=== PATIENT | female | born 1980 | race Caucasian/White ===

== ENCOUNTER 2018-02-07 20:45 | Inpatient (IN) | payer MEDICAID, SELFPAY ==
[2018-02-07 20:46] VITALS: BP 119/82; PULSE 92; RESP 16; TEMP 36.2; O2SAT 97; BMI 30.1
--- NOTE | 2018-02-07 21:04 | ED.DCSUM_ITS ---
- ER Visit Summary Date of Service: 02/07/18 Chief Complaint: Right ear pain History of Present Illness: The patient is a 37 F who presents for 1 day of severe right ear pain. Patient states she woke up with dull pain that became gradually more severe during the day. Pain now involves her jaw, behind the ear, the right neck, and radiates into the right shoulder. Patient denies fever. She is tried Tylenol without any improvement. She is now feeling nauseated secondary to the pain. No cough, chest pain, abdominal pain, vomiting. Patient is status post hysterectomy. She denies any prior history of pain this severe but has had right ear pain in the past. Physical Examination: Vital signs: afebrile, hemodynamically stable, no hypoxia on room air General: well nourished, well developed, in no distress, appears uncomfortable Skin: warm, dry, no rash, no pallor HEENT: normocephalic and atraumatic; PERRL, EOMI, moist mucous membranes, posterior oropharyngeal erythema noted, pain with opening of the mouth, right TM is dull, bulging, erythematous, external ear canal has exudate and swelling, tenderness over the mastoid, tenderness over the right anterior and posterior neck, full range of motion, no meningismus Cardiovascular: regular rate and rhythm without murmurs, no peripheral edema Respiratory: No increased work of breathing MSK: Moves all extremities, no deformities, normal strength Neuro: Awake and alert, oriented ?4. No facial droop, sensation and motor func tion intact and symmetric Test Results: Abnormal Lab Results 02/07/18 02/07/18 21:25 21:25 WBC 8.6 RBC 4.71 Hgb 14.1 Hct 42.7 MCV 90.7 MCH 29.9 MCHC 33.0 RDW 13.8 RDW Differential 45.1 H Plt Count 256 MPV 10.3 Immature Gran % (Auto) 0.200 Neut % (Auto) 64.4 Lymph % (Auto) 27.4 [place] % (Auto) 4.9 Eos % (Auto) 2.5 Baso % (Auto) 0.6 Absolute Neuts (auto) 5.6 Absolute Lymphs (auto) 2.37 Total Counted Not Reportable Sodium 145 Potassium 3.8 Chloride 110 H Carbon Dioxide 30.0 Anion Gap 5 BUN 12 Creatinine 0.81 Estim Creat Clear Calc 77.90 Est GFR (MDRD) Af Amer 102 Est GFR (MDRD) Non-Af 84 BUN/Creatinine Ratio 14.9 Glucose 109 H Calcium 8.7 Medications Given Cefepime HCl 2 gm/ Sodium (Chloride) 100 mls @ 200 mls/hr IV X1 ONE Stop: 02/07/18 22:50 Vancomycin HCl 2,000 mg/ (Dextrose) 540 mls @ 250 mls/hr IV X1 ONE Stop: 02/08/18 00:39 Discontinued Medications Ketorolac Tromethamine (Toradol) 15 mg IV X1 ONE Stop: 02/07/18 21:02 Last Admin: 02/07/18 21:20 Dose: 15 mg Morphine Sulfate () 4 mg IV X1 ONE Stop: 02/07/18 22:23 Ondansetron HCl (Zofran) 4 mg IV X1 ONE Stop: 02/07/18 22:23 Clinical Impression(s) from Imaging Studies CT Orbit Sella Inner 02/07/18 21:06 IMPRESSION: Findings consistent with right otomastoiditis. Cannot exclude possibility of coexisting cholesteatoma. Electronically Signed: Remy Holloway MD at 22:16 EDT , Service support , Emergency Department Course and Treatment: Patient presents with severe right- sided ear pain, and has no findings of rash concerning for zoster. Because of the severe pain, including mastoid tenderness, workup was performed to evaluate for possible mastoiditis. Patient was given Toradol IV for pain without any relief. Labs showed no leukocytosis. CT of the right mastoid was performed and was consistent with right otomastoiditis with possibility of coexisting cholesteatoma. Patient was started on IV vancomycin and cefepime. She was given morphine and Zofran for further pain control. Patient will be admitted for further valuation and treatment of acute otomastoiditis. She was discussed with the hospitalist for admission. Treatment Plan: [] Disposition: [] Impression: Acute right otomastoiditis This note was generated with [employer] software. It may contain incorrect words, spelling, and punctuation that were not noted in review of the chart prior to signing ED Disposition - Plan for ED Patient: Chief Complaint: Ear Problem Referrals: Marlon Luz MD [NON-STAFF] -
--- NOTE | 2018-02-07 21:06 | CT_ITS ---
CT of the IACs/temporal bone INDICATION: Right ear infection TECHNIQUE: CT of the right ureter was performed without contrast the axial plane followed by sagittal and coronal reconstructions. Radiographic technique was optimized to limit patient radiation dose. DLP was 899.25 FINDINGS: There is soft tissue thickening of the posterior superior wall of the right external auditory canal with mild retraction of the tympanic membrane. There is involvement of the [place] septum and possibility of cholesteatoma cannot be excluded. There is soft tissue thickening which appears to be contiguous with the malleus There is also soft tissue thickening within the posterior medial tympanic cavity contiguous with the cochlea. There is also focal involvement of the anterior medial mastoid air cell complex. CT/Orb Sella Post Fossa Ear w/o IMPRESSION: Findings consistent with right otomastoiditis. Cannot exclude possibility of coexisting cholesteatoma. Electronically Signed: Remy Holloway MD at 22:16 EDT , Service support ,
[2018-02-07] MEDS: Ketorolac 15 MG/ML Vial IV (21:20)
[2018-02-07 21:42] LABS: Absolute Lymphocyte Count 2.37 X10^3/ul (0.83-4.51); Absolute Neutrophil Count 5.6 X10^3/uL (2.0-7.7); Basophil# 0.05 X10^3/uL; Basophil% 0.6 % (0-1); Eosinophil# 0.22 X10^3/uL; Eosinophils% 2.5 % (0-5); Hematocrit 42.7 % (37-47); Hemoglobin 14.1 g/dl (12.0-15.0); Lymphocyte # 2.37 X10^3/ul (4.0); Lymphocyte % 27.4 % (19-41); Mean Corpuscular Hgb 29.9 pg (27.0-32.0); Mean Corpuscular Volume 90.7 fL (81-99); Mean Platelet Vol. 10.3 fl (6.2-12.0); Monocyte# 0.42 X10^3/uL; Monocyte% 4.9 % (0-10); Neutrophil # 5.56 X10^3/uL (2.7-7.7); Neutrophil % 64.4 % (47-70); Platelet Count 256 K/mm3 (150-450); RBC Distribution Width CV 13.8 % (11.6-14.6); RBC Distribution Width SD 45.1 fl (35.1-43.9); Red Blood Count 4.71 M/mm3 (4.2-5.4); White Blood Count 8.6 K/mm3 (4.4-11.0)
[2018-02-07 21:46] LABS: POSITIVE COUNT NO; POSITIVE DIFFERENTIAL NO; POSITIVE MORPHOLOGY NO
[2018-02-07 22:15] LABS: BUN 12 mg/dL (7-18); Creatinine, Serum 0.81 mg/dL (0.55-1.02); Glucose 109 mg/dL (74-106)
[2018-02-07 22:16] LABS: Anion Gap 5 (5-15); BUN/Creat Ratio 14.9 RATIO (10-20); Calcium,Total 8.7 mg/dL (8.5-10.1); Chloride 110 mmol/L (98-107); EST Glomerular Filtration Rate 84 mL/min (>60); Est Glom Filt Rate - Afr Amer 102 mL/min (>60); Potassium 3.8 mmol/L (3.5-5.1); Sodium Level 145 mmol/L (136-145)
[2018-02-07] MEDS: Ondansetron 4 MG/2 ML Vial IV (22:37)
[2018-02-07] MEDS: Morphine 4 MG/ML Syringe IV (22:37)
--- NOTE | 2018-02-07 23:16 | HP.PCM_ITS ---
Problem List (1) Otitis media Status: Acute (2) Mastoiditis Status: Acute History of Present Illness Date of Admission: 02/07/18 Chief Complaint: right ear pain The patient is a 37 year old F with a significant history of prediabetes who presents because of persistent sharp pain of her right ear that began on the day of admission. The pain radiates to her right shoulder and onto her neck. Patient tried Tylenol; peroxide and hot compresses without any real relief. She reports that hot drink helps her pain somewhat also not opening her mouth improves her pain. Her pain is exacerbated by talking and by moving. Past Medical History Past Medical History (Chronic Problems): Chronic Problems History of small bowel obstruction (Chronic) History of multiple abdominal surgeries (Chronic) Allergies hydromorphone HCl [From Dilaudid] Allergy (Severe, Verified 02/07/18 20:46) Anaphylaxis aspirin [From Percodan] Allergy (Intermediate, Verified 02/07/18 20:46) Swelling oxycodone terephthalate [From Percodan] Allergy (Intermediate, Verified 02/07/18 20:46) Swelling amoxicillin Allergy (Verified 02/07/18 20:46) Hives azithromycin Allergy (Verified 02/07/18 20:46) Other erythromycin base Allergy (Verified 02/07/18 20:46) Hives oxycodone HCl [From Percocet] Allergy (Verified 02/07/18 20:46) Anaphylaxis propoxyphene napsylate [From Darvocet-N] Allergy (Verified 02/07/18 20:46) Other Sulfa (Sulfonamide Antibiotics) Allergy (Verified 02/07/18 20:46) Other tramadol Allergy (Verified 02/07/18 20:46) Hives gabapentin Adverse Reaction (Verified 02/07/18 20:46) Other Home Medications: Ambulatory Orders Medication Instructions Recorded Inulin/Chromium Picolinate [Fiber 1 tab PO DAILY 02/08/18 Gummies] Surgical History: hysterectomy, - - Small bowel reconstruction Lives: - - Lives with a friend. Smoking Status: Current every day smoker Tobacco Use: Cigarettes Alcohol: None - *Family History Paternal History Items: Cancer, Diabetes, - - luekemia, strokes. Maternal History Items: Cancer Review of Systems Constitutional: Denies: Chills, Fever, Weight Change HEENT: Denies: Head Aches, Sinus Congestion, Sinus Drainage Cardiovascular: Denies: Chest Pain, Palpitations Respiratory: Denies: Cough, Shortness of breath at rest, Sputum production Gastrointestinal: Denies: Abdominal Pain, Nausea, Vomiting Genitourinary: Denies: Dysuria Musculoskeletal: Denies: Joint Pain, Joint Tenderness Skin: Denies: Rash, Wounds Neurological: Denies: Numbness, Tingling, Focal weakness Psychiatric: Denies: Anxiety, Depression, Homicidal Ideations, Suicidal Ideations Hematologic/ Lymphatic: Denies: Easy Bruising, Easy Bleeding VTE Information - Inpt Only VTE Present on Admission: No VTE Mechan Device Prophylaxis: None VTE Pharm Prophylaxis ordered?: Yes Patient Problems: Active and Suspected Problems Otitis media (Acute) Mastoiditis (Acute) - Physical Exam General: Alert, Oriented x3, Cooperative HEENT: Atraumatic, PERRLA, EOMI, Normocephalic, - - Tympanic membrane with redness and mabry discharge on right side. Tender right ear and right mastoid area. Neck: Supple, No JVD, Negative Carotid Bruits Lungs: Clear to auscultation, Normal air movement Cardiovascular: Regular rate, No murmurs Abdomen: Bowel Sounds Present, Soft, Non Tender Extremities: No edema, Capillary Refill Less than 3 Seconds Skin: No rashes, No breakdown Musculoskeletal: No Tenderness to Palpation of Joints or Extremities Neurological: Cranial nerves II-XII grossly intact Psych/Mental Status: Normal Affect, Appropriate Vital Signs Temp Pulse Resp BP Pulse Ox 97.2 F L 92 16 119/82 H 97 02/07/18 20:46 02/07/18 20:46 02/07/18 20:46 02/07/18 20:46 02/07/18 20:46 Oxygen Delivery Method Room Air Weight: 77.1 kg Body Mass Index (BMI) 30.1 Laboratory Tests Past 24 Hrs 02/07/18 02/07/18 21:25 21:25 WBC 8.6 RBC 4.71 Hgb 14.1 Hct 42.7 MCV 90.7 MCH 29.9 MCHC 33.0 RDW 13.8 RDW Differential 45.1 H Plt Count 256 MPV 10.3 Immature Gran % (Auto) 0.200 Neut % (Auto) 64.4 Lymph % (Auto) 27.4 [place] % (Auto) 4.9 Eos % (Auto) 2.5 Baso % (Auto) 0.6 Absolute Neuts (auto) 5.6 Absolute Lymphs (auto) 2.37 Total Counted Not Reportable Sodium 145 Potassium 3.8 Chloride 110 H Carbon Dioxide 30.0 Anion Gap 5 BUN 12 Creatinine 0.81 Estim Creat Clear Calc 77.90 Est GFR (MDRD) Af Amer 102 Est GFR (MDRD) Non-Af 84 BUN/Creatinine Ratio 14.9 Glucose 109 H Calcium 8.7 Assessment/Plan All Active Problems Otitis media (Acute) Mastoiditis (Acute) Obesity (BMI 30-39.9) (Acute) Ileus (Acute) The patient is a 37 year old F with a significant history of tobacco abuse; and prediabetes who presents with persistent sharp pain of her right ear; right external ear tenderness; redness and discharge of TM; and tender mastoid area consistent with acute R otitis media with otitis external and mastoiditis. Acute right otitis media with otitis external and mastoiditis. Review of labs shows normal white count. Patient received vancomycin and cefepime at emergency department. Patient is allergic to penicillin. Vancomycin and cefepime continued. Reportedly patient is having itchiness in the setting of antibiotic use. As needed Benadryl ordered. ENT and infectious disease consulted to optimize management. Patient reports that in the past she saw Dr. Shar Wiley, ENT for left ear infection; and she had wick placed at that time in her left ear. We will trend CBC and BMP. Mechanical soft diet ordered. Patients with hyperchloremia and high normal sodium; anticipating decrease intake due to pain in right ear;half-normal saline ordered As needed Toradol and morphine ordered. Tobacco abuse Patient declined nicotine patch Counselled. Inpatient consult for smoking cessation. DVT prophylaxis subcutaneous lovenox Code Visit OBSV E&M: 69822 Initial observation care L2
[2018-02-07 23:24] VITALS: BP 94/70; PULSE 62; RESP 16; O2SAT 97
[2018-02-08] VITALS (9 sets, daily range): BP systolic 70–134; BP diastolic 36–71; PULSE 63–85; RESP 14–18; TEMP 36.7–37.7; O2SAT 93–100; BMI 28.7
[2018-02-08] MEDS: DiphenhydrAMINE 50 MG/ML Syringe 12.5 MG IV (01:25)
[2018-02-08] MEDS: 0.9% NaCl Peripheral Flush Adult/Peds IV ×4 (01:25→21:41)
[2018-02-08] MEDS: Morphine 2 MG/ML Syringe IV (01:25)
[2018-02-08] MEDS: 0.45% Normal Saline 1,000 ML 75 ML IV (01:25)
[2018-02-08] MEDS: Ketorolac 30 MG/ML Syringe IV ×2 (03:30→20:51)
--- NOTE | 2018-02-08 04:25 | PHA.PHARE_ITS ---
Consult Pharmacy has been consulted to manage selected antiobiotic: Vancomycin Type of Consult: New start Prior Doses of Antibiotics Received/Current Regimen: Medications Cefepime HCl 2 gm/ Sodium (Chloride) 100 mls @ 200 mls/hr IV Q8 [facility] Labs: Sodium 145 mmol/L (136-145) 02/07/18 21:25 Potassium 3.8 mmol/L (3.5-5.1) 02/07/18 21:25 Chloride 110 mmol/L (98-107) H 02/07/18 21:25 Carbon Dioxide 30.0 mmol/L (21.0-32.0) 02/07/18 21:25 Anion Gap 5 (5-15) 02/07/18 21:25 BUN 12 mg/dL (7-18) 02/07/18 21:25 Creatinine 0.81 mg/dL (0.55-1.02) 02/07/18 21:25 Est GFR (MDRD) Af Amer 102 mL/min (>60) 02/07/18 21:25 Est GFR (MDRD) Non-Af 84 mL/min (>60) 02/07/18 21:25 BUN/Creatinine Ratio 14.9 RATIO (10-20) 02/07/18 21:25 Glucose 109 mg/dL (74-106) H 02/07/18 21:25 Estimated Creatinine Clearance: 77.9 Goal Trough: 15-20 mcg/mL Pharmacy Plan for Drug Dosing: Pharmacy Service will continue to monitor and adjust dosing as required. Medications Vancomycin HCl (Vancomycin) 1,000 mg in 200 mls @ 200 mls/hr IV Q12H [facility] Discontinued Medications Vancomycin HCl 2,000 mg/ (Dextrose) 540 mls @ 250 mls/hr IV X1 ONE Stop: 02/08/18 00:39 Last Admin: 02/07/18 23:21 Dose: 250 mls/hr Follow-Up Labs: Trough Vancomycin Labs to be done on [date and time ordered]: 02/09 @ 1135
[2018-02-08] MEDS: DiphenhydrAMINE 25 MG Capsule PO (05:57)
[2018-02-08 06:46] LABS: Absolute Lymphocyte Count 0.93 X10^3/ul (0.83-4.51); Absolute Neutrophil Count 6.7 X10^3/uL (2.0-7.7); Basophil# 0.02 X10^3/uL; Basophil% 0.2 % (0-1); Eosinophil# 0.04 X10^3/uL; Eosinophils% 0.5 % (0-5); Hematocrit 43.7 % (37-47); Hemoglobin 13.6 g/dl (12.0-15.0); Lymphocyte # 0.93 X10^3/ul (4.0); Lymphocyte % 11.6 % (19-41); Mean Corp Hgb Conc 31.1 g/gl (32-36); Mean Corpuscular Hgb 29.1 pg (27.0-32.0); Mean Corpuscular Volume 93.6 fL (81-99); Mean Platelet Vol. 9.8 fl (6.2-12.0); Monocyte# 0.32 X10^3/uL; Neutrophil # 6.68 X10^3/uL (2.7-7.7); Neutrophil % 83.5 % (47-70); Platelet Count 142 K/mm3 (150-450); RBC Distribution Width CV 13.8 % (11.6-14.6); RBC Distribution Width SD 45.1 fl (35.1-43.9); Red Blood Count 4.67 M/mm3 (4.2-5.4)
[2018-02-08 06:49] LABS: POSITIVE COUNT NO; POSITIVE DIFFERENTIAL NO; POSITIVE MORPHOLOGY NO
[2018-02-08 07:08] LABS: Anion Gap 10 (5-15); BUN 14 mg/dL (7-18); Chloride 114 mmol/L (98-107); Creatinine, Serum 0.88 mg/dL (0.55-1.02); EST Glomerular Filtration Rate 77 mL/min (>60); Est Glom Filt Rate - Afr Amer 93 mL/min (>60); Glucose 117 mg/dL (74-106); Potassium 3.8 mmol/L (3.5-5.1); Sodium Level 140 mmol/L (136-145)
--- NOTE | 2018-02-08 09:53 | PCM.HP.ID ---
Problem List (1) Mastoiditis Status: Acute Reason for Consult: mastoiditis Consulted by: Dr. Smith History of Present Illness: The patient is a 37 year old F with no h/o MRSA infection who presented yesterday with sudden onset of severe, stabbing R ear pain. No fever, no chills, no drainage from her ear. No recent dental problems. No recent abx. Multiple family members sick recently. Came to ED< started on cefepime and vanc. Some head and neck pain, no stiffness. No vision changes. Pain minimally improved today. Full ROS performed and neg except as noted above. - Medical History Past Medical History (Chronic Problems): Chronic Problems History of small bowel obstruction (Chronic) History of multiple abdominal surgeries (Chronic) Allergies/Adverse Reactions: Allergies hydromorphone HCl [From Dilaudid] Allergy (Severe, Verified 02/08/18 00:35) Anaphylaxis aspirin [From Percodan] Allergy (Intermediate, Verified 02/08/18 00:35) Swelling oxycodone terephthalate [From Percodan] Allergy (Intermediate, Verified 02/08/18 00:35) Swelling amoxicillin Allergy (Verified 02/08/18 00:35) Hives azithromycin Allergy (Verified 02/08/18 00:35) Other erythromycin base Allergy (Verified 02/08/18 00:35) Hives oxycodone HCl [From Percocet] Allergy (Verified 02/08/18 00:35) Anaphylaxis propoxyphene napsylate [From Darvocet-N] Allergy (Verified 02/08/18 00:35) Other Sulfa (Sulfonamide Antibiotics) Allergy (Verified 02/08/18 00:35) Other tramadol Allergy (Verified 02/08/18 00:35) Hives gabapentin Adverse Reaction (Verified 02/08/18 00:35) Other Home Medications: Ambulatory Orders Medication Instructions Recorded Inulin/Chromium Picolinate [Fiber 1 tab PO DAILY 02/08/18 Gummies] - Social History Tobacco Use: cigarettes Vital Signs Temp Pulse Resp BP Pulse Ox 98.1 F 63 16 94/53 L 95 02/08/18 03:28 02/08/18 03:28 02/08/18 03:28 02/08/18 03:28 02/08/18 03:35 Oxygen Delivery Method Room Air Weight: 74.191 kg Body Mass Index (BMI) 28.7 Laboratory Tests Past 24 Hrs 02/07/18 02/07/18 02/08/18 21:25 21:25 06:34 WBC 8.6 RBC 4.71 Hgb 14.1 Hct 42.7 MCV 90.7 MCH 29.9 MCHC 33.0 RDW 13.8 RDW Differential 45.1 H Plt Count 256 MPV 10.3 Immature Gran % (Auto) 0.200 Neut % (Auto) 64.4 Lymph % (Auto) 27.4 [place] % (Auto) 4.9 Eos % (Auto) 2.5 Baso % (Auto) 0.6 Absolute Neuts (auto) 5.6 Absolute Lymphs (auto) 2.37 Total Counted Not Reportable Sodium 145 140 Potassium 3.8 3.8 Chloride 110 H 114 H Carbon Dioxide 30.0 16.0 L Anion Gap 5 10 BUN 12 14 Creatinine 0.81 0.88 Estim Creat Clear Calc 77.90 71.70 Est GFR (MDRD) Af Amer 102 93 Est GFR (MDRD) Non-Af 84 77 BUN/Creatinine Ratio 14.9 16.0 Glucose 109 H 117 H Calcium 8.7 8.0 L 02/08/18 06:34 WBC 8.0 RBC 4.67 Hgb 13.6 Hct 43.7 MCV 93.6 MCH 29.1 MCHC 31.1 L RDW 13.8 RDW Differential 45.1 H Plt Count 142 L MPV 9.8 Immature Gran % (Auto) 0.200 Neut % (Auto) 83.5 H Lymph % (Auto) 11.6 L [place] % (Auto) 4.0 Eos % (Auto) 0.5 Baso % (Auto) 0.2 Absolute Neuts (auto) 6.7 Absolute Lymphs (auto) 0.93 Total Counted Not Reportable Sodium Potassium Chloride Carbon Dioxide Anion Gap BUN Creatinine Estim Creat Clear Calc Est GFR (MDRD) Af Amer Est GFR (MDRD) Non-Af BUN/Creatinine Ratio Glucose Calcium - Other Studies Radiology: [] reviewed Other Studies: [] Route of nutrition/ use of supplements: [] Nutritional Intake: [] IV Site: [] [place] Catheter: [] - Physical Exam General: Alert, - - uncomfortable HEENT: Atraumatic, PERRLA, EOMI, - - poor dentition, multiple rotten/cracked teeth. R ear very tender, mild redness inside canal Neck: Supple, No Nodes Lungs: Clear to auscultation, Normal air movement Cardiovascular: Regular rate, Regular Rhythm Abdomen: Soft, Non Tender, Non-Distended Extremities: No edema Skin: No rashes IV Site: Peripheral, without redness Musculoskeletal: No Tenderness to Palpation of Joints or Extremities Neurological: Cranial nerves II-XII grossly intact - Assessment/Plan Antibiotics: [] Assessment/Plan: [] Active and Suspected Problems Otitis media (Acute) Mastoiditis (Acute) R ear acute mastoiditis - ENT to see. Order MRSA screen. No purulence draining. On vanc/cefepime. Will order panorex due to poor dentition. Will follow, thank you.
--- NOTE | 2018-02-08 09:57 | RAD_ITS ---
STUDY: X-RAY - MANDIBLE (COMPLETE) REASON FOR EXAM: Female, 37 years old. Acute right otomastoiditis. TECHNIQUE: 6 view(s) of the mandible were obtained. COMPARISON: None. FINDINGS: Normal mandible. Normal visualized right temporomandibular joint. Normal visualized left temporomandibular joint. The remaining visualized osseous structures are normal. The soft tissue structures are unremarkable. RAD/Mandible Min 4 Views IMPRESSION: Normal x-ray examination of the mandible. Electronically Signed: Kali Luque MD at 12:20 EDT Tel [phone], Service support ,
--- NOTE | 2018-02-08 10:18 | CASEMGMT ---
Social Work Assessment Referral Date: 02/08/2018 Date of Assessment: 02/08/2018 Reason for consult: Self-pay status Informant: SW Personal status: SW met with pt to complete initial assessment. Pt is alert and orientated and was sleeping when this worker entered the room. Pt states that she currently lives with her sister and she works at [employer]. Pt states that she had Medicaid/[employer] but she let it relapse. SW encouraged pt to be in contact with [employer] to determine what paperwork needs to be filled out so she is able to get her insurance back. Pt states that she has close family members. Pt states that her plan is to return to her sister's home at discharge, denied additional needs or concerns at this time. Substance Abuse Hx: Pt denied. Per H+P pt does use tobacco. Mental Health Hx: Pt states that at one time she was informed that she had Bipolar. Pt states she doesn't take medication for it though and has never seen a counselor. Pt denied wanting counseling resources. SW provided pt with [facility]CAP application, [facility], [employer], [employer], prescription assistance and Medicaid Application. SW again encouraged pt to be on contact with [employer] to see about reinstating her Medicaid. Pt states understanding. Plan: Pt to discharge home. Pt to follow up with [employer] in regards to Medicaid. Donna Martinez PRIMING MACHINE OPERATOR, HVAC INSTRUCTOR
[2018-02-08] MEDS: Enoxaparin 40 MG/0.4 ML Syringe SC (10:23)
--- NOTE | 2018-02-08 11:15 | NURSING ---
Patient off unit to x-ray.
[2018-02-08] MEDS: Vancomycin IV 1,000 MG/200 ML BAG 200 MG IV ×2 (11:54→23:04)
--- NOTE | 2018-02-08 12:21 | PCM.CONS.GEN ---
Problem List (1) Mastoiditis Status: Acute (2) Otitis media Status: Acute Reason for Consult Date of Consultation: 02/08/18 Reason for Consultation: mastoiditis History of Present Illness: The patient is a 37 year old F who was admitted to the emergency department for acute onset of severe right-sided ear pain. She reports that she was at work where she suffered a sudden onset of a sharp stabbing ear pain on the right side without a precipitating event. During her hospitalization this has improved somewhat but the pain continues to radiate down along her jaw and right side of the neck. She denies prior history of ear surgery, ear disease, or infection. I reminded her that her admission note states prior treatment of that ear but she states this was distant and prior to delivery of her son many years ago. She does admit to possible water exposure to that ear prior to the onset of this pain complaint. She denies recent illness or sick contacts. She reports the intravenous antibiotic medication seems to be resulting in some improvement. She reports that the pain is severe and stabbing in nature on the right side. She denies any drainage from the ear or significant hearing loss or dizziness. [] Past Medical History Past Medical History (Chronic Problems): Chronic Problems History of small bowel obstruction (Chronic) History of multiple abdominal surgeries (Chronic) Allergies hydromorphone HCl [From Dilaudid] Allergy (Severe, Verified 02/08/18 00:35) Anaphylaxis aspirin [From Percodan] Allergy (Intermediate, Verified 02/08/18 00:35) Swelling oxycodone terephthalate [From Percodan] Allergy (Intermediate, Verified 02/08/18 00:35) Swelling amoxicillin Allergy (Verified 02/08/18 00:35) Hives azithromycin Allergy (Verified 02/08/18 00:35) Other erythromycin base Allergy (Verified 02/08/18 00:35) Hives oxycodone HCl [From Percocet] Allergy (Verified 02/08/18 00:35) Anaphylaxis propoxyphene napsylate [From Darvocet-N] Allergy (Verified 02/08/18 00:35) Other Sulfa (Sulfonamide Antibiotics) Allergy (Verified 02/08/18 00:35) Other tramadol Allergy (Verified 02/08/18 00:35) Hives gabapentin Adverse Reaction (Verified 02/08/18 00:35) Other Home Medications: Ambulatory Orders Medication Instructions Recorded Inulin/Chromium Picolinate [Fiber 1 tab PO DAILY 02/08/18 Gummies] Surgical History: hysterectomy, - - Small bowel reconstruction Lives: - - Lives with a friend. Smoking Status: Current every day smoker Tobacco Use: Cigarettes Alcohol: None - *Family History Paternal History Items: Cancer, Diabetes, - - luekemia, strokes. Maternal History Items: Cancer Review of Systems Constitutional: Denies: Anorexia, Chills, Fever Eyes: Denies: Blurred vision, Cataracts HEENT: Reports: Ear Pain. Denies: Difficulty Hearing, Difficulty Swallowing, Dysphasia, Eye Pain, Hard of Hearing, Head Aches, Post Nasal Drip, Sinus Congestion, Sinus Drainage, Sore Throat Cardiovascular: Denies: Chest Pain, Chest Pressure Respiratory: Denies: Cough, Hemoptysis Gastrointestinal: Denies: Abdominal Pain Genitourinary: Denies: Dysuria Musculoskeletal: Denies: Arm Pain, Back Pain Neurological: Denies: Balance problems, Blurred vision, Double vision Psychiatric: Denies: Anxiety, Depression Hematologic/ Lymphatic: Denies: Adenopathy Patient Problems: Active and Suspected Problems Otitis media (Acute) Mastoiditis (Acute) Subjective: Patient is found in her bed with her eyes closed with the intravenous nurse at bedside for her blood draw. When introduced she does acknowledge my presence but is reluctant to open her eyes. She is otherwise conversant and cooperative. Objective: Patient at the bedside is somewhat abnormal in her interpersonal affect but is otherwise cooperative with examination and provision of her history. Examination of the right ear does show inflammation and granulation tissue of the tympanic membrane but no sixto discharge or drainage or canal stenosis. There is no redness erythema or fluctuance over the mastoid tip. Palpation of the parotid and sternocleidomastoid on the right side is reported as exquisitely tender however there is no erythema fluctuance discharge or adenopathy. - Physical Exam General: Alert, Oriented x3, Cooperative, No apparent distress HEENT: Atraumatic, PERRLA, EOMI, Normocephalic, EAC Clear, - - Granulation tissue of the right tympanic membrane Oral: Moist Mucosa, - - Poor nutrition with dental caries Neck: Supple, Trachea Midline, - Lungs: Normal air movement Cardiovascular: Regular rate, Regular Rhythm Skin: No rashes, No breakdown Lymphatic: - Psych/Mental Status: Flat Affect, Alert and oriented to time, place, person, mood and affect Vital Signs Temp Pulse Resp BP Pulse Ox 99.4 F H 79 18 93/54 L 100 02/08/18 11:10 02/08/18 11:10 02/08/18 11:10 02/08/18 11:10 02/08/18 11:10 Oxygen Delivery Method Room Air Weight: 74.191 kg Body Mass Index (BMI) 28.7 Intake and Output for Last 24 Hours 02/06/18 02/07/18 02/08/18 23:59 23:59 23:59 Intake Total 2123 / 2123 Output Total 500 / 500 Balance 1623 / 1623 Laboratory Tests Past 24 Hrs 02/07/18 02/07/18 02/08/18 21:25 21:25 06:34 WBC 8.6 RBC 4.71 Hgb 14.1 Hct 42.7 MCV 90.7 MCH 29.9 MCHC 33.0 RDW 13.8 RDW Differential 45.1 H Plt Count 256 MPV 10.3 Immature Gran % (Auto) 0.200 Neut % (Auto) 64.4 Lymph % (Auto) 27.4 [place] % (Auto) 4.9 Eos % (Auto) 2.5 Baso % (Auto) 0.6 Absolute Neuts (auto) 5.6 Absolute Lymphs (auto) 2.37 Total Counted Not Reportable Sodium 145 140 Potassium 3.8 3.8 Chloride 110 H 114 H Carbon Dioxide 30.0 16.0 L Anion Gap 5 10 BUN 12 14 Creatinine 0.81 0.88 Estim Creat Clear Calc 77.90 71.70 Est GFR (MDRD) Af Amer 102 93 Est GFR (MDRD) Non-Af 84 77 BUN/Creatinine Ratio 14.9 16.0 Glucose 109 H 117 H Calcium 8.7 8.0 L 02/08/18 06:34 WBC 8.0 RBC 4.67 Hgb 13.6 Hct 43.7 MCV 93.6 MCH 29.1 MCHC 31.1 L RDW 13.8 RDW Differential 45.1 H Plt Count 142 L MPV 9.8 Immature Gran % (Auto) 0.200 Neut % (Auto) 83.5 H Lymph % (Auto) 11.6 L [place] % (Auto) 4.0 Eos % (Auto) 0.5 Baso % (Auto) 0.2 Absolute Neuts (auto) 6.7 Absolute Lymphs (auto) 0.93 Total Counted Not Reportable Sodium Potassium Chloride Carbon Dioxide Anion Gap BUN Creatinine Estim Creat Clear Calc Est GFR (MDRD) Af Amer Est GFR (MDRD) Non-Af BUN/Creatinine Ratio Glucose Calcium Assessment/Plan All Active Problems Otitis media (Acute) Mastoiditis (Acute) Obesity (BMI 30-39.9) (Acute) Ileus (Acute) This patient is a 37-year-old with acute onset of right ear pain admitted for possible mastoiditis and acute otitis media. On clinical examination she does have granulation and inflammation of the right tympanic membrane. Her CT scan is reviewed which shows thickening of the tympanic membrane and the attic consistent with possible cholesteatoma and middle ear disease. The mastoid air cells are well aerated without bony breakdown fluid collection or swelling or induration of the soft tissues and this would not suggest significant mastoid disease. She does have prediabetic condition which increases her risk for invasive infection of the ear canal or middle ear space. Continued broad-spectrum antibiotic coverage particularly for possible pseudomonal infection is advised. I would suggest addition of another topical antibiotic such as a titi quinolone with a steroid for both topical coverage and relief of her pain. Follow-up as an outpatient is advised for further evaluation of the response to therapy the tympanic membrane and possibility of cholesteatoma of the middle ear cleft. I discussed with her at the bedside that [facility] be to see her for this follow-up care although as she has a distant history with the [facility] she may see them as well if she would prefer. There does not seem to be any other need for acute surgical intervention and as there is no ear canal swelling or discharge no further instrumentation of the ear appears to be warranted.
[2018-02-08 12:54] LABS: BUN 15 mg/dL (7-18); Creatinine, Serum 1.01 mg/dL (0.55-1.02); Glucose 112 mg/dL (74-106)
[2018-02-08 12:55] LABS: Anion Gap 8 (5-15); BUN/Creat Ratio 14.9 RATIO (10-20); Calcium,Total 8.2 mg/dL (8.5-10.1); Chloride 109 mmol/L (98-107); EST Glomerular Filtration Rate 65 mL/min (>60); Est Glom Filt Rate - Afr Amer 79 mL/min (>60); Estimated Creatinine Clearance 62.47 ml/min; Potassium 4.2 mmol/L (3.5-5.1); Sodium Level 144 mmol/L (136-145)
--- NOTE | 2018-02-08 14:24 | PCM.PN.HOSP ---
Patient Problems: Active and Suspected Problems Otitis media (Acute) Mastoiditis (Acute) Subjective: Patient was seen and examined. She is been very lethargic, insistent on pain medicines. Blood pressures has been running low Vitals/I&O's: Vital Signs Temp Pulse Resp BP Pulse Ox 99.9 F H 74 18 87/51 L 94 02/08/18 13:41 02/08/18 13:41 02/08/18 13:41 02/08/18 13:41 02/08/18 13:41 Oxygen Delivery Method Room Air Weight: 74.191 kg Body Mass Index (BMI) 28.7 Intake and Output for Last 24 Hours 02/06/18 02/07/18 02/08/18 23:59 23:59 23:59 Intake Total 3 / 212 Output Total 500 / 500 Balance 1623 / 1623 General: Alert, Oriented x3, Cooperative, No apparent distress, Lethargic HEENT: Atraumatic, PERRLA, EOMI, Normocephalic, - - Right periauricular tenderness, no erythema Oral: Moist Mucosa Neck: Supple, No JVD, Negative Carotid Bruits Lungs: Clear to auscultation, Normal air movement Cardiovascular: Regular rate, Regular Rhythm, Normal S1, Normal S2, No murmurs Abdomen: Bowel Sounds Present, Soft, Non Tender, Non-Distended, No Hepato-splenomegaly Extremities: No edema Skin: No rashes, No breakdown Musculoskeletal: No Tenderness to Palpation of Joints or Extremities Lymphatic: No Cervical, Supraclavicular, or Inguinal Adenopathy Neurological: Cranial nerves II-XII grossly intact, Neuro grossly intact Psych/Mental Status: Normal Affect, Appropriate Laboratory Results 02/07/18 21:25: WBC 8.6, RBC 4.71, Hgb 14.1, Hct 42.7, MCV 90.7, MCH 29.9, MCHC 33.0, RDW 13.8, RDW Differential 45.1 H, Plt Count 256, MPV 10.3, Immature Gran % (Auto) 0.200, Neut % (Auto) 64.4, Lymph % (Auto) 27.4, [place] % (Auto) 4.9, Eos % (Auto) 2.5, Baso % (Auto) 0.6, Absolute Neuts (auto) 5.6, Absolute Lymphs (auto) 2.37, Total Counted Not Reportable 02/07/18 21:25: Sodium 145, Potassium 3.8, Chloride 110 H, Carbon Dioxide 30.0, Anion Gap 5, BUN 12, Creatinine 0.81, Estim Creat Clear Calc 77.90, Est GFR (MDRD) Af Amer 102, Est GFR (MDRD) Non-Af 84, BUN/Creatinine Ratio 14.9, Glucose 109 H, Calcium 8.7 02/08/18 06:34: Sodium 140, Potassium 3.8, Chloride 114 H, Carbon Dioxide 16.0 L, Anion Gap 10, BUN 14, Creatinine 0.88, Estim Creat Clear Calc 71.70, Est GFR (MDRD) Af Amer 93, Est GFR (MDRD) Non-Af 77, BUN/Creatinine Ratio 16.0, Glucose 117 H, Calcium 8.0 L 02/08/18 06:34: WBC 8.0, RBC 4.67, Hgb 13.6, Hct 43.7, MCV 93.6, MCH 29.1, MCHC 31.1 L, RDW 13.8, RDW Differential 45.1 H, Plt Count 142 L, MPV 9.8, Immature Gran % (Auto) 0.200, Neut % (Auto) 83.5 H, Lymph % (Auto) 11.6 L, [place] % (Auto) 4.0, Eos % (Auto) 0.5, Baso % (Auto) 0.2, Absolute Neuts (auto) 6.7, Absolute Lymphs (auto) 0.93, Total Counted Not Reportable 02/08/18 12:15: Sodium 144, Potassium 4.2, Chloride 109 H, Carbon Dioxide 27.0, Anion Gap 8, BUN 15, Creatinine 1.01, Estim Creat Clear Calc 62.47, Est GFR (MDRD) Af Amer 79, Est GFR (MDRD) Non-Af 65, BUN/Creatinine Ratio 14.9, Glucose 112 H, Calcium 8.2 L Current Medications Diphenhydramine HCl (Benadryl) 25 mg PO Q6H PRN PRN PRN Reason: ITCHING Last Admin: 02/08/18 05:57 Dose: 25 mg Enoxaparin Sodium (Lovenox) 40 mg SC DAILY@1000 EMETERIO Last Admin: 02/08/18 10:23 Dose: 40 mg Cefepime HCl 2 gm/ Sodium (Chloride) 100 mls @ 200 mls/hr IV Q8 [facility] Last Admin: 02/08/18 14:08 Dose: 200 mls/hr Vancomycin IV Pharmacy to Dose (1,250 ea/ Sodium Chloride) 500 mls @ 250 mls/hr IV Q12 PRN; Protocol Vancomycin HCl (Vancomycin) 1,000 mg in 200 mls @ 200 mls/hr IV Q12H [facility] Last Admin: 02/08/18 11:54 Dose: 200 mls/hr Ketorolac Tromethamine (Toradol) 30 mg IV Q6H PRN PRN PRN Reason: MODERATE PAIN (4-5/10) Stop: 02/13/18 00:41 Last Admin: 02/08/18 03:30 Dose: 30 mg Magnesium Hydroxide (Milk Of Magnesia) 30 ml PO DAILY PRN PRN PRN Reason: Constipation Morphine Sulfate () 1 - 2 mg IV Q4H PRN PRN PRN Reason: SEVERE PAIN (6-10/10) Last Admin: 02/08/18 01:25 Dose: 2 mg Ondansetron HCl (Zofran) 4 mg IV Q6H PRN PRN PRN Reason: NAUSEA/VOMITING Sodium Chloride () 5 - 30 ml IV UD PRN PRN Reason: SALINE FLUSH Last Admin: 02/08/18 11:54 Dose: 10 ml Medical Necessity - Tobacco Use Smoking Status: Current every day smoker Tobacco Use: Cigarettes Assessment/Plan All Active Problems Otitis media (Acute) Mastoiditis (Acute) Obesity (BMI 30-39.9) (Acute) Ileus (Acute) 37-year-old female with no significant past medical history comes in with complaints of right ear pain, failed conservative treatment in the outpatient 1. Right otomastoiditis, possible otitis externa, on vancomycin and cefepime, ID consulted, ENT consulted, will follow up on recommendations 2. Relative hypotension secondary to pain medication, will monitor vitals closely, on IV fluids 3. DVT prophylaxis with Lovenox subcu Code Visit Inpatient E&M: 21952 Subs Hosp L2
--- NOTE | 2018-02-08 14:28 | PN_ITS ---
Patient Problems: Active and Suspected Problems Otitis media (Acute) Mastoiditis (Acute) Subjective: Patient was seen and examined. She is been very lethargic, insistent on pain medicines. Blood pressures has been running low Vitals/I&O's: Vital Signs Temp Pulse Resp BP Pulse Ox 99.9 F H 74 18 87/51 L 94 02/08/18 13:41 02/08/18 13:41 02/08/18 13:41 02/08/18 13:41 02/08/18 13:41 Oxygen Delivery Method Room Air Weight: 74.191 kg Body Mass Index (BMI) 28.7 Intake and Output for Last 24 Hours 02/06/18 02/07/18 02/08/18 23:59 23:59 23:59 Intake Total 3 / 212 Output Total 500 / 500 Balance 1623 / 1623 General: Alert, Oriented x3, Cooperative, No apparent distress, Lethargic HEENT: Atraumatic, PERRLA, EOMI, Normocephalic, - - Right periauricular tenderness, no erythema Oral: Moist Mucosa Neck: Supple, No JVD, Negative Carotid Bruits Lungs: Clear to auscultation, Normal air movement Cardiovascular: Regular rate, Regular Rhythm, Normal S1, Normal S2, No murmurs Abdomen: Bowel Sounds Present, Soft, Non Tender, Non-Distended, No Hepato- splenomegaly Extremities: No edema Skin: No rashes, No breakdown Musculoskeletal: No Tenderness to Palpation of Joints or Extremities Lymphatic: No Cervical, Supraclavicular, or Inguinal Adenopathy Neurological: Cranial nerves II-XII grossly intact, Neuro grossly intact Psych/Mental Status: Normal Affect, Appropriate Laboratory Results 02/07/18 21:25: WBC 8.6, RBC 4.71, Hgb 14.1, Hct 42.7, MCV 90.7, MCH 29.9, MCHC 33.0, RDW 13.8, RDW Differential 45.1 H, Plt Count 256, MPV 10.3, Immature Gran % (Auto) 0.200, Neut % (Auto) 64.4, Lymph % (Auto) 27.4, [place] % (Auto) 4.9, Eos % (Auto) 2.5, Baso % (Auto) 0.6, Absolute Neuts (auto) 5.6, Absolute Lymphs (au to) 2.37, Total Counted Not Reportable 02/07/18 21:25: Sodium 145, Potassium 3.8, Chloride 110 H, Carbon Dioxide 30.0, Anion Gap 5, BUN 12, Creatinine 0.81, Estim Creat Clear Calc 77.90, Est GFR (MDRD) Af Amer 102, Est GFR (MDRD) Non-Af 84, BUN/Creatinine Ratio 14.9, Glucose 109 H, Calcium 8.7 02/08/18 06:34: Sodium 140, Potassium 3.8, Chloride 114 H, Carbon Dioxide 16.0 L , Anion Gap 10, BUN 14, Creatinine 0.88, Estim Creat Clear Calc 71.70, Est GFR (MDRD) Af Amer 93, Est GFR (MDRD) Non-Af 77, BUN/Creatinine Ratio 16.0, Glucose 117 H, Calcium 8.0 L 02/08/18 06:34: WBC 8.0, RBC 4.67, Hgb 13.6, Hct 43.7, MCV 93.6, MCH 29.1, MCHC 31.1 L, RDW 13.8, RDW Differential 45.1 H, Plt Count 142 L, MPV 9.8, Immature Gran % (Auto) 0.200, Neut % (Auto) 83.5 H, Lymph % (Auto) 11.6 L, [place] % (Auto) 4.0, Eos % (Auto) 0.5, Baso % (Auto) 0.2, Absolute Neuts (auto) 6.7, Absolute Lymphs (auto) 0.93, Total Counted Not Reportable 02/08/18 12:15: Sodium 144, Potassium 4.2, Chloride 109 H, Carbon Dioxide 27.0, Anion Gap 8, BUN 15, Creatinine 1.01, Estim Creat Clear Calc 62.47, Est GFR (MDRD) Af Amer 79, Est GFR (MDRD) Non-Af 65, BUN/Creatinine Ratio 14.9, Glucose 112 H, Calcium 8.2 L Current Medications Diphenhydramine HCl (Benadryl) 25 mg PO Q6H PRN PRN PRN Reason: ITCHING Last Admin: 02/08/18 05:57 Dose: 25 mg Enoxaparin Sodium (Lovenox) 40 mg SC DAILY@1000 EMETERIO Last Admin: 02/08/18 10:23 Dose: 40 mg Cefepime HCl 2 gm/ Sodium (Chloride) 100 mls @ 200 mls/hr IV Q8 [facility] Last Admin: 02/08/18 14:08 Dose: 200 mls/hr Vancomycin IV Pharmacy to Dose (1,250 ea/ Sodium Chloride) 500 mls @ 250 mls/hr IV Q12 PRN; Protocol Vancomycin HCl (Vancomycin) 1,000 mg in 200 mls @ 200 mls/hr IV Q12H [facility] Last Admin: 02/08/18 11:54 Dose: 200 mls/hr Ketorolac Tromethamine (Toradol) 30 mg IV Q6H PRN PRN PRN Reason: MODERATE PAIN (4-5/10) Stop: 02/13/18 00:41 Last Admin: 02/08/18 03:30 Dose: 30 mg Magnesium Hydroxide (Milk Of Magnesia) 30 ml PO DAILY PRN PRN PRN Reason: Constipation Morphine Sulfate () 1 - 2 mg IV Q4H PRN PRN PRN Reason: SEVERE PAIN (6-10/10) Last Admin: 02/08/18 01:25 Dose: 2 mg Ondansetron HCl (Zofran) 4 mg IV Q6H PRN PRN PRN Reason: NAUSEA/VOMITING Sodium Chloride () 5 - 30 ml IV UD PRN PRN Reason: SALINE FLUSH Last Admin: 02/08/18 11:54 Dose: 10 ml Medical Necessity - Tobacco Use Smoking Status: Current every day smoker Tobacco Use: Cigarettes Assessment/Plan All Active Problems Otitis media (Acute) Mastoiditis (Acute) Obesity (BMI 30-39.9) (Acute) Ileus (Acute) 37-year-old female with no significant past medical history comes in with complaints of right ear pain, failed conservative treatment in the outpatient 1. Right otomastoiditis, possible otitis externa, on vancomycin and cefepime, ID consulted, ENT consulted, will follow up on recommendations 2. Relative hypotension secondary to pain medication, will monitor vitals closely, on IV fluids 3. DVT prophylaxis with Lovenox subcu Code Visit Inpatient E&M: 56483 Subs Hosp L2
[2018-02-08] MEDS: Acetaminophen 325 MG Tablet 650 MG PO (16:53)
[2018-02-08] MEDS: CIPROFLOXACIN HCL/DEXAMETH 7.5 ML DROPS.SUSP OT (17:24)
[2018-02-09 03:45] VITALS: BP 108/59; PULSE 79; RESP 16; TEMP 37.2; O2SAT 97
[2018-02-09] MEDS: Ketorolac 30 MG/ML Syringe IV (03:56)
[2018-02-09 06:56] VITALS: O2SAT 96
[2018-02-09 10:07] VITALS: BP 118/71; PULSE 75; RESP 18; TEMP 36.6; O2SAT 93
--- NOTE | 2018-02-09 10:08 | PN_ITS ---
Patient Problems: Active and Suspected Problems Otitis media (Acute) Mastoiditis (Acute) Subjective: Patient was seen and examined. Complains of pain in the neck and shoulders. Denies any fever or chills. Able to eat her breakfast. Pain in the right knee is much improved. No nausea or vomiting or diarrhea. Objective: Physical exam: General: Alert, Oriented x3, Cooperative, No apparent distress, seen patient eating her breakfast HEENT: Atraumatic, PERRLA, EOMI, Normocephalic, - - Right periauricular tenderness, no erythema Oral: Moist Mucosa Neck: Supple, No JVD, Negative Carotid Bruits Lungs: Clear to auscultation, Normal air movement Cardiovascular: Regular rate, Regular Rhythm, Normal S1, Normal S2, No murmurs Abdomen: Bowel Sounds Present, Soft, Non Tender, Non-Distended, No Hepato- splenomegaly Extremities: No edema Skin: No rashes, No breakdown Musculoskeletal: No Tenderness to Palpation of Joints or Extremities Lymphatic: No Cervical, Supraclavicular, or Inguinal Adenopathy Neurological: Cranial nerves II-XII grossly intact, Neuro grossly intact Psych/Mental Status: Normal Affect, Appropriate Vitals/I&O's: Vital Signs Temp Pulse Resp BP Pulse Ox 97.8 F 75 18 118/71 93 02/09/18 10:07 02/09/18 10:07 02/09/18 10:07 02/09/18 10:07 02/09/18 10:07 Oxygen Delivery Method Room Air Weight: 74.191 kg Body Mass Index (BMI) 28.7 Intake and Output for Last 24 Hours 02/07/18 02/08/18 02/09/18 23:59 23:59 23:59 Intake Total 3935 / 3935 780 / 780 Output Total 1100 / 1100 Balance 2835 / 2835 780 / 780 Laboratory Results 02/08/18 12:15: Sodium 144, Potassium 4.2, Chloride 109 H, Carbon Dioxide 27.0, Anion Gap 8, BUN 15, Creatinine 1.01, Estim Creat Clear Calc 62.47, Est GFR (MDRD) Af Amer 79, Est GFR (MDRD) Non-Af 65, BUN/Creatinine Ratio 14.9, Glucose 112 H, Calcium 8.2 L Current Medications Acetaminophen (Tylenol) 650 mg PO Q6H PRN PRN PRN Reason: PAIN/FEVER Last Admin: 02/08/18 16:53 Dose: 650 mg Ciprofloxacin/Dexamethasone (Ciprodex Otic Suspension) 0 ml OT BID EMETERIO Stop: 02/15/18 10:01 Last Admin: 02/08/18 17:24 Dose: 7.5 ml Diphenhydramine HCl (Benadryl) 25 mg PO Q6H PRN PRN PRN Reason: ITCHING Last Admin: 02/08/18 05:57 Dose: 25 mg Enoxaparin Sodium (Lovenox) 40 mg SC DAILY@1000 EMETERIO Last Admin: 02/08/18 10:23 Dose: 40 mg Cefepime HCl 2 gm/ Sodium (Chloride) 100 mls @ 200 mls/hr IV Q8 [facility] Last Admin: 02/09/18 05:43 Dose: 200 mls/hr Ketorolac Tromethamine (Toradol) 30 mg IV Q6H PRN PRN PRN Reason: MODERATE PAIN (4-5/10) Stop: 02/13/18 00:41 Last Admin: 02/09/18 03:56 Dose: 30 mg Magnesium Hydroxide (Milk Of Magnesia) 30 ml PO DAILY PRN PRN PRN Reason: Constipation Ondansetron HCl (Zofran) 4 mg IV Q6H PRN PRN PRN Reason: NAUSEA/VOMITING Sodium Chloride () 5 - 30 ml IV UD PRN PRN Reason: SALINE FLUSH Last Admin: 02/08/18 21:41 Dose: 10 ml Medical Necessity - Tobacco Use Smoking Status: Current every day smoker Tobacco Use: Cigarettes Assessment/Plan All Active Problems Otitis media (Acute) Mastoiditis (Acute) Obesity (BMI 30-39.9) (Acute) Ileus (Acute) 37-year-old female with no significant past medical history comes in with complaints of right ear pain, failed conservative treatment in the outpatient 1. Right otomastoiditis, possible otitis externa, initially on vancomycin and cefepime, ID consulted, ENT consulted, Vancomycin DC, started on Cipro topical with steroids, will follow up on recommendations 2. Relative hypotension secondary to pain medication, resolved with IV fluids. 3. DVT prophylaxis with Lovenox subcu 4. Disposition: Pending ENT and ID recommendations today. Code Visit Inpatient E&M: 77775 Subs Hosp L2
[2018-02-09] MEDS: Enoxaparin 40 MG/0.4 ML Syringe SC (10:09)
[2018-02-09] MEDS: CIPROFLOXACIN HCL/DEXAMETH 7.5 ML DROPS.SUSP OT ×2 (10:09→20:53)
[2018-02-09] MEDS: Acetaminophen 325 MG Tablet 650 MG PO ×2 (10:11→20:52)
[2018-02-09 14:34] VITALS: BP 112/73; PULSE 67; RESP 18; TEMP 36.8; O2SAT 95
[2018-02-09] MEDS: Ibuprofen 400 MG Tablet PO (14:38)
[2018-02-09] MEDS: 0.9% NaCl Peripheral Flush Adult/Peds IV (14:38)
--- NOTE | 2018-02-09 16:30 | PCM.PN.ID ---
Patient Problems: Active and Suspected Problems Otitis media (Acute) Mastoiditis (Acute) Subjective: Feeling better, pain improved, no fever, no n/v/d. - Physical Exam General: Alert, Cooperative, No apparent distress Lungs: Clear to auscultation, Normal air movement Cardiovascular: Regular rate, Regular Rhythm Abdomen: Soft, Non Tender, Non-Distended Skin: No rashes Vital Signs Temp Pulse Resp BP Pulse Ox 98.3 F 67 18 112/73 95 02/09/18 14:34 02/09/18 14:34 02/09/18 14:34 02/09/18 14:34 02/09/18 14:34 Oxygen Delivery Method Room Air Weight: 74.191 kg Body Mass Index (BMI) 28.7 Intake and Output for Last 24 Hours 02/07/18 02/08/18 02/09/18 23:59 23:59 23:59 Intake Total 3935 / 3935 1260 / 1260 Output Total 1100 / 1100 500 / 500 Balance 2835 / 2835 760 / 760 Microbiology Past 72 Hours 02/08/18 10:10 Nasal Screen MRSA/MSSA - Final Swab (Method) Medical Necessity - Tobacco Use Smoking Status: Current every day smoker Tobacco Use: Cigarettes Route of nutrition/ use of supplements: [] Nutritional Intake: [] IV Site: [] [place] Catheter: [] - Assessment/Plan Antibiotics: [] Assessment/Plan: [] Active and Suspected Problems Otitis media (Acute) Mastoiditis (Acute) R ear acute mastoiditis - ENT following. Will change to po levaquin, plan on 10 more days of abx at discharge. Sx improving Will follow
[2018-02-09] MEDS: levoFLOXacin 500 MG Tablet PO (17:13)
[2018-02-09 20:38] VITALS: BP 118/78; PULSE 64; RESP 14; TEMP 36.6; O2SAT 97
[2018-02-10] MEDS: Ibuprofen 400 MG Tablet PO (00:39)
[2018-02-10 03:23] VITALS: BP 105/82; PULSE 61; RESP 14; TEMP 36.7; O2SAT 96
[2018-02-10] MEDS: Acetaminophen 325 MG Tablet 650 MG PO (05:33)
[2018-02-10] MEDS: levoFLOXacin 500 MG Tablet PO (05:33)
[2018-02-10 07:02] VITALS: O2SAT 97
--- NOTE | 2018-02-10 09:23 | DS.PCM_ITS ---
Discharge Date and Diagnosis Date of Admission: 02/07/18 Date of Discharge: 02/10/18 - Primary Discharge Diagnosis Active and Suspected Problems Otitis media (Acute) Mastoiditis (Acute) Possible otitis externa Relative hypotension - Secondary Discharge Diagnosis Chronic Problems History of small bowel obstruction (Chronic) History of multiple abdominal surgeries (Chronic) Hospital Course and Treatment Imaging Results: Clinical Impression(s) from Imaging Studies CT Orbit Sella Inner 02/07/18 21:06 IMPRESSION: Findings consistent with right otomastoiditis. Cannot exclude possibility of coexisting cholesteatoma. Electronically Signed: Remy Holloway MD at 22:16 EDT , Service support , ADDENDUM: 02/07/18 2224 Mandible X-Ray 02/08/18 09:57 IMPRESSION: Normal x-ray examination of the mandible. Electronically Signed: Kali Luque MD at 12:20 EDT Tel [phone], Service support , ID ENT Operations: None Procedures: None Summary of Care Provided: 37-year-old female with no significant past medical history comes in with complaints of right ear pain, failed conservative treatment in the outpatient. Patient CT scan was suggestive of right otomastoiditis. She was managed as right otomastoiditis with possible otitis externa initially on vancomycin and cefepime. ID and ENT were consulted. Patient was started on ciprofloxacin with steroids topically. Vancomycin was later discontinued after MRSA screen was negative. Patient was found to be relatively hypotensive second to IV morphine. Narcotic medications were discontinued, continued with IV fluids with improvement in her blood pressure. She was discharged on oral Levaquin for 10 more days. Follow-up with ENT in the outpatient. Subjective: On the day of discharge, patient had no complaints. She was tolerating meals without pain in her jaw. Denies fever or chills. Objective: Physical exam: General: Alert, Oriented x3, Cooperative, No apparent distress, HEENT: Atraumatic, PERRLA, EOMI, Normocephalic, - - Right periauricular tenderness, no erythema Oral: Moist Mucosa Neck: Supple, No JVD, Negative Carotid Bruits Lungs: Clear to auscultation, Normal air movement Cardiovascular: Regular rate, Regular Rhythm, Normal S1, Normal S2, No murmurs Abdomen: Bowel Sounds Present, Soft, Non Tender, Non-Distended, No Hepato- splenomegaly Extremities: No edema Skin: No rashes, No breakdown Musculoskeletal: No Tenderness to Palpation of Joints or Extremities Lymphatic: No Cervical, Supraclavicular, or Inguinal Adenopathy Neurological: Cranial nerves II-XII grossly intact, Neuro grossly intact Psych/Mental Status: Normal Affect, Appropriate - Physical Exam Vital Signs Temp Pulse Resp BP Pulse Ox 98.1 F 61 14 105/82 H 97 02/10/18 03:23 02/10/18 03:23 02/10/18 03:23 02/10/18 03:23 02/10/18 07:02 Oxygen Delivery Method Room Air Weight: 74.191 kg Body Mass Index (BMI) 28.7 Intake and Output for Last 24 Hours 02/08/18 02/09/18 02/10/18 23:59 23:59 23:59 Intake Total 3935 / 3935 1960 / 1960 900 / 900 Output Total 1100 / 1100 500 / 500 Balance 2835 / 2835 1460 / 1460 900 / 900 Microbiology Past 72 Hours 02/08/18 10:10 Nasal Screen MRSA/MSSA - Final Swab (Method) Discharge Diet: No Restrictions Discharge Activity: Return to Normal Activity Home Medications: Medications to take at Discharge Inulin/Chromium Picolinate [Fiber Gummies] 1 tab PO DAILY 02/08/18 Ciprofloxacin HCl/Dexameth [Ciprodex Otic Suspension] 4 drop OT BID #1 bottle 02/10/18 Ibuprofen [Motrin] 400 mg PO Q8H PRN tablet 02/10/18 levoFLOXacin tablet [Levaquin tablet] 500 mg PO DAILY@0600 #10 tablet 02/10/18 Following Prescrptions Were Given to Patient: levoFLOXacin tablet [Levaquin tablet] 500 mg PO DAILY@0600 #10 tablet Ciprofloxacin HCl/Dexameth [Ciprodex Otic Suspension] 4 drop OT BID #1 bottle Primary Care Physician: Marlon Luz MD [NON-STAFF] - Please follow up with your Primary Care Physician in: within 1-2 weeks Please Follow Up With: Len Wiley MD When: in 1 week Disposition: Home Minutes spent on discharge:: 40 Patient Condition:: Stable Medical Necessity - Tobacco Use Smoking Status: Current every day smoker Tobacco Use: Cigarettes Meaningful Use Info Meaningful Use Diagnoses (Choose all that apply): None applicable Code Visit Inpatient E&M: 85981 Disch Hosp
--- NOTE | 2018-02-10 09:23 | DCINST_ITS ---
- Discharge Diagnoses Current Active Problems: Current Active and Chronic Problems Otitis media (Acute) Mastoiditis (Acute) Reason(s) for Visit for Discharge Instructions: Right ear pain You will use the following diet at home:: Regular Your food should be the consistency of: Regular Your liquids should be the consistency of: Regular/Thin Discharge Activity: Return to Normal Activity Additional Instructions: Complete your antibiotics. Follow-up with ENT within 2 weeks Allergies/Adverse Reactions: Allergies hydromorphone HCl [From Dilaudid] Allergy (Severe, Verified 02/08/18 00:35) Anaphylaxis aspirin [From Percodan] Allergy (Intermediate, Verified 02/08/18 00:35) Swelling oxycodone terephthalate [From Percodan] Allergy (Intermediate, Verified 02/08/18 00:35) Swelling amoxicillin Allergy (Verified 02/08/18 00:35) Hives azithromycin Allergy (Verified 02/08/18 00:35) Other erythromycin base Allergy (Verified 02/08/18 00:35) Hives oxycodone HCl [From Percocet] Allergy (Verified 02/08/18 00:35) Anaphylaxis propoxyphene napsylate [From Darvocet-N] Allergy (Verified 02/08/18 00:35) Other Sulfa (Sulfonamide Antibiotics) Allergy (Verified 02/08/18 00:35) Other tramadol Allergy (Verified 02/08/18 00:35) Hives gabapentin Adverse Reaction (Verified 02/08/18 00:35) Other Medications to take at Discharge Inulin/Chromium Picolinate [Fiber Gummies] 1 tab PO DAILY 02/08/18 Ciprofloxacin HCl/Dexameth [Ciprodex Otic Suspension] 4 drop OT BID #1 bottle 02/10/18 Ibuprofen [Motrin] 400 mg PO Q8H PRN tablet 02/10/18 levoFLOXacin tablet [Levaquin tablet] 500 mg PO DAILY@0600 #10 tablet 02/10/18 The following prescriptions were given: levoFLOXacin tablet [Levaquin tablet] 500 mg PO DAILY@0600 #10 tablet Ciprofloxacin HCl/Dexameth [Ciprodex Otic Suspension] 4 drop OT BID #1 bottle Primary Care Physician: Marlon Luz MD [NON-STAFF] - Please follow up with your Primary Care Physician in: within 1-2 weeks Test Results: Test results from this visit will be discussed in further detail at your follow- up appointment, if applicable. Please Follow Up With: Len Wiley MD When: in 1 week Proposed Discharge Date: 02/10/18
[2018-02-10 09:26] VITALS: BP 129/69; PULSE 73; RESP 18; TEMP 36.8; O2SAT 98
[2018-02-10] MEDS: Enoxaparin 40 MG/0.4 ML Syringe SC (09:31)
[2018-02-10] MEDS: CIPROFLOXACIN HCL/DEXAMETH 7.5 ML DROPS.SUSP OT (09:31)
--- NOTE | 2018-02-10 10:20 | PCM.PN.ID ---
Patient Problems: Active and Suspected Problems Otitis media (Acute) Mastoiditis (Acute) Subjective: Feeling much better, no fever, ear less sore, no nausea with abx.. - Physical Exam General: Alert, Cooperative, No apparent distress Lungs: Clear to auscultation, Normal air movement Cardiovascular: Regular rate, Regular Rhythm Abdomen: Soft, Non Tender, Non-Distended Skin: No rashes Vital Signs Temp Pulse Resp BP Pulse Ox 98.3 F 73 18 129/69 H 98 02/10/18 09:26 02/10/18 09:26 02/10/18 09:26 02/10/18 09:26 02/10/18 09:26 Oxygen Delivery Method Room Air Weight: 74.191 kg Body Mass Index (BMI) 28.7 Intake and Output for Last 24 Hours 02/08/18 02/09/18 02/10/18 23:59 23:59 23:59 Intake Total 3935 / 3935 1960 / 1960 900 / 900 Output Total 1100 / 1100 500 / 500 Balance 2835 / 2835 1460 / 1460 900 / 900 Microbiology Past 72 Hours 02/08/18 10:10 Nasal Screen MRSA/MSSA - Final Swab (Method) Medical Necessity - Tobacco Use Smoking Status: Current every day smoker Tobacco Use: Cigarettes Route of nutrition/ use of supplements: [] Nutritional Intake: [] IV Site: [] [place] Catheter: [] - Assessment/Plan Antibiotics: [] Assessment/Plan: [] Active and Suspected Problems Otitis media (Acute) Mastoiditis (Acute) R ear acute mastoiditis - Cont po levaquin, plan on 10 more days of abx at discharge. Sx improving Will follow, ID followup prn.
--- NOTE | 2018-02-11 13:49 | CASEMGMT ---
RN CM Discharge Phone Call. DC DATE:02/10/18 DC Disposition: Home [facility] 3 Call details: Intro role of CM to patient via phone. Pt states she does not have questions re: dc instructions, f/u or prescriptions. Pt is self pay, but knows she can go to [facility] or [facility] if needed. Pt has PCP, but has not seen in two years. She states she will be re-applying for medicaid then will see her PCP. Denies any further needs @ this time.
== END 2018-02-10 11:11 | disposition home or self-care (01) | DRG 153 ==
LOC: ED 21:30 → MS3 02-08
PROVIDERS: Admitting Provider Hospitalist; Emergency Provider Emergency Medicine; Visit Provider Internal Medicine
DX: H70.001 Acute mastoiditis without complications, right ear (principal); H66.91 Otitis media, unspecified, right ear; F17.210 Nicotine dependence, cigarettes, uncomplicated; H60.91 Unspecified otitis externa, right ear; Z23 Encounter for immunization
CPT/HCPCS: 36415; 70110; 70480; 80048; 85025; 87081; 99285; 99406; J7040; J7050; 90686; A4216; J2405

== ENCOUNTER 2018-03-24 15:59 | Observation (INO) | payer MEDICAID, SELFPAY ==
[2018-03-24 16:00] VITALS: BP 105/69; PULSE 92; RESP 16; TEMP 35.5; O2SAT 100; BMI 26.0
--- NOTE | 2018-03-24 16:11 | CT_ITS ---
STUDY: CT ABDOMEN AND PELVIS WITH CONTRAST REASON FOR EXAM: Female, 37 years old. Abdominal pain. RADIATION DOSAGE (If Supplied By Facility): CTDIvol = ( 15.34 ) mGy, DLP = ( 968.02 ) mGycm TECHNIQUE: Transaxial images were obtained from the dome of the diaphragm to the symphysis pubis without oral contrast. 100ml ml of Isovue 300 contrast was administered. Sagittal and coronal images were reconstructed. Individualized dose optimization techniques were used for this CT. COMPARISON: October 02, 2016 FINDINGS: The visualized lung bases are unremarkable. The visualized portions of the heart are within normal limits. Normal liver. There are surgical clips in the gallbladder fossa consistent with a prior cholecystectomy. Normal spleen. Normal pancreas. Normal bilateral adrenal glands. Normal right kidney. Normal left kidney. There is bilateral hydroureter, more pronounced on the right. Normal visualized stomach. Normal small intestine. There are foci of circumferential wall thickening throughout the colon which is incompletely distended. The appendix is surgically absent. Normal abdominal aorta. Normal inferior vena cava. Normal retroperitoneum. Normal urinary bladder. There are postsurgical changes along the abdominal wall. Normal osseous structures. CT/Abdomen/Pelvis WITH Contrast IMPRESSION: Foci of circumferential wall thickening throughout the colon which may be secondary to its incompletely distended state however cannot exclude underlying colitis. Bilateral hydroureter, more pronounced on the right, uncertain etiology may be related to peristalsis. Electronically Signed: Lashay De La Cruz MD at 18:55 EST Tel , Service support ,
[2018-03-24 16:37] LABS: Bacteria 0 SEEN /hpf (None Seen); Mucous, Urine 0 SEEN /hpf (<or=2+); Red Blood Cells-Urine 0 SEEN /hpf (0-5); White Blood Cells 0 SEEN /hpf (0-5)
[2018-03-24] MEDS: 0.9% Normal Saline 1,000 ML 1000 ML IV (16:39)
[2018-03-24] MEDS: proMETHazine 25 MG/ML Syringe 6.25 MG IV (16:39)
[2018-03-24] MEDS: Morphine 4 MG/ML Syringe IV ×2 (16:39→18:43)
[2018-03-24 16:53] LABS: Color, Urine Yellow (Yellow); Glucose, Dipstick Normal (Normal); Ketone-Dipstick Negative (Negative); Leukocyte Esterase-Dipstick Negative /ul (Negative); Nitrite-Dipstick Negative (Negative); Occult Blood-Urine Negative /ul (Negative); Protein-Dipstick Negative (Negative); Specific Gravity, Urine 1.015 (1.002-1.030); Urine Bilirubin Dipstick Negative (Negative); Urine Clarity Sl. Cloudy (Clear); Urine Urobilinogen Normal (Normal)
[2018-03-24 17:00] LABS: Absolute Lymphocyte Count 2.54 X10^3/ul (0.83-4.51); Absolute Neutrophil Count 3.4 X10^3/uL (2.0-7.7); Basophil# 0.05 X10^3/uL; Basophil% 0.8 % (0-1); Hematocrit 40.4 % (37-47); Lymphocyte # 2.54 X10^3/ul (4.0); Lymphocyte % 38.3 % (19-41); Mean Corp Hgb Conc 32.2 g/gl (32-36); Mean Corpuscular Hgb 28.8 pg (27.0-32.0); Mean Corpuscular Volume 89.4 fL (81-99); Mean Platelet Vol. 10.2 fl (6.2-12.0); Monocyte# 0.44 X10^3/uL; Monocyte% 6.6 % (0-10); Neutrophil # 3.39 X10^3/uL (2.7-7.7); Neutrophil % 51.1 % (47-70); POSITIVE COUNT NO; POSITIVE DIFFERENTIAL NO; POSITIVE MORPHOLOGY NO; Platelet Count 202 K/mm3 (150-450); RBC Distribution Width CV 13.7 % (11.6-14.6); RBC Distribution Width SD 44.9 fl (35.1-43.9); Red Blood Count 4.52 M/mm3 (4.2-5.4); White Blood Count 6.6 K/mm3 (4.4-11.0)
[2018-03-24 17:01] LABS: Squamous Epithelial Cells - UA 0-5 SEEN /hpf (5-10)
[2018-03-24 17:17] LABS: Lactic Acid 0.5 mmol/L (0.4-2.0)
[2018-03-24 17:24] LABS: Anion Gap 7 (5-15); BUN 13 mg/dL (7-18); Calcium,Total 9.3 mg/dL (8.5-10.1); Chloride 110 mmol/L (98-107); Creatinine, Serum 0.76 mg/dL (0.55-1.02); EST Glomerular Filtration Rate 90 mL/min (>60); Est Glom Filt Rate - Afr Amer 109 mL/min (>60); Estimated Creatinine Clearance 83.02 ml/min; Glucose 82 mg/dL (74-106); Lipase 84 U/L (73-393); Potassium 4.4 mmol/L (3.5-5.1); Sodium Level 144 mmol/L (136-145)
[2018-03-24 18:15] VITALS: RESP 16
[2018-03-24 18:45] VITALS: BP 95/73; PULSE 57; RESP 16; O2SAT 99
--- NOTE | 2018-03-24 19:12 | ED.VISSUMM ---
- ER Visit Summary Date of Service: 03/24/18 Chief Complaint: [Abdominal pain] History of Present Illness: The patient is a 37 F [presents the emergency department complaint of abdominal pain that started this morning. Patient rates the pain currently as a 10 out of 10. She denies any nausea or vomiting with it. Patient states that she woke up with the pain but got worse throughout the day. Patient had similar pain multiple times in the past because she states she has been dealing with this pain for years off and on. Patient has had a history of small bowel obstructions requiring surgery. Patient's had multiple abdominal surgeries and states that last time she will get her care down in [place] because nobody appear once to touch her. Patient has had prior appendectomy, cholecystectomy, hysterectomy, tubal ligation. Patient denies any fevers. She denies urinary symptoms.] Physical Examination: [HEENT-PERRLA, EOMI. Cranial nerves II through XII grossly intact. TMs clear. Mucous membranes moist. No adenopathy. Cardiovascular-regular rate and rhythm without murmur or ectopy Lungs-clear to auscultation, chest wall stable without crepitus or subcu emphysema Abdomen-normoactive bowel sounds, soft. Patient has diffuse tenderness to palpation with some guarding. There is no rebound, rigidity, or perineal signs. Extremities-intact ?4, normal range of motion, normal pulses, atraumatic] Test Results: [CBC with differential obtained was normal. Chemistries were normal. LFTs were normal. Lipase was 84. Urinalysis was normal. CT scan of the abdomen pelvis with IV and p.o. contrast ordered showed some foci of circumferential wall thickening of the colon which could represent colitis versus incompletely distended colon. Patient also had bilateral hydroureters of uncertain etiology has no obstructing ureteral stones noted.] Emergency Department Course and Treatment: [Patient was medicated with morphine and Zofran. Patient initially had some pain relief however she required a second dose of morphine. Patient continues to complain of pain.] Treatment Plan: [Admit for IV fluids and pain control] Disposition: [Admit] Impression: [Abdominal pain-etiology uncertain Intractable pain] This note was generated with [employer].ation software. It may contain incorrect words, spelling, and punctuation that were not noted in review of the chart prior to signing ED Disposition - Plan for ED Patient: Chief Complaint: Abd Pain Referrals: Care Physician,No Primary [Primary Care Provider] -
--- NOTE | 2018-03-24 19:13 | PCM.HP.STD ---
Problem List (1) Acute colitis Status: Acute (2) Ileus Status: Inactive (3) Mastoiditis Status: Inactive (4) Otitis media Status: Inactive (5) History of multiple abdominal surgeries Status: Chronic History of Present Illness Date of Admission: 03/24/18 Chief Complaint: abdominal pain The patient is a 37 year old F with a significant history of hyperlipidemia; tobacco abuse. borderline diabetes; anemia; bipolar disorder; multiple bowel obstructions with multiple abdominal surgery; hysterectomy; appendectomy; cholecystectomy who presented with 1 day history of progressively worsening abdominal pain with left-side worse than right-side. Pain is nonradiating. Pain increases with moving. It is ameliorated when she stays still. Patient denies any nausea or vomiting. Patient reports normal bowel pattern. Typically her bowels move once a week. However in the last week her bowels has moved 3 times. Her last bowel movement was on the same day of presentation. CT of abdomen and pelvis showed circumferential wall thickening throughout the colon which may be secondary to its incompletely distended state however cannot exclude underlying colitis. Also there was bilateral hydroureter more pronounced on the right with uncertain etiology but attributed to likely peristalsis. Past Medical History Past Medical History (Chronic Problems): Chronic Problems History of small bowel obstruction (Chronic) History of multiple abdominal surgeries (Chronic) Allergies hydromorphone HCl [From Dilaudid] Allergy (Severe, Verified 02/08/18 00:35) Anaphylaxis aspirin [From Percodan] Allergy (Intermediate, Verified 02/08/18 00:35) Swelling oxycodone terephthalate [From Percodan] Allergy (Intermediate, Verified 02/08/18 00:35) Swelling amoxicillin Allergy (Verified 02/08/18 00:35) Hives azithromycin Allergy (Verified 02/08/18 00:35) Other erythromycin base Allergy (Verified 02/08/18 00:35) Hives oxycodone HCl [From Percocet] Allergy (Verified 02/08/18 00:35) Anaphylaxis propoxyphene napsylate [From Darvocet-N] Allergy (Verified 02/08/18 00:35) Other Sulfa (Sulfonamide Antibiotics) Allergy (Verified 02/08/18 00:35) Other tramadol Allergy (Verified 02/08/18 00:35) Hives gabapentin Adverse Reaction (Verified 02/08/18 00:35) Other Home Medications: Ambulatory Orders Medication Instructions Recorded NK 03/24/18 Surgical History: appendectomy, cholecystectomy, hysterectomy, - - Small bowel reconstruction Psychiatric History: Bipolar Lives: With Family Smoking Status: Current every day smoker Tobacco Use: Cigarettes - *Family History Paternal History Items: Cancer, Diabetes, - - luekemia, strokes. Maternal History Items: Cancer Review of Systems Constitutional: Denies: Chills, Fever, Weight Change HEENT: Denies: Head Aches, Sinus Congestion, Sinus Drainage Cardiovascular: Denies: Chest Pain, Palpitations Respiratory: Denies: Cough, Shortness of breath at rest, Sputum production Gastrointestinal: Reports: Abdominal Pain. Denies: Nausea, Vomiting Genitourinary: Denies: Dysuria Musculoskeletal: Denies: Joint Pain, Joint Tenderness Skin: Denies: Rash, Wounds Neurological: Denies: Numbness, Tingling, Focal weakness Psychiatric: Denies: Anxiety, Depression, Homicidal Ideations, Suicidal Ideations Hematologic/ Lymphatic: Denies: Easy Bruising, Easy Bleeding VTE Information - Inpt Only VTE Present on Admission: No VTE Mechan Device Prophylaxis: None VTE Pharm Prophylaxis ordered?: Yes Patient Problems: Active and Suspected Problems Acute colitis (Acute) - Physical Exam General: Alert, Oriented x3, Cooperative HEENT: Atraumatic, PERRLA, EOMI, Normocephalic Neck: Supple, No JVD, Negative Carotid Bruits Lungs: Clear to auscultation, Normal air movement Cardiovascular: Regular rate, No murmurs Abdomen: Bowel Sounds Present - Hypoactive, Soft, Tender Extremities: No edema, Capillary Refill Less than 3 Seconds Skin: No rashes, No breakdown Musculoskeletal: No Tenderness to Palpation of Joints or Extremities Neurological: Cranial nerves II-XII grossly intact Psych/Mental Status: Normal Affect, Appropriate Vital Signs Temp Pulse Resp BP Pulse Ox 95.9 F L 57 L 16 95/73 99 03/24/18 16:00 03/24/18 18:45 03/24/18 18:45 03/24/18 18:45 03/24/18 18:45 Oxygen Delivery Method Room Air Weight: 66.678 kg Body Mass Index (BMI) 26.0 Laboratory Tests Past 24 Hrs 03/24/18 03/24/18 03/24/18 16:30 16:39 16:39 WBC 6.6 RBC 4.52 Hgb 13.0 Hct 40.4 MCV 89.4 MCH 28.8 MCHC 32.2 RDW 13.7 RDW Differential 44.9 H Plt Count 202 MPV 10.2 Immature Gran % (Auto) 0.200 Neut % (Auto) 51.1 Lymph % (Auto) 38.3 [place] % (Auto) 6.6 Eos % (Auto) 3.0 Baso % (Auto) 0.8 Absolute Neuts (auto) 3.4 Absolute Lymphs (auto) 2.54 Total Counted Not Reportable Sodium 144 Potassium 4.4 Chloride 110 H Carbon Dioxide 27.0 Anion Gap 7 BUN 13 Creatinine 0.76 Estim Creat Clear Calc 83.02 Est GFR (MDRD) Af Amer 109 Est GFR (MDRD) Non-Af 90 BUN/Creatinine Ratio 17.0 Glucose 82 Lactic Acid Calcium 9.3 Lipase 84 Urine Color Yellow Urine Clarity Sl. Cloudy Urine pH 6.0 Ur Specific [place] 1.015 Urine Protein Negative Urine Glucose (UA) Normal Urine Ketones Negative Urine Occult Blood Negative Urine Nitrite Negative Urine Bilirubin Negative Urine Urobilinogen Normal Ur Leukocyte Esterase Negative Urine RBC 0 SEEN Urine WBC 0 SEEN Ur Squamous Epith Cells 0-5 SEEN Urine Bacteria 0 SEEN Urine Mucus 0 SEEN 03/24/18 16:39 WBC RBC Hgb Hct MCV MCH MCHC RDW RDW Differential Plt Count MPV Immature Gran % (Auto) Neut % (Auto) Lymph % (Auto) [place] % (Auto) Eos % (Auto) Baso % (Auto) Absolute Neuts (auto) Absolute Lymphs (auto) Total Counted Sodium Potassium Chloride Carbon Dioxide Anion Gap BUN Creatinine Estim Creat Clear Calc Est GFR (MDRD) Af Amer Est GFR (MDRD) Non-Af BUN/Creatinine Ratio Glucose Lactic Acid 0.5 Calcium Lipase Urine Color Urine Clarity Urine pH Ur Specific [place] Urine Protein Urine Glucose (UA) Urine Ketones Urine Occult Blood Urine Nitrite Urine Bilirubin Urine Urobilinogen Ur Leukocyte Esterase Urine RBC Urine WBC Ur Squamous Epith Cells Urine Bacteria Urine Mucus Assessment/Plan All Active Problems Acute colitis (Acute) Obesity (BMI 30-39.9) (Acute) The patient is a 37 year old F with a significant history of hyperlipidemia; tobacco abuse. borderline diabetes; anemia; bipolar disorder; multiple bowel obstructions with multiple abdominal surgery; hysterectomy; appendectomy; cholecystectomy who presented with 1 day history of progressively worsening abdominal pain with left-sided more than right-sided with radiographic evidence of circumferential wall thickening without exclusion of colitis; and bilateral hydro-ureter. Intractable abdominal pain Probable acute colitis We will treat patient for infectious colitis with conservative management of IV antibiotics; Flagyl and Cipro. Supportive treatment with IV fluids and IV morphine. As needed Zofran ordered. We will follow CBC and BMP. Bilateral Hydroureter With etiology unclear at this point; likely secondary to reduced peristalsis per radiologist impression. Will treat abdominal pain as above Borderline diabetes On admission glucose on BMP was within goal. Trend BMP. Tobacco abuse Counseled Declined nicotine patch. DVT prophylaxis Subcutaneous Lovenox. Code Visit OBSV E&M: 18600 Initial observation care L3
--- NOTE | 2018-03-24 19:15 | ED.DCSUM_ITS ---
- ER Visit Summary Date of Service: 03/24/18 Chief Complaint: [Abdominal pain] History of Present Illness: The patient is a 37 F [presents the emergency department complaint of abdominal pain that started this morning. Patient rates the pain currently as a 10 out of 10. She denies any nausea or vomiting with it. Patient states that she woke up with the pain but got worse throughout the day. Patient had similar pain multiple times in the past because she states she has been dealing with this pain for years off and on. Patient has had a history of small bowel obstructions requiring surgery. Patient's had multiple abdominal surgeries and states that last time she will get her care down in [place] because nobody appear once to touch her. Patient has had prior appendectomy, cholecystectomy, hysterectomy, tubal ligation. Patient denies any fevers. She denies urinary symptoms.] Physical Examination: [HEENT-PERRLA, EOMI. Cranial nerves II through XII grossly intact. TMs clear. Mucous membranes moist. No adenopathy. Cardiovascular-regular rate and rhythm without murmur or ectopy Lungs-clear to auscultation, chest wall stable without crepitus or subcu emphysema Abdomen-normoactive bowel sounds, soft. Patient has diffuse tenderness to palpation with some guarding. There is no rebound, rigidity, or perineal signs. Extremities-intact ?4, normal range of motion, normal pulses, atraumatic] Test Results: [CBC with differential obtained was normal. Chemistries were normal. LFTs were normal. Lipase was 84. Urinalysis was normal. CT scan of the abdomen pelvis with IV and p.o. contrast ordered showed some foci of circumferential wall thickening of the colon which could represent colitis versus incompletely distended colon. Patient also had bilateral hydroureters of uncertain etiology has no obstructing ureteral stones noted.] Emergency Department Course and Treatment: [Patient was medicated with morphine and Zofran. Patient initially had some pain relief however she required a se cond dose of morphine. Patient continues to complain of pain.] Treatment Plan: [Admit for IV fluids and pain control] Disposition: [Admit] Impression: [Abdominal pain-etiology uncertain Intractable pain] This note was generated with [employer] software. It may contain incorrect words, spelling, and punctuation that were not noted in review of the chart prior to signing ED Disposition - Plan for ED Patient: Chief Complaint: Abd Pain Referrals: Care Physician,No Primary [Primary Care Provider] -
[2018-03-24 20:09] VITALS: BMI 26.0
[2018-03-24 20:21] VITALS: BMI 28.5
[2018-03-24 20:30] VITALS: BP 99/65; PULSE 91; RESP 18; TEMP 36.6; O2SAT 97
[2018-03-24] MEDS: Ciprofloxacin 400 MG/200 ML BAG 200 MG IV (22:21)
[2018-03-24] MEDS: 0.9% Normal Saline 1,000 ML 75 ML IV (22:21)
[2018-03-24 22:51] VITALS: O2SAT 97
[2018-03-24] MEDS: 0.9% NaCl Peripheral Flush Adult/Peds IV (23:47)
[2018-03-25] MEDS: Morphine 2 MG/ML Syringe IV ×3 (01:14→22:14)
[2018-03-25 02:40] VITALS: BP 102/52; PULSE 96; RESP 18; TEMP 36.8; O2SAT 93
[2018-03-25 06:49] LABS: Absolute Lymphocyte Count 2.14 X10^3/ul (0.83-4.51); Absolute Neutrophil Count 2.5 X10^3/uL (2.0-7.7); Basophil# 0.03 X10^3/uL; Basophil% 0.6 % (0-1); Eosinophil# 0.19 X10^3/uL; Eosinophils% 3.6 % (0-5); Hematocrit 36.7 % (37-47); Hemoglobin 11.5 g/dl (12.0-15.0); Lymphocyte # 2.14 X10^3/ul (4.0); Lymphocyte % 40.5 % (19-41); Mean Corp Hgb Conc 31.3 g/gl (32-36); Mean Corpuscular Hgb 28.6 pg (27.0-32.0); Mean Corpuscular Volume 91.3 fL (81-99); Mean Platelet Vol. 9.9 fl (6.2-12.0); Monocyte# 0.43 X10^3/uL; Monocyte% 8.1 % (0-10); Neutrophil % 47.2 % (47-70); Platelet Count 159 K/mm3 (150-450); RBC Distribution Width CV 13.8 % (11.6-14.6); RBC Distribution Width SD 45.9 fl (35.1-43.9); Red Blood Count 4.02 M/mm3 (4.2-5.4); White Blood Count 5.3 K/mm3 (4.4-11.0)
[2018-03-25 06:50] LABS: POSITIVE COUNT NO; POSITIVE DIFFERENTIAL NO; POSITIVE MORPHOLOGY NO
[2018-03-25 06:54] LABS: Anion Gap 5 (5-15); BUN 11 mg/dL (7-18); BUN/Creat Ratio 16.4 RATIO (10-20); Calcium,Total 8.2 mg/dL (8.5-10.1); Chloride 113 mmol/L (98-107); Creatinine, Serum 0.67 mg/dL (0.55-1.02); EST Glomerular Filtration Rate 104 mL/min (>60); Est Glom Filt Rate - Afr Amer 126 mL/min (>60); Estimated Creatinine Clearance 94.18 ml/min; Glucose 109 mg/dL (74-106); Potassium 3.4 mmol/L (3.5-5.1); Sodium Level 145 mmol/L (136-145)
[2018-03-25 07:48] VITALS: O2SAT 91
--- NOTE | 2018-03-25 10:30 | PCM.PN.HOSP ---
Patient Problems: Active and Suspected Problems Acute colitis (Acute) Hydroureter (Acute) Subjective: still with 9/10 abdominal pain, but was able to eat a [employer] sandwich. No vomiting. Has had similar symptoms with previous bowel obstructions. Vitals/I&O's: Vital Signs Temp Pulse Resp BP Pulse Ox 36.8 C 96 18 102/52 L 91 03/25/18 02:40 03/25/18 02:40 03/25/18 02:40 03/25/18 02:40 03/25/18 07:48 Oxygen Delivery Method Room Air Weight: 73.255 kg Body Mass Index (BMI) 28.5 Intake and Output for Last 24 Hours 03/23/18 03/24/18 03/25/18 23:59 23:59 23:59 Intake Total 1025 / 1025 716 / 716 Output Total 600 / 600 200 / 200 Balance 425 / 425 516 / 516 General: Alert, Cooperative, No apparent distress, - - appears older than stated age. afebrile. non-toxic. HEENT: Atraumatic, Normocephalic Oral: Moist Mucosa, No Gingival or Mucosal Lesions/ Ulcerations Neck: No Nodes, Thyroid Normal Size and Texture Lungs: Clear to auscultation, Normal air movement, No rhonchi, No wheeze Cardiovascular: Regular rate, Regular Rhythm, Normal S1, Normal S2, No murmurs Abdomen: Bowel Sounds Present, Soft, Non-Distended, No Hepato-splenomegaly, Hypoactive Bowel Sounds, - - pain out of proportion to exam. Extremities: No edema, No Calf Tenderness Skin: No rashes, No breakdown Psych/Mental Status: Normal Affect, Appropriate Laboratory Results 03/24/18 16:30: Urine Color Yellow, Urine Clarity Sl. Cloudy, Urine pH 6.0, Ur Specific [place] 1.015, Urine Protein Negative, Urine Glucose (UA) Normal, Urine Ketones Negative, Urine Occult Blood Negative, Urine Nitrite Negative, Urine Bilirubin Negative, Urine Urobilinogen Normal, Ur Leukocyte Esterase Negative, Urine RBC 0 SEEN, Urine WBC 0 SEEN, Ur Squamous Epith Cells 0-5 SEEN, Urine Bacteria 0 SEEN, Urine Mucus 0 SEEN 03/24/18 16:39: WBC 6.6, RBC 4.52, Hgb 13.0, Hct 40.4, MCV 89.4, MCH 28.8, MCHC 32.2, RDW 13.7, RDW Differential 44.9 H, Plt Count 202, MPV 10.2, Immature Gran % (Auto) 0.200, Neut % (Auto) 51.1, Lymph % (Auto) 38.3, [place] % (Auto) 6.6, Eos % (Auto) 3.0, Baso % (Auto) 0.8, Absolute Neuts (auto) 3.4, Absolute Lymphs (auto) 2.54, Total Counted Not Reportable 03/24/18 16:39: Sodium 144, Potassium 4.4, Chloride 110 H, Carbon Dioxide 27.0, Anion Gap 7, BUN 13, Creatinine 0.76, Estim Creat Clear Calc 83.02, Est GFR (MDRD) Af Amer 109, Est GFR (MDRD) Non-Af 90, BUN/Creatinine Ratio 17.0, Glucose 82, Calcium 9.3, Lipase 84 03/24/18 16:39: Lactic Acid 0.5 03/25/18 06:18: WBC 5.3, RBC 4.02 L, Hgb 11.5 L, Hct 36.7 L, MCV 91.3, MCH 28.6, MCHC 31.3 L, RDW 13.8, RDW Differential 45.9 H, Plt Count 159, MPV 9.9, Immature Gran % (Auto) 0.000, Neut % (Auto) 47.2, Lymph % (Auto) 40.5, [place] % (Auto) 8.1, Eos % (Auto) 3.6, Baso % (Auto) 0.6, Absolute Neuts (auto) 2.5, Absolute Lymphs (auto) 2.14, Total Counted Not Reportable 03/25/18 06:18: Sodium 145, Potassium 3.4 L, Chloride 113 H, Carbon Dioxide 27.0, Anion Gap 5, BUN 11, Creatinine 0.67, Estim Creat Clear Calc 94.18, Est GFR (MDRD) Af Amer 126, Est GFR (MDRD) Non-Af 104, BUN/Creatinine Ratio 16.4, Glucose 109 H, Calcium 8.2 L Current Medications Enoxaparin Sodium (Lovenox) 40 mg SC DAILY@1000 EMETERIO Sodium Chloride () 1,000 mls @ 75 mls/hr IV .[id number] EMETERIO Stop: 03/25/18 11:15 Last Admin: 03/24/18 22:21 Dose: 75 mls/hr Ciprofloxacin (Cipro) 400 mg in 200 mls @ 200 mls/hr IV Q12 [facility] Last Admin: 03/24/18 22:21 Dose: 200 mls/hr Metronidazole (Flagyl) 500 mg in 100 mls @ 100 mls/hr IV Q8 [facility] Last Admin: 03/25/18 06:22 Dose: 100 mls/hr Magnesium Hydroxide (Milk Of Magnesia) 30 ml PO DAILY PRN PRN PRN Reason: Constipation Morphine Sulfate () 1 - 2 mg IV Q4H PRN PRN PRN Reason: PAIN Last Admin: 03/25/18 01:14 Dose: 2 mg Nutritional Formula (Lactose Free) (Ensure Enlive) 120 ml PO 4X/DAY [facility] Ondansetron HCl (Zofran) 4 mg IV Q6H PRN PRN PRN Reason: NAUSEA/VOMITING Sodium Chloride () 5 - 15 ml IV UD PRN PRN Reason: SALINE FLUSH Last Admin: 03/24/18 23:47 Dose: 10 ml Medical Necessity - Tobacco Use Smoking Status: Current every day smoker Tobacco Use: Cigarettes Assessment/Plan All Active Problems Acute colitis (Acute) Hydroureter (Acute) 1. acute colitis possible v incompletely distended state on empiric abx pain out of proportion to exam check stool studies check abdominal xray since her symptoms are similar to her prior SBOs despite patient's severe abdominal pain (9-10/10) she can eat a [employer] sandwich with no problems. did review patient's OARRS, no controlled substance prescribed (in [place]) in the past 12 months. 2. Hydroureter no hydronephrosis on CT check US UA unremarkable. 3. DVT proph: LMWH. Code Visit Inpatient E&M: 73853 Subs Hosp L2
[2018-03-25] MEDS: Ciprofloxacin 400 MG/200 ML BAG 200 MG IV ×2 (10:36→23:41)
--- NOTE | 2018-03-25 10:36 | PN_ITS ---
Patient Problems: Active and Suspected Problems Acute colitis (Acute) Hydroureter (Acute) Subjective: still with 9/10 abdominal pain, but was able to eat a [employer] sandwich. No vomiting. Has had similar symptoms with previous bowel obstructions. Vitals/I&O's: Vital Signs Temp Pulse Resp BP Pulse Ox 36.8 C 96 18 102/52 L 91 03/25/18 02:40 03/25/18 02:40 03/25/18 02:40 03/25/18 02:40 03/25/18 07:48 Oxygen Delivery Method Room Air Weight: 73.255 kg Body Mass Index (BMI) 28.5 Intake and Output for Last 24 Hours 03/23/18 03/24/18 03/25/18 23:59 23:59 23:59 Intake Total 1025 / 1025 716 / 716 Output Total 600 / 600 200 / 200 Balance 425 / 425 516 / 516 General: Alert, Cooperative, No apparent distress, - - appears older than stated age. afebrile. non-toxic. HEENT: Atraumatic, Normocephalic Oral: Moist Mucosa, No Gingival or Mucosal Lesions/ Ulcerations Neck: No Nodes, Thyroid Normal Size and Texture Lungs: Clear to auscultation, Normal air movement, No rhonchi, No wheeze Cardiovascular: Regular rate, Regular Rhythm, Normal S1, Normal S2, No murmurs Abdomen: Bowel Sounds Present, Soft, Non-Distended, No Hepato-splenomegaly, Hypoactive Bowel Sounds, - - pain out of proportion to exam. Extremities: No edema, No Calf Tenderness Skin: No rashes, No breakdown Psych/Mental Status: Normal Affect, Appropriate Laboratory Results 03/24/18 16:30: Urine Color Yellow, Urine Clarity Sl. Cloudy, Urine pH 6.0, Ur Specific [place] 1.015, Urine Protein Negative, Urine Glucose (UA) Normal, Urine Ketones Negative, Urine Occult Blood Negative, Urine Nitrite Negative, Urine Bilirubin Negative, Urine Urobilinogen Normal, Ur Leukocyte Esterase Negative, Urine RBC 0 SEEN, Urine WBC 0 SEEN, Ur Squamous Epith Cells 0-5 SEEN, Urine Bacteria 0 SEEN, Urine Mucus 0 SEEN 03/24/18 16:39: WBC 6.6, RBC 4.52, Hgb 13.0, Hct 40.4, MCV 89.4, MCH 28.8, MCHC 32.2, RDW 13.7, RDW Differential 44.9 H, Plt Count 202, MPV 10.2, Immature Gran % (Auto) 0.200, Neut % (Auto) 51.1, Lymph % (Auto) 38.3, [place] % (Auto) 6.6, Eos % (Auto) 3.0, Baso % (Auto) 0.8, Absolute Neuts (auto) 3.4, Absolute Lymphs (auto) 2.54, Total Counted Not Reportable 03/24/18 16:39: Sodium 144, Potassium 4.4, Chloride 110 H, Carbon Dioxide 27.0, Anion Gap 7, BUN 13, Creatinine 0.76, Estim Creat Clear Calc 83.02, Est GFR (MDRD) Af Amer 109, Est GFR (MDRD) Non-Af 90, BUN/Creatinine Ratio 17.0, Glucose 82, Calcium 9.3, Lipase 84 03/24/18 16:39: Lactic Acid 0.5 03/25/18 06:18: WBC 5.3, RBC 4.02 L, Hgb 11.5 L, Hct 36.7 L, MCV 91.3, MCH 28.6, MCHC 31.3 L, RDW 13.8, RDW Differential 45.9 H, Plt Count 159, MPV 9.9, Immature Gran % (Auto) 0.000, Neut % (Auto) 47.2, Lymph % (Auto) 40.5, [place] % (Auto) 8.1, Eos % (Auto) 3.6, Baso % (Auto) 0.6, Absolute Neuts (auto) 2.5, Absolute Lymphs (auto) 2.14, Total Counted Not Reportable 03/25/18 06:18: Sodium 145, Potassium 3.4 L, Chloride 113 H, Carbon Dioxide 27.0, Anion Gap 5, BUN 11, Creatinine 0.67, Estim Creat Clear Calc 94.18, Est GFR (MDRD) Af Amer 126, Est GFR (MDRD) Non-Af 104, BUN/Creatinine Ratio 16.4, Glucose 109 H, Calcium 8.2 L Current Medications Enoxaparin Sodium (Lovenox) 40 mg SC DAILY@1000 EMETERIO Sodium Chloride () 1,000 mls @ 75 mls/hr IV .[id number] EMETERIO Stop: 03/25/18 11:15 Last Admin: 03/24/18 22:21 Dose: 75 mls/hr Ciprofloxacin (Cipro) 400 mg in 200 mls @ 200 mls/hr IV Q12 [facility] Last Admin: 03/24/18 22:21 Dose: 200 mls/hr Metronidazole (Flagyl) 500 mg in 100 mls @ 100 mls/hr IV Q8 [facility] Last Admin: 03/25/18 06:22 Dose: 100 mls/hr Magnesium Hydroxide (Milk Of Magnesia) 30 ml PO DAILY PRN PRN PRN Reason: Constipation Morphine Sulfate () 1 - 2 mg IV Q4H PRN PRN PRN Reason: PAIN Last Admin: 03/25/18 01:14 Dose: 2 mg Nutritional Formula (Lactose Free) (Ensure Enlive) 120 ml PO 4X/DAY [facility] Ondansetron HCl (Zofran) 4 mg IV Q6H PRN PRN PRN Reason: NAUSEA/VOMITING Sodium Chloride () 5 - 15 ml IV UD PRN PRN Reason: SALINE FLUSH Last Admin: 03/24/18 23:47 Dose: 10 ml Medical Necessity - Tobacco Use Smoking Status: Current every day smoker Tobacco Use: Cigarettes Assessment/Plan All Active Problems Acute colitis (Acute) Hydroureter (Acute) 1. acute colitis * possible v incompletely distended state * on empiric abx * pain out of proportion to exam * check stool studies * check abdominal xray since her symptoms are similar to her prior SBOs * despite patient's severe abdominal pain (9-10/10) she can eat a [employer] sandwich with no problems. * did review patient's OARRS, no controlled substance prescribed (in [place]) in the past 12 months. 2. Hydroureter * no hydronephrosis on CT * check US * UA unremarkable. 3. DVT proph: LMWH. Code Visit Inpatient E&M: 27733 Subs Hosp L2
--- NOTE | 2018-03-25 10:37 | RAD_ITS ---
STUDY: X-RAY - ABDOMEN/PELVIS REASON FOR EXAM: Female, 37 years old. Abdominal pain. TECHNIQUE: Two AP supine views of the abdomen and pelvis. COMPARISON: None. FINDINGS: Normal visualized lung bases. There is an abundance of fecal material throughout the colon. The visualized liver, spleen and kidneys are grossly normal in size and morphology. Residual contrast is seen within the bladder from prior CT scan examination. Normal soft tissue structures. Normal visualized osseous structures. RAD/Abdomen Single View IMPRESSION: A large amount of fecal material is seen throughout the colon. Electronically Signed: Kali Luque MD at 15:27 EST Tel [phone], Service support ,
--- NOTE | 2018-03-25 10:37 | US_ITS ---
STUDY: RENAL ULTRASOUND - COMPLETE REASON FOR EXAM: Female, 37 years old. Hydroureter. TECHNIQUE: Ultrasound evaluation of the kidneys was performed with real-time and static bonilla-scale imaging. COMPARISON: None. FINDINGS: RIGHT KIDNEY: Normal location of the right kidney, which is normal in size. The right kidney measures 10.4 cm x 5.7 cm x 3.6 cm. There is a normal cortex of the right kidney. The renal cortex measures 1.2 cm. There is no right renal mass or cyst. There are no right renal calculi. There is no right hydronephrosis. DISTAL RIGHT URETER: There is non-visualization of the distal right ureter. There is no demonstrated right ureterovesical junction calculus. There is no demonstrated right ureteral jet. LEFT KIDNEY: Normal location of the left kidney, which is normal in size. The left kidney measures 10.7 cm x 5.1 cm x 4.0 cm. There is a normal cortex of the left kidney. The renal cortex measures 0.8 cm. There is no left renal mass or cyst. There are no left renal calculi. There is no left hydronephrosis. DISTAL LEFT URETER: There is non-visualization of the distal left ureter. There is no demonstrated left ureterovesical junction calculus. There is no demonstrated left ureteral jet. BLADDER: The bladder is not adequately distended at the time of the examination. US/Kidney and Bladder IMPRESSION: Normal ultrasound of the kidneys. Electronically Signed: Kali Luque MD at 15:47 EST Tel [phone], Service support ,
[2018-03-25 10:39] VITALS: BP 104/52; PULSE 69; RESP 16; TEMP 37; O2SAT 96
[2018-03-25] MEDS: Enoxaparin 40 MG/0.4 ML Syringe SC (10:44)
--- NOTE | 2018-03-25 11:32 | NURSING ---
Arriving back onto floor from Radiology via bed. Requesting pain medication. Will administer.
[2018-03-25] MEDS: 0.9% NaCl Peripheral Flush Adult/Peds IV ×3 (11:51→22:16)
[2018-03-25] MEDS: Bisacodyl 5 MG Tablet PO (17:07)
[2018-03-25] MEDS: Polyethylene Glycol 3350 17 GM PACKET PO (17:08)
[2018-03-25 17:09] VITALS: BP 99/63; PULSE 72; RESP 16; TEMP 36.9; O2SAT 95
[2018-03-25] MEDS: Magnesium Citrate 300 ML 150 ML PO (18:30)
[2018-03-25] MEDS: Ondansetron 4 MG/2 ML Vial IV (19:25)
[2018-03-25 22:07] VITALS: BP 105/62; PULSE 64; RESP 16; TEMP 36.2; O2SAT 97
[2018-03-26 03:54] VITALS: BP 106/70; PULSE 75; RESP 16; TEMP 37.1; O2SAT 94
[2018-03-26] MEDS: 0.9% NaCl Peripheral Flush Adult/Peds IV (07:00)
[2018-03-26] MEDS: Morphine 2 MG/ML Syringe IV (07:00)
[2018-03-26 07:07] VITALS: O2SAT 94
[2018-03-26 07:49] LABS: Absolute Lymphocyte Count 2.06 X10^3/ul (0.83-4.51); Absolute Neutrophil Count 2.8 X10^3/uL (2.0-7.7); Basophil# 0.05 X10^3/uL; Basophil% 0.9 % (0-1); Eosinophil# 0.24 X10^3/uL; Eosinophils% 4.4 % (0-5); Hematocrit 37.4 % (37-47); Hemoglobin 11.8 g/dl (12.0-15.0); Lymphocyte # 2.06 X10^3/ul (4.0); Lymphocyte % 37.8 % (19-41); Mean Corp Hgb Conc 31.6 g/gl (32-36); Mean Corpuscular Hgb 28.9 pg (27.0-32.0); Mean Corpuscular Volume 91.4 fL (81-99); Mean Platelet Vol. 9.8 fl (6.2-12.0); Monocyte# 0.32 X10^3/uL; Monocyte% 5.9 % (0-10); Neutrophil # 2.77 X10^3/uL (2.7-7.7); Neutrophil % 50.8 % (47-70); Platelet Count 186 K/mm3 (150-450); RBC Distribution Width CV 13.7 % (11.6-14.6); RBC Distribution Width SD 45.5 fl (35.1-43.9); Red Blood Count 4.09 M/mm3 (4.2-5.4); White Blood Count 5.5 K/mm3 (4.4-11.0)
[2018-03-26 07:55] LABS: POSITIVE COUNT NO; POSITIVE DIFFERENTIAL NO; POSITIVE MORPHOLOGY NO
[2018-03-26 08:16] LABS: AST(SGOT) 12 U/L (15-37); Alanine Aminotransfer ALT/SGPT 17 U/L (13-56); Albumin, Serum 3.1 g/dL (3.2-5.0); Alkaline Phosphatase 70 U/L (45-117); Anion Gap 6 (5-15); BUN 13 mg/dL (7-18); BUN/Creat Ratio 15.5 RATIO (10-20); Calcium,Total 8.5 mg/dL (8.5-10.1); Chloride 112 mmol/L (98-107); Creatinine, Serum 0.84 mg/dL (0.55-1.02); EST Glomerular Filtration Rate 81 mL/min (>60); Est Glom Filt Rate - Afr Amer 98 mL/min (>60); Estimated Creatinine Clearance 75.12 ml/min; Globulin 3.2 g/dL (2.2-4.2); Glucose 103 mg/dL (74-106); Potassium 4.1 mmol/L (3.5-5.1); Protein, Total 6.3 g/dL (6.4-8.2); Sodium Level 146 mmol/L (136-145)
--- NOTE | 2018-03-26 08:27 | PCM.PROGNOTE ---
Patient Problems: Active and Suspected Problems Hydroureter (Acute) Acute colitis (Acute) Subjective: The patient is a 37-year-old female admitted to the hospital with complaint of severe abdominal pain. CT scan of the abdomen and pelvis showed circumferential wall thickening at several foci in the colon which could be related to colitis or could be due to incompletely distended colon. There was also bilateral hydroureter. Ultrasound of the kidneys was normal. KUB showed a large amount of fecal material throughout the colon. She was able to eat a [employer] sandwich yesterday apparently despite abdominal pain. Afebrile, vital signs stable No bowel movements recorded for yesterday. All lab was personally reviewed. White blood cell count is 5.5 with a normal differential. Hemoglobin is 11.8 and the platelets are within normal limits. Sodium is mildly increased at 146 with a chloride of 112. - Physical Exam Vital Signs Temp Pulse Resp BP Pulse Ox 98.7 F 75 16 106/70 94 03/26/18 03:54 03/26/18 03:54 03/26/18 03:54 03/26/18 03:54 03/26/18 07:07 Oxygen Delivery Method Room Air Weight: 161 lb 7.994 oz Body Mass Index (BMI) 28.5 Intake and Output for Last 24 Hours 03/24/18 03/25/18 03/26/18 23:59 23:59 23:59 Intake Total 1025 / 1025 2088 / 2088 1480 / 1480 Output Total 600 / 600 1050 / 1050 1950 / 1950 Balance 425 / 425 1038 / 1038 -470 / -470 Laboratory Tests Past 24 Hrs 03/26/18 03/26/18 07:26 07:26 WBC 5.5 RBC 4.09 L Hgb 11.8 L Hct 37.4 MCV 91.4 MCH 28.9 MCHC 31.6 L RDW 13.7 RDW Differential 45.5 H Plt Count 186 MPV 9.8 Immature Gran % (Auto) 0.200 Neut % (Auto) 50.8 Lymph % (Auto) 37.8 [place] % (Auto) 5.9 Eos % (Auto) 4.4 Baso % (Auto) 0.9 Absolute Neuts (auto) 2.8 Absolute Lymphs (auto) 2.06 Total Counted Not Reportable Sodium 146 H Potassium 4.1 Chloride 112 H Carbon Dioxide 28.0 Anion Gap 6 BUN 13 Creatinine 0.84 Estim Creat Clear Calc 75.12 Est GFR (MDRD) Af Amer 98 Est GFR (MDRD) Non-Af 81 BUN/Creatinine Ratio 15.5 Glucose 103 Calcium 8.5 Total Bilirubin 0.30 AST 12 L ALT 17 Alkaline Phosphatase 70 Total Protein 6.3 L Albumin 3.1 L Globulin 3.2 Albumin/Globulin Ratio 1.0 Medical Necessity - Tobacco Use Smoking Status: Current every day smoker Tobacco Use: Cigarettes Assessment/Plan All Active Problems Hydroureter (Acute) Acute colitis (Acute)
[2018-03-26] MEDS: Ciprofloxacin 400 MG/200 ML BAG 200 MG IV (09:25)
[2018-03-26] MEDS: Enoxaparin 40 MG/0.4 ML Syringe SC (09:26)
[2018-03-26] MEDS: Polyethylene Glycol 3350 17 GM PACKET PO (09:26)
[2018-03-26 09:30] VITALS: BP 98/58; PULSE 62; RESP 16; TEMP 36.8; O2SAT 93
--- NOTE | 2018-03-26 11:17 | DCINST_ITS ---
- Discharge Diagnoses Current Active Problems: Current Active and Chronic Problems Hydroureter (Acute) Acute colitis (Acute) You will use the following diet at home:: Regular Your food should be the consistency of: Regular Your liquids should be the consistency of: Regular/Thin Discharge Activity: Return to Normal Activity Return to work on:: 04/04/18 May resume sexual activity in: No Restrictions Call your doctor if you observe: Fever of 101 or Higher, Uncontrolled pain, - - vomiting Instructions: Treating Constipation, Discharge Instructions: Eating a High Fiber Diet Additional Instructions: I advise you to take a stool softener every day to avoid constipation in the future. The XRAY of your abdomen showed a very large amount of stool in the colon and this can cause symptoms similar to a bowel obstruction. There are many stool softeners available over the counter and these include Metamucil, Citracel, miralax, fiber pills. It is also very improtant to keep well hydrated to keep the stool soft. Allergies/Adverse Reactions: Allergies hydromorphone HCl [From Dilaudid] Allergy (Severe, Verified 02/08/18 00:35) Anaphylaxis aspirin [From Percodan] Allergy (Intermediate, Verified 02/08/18 00:35) Swelling oxycodone terephthalate [From Percodan] Allergy (Intermediate, Verified 02/08/18 00:35) Swelling amoxicillin Allergy (Verified 02/08/18 00:35) Hives azithromycin Allergy (Verified 02/08/18 00:35) Other erythromycin base Allergy (Verified 02/08/18 00:35) Hives oxycodone HCl [From Percocet] Allergy (Verified 02/08/18 00:35) Anaphylaxis propoxyphene napsylate [From Darvocet-N] Allergy (Verified 02/08/18 00:35) Other Sulfa (Sulfonamide Antibiotics) Allergy (Verified 02/08/18 00:35) Other tramadol Allergy (Verified 02/08/18 00:35) Hives gabapentin Adverse Reaction (Verified 02/08/18 00:35) Other Medications to take at Discharge Polyethylene Glycol 3350 [Miralax] 17 gm PO DAILY packet 03/26/18 Primary Care Physician: Care Physician,No Primary [Primary Care Provider] - Please follow up with your Primary Care Physician in: 5-7 days Test Results: Test results from this visit will be discussed in further detail at your follow- up appointment, if applicable. Proposed Discharge Date: 03/26/18
--- NOTE | 2018-03-26 11:21 | DS.PCM_ITS ---
Discharge Date and Diagnosis - Problem List Patient Problems: Active and Suspected Problems Hydroureter (Acute) Date of Admission: 03/24/18 Date of Discharge: 03/26/18 - Primary Discharge Diagnosis Active and Suspected Problems Hydroureter (Acute) - US of the kidneys is normal and the UA is negative Acute colitis (Acute) - ruled out. No Fever or leukocytosis or left shift with the WBC's Constipation - Secondary Discharge Diagnosis Chronic Problems overweight History of small bowel obstruction (Chronic) History of multiple abdominal surgeries (Chronic) Hospital Course and Treatment Imaging Results: Clinical Impression(s) from Imaging Studies Abdomen/Pelvis CT 03/24/18 16:11 IMPRESSION: Foci of circumferential wall thickening throughout the colon which may be secondary to its incompletely distended state however cannot exclude underlying colitis. Bilateral hydroureter, more pronounced on the right, uncertain etiology may be related to peristalsis. Electronically Signed: Lashay De La Cruz MD at 18:55 EST Tel , Service support , KUB X-Ray 03/25/18 10:37 IMPRESSION: A large amount of fecal material is seen throughout the colon. Electronically Signed: Kali Luque MD at 15:27 EST Tel [phone], Service support , Renal Ultrasound 03/25/18 10:37 IMPRESSION: Normal ultrasound of the kidneys. Electronically Signed: Kali Luque MD at 15:47 EST Tel [phone], Service support , Laboratory Results - last 24 hr 03/26/18 03/26/18 07:26 07:26 WBC 5.5 RBC 4.09 L Hgb 11.8 L Hct 37.4 MCV 91.4 MCH 28.9 MCHC 31.6 L RDW 13.7 RDW Differential 45.5 H Plt Count 186 MPV 9.8 Immature Gran % (Auto) 0.200 Neut % (Auto) 50.8 Lymph % (Auto) 37.8 [place] % (Auto) 5.9 Eos % (Auto) 4.4 Baso % (Auto) 0.9 Absolute Neuts (auto) 2.8 Absolute Lymphs (auto) 2.06 Total Counted Not Reportable Sodium 146 H Potassium 4.1 Chloride 112 H Carbon Dioxide 28.0 Anion Gap 6 BUN 13 Creatinine 0.84 Estim Creat Clear Calc 75.12 Est GFR (MDRD) Af Amer 98 Est GFR (MDRD) Non-Af 81 BUN/Creatinine Ratio 15.5 Glucose 103 Calcium 8.5 Total Bilirubin 0.30 AST 12 L ALT 17 Alkaline Phosphatase 70 Total Protein 6.3 L Albumin 3.1 L Globulin 3.2 Albumin/Globulin Ratio 1.0 none Operations: None Procedures: None Summary of Care Provided: The patient is a 37-year-old female admitted to the hospital with complaint of severe abdominal pain. CT scan of the abdomen and pelvis showed circumferential wall thickening at several foci in the colon which could be related to colitis or could be due to incompletely distended colon. There was also bilateral hydroureter. Ultrasound of the kidneys was normal. KUB showed a large amount of fecal material throughout the colon. She was afebrile for the duration of her admission and the WBC count and diff were normal. She was started on Flagyl and Cipro at admission but these were discontinued at DC because she had no fever, a normal WBC and the pain was thought to be secondary to marked constipation. She was treated with stool softeners and laxatives and an enema. Prior to DC she had 3 BM's. PHYSICAL EXAM: GENERAL: alert, oriented X 3, Cooperative, NAD ORAL: moist mucosa, no mucosal lesions NECK: No JVD, supple, trachea midline LUNGS: CTA, symmetric chest expansion HEART: RRR, Normal S1 and S2, no rub, no gallop ABDOMEN: soft, tender to palpation in the LLQ, ND, BS present, no guarding with palpation, no masses EXTREMITIES: no edema, no cyanosis, no calf tenderness SKIN: No rashes, no breakdown NEUROLOGIC: no focal neurologic deficits PSYCH: appropriate, normal affect Patient Problems: Active and Suspected Problems Hydroureter (Acute) - Physical Exam Vital Signs Temp Pulse Resp BP Pulse Ox 98.2 F 62 16 98/58 L 93 03/26/18 09:30 03/26/18 09:30 03/26/18 09:30 03/26/18 09:30 03/26/18 09:30 Oxygen Delivery Method Room Air Weight: 161 lb 7.994 oz Body Mass Index (BMI) 28.5 Intake and Output for Last 24 Hours 03/24/18 03/25/18 03/26/18 23:59 23:59 23:59 Intake Total 1025 / 1025 2088 / 2088 1480 / 1480 Output Total 600 / 600 1050 / 1050 1950 / 1950 Balance 425 / 425 1038 / 1038 -470 / -470 Laboratory Tests Past 24 Hrs 03/26/18 03/26/18 07:26 07:26 WBC 5.5 RBC 4.09 L Hgb 11.8 L Hct 37.4 MCV 91.4 MCH 28.9 MCHC 31.6 L RDW 13.7 RDW Differential 45.5 H Plt Count 186 MPV 9.8 Immature Gran % (Auto) 0.200 Neut % (Auto) 50.8 Lymph % (Auto) 37.8 [place] % (Auto) 5.9 Eos % (Auto) 4.4 Baso % (Auto) 0.9 Absolute Neuts (auto) 2.8 Absolute Lymphs (auto) 2.06 Total Counted Not Reportable Sodium 146 H Potassium 4.1 Chloride 112 H Carbon Dioxide 28.0 Anion Gap 6 BUN 13 Creatinine 0.84 Estim Creat Clear Calc 75.12 Est GFR (MDRD) Af Amer 98 Est GFR (MDRD) Non-Af 81 BUN/Creatinine Ratio 15.5 Glucose 103 Calcium 8.5 Total Bilirubin 0.30 AST 12 L ALT 17 Alkaline Phosphatase 70 Total Protein 6.3 L Albumin 3.1 L Globulin 3.2 Albumin/Globulin Ratio 1.0 Discharge Activity: Return to Normal Activity Return to work on:: 04/04/18 May resume sexual activity in: No Restrictions Call your doctor if you observe: Fever of 101 or Higher, Uncontrolled pain, - - vomiting Home Medications: Medications to take at Discharge Polyethylene Glycol 3350 [Miralax] 17 gm PO DAILY packet 03/26/18 Primary Care Physician: Care Physician,No Primary [Primary Care Provider] - Please follow up with your Primary Care Physician in: 5-7 days Patient Instructions: Treating Constipation, Discharge Instructions: Eating a High Fiber Diet Medical Necessity - Tobacco Use Smoking Status: Current every day smoker Tobacco Use: Cigarettes Meaningful Use Info Meaningful Use Diagnoses (Choose all that apply): None applicable Code Visit OBSV E&M: 40188 Observation care discharge
--- NOTE | 2018-03-26 11:22 | PCM.WORK.EX ---
Work/School Excuse From: 03/24/18 through: 03/27/18 Restrictions: Other - she is to be allowed to go to the restroom during the day
[2018-03-26] MEDS: Fleet Enema 1 ML RECTAL (13:24)
[2018-03-26 13:33] VITALS: BP 109/60; PULSE 84; RESP 18; TEMP 36.9; O2SAT 91
--- NOTE | 2018-03-26 13:36 | NURSING ---
Pt was given Fleets Enema at did not hold it in for long, approx 5 min. Pt was able to move bowels, approx 20 quarter sized hard BM's were in BSC. Pt then went two more times after that but was not seen by this nurse. Okay to be released per Dr. Posey.
--- OUTSIDE RECORDS SUMMARY | 2018-05-10 14:10 | XMS RPT_ITS ---
:1980 Author Organization OHIP Care Team Providers Name Role Phone Primay Care Physicia, No Primary Care Unavailable George Smith Admitting Unavailable Argelia Posey Attending Unavailable George Smith Admitting Unavailable Agyepong, George Attending Unavailable Primay Care Physicia, No Primary Care Unavailable Agyepong, George Consulting Unavailable Paintsil, [place] Attending Unavailable Primay Care Physicia, No Primary Care Unavailable Agyepong, George Admitting Unavailable Paula, Sherwin Consulting Unavailable Langley, Romario Consulting Unavailable Agyepong, George Admitting Unavailable Agyepong, George Attending Unavailable Primay Care Physicia, No Primary Care Unavailable Agyepong, George Consulting Unavailable Agyepong, George Admitting Unavailable Jopperi, Romario Attending Unavailable Primay Care Physicia, No Primary Care Unavailable Jopperi, Romario Consulting Unavailable Agyepong, George Admitting Unavailable Sementi, Argelia Attending Unavailable Primay Care Physicia, No Primary Care Unavailable Sementi, Argelia Consulting Unavailable Agyepong, George Admitting Unavailable Paintsil, [place] Attending Unavailable Primay Care Physicia, No Primary Care Unavailable Paula, Sherwin Consulting Unavailable Langley, Romario Consulting Unavailable Paintsil, [place] Consulting Unavailable Agyepong, George Admitting Unavailable Paintsil, [place] Attending Unavailable Primay Care Physicia, No Primary Care Unavailable Paula, Sherwin Consulting Unavailable Langley, Romario Consulting Unavailable Paintsil, [place] Consulting Unavailable Agyepong, George Admitting Unavailable Paintsil, [place] Attending Unavailable Primay Care Physicia, No Primary Care Unavailable Paula, Sherwin Consulting Unavailable Langley, Romario Consulting Unavailable Paintsil, [place] Consulting Unavailable PROBLEMS PROBLEMS No Problem Records FoundPROCEDURES PROCEDURES No Procedure Records FoundRESULTS RESULTS DISCHARGE SUMMARY Observed: 03/26/2018 Status: F Source: [place] 2:31 PM [facility] REPOSITORY [facility] Medical Records Department [address] [place] [address] Discharge Summary 03/26/18 1119 MR#: [id number] Acct: [id number] Name: PETE SMITH Rep #: [id number] : 1980 37 From: Mesfin Posey DO PCP: Care Physician, No Primary Status: DIS SALO Y Location: [place] [address] Discharge Date and Diagnosis - Problem List Patient Problems: Active and Suspected Problems Hydroureter (Acute) Date of Admission: 03/24/18 Date of Discharge: 03/26/18 - Primary Discharge Diagnosis Active and Suspected Problems Hydroureter (Acute) - US of the kidneys is normal and the UA is negative Acute colitis (Acute) - ruled out. No Fever or leukocytosis or left shift with the WBC's Constipation - Secondary Discharge Diagnosis Chronic Problems overweight History of small bowel obstruction (Chronic) History of multiple abdominal surgeries (Chronic) Hospital Course and Treatment Imaging Results: Clinical Impression(s) from Imaging Studies Abdomen/Pelvis CT 03/24/18 16:11 IMPRESSION: Foci of circumferential wall thickening throughout the colon which may be secondary to its incompletely distended state however cannot exclude underlying colitis. Bilateral hydroureter, more pronounced on the right, uncertain etiology may be related to peristalsis. Electronically Signed: Lashay De La Cruz MD at 18:55 EST Tel , Service support , KUB X-Ray 03/25/18 10:37 IMPRESSION: A large amount of fecal material is seen throughout the colon. Electronically Signed: Kali Luque MD at 15:27 EST Tel [phone], Service support , Renal Ultrasound 03/25/18 10:37 IMPRESSION: Normal ultrasound of the kidneys. Electronically Signed: Kali Luque MD at 15:47 EST Tel [phone], Service support , Laboratory Results - last 24 hr WBC 5.5 RBC 4.09 L Hgb 11.8 L Hct 37.4 none Operations: None Procedures: None Summary of Care Provided: The patient is a 37-year-old female admitted to the hospital with complaint of severe abdominal pain. CT scan of the abdomen and pelvis showed circumferential wall thickening at several foci in the colon which could be related to colitis or could be due to incompletely distended colon. There was also bilateral hydroureter. Ultrasound of the kidneys was normal. KUB showed a large amount of fecal material throughout the colon. She was afebrile for the duration of her admission and the WBC count and diff were normal. She was started on Flagyl and Cipro at admission but these were discontinued at DC because she had no fever, a normal WBC and the pain was thought to be secondary to marked constipation. She was treated with stool softeners and laxatives and an enema. Prior to DC she had 3 BM's. PHYSICAL EXAM: GENERAL: alert, oriented X 3, Cooperative, NAD ORAL: moist mucosa, no mucosal lesions NECK: No JVD, supple, trachea midline LUNGS: CTA, symmetric chest expansion HEART: RRR, Normal S1 and S2, no rub, no gallop ABDOMEN: soft, tender to palpation in the LLQ, ND, BS present, no guarding with palpation, no masses EXTREMITIES: no edema, no cyanosis, no calf tenderness SKIN: No rashes, no breakdown NEUROLOGIC: no focal neurologic deficits PSYCH: appropriate, normal affect Patient Problems: Active and Suspected Problems Hydroureter (Acute) - Physical Exam Vital Signs Temp Pulse Resp BP Pulse Ox 98.2 F 62 16 98/58 L 93 03/26/18 09:30 03/26/18 09:30 03/26/18 09:30 03/26/18 09:30 03/26/18 09:30 Oxygen Delivery Method Room Air Weight: 161 lb 7.994 oz Body Mass Index (BMI) 28.5 Intake and Output for Last 24 Hours Intake Total 1025 / 1025 2088 / 2088 1480 / 1480 Output Total 600 / 600 1050 / 1050 1950 / 1950 Balance 425 / 425 1038 / 1038 -470 / -470 Laboratory Tests Past 24 Hrs WBC 5.5 RBC 4.09 L Hgb 11.8 L Hct 37.4 Discharge Activity: Return to Normal Activity Return to work on:: 04/04/18 May resume sexual activity in: No Restrictions Call your doctor if you observe: Fever of 101 or Higher, Uncontrolled pain, - - vomiting Home Medications: Medications to take at Discharge Polyethylene Glycol 3350 [Miralax] 17 gm PO DAILY packet 03/26/18 Primary Care Physician: Care Physician,No Primary [Primary Care Provider] - Please follow up with your Primary Care Physician in: 5-7 days Patient Instructions: Treating Constipation, Discharge Instructions: Eating a High Fiber Diet Medical Necessity - Tobacco Use Smoking Status: Current every day smoker Tobacco Use: Cigarettes Meaningful Use Info Meaningful Use Diagnoses (Choose all that apply): None applicable Code Visit OBSV Jaime AND M: [id number] Observation care discharge 03/26/18 7151 <Electronically signed by Mesfin Posey DO> Date Mesfin Posey DO Cosigner Signature (if applicable): Date CC: No Primary Care Physician; Argelia Posey Signed DISCHARGE INSTRUCTION Observed: 03/26/2018 Status: F Source: [place] 11:19 AM [facility] REPOSITORY [facility] Medical Records Department [address] [place] [address] Instructions for Home/Discharge Instructions 03/26/18 1113 MR#: [id number] Acct: [id number] Name: PETE SMITH Rep #: [id number] : 1980 37 From: Mesfin Posey DO PCP: Care Physician, No Primary Status: ADM SALO - Discharge Diagnoses Current Active Problems: Current Active and Chronic Problems Hydroureter (Acute) Acute colitis (Acute) You will use the following diet at home:: Regular Your food should be the consistency of: Regular Your liquids should be the consistency of: Regular/Thin Discharge Activity: Return to Normal Activity Return to work on:: 04/04/18 May resume sexual activity in: No Restrictions Call your doctor if you observe: Fever of 101 or Higher, Uncontrolled pain, - - vomiting Instructions: Treating Constipation, Discharge Instructions: Eating a High Fiber Diet Additional Instructions: I advise you to take a stool softener every day to avoid constipation in the future. The XRAY of your abdomen showed a very large amount of stool in the colon and this can cause symptoms similar to a bowel obstruction. There are many stool softeners available over the counter and these include Metamucil, Citracel, miralax, fiber pills. It is also very improtant to keep well hydrated to keep the stool soft. Allergies/Adverse Reactions: Allergies hydromorphone HCl [From Dilaudid] Allergy (Severe, Verified 02/08/18 00:35) Anaphylaxis aspirin [From Percodan] Allergy (Intermediate, Verified 02/08/18 00:35) Swelling oxycodone terephthalate [From Percodan] Allergy (Intermediate, Verified 02/08/18 00:35) Swelling amoxicillin Allergy (Verified 02/08/18 00:35) Hives azithromycin Allergy (Verified 02/08/18 00:35) Other erythromycin base Allergy (Verified 02/08/18 00:35) Hives oxycodone HCl [From Percocet] Allergy (Verified 02/08/18 00:35) Anaphylaxis propoxyphene napsylate [From Darvocet-N] Allergy (Verified 02/08/18 00:35) Other Sulfa (Sulfonamide Antibiotics) Allergy (Verified 02/08/18 00:35) Other tramadol Allergy (Verified 02/08/18 00:35) Hives gabapentin Adverse Reaction (Verified 02/08/18 00:35) Other Medications to take at Discharge Polyethylene Glycol 3350 [Miralax] 17 gm PO DAILY packet 03/26/18 Primary Care Physician: Care Physician,No Primary [Primary Care Provider] - Please follow up with your Primary Care Physician in: 5-7 days Test Results: Test results from this visit will be discussed in further detail at your follow-up appointment, if applicable. Proposed Discharge Date: 03/26/18 03/26/18 1119 <Electronically signed by Mesfin Posey DO> Date Mesfin Posey DO CC: No Primary Care Physician CBC W/DIFF, AUTOMATED Collected: 03/26/2018 Status: F Source: [place] 7:26 AM [facility] REPOSITORY TYPE CODE TESTS RESULT OUT OF RANGE REFERENCE UNITS LAB L100.1000 4.4-11.0 K/mm3 Normal WBC 5.5 LAB L100.1200 4.2-5.4 M/mm3 Low RBC 4.09 LAB L100.1300 12.0-15.0 g/dl Low HGB 11.8 LAB L100.1400 37-47 % Normal HCT 37.4 LAB L100.1500 81-99 fL Normal MCV 91.4 LAB L100.1600 27.0-32.0 pg Normal MCH 28.9 LAB L100.1700 32-36 g/gl Low MCHC 31.6 LAB L100.1810 11.6-14.6 % Normal RDW CV 13.7 LAB L100.1820 35.1-43.9 fl High RDW SD 45.5 LAB L100.1900 150-450 K/mm3 Normal PLT 186 LAB L100.2000 6.2-12.0 fl Normal MPV 9.8 LAB L100.2100 47-70 % Normal NEUT% 50.8 LAB L100.2200 19-41 % Normal LY% 37.8 LAB L100.2300 0-10 % Normal MONO% 5.9 LAB L100.2400 0-5 % Normal EO% 4.4 LAB L100.2500 0-1 % Normal BASO% 0.9 LAB L100.2550 0.0-0.9 % Normal IM GRAN % 0.200 Result Comment: IG% - Immature Granulocytes (promyelocytes, myelocytes and metamyelocytes) > 1% indicates that a LEFT SHIFT is Present. LAB L100.2620 2.0-7.7 X10 3/uL Normal Absolute Neut 2.8 LAB L100.2720 0.83-4.51 X10 3/ul Normal Absolute Lymph 2.06 Performed By: #### L100.0100 #### [facility] [address] [place], [place], [address] COMPREHENSIVE METABOLIC Collected: 03/26/2018 Status: F Source: [facility] 7:26 AM [facility] REPOSITORY TYPE CODE TESTS RESULT OUT OF RANGE REFERENCE UNITS LAB L501.0100 74-106 mg/dL Normal GLU 103 Result Comment: Fasting Glucose result from 100 to 125 mg/dL suggests IMPAIRED HOMEOSTASIS per A.D.A. criteria. Please note revised GLUCOSE reference range effective 2017. LAB L501.1000 7-18 mg/dL Normal BUN 13 LAB L501.1100 0.55-1.02 mg/dL Normal CREAT,SERUM 0.84 Result Comment: The validity of the calculated GFR AND GFRAA in patients over 70 years has not been determined. Clinical correlation is essential. LAB L501.1110 >60 mL/min Normal EST GFR 81 Result Comment: Non- GFR Calc LAB L501.1115 >60 mL/min Normal EST GFR - AA 98 Result Comment: GFR Calc LAB L501.1255 ml/min Normal Estimated CRCL 75.12 LAB L501.1300 10-20 RATIO Normal BUN/CRE 15.5 LAB L501.1500 6.4-8. g/dL Low 2 T PROT 6.3 LAB L501.1800 3.2-5. g/dL Low 0 ALB 3.1 LAB L501.1950 2.2-4. g/dL Normal 2 GLOB 3.2 LAB L501.2000 0.9-2. RATIO Normal 4 A/G 1.0 LAB L501.2200 8.5-10 mg/dL Normal .1 CA 8.5 LAB L501.4100 15-37 U/L Low AST 12 LAB L501.4305 45-117 U/L Normal ALK P 70 LAB L501.4405 13-56 U/L Normal ALT 17 LAB L501.4600 0.20-1 mg/dL Normal .00 T BILI 0.30 LAB L501.5300 136-14 mmol/L High 5 NA 146 LAB L501.5600 3.5-5. mmol/L Normal 1 K 4.1 LAB L501.5900 98-107 mmol/L High CL 112 LAB L501.6100 21.0-3 mmol/L Normal 2.0 CO2 28.0 LAB L501.6200 5-15 Normal GAP 6 Performed By: #### L500.4050 #### [facility] [address] [facility] [place], [address] ABDOMEN SINGLE VIEW Observed: 03/25/2018 Status: F Source: [place] 10:38 AM [facility] REPOSITORY [facility] Imaging Services [address] [place] [address] Abdomen Single View MR#: [id number] Acct: [id number] Name: PETE SMITH Rep #: [id number] : 1980 F 37 From: Kali Luque MD PCP: Care Physician, No Primary Status: ADM SALO Study: Abdomen Single View Date of Exam: 03/25/18 Exam# [id number] Ordering Dr: Romario Nieto DO STUDY: X-RAY - ABDOMEN/PELVIS REASON FOR EXAM: Female, 37 years old. Abdominal pain. TECHNIQUE: Two AP supine views of the abdomen and pelvis. COMPARISON: None. FINDINGS: Normal visualized lung bases. There is an abundance of fecal material throughout the colon. The visualized liver, spleen and kidneys are grossly normal in size and morphology. Residual contrast is seen within the bladder from prior CT scan examination. Normal soft tissue structures. Normal visualized osseous structures. RAD/Abdomen Single View IMPRESSION: A large amount of fecal material is seen throughout the colon. Electronically Signed: Kali Luque MD at 15:27 EST Tel [phone], Service support , CC: No Primary Care Physician; Romario Nieto DO [employer] Operator: Signed KIDNEY AND BLADDER Observed: 03/25/2018 Status: F Source: [place] 10:38 AM [facility] REPOSITORY [facility] Imaging Services [address] [place] [address] Kidney and Bladder MR#: [id number] Acct: [id number] Name: PETE SMITH Rep #: [id number] : 1980 F 37 From: Kali Luque MD PCP: Care Physician, No Primary Status: ADM SALO Study: Kidney and Bladder Date of Exam: 03/25/18 Exam# [id number] Ordering Dr: Romario Nieto DO STUDY: RENAL ULTRASOUND - COMPLETE REASON FOR EXAM: Female, 37 years old. Hydroureter. TECHNIQUE: Ultrasound evaluation of the kidneys was performed with real-time and static bonilla-scale imaging. COMPARISON: None. FINDINGS: RIGHT KIDNEY: Normal location of the right kidney, which is normal in size. The right kidney measures 10.4 cm x 5.7 cm x 3.6 cm. There is a normal cortex of the right kidney. The renal cortex measures 1.2 cm. There is no right renal mass or cyst. There are no right renal calculi. There is no right hydronephrosis. DISTAL RIGHT URETER: There is non-visualization of the distal right ureter. There is no demonstrated right ureterovesical junction calculus. There is no demonstrated right ureteral jet. LEFT KIDNEY: Normal location of the left kidney, which is normal in size. The left kidney measures 10.7 cm x 5.1 cm x 4.0 cm. There is a normal cortex of the left kidney. The renal cortex measures 0.8 cm. There is no left renal mass or cyst. There are no left renal calculi. There is no left hydronephrosis. DISTAL LEFT URETER: There is non-visualization of the distal left ureter. There is no demonstrated left ureterovesical junction calculus. There is no demonstrated left ureteral jet. BLADDER: The bladder is not adequately distended at the time of the examination. US/Kidney and Bladder IMPRESSION: Normal ultrasound of the kidneys. Electronically Signed: Kali Luque MD at 15:47 EST Tel [phone], Service support , CC: No Primary Care Physician; Romario Nieto DO [employer] Operator: Signed CBC W/DIFF, AUTOMATED Collected: 03/25/2018 Status: F Source: [place] 6:18 AM [facility] REPOSITORY TYPE CODE TESTS RESULT OUT OF RANGE REFERENCE UNITS LAB L100.1000 4.4-11.0 K/mm3 Normal WBC 5.3 LAB L100.1200 4.2-5.4 M/mm3 Low RBC 4.02 LAB L100.1300 12.0-15.0 g/dl Low HGB 11.5 LAB L100.1400 37-47 % Low HCT 36.7 LAB L100.1500 81-99 fL Normal MCV 91.3 LAB L100.1600 27.0-32.0 pg Normal MCH 28.6 LAB L100.1700 32-36 g/gl Low MCHC 31.3 LAB L100.1810 11.6-14.6 % Normal RDW CV 13.8 LAB L100.1820 35.1-43.9 fl High RDW SD 45.9 LAB L100.1900 150-450 K/mm3 Normal PLT 159 LAB L100.2000 6.2-12.0 fl Normal MPV 9.9 LAB L100.2100 47-70 % Normal NEUT% 47.2 LAB L100.2200 19-41 % Normal LY% 40.5 LAB L100.2300 0-10 % Normal MONO% 8.1 LAB L100.2400 0-5 % Normal EO% 3.6 LAB L100.2500 0-1 % Normal BASO% 0.6 LAB L100.2550 0.0-0.9 % Normal IM GRAN % 0.000 Result Comment: IG% - Immature Granulocytes (promyelocytes, myelocytes and metamyelocytes) > 1% indicates that a LEFT SHIFT is Present. LAB L100.2620 2.0-7.7 X10 3/uL Normal Absolute Neut 2.5 LAB L100.2720 0.83-4.51 X10 3/ul Normal Absolute Lymph 2.14 Performed By: #### L100.0100 #### [facility] [address] [place], [place], [id number] BASIC METABOLIC Collected: 03/25/2018 Status: F Source: [place] PROFILE (BMP) 6:18 AM [facility] REPOSITORY TYPE CODE TESTS RESULT OUT OF RANGE REFERENCE UNITS LAB L501.0100 74-106 mg/dL High GLU 109 Result Comment: Fasting Glucose result from 100 to 125 mg/dL suggests IMPAIRED HOMEOSTASIS per A.D.A. criteria. Please note revised GLUCOSE reference range effective 2017. LAB L501.1000 7-18 mg/dL Normal BUN 11 LAB L501.1100 0.55-1.02 mg/dL Normal CREAT,SERUM 0.67 Result Comment: The validity of the calculated GFR AND GFRAA in patients over 70 years has not been determined. Clinical correlation is essential. LAB L501.1110 >60 mL/min Normal EST GFR 104 Result Comment: Non- GFR Calc LAB L501.1115 >60 mL/min Normal EST GFR - AA 126 Result Comment: GFR Calc LAB L501.1255 ml/min Normal Estimated CRCL 94.18 LAB L501.1300 10-20 RATIO Normal BUN/CRE 16.4 LAB L501.2200 8.5-10 mg/dL Low .1 CA 8.2 LAB L501.5300 136-14 mmol/L Normal 5 NA 145 LAB L501.5600 3.5-5. mmol/L Low 1 K 3.4 LAB L501.5900 98-107 mmol/L High CL 113 LAB L501.6100 21.0-3 mmol/L Normal 2.0 CO2 27.0 LAB L501.6200 5-15 Normal GAP 5 Performed By: #### L500.2500 #### [facility] [address] [facility] [place], [place], [address] HISTORY AND PHYSICAL Observed: 03/25/2018 Status: F Source: [place] EXAM 3:24 AM [facility] REPOSITORY [facility] Medical Records Department [address] [place] [address] History and Physical 03/24/181912 MR#: [id number] Acct: [id number] Name: PETE SMITH Rep #: [id number] : 1980 37 From: George Smith MD PCP: Care Physician, No Primary Status: ADM SALO Y Location: [place] [address] Problem List (1) Acute colitis Status: Acute (2) Ileus Status: Inactive (3) Mastoiditis Status: Inactive (4) Otitis media Status: Inactive (5) History of multiple abdominal surgeries Status: Chronic History of Present Illness Date of Admission: 03/24/18 Chief Complaint: abdominal pain The patient is a 37 year old F with a significant history of hyperlipidemia; tobacco abuse. borderline diabetes; anemia; bipolar disorder; multiple bowel obstructions with multiple abdominal surgery; hysterectomy; appendectomy; cholecystectomy who presented with 1 day history of progressively worsening abdominal pain with left-side worse than right-side. Pain is nonradiating. Pain increases with moving. It is ameliorated when she stays still. Patient denies any nausea or vomiting. Patient reports normal bowel pattern. Typically her bowels move once a week. However in the last week her bowels has moved 3 times. Her last bowel movement was on the same day of presentation. CT of abdomen and pelvis showed circumferential wall thickening throughout the colon which may be secondary to its incompletely distended state however cannot exclude underlying colitis. Also there was bilateral hydroureter more pronounced on the right with uncertain etiology but attributed to likely peristalsis. Past Medical History Past Medical History (Chronic Problems): Chronic Problems History of small bowel obstruction (Chronic) History of multiple abdominal surgeries (Chronic) Allergies hydromorphone HCl [From Dilaudid] Allergy (Severe, Verified 02/08/18 00:35) Anaphylaxis aspirin [From Percodan] Allergy (Intermediate, Verified 02/08/18 00:35) Swelling oxycodone terephthalate [From Percodan] Allergy (Intermediate, Verified 02/08/18 00:35) Swelling amoxicillin Allergy (Verified 02/08/18 00:35) Hives azithromycin Allergy (Verified 02/08/18 00:35) Other erythromycin base Allergy (Verified 02/08/18 00:35) Hives oxycodone HCl [From Percocet] Allergy (Verified 02/08/18 00:35) Anaphylaxis propoxyphene napsylate [From Darvocet-N] Allergy (Verified 02/08/18 00:35) Other Sulfa (Sulfonamide Antibiotics) Allergy (Verified 02/08/18 00:35) Other tramadol Allergy (Verified 02/08/18 00:35) Hives gabapentin Adverse Reaction (Verified 02/08/18 00:35) Other Home Medications: Ambulatory Orders Medication Instructions Recorded NK 03/24/18 Surgical History: appendectomy, cholecystectomy, hysterectomy, - - Small bowel reconstruction Psychiatric History: Bipolar Lives: With Family Smoking Status: Current every day smoker Tobacco Use: Cigarettes - *Family History Paternal History Items: Cancer, Diabetes, - - luekemia, strokes. Maternal History Items: Cancer Review of Systems Constitutional: Denies: Chills, Fever, Weight Change HEENT: Denies: Head Aches, Sinus Congestion, Sinus Drainage Cardiovascular: Denies: Chest Pain, Palpitations Respiratory: Denies: Cough, Shortness of breath at rest, Sputum production Gastrointestinal: Reports: Abdominal Pain. Denies: Nausea, Vomiting Genitourinary: Denies: Dysuria Musculoskeletal: Denies: Joint Pain, Joint Tenderness Skin: Denies: Rash, Wounds Neurological: Denies: Numbness, Tingling, Focal weakness Psychiatric: Denies: Anxiety, Depression, Homicidal Ideations, Suicidal Ideations Hematologic/ Lymphatic: Denies: Easy Bruising, Easy Bleeding VTE Information - Inpt Only VTE Present on Admission: No VTE Mechan Device Prophylaxis: None VTE Pharm Prophylaxis ordered?: Yes Patient Problems: Active and Suspected Problems Acute colitis (Acute) - Physical Exam General: Alert, Oriented x3, Cooperative HEENT: Atraumatic, PERRLA, EOMI, Normocephalic Neck: Supple, No JVD, Negative Carotid Bruits Lungs: Clear to auscultation, Normal air movement Cardiovascular: Regular rate, No murmurs Abdomen: Bowel Sounds Present - Hypoactive, Soft, Tender Extremities: No edema, Capillary Refill Less than 3 Seconds Skin: No rashes, No breakdown Musculoskeletal: No Tenderness to Palpation of Joints or Extremities Neurological: Cranial nerves II-XII grossly intact Psych/Mental Status: Normal Affect, Appropriate Vital Signs Temp Pulse Resp BP Pulse Ox 95.9 F L 57 L 16 95/73 99 03/24/18 16:00 03/24/18 18:45 03/24/18 18:45 03/24/18 18:45 03/24/18 18:45 Oxygen Delivery Method Room Air Weight: 66.678 kg Body Mass Index (BMI) 26.0 Laboratory Tests Past 24 Hrs WBC 6.6 RBC 4.52 WBC RBC Hgb Hct MCV Assessment/Plan All Active Problems Acute colitis (Acute) Obesity (BMI 30-39.9) (Acute) The patient is a 37 year old F with a significant history of hyperlipidemia; tobacco abuse. borderline diabetes; anemia; bipolar disorder; multiple bowel obstructions with multiple abdominal surgery; hysterectomy; appendectomy; cholecystectomy who presented with 1 day history of progressively worsening abdominal pain with left-sided more than right-sided with radiographic evidence of circumferential wall thickening without exclusion of colitis; and bilateral hydro-ureter. Intractable abdominal pain Probable acute colitis We will treat patient for infectious colitis with conservative management of IV antibiotics; Flagyl and Cipro. Supportive treatment with IV fluids and IV morphine. As needed Zofran ordered. We will follow CBC and BMP. Bilateral Hydroureter With etiology unclear at this point; likely secondary to reduced peristalsis per radiologist impression. Will treat abdominal pain as above Borderline diabetes On admission glucose on BMP was within goal. Trend BMP. Tobacco abuse Counseled Declined nicotine patch. DVT prophylaxis Subcutaneous Lovenox. Code Visit OBSV E AND M: [id number] Initial observation care L3 03/25/18 0324 <Electronically signed by George Smith MD> Date George Smith MD Cosigner Signature: Date (if applicable) CC: No Primary Care Physician; George Smith MD Signed EMERGENCY DEPARTMENT Observed: 03/24/2018 Status: F Source: [place] SUMMARY 7:15 PM [facility] REPOSITORY [facility] Medical Records Department [address] [place] [address] Emergency Department Summary 03/24/181911 MR#: [id number] Acct: [id number] Name: PETE SMITH Rep #: [id number] : 1980 37 From: Ashley Rojo DO PCP: Care Physician, No Primary Status: REG ER - ER Visit Summary Date of Service: 03/24/18 Chief Complaint: [Abdominal pain] History of Present Illness: The patient is a 37 F [presents the emergency department complaint of abdominal pain that started this morning. Patient rates the pain currently as a 10 out of 10. She denies any nausea or vomiting with it. Patient states that she woke up with the pain but got worse throughout the day. Patient had similar pain multiple times in the past because she states she has been dealing with this pain for years off and on. Patient has had a history of small bowel obstructions requiring surgery. Patient's had multiple abdominal surgeries and states that last time she will get her care down in [place] because nobody appear once to touch her. Patient has had prior appendectomy, cholecystectomy, hysterectomy, tubal ligation. Patient denies any fevers. She denies urinary symptoms.] Physical Examination: [HEENT-PERRLA, EOMI. Cranial nerves II through XII grossly intact. TMs clear. Mucous membranes moist. No adenopathy. Cardiovascular-regular rate and rhythm without murmur or ectopy Lungs-clear to auscultation, chest wall stable without crepitus or subcu emphysema Abdomen-normoactive bowel sounds, soft. Patient has diffuse tenderness to palpation with some guarding. There is no rebound, rigidity, or perineal signs. Extremities-intact 4, normal range of motion, normal pulses, atraumatic] Test Results: [CBC with differential obtained was normal. Chemistries were normal. LFTs were normal. Lipase was 84. Urinalysis was normal. CT scan of the abdomen pelvis with IV and p.o. contrast ordered showed some foci of circumferential wall thickening of the colon which could represent colitis versus incompletely distended colon. Patient also had bilateral hydroureters of uncertain etiology has no obstructing ureteral stones noted.] Emergency Department Course and Treatment: [Patient was medicated with morphine and Zofran. Patient initially had some pain relief however she required a second dose of morphine. Patient continues to complain of pain.] Treatment Plan: [Admit for IV fluids and pain control] Disposition: [Admit] Impression: [Abdominal pain-etiology uncertain Intractable pain] This note was generated with [employer] dictation software. It may contain incorrect words, spelling, and punctuation that were not noted in review of the chart prior to signing ED Disposition - Plan for ED Patient: Chief Complaint: Abd Pain Referrals: Care Physician,No Primary [Primary Care Provider] - What to do if you have Problems For any increased pain, shortness of breath, bleeding, nausea or vomiting, chest pain, or any unexpected problems, contact your Primary Care Provider. Call [facility] ([phone]) or report to the closest Emergency Room. Call 911 if necessary. 03/24/18 3935 <Electronically signed by Ashley Rojo DO> Date Ashley Rojo DO Cosigner Signature (If Indicated): Date CC: No Primary Care Physician CBC W/DIFF, AUTOMATED Collected: 03/24/2018 Status: F Source: [place] 4:39 PM [facility] REPOSITORY TYPE CODE TESTS RESULT OUT OF RANGE REFERENCE UNITS LAB L100.1000 4.4-11.0 K/mm3 Normal WBC 6.6 LAB L100.1200 4.2-5.4 M/mm3 Normal RBC 4.52 LAB L100.1300 12.0-15.0 g/dl Normal HGB 13.0 LAB L100.1400 37-47 % Normal HCT 40.4 LAB L100.1500 81-99 fL Normal MCV 89.4 LAB L100.1600 27.0-32.0 pg Normal MCH 28.8 LAB L100.1700 32-36 g/gl Normal MCHC 32.2 LAB L100.1810 11.6-14.6 % Normal RDW CV 13.7 LAB L100.1820 35.1-43.9 fl High RDW SD 44.9 LAB L100.1900 150-450 K/mm3 Normal PLT 202 LAB L100.2000 6.2-12.0 fl Normal MPV 10.2 LAB L100.2100 47-70 % Normal NEUT% 51.1 LAB L100.2200 19-41 % Normal LY% 38.3 LAB L100.2300 0-10 % Normal MONO% 6.6 LAB L100.2400 0-5 % Normal EO% 3.0 LAB L100.2500 0-1 % Normal BASO% 0.8 LAB L100.2550 0.0-0.9 % Normal IM GRAN % 0.200 Result Comment: IG% - Immature Granulocytes (promyelocytes, myelocytes and metamyelocytes) > 1% indicates that a LEFT SHIFT is Present. LAB L100.2620 2.0-7.7 X10 3/uL Normal Absolute Neut 3.4 LAB L100.2720 0.83-4.51 X10 3/ul Normal Absolute Lymph 2.54 Performed By: #### L100.0100 #### [facility] [address] [place], [place], [address] LACTIC ACID Collected: 03/24/2018 Status: F Source: [place] 4:39 PM [facility] REPOSITORY Order Comment: Yes/No query for Sepsis Lactate Rule Y TYPE CODE TESTS RESULT OUT OF RANGE REFERENCE UNITS LAB L503.6005 0.4-2.0 mmol/L Normal LACTIC ACID 0.5 Performed By: #### L503.6005 #### [facility] [address] [place], [address] BASIC METABOLIC Collected: 03/24/2018 Status: F Source: [place] PROFILE (BMP) 4:39 PM [facility] REPOSITORY TYPE CODE TESTS RESULT OUT OF RANGE REFERENCE UNITS LAB L501.0100 74-106 mg/dL Normal GLU 82 Result Comment: Please note revised GLUCOSE reference range effective 2017. LAB L501.1000 7-18 mg/dL Normal BUN 13 LAB L501.1100 0.55-1.02 mg/dL Normal CREAT,SERUM 0.76 Result Comment: The validity of the calculated GFR AND GFRAA in patients over 70 years has not been determined. Clinical correlation is essential. LAB L501.1110 >60 mL/min Normal EST GFR 90 Result Comment: Non- GFR Calc LAB L501.1115 >60 mL/min Normal EST GFR - AA 109 Result Comment: GFR Calc LAB L501.1255 ml/min Normal Estimated CRCL 83.02 LAB L501.1300 10-20 RATIO Normal BUN/CRE 17.0 LAB L501.2200 8.5-10 mg/dL Normal .1 CA 9.3 LAB L501.5300 136-14 mmol/L Normal 5 NA 144 LAB L501.5600 3.5-5. mmol/L Normal 1 K 4.4 Result Comment: Moderate Hemolysis, Result may be falsely increased. LAB L501.5900 98-107 mmol/L High CL 110 LAB L501.6100 21.0-32.0 mmol/L Normal CO2 27.0 LAB L501.6200 5-15 Normal 7 GAP Performed By: #### L500.2500, L501.2450 #### [facility] [address] [place], [address] LIPASE Collected: 03/24/2018 Status: F Source: [place] 4:39 PM [facility] REPOSITORY TYPE CODE TESTS RESULT OUT OF RANGE REFERENCE UNITS LAB L501.2450 73-393 U/L Normal LIPASE 84 Performed By: #### L500.2500, L501.2450 #### [facility] [address] [place], [place], [address] URINALYSIS, COMPLETE Collected: 03/24/2018 Status: F Source: [place] 4:30 PM [facility] REPOSITORY Order Comment: Order Date: 03/24/18 How was Urine Obtained? CLEAN CATCH TYPE CODE TESTS RESULT OUT OF RANGE REFERENCE UNITS LAB L400.3000 Yellow COLOR Normal Yellow LAB L400.3050 Clear Normal CLARITY Sl. Cloudy LAB L400.3200 Normal mg/dl Normal GLUCOSE, UR Normal LAB L400.3300 Negative mg/dL Normal BILIRUBIN URINE Negative LAB L400.3400 Negative mg/dl Normal KETONE UR Negative LAB L400.3465 1.002-1.030 Normal SP.GR. DIPSTX 1.015 LAB L400.3550 5.0 - 8.0 pH UR Normal 6.0 LAB L400.3600 Negative mg/dl PROT Normal DIPSTX Negative LAB L400.3700 Normal mg/dl Normal UROBILI Normal LAB L400.3750 Negative Normal NITRITE UR Negative LAB L400.3780 Negative /ul Normal OCCULT BLOOD-UR Negative LAB L400.3800 Negative /ul LEUK Normal ESTERASE Negative LAB L400.4050 0-5 /hpf WBC 0 Normal SEEN LAB L400.4100 0-5 /hpf 0 Normal RBC-UA SEEN LAB L400.4150 5-10 /hpf SQUAM Normal EPI 0-5 SEEN LAB L400.4300 None Seen /hpf 0 Normal BACTERIA SEEN LAB L400.4350 <or=2+ /hpf 0 Normal MUCUS, URINE SEEN Performed By: #### L400.0001 #### [facility] [address] [facility] [place], [place], [address] ABDOMEN/PELVIS WITH Observed: 03/24/2018 Status: F Source: [place] CONTRAST 4:13 PM [facility] REPOSITORY [facility] Imaging Services [address] [place] [address] Abdomen/Pelvis WITH Contrast MR#: [id number] Acct: [id number] Name: SARAHADELEWILLARD Lozano Rep #: [id number] : 1980 F 37 From: Lashay De La Cruz MD PCP: Care Physician, No Primary Status: REG ER Study: Abdomen/Pelvis WITH Contrast Date of Exam: 03/24/18 Exam# [id number] Ordering Dr: Ashley Rojo DO STUDY: CT ABDOMEN AND PELVIS WITH CONTRAST REASON FOR EXAM: Female, 37 years old. Abdominal pain. RADIATION DOSAGE (If Supplied By Facility): CTDIvol = ( 15.34 ) mGy, DLP = ( 968.02 ) mGycm TECHNIQUE: Transaxial images were obtained from the dome of the diaphragm to the symphysis pubis without oral contrast. 100ml ml of Isovue 300 contrast was administered. Sagittal and coronal images were reconstructed. Individualized dose optimization techniques were used for this CT. COMPARISON: October 02, 2016 FINDINGS: The visualized lung bases are unremarkable. The visualized portions of the heart are within normal limits. Normal liver. There are surgical clips in the gallbladder fossa consistent with a prior cholecystectomy. Normal spleen. Normal pancreas. Normal bilateral adrenal glands. Normal right kidney. Normal left kidney. There is bilateral hydroureter, more pronounced on the right. Normal visualized stomach. Normal small intestine. There are foci of circumferential wall thickening throughout the colon which is incompletely distended. The appendix is surgically absent. Normal abdominal aorta. Normal inferior vena cava. Normal retroperitoneum. Normal urinary bladder. There are postsurgical changes along the abdominal wall. Normal osseous structures. CT/Abdomen/Pelvis WITH Contrast IMPRESSION: Foci of circumferential wall thickening throughout the colon which may be secondary to its incompletely distended state however cannot exclude underlying colitis. Bilateral hydroureter, more pronounced on the right, uncertain etiology may be related to peristalsis. Electronically Signed: Lashay De La Cruz MD at 18:55 EST Tel , Service support , CC: No Primary Care Physician; Ashley Rojo DO [employer] Operator: Signed DISCHARGE SUMMARY Observed: 02/10/2018 Status: F Source: [place] 1:38 PM [facility] REPOSITORY [facility] Medical Records Department [address] [place] [address] Discharge Summary 02/10/18 0923 MR#: [id number] Acct: [id number] Name: PETE SMITH Rep #: [id number] : 1980 37 From: Mikayla Jiménez MD PCP: Care Physician, No Primary Status: DIS IN Y Location: MS3 HU602-2 Discharge Date and Diagnosis Date of Admission: 02/07/18 Date of Discharge: 02/10/18 - Primary Discharge Diagnosis Active and Suspected Problems Otitis media (Acute) Mastoiditis (Acute) Possible otitis externa Relative hypotension - Secondary Discharge Diagnosis Chronic Problems History of small bowel obstruction (Chronic) History of multiple abdominal surgeries (Chronic) Hospital Course and Treatment Imaging Results: Clinical Impression(s) from Imaging Studies CT Orbit Sella Inner 02/07/18 21:06 IMPRESSION: Findings consistent with right otomastoiditis. Cannot exclude possibility of coexisting cholesteatoma. Electronically Signed: Remy Holloway MD at 22:16 EDT , Service support , ADDENDUM: 02/07/18 2224 Mandible X-Ray 02/08/18 09:57 IMPRESSION: Normal x-ray examination of the mandible. Electronically Signed: Kali Luque MD at 12:20 EDT Tel [phone], Service support , ID ENT Operations: None Procedures: None Summary of Care Provided: 37-year-old female with no significant past medical history comes in with complaints of right ear pain, failed conservative treatment in the outpatient. Patient CT scan was suggestive of right otomastoiditis. She was managed as right otomastoiditis with possible otitis externa initially on vancomycin and cefepime. ID and ENT were consulted. Patient was started on ciprofloxacin with steroids topically. Vancomycin was later discontinued after MRSA screen was negative. Patient was found to be relatively hypotensive second to IV morphine. Narcotic medications were discontinued, continued with IV fluids with improvement in her blood pressure. She was discharged on oral Levaquin for 10 more days. Follow- up with ENT in the outpatient. Subjective: On the day of discharge, patient had no complaints. She was tolerating meals without pain in her jaw. Denies fever or chills. Objective: Physical exam: General: Alert, Oriented x3, Cooperative, No apparent distress, HEENT: Atraumatic, PERRLA, EOMI, Normocephalic, - - Right periauricular tenderness, no erythema Oral: Moist Mucosa Neck: Supple, No JVD, Negative Carotid Bruits Lungs: Clear to auscultation, Normal air movement Cardiovascular: Regular rate, Regular Rhythm, Normal S1, Normal S2, No murmurs Abdomen: Bowel Sounds Present, Soft, Non Tender, Non-Distended, No Hepato-splenomegaly Extremities: No edema Skin: No rashes, No breakdown Musculoskeletal: No Tenderness to Palpation of Joints or Extremities Lymphatic: No Cervical, Supraclavicular, or Inguinal Adenopathy Neurological: Cranial nerves II-XII grossly intact, Neuro grossly intact Psych/Mental Status: Normal Affect, Appropriate - Physical Exam Vital Signs Temp Pulse Resp BP Pulse Ox 98.1 F 61 14 105/82 H 97 02/10/18 03:23 02/10/18 03:23 02/10/18 03:23 02/10/18 03:23 02/10/18 07:02 Oxygen Delivery Method Room Air Weight: 74.191 kg Body Mass Index (BMI) 28.7 Intake and Output for Last 24 Hours Intake Total 3935 / 3935 1960 / 1960 900 / 900 Output Total 1100 / 1100 500 / 500 Balance 2835 / 2835 1460 / 1460 900 / 900 Microbiology Past 72 Hours 02/08/18 10:10 Nasal Screen MRSA/MSSA - Final Swab (Method) Discharge Diet: No Restrictions Discharge Activity: Return to Normal Activity Home Medications: Medications to take at Discharge Inulin/Chromium Picolinate [Fiber Gummies] 1 tab PO DAILY 02/08/18 Ciprofloxacin HCl/Dexameth [Ciprodex Otic Suspension] 4 drop OT BID #1 bottle 02/10/18 Ibuprofen [Motrin] 400 mg PO Q8H PRN tablet 02/10/18 levoFLOXacin tablet [Levaquin tablet] 500 mg PO DAILY@0600 #10 tablet 02/10/18 Following Prescrptions Were Given to Patient: levoFLOXacin tablet [Levaquin tablet] 500 mg PO DAILY@0600 #10 tablet Ciprofloxacin HCl/Dexameth [Ciprodex Otic Suspension] 4 drop OT BID #1 bottle Primary Care Physician: Marlon Luz MD [NON-STAFF] - Please follow up with your Primary Care Physician in: within 1-2 weeks Please Follow Up With: Len Wiley MD When: in 1 week Disposition: Home Minutes spent on discharge:: 40 Patient Condition:: Stable Medical Necessity - Tobacco Use Smoking Status: Current every day smoker Tobacco Use: Cigarettes Meaningful Use Info Meaningful Use Diagnoses (Choose all that apply): None applicable Code Visit Inpatient E AND M: 78446 Disch Hosp 02/10/18 1338 <Electronically signed by Mikayla Jiménez MD> Date Mikayla Jiménez MD Cosigner Signature (if applicable): Date CC: No Primary Care Physician; Mikayla Jiménez MD Signed DISCHARGE INSTRUCTION Observed: 02/10/2018 Status: F Source: [place] 9:23 [facility] REPOSITORY [facility] Medical Records Department [address] [place] [address] Instructions for Home/Discharge Instructions 02/10/18920 MR#: [id number] Acct: [id number] Name: PETE SMITH Rep #: [id number] : 1980 37 From: Mikayla Jiménez MD PCP: Care Physician, No Primary Status: ADM IN - Discharge Diagnoses Current Active Problems: Current Active and Chronic Problems Otitis media (Acute) Mastoiditis (Acute) Reason(s) for Visit for Discharge Instructions: Right ear pain You will use the following diet at home:: Regular Your food should be the consistency of: Regular Your liquids should be the consistency of: Regular/Thin Discharge Activity: Return to Normal Activity Additional Instructions: Complete your antibiotics. Follow- up with ENT within 2 weeks Allergies/Adverse Reactions: Allergies hydromorphone HCl [From Dilaudid] Allergy (Severe, Verified 02/08/18 00:35) Anaphylaxis aspirin [From Percodan] Allergy (Intermediate, Verified 02/08/18 00:35) Swelling oxycodone terephthalate [From Percodan] Allergy (Intermediate, Verified 02/08/18 00:35) Swelling amoxicillin Allergy (Verified 02/08/18 00:35) Hives azithromycin Allergy (Verified 02/08/18 00:35) Other erythromycin base Allergy (Verified 02/08/18 00:35) Hives oxycodone HCl [From Percocet] Allergy (Verified 02/08/18 00:35) Anaphylaxis propoxyphene napsylate [From Darvocet-N] Allergy (Verified 02/08/18 00:35) Other Sulfa (Sulfonamide Antibiotics) Allergy (Verified 02/08/18 00:35) Other tramadol Allergy (Verified 02/08/18 00:35) Hives gabapentin Adverse Reaction (Verified 02/08/18 00:35) Other Medications to take at Discharge Inulin/Chromium Picolinate [Fiber Gummies] 1 tab PO DAILY 02/08/18 Ciprofloxacin HCl/Dexameth [Ciprodex Otic Suspension] 4 drop OT BID #1 bottle 02/10/18 Ibuprofen [Motrin] 400 mg PO Q8H PRN tablet 02/10/18 levoFLOXacin tablet [Levaquin tablet] 500 mg PO DAILY@0600 #10 tablet 02/10/18 The following prescriptions were given: levoFLOXacin tablet [Levaquin tablet] 500 mg PO DAILY@0600 #10 tablet Ciprofloxacin HCl/Dexameth [Ciprodex Otic Suspension] 4 drop OT BID #1 bottle Primary Care Physician: Marlon Luz MD [NON-STAFF] - Please follow up with your Primary Care Physician in: within 1-2 weeks Test Results: Test results from this visit will be discussed in further detail at your follow-up appointment, if applicable. Please Follow Up With: Len Wiley MD When: in 1 week Proposed Discharge Date: 02/10/18 02/10/18 0923 <Electronically signed by Mikayla Jiménez MD> Date Mikayla Jiménez MD CC: No Primary Care Physician; Romario Langley MD; Sherwin Mitchell MD CONSULTATION Observed: 02/08/2018 Status: F Source: [place] 12:31 PM [facility] REPOSITORY [facility] Medical Records Department [address] [place] [address] Consultation 02/08/18 1221 MR#: [id number] Acct: [id number] Name: PETE SMITH Rep #: [id number] : 1980 37 From: Romario Langley MD PCP: Care Physician, No Primary Status: ADM SLAO Y Location: [facility] [place] [id number] Problem List (1) Mastoiditis Status: Acute (2) Otitis media Status: Acute Reason for Consult Date of Consultation: 02/08/18 Reason for Consultation: mastoiditis History of Present Illness: The patient is a 37 year old F who was admitted to the emergency department for acute onset of severe right-sided ear pain. She reports that she was at work where she suffered a sudden onset of a sharp stabbing ear pain on the right side without a precipitating event. During her hospitalization this has improved somewhat but the pain continues to radiate down along her jaw and right side of the neck. She denies prior history of ear surgery, ear disease, or infection. I reminded her that her admission note states prior treatment of that ear but she states this was distant and prior to delivery of her son many years ago. She does admit to possible water exposure to that ear prior to the onset of this pain complaint. She denies recent illness or sick contacts. She reports the intravenous antibiotic medication seems to be resulting in some improvement. She reports that the pain is severe and stabbing in nature on the right side. She denies any drainage from the ear or significant hearing loss or dizziness. [] Past Medical History Past Medical History (Chronic Problems): Chronic Problems History of small bowel obstruction (Chronic) History of multiple abdominal surgeries (Chronic) Allergies hydromorphone HCl [From Dilaudid] Allergy (Severe, Verified 02/08/18 00:35) Anaphylaxis aspirin [From Percodan] Allergy (Intermediate, Verified 02/08/18 00:35) Swelling oxycodone terephthalate [From Percodan] Allergy (Intermediate, Verified 02/08/18 00:35) Swelling amoxicillin Allergy (Verified 02/08/18 00:35) Hives azithromycin Allergy (Verified 02/08/18 00:35) Other erythromycin base Allergy (Verified 02/08/18 00:35) Hives oxycodone HCl [From Percocet] Allergy (Verified 02/08/18 00:35) Anaphylaxis propoxyphene napsylate [From Darvocet-N] Allergy (Verified 02/08/18 00:35) Other Sulfa (Sulfonamide Antibiotics) Allergy (Verified 02/08/18 00:35) Other tramadol Allergy (Verified 02/08/18 00:35) Hives gabapentin Adverse Reaction (Verified 02/08/18 00:35) Other Home Medications: Ambulatory Orders Medication Instructions Recorded Inulin/Chromium Picolinate [Fiber 1 tab PO DAILY 02/08/18 Gummies] Surgical History: hysterectomy, - - Small bowel reconstruction Lives: - - Lives with a friend. Smoking Status: Current every day smoker Tobacco Use: Cigarettes Alcohol: None - *Family History Paternal History Items: Cancer, Diabetes, - - luekemia, strokes. Maternal History Items: Cancer Review of Systems Constitutional: Denies: Anorexia, Chills, Fever Eyes: Denies: Blurred vision, Cataracts HEENT: Reports: Ear Pain. Denies: Difficulty Hearing, Difficulty Swallowing, Dysphasia, Eye Pain, Hard of Hearing, Head Aches, Post Nasal Drip, Sinus Congestion, Sinus Drainage, Sore Throat Cardiovascular: Denies: Chest Pain, Chest Pressure Respiratory: Denies: Cough, Hemoptysis Gastrointestinal: Denies: Abdominal Pain Genitourinary: Denies: Dysuria Musculoskeletal: Denies: Arm Pain, Back Pain Neurological: Denies: Balance problems, Blurred vision, Double vision Psychiatric: Denies: Anxiety, Depression Hematologic/ Lymphatic: Denies: Adenopathy Patient Problems: Active and Suspected Problems Otitis media (Acute) Mastoiditis (Acute) Subjective: Patient is found in her bed with her eyes closed with the intravenous nurse at bedside for her blood draw. When introduced she does acknowledge my presence but is reluctant to open her eyes. She is otherwise conversant and cooperative. Objective: Patient at the bedside is somewhat abnormal in her interpersonal affect but is otherwise cooperative with examination and provision of her history. Examination of the right ear does show inflammation and granulation tissue of the tympanic membrane but no sixto discharge or drainage or canal stenosis. There is no redness erythema or fluctuance over the mastoid tip. Palpation of the parotid and sternocleidomastoid on the right side is reported as exquisitely tender however there is no erythema fluctuance discharge or adenopathy. - Physical Exam General: Alert, Oriented x3, Cooperative, No apparent distress HEENT: Atraumatic, PERRLA, EOMI, Normocephalic, EAC Clear, - - Granulation tissue of the right tympanic membrane Oral: Moist Mucosa, - - Poor nutrition with dental caries Neck: Supple, Trachea Midline, - Lungs: Normal air movement Cardiovascular: Regular rate, Regular Rhythm Skin: No rashes, No breakdown Lymphatic: - Psych/Mental Status: Flat Affect, Alert and oriented to time, place, person, mood and affect Vital Signs Temp Pulse Resp BP Pulse Ox 99.4 F H 79 18 93/54 L 100 02/08/18 11:10 02/08/18 11:10 02/08/18 11:10 02/08/18 11:10 02/08/18 11:10 Oxygen Delivery Method Room Air Weight: 74.191 kg Body Mass Index (BMI) 28.7 Intake and Output for Last 24 Hours Intake Total 2123 / 2123 Output Total 500 / 500 Balance 1623 / 1623 Laboratory Tests Past 24 Hrs Assessment/Plan All Active Problems Otitis media (Acute) Mastoiditis (Acute) Obesity (BMI 30-39.9) (Acute) Ileus (Acute) This patient is a 37-year-old with acute onset of right ear pain admitted for possible mastoiditis and acute otitis media. On clinical examination she does have granulation and inflammation of the right tympanic membrane. Her CT scan is reviewed which shows thickening of the tympanic membrane and the attic consistent with possible cholesteatoma and middle ear disease. The mastoid air cells are well aerated without bony breakdown fluid collection or swelling or induration of the soft tissues and this would not suggest significant mastoid disease. She does have prediabetic condition which increases her risk for invasive infection of the ear canal or middle ear space. Continued broad-spectrum antibiotic coverage particularly for possible pseudomonal infection is advised. I would suggest addition of another topical antibiotic such as a titi quinolone with a steroid for both topical coverage and relief of her pain. Follow-up as an outpatient is advised for further evaluation of the response to therapy the tympanic membrane and possibility of cholesteatoma of the middle ear cleft. I discussed with her at the bedside that APAP be to see her for this follow-up care although as she has a distant history with the [facility] she may see them as well if she would prefer. There does not seem to be any other need for acute surgical intervention and as there is no ear canal swelling or discharge no further instrumentation of the ear appears to be warranted. 02/08/18 1231 <Electronically signed by Romario Langley MD> Date Romario Langley MD Cosigner Signature (if applicable): Date CC: No Primary Care Physician; Romario Langley MD; Sherwin Mitchell MD Signed BASIC METABOLIC Collected: 02/08/2018 Status: F Source: GURPREET PROFILE (BMP) 12:15 PM [facility] REPOSITORY TYPE CODE TESTS RESULT OUT OF RANGE REFERENCE UNITS LAB L501.0100 74-106 mg/dL High GLU 112 Result Comment: Fasting Glucose result from 100 to 125 mg/dL suggests IMPAIRED HOMEOSTASIS per A.D.A. criteria. Please note revised GLUCOSE reference range effective 2017. LAB L501.1000 7-18 mg/dL Normal BUN 15 LAB L501.1100 0.55-1.02 mg/dL Normal CREAT,SERUM 1.01 Result Comment: The validity of the calculated GFR AND GFRAA in patients over 70 years has not been determined. Clinical correlation is essential. LAB L501.1110 >60 mL/min Normal EST GFR 65 Result Comment: Non- GFR Calc LAB L501.1115 >60 mL/min Normal EST GFR - AA 79 Result Comment: GFR Calc LAB L501.1255 ml/min Normal Estimated CRCL 62.47 LAB L501.1300 10-20 RATIO Normal BUN/CRE 14.9 LAB L501.2200 8.5-10 mg/dL Low .1 CA 8.2 LAB L501.5300 136-14 mmol/L Normal 5 NA 144 LAB L501.5600 3.5-5. mmol/L Normal 1 K 4.2 LAB L501.5900 98-107 mmol/L High CL 109 LAB L501.6100 21.0-3 mmol/L Normal 2.0 CO2 27.0 LAB L501.6200 5-15 Normal GAP 8 Performed By: #### L500.2500 #### [facility] [address] [place], [address] Observed: 02/08/2018 Status: F Source: [place] MRSA/SAID SCREEN 10:10 AM [facility] REPOSITORY Comments: nares MRSA/SAID SCRN S. AUREUS S. aureus Negative MRSA MRSA Negative Performed By: #### M100.651 #### [facility] [address] [facility] [place], [address] MANDIBLE MIN 4 VIEWS Observed: 02/08/2018 Status: F Source: [place] 9:58 AM [facility] REPOSITORY [facility] Imaging Services [address] [place] [id number] Mandible Min 4 Views MR#: [id number] Acct: [id number] Name: PETE SMITH Rep #: [id number] : 1980 F 37 From: Kali Luque MD PCP: Care Physician, No Primary Status: ADM SALO Study: Mandible Min 4 Views Date of Exam: 02/08/18 Exam# [id number] Ordering Dr: Sherwin Mitchell MD STUDY: X-RAY - MANDIBLE (COMPLETE) REASON FOR EXAM: Female, 37 years old. Acute right otomastoiditis. TECHNIQUE: 6 view(s) of the mandible were obtained. COMPARISON: None. FINDINGS: Normal mandible. Normal visualized right temporomandibular joint. Normal visualized left temporomandibular joint. The remaining visualized osseous structures are normal. The soft tissue structures are unremarkable. RAD/Mandible Min 4 Views IMPRESSION: Normal x-ray examination of the mandible. Electronically Signed: Kali Luque MD at 12:20 EDT Tel [phone], Service support , CC: No Primary Care Physician; Sherwin Mitchell MD [employer]bor [employer] Operator: Signed CONSULTATION Observed: 02/08/2018 Status: F Source: [place] 9:57 AM [facility] Medical Records Department [address] [place] [address] Consultation 02/08/18 0953 MR#: [id number] Acct: [id number] Name: PETE SMITH Rep #: [id number] : 1980 37 From: Sherwin Mitchell MD PCP: Care Physician, No Primary Status: ADM SALO Y Location: [place] [address] Problem List (1) Mastoiditis Status: Acute Reason for Consult: mastoiditis Consulted by: Dr. Smith History of Present Illness: The patient is a 37 year old F with no h/o MRSA infection who presented yesterday with sudden onset of severe, stabbing R ear pain. No fever, no chills, no drainage from her ear. No recent dental problems. No recent abx. Multiple family members sick recently. Came to ED< started on cefepime and vanc. Some head and neck pain, no stiffness. No vision changes. Pain minimally improved today. Full ROS performed and neg except as noted above. - Medical History Past Medical History (Chronic Problems): Chronic Problems History of small bowel obstruction (Chronic) History of multiple abdominal surgeries (Chronic) Allergies/Adverse Reactions: Allergies hydromorphone HCl [From Dilaudid] Allergy (Severe, Verified 02/08/18 00:35) Anaphylaxis aspirin [From Percodan] Allergy (Intermediate, Verified 02/08/18 00:35) Swelling oxycodone terephthalate [From Percodan] Allergy (Intermediate, Verified 02/08/18 00:35) Swelling amoxicillin Allergy (Verified 02/08/18 00:35) Hives azithromycin Allergy (Verified 02/08/18 00:35) Other erythromycin base Allergy (Verified 02/08/18 00:35) Hives oxycodone HCl [From Percocet] Allergy (Verified 02/08/18 00:35) Anaphylaxis propoxyphene napsylate [From Darvocet-N] Allergy (Verified 02/08/18 00:35) Other Sulfa (Sulfonamide Antibiotics) Allergy (Verified 02/08/18 00:35) Other tramadol Allergy (Verified 02/08/18 00:35) Hives gabapentin Adverse Reaction (Verified 02/08/18 00:35) Other Home Medications: Ambulatory Orders Medication Instructions Recorded Inulin/Chromium Picolinate [Fiber 1 tab PO DAILY 02/08/18 Gummies] - Social History Tobacco Use: cigarettes Vital Signs Temp Pulse Resp BP Pulse Ox 98.1 F 63 16 94/53 L 95 02/08/18 03:28 02/08/18 03:28 02/08/18 03:28 02/08/18 03:28 02/08/18 03:35 Oxygen Delivery Method Room Air Weight: 74.191 kg Body Mass Index (BMI) 28.7 Laboratory Tests Past 24 Hrs - Other Studies Radiology: [] reviewed Other Studies: [] Route of nutrition/ use of supplements: [] Nutritional Intake: [] IV Site: [] [place] Catheter: [] - Physical Exam General: Alert, - - uncomfortable HEENT: Atraumatic, PERRLA, EOMI, - - poor dentition, multiple rotten/cracked teeth. R ear very tender, mild redness inside canal Neck: Supple, No Nodes Lungs: Clear to auscultation, Normal air movement Cardiovascular: Regular rate, Regular Rhythm Abdomen: Soft, Non Tender, Non-Distended Extremities: No edema Skin: No rashes IV Site: Peripheral, without redness Musculoskeletal: No Tenderness to Palpation of Joints or Extremities Neurological: Cranial nerves II-XII grossly intact - Assessment/Plan Antibiotics: [] Assessment/Plan: [] Active and Suspected Problems Otitis media (Acute) Mastoiditis (Acute) R ear acute mastoiditis - ENT to see. Order MRSA screen. No purulence draining. On vanc/cefepime. Will order panorex due to poor dentition. Will follow, thank you. 02/08/18 0957 <Electronically signed by Sherwin Mitchell MD> Date Sherwin Mitchell MD Cosigner Signature (if applicable): Date CC: No Primary Care Physician; Romario Langley MD; Sherwin Mitchell MD Signed CBC W/DIFF, AUTOMATED Collected: 02/08/2018 Status: F Source: [place] 6:34 AM [facility] REPOSITORY TYPE CODE TESTS RESULT OUT OF RANGE REFERENCE UNITS LAB L100.1000 4.4-11.0 K/mm3 Normal WBC 8.0 LAB L100.1200 4.2-5.4 M/mm3 Normal RBC 4.67 LAB L100.1300 12.0-15.0 g/dl Normal HGB 13.6 LAB L100.1400 37-47 % Normal HCT 43.7 LAB L100.1500 81-99 fL Normal MCV 93.6 LAB L100.1600 27.0-32.0 pg Normal MCH 29.1 LAB L100.1700 32-36 g/gl Low MCHC 31.1 LAB L100.1810 11.6-14.6 % Normal RDW CV 13.8 LAB L100.1820 35.1-43.9 fl High RDW SD 45.1 LAB L100.1900 150-450 K/mm3 Low PLT 142 LAB L100.2000 6.2-12.0 fl Normal MPV 9.8 LAB L100.2100 47-70 % High NEUT% 83.5 LAB L100.2200 19-41 % Low LY% 11.6 LAB L100.2300 0-10 % Normal MONO% 4.0 LAB L100.2400 0-5 % Normal EO% 0.5 LAB L100.2500 0-1 % Normal BASO% 0.2 LAB L100.2550 0.0-0.9 % Normal IM GRAN % 0.200 Result Comment: IG% - Immature Granulocytes (promyelocytes, myelocytes and metamyelocytes) > 1% indicates that a LEFT SHIFT is Present. LAB L100.2620 2.0-7.7 X10 3/uL Normal Absolute Neut 6.7 LAB L100.2720 0.83-4.51 X10 3/ul Normal Absolute Lymph 0.93 Performed By: #### L100.0100 #### [facility] [address] [place], [address] BASIC METABOLIC Collected: 02/08/2018 Status: F Source: GURPREET PROFILE (BMP) 6:34 AM [facility] REPOSITORY TYPE CODE TESTS RESULT OUT OF RANGE REFERENCE UNITS LAB L501.0100 74-106 mg/dL High GLU 117 Result Comment: Fasting Glucose result from 100 to 125 mg/dL suggests IMPAIRED HOMEOSTASIS per A.D.A. criteria. Please note revised GLUCOSE reference range effective 2017. LAB L501.1000 7-18 mg/dL Normal BUN 14 LAB L501.1100 0.55-1.02 mg/dL Normal CREAT,SERUM 0.88 Result Comment: The validity of the calculated GFR AND GFRAA in patients over 70 years has not been determined. Clinical correlation is essential. LAB L501.1110 >60 mL/min Normal EST GFR 77 Result Comment: Non- GFR Calc LAB L501.1115 >60 mL/min Normal EST GFR - AA 93 Result Comment: GFR Calc LAB L501.1255 ml/min Normal Estimated CRCL 71.70 LAB L501.1300 10-20 RATIO Normal BUN/CRE 16.0 LAB L501.2200 8.5-10 mg/dL Low .1 CA 8.0 LAB L501.5300 136-14 mmol/L Normal 5 NA 140 LAB L501.5600 3.5-5. mmol/L Normal 1 K 3.8 LAB L501.5900 98-107 mmol/L High CL 114 LAB L501.6100 21.0-3 mmol/L Low 2.0 CO2 16.0 LAB L501.6200 5-15 Normal GAP 10 Performed By: #### L500.2500 #### [facility] [address] [place], [address] HISTORY AND PHYSICAL Observed: 02/08/2018 Status: F Source: GURPREET EXAM 1:15 AM [facility] REPOSITORY [facility] Medical Records Department [address] [place] [address] History and Physical 02/07/18 2315 MR#: [id number] Acct: [id number] Name: PETE SMITH Rep #: [id number] : 1980 37 From: George Smith MD PCP: Care Physician, No Primary Status: ADM SALO Y Location: MS3 [id number] Problem List (1) Otitis media Status: Acute (2) Mastoiditis Status: Acute History of Present Illness Date of Admission: 02/07/18 Chief Complaint: right ear pain The patient is a 37 year old F with a significant history of prediabetes who presents because of persistent sharp pain of her right ear that began on the day of admission. The pain radiates to her right shoulder and onto her neck. Patient tried Tylenol; peroxide and hot compresses without any real relief. She reports that hot drink helps her pain somewhat also not opening her mouth improves her pain. Her pain is exacerbated by talking and by moving. Past Medical History Past Medical History (Chronic Problems): Chronic Problems History of small bowel obstruction (Chronic) History of multiple abdominal surgeries (Chronic) Allergies hydromorphone HCl [From Dilaudid] Allergy (Severe, Verified 02/07/18 20:46) Anaphylaxis aspirin [From Percodan] Allergy (Intermediate, Verified 02/07/18 20:46) Swelling oxycodone terephthalate [From Percodan] Allergy (Intermediate, Verified 02/07/18 20:46) Swelling amoxicillin Allergy (Verified 02/07/18 20:46) Hives azithromycin Allergy (Verified 02/07/18 20:46) Other erythromycin base Allergy (Verified 02/07/18 20:46) Hives oxycodone HCl [From Percocet] Allergy (Verified 02/07/18 20:46) Anaphylaxis propoxyphene napsylate [From Darvocet-N] Allergy (Verified 02/07/18 20:46) Other Sulfa (Sulfonamide Antibiotics) Allergy (Verified 02/07/18 20:46) Other tramadol Allergy (Verified 02/07/18 20:46) Hives gabapentin Adverse Reaction (Verified 02/07/18 20:46) Other Home Medications: Ambulatory Orders Medication Instructions Recorded Inulin/Chromium Picolinate [Fiber 1 tab PO DAILY 02/08/18 Gummies] Surgical History: hysterectomy, - - Small bowel reconstruction Lives: - - Lives with a friend. Smoking Status: Current every day smoker Tobacco Use: Cigarettes Alcohol: None - *Family History Paternal History Items: Cancer, Diabetes, - - luekemia, strokes. Maternal History Items: Cancer Review of Systems Constitutional: Denies: Chills, Fever, Weight Change HEENT: Denies: Head Aches, Sinus Congestion, Sinus Drainage Cardiovascular: Denies: Chest Pain, Palpitations Respiratory: Denies: Cough, Shortness of breath at rest, Sputum production Gastrointestinal: Denies: Abdominal Pain, Nausea, Vomiting Genitourinary: Denies: Dysuria Musculoskeletal: Denies: Joint Pain, Joint Tenderness Skin: Denies: Rash, Wounds Neurological: Denies: Numbness, Tingling, Focal weakness Psychiatric: Denies: Anxiety, Depression, Homicidal Ideations, Suicidal Ideations Hematologic/ Lymphatic: Denies: Easy Bruising, Easy Bleeding VTE Information - Inpt Only VTE Present on Admission: No VTE Mechan Device Prophylaxis: None VTE Pharm Prophylaxis ordered?: Yes Patient Problems: Active and Suspected Problems Otitis media (Acute) Mastoiditis (Acute) - Physical Exam General: Alert, Oriented x3, Cooperative HEENT: Atraumatic, PERRLA, EOMI, Normocephalic, - - Tympanic membrane with redness and mabry discharge on right side. Tender right ear and right mastoid area. Neck: Supple, No JVD, Negative Carotid Bruits Lungs: Clear to auscultation, Normal air movement Cardiovascular: Regular rate, No murmurs Abdomen: Bowel Sounds Present, Soft, Non Tender Extremities: No edema, Capillary Refill Less than 3 Seconds Skin: No rashes, No breakdown Musculoskeletal: No Tenderness to Palpation of Joints or Extremities Neurological: Cranial nerves II-XII grossly intact Psych/Mental Status: Normal Affect, Appropriate Vital Signs Temp Pulse Resp BP Pulse Ox 97.2 F L 92 16 119/82 H 97 02/07/18 20:46 02/07/18 20:46 02/07/18 20:46 02/07/18 20:46 02/07/18 20:46 Oxygen Delivery Method Room Air Weight: 77.1 kg Body Mass Index (BMI) 30.1 Laboratory Tests Past 24 Hrs WBC 8.6 RBC 4.71 Hgb 14.1 Hct 42.7 MCV 90.7 MCH 29.9 MCHC 33.0 Assessment/Plan All Active Problems Otitis media (Acute) Mastoiditis (Acute) Obesity (BMI 30-39.9) (Acute) Ileus (Acute) The patient is a 37 year old F with a significant history of tobacco abuse; and prediabetes who presents with persistent sharp pain of her right ear; right external ear tenderness; redness and discharge of TM; and tender mastoid area consistent with acute R otitis media with otitis external and mastoiditis. Acute right otitis media with otitis external and mastoiditis. Review of labs shows normal white count. Patient received vancomycin and cefepime at emergency department. Patient is allergic to penicillin. Vancomycin and cefepime continued. Reportedly patient is having itchiness in the setting of antibiotic use. As needed Benadryl ordered. ENT and infectious disease consulted to optimize management. Patient reports that in the past she saw Dr. Shar Wiley, ENT for left ear infection; and she had wick placed at that time in her left ear. We will trend CBC and BMP. Mechanical soft diet ordered. Patients with hyperchloremia and high normal sodium; anticipating decrease intake due to pain in right ear;half-normal saline ordered As needed Toradol and morphine ordered. Tobacco abuse Patient declined nicotine patch Counselled. Inpatient consult for smoking cessation. DVT prophylaxis subcutaneous lovenox Code Visit OBSV E AND M: [id number] Initial observation care L2 02/08/18 0115 <Electronically signed by George Smith MD> Date George Smith MD Cosigner Signature: Date (if applicable) CC: No Primary Care Physician; George Smith MD Signed EMERGENCY DEPARTMENT Observed: 02/08/2018 Status: F Source: [place] SUMMARY 12:13 AM [facility] REPOSITORY [facility] Medical Records Department [address] [place] [address] Emergency Department Summary 02/07/18 2102 MR#: [id number] Acct: [id number] Name: PETE SMITH Rep #: [id number] : 1980 37 From: Kerry Ramirez MD PCP: Care Physician, No Primary Status: ADM SALO - ER Visit Summary Date of Service: 02/07/18 Chief Complaint: Right ear pain History of Present Illness: The patient is a 37 F who presents for 1 day of severe right ear pain. Patient states she woke up with dull pain that became gradually more severe during the day. Pain now involves her jaw, behind the ear, the right neck, and radiates into the right shoulder. Patient denies fever. She is tried Tylenol without any improvement. She is now feeling nauseated secondary to the pain. No cough, chest pain, abdominal pain, vomiting. Patient is status post hysterectomy. She denies any prior history of pain this severe but has had right ear pain in the past. Physical Examination: Vital signs: afebrile, hemodynamically stable, no hypoxia on room air General: well nourished, well developed, in no distress, appears uncomfortable Skin: warm, dry, no rash, no pallor HEENT: normocephalic and atraumatic; PERRL, EOMI, moist mucous membranes, posterior oropharyngeal erythema noted, pain with opening of the mouth, right TM is dull, bulging, erythematous, external ear canal has exudate and swelling, tenderness over the mastoid, tenderness over the right anterior and posterior neck, full range of motion, no meningismus Cardiovascular: regular rate and rhythm without murmurs, no peripheral edema Respiratory: No increased work of breathing MSK: Moves all extremities, no deformities, normal strength Neuro: Awake and alert, oriented 4. No facial droop, sensation and motor function intact and symmetric Test Results: Abnormal Lab Results WBC 8.6 RBC 4.71 Hgb 14.1 Hct 42.7 MCV 90.7 MCH 29.9 MCHC 33.0 Medications Given Cefepime HCl 2 gm/ Sodium (Chloride) 100 mls @ 200 mls/hr IV X1 ONE Stop: 02/07/18 22:50 Vancomycin HCl 2,000 mg/ (Dextrose) 540 mls @ 250 mls/hr IV X1 ONE Stop: 02/08/18 00:39 Discontinued Medications Ketorolac Tromethamine (Toradol) 15 mg IV X1 ONE Stop: 02/07/18 21:02 Last Admin: 02/07/18 21:20 Dose: 15 mg Morphine Sulfate () 4 mg IV X1 ONE Stop: 02/07/18 22:23 Ondansetron HCl (Zofran) 4 mg IV X1 ONE Stop: 02/07/18 22:23 Clinical Impression(s) from Imaging Studies CT Orbit Sella Inner 02/07/18 21:06 IMPRESSION: Findings consistent with right otomastoiditis. Cannot exclude possibility of coexisting cholesteatoma. Electronically Signed: Remy Holloway MD at 22:16 EDT , Service support , Emergency Department Course and Treatment: Patient presents with severe right-sided ear pain, and has no findings of rash concerning for zoster. Because of the severe pain, including mastoid tenderness, workup was performed to evaluate for possible mastoiditis. Patient was given Toradol IV for pain without any relief. Labs showed no leukocytosis. CT of the right mastoid was performed and was consistent with right otomastoiditis with possibility of coexisting cholesteatoma. Patient was started on IV vancomycin and cefepime. She was given morphine and Zofran for further pain control. Patient will be admitted for further valuation and treatment of acute otomastoiditis. She was discussed with the hospitalist for admission. Treatment Plan: [] Disposition: [] Impression: Acute right otomastoiditis This note was generated with [employer]42 dictation software. It may contain incorrect words, spelling, and punctuation that were not noted in review of the chart prior to signing ED Disposition - Plan for ED Patient: Chief Complaint: Ear Problem Referrals: Marlon Luz MD [NON-STAFF] - What to do if you have Problems For any increased pain, shortness of breath, bleeding, nausea or vomiting, chest pain, or any unexpected problems, contact your Primary Care Provider. Call [facility] ([phone]) or report to the closest Emergency Room. Call 911 if necessary. 02/08/18 0013 <Electronically signed by Kerry Ramirez MD> Date Kerry Ramirez MD Cosigner Signature (If Indicated): Date CC: No Primary Care Physician CBC W/DIFF, AUTOMATED Collected: 02/07/2018 Status: F Source: GURPREET 9:25 PM [facility] REPOSITORY TYPE CODE TESTS RESULT OUT OF RANGE REFERENCE UNITS LAB L100.1000 4.4-11.0 K/mm3 Normal WBC 8.6 LAB L100.1200 4.2-5.4 M/mm3 Normal RBC 4.71 LAB L100.1300 12.0-15.0 g/dl Normal HGB 14.1 LAB L100.1400 37-47 % Normal HCT 42.7 LAB L100.1500 81-99 fL Normal MCV 90.7 LAB L100.1600 27.0-32.0 pg Normal MCH 29.9 LAB L100.1700 32-36 g/gl Normal MCHC 33.0 LAB L100.1810 11.6-14.6 % Normal RDW CV 13.8 LAB L100.1820 35.1-43.9 fl High RDW SD 45.1 LAB L100.1900 150-450 K/mm3 Normal PLT 256 LAB L100.2000 6.2-12.0 fl Normal MPV 10.3 LAB L100.2100 47-70 % Normal NEUT% 64.4 LAB L100.2200 19-41 % Normal LY% 27.4 LAB L100.2300 0-10 % Normal MONO% 4.9 LAB L100.2400 0-5 % Normal EO% 2.5 LAB L100.2500 0-1 % Normal BASO% 0.6 LAB L100.2550 0.0-0.9 % Normal IM GRAN % 0.200 Result Comment: IG% - Immature Granulocytes (promyelocytes, myelocytes and metamyelocytes) > 1% indicates that a LEFT SHIFT is Present. LAB L100.2620 2.0-7.7 X10 3/uL Normal Absolute Neut 5.6 LAB L100.2720 0.83-4.51 X10 3/ul Normal Absolute Lymph 2.37 Performed By: #### L100.0100 #### [facility] [address] [place], [address] BASIC METABOLIC Collected: 02/07/2018 Status: F Source: GURPREET PROFILE (BMP) 9:25 PM [facility] REPOSITORY TYPE CODE TESTS RESULT OUT OF RANGE REFERENCE UNITS LAB L501.0100 74-106 mg/dL High GLU 109 Result Comment: Slight Lipemia, Result may be falsely increased. Fasting Glucose result from 100 to 125 mg/dL suggests IMPAIRED HOMEOSTASIS per A.D.A. criteria. Please note revised GLUCOSE reference range effective 2017. LAB L501.1000 7-18 mg/dL Normal BUN 12 Result Comment: Slight Lipemia, Result may be falsely increased. LAB L501.1100 0.55-1.02 mg/dL CREAT,SERUM Normal 0.81 Result Comment: Slight Lipemia, Result may be falsely increased. The validity of the calculated GFR AND GFRAA in patients over 70 years has not been determined. Clinical correlation is essential. LAB L501.1110 >60 mL/min Normal EST GFR 84 Result Comment: Non- GFR Calc LAB L501.1115 >60 mL/min Normal EST GFR - AA 102 Result Comment: GFR Calc LAB L501.1255 ml/min Normal Estimated CRCL 77.90 LAB L501.1300 10-20 RATIO Normal BUN/CRE 14.9 LAB L501.2200 8.5-10 mg/dL Normal .1 CA 8.7 Result Comment: Slight Lipemia, Result may be falsely increased. LAB L501.5300 136-145 mmol/L Normal NA 145 LAB L501.5600 3.5-5.1 mmol/L Normal K 3.8 Result Comment: Moderate Hemolysis, Result may be falsely increased.-Slight Lipemia, Result may be falsely increased. LAB L501.5900 98-107 mmol/L High CL 110 LAB L501.6100 21.0-32.0 mmol/L Normal CO2 30.0 Result Comment: Slight Lipemia, Result may be falsely increased. LAB L501.6200 5-15 Normal GAP 5 Performed By: #### L500.2500 #### [facility] [address] [place], [address] ORB SELLA POST Observed: 02/07/2018 Status: F Source: GURPREET FOSSA EAR W/O 9:07 PM [facility] REPOSITORY [facility] Imaging Services [address] [place] [address] Orb Sella Post Fossa Ear w/o MR#: [id number] Acct: [id number] Name: PETE SMITH Rep #: [id number] : 1980 F 37 From: Remy Holloway MD PCP: Care Physician, No Primary Status: REG ER Study: Orb Sella Post Fossa Ear w/o Date of Exam: 02/07/18 Exam# [id number] Ordering Dr: Kerry Ramirez MD ADDENDUM by Remy Holloway MD on 02/07/18 at 7931 ADDENDUM ADDENDUM: Please note technique should state CT of the right ear was performed in the axial plane Electronically Signed: Remy Holloway MD at 22:17 EDT , Service support , 02/07/182216 Date cc: No Primary Care Physician; Kerry Ramirez MD * Signed ADDENDUM by Remy Holloway MD on 02/07/[address]/Orb Sella Post Fossa Ear w/o 02/07/182223 Date cc: No Primary Care Physician; Kerry Ramirez MD * Signed CT of the IACs/temporal bone INDICATION: Right ear infection TECHNIQUE: CT of the right ureter was performed without contrast the axial plane followed by sagittal and coronal reconstructions. Radiographic technique was optimized to limit patient radiation dose. DLP was 899.25 FINDINGS: There is soft tissue thickening of the posterior superior wall of the right external auditory canal with mild retraction of the tympanic membrane. There is involvement of the [place] septum and possibility of cholesteatoma cannot be excluded. There is soft tissue thickening which appears to be contiguous with the malleus There is also soft tissue thickening within the posterior medial tympanic cavity contiguous with the cochlea. There is also focal involvement of the anterior medial mastoid air cell complex. CT/Orb Sella Post Fossa Ear w/o IMPRESSION: Findings consistent with right otomastoiditis. Cannot exclude possibility of coexisting cholesteatoma. Electronically Signed: Remy Holloway MD at 22:16 EDT , Service support , CC: No Primary Care Physician; Kerry Ramirez MD [employer] Operator: Signed PROGRESS Observed: 09/16/2017 Status: COMPLETED Source: [place] 8:30 AM [facility] REPOSITORY HNO ID: [id number] Author: Isabella Hendricks (Pa) Service: (none) Author Type: Physician Chief Dietitian Type: Progress Notes Filed: 09/16/2017 8:38 AM Note Text: Subjective HPI Pt presents with the chief complaint of fingernail pain. She had smashed the finger 4 months ago in a door. Over the past month it has started to peel on the nail at the base and gets caught of things. No redness. No discharge. No pain with moving the finger, she has pain when she brushes the fingernail on things. Review of Systems Musculoskeletal: Right fifth fingernail pain All other systems reviewed and are negative. PAST MEDICAL HISTORY Diagnosis Date - Bowel obstruction (HCC) April 2009 and Bowel Rupture - Chronic abdominal pain 05/22/2011 - History of recurrent miscarriages - Hyperlipidemia - PMH - PAST MEDICAL HISTORY OF Tubal x2 Current Outpatient Prescriptions: albuterol HFA (VENTOLIN HFA) 90 mcg/actuation inhaler INAHLE 2 PUFFS EVERY FOUR HOURS NEEDED (Patient not taking: Reported on 09/16/2017 ) Disp: 18 g Rfl: 5 estradiol (ESTRACE) 2 mg tablet Disp: Rfl: fluticasone (FLONASE) 50 mcg/actuation nasal spray Use 2 Sprays in each nostril once daily. (Patient not taking: Reported on 09/16/2017 ) Disp: 1 Bottle Rfl: 0 rosuvastatin (CRESTOR) 40 mg tablet Take 1 tablet by mouth once daily. (Patient not taking: Reported on 09/16/2017 ) Disp: 30 tablet Rfl: 5 No current facility-administered medications for this visit. PAST SURGICAL HISTORY Procedure Laterality Date - APPENDECTOMY - CONSULT TO COLO-RECTAL SURGERY 04/14/2008,04/16/2008 Papi Davis - EXPLORATORY OF ABDOMEN Laparotomy, exp. Adhesiolysis. Abdominal wall resection (mesh included), primary closure. - PAST SURGICAL HISTORY OF Bowel resection - REMOVAL GALLBLADDER Cholecystectomy - REMOVAL OF OVARY(S) just one left ovary and both tubes - REMOVAL OF OVARY(S) 2007 dr. del davis right ovary - TOTAL ABDOM HYSTERECTOMY 09/2005 after vag delivery-hemorrhage, AT/WB FAMILY HISTORY Problem Relation Age of Onset - Cancer Paternal Grandfather PROSTATE - Stroke Maternal Grandmother - Diabetes Maternal Grandmother - Coronary Artery Disease Maternal Grandmother - Cancer Maternal Grandmother - Cataract Maternal Grandmother - Hypertension Maternal Grandfather - Cataract Maternal Grandfather - Diabetes Father - Hypertension Father - Cataract Father - Diabetes Paternal Grandmother Social History Substance Use Topics - Smoking status: Current Some Day Smoker Packs/day: 0.25 Years: 15.00 Types: Cigarettes - Smokeless tobacco: Never Used Comment: one pack lasts 4 days - Alcohol use No BP 110/68 Pulse 70 Temp 36.2 ?C (97.1 ?F) (Tympanic) Resp 16 Wt 74.4 kg (164 lb) BMI 29.61 kg/m? Objective Physical Exam Constitutional: She is oriented to person, place, and time. HENT: Head: Normocephalic and atraumatic. Cardiovascular: Normal rate, regular rhythm and normal heart sounds. Pulmonary/Chest: Effort normal and breath sounds normal. Musculoskeletal: Pt has a small circular portion of the proximal nail the has peeled and new nail is growing underneath. 90% of the old nail is attached to the nailbed. There is no erythema or swelling. An old subungual hematoma is present distally. No signs of infection. No pain with ROM of the MCP PIP or DIP.normal distal sensation. Neurological: She is alert and oriented to person, place, and time. Nursing note and vitals reviewed. ASSESSMENT/PLAN: 1. Injury to fingernail of right hand, initial encounter - ICD9: 959.5, ICD10: S69.91XA The patients nail is still almost completely attached with a small portion having peeled with new nail growing underneath. I did not advise it to be removed at this point with it being attached and no infection. Instructed to wear a bandaid over top if it is getting caught on things. There is nothing to trim off of the nail here either. No sign of a bony injury, this occurred 4 months ago. Instructed to take ibuprofen and ice. Follow up with pcp. MARCELO Arteaga Observed: 09/16/2017 Status: COMPLETED Source: [place] 8:15 AM [facility] REPOSITORY Office Visit (WSTR) PETE SMITH ([id number]) 1980 F Date Time Provider Department 09/16/17 8:15 AM ISABELLA HENDRICKS (TEETEE) WSTR During your visit today, we recorded the following information about you: Temperature Pulse Respiration Blood pressure 97.1 degrees 70/minute 16/minute 110/68 Weight 74.4 kg Isabella Hendricks PA-C 09/16/2017 8:38 AM Signed Subjective HPI Pt presents with the chief complaint of fingernail pain. She had smashed the finger 4 months ago in a door. Over the past month it has started to peel on the nail at the base and gets caught of things. No redness. No discharge. No pain with moving the finger, she has pain when she brushes the fingernail on things. Review of Systems Musculoskeletal: Right fifth fingernail pain All other systems reviewed and are negative. PAST MEDICAL HISTORY Diagnosis Date - Bowel obstruction (HCC) April 2009 and Bowel Rupture - Chronic abdominal pain 05/22/2011 - History of recurrent miscarriages - Hyperlipidemia - PMH - PAST MEDICAL HISTORY OF Tubal x2 Current Outpatient Prescriptions: albuterol HFA (VENTOLIN HFA) 90 mcg/actuation inhaler INAHLE 2 PUFFS EVERY FOUR HOURS NEEDED (Patient not taking: Reported on 09/16/2017 ) Disp: 18 g Rfl: 5 estradiol (ESTRACE) 2 mg tablet Disp: Rfl: fluticasone (FLONASE) 50 mcg/actuation nasal spray Use 2 Sprays in each nostril once daily. (Patient not taking: Reported on 09/16/2017 ) Disp: 1 Bottle Rfl: 0 rosuvastatin (CRESTOR) 40 mg tablet Take 1 tablet by mouth once daily. (Patient not taking: Reported on 09/16/2017 ) Disp: 30 tablet Rfl: 5 No current facility-administered medications for this visit. PAST SURGICAL HISTORY Procedure Laterality Date - APPENDECTOMY - CONSULT TO COLO-RECTAL SURGERY 04/14/2008,04/16/2008 Papi Davis - EXPLORATORY OF ABDOMEN Dec. Laparotomy, exp. Adhesiolysis. Abdominal wall resection (mesh included), primary closure. - PAST SURGICAL HISTORY OF Bowel resection - REMOVAL GALLBLADDER Cholecystectomy - REMOVAL OF OVARY(S) just one left ovary and both tubes - REMOVAL OF OVARY(S) 2007 dr. del davis right ovary - TOTAL ABDOM HYSTERECTOMY 09/2005 after vag delivery-hemorrhage, AT/WB FAMILY HISTORY Problem Relation Age of Onset - Cancer Paternal Grandfather PROSTATE - Stroke Maternal Grandmother - Diabetes Maternal Grandmother - Coronary Artery Disease Maternal Grandmother - Cancer Maternal Grandmother - Cataract Maternal Grandmother - Hypertension Maternal Grandfather - Cataract Maternal Grandfather - Diabetes Father - Hypertension Father - Cataract Father - Diabetes Paternal Grandmother Social History Substance Use Topics - Smoking status: Current Some Day Smoker Packs/day: 0.25 Years: 15.00 Types: Cigarettes - Smokeless tobacco: Never Used Comment: one pack lasts 4 days - Alcohol use No BP 110/68 Pulse 70 Temp 36.2 ?C (97.1 ?F) (Tympanic) Resp 16 Wt 74.4 kg (164 lb) BMI 29.61 kg/m? Objective Physical Exam Constitutional: She is oriented to person, place, and time. HENT: Head: Normocephalic and atraumatic. Cardiovascular: Normal rate, regular rhythm and normal heart sounds. Pulmonary/Chest: Effort normal and breath sounds normal. Musculoskeletal: Pt has a small circular portion of the proximal nail the has peeled and new nail is growing underneath. 90% of the old nail is attached to the nailbed. There is no erythema or swelling. An old subungual hematoma is present distally. No signs of infection. No pain with ROM of the MCP PIP or DIP.normal distal sensation. Neurological: She is alert and oriented to person, place, and time. Nursing note and vitals reviewed. ASSESSMENT/PLAN: 1. Injury to fingernail of right hand, initial encounter - ICD9: 959.5, ICD10: S69.91XA The patients nail is still almost completely attached with a small portion having peeled with new nail growing underneath. I did not advise it to be removed at this point with it being attached and no infection. Instructed to wear a bandaid over top if it is getting caught on things. There is nothing to trim off of the nail here either. No sign of a bony injury, this occurred 4 months ago. Instructed to take ibuprofen and ice. Follow up with pcp. Isabella Hendricks PA-C Referring Provider: SELF [200] Allergies As of Date: 09/16/2017 Noted Allergy Reaction AMOXICILLIN 12/16/2011 4 - Hives DARVOCET A500 (PROPOXYPHENE N-QIAN*05/22/2011 1 - Mental Status Change ERYTHROMYCIN 03/13/2010 5 - Intolerance Comments: SHAKING LIPITOR (ATORVASTATIN) 10/16/2013 11 - Vomiting MELOXICAM 05/08/2013 14 - Other: See Comments Comments: Severe Headache PERCOCET (OXYCODONE-ACETAMINOPHEN)05/05/2010 12 - Shortness of Breath PRAVASTATIN 05/21/2016 9 - Itching RISPERIDONE 04/19/2014 7 - Swelling Comments: Keeping awake at night, fatigue during the day. SULFATE SALT 10/09/2005 7 - Swelling TRAMADOL 02/17/2013 5 - Intolerance Comments: Whole body shaking zpack [Other] 10/09/2005 1 - Mental Status Change Date Reviewed: 09/16/2017 Reviewed by: Shabnam Dominguez Ma - Fully Assessed Reason for Visit: Finger Injury [2772] Cmt: shut small finger on right hand in door x 4 months Primary Visit Diagnosis:Injury to fingernail of right hand, initial encounter [S69.91XA] Prescriptions as of 09/16/2017 Sig: ALBUTEROL SULFATE HFA 90 MCG/* INAHLE 2 PUFFS EVERY FOUR MANFRED* Patient not taking: Reported on 09/16/2017 ESTRADIOL 2 MG TABLET FLUTICASONE 50 MCG/ACTUATION * Use 2 Sprays in each nostril * Patient not taking: Reported on 09/16/2017 ROSUVASTATIN 40 MG TABLET Take 1 tablet by mouth once d* Patient not taking: Reported on 09/16/2017 Problem List As Of Date 09/16/2017 Noted Resolved Other specified complication, antepartum [O99.8*INVALID FOR*03/13/2010 TOBACCO USE DISORDER [F17.200] INVALID FOR* Unspecified disorders of bursae and tendons in *INVALID FOR*03/13/2010 Climacteric [N95.1] INVALID FOR* Chronic abdominal pain [R10.9, G89.29] INVALID FOR* Closed nondisplaced fracture of fifth left meta*INVALID FOR*09/15/2013 Bipolar 1 disorder [F31.9] INVALID FOR* More... 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] INVALID FOR* Growth of eyelid - Left Eye [D49.2] INVALID FOR* Other vitreous opacities - Both Eyes [H43.399] INVALID FOR* Encounter Status:Closed by ISABELLA HENDRICKS PA-C on 09/16/17 ALLERGIES ALLERGIES DATE TYPE / CODE NAME / CODE REACTION SEVERITY SOURCE Drug hydromorphone Anaphylaxis SV [place] 8 Allergy/189141387( HCl/N972980076(RX Community SNOM[facility]) NORM) Hospital Repository Drug oxycodone Anaphylaxis Unknown [place] Allergy/493915297( HCl/K646491551(RX [facility]) NORM) Hospital Repository Drug propoxyphene Other Unknown [place] 8 Allergy/574212746( napsylate/C206575 Community SNOM[facility]) 576(RXNORM) Hospital Repository Drug oxycodone Swelling MO [place] 8 Allergy/956512999( terephthalate/F[address]) 7053361(RXNORM) Hospital Repository Drug Sulfa Other Unknown [place] 8 Allergy/820919565( (Sulfonamide Community SNOM[facility] CT) Antibiotics)/F001 Hospital 194857(RXNORM) Repository Drug aspirin/T13569922 Swelling MO [place] 8 Allergy/389255508( 7(RXNORM) Community SNOM[facility]) Hospital Repository Drug erythromycin Hives Unknown [place] Allergy/610455476( base/M420478778(R [facility]) XNORM) Hospital Repository Drug azithromycin/F006 Other Unknown [place] 8 Allergy/832823095( 608936(RXNORM) Community SNOM[facility]) Hospital Repository Drug amoxicillin/F0060 Hives Unknown [place] [facility] Allergy/292480375( 79854(RXNORM) Community SNOM[facility]) Hospital Repository Drug tramadol/L7568156 Hives Unknown [place] 8 Allergy/527500584( 80(RXNORM) Community SNOM[facility]) Hospital Repository Drug gabapentin/S02836 Other Unknown [place] 8 Allergy/354393935( 4415(RXNORM) Community SNOMED CT) Hospital Repository DRUG PRAVASTATIN ITCHING [place] 7 INGREDI/274408561( Clinic Main SNOMED CT) [place] Repository DRUG/710207576(SNO HYDROMORPHONE ANAPHYLAXIS [place] [address]) (BULK) Clinic Main [place] Repository DRUG RISPERIDONE SWELLING [place] INGREDI/410252731( Clinic Main SNOMED CT) [place] Repository DRUG ATORVASTATIN Vomiting [place] INGREDI/015857632( Clinic Main SNOMED CT) [place] Repository DRUG MELOXICAM OTHER: SEE C [place] INGREDI/159571868( Clinic Main SNOMED CT) [place] Repository DRUG TRAMADOL INTOLERANCE [place] INGREDI/962843141( Clinic Main SNOMED CT) [place] Repository DRUG AMOXICILLIN HIVES [place] 2 INGREDI/480301686( Clinic Main SNOMED CT) [place] Repository DRUG/178996053(SNO PROPOXYPHENE Mental Chg [place] [address]) N-ACETAMINOPHEN Clinic Main [place] Repository DRUG/475491517(SNO OXYCODONE-ACETAMI SHORTNESS OF [place] [address]) NOPHEN Clinic Main [place] Repository DRUG/465925642(SNO ERYTHROMYCIN INTOLERANCE [place] [address]) [facility] Main [place] Repository DRUG SULFATE SALT SWELLING [place] 6 INGREDI/175003634( [facility] Main SNOMED CT) [place] Repository Miscellaneous OTHER Mental Chg [place] 6 Allergy/822236660( [facility] Main SNOMED CT) [place] Repository ENCOUNTERS ENCOUNTERS ADMIT/DISCHARGE ACCOUNT ADMITTING ENCOUNTER LOCATION SOURCE NUMBER CLASS 03/24/2018/03/26/20 [id number] [place], Ambulatory [address] ing:[id number]: Repository ZA651Eny: 1 03/24/2018 [id number] [place], Ambulatory BMSBuilding:Jose Vazquez MS.[facility] Repository 03/24/2018 [id number] [place], Ambulatory BMSBuilding:Jose Vazquez MS.[facility] Repository 03/24/2018 [id number] [place], Ambulatory BMSBuilding:oJse Vazquez MS.[facility] Repository 02/07/2018/02/11/20 [id number] [place], Inpatient [place] [facility] ing:WA8Msoq: Repository [id number]: 1 02/07/2018 [id number] [place], Ambulatory BMSBuilding:Jose Vazquez MS.[facility] Repository 02/07/2018 [id number] [place], Ambulatory BMSBuilding:Jose Vazquez MS.[facility] Repository 02/07/2018 [id number] [place], Ambulatory BMSBuilding:Jose Vazquez MS.[facility] Repository 02/07/2018 [id number] [place], Ambulatory BMSBuilding:Jose Vazquez MS.[facility] Repository 09/16/2017/09/17/19 [id number] Ambulatory [address] Repository PAYERS PAYERS ENCOUNTER GUARANTOR PAYER SUBSCRIBER SOURCE 03/24/2018 PETE [id number] [facility] [address] [facility] Number: [id number] [address]Uwo: [phone] [id number] Repository [phone] () Date:2018-03-24 [address]ATTN: [place] [address]MQ: 03/24/2018 Secondary NOT GIVENUNK [place] Insurance:SELF PAY [facility] Number: Effective Repository Date:2018-03-24 03/24/2018 PETE REIS[address] Primary [address] Insurance:[employer] SHORTDOB: [address] Number: [id number] [facility] [address]Vwf: 330 [id number] Repository [phone] () Date:2018-03-24 [address]ATTN: [place] [address]AW: 03/24/2018 Secondary NOT GIVENUNK [place] Insurance:SELF PAY [facility] Number: Effective Repository Date:2018-03-24 03/24/2018 PETE REIS[address] Primary [address] Insurance:[employer] SHORTDOB: [address] Number: [id number] [facility] [address]Icw: ([phone] [id number] Repository [phone] () Date:2018-03-24 [address]ATTN: [place] [address]QV: 03/24/2018 Secondary NOT GIVENUNK [place] Insurance:SELF PAY [facility] Number: Effective Repository Date:2018-03-24 03/24/2018 PETE REIS[address] Primary [address] Insurance:[employer] SHORTDOB: [address] Number: [id number] [facility] [address]Ciy: ([phone] [id number] Repository [phone] () Date:2018-03-24 [address]ATTN: [place] [address]VK: 03/24/2018 Secondary NOT GIVENUNK [place] Insurance:SELF PAY [facility] Number: Effective Repository Date:2018-03-24 02/07/2018 PETE WRIGHT Primary NOT GIVENUNK [place] [address] [address]:SELF [place] [facility] [place] [id number]: [phone]) [facility] [id number] (HP) Number: Effective Repository Date:2018-02-07 02/07/2018 Pete Wright Primary NOT GIVENUNK [place] [address], [place]:SELF [place] [facility] [place] [id number]: ([phone]) [place] [id number] (HP) Number: Effective Repository Date:2018-02-07 02/07/2018 Pete Wright Primary NOT GIVENUNK [place] [address], [place]:SELF [place] [facility] [place] [id number]: ([phone]) [facility] [id number] (HP) Number: Effective Repository Date:2018-02-07 02/07/2018 PETE WRIGHT Primary NOT GIVENUNK [place] [address], Insurance:SELF PAY [facility] [place] [id number]: [phone]) [facility] [id number] (HP) Number: Effective Repository Date:2018-02-07 02/07/2018 PETE WRIGHT Primary NOT GIVENUNK [place] [address] [address], Insurance:SELF [place] [facility] [place] [id number]: ([phone]) [facility] [id number] (HP) Number: Effective Repository Date:2018-02-07
== END 2018-03-26 13:48 | disposition home or self-care (01) ==
LOC: ED 16:36 → MS3 19:52
PROVIDERS: Admitting Provider Hospitalist; Emergency Provider Emergency Medicine; Visit Provider Internal Medicine
DX: N13.4 Hydroureter (principal); K59.00 Constipation, unspecified; E78.5 Hyperlipidemia, unspecified; R73.09 Other abnormal glucose; F17.210 Nicotine dependence, cigarettes, uncomplicated
CPT/HCPCS: 36415; 74018; 74177; 76770; 80048; 80053; 81001; 83605; 83690; 85025; 96361; 96365; 96366; 96367; 96372; 96375; 96376; 97802; 99218; 99282; J7030; Q9967; A4216; G0378; J0744; J2405

== ENCOUNTER 2018-05-10 16:28 | Emergency (ER) | payer SELFPAY ==
[2018-05-10 16:29] VITALS: BP 121/66; PULSE 88; RESP 14; TEMP 36.3; O2SAT 96; BMI 30.9
--- NOTE | 2018-05-10 16:55 | RAD_ITS ---
STUDY: X-RAY - RIGHT HIP REASON FOR EXAM: Female, 37 years old. Posttraumatic pain TECHNIQUE: 2 views of the hip. COMPARISON: None. FINDINGS: Normal femoral head, neck, intertrochanteric region and visualized proximal femur. Normal acetabulum. Normal hip joint. Normal visualized superior and inferior pubic rami and ischial tuberosities. RAD/HIP, UNI W/ Pelvis 2-3 Views IMPRESSION: Normal x-ray examination of the hip. Electronically Signed: Remy Holloway MD at 17:03 EST , Service support ,
--- NOTE | 2018-05-10 17:44 | ED.DCSUM_ITS ---
- ER Visit Summary Date of Service: 05/10/18 Chief Complaint: Right hip injury History of Present Illness: The patient is a 37 F presents to the emergency department injury to the right hip. Patient was in her normal state of health. States that 2 days ago, she had a mechanical fall and landed on the hip. She states that she was limping, but really had no significant pain. Today, she slipped on ice again and landed on the same hip. She felt like something popped. She is been able to ambulate, but does admit to pain. She did not strike her head. She denies loss of consciousness. Physical Examination: Exam is relatively unremarkable. Patient has no pain with logroll. The skin is intact. She has normal pulses. She does have pain to palpation over the greater trochanter. There is no shortening or external rotation. Test Results: [] Emergency Department Course and Treatment: Plain films were obtained. There is no evidence of acute fracture. I do feel that her symptoms are secondary to contusion. Based on patient's multiple allergies, she was given a short course of analgesics. She declined crutches. She will be discharged home. Treatment Plan: [] Disposition: Discharge Impression: 1. Right hip contusion This note was generated with [employer] dictation software. It may contain incorrect words, spelling, and punctuation that were not noted in review of the chart prior to signing ED Disposition - Plan for ED Patient: Chief Complaint: Fall Instructions: ED Contusion Hip Prescriptions: Hydrocodone Bitart/Apap 5-325 [[place] 5MG-325MG] 1 tab PO Q6H PRN PRN 2 Days #6 tab PRN Reason: Pain Referrals: Care Physician,No Primary [Primary Care Provider] -
[2018-05-10] MEDS: HYDROcodone Bitartrate/Apap 5/325 Tablet PO (17:48)
== END 2018-05-10 17:50 | disposition home or self-care (01) ==
PROVIDERS: Emergency Provider Emergency Medicine
DX: S70.01XA Contusion of right hip, initial encounter (principal); W00.0XXA Fall on same level due to ice and snow, initial encounter; Y93.9 Activity, unspecified; Y92.9 Unspecified place or not applicable; Y99.9 Unspecified external cause status
CPT/HCPCS: 73502; 99282

== ENCOUNTER 2018-09-29 16:14 | Emergency (ER) | payer SELFPAY ==
[2018-09-29 16:15] VITALS: BP 129/72; PULSE 84; RESP 20; TEMP 36.6; O2SAT 98; BMI 30.4
--- NOTE | 2018-09-29 16:28 | CT_ITS ---
STUDY: CT ABDOMEN AND PELVIS WITH CONTRAST REASON FOR EXAM: Female, 38 years old. Abdominal pain. Prior ALICIA/BSO, bowel resection. Appendectomy. RADIATION DOSAGE (If Supplied By Facility): CTDIvol = ( 14.58 ) mGy, DLP = ( 777.73 ) mGycm TECHNIQUE: Transaxial images were obtained from the dome of the diaphragm to the symphysis pubis without oral contrast. 100ML IV/Oral Isovue 300 was administered. Sagittal and coronal images were reconstructed. Individualized dose optimization techniques were used for this CT. COMPARISON: 03/24/2018. FINDINGS: Bibasilar atelectasis. Lung bases are otherwise clear. Visualized heart is normal. The liver is unremarkable. The gallbladder is unremarkable. The spleen and pancreas are unremarkable. The adrenal glands are normal. The kidneys are unremarkable. A prominent right extrarenal pelvis and proximal ureter are unchanged compared to the prior study. There is transition at the midureteral level with no evidence of obstructing stone or mass. The aorta is normal in caliber. There is no free fluid, free air, or organized collection. No bowel obstruction or inflammatory change. Urinary bladder is unremarkable. Normal abdominal wall. Normal osseous structures. CT/Abdomen/Pelvis WITH Contrast IMPRESSION: 1. No acute findings. 2. Prominent right extrarenal pelvis and proximal ureter with transition at the midureteral level. No change compared to the prior study. Midureteral stricture cannot be excluded. Electronically Signed: Shagufta Herron MD at 19:13 EDT Tel , Service support ,
--- NOTE | 2018-09-29 16:33 | ED.DCSUM_ITS ---
- ER Visit Summary Date of Service: 09/29/18 Chief Complaint: Abdominal pain History of Present Illness: The patient is a 38 F with no primary care physician. She reports she has abdominal pain that began yesterday. It is a crampy pain that is gradually worsened. Is now 10 out of 10 severity. Is worsened by movement. Is minimally relieved by remaining still. She reports she was nausea and vomited one time last night. No blood or emesis. She remains nauseated. She has had no diarrhea. Her last bowel was today. She is passing flatus. She denies any blood in her stools or black tarry stools. No dysuria or frequency. She is status post hysterectomy. Patient reports that she had similar episodes with a small bowel obstruction which she has had multiple times. Physical Examination: Vitals: Stable. Afebrile. General: Well-nourished and well-developed. Head: Normocephalic atraumatic. Neck: Supple, no lymphadenopathy. No JVD. Nontender. Cardiovascular: Regular rate and rhythm. No murmurs. Respiratory: No respiratory distress. Clear to auscultation bilaterally. Abdominal: Soft, mild diffuse tenderness to palpation, nondistended, hypoactive bowel sounds. No guarding, rebound, or peritoneal signs. Back: Nontender. Extremities: Nontender, no edema. Skin: Normal color, no rash. Neurologic: Alert and oriented ?3. Cranial nerves II through XII are intact. Normal strength and sensation. Psych: Normal affect. Test Results: CBC is normal. Chem-7 shows a chloride 110. LFTs are normal. Clinical Impression(s) from Imaging Studies Abdomen/Pelvis CT 09/29/18 16:28 IMPRESSION: 1. No acute findings. 2. Prominent right extrarenal pelvis and proximal ureter with transition at the midureteral level. No change compared to the prior study. Midureteral stricture cannot be excluded. Electronically Signed: Shagufta Herron MD at 19:13 EDT Tel , Service support , Emergency Department Course and Treatment: Patient had an IV placed. She was given morphine and Zofran IV. She is resting comfortably. Treatment Plan: Patient had an [facility] report that she has had one prescription for opiates in the past year. She will be discharged with Bentyl, Zofran, and 6 [place]. Instructed to follow-up Dr. Luz in 1 to 2 days if not improving. Return to the emergency department for any worsening symptoms. Disposition: To home in improved and stable condition. Impression: 1. Abdominal pain, uncertain cause. This note was generated with [employer] dictation software. It may contain incorrect words, spelling, and punctuation that were not noted in review of the chart prior to signing ED Disposition - Plan for ED Patient: Disposition: Home or Assisted Living Instructions: ABDOMINAL PAIN, Unknown Cause, (Female) Prescriptions: Dicyclomine HCl [Bentyl] 20 mg PO TIDAC #20 cap Prescription Printed Hydrocodone Bitart/Apap 5-325 [[place] 5MG-325MG] 1 tab PO Q4H PRN PRN 2 Days #6 tab PRN Reason: Pain Prescription Printed Ondansetron [Zofran Odt] 4 mg PO Q8H PRN PRN #10 tab PRN Reason: Nausea Prescription Printed Referrals: Marlon Luz MD [NON-STAFF] - 1-2 Days if not improving
[2018-09-29] MEDS: 0.9% Normal Saline 1,000 ML 1000 ML IV (16:47)
[2018-09-29] MEDS: Morphine 4 MG/ML Syringe IV (16:47)
[2018-09-29] MEDS: Ondansetron 4 MG/2 ML Vial IV (16:47)
[2018-09-29 17:05] LABS: Absolute Lymphocyte Count 2.76 X10^3/ul (0.83-4.51); Absolute Neutrophil Count 3.9 X10^3/uL (2.0-7.7); Basophil# 0.03 X10^3/uL; Basophil% 0.4 % (0-1); Eosinophil# 0.22 X10^3/uL; Hematocrit 41.2 % (37-47); Lymphocyte # 2.76 X10^3/ul (4.0); Lymphocyte % 37.5 % (19-41); Mean Corp Hgb Conc 31.6 g/gl (32-36); Mean Corpuscular Hgb 28.4 pg (27.0-32.0); Mean Platelet Vol. 10.2 fl (6.2-12.0); Monocyte# 0.43 X10^3/uL; Monocyte% 5.8 % (0-10); Neutrophil # 3.91 X10^3/uL (2.7-7.7); Neutrophil % 53.2 % (47-70); Platelet Count 230 K/mm3 (150-450); RBC Distribution Width CV 13.5 % (11.6-14.6); RBC Distribution Width SD 44.3 fl (35.1-43.9); Red Blood Count 4.58 M/mm3 (4.2-5.4); White Blood Count 7.4 K/mm3 (4.4-11.0)
[2018-09-29 17:09] LABS: POSITIVE COUNT NO; POSITIVE DIFFERENTIAL NO; POSITIVE MORPHOLOGY NO
[2018-09-29 17:10] LABS: ALB/GLOB Ratio 1.2 RATIO (0.9-2.4); AST(SGOT) 18 U/L (15-37); Alanine Aminotransfer ALT/SGPT 23 U/L (13-56); Albumin, Serum 3.8 g/dL (3.2-5.0); Alkaline Phosphatase 88 U/L (45-117); Anion Gap 4 (5-15); BUN 10 mg/dL (7-18); Calcium,Total 9.3 mg/dL (8.5-10.1); Chloride 110 mmol/L (98-107); Creatinine, Serum 0.91 mg/dL (0.55-1.02); EST Glomerular Filtration Rate 73 mL/min (>60); Est Glom Filt Rate - Afr Amer 88 mL/min (>60); Estimated Creatinine Clearance 68.66 ml/min; Globulin 3.3 g/dL (2.2-4.2); Glucose 82 mg/dL (74-106); Potassium 3.8 mmol/L (3.5-5.1); Protein, Total 7.1 g/dL (6.4-8.2); Sodium Level 143 mmol/L (136-145)
[2018-09-29 18:23] VITALS: BP 132/86; PULSE 89; RESP 16; O2SAT 98
--- NOTE | 2018-09-29 19:24 | CM.ED ---
Social Work Referral: Self-Pay, self referral. Informant: Patient Met with patient in room. Patient confirming to not have any insurance. 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 Patient reporting to have qualified for food stamps ($75) and to not be sure why patient has not been able to complete a Medicaid application. Patient reporting to not know how to complete a Medicaid application. This social service worker assisting patient in filling out a Medicaid application. This social service worker educating that on Medicaid application process and the importance of patient following up on application in order to be able to have a possibility of obtaining Medicaid. Patient voicing understanding. This social service worker faxed completed Medicaid application to [facility]. This social service worker also noting that patient does not have a primary care physician. This social service worker educating patient on the importance of having a primary care physician, patient voicing understanding and will wait to get insurance to set up primary care physician. Support provided. Intervention: Assisted with completing Medicaid application. CLOVER Mendoza
[2018-09-29 20:19] VITALS: BP 99/60; PULSE 84; RESP 16; RESP 18; O2SAT 98
== END 2018-09-29 20:25 | disposition home or self-care (01) ==
PROVIDERS: Emergency Provider Emergency Medicine
DX: R10.9 Unspecified abdominal pain (principal); R11.2 Nausea with vomiting, unspecified; Z72.0 Tobacco use; Z90.710 Acquired absence of both cervix and uterus; Z87.19 Personal history of other diseases of the digestive system
CPT/HCPCS: 74177; 80053; 85025; 96361; 96374; 96375; 99283; J7030; Q9967; A4216; J2405

== ENCOUNTER 2019-03-16 17:25 | Emergency (ER) | payer SELFPAY ==
[2019-03-16 17:26] VITALS: BP 116/69; PULSE 83; RESP 17; TEMP 36.3; O2SAT 98; BMI 30.9
[2019-03-16 17:42] VITALS: BP 118/70; PULSE 80; RESP 14; O2SAT 98
--- NOTE | 2019-03-16 17:46 | CT_ITS ---
STUDY: CT ABDOMEN AND PELVIS WITHOUT CONTRAST REASON FOR EXAM: Female, 38 years old. Abdominal pain RADIATION DOSAGE (If Supplied By Facility): CTDIvol = ( 07.96 ) mGy, DLP = ( 395.87 ) mGycm TECHNIQUE: Transaxial images were obtained from the dome of the diaphragm to the symphysis pubis without oral contrast, and without intravenous contrast. Sagittal and coronal images were reconstructed. Individualized dose optimization techniques were used for this CT. COMPARISON: 29 September 2018, 24 March 2018 FINDINGS: There are irregular pleural contacting basilar opacities, likely atelectasis. Inferior mediastinal contents are normal. Normal liver. Normal gallbladder and extrahepatic biliary system. Normal spleen. Normal pancreas. Normal bilateral adrenal glands. Normal right kidney. Normal left kidney. Normal visualized stomach. Normal small intestine. Normal colon. The appendix is visualized and appears normal. Normal abdominal aorta. Normal inferior vena cava. Normal retroperitoneum. Normal urinary bladder. The uterus is surgically removed. Normal abdominal wall. Normal osseous structures. Appearance is stable since prior. CT/Abdomen/Pelvis without Cont IMPRESSION: No acute or focal findings. No change since prior. Electronically Signed: Maritza Koehler, at 18:30 EST Tel , Service support ,
[2019-03-16] MEDS: Ondansetron 4 MG/2 ML Vial IV (18:02)
[2019-03-16] MEDS: Morphine 4 MG/ML Syringe IV (18:02)
--- NOTE | 2019-03-16 18:02 | ED.VISSUMM ---
- ER Visit Summary Date of Service: 03/16/19 Chief Complaint: Abdominal pain History of Present Illness: The patient is a 38 F who presents with abdominal pain. Is been ongoing for 3 days. She has cramping and sharp pain diffusely. Nothing makes the pain better or worse. She has no nausea, vomiting, diarrhea, constipation or urinary symptoms. She has a history of multiple bowel obstructions in the past. She has had 9 previous abdominal surgeries. Her surgeon is in [place]. No fevers. She does not have her gallbladder, uterus or appendix Physical Examination: Vital signs reviewed. HEENT exam unremarkable. Heart is regular rate and rhythm without murmurs. Lungs are clear to auscultation. Abdomen is soft with diffuse abdominal tenderness. There is no guarding or rebound tenderness. Extremities reveal no edema. Skin exam normal. Neurologic exam normal. Test Results: Laboratory studies normal. CAT scan normal. Emergency Department Course and Treatment: Patient was given morphine and Zofran and had no improvement of her symptoms. I gave her Bentyl which did help. I am unclear the etiology of her pain but her work appears negative. I will give her Bentyl to take at home. She will need to follow-up with her doctors if her symptoms persist. Treatment Plan: [] Disposition: Discharge Impression: Abdominal pain This note was generated with [employer] dictation software. It may contain incorrect words, spelling, and punctuation that were not noted in review of the chart prior to signing ED Disposition - Plan for ED Patient: Referrals: Care Physician,No Primary [Primary Care Provider] -
[2019-03-16 18:30] LABS: Absolute Lymphocyte Count 2.64 X10^3/uL (0.83-4.51); Absolute Neutrophil Count 3.9 X10^3/uL (2.0-7.7); Basophil# 0.05 X10^3/uL; Basophil% 0.7 % (0-1); Eosinophil# 0.24 X10^3/uL; Eosinophils% 3.3 % (0-5); Hematocrit 39.7 % (37-47); Hemoglobin 12.7 g/dL (12.0-15.0); Lymphocyte # 2.64 X10^3/ul (4.0); Lymphocyte % 36.2 % (19-41); Mean Corpuscular Hgb 28.5 pg (27.0-32.0); Mean Platelet Vol. 10.1 fl (6.2-12.0); Monocyte# 0.48 X10^3/uL; Monocyte% 6.6 % (0-10); NRBC Flagged by Analyzer 0 % (0-5); Neutrophil # 3.85 X10^3/uL (2.7-7.7); Neutrophil % 52.8 % (47-70); Platelet Count 225 K/mm3 (150-450); RBC Distribution Width CV 13.4 % (11.6-14.6); RBC Distribution Width SD 43.8 fl (35.1-43.9); Red Blood Count 4.46 M/mm3 (4.2-5.4); White Blood Count 7.3 K/mm3 (4.4-11.0)
[2019-03-16 18:40] LABS: ALB/GLOB Ratio 1.2 RATIO (0.9-2.4); AST(SGOT) 18 U/L (15-37); Alanine Aminotransfer ALT/SGPT 25 U/L (13-56); Albumin, Serum 3.8 g/dL (3.2-5.0); Alkaline Phosphatase 93 U/L (45-117); Anion Gap 5 (5-15); BUN 13 mg/dL (7-18); BUN/Creat Ratio 15.6 RATIO (10-20); Calcium,Total 9.4 mg/dL (8.5-10.1); Chloride 111 mmol/L (98-107); Creatinine, Serum 0.84 mg/dL (0.55-1.02); EST Glomerular Filtration Rate 80 mL/min (>60); Est Glom Filt Rate - Afr Amer 97 mL/min (>60); Estimated Creatinine Clearance 74.38 ml/min; Globulin 3.2 g/dL (2.2-4.2); Glucose 87 mg/dL (74-106); Lipase 152 U/L (73-393); Sodium Level 145 mmol/L (136-145)
[2019-03-16 18:51] LABS: Mucous, Urine 0 SEEN /hpf (<or=2+); Red Blood Cells-Urine 0 SEEN /hpf (0-5); White Blood Cells 0 SEEN /hpf (0-5)
[2019-03-16 19:02] LABS: Color, Urine Yellow (Yellow); Glucose, Dipstick Normal (Normal); Ketone-Dipstick Negative (Negative); Leukocyte Esterase-Dipstick Negative /ul (Negative); Nitrite-Dipstick Negative (Negative); Occult Blood-Urine Negative /ul (Negative); Protein-Dipstick Negative (Negative); Specific Gravity, Urine 1.015 (1.002-1.030); Urine Bilirubin Dipstick Negative (Negative); Urine Clarity Sl. Cloudy (Clear); Urine Urobilinogen Normal (Normal)
[2019-03-16 19:14] LABS: Bacteria 1+ /hpf (None Seen); Squamous Epithelial Cells - UA 0-5 SEEN /hpf (5-10)
[2019-03-16] MEDS: Dicyclomine 20 MG/2 ML Vial IM (19:55)
[2019-03-16 20:18] VITALS: BP 95/53; PULSE 62; RESP 14; O2SAT 97
--- NOTE | 2019-03-16 20:24 | ED.DEP ---
ED Disposition - Plan for ED Patient: Disposition: Home or Assisted Living Instructions: ABDOMINAL PAIN, Unknown Cause, (Female) Prescriptions: Dicyclomine HCl [Bentyl] 20 mg PO TIDAC #20 cap Prescription Printed Referrals: Care Physician,No Primary [Primary Care Provider] -
[2019-03-16 20:48] VITALS: RESP 16
== END 2019-03-16 20:49 | disposition home or self-care (01) ==
PROVIDERS: Emergency Provider Emergency Medicine
DX: R10.9 Unspecified abdominal pain (principal); E11.9 Type 2 diabetes mellitus without complications; Z72.0 Tobacco use; Z79.899 Other long term (current) drug therapy; Z87.19 Personal history of other diseases of the digestive system
CPT/HCPCS: 74176; 80053; 81001; 83690; 85025; 96372; 96374; 96375; 99283; J7050; A4216; J2405

== ENCOUNTER 2019-05-15 21:40 | Emergency (ER) | payer SELFPAY ==
[2019-05-15 21:41] VITALS: BP 111/78; PULSE 80; RESP 20; TEMP 36.6; O2SAT 99; BMI 31.5
--- NOTE | 2019-05-15 22:21 | CT_ITS ---
HISTORY: CONSTIPATION/mid abd pain.Hx of hysterectomy, appendectomy,and multiple bowel surgeries EXAMINATION: CT Abdomen And Pelvis W/O Contrast Injection TECHNIQUE: Helically acquired images were obtained of the abdomen and pelvis without oral or IV contrast as per renal stone protocol. A radiation dose optimization technique was used for this scan. IV Contrast dosage and agent: None. Oral contrast: None. COMPARISON: 03/16/2019 FINDINGS: Lower thorax: Bibasilar minor scarring without significant change. No pleural effusion or pericardial effusion. No radiopaque gallstones and no biliary dilatation. Limited non-infusion exam. Allowing for this, negative liver, spleen, and pancreas. The left kidney is mildly higher in position than the right. No renal or ureteral calculi and no hydronephrosis or hydroureter. The right mid abdomen shows a stable periureteral small phlebolith. The adrenal glands are not enlarged. Abdominal aorta is normal in caliber. No ascites or retroperitoneal lymph node enlargement. GI tract: No obstruction. Surgical absence of the appendix. Constipation pattern with moderate to large fecal residue within the colon. No obstructing lesion identified. Pelvis: Hysterectomy. Normal urinary bladder. No free fluid or lymph node enlargement. Bones: No acute osseous abnormality. CT/Abdomen/Pelvis without Cont IMPRESSION: 1. Constipation pattern. No free fluid or acute disease identified. 2. Previous appendectomy and hysterectomy. Individualized dose optimization techniques were used for this CT. at 0008 Reported and signed by: Jonnie Garibay MD Electronically Signed: Jonnie Garibay, at 0:07 EST Tel , Service support ,
--- NOTE | 2019-05-15 22:22 | ED.DCSUM_ITS ---
History of Present Illness Chief Complaint: Constipation Narrative: Patient is a 38-year-old female who presents with abdominal pain. This began yesterday evening. It started after eating an entire bag of flaming hot Doritos. She initially thought it was a normal belly ache. However her pain has worsened today. She complains of pain from the pelvis to the ribs. She describes it as sharp and stabbing. She does have a history of multiple abdominal surgeries including complete hysterectomy, appendectomy, bowel resections for bowel obstruction. She has not had a bowel movement in 4 days but notes that this is not unusual for her as she has a history of chronic constipation and will sometimes go 2 weeks. She denies nausea vomiting or fever. Patient's last 2 CTs showed no acute findings Past Medical History - Allergies and Home Meds Allergies/Adverse Reactions: Allergies hydromorphone HCl [From Dilaudid] Allergy (Severe, Verified 03/16/19 17:26) Anaphylaxis aspirin [From Percodan] Allergy (Intermediate, Verified 03/16/19 17:26) Swelling oxycodone terephthalate [From Percodan] Allergy (Intermediate, Verified 03/16/19 17:26) Swelling amoxicillin Allergy (Verified 03/16/19 17:26) Hives azithromycin Allergy (Verified 03/16/19 17:26) Other erythromycin base Allergy (Verified 03/16/19 17:26) Hives oxycodone HCl [From Percocet] Allergy (Verified 03/16/19 17:26) Anaphylaxis propoxyphene napsylate [From Darvocet-N] Allergy (Verified 03/16/19 17:26) Other Sulfa (Sulfonamide Antibiotics) Allergy (Verified 03/16/19 17:26) Other tramadol Allergy (Verified 03/16/19 17:26) Hives gabapentin Adverse Reaction (Verified 03/16/19 17:26) Other ketorolac [From Toradol] Adverse Reaction (Verified 03/16/19 17:26) Other FEEL FUNNY Primary Care Physician: Mesfin Ramos PA [Primary Care Provider] - Past Medical History: - - History of bowel obstruction, hysterectomy, bowel resections Surgical History: appendectomy, cholecystectomy, hysterectomy, - - Small bowel reconstruction Smoking Status: Current every day smoker - Family History Paternal Family History: Reports: Cancer, Diabetes, - - luekemia, strokes. Maternal Family History: Reports: Cancer Review of Systems All systems negative except as indicated General: Denies: Fever Cardiovascular: Denies: Chest pain Respiratory: Denies: Dyspnea Gastrointestinal: Reports: Abdominal pain, Constipation. Denies: Vomiting, Diarrhea Musculoskeletal: Denies: Myalgias, Arthralgias Skin: Denies: Rash Neurological: Denies: Headache Allergy: Denies: Uticaria Physical Exam Vital Signs/Narrative: Vital Signs Temp Pulse Resp BP Pulse Ox 05/15/19 21:41 97.8 F 80 20 H 111/78 99 Inital Vital Signs reviewed: Yes General: Well nourished Head: Normocephalic Eyes: EOMI ENT: Moist mucous membranes Neck: Supple Cardiovascular: Regular rate, Regular rhythm Respiratory: No distress Abdomen: Soft, - - Abdomen diffusely tender, no focal tenderness, abdomen is soft and nondistended, no guarding, no rebound Skin: Normal color Neurological: Alert Psychological: Normal affect Diagnostic/Tx/Re-eval Impressions Abdomen/Pelvis CT 05/15/19 22:21 IMPRESSION: 1. Constipation pattern. No free fluid or acute disease identified. 2. Previous appendectomy and hysterectomy. Individualized dose optimization techniques were used for this CT. at 0008 Reported and signed by: Jonnie Garibay MD Electronically Signed: Jonnie Garibay, at 0:07 EST Tel , Service support , 05/15/19 22:21 Abdomen/Pelvis without Cont [CT] Stat Laboratory Results 05/15/19 05/15/19 05/15/19 22:38 22:38 22:38 WBC 6.4 RBC 4.45 Hgb 12.7 Hct 40.3 MCV 90.6 MCH 28.5 MCHC 31.5 L RDW Std Deviation 44.1 H RDW Coeff of Yovana 13.3 Plt Count 208 MPV 9.7 Immature Gran % (Auto) 0.300 Neut % (Auto) 53.8 Lymph % (Auto) 35.1 [place] % (Auto) 7.2 Eos % (Auto) 3.3 Baso % (Auto) 0.3 Absolute Neuts (auto) 3.4 Absolute Lymphs (auto) 2.24 Nucleated RBC % 0 Sodium 144 Potassium 4.3 Chloride 112 H Carbon Dioxide 29.0 Anion Gap 3 L BUN 13 Creatinine 0.92 Estim Creat Clear Calc 67.91 Est GFR (MDRD) Af Amer 87 Est GFR (MDRD) Non-Af 72 BUN/Creatinine Ratio 14.2 Glucose 97 Lactic Acid 0.9 Calcium 9.2 Total Bilirubin 0.20 AST 24 ALT 35 Alkaline Phosphatase 93 Total Protein 6.9 Albumin 3.5 Globulin 3.4 Albumin/Globulin Ratio 1.0 Lipase 112 - Medical Decision Making Patient was treated with IV fluids, morphine, Zofran. Laboratory studies and CT imaging unremarkable as above. Patient advised to follow-up as an outpatient. She understands to return for new or worsening symptoms. She was discharged. ED Disposition - Plan for ED Patient: Disposition: Home or Assisted Living Diagnosis: Abdominal pain Instructions: ABDOMINAL PAIN, Unknown Cause, (Female) Referrals: Mesfin Ramos PA [Primary Care Provider] -
[2019-05-15] MEDS: Morphine 4 MG/ML Syringe IV (22:43)
[2019-05-15] MEDS: 0.9% Normal Saline 1,000 ML 1000 ML IV (22:43)
[2019-05-15] MEDS: Ondansetron 4 MG/2 ML Vial IV (22:44)
[2019-05-15 22:49] LABS: Absolute Lymphocyte Count 2.24 X10^3/uL (0.83-4.51); Absolute Neutrophil Count 3.4 X10^3/uL (2.0-7.7); Basophil# 0.02 X10^3/uL; Basophil% 0.3 % (0-1); Eosinophil# 0.21 X10^3/uL; Eosinophils% 3.3 % (0-5); Hematocrit 40.3 % (37-47); Hemoglobin 12.7 g/dL (12.0-15.0); Lymphocyte # 2.24 X10^3/ul (4.0); Lymphocyte % 35.1 % (19-41); Mean Corp Hgb Conc 31.5 g/dL (32-36); Mean Corpuscular Hgb 28.5 pg (27.0-32.0); Mean Corpuscular Volume 90.6 fL (81-99); Mean Platelet Vol. 9.7 fl (6.2-12.0); Monocyte# 0.46 X10^3/uL; Monocyte% 7.2 % (0-10); NRBC Flagged by Analyzer 0 % (0-5); Neutrophil # 3.44 X10^3/uL (2.7-7.7); Neutrophil % 53.8 % (47-70); Platelet Count 208 K/mm3 (150-450); RBC Distribution Width CV 13.3 % (11.6-14.6); RBC Distribution Width SD 44.1 fl (35.1-43.9); Red Blood Count 4.45 M/mm3 (4.2-5.4); White Blood Count 6.4 K/mm3 (4.4-11.0)
[2019-05-15 23:05] LABS: AST(SGOT) 24 U/L (15-37); Alanine Aminotransfer ALT/SGPT 35 U/L (13-56); Albumin, Serum 3.5 g/dL (3.2-5.0); Alkaline Phosphatase 93 U/L (45-117); Anion Gap 3 (5-15); BUN 13 mg/dL (7-18); BUN/Creat Ratio 14.2 RATIO (10-20); Calcium,Total 9.2 mg/dL (8.5-10.1); Chloride 112 mmol/L (98-107); Creatinine, Serum 0.92 mg/dL (0.55-1.02); EST Glomerular Filtration Rate 72 mL/min (>60); Est Glom Filt Rate - Afr Amer 87 mL/min (>60); Estimated Creatinine Clearance 67.91 ml/min; Globulin 3.4 g/dL (2.2-4.2); Glucose 97 mg/dL (74-106); Lipase 112 U/L (73-393); Potassium 4.3 mmol/L (3.5-5.1); Protein, Total 6.9 g/dL (6.4-8.2); Sodium Level 144 mmol/L (136-145)
[2019-05-15 23:07] LABS: Lactic Acid 0.9 mmol/L (0.4-1.9)
== END 2019-05-16 00:43 | disposition home or self-care (01) ==
PROVIDERS: Emergency Provider Emergency Medicine; PCP Physician Assistant
DX: R10.9 Unspecified abdominal pain (principal); R10.2 Pelvic and perineal pain; R07.81 Pleurodynia; Z88.8 Allergy status to other drugs, medicaments and biological substances; Z88.6 Allergy status to analgesic agent; Z88.5 Allergy status to narcotic agent; Z88.2 Allergy status to sulfonamides; Z88.1 Allergy status to other antibiotic agents; Z90.49 Acquired absence of other specified parts of digestive tract; F17.200 Nicotine dependence, unspecified, uncomplicated; Z90.710 Acquired absence of both cervix and uterus
CPT/HCPCS: 74176; 80053; 83605; 83690; 85025; 96361; 96374; 96375; 99283; J7030; A4216; J2405

== ENCOUNTER 2019-07-06 20:23 | Emergency (ER) | payer SELFPAY ==
[2019-07-06 20:25] VITALS: BP 123/75; PULSE 90; RESP 16; TEMP 36.7; O2SAT 100; BMI 31.5
--- NOTE | 2019-07-06 20:40 | ED.DCSUM_ITS ---
History of Present Illness Chief Complaint: Dental Informant: Patient Onset: Yesterday Context: Sudden Onset Timing: Continuous Quality: Pain Location: Right lower molar Current Severity: Mild Maximum Severity: Moderate Worsened by: Cold liquids Associated Symptoms: Cold, - - Unable to backslash Narrative: Patient is a 38-year-old woman who presents with dental pain. She complains of pain right lower molar. She reports sensitivity to cold not hot. This started abruptly yesterday. She has history of bad dentition. She does not have a dentist. She states all the dental offices are closed. She denies history of fever, chills night sweats. She denies difficulty opening or closing her mouth completely. She denies change in voice or difficulty swallowing. She denies history rheumatic fever, murmur, SBE, IV drug use or being immune suppressed. She has numerous allergies. Some of her allergies are not allergies. Prior similar symptoms: Yes Recent Illness/Hospitalization: No - Past Medical History (1) Obesity (BMI 30-39.9) Status: Chronic (2) History of small bowel obstruction Status: Chronic Past Medical History - Allergies and Home Meds Allergies/Adverse Reactions: Allergies hydromorphone HCl [From Dilaudid] Allergy (Severe, Verified 07/06/19 20:24) Anaphylaxis aspirin [From Percodan] Allergy (Intermediate, Verified 07/06/19 20:24) Swelling oxycodone terephthalate [From Percodan] Allergy (Intermediate, Verified 07/06/19 20:24) Swelling amoxicillin Allergy (Verified 07/06/19 20:24) Hives azithromycin Allergy (Verified 07/06/19 20:24) Other erythromycin base Allergy (Verified 07/06/19 20:24) Hives oxycodone HCl [From Percocet] Allergy (Verified 07/06/19 20:24) Anaphylaxis propoxyphene napsylate [From Darvocet-N] Allergy (Verified 07/06/19 20:24) Other Sulfa (Sulfonamide Antibiotics) Allergy (Verified 07/06/19 20:24) Other tramadol Allergy (Verified 07/06/19 20:24) Hives ketorolac [From Toradol] Adverse Reaction (Verified 07/06/19 20:24) Other FEEL FUNNY Primary Care Physician: Ramos,M Lucien, PA [Primary Care Provider] - Prior records reviewed: Yes Surgical History: appendectomy, cholecystectomy, hysterectomy, - - Small bowel reconstruction Lives: With Family Smoking Status: Current every day smoker Alcohol: Rare Drugs: None - Family History Paternal Family History: Reports: Cancer, Diabetes, - - luekemia, strokes. Maternal Family History: Reports: Cancer Review of Systems General: Denies: Chills, Fever, Malaise, Subjective, Weight loss Eyes: Denies: Visual changes - bilaterally, Blurred Vision - bilaterally ENT: Reports: - - Planes of dental pain.. Denies: Bilateral ear pain, Rhinorrhea, Sore throat Cardiovascular: Denies: Chest pain, Palpitations Respiratory: Denies: Dyspnea, Cough, Dyspnea on exertion Gastrointestinal: Denies: Nausea, Vomiting Skin: Denies: Rash Hematologic: Denies: Easy bruising, Easy bleeding Allergy: Denies: Uticaria, Swelling of the mouth, Swelling of the tongue Physical Exam Vital Signs/Narrative: Vital Signs Temp Pulse Resp BP Pulse Ox 07/05/20 20:25 98.1 F 90 16 123/75 H 100 Inital Vital Signs reviewed: Yes General: Well nourished, Well developed Head: Normocephalic, Atraumatic ENT: Moist mucous membranes, No nasal trauma, No rhinorrhea, TM's clear. Negative for: Nasal congestion, Sinus tenderness Mouth/Throat: Normal oral mucosa, Normal posterior oropharynx, No sublingual edema, Normal Stensen's duct, Dental abscess, Focal dental decay, Gingivitis, Tenderness on tooth percussion, Widespread dental decay. Negative for: Normal inspection lips/gums, No dental tenderness, Apthous ulcer, Dental trauma, Dental avulsion, Dentral fracture, Focal gum swelling, Trismus Neck: Supple, No lymphadenopathy, Nontender, No JVD. Negative for: Parotid tenderness Cardiovascular: Regular rate, Regular rhythm, No murmurs, Normal S1, Normal S2 Respiratory: No distress, CTA bilaterally Skin: Normal color, No rash Neurological: Alert Psychological: Negative for: Normal affect, Normal Mood Diagnostic/Tx/Re-eval - Medical Decision Making Has a dental carry with exposure of the dentin. This is involving the second right lower molar. The tooth is loose. There is evidence of other dental caries. There is no evidence of Ludewig's angina. There is no facial swelling or cellulitis. There is no trismus. Patient was treated with clindamycin and Naprosyn because of her numerous allergies. ED Disposition - Plan for ED Patient: Disposition: Home or Assisted Living Diagnosis: Dental abscess, Dental caries extending into pulp, Dental caries extending into dentine Instructions: Dental Abscess Prescriptions: Clindamycin HCl [Cleocin] 300 mg PO Q6H #28 cap Transmission Status: Pending to [facility] Naproxen [Naprosyn] 500 mg PO BID #14 tab Transmission Status: Pending to [facility] Referrals: Mesfin Ramos PA [Primary Care Provider] - Sepideh Sy [NON-STAFF] - 1-2 Weeks
[2019-07-06] MEDS: Clindamycin HCl 150 MG Capsule 300 MG PO (20:42)
[2019-07-06] MEDS: Naproxen 250 MG Tablet 500 MG PO (20:42)
[2019-07-06 20:44] VITALS: BP 117/71; PULSE 85; RESP 17; O2SAT 99
== END 2019-07-06 20:53 | disposition home or self-care (01) ==
PROVIDERS: Emergency Provider Emergency Medicine; PCP Physician Assistant
DX: K04.7 Periapical abscess without sinus (principal); E66.9 Obesity, unspecified; Z87.19 Personal history of other diseases of the digestive system; F17.200 Nicotine dependence, unspecified, uncomplicated
CPT/HCPCS: 99283

== ENCOUNTER 2019-10-09 13:34 | Emergency (ER) | payer MEDICAID, SELFPAY ==
[2019-10-09 13:35] VITALS: BP 150/54; PULSE 94; RESP 18; TEMP 36.6; O2SAT 98; BMI 31.5
--- NOTE | 2019-10-09 15:04 | CT_ITS ---
STUDY: CT ABDOMEN AND PELVIS WITHOUT CONTRAST REASON FOR EXAM: Female, 39 years old. SEVERE ABD PAIN RADIATION DOSAGE (If Supplied By Facility): CTDIvol = ( 17.42 ) mGy, DLP = ( 927.09 ) mGycm TECHNIQUE: Transaxial images were obtained from the dome of the diaphragm to the symphysis pubis without oral contrast, and without intravenous contrast. Sagittal and coronal images were reconstructed. Individualized dose optimization techniques were used for this CT. COMPARISON: None. FINDINGS: There are mild pulmonary infiltrates right middle lobe, lingula and lower lobes.. The visualized portions of the heart are within normal limits. Normal liver. Normal gallbladder and extrahepatic biliary system. Normal spleen. Normal pancreas. Normal bilateral adrenal glands. Normal right kidney. Normal left kidney. Normal visualized stomach. There is partial bowel resection with surgical clips, staple line within the upper pelvis. There is moderate colonic fecal load.. There is prior appendectomy and hysterectomy. There is no distention of small bowel. Normal abdominal aorta. Normal inferior vena cava. Normal retroperitoneum. Normal urinary bladder. Normal abdominal wall. There are stable bone islands within the pelvis. CT/Abdomen/Pelvis W IV Cont ONLY IMPRESSION: Moderate colonic fecal load, likely partial fecal impaction, no evidence for obstruction. Mild pulmonary infiltrates, right middle lobe, lingula and lower lobes, hypoventilatory changes and/or pneumonia cannot exclude atypical viral pneumonia Prior appendectomy, hysterectomy Electronically Signed: Sherwin Piper, at 17:20 EDT Tel , Service support ,
[2019-10-09] MEDS: Ondansetron 4 MG/2 ML Vial IV (15:31)
[2019-10-09] MEDS: Morphine 4 MG/ML Syringe IV (15:31)
[2019-10-09] MEDS: 0.9% Normal Saline 1,000 ML 1000 ML IV (15:32)
[2019-10-09 16:01] LABS: Absolute Lymphocyte Count 2.01 X10^3/uL (0.83-4.51); Absolute Neutrophil Count 3.8 X10^3/uL (2.0-7.7); Basophil# 0.04 X10^3/uL; Basophil% 0.6 % (0-1); Eosinophil# 0.19 X10^3/uL; Hematocrit 42.8 % (37-47); Hemoglobin 13.4 g/dL (12.0-15.0); Lymphocyte # 2.01 X10^3/ul (4.0); Lymphocyte % 31.5 % (19-41); Mean Corp Hgb Conc 31.3 g/dL (32-36); Mean Corpuscular Hgb 28.8 pg (27.0-32.0); Mean Platelet Vol. 10.4 fl (6.2-12.0); Monocyte# 0.34 X10^3/uL; Monocyte% 5.3 % (0-10); NRBC Flagged by Analyzer 0 % (0-5); Neutrophil % 59.4 % (47-70); Platelet Count 223 K/mm3 (150-450); RBC Distribution Width CV 13.5 % (11.6-14.6); RBC Distribution Width SD 45.1 fl (35.1-43.9); Red Blood Count 4.65 M/mm3 (4.2-5.4); White Blood Count 6.4 K/mm3 (4.4-11.0)
[2019-10-09 16:11] LABS: Lactic Acid 0.5 mmol/L (0.4-1.9)
[2019-10-09 16:17] LABS: Mucous, Urine 0 SEEN /hpf (<or=2+); Red Blood Cells-Urine 0 SEEN /hpf (0-5)
[2019-10-09 16:25] VITALS: BP 91/59; PULSE 49; RESP 14; TEMP 36; O2SAT 93
[2019-10-09 16:38] LABS: AST(SGOT) 19 U/L (15-37); Alanine Aminotransfer ALT/SGPT 28 U/L (13-56); Albumin, Serum 3.8 g/dL (3.2-5.0); Alkaline Phosphatase 93 U/L (45-117); Anion Gap 2 (5-15); BUN 12 mg/dL (7-18); BUN/Creat Ratio 14.4 RATIO (10-20); Calcium,Total 9.6 mg/dL (8.5-10.1); Chloride 109 mmol/L (98-107); Creatinine, Serum 0.83 mg/dL (0.55-1.02); EST Glomerular Filtration Rate 81 mL/min (>60); Est Glom Filt Rate - Afr Amer 98 mL/min (>60); Estimated Creatinine Clearance 74.53 ml/min; Globulin 3.7 g/dL (2.2-4.2); Glucose 85 mg/dL (74-106); Lipase 91 U/L (73-393); Protein, Total 7.5 g/dL (6.4-8.2); Sodium Level 143 mmol/L (136-145)
[2019-10-09 16:41] LABS: Color, Urine Yellow (Yellow); Glucose, Dipstick Normal (Normal); Ketone-Dipstick Negative (Negative); Leukocyte Esterase-Dipstick Negative /ul (Negative); Nitrite-Dipstick Negative (Negative); Occult Blood-Urine Negative /ul (Negative); Protein-Dipstick Negative (Negative); Urine Bilirubin Dipstick Negative (Negative); Urine Clarity Clear (Clear); Urine Urobilinogen Normal (Normal)
[2019-10-09 16:44] LABS: Internal QC Validated? YES +Cl - CLEAR BKGD; Pregnancy, Urine Negative Negative
[2019-10-09 16:52] LABS: Bacteria 1+ /hpf (None Seen); Squamous Epithelial Cells - UA 0-5 SEEN /hpf (5-10)
[2019-10-09 16:53] LABS: White Blood Cells 0-5 SEEN /hpf (0-5)
[2019-10-09] MEDS: Dicyclomine 10 MG Capsule 20 MG PO (17:43)
--- NOTE | 2019-10-09 17:54 | RAD_ITS ---
STUDY: X-RAY CHEST REASON FOR EXAM: Female, 39 years old. ABDOMINAL PAIN. NO CHEST COMPLAINTS TECHNIQUE: Portable chest COMPARISON: 06/09/2014. FINDINGS: There are mild bibasilar pulmonary opacities.. There is no demonstrated pleural abnormality. Normal size heart. Normal mediastinum and brennen. Normal visualized pulmonary arteries. Normal visualized aortic arch and descending thoracic aorta. Normal visualized thoracic spine. Normal visualized ribs, clavicles, and shoulders. There is no demonstrated abnormality of the visualized soft tissue structures of the upper abdomen. RAD/Chest 1 View (Portable) IMPRESSION: Mild bibasilar pulmonary opacities, pneumonia and/or hypoventilatory changes, atypical viral pneumonia cannot be excluded. Electronically Signed: Sherwin Piper, at 18:30 EDT Tel , Service support ,
[2019-10-09 17:57] VITALS: BP 90/51; PULSE 56; RESP 14; TEMP 36.6; O2SAT 98
[2019-10-09 18:08] VITALS: O2SAT 97
--- NOTE | 2019-10-09 19:19 | ED.DCSUM_ITS ---
History of Present Illness Chief Complaint: Abd Pain Informant: Patient - Abdominal Pain/Flank Pain Onset: Days Context: Sudden Onset Timing: Continuous Location: Diffuse Current Severity: Severe Worsened by: Movement - Nausea/Vomiting/Emesis GI Symptom: Negative for: Nausea, Vomiting - Diarrhea/Melena/Hematochezia GI Symptom: - - Constipation. Negative for: Diarrhea Onset: Days Narrative: Patient is a 39-year-old female with extensive abdominal surgical history as well as multiple small bowel obstructions presenting with diffuse abdominal pain. Patient states she has had abdominal pain for the past 3 days. She states that feels like someone is punching her in the stomach. She cannot localize the pain. She denies any associated nausea or vomiting. She states she has had small amounts of diarrhea with her last bowel moving yesterday feels constipated because she is not had a good bowel movement in 2 weeks. Patient states she is had intermittent episodes of pain like this before and she just knows that she has a small bowel obstruction at this time. She denies any associated urinary symptoms. Patient states she just cannot take the pain anymore so she came to the emergency room. Past Medical History - Allergies and Home Meds Allergies/Adverse Reactions: Allergies hydromorphone HCl [From Dilaudid] Allergy (Severe, Verified 10/09/19 13:37) Anaphylaxis aspirin [From Percodan] Allergy (Intermediate, Verified 10/09/19 13:37) Swelling oxycodone terephthalate [From Percodan] Allergy (Intermediate, Verified 10/09/19 13:37) Swelling amoxicillin Allergy (Verified 10/09/19 13:37) Hives azithromycin Allergy (Verified 10/09/19 13:37) Other erythromycin base Allergy (Verified 10/09/19 13:37) Hives oxycodone HCl [From Percocet] Allergy (Verified 10/09/19 13:37) Anaphylaxis propoxyphene napsylate [From Darvocet-N] Allergy (Verified 10/09/19 13:37) Other Sulfa (Sulfonamide Antibiotics) Allergy (Verified 10/09/19 13:37) Other tramadol Allergy (Verified 10/09/19 13:37) Hives ketorolac [From Toradol] Adverse Reaction (Verified 10/09/19 13:37) Other FEEL FUNNY Primary Care Physician: Mesfin Ramos PA [Primary Care Provider] - Past Medical History: - - Small bowel obstruction, history of ileus Surgical History: appendectomy, cholecystectomy, hysterectomy, - - Small bowel reconstruction Smoking Status: Current every day smoker - Family History Paternal Family History: Reports: Cancer, Diabetes, - - luekemia, strokes. Maternal Family History: Reports: Cancer Review of Systems General: Denies: Chills, Fever, Sweats Eyes: Denies: Visual changes - bilaterally, Diplopia ENT: Denies: Rhinorrhea, Sore throat Cardiovascular: Denies: Chest pain, Palpitations Respiratory: Denies: Dyspnea, Cough, Dyspnea on exertion, Paroxysmal nocturnal dyspnea Gastrointestinal: Reports: Abdominal pain. Denies: Nausea, Vomiting, Diarrhea, Melena, Hematochezia Genitourinary: Denies: Dysuria, Hematuria, Frequency Musculoskeletal: Denies: Back pain, Extremity Pain Skin: Denies: Rash, Wounds Neurological: Denies: Headache, Weakness, Numbness Physical Exam Vital Signs/Narrative: Vital Signs Temp Pulse Resp BP Pulse Ox 10/09/19 17:57 97.9 F 56 L 14 90/51 L 98 10/09/19 16:25 96.8 F L 49 L 14 91/59 L 93 Inital Vital Signs reviewed: Yes General: Well nourished, Well developed, No Acute Distress Head: Normocephalic, Atraumatic Eyes: Perrl, EOMI ENT: Moist mucous membranes, No rhinorrhea Neck: Supple, Nontender Cardiovascular: Regular rate, Regular rhythm, No murmurs Respiratory: No distress, CTA bilaterally, Chest nontender Abdomen: Soft, Nondistended, Normal bowel sounds, Tender, Guarding - Voluntary, - - No peritoneal signs. Negative for: Rebound tenderness, Hypoactive bowel sounds Back: Nontender, Normal Inspection. Negative for: CVA tenderness Extremities: Nontender, No edema Skin: Normal color, No rash Neurological: Alert, Oriented x3, Cranial nerves II-XII grossly intact, Normal Strength, Normal Sensation Psychological: Normal affect, Normal Mood Diagnostic/Tx/Re-eval CT: Abdomen and Pelvis Clinical Impression(s) from Imaging Studies Abdomen/Pelvis CT 10/09/19 15:04 IMPRESSION: Moderate colonic fecal load, likely partial fecal impaction, no evidence for obstruction. Mild pulmonary infiltrates, right middle lobe, lingula and lower lobes, hypoventilatory changes and/or pneumonia cannot exclude atypical viral pneumonia Prior appendectomy, hysterectomy Electronically Signed: Sherwin Piper, at 17:20 EDT Tel , Service support , Chest X-Ray 10/09/19 17:54 IMPRESSION: Mild bibasilar pulmonary opacities, pneumonia and/or hypoventilatory changes, atypical viral pneumonia cannot be excluded. Electronically Signed: Sherwin Piper, at 18:30 EDT Tel , Service support , Laboratory Data 10/09/19 10/09/19 10/09/19 15:30 15:30 15:30 WBC 6.4 RBC 4.65 Hgb 13.4 Hct 42.8 MCV 92.0 MCH 28.8 MCHC 31.3 L RDW Std Deviation 45.1 H RDW Coeff of Yovana 13.5 Plt Count 223 MPV 10.4 Immature Gran % (Auto) 0.200 Neut % (Auto) 59.4 Lymph % (Auto) 31.5 Tripp % (Auto) 5.3 Eos % (Auto) 3.0 Baso % (Auto) 0.6 Absolute Neuts (auto) 3.8 Absolute Lymphs (auto) 2.01 Nucleated RBC % 0 Sodium 143 Potassium 4.0 Chloride 109 H Carbon Dioxide 32.0 Anion Gap 2 L BUN 12 Creatinine 0.83 Estim Creat Clear Calc 74.53 Est GFR (MDRD) Af Amer 98 Est GFR (MDRD) Non-Af 81 BUN/Creatinine Ratio 14.4 Glucose 85 Lactic Acid 0.5 Calcium 9.6 Total Bilirubin 0.50 AST 19 ALT 28 Alkaline Phosphatase 93 Total Protein 7.5 Albumin 3.8 Globulin 3.7 Albumin/Globulin Ratio 1.0 Lipase 91 Urine Color Urine Clarity Urine pH Ur Specific [place] Urine Protein Urine Glucose (UA) Urine Ketones Urine Occult Blood Urine Nitrite Urine Bilirubin Urine Urobilinogen Ur Leukocyte Esterase Urine RBC Urine WBC Ur Squamous Epith Cells Urine Bacteria Urine Mucus Urine Test 10/09/19 10/09/19 16:00 16:00 WBC RBC Hgb Hct MCV MCH MCHC RDW Std Deviation RDW Coeff of Yovana Plt Count MPV Immature Gran % (Auto) Neut % (Auto) Lymph % (Auto) Tripp % (Auto) Eos % (Auto) Baso % (Auto) Absolute Neuts (auto) Absolute Lymphs (auto) Nucleated RBC % Sodium Potassium Chloride Carbon Dioxide Anion Gap BUN Creatinine Estim Creat Clear Calc Est GFR (MDRD) Af Amer Est GFR (MDRD) Non-Af BUN/Creatinine Ratio Glucose Lactic Acid Calcium Total Bilirubin AST ALT Alkaline Phosphatase Total Protein Albumin Globulin Albumin/Globulin Ratio Lipase Urine Color Yellow Urine Clarity Clear Urine pH 5.0 Ur Specific [place] 1.020 Urine Protein Negative Urine Glucose (UA) Normal Urine Ketones Negative Urine Occult Blood Negative Urine Nitrite Negative Urine Bilirubin Negative Urine Urobilinogen Normal Ur Leukocyte Esterase Negative Urine RBC 0 SEEN Urine WBC 0-5 SEEN Ur Squamous Epith Cells 0-5 SEEN Urine Bacteria 1+ Urine Mucus 0 SEEN Urine Test Negative - Medical Decision Making Patient evaluated for 3 days of generalized abdominal pain. She states she is had pain like this before with her small bowel obstructions. She does not have associated nausea or vomiting and states she is active and having diarrhea. Patient is given morphine for pain control which does improve her pain. She is also given IV fluids.Patient has a normal CBC as well as a normal CMP and lipase. Urinalysis is not consistent with infection. CT of the abdomen pelvis is obtained which does not show any acute intra-abdominal process but does show mild pulmonary infiltrates of the right middle, lingula and lower lobes concerning for atypical viral pneumonia. Patient does have moderate stool burden but no significant stool is seen in the rectum. Patient is then given Bentyl for pain control and does have significant improvement of her symptoms. She is now eating a turkey sandwich in the emergency room. She states she feels much better. Chest x-ray is obtained because of the concerning pulmonary findings on her CT of her abdomen. Patient states that she does not feel short of breath and probably does have these findings because she is a smoker. She is ambulated does not have any desaturation below 93%. She is asymptomatic. 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 Patient is agreeable to swab. She is counseled that she should self isolates and not return to work until her COVID swab is either negative or 14 days after it is positive. The cause of her abdominal pain is not clear. She is instructed to start taking MiraLAX for possible stool retention and she will be prescribed Bentyl. She is encouraged to follow-up with her surgeon in [place] for her continued intermittent episodes of abdominal pain. Patient is counseled on signs and symptoms requiring return to the emergency room. Patient verbalizes agreement and understand this plan. Patient discharged home in stable and improved condition. ED Disposition - Plan for ED Patient: Disposition: Home or Assisted Living Diagnosis: Abdominal pain of unknown etiology, Abnormal chest x-ray Instructions: ED Abdominal Pain Unkn Cause Fem Prescriptions: Dicyclomine HCl [Bentyl] 20 mg PO TIDAC #30 cap Transmission Status: Pending to [facility] Referrals: Mesfin Ramos PA [Primary Care Provider] - Additional Instructions: Please take a spoonful of MiraLAX daily to help with constipation that is seen in your colon under CT. Do not return to work until your COVID test is either negative or if it is positive, 14 days after a positive. Please self quarantine while you are waiting for your results. They should come back in 2 to 5 days. Please follow-up with your surgeon in [place] for your continued episodes of abdominal pain.
== END 2019-10-09 19:42 | disposition home or self-care (01) ==
PROVIDERS: Emergency Provider Emergency Medicine; PCP Physician Assistant
DX: R10.84 Generalized abdominal pain (principal); K59.00 Constipation, unspecified; R91.8 Other nonspecific abnormal finding of lung field; F17.200 Nicotine dependence, unspecified, uncomplicated; Z87.19 Personal history of other diseases of the digestive system; Z90.710 Acquired absence of both cervix and uterus
CPT/HCPCS: 71045; 74177; 80053; 81001; 81025; 83605; 83690; 85025; 87635; 96361; 96374; 96375; 99283; Q9967; J2405; U0003

== ENCOUNTER 2019-11-23 18:08 | Emergency (ER) | payer MEDICAID, SELFPAY ==
[2019-11-23 18:09] VITALS: BP 130/78; PULSE 79; RESP 16; TEMP 36.1; O2SAT 97; BMI 30.9
--- NOTE | 2019-11-23 18:18 | CT_ITS ---
STUDY: CT ABDOMEN AND PELVIS WITHOUT CONTRAST REASON FOR EXAM: Female, 39 years old. Abdominal pain. Fell down 14 steps. RADIATION DOSAGE (If Supplied By Facility): CTDIvol = ( 9.02 ) mGy, DLP = ( 441.59 ) mGycm TECHNIQUE: Transaxial images were obtained from the dome of the diaphragm to the symphysis pubis without oral contrast, and without intravenous contrast. Sagittal and coronal images were reconstructed. Individualized dose optimization techniques were used for this CT. COMPARISON: 10/09/2019. FINDINGS: There are vague groundglass density densities in both lung bases. There is no pneumothorax. The visualized portions of the heart are within normal limits. Normal liver. Normal gallbladder and extrahepatic biliary system. Normal spleen. Normal pancreas. Normal bilateral adrenal glands. Normal right kidney. Normal left kidney. Normal visualized stomach. There are surgical clips in the mid mesentery and along small bowel loops beneath the left anterior abdominal wall. No evidence of obstruction. Normal small intestine. Normal colon. There are surgical clips in the region of the appendix consistent with a prior appendectomy. Normal abdominal aorta. Normal inferior vena cava. Normal retroperitoneum. Normal urinary bladder. Normal vaginal cuff. There is no pelvic lymphadenopathy. No free air or free fluid is seen within the peritoneal cavity. Normal abdominal wall. Normal osseous structures. CT/Abdomen/Pelvis without Cont IMPRESSION: 1. No evidence of acute intra-abdominal or pelvic abnormality 2. Mild groundglass density at the lung bases. Infiltrate versus contusions. 3. No other change in abdominal pelvic findings when compared to 10/09/2019. Electronically Signed: Selvin Corrales DO at 18:59 EDT Tel [phone], Service support ,
[2019-11-23] MEDS: Ibuprofen 600 MG Tablet PO (18:41)
--- NOTE | 2019-11-23 19:24 | ED.DCSUM_ITS ---
- ER Visit Summary Date of Service: 11/23/19 Chief Complaint: Abdominal pain status post fall History of Present Illness: The patient is a 39 F who presents with abdominal pain after a fall. She states that she fell down her steps at about 8 AM this morning. She complained of abdominal pain at that time. She went to work all day but then left because the pain was too much. The pain is in the lower part of her abdomen. Nothing makes it better or worse. She took nothing for it at home. She has a history of small bowel obstructions in the past and has had multiple abdominal surgeries previously. Physical Examination: Vital signs reviewed. HEENT exam unremarkable. Heart is regular rate and rhythm without murmurs. Lungs are clear to auscultation. Abdomen is soft with diffuse lower abdominal tenderness. There is no guarding or rebound tenderness. Extremities reveal no edema. Skin exam normal. Neurologic exam normal. Test Results: CAT scan of the abdomen pelvis shows nothing acute. It does admit to some groundglass opacities. Emergency Department Course and Treatment: The patient does have groundglass opacities on the CAT scan but she has no pulmonary symptoms. No fever. I do not feel this represents infection. Treatment Plan: Patient was given ibuprofen here for her pain. Patient will continue NSAIDs at home. The CAT scan does not show any acute traumatic injuri es. Disposition: Discharge Impression: Abdominal contusion This note was generated with [employer] dictation software. It may contain incorrect words, spelling, and punctuation that were not noted in review of the chart prior to signing ED Disposition - Plan for ED Patient: Disposition: Home or Assisted Living Instructions: ED Mechanical Fall Referrals: Mesfin Ramos PA [Primary Care Provider] -
== END 2019-11-23 19:41 | disposition home or self-care (01) ==
PROVIDERS: Emergency Provider Emergency Medicine; PCP Physician Assistant
DX: S30.1XXA Contusion of abdominal wall, initial encounter (principal); W10.9XXA Fall (on) (from) unspecified stairs and steps, initial encounter; Y93.9 Activity, unspecified; Y92.9 Unspecified place or not applicable; Y99.9 Unspecified external cause status; E11.9 Type 2 diabetes mellitus without complications; Z72.0 Tobacco use; Z87.19 Personal history of other diseases of the digestive system
CPT/HCPCS: 74176; 99283

== ENCOUNTER 2019-12-04 19:22 | Emergency (ER) | payer MEDICAID, SELFPAY ==
[2019-12-04 19:22] VITALS: BP 102/65; PULSE 76; RESP 17; TEMP 36.2; O2SAT 98; BMI 30.2
--- NOTE | 2019-12-04 21:42 | RAD_ITS ---
STUDY: X-RAY - RIGHT FOOT CLINICAL: Female, 39 years old. RIGHT FOOT PAIN X 1 MONTH, PATIENT COMPLAINS SHE FEELS LIKE SOMETHING IS IN THE FOOT. TECHNIQUE: 3 view(s) of the foot. COMPARISON: None. FINDINGS: Normal talus, calcaneus, and tarsal bones. Normal visualized subtalar, talonavicular, calcaneocuboid, tarsal and tarsometatarsal articulations. Normal metatarsi. Normal metatarsophalangeal joint of the great toe. Normal tibial and fibular sesamoid bones. Normal interphalangeal joint of the great toe. Normal phalanges of the great toe. Normal second through fifth metatarsophalangeal joints. Normal interphalangeal joints and phalanges of the lesser toes. The soft tissue structures are unremarkable. RAD/Foot min 3 Views IMPRESSION: Normal x-ray examination of the foot. Electronically Signed: Remy Holloway MD at 22:06 EDT , Service support ,
--- NOTE | 2019-12-04 22:22 | ED.DEP ---
ED Disposition - Plan for ED Patient: Instructions: ED Sprain Foot Referrals: Mesfin Ramos PA [Primary Care Provider] - Remy Kyle DPM [STAFF PHYSICIAN] -
--- NOTE | 2019-12-04 22:29 | ED.VISSUMM ---
- ER Visit Summary Date of Service: 12/04/19 Chief Complaint: Right foot pain History of Present Illness: The patient is a 39 F presenting with right foot pain. Patient states this has been ongoing for the past 1 month. She states she stepped on a rock 1 month ago. She has had persistent pain in her right heel since. She is unsure if she has a foreign body. She denies having a bleeding wound after she stepped on the rock. She feels like she has something inside her foot. Denies other complaints. Physical Examination: Vitals are stable. Patient is afebrile. Alert no acute distress. HEENT exam is unremarkable. Neck is supple. Lungs are clear and equal bilaterally. Heart is regular rate and rhythm. Extremities tenderness of right heel. No erythema or warmth. Normal pulses. No open wounds. Skin is warm and dry. No focal neurologic deficit. Remainder of exam is unremarkable. Emergency Department Course and Treatment: X-ray right foot shows no acute process. She was given a postop shoe. Advised to follow-up with podiatry. Advised return to ED for worsening complaints. Disposition: Discharge home Impression: Right foot pain This note was generated with [employer] dictation software. It may contain incorrect words, spelling, and punctuation that were not noted in review of the chart prior to signing ED Disposition - Plan for ED Patient: Instructions: ED Sprain Foot Referrals: Remy Kyle DPM [STAFF PHYSICIAN] - Mesfin Ramos PA [Primary Care Provider] -
== END 2019-12-04 22:31 | disposition home or self-care (01) ==
PROVIDERS: Emergency Provider Emergency Medicine; PCP Physician Assistant
DX: S90.31XA Contusion of right foot, initial encounter (principal); W22.8XXA Striking against or struck by other objects, initial encounter; Y93.9 Activity, unspecified; Y92.9 Unspecified place or not applicable; Y99.9 Unspecified external cause status; Z72.0 Tobacco use
CPT/HCPCS: 73630; 99282

== ENCOUNTER 2020-01-21 23:31 | Emergency (ER) | payer MEDICAID, SELFPAY ==
[2020-01-21 23:32] VITALS: BP 117/72; PULSE 114; RESP 15; TEMP 36.6; O2SAT 97; BMI 31.7
[2020-01-21 23:42] VITALS: BP 117/72; PULSE 114; RESP 15; TEMP 36.6; O2SAT 97
[2020-01-21] MEDS: 0.9% Normal Saline 1,000 ML 1000 ML IV (23:44)
[2020-01-21] MEDS: Ondansetron 4 MG/2 ML Vial IV (23:46)
[2020-01-21] MEDS: Morphine 4 MG/ML Syringe IV (23:46)
[2020-01-21 23:52] LABS: Absolute Lymphocyte Count 2.63 X10^3/uL (0.83-4.51); Absolute Neutrophil Count 5.3 X10^3/uL (2.0-7.7); Basophil# 0.06 X10^3/uL; Basophil% 0.7 % (0-1); Eosinophil# 0.27 X10^3/uL; Hematocrit 43.5 % (37-47); Hemoglobin 13.8 g/dL (12.0-15.0); Lymphocyte # 2.63 X10^3/ul (4.0); Lymphocyte % 29.6 % (19-41); Mean Corp Hgb Conc 31.7 g/dL (32-36); Mean Corpuscular Hgb 28.5 pg (27.0-32.0); Mean Corpuscular Volume 89.9 fL (81-99); Monocyte# 0.66 X10^3/uL; Monocyte% 7.4 % (0-10); NRBC Flagged by Analyzer 0 % (0-5); Neutrophil # 5.25 X10^3/uL (2.7-7.7); Platelet Count 254 K/mm3 (150-450); RBC Distribution Width SD 45.8 fl (35.1-43.9); Red Blood Count 4.84 M/mm3 (4.2-5.4); White Blood Count 8.9 K/mm3 (4.4-11.0)
[2020-01-22 00:02] LABS: Internal QC Validated? YES +Cl - CLEAR BKGD; Pregnancy, Serum, hCG Quali. NEGATIVE Negative
[2020-01-22 00:09] LABS: ALB/GLOB Ratio 0.9 RATIO (0.9-2.4); AST(SGOT) 23 U/L (15-37); Alanine Aminotransfer ALT/SGPT 25 U/L (13-56); Albumin, Serum 3.6 g/dL (3.2-5.0); Alkaline Phosphatase 101 U/L (45-117); Anion Gap 4 (5-15); BUN 14 mg/dL (7-18); BUN/Creat Ratio 14.8 RATIO (10-20); Calcium,Total 9.8 mg/dL (8.5-10.1); Chloride 113 mmol/L (98-107); Creatinine, Serum 0.94 mg/dL (0.55-1.02); EST Glomerular Filtration Rate 70 mL/min (>60); Est Glom Filt Rate - Afr Amer 84 mL/min (>60); Estimated Creatinine Clearance 65.81 ml/min; Globulin 3.9 g/dL (2.2-4.2); Glucose 107 mg/dL (74-106); Lipase 102 U/L (73-393); Potassium 4.5 mmol/L (3.5-5.1); Protein, Total 7.5 g/dL (6.4-8.2); Sodium Level 145 mmol/L (136-145)
[2020-01-22 00:10] LABS: Color, Urine Yellow (Yellow); Glucose, Dipstick Normal (Normal); Ketone-Dipstick Negative (Negative); Leukocyte Esterase-Dipstick Negative /ul (Negative); Nitrite-Dipstick Negative (Negative); Occult Blood-Urine Negative /ul (Negative); Protein-Dipstick Negative (Negative); Urine Bilirubin Dipstick Negative (Negative); Urine Clarity Clear (Clear); Urine Urobilinogen Normal (Normal)
--- NOTE | 2020-01-22 00:10 | CT_ITS ---
We are attempting to reach an attending provider to discuss findings. An addendum with communication details will be sent when the communication is complete. STUDY: CT ABDOMEN AND PELVIS WITHOUT CONTRAST REASON FOR EXAM: Female, 39 years old. LOW ABD PAIN. Hx of multiple bowel surgeries, appendectomy, hysterectomy(ovaries as well), abd reconstruction 2009 RADIATION DOSAGE (If Supplied By Facility): CTDIvol = ( 11.74 ) mGy, DLP = ( 627.82 ) mGycm TECHNIQUE: Transaxial images were obtained from the dome of the diaphragm to the symphysis pubis without oral contrast, and without intravenous contrast. Sagittal and coronal images were reconstructed. Individualized dose optimization techniques were used for this CT. COMPARISON: November 23, 2019 CT scan abdomen and pelvis, September 29, 2018, CT abdomen and pelvis October 09, 2019 CT abdomen and pelvis FINDINGS: There are focal areas of subtle groundglass opacity within the lung bases. TThis is similar to the prior study on the left side. Slightly greater on the right. The visualized portions of the heart are within normal limits. Normal liver. Normal gallbladder and extrahepatic biliary system. Normal spleen. Normal pancreas. Normal bilateral adrenal glands. Normal right kidney. Normal left kidney. Normal visualized stomach. There is a loop of abnormally distended small bowel within the left and midline abdomen. This is associated with a previous area of surgery and anastomosis. There is a minimally distended appearance October 08 of the anastomosis. November 23, 2019 there is greater distention of several associated small bowel loops. Now there is a distended abnormal small bowel loop with a fecal stasis appearance which is associated with the anastomosis with adjacent abnormally distended small bowel loops. There is a relative decompressed appearance of the most proximal small bowel loops and the distal small bowel loops. There is a relative decompressed appearance of the remainder of the colon compared to these bowel loops. There is a loop of tortuous bowel within the fat in the pelvis. There is non-visualization of the appendix. Normal abdominal aorta. Normal inferior vena cava. Normal retroperitoneum. Normal urinary bladder. There is absence of the uterus consistent with a prior hysterectomy. Normal abdominal wall. There is minimal degenerative change in the thoracolumbar spine. CT/Abdomen/Pelvis without Cont IMPRESSION: Findings are suspicious for a closed loop obstruction near the anastomosis likely due to adhesions where there is a distended appearance of the small bowel with a fecal stasis appearance measuring up to 4.7 cm. There is visualized bilateral lower lobe groundglass opacities which have a similarity on the left side to multiple prior studies dating back to September 29, 2018. This may be associated chronic atelectasis possible air trapping. Recommend correlation with pulmonary symptoms. Status post hysterectomy. Status post appendectomy. Postoperative change status post partial small bowel resection. Electronically Signed: Kathy aMrtin MD at 0:47 EDT Tel , Service support ,
[2020-01-22 00:11] LABS: Bacteria 0 SEEN /hpf (None Seen); Mucous, Urine 0 SEEN /hpf (<or=2+); Red Blood Cells-Urine 0 SEEN /hpf (0-5); White Blood Cells 0 SEEN /hpf (0-5)
[2020-01-22 00:16] LABS: Squamous Epithelial Cells - UA 0-5 SEEN /hpf (5-10)
--- NOTE | 2020-01-22 00:25 | ED.DCSUM_ITS ---
- ER Visit Summary Date of Service: 01/22/20 Chief Complaint: Abdominal pain History of Present Illness: The patient is a 39 F who sees Gamaliel Ramos and her surgeon is Dr. Chang at [facility]. She has a history of multiple abdominal surgeries including a partial colectomy. She is had recurrent small bowel obstructions. Patient reports that she has abdominal pain that began yesterday at 5 PM. Says sharp, aching, cramping pain is 10 of 10 severity. Is worsened by movement relieved by crouching on the floor. Patient denies nausea or vomiting. Her last bowel was today. She is passing flatus still. However, it is less than usual. Denies any dysuria or frequency. She is status post hysterectomy. Physical Examination: Vitals: Stable. Afebrile. General: Well-nourished and well-developed. Head: Normocephalic atraumatic. Neck: Supple, no lymphadenopathy. No JVD. Nontender. Cardiovascular: Regular rate and rhythm. No murmurs. Respiratory: No respiratory distress. Clear to auscultation bilaterally. Abdominal: Soft, severe tenderness palpation that is diffuse over the upper abdomen. Hypoactive bowel sounds with distention.. Back: Nontender. Extremities: Nontender, no edema. Skin: Normal color, no rash. Neurologic: Alert and oriented ?3. Cranial nerves II through XII are intact. Normal strength and sensation. Psych: Normal affect. Test Results: CBC is normal. Chem-7 shows a chloride of 113 and glucose 107. LFTs normal. Lipase normal. UA is negative. Clinical Impression(s) from Imaging Studies Abdomen/Pelvis CT 01/22/20 00:10 IMPRESSION: Findings are suspicious for a closed loop obstruction near the anastomosis likely due to adhesions where there is a distended appearance of the small bowel with a fecal stasis appearance measuring up to 4.7 cm. There is visualized bilateral lower lobe groundglass opacities which have a similarity on the left side to multiple prior studies dating back to September 29, 2018. This may be associated chronic atelectasis possible air trapping. Recommend correlation with pulmonary symptoms. Status post hysterectomy. Status post appendectomy. Postoperative change status post partial small bowel resection. Electronically Signed: Kathy Martin MD at 0:47 EDT Tel , Service support , ADDENDUM: 01/22/20 0113 IMPRESSION: Findings are suspicious for a closed loop obstruction near the anastomosis likely due to adhesions where there is a distended appearance of the small bowel with a fecal stasis appearance measuring up to 4.7 cm. There is visualized bilateral lower lobe groundglass opacities which have a similarity on the left side to multiple prior studies dating back to September 29, 2018. This may be associated chronic atelectasis possible air trapping. Recommend correlation with pulmonary symptoms. Status post hysterectomy. Status post appendectomy. Postoperative change status post partial small bowel resection. N.B. : The above information has been verbally conveyed by Kathy Martin MD to Santiago Salgado MD, on 01/22/2020 01:06:25 (ET). Electronically Signed: Kathy Martin MD at 0:47 EDT Tel , Service support , Emergency Department Course and Treatment: Patient was treated morphine and Zofran. She is resting more comfortably. Treatment Plan: The patient was discussed with Dr. Kevin. She asked the patient be transferred to a tertiary care center. Patient was discussed with [facility] and will be transferred there for further evaluation and treatment. Disposition: Transferred in improved condition. Impression: 1. Small bowel obstruction. 2. History of multiple abdominal surgeries. This note was generated with [employer] dictation software. It may contain incorrect words, spelling, and punctuation that were not noted in review of the chart prior to signing ED Disposition - Plan for ED Patient: Referrals: Mesfin Ramos PA [Primary Care Provider] -
[2020-01-22 01:07] VITALS: BP 130/110; PULSE 80; RESP 15; O2SAT 94
[2020-01-22] MEDS: Morphine 4 MG/ML Syringe IV (01:07)
[2020-01-22 02:27] VITALS: BP 109/65; PULSE 80; RESP 15; TEMP 36.6; O2SAT 97
== END 2020-01-22 02:30 | disposition short-term general hospital (02) ==
LOC: ED 23:53
PROVIDERS: Emergency Provider Emergency Medicine; PCP Physician Assistant
DX: K56.609 Unspecified intestinal obstruction, unspecified as to partial versus complete obstruction (principal); Z72.0 Tobacco use; Z90.49 Acquired absence of other specified parts of digestive tract; Z90.710 Acquired absence of both cervix and uterus; Z98.890 Other specified postprocedural states
CPT/HCPCS: 74176; 80053; 81001; 83690; 84703; 85025; 96361; 96374; 96375; 99281; J7030; A4216; J2405

== ENCOUNTER 2020-04-23 14:27 | Emergency (ER) | payer MEDICAID, SELFPAY ==
[2020-04-23 14:27] VITALS: BP 126/47; PULSE 106; RESP 15; TEMP 36.3; O2SAT 97; BMI 31.5
--- NOTE | 2020-04-23 14:56 | CT_ITS ---
STUDY: CT ABDOMEN AND PELVIS WITH CONTRAST REASON FOR EXAM: Female, 39 years old. Abdomen pain since yesterday, hx bowel obstructions. Prior ALICIA/BSO, large and small bowel resections, appendectomy, cholecystectomy, abdomen reconstruction. RADIATION DOSAGE (If Supplied By Facility): CTDIvol = ( 14.38 ) mGy, DLP = ( 988.49 ) mGycm TECHNIQUE: Transaxial images were obtained from the dome of the diaphragm to the symphysis pubis with oral contrast. 100mL Isovue 300 was administered. Sagittal and coronal images were reconstructed. Individualized dose optimization techniques were used for this CT. COMPARISON: January 22, 2020. FINDINGS: Bilateral lower lung airspace consolidation. The visualized portions of the heart are within normal limits. There is hepatomegaly with diffuse hepatic enlargement. Normal gallbladder and extrahepatic biliary system. Normal spleen. Normal pancreas. Normal bilateral adrenal glands. Normal right kidney. Normal left kidney. Normal visualized stomach. There are dilated loops of the small intestine with a non-distended colon consistent with a small bowel obstruction. There is transition point adjacent to postoperative change in the left lower quadrant. Normal colon. There is non-visualization of the appendix. Normal abdominal aorta. Normal inferior vena cava. Normal retroperitoneum. Normal urinary bladder. There is absence of the uterus consistent with a prior hysterectomy. There is no free fluid in the abdomen or pelvis. There is postoperative change of the abdominal wall. Normal osseous structures. CT/Abdomen/Pelvis WITH Contrast IMPRESSION: Small bowel obstruction with transition point adjacent to postoperative change in the left lower quadrant. Lower lung infiltrates or atelectasis. Electronically Signed: Arie Prince MD at 17:24 EST , Service support ,
--- NOTE | 2020-04-23 14:57 | ED.VIS.GEN ---
History of Present Illness Chief Complaint: Abd Pain Narrative: This patient is a 39-year-old female who presents with abdominal pain. She describes this as sharp and feeling like she is being stabbed over and over again. She states this is diffuse throughout her entire abdomen and not focal. She does have a history of chronic abdominal pain she always has some abdominal pain but this is been worse since last night. She has a history of multiple abdominal surgeries including hysterectomy appendectomy and laparotomies for bowel obstruction. She was seen here in January and had a closed loop bowel obstruction. She was transferred down to [facility]. She states she did have surgery. She does not know who did her surgery what exactly was done or if there was any bowel resection. Besides her pain currently she has no associated symptoms. She denies nausea or vomiting. No diarrhea or constipation. She does continue bowel movements and flatus. Past Medical History - Allergies and Home Meds Allergies/Adverse Reactions: Allergies hydromorphone HCl [From Dilaudid] Allergy (Severe, Verified 04/23/20 14:29) Anaphylaxis aspirin [From Percodan] Allergy (Intermediate, Verified 04/23/20 14:29) Swelling oxycodone terephthalate [From Percodan] Allergy (Intermediate, Verified 04/23/20 14:29) Swelling amoxicillin Allergy (Verified 04/23/20 14:29) Hives azithromycin Allergy (Verified 04/23/20 14:29) Other erythromycin base Allergy (Verified 04/23/20 14:29) Hives oxycodone HCl [From Percocet] Allergy (Verified 04/23/20 14:29) Anaphylaxis propoxyphene napsylate [From Darvocet-N] Allergy (Verified 04/23/20 14:29) Other Sulfa (Sulfonamide Antibiotics) Allergy (Verified 04/23/20 14:29) Other tramadol Allergy (Verified 04/23/20 14:29) Hives Primary Care Physician: Mesfin Ramos PA [Primary Care Provider] - Past Medical History: - - Hyperlipidemia Surgical History: appendectomy, cholecystectomy, hysterectomy, - - Small bowel reconstruction Smoking Status: Current every day smoker - Family History Paternal Family History: Reports: Cancer, Diabetes, - - luekemia, strokes. Maternal Family History: Reports: Cancer Review of Systems All systems negative except as indicated General: Denies: Fever Eyes: Denies: Visual changes - bilaterally ENT: Denies: Bilateral ear pain Cardiovascular: Denies: Chest pain Respiratory: Denies: Dyspnea Gastrointestinal: Reports: Abdominal pain. Denies: Nausea, Vomiting Musculoskeletal: Denies: Myalgias, Arthralgias Skin: Denies: Rash Neurological: Denies: Headache Hematologic: Denies: Easy bruising Allergy: Denies: Uticaria Physical Exam Vital Signs/Narrative: Vital Signs Temp Pulse Resp BP Pulse Ox 04/23/20 14:27 97.3 F L 106 H 15 126/47 H 97 Inital Vital Signs reviewed: Yes General: Well nourished Head: Normocephalic Eyes: EOMI ENT: Moist mucous membranes Neck: Supple Cardiovascular: Regular rhythm, Tachycardia Respiratory: No distress, CTA bilaterally Abdomen: Soft, - - Laparotomy surgical scar and laparoscopy surgical scars noted. Abdomen is nondistended. She has diffuse nonfocal abdominal tenderness without guarding without rebound. Bowel sounds are normal. Skin: Normal color Neurological: Alert Psychological: Normal affect Diagnostic/Tx/Re-eval Impressions Abdomen/Pelvis CT 04/23/20 14:56 IMPRESSION: Small bowel obstruction with transition point adjacent to postoperative change in the left lower quadrant. Lower lung infiltrates or atelectasis. Electronically Signed: Arie Prince MD at 17:24 EST , Service support , ADDENDUM: 04/23/20 1823 IMPRESSION: Small bowel obstruction with transition point adjacent to postoperative change in the left lower quadrant. Lower lung infiltrates or atelectasis. N.B. : MARGIE Eagle, confirmed on 04/23/2020 18:16:20 (ET) that the healthcare facility has received the radiology report. Electronically Signed: Arie Prince MD at 17:24 EST , Service support , 04/23/20 14:56 Abdomen/Pelvis WITH Contrast [CT] Stat 04/23/20 17:45 Mucosa - Nose SARS-CoV-2 Antigen (Rapid) - Final Laboratory Results 04/23/20 04/23/20 15:15 15:15 WBC 6.6 RBC 4.29 Hgb 12.0 Hct 38.5 MCV 89.7 MCH 28.0 MCHC 31.2 L RDW Std Deviation 44.4 H RDW Coeff of Yovana 13.5 Plt Count 272 MPV 9.8 Immature Gran % (Auto) 0.300 Neut % (Auto) 57.2 Lymph % (Auto) 29.1 Isabela % (Auto) 8.1 Eos % (Auto) 4.4 Baso % (Auto) 0.9 Absolute Neuts (auto) 3.8 Absolute Lymphs (auto) 1.93 Nucleated RBC % 0 Sodium 142 Potassium 4.1 Chloride 108 H Carbon Dioxide 31.0 Anion Gap 3 L BUN 12 Creatinine 0.95 Estim Creat Clear Calc 65.12 Est GFR (MDRD) Af Amer 84 Est GFR (MDRD) Non-Af 69 BUN/Creatinine Ratio 12.7 Glucose 91 Calcium 9.0 Total Bilirubin 0.30 AST 20 ALT 39 Alkaline Phosphatase 114 Total Protein 7.0 Albumin 3.2 Globulin 3.8 Albumin/Globulin Ratio 0.8 L Lipase 66 L - Medical Decision Making Patient was symptomatically treated with IV fluids, morphine, Zofran. Serum laboratory studies are unremarkable but CT of the abdomen and pelvis does show a small bowel obstruction with transition point near the postoperative changes. Given the patient had surgery just in January for a bowel obstruction and all of her previous surgical care has been at [facility] I recommended transfer back to that facility. I did speak to the transfer line. I was advised that the surgeon himself was busy in surgery but then received a call back to the patient been accepted. ED Disposition - Plan for ED Patient: Disposition: [facility] Diagnosis: Small bowel obstruction Referrals: Mesfin Ramos, PA [Primary Care Provider] -
[2020-04-23] MEDS: Morphine 4 MG/ML Syringe IV ×2 (15:19→20:39)
[2020-04-23] MEDS: Ondansetron 4 MG/2 ML Vial IV (15:19)
[2020-04-23 15:34] LABS: Absolute Lymphocyte Count 1.93 X10^3/uL (0.83-4.51); Absolute Neutrophil Count 3.8 X10^3/uL (2.0-7.7); Basophil# 0.06 X10^3/uL; Basophil% 0.9 % (0-1); Eosinophil# 0.29 X10^3/uL; Eosinophils% 4.4 % (0-5); Hematocrit 38.5 % (37-47); Lymphocyte # 1.93 X10^3/ul (4.0); Lymphocyte % 29.1 % (19-41); Mean Corp Hgb Conc 31.2 g/dL (32-36); Mean Corpuscular Volume 89.7 fL (81-99); Mean Platelet Vol. 9.8 fl (6.2-12.0); Monocyte# 0.54 X10^3/uL; Monocyte% 8.1 % (0-10); NRBC Flagged by Analyzer 0 % (0-5); Neutrophil # 3.79 X10^3/uL (2.7-7.7); Neutrophil % 57.2 % (47-70); Platelet Count 272 K/mm3 (150-450); RBC Distribution Width CV 13.5 % (11.6-14.6); RBC Distribution Width SD 44.4 fl (35.1-43.9); Red Blood Count 4.29 M/mm3 (4.2-5.4); White Blood Count 6.6 K/mm3 (4.4-11.0)
[2020-04-23 15:51] LABS: ALB/GLOB Ratio 0.8 RATIO (0.9-2.4); AST(SGOT) 20 U/L (15-37); Alanine Aminotransfer ALT/SGPT 39 U/L (13-56); Albumin, Serum 3.2 g/dL (3.2-5.0); Alkaline Phosphatase 114 U/L (45-117); Anion Gap 3 (5-15); BUN 12 mg/dL (7-18); BUN/Creat Ratio 12.7 RATIO (10-20); Chloride 108 mmol/L (98-107); Creatinine, Serum 0.95 mg/dL (0.55-1.02); EST Glomerular Filtration Rate 69 mL/min (>60); Est Glom Filt Rate - Afr Amer 84 mL/min (>60); Estimated Creatinine Clearance 65.12 ml/min; Globulin 3.8 g/dL (2.2-4.2); Glucose 91 mg/dL (74-106); Lipase 66 U/L (73-393); Potassium 4.1 mmol/L (3.5-5.1); Sodium Level 142 mmol/L (136-145)
[2020-04-23 17:16] VITALS: BP 102/73; PULSE 76; RESP 16; O2SAT 97
[2020-04-23 20:35] VITALS: BP 110/78; PULSE 78; RESP 16; O2SAT 97
== END 2020-04-23 22:29 | disposition short-term general hospital (02) ==
PROVIDERS: Emergency Provider Emergency Medicine; PCP Physician Assistant
DX: K56.609 Unspecified intestinal obstruction, unspecified as to partial versus complete obstruction (principal); E78.5 Hyperlipidemia, unspecified; F17.200 Nicotine dependence, unspecified, uncomplicated; Z90.49 Acquired absence of other specified parts of digestive tract; Z90.710 Acquired absence of both cervix and uterus
CPT/HCPCS: 74177; 80053; 83690; 85025; 87426; 96374; 96375; 96376; 99283; Q9967; A4216; J2405

== ENCOUNTER 2020-11-24 18:38 | Emergency (ER) | payer MEDICAID, SELFPAY ==
[2020-11-24 18:40] VITALS: BP 136/84; PULSE 87; RESP 16; TEMP 36.3; O2SAT 97; BMI 32.2
--- NOTE | 2020-11-24 19:23 | CT_ITS ---
HISTORY: Abdominal pain EXAMINATION: CT Abdomen And Pelvis W/ Contrast Injection TECHNIQUE: Helically acquired images were obtained of the abdomen and pelvis following IV contrast. A radiation dose optimization technique was used for this scan. IV Contrast dosage and agent: 100mL Isovue-370 Oral contrast: None. COMPARISON: 04/23/20 FINDINGS: LOWER CHEST: Bibasilar dependent and/or fibrotic changes. No cardiomegaly or pericardial effusion. LIVER: Homogeneous. No focal mass. GALLBLADDER AND BILIARY TREE: No calcified gallstones. No gallbladder distension or wall edema. No intra- or extrahepatic biliary ductal dilation. PANCREAS: No focal cystic or solid mass. SPLEEN: Normal size without focal cystic or solid mass. ADRENAL GLANDS: No nodules. KIDNEYS AND URETERS: Normal renal size and position. No hydronephrosis. PERITONEUM: No ascites or free air. BOWEL: No evidence of acute appendicitis. No stomach or proximal bowel distension. Persistent distal small bowel dilatation with increased fluid contents at the anastomosis with the colon in the left lower quadrant. Large bowel is decompressed. No focal inflammatory bowel wall changes. LYMPH NODES: No enlarged mesenteric or retroperitoneal lymph nodes. VESSELS: Aorta is non-dilated. URINARY BLADDER: Unremarkable. REPRODUCTIVE ORGANS: No pelvic masses. Uterus absent. ABDOMINAL WALL: No discrete abdominal or pelvic wall hernia. BONES: No acute or aggressive abnormality. CT/Abdomen/Pelvis W IV Cont ONLY IMPRESSION: Persistent and likely chronic focal small bowel dilatation proximal to the anastomotic sutures in the left lower quadrant. A degree of chronic mechanical obstruction at this location cannot be excluded. Proximal small bowel and stomach are not distended. Otherwise no acute findings in the abdomen or pelvis. Individualized dose optimization techniques were used for this CT. at 2103 Reported and signed by: Taurus Duke MD Electronically Signed: Taurus Duke MD at 21:02 EDT Tel , Service support ,
[2020-11-24 19:52] LABS: Absolute Lymphocyte Count 2.13 X10^3/uL (0.83-4.51); Absolute Neutrophil Count 4.3 X10^3/uL (2.0-7.7); Basophil# 0.05 X10^3/uL; Basophil% 0.7 % (0-1); Eosinophil# 0.19 X10^3/uL; Eosinophils% 2.6 % (0-5); Hematocrit 40.4 % (37-47); Hemoglobin 12.4 g/dL (12.0-15.0); Lymphocyte # 2.13 X10^3/ul (0.83-4.51); Lymphocyte % 29.7 % (19-41); Mean Corp Hgb Conc 30.7 g/dL (32-36); Mean Corpuscular Hgb 26.6 pg (27.0-32.0); Mean Corpuscular Volume 86.5 fL (81-99); Mean Platelet Vol. 9.6 fl (6.2-12.0); Monocyte# 0.45 X10^3/uL; Monocyte% 6.3 % (0-10); NRBC Flagged by Analyzer 0 % (0-5); Neutrophil # 4.32 X10^3/uL (2.7-7.7); Neutrophil % 60.3 % (47-70); Platelet Count 247 K/mm3 (150-450); RBC Distribution Width CV 15.1 % (11.6-14.6); RBC Distribution Width SD 47.8 fl (35.1-43.9); Red Blood Count 4.67 M/mm3 (4.2-5.4); White Blood Count 7.2 K/mm3 (4.4-11.0)
[2020-11-24] MEDS: 0.9% Normal Saline 1,000 ML 999 ML IV (19:56)
[2020-11-24] MEDS: Morphine 4 MG/ML Syringe IV (19:57)
[2020-11-24] MEDS: Ondansetron 4 MG/2 ML Vial IV (19:57)
[2020-11-24 20:19] LABS: AST(SGOT) 23 U/L (15-37); Alanine Aminotransfer ALT/SGPT 34 U/L (13-56); Albumin, Serum 3.5 g/dL (3.2-5.0); Alkaline Phosphatase 115 U/L (45-117); Anion Gap 5 (5-15); BUN 9 mg/dL (7-18); BUN/Creat Ratio 10.8 RATIO (10-20); Bilirubin, Direct 0.07 mg/dL (0.00-0.30); Calcium,Total 8.9 mg/dL (8.5-10.1); Chloride 109 mmol/L (98-107); Creatinine, Serum 0.84 mg/dL (0.55-1.02); EST Glomerular Filtration Rate 80 mL/min (>60); Est Glom Filt Rate - Afr Amer 97 mL/min (>60); Estimated Creatinine Clearance 72.91 ml/min; Globulin 3.6 g/dL (2.2-4.2); Glucose 93 mg/dL (74-106); Lipase 65 U/L (73-393); Potassium 3.9 mmol/L (3.5-5.1); Protein, Total 7.1 g/dL (6.4-8.2); Sodium Level 143 mmol/L (136-145)
[2020-11-24 20:30] LABS: Lactic Acid 0.9 mmol/L (0.4-1.9)
[2020-11-24 20:53] VITALS: RESP 17
--- NOTE | 2020-11-24 22:47 | EDS_ITS ---
HPI History of Present Illness Chief Complaint: Abd Pain Narrative Narrative: Patient is a 40-year-old female who states she has a history of recurrent abdominal pain. She states that for the past few days she has had generalized abdominal pain from her rib cage down to her pelvis. She reports she will have bouts of nausea and diarrhea with this. She states that she also has thrown up a few time. She reports that she does have a history of bowel obstruction in the past and with concern for this presents for evaluation. [facility] Medical History Bowel obstruction Iron deficiency anemia Home Medications NK 11/23/19 [History Last Taken Unknown] Allergy/AdvReac Type Severity Reaction Status Date / Time hydromorphone HCl Allergy Severe Anaphylaxis Verified 11/24/20 18:39 [From Dilaudid] aspirin [From Percodan] Allergy Intermediate Swelling Verified 11/24/20 18:39 oxycodone terephthalate Allergy Intermediate Swelling Verified 11/24/20 18:39 [From Percodan] amoxicillin Allergy Hives Verified 11/24/20 18:39 azithromycin Allergy Other Verified 11/24/20 18:39 erythromycin base Allergy Hives Verified 11/24/20 18:39 oxycodone HCl [From Percocet] Allergy Anaphylaxis Verified 11/24/20 18:39 propoxyphene napsylate Allergy Other Verified 11/24/20 18:39 [From Darvocet-N] Sulfa (Sulfonamide Allergy Other Verified 11/24/20 18:39 Antibiotics) tramadol Allergy Hives Verified 11/24/20 18:39 Surgical History (Updated 11/24/20 @ 20:00 by Kaela Shirley RN) H/O: hysterectomy History of appendectomy Social History Smoking Status: Former smoker ROS ROS ED Constitutional Constitutional ED: Denies chills or fever(s) ENT ENT ED: Denies sore throat Cardiovascular Cardiovascular: Denies chest pain or palpitations Respiratory/Chest Respiratory/Chest: Denies cough or dyspnea Gastrointestinal Gastrointestinal: Reports abdominal pain, diarrhea, nausea and vomiting Genitourinary Genitourinary ED: Denies dysuria Musculoskeletal Musculoskeletal: Denies myalgias Integumentary Denies rash Neurologic Neurologic: Denies headache(s) EXAM Physical Exam Const Vital Signs: 11/24/20 18:40 11/24/20 20:53 Temperature 97.4 F L Temperature Source Temporal Pulse Rate 87 Respiratory Rate 16 17 Blood Pressure 136/84 H Blood Pressure Mean 101 Pulse Ox 97 Oxygen Delivery Method Room Air Positive well nourished and well developed General Appearance ED: well developed HEENT HEENT Narrative: Mucous membranes are slightly dry and tacky Eyes PERRL and EOMs intact bilaterally Neck supple Resp normal respiratory effort and clear to auscultation bilaterally Cardio regular rate, regular rhythm and no murmurs Rate: other Other Details: Radial pulses are +2-4 bilaterally are equal and symmetric GI GI Narrative: Abdomen is soft and nondistended with hypoactive bowel sounds. There is mild pain with palpation but no voluntary guarding no rigidity no pulsatile mass. No increased tympany noted Extremity Extremity Narrative: No asymmetric edema no pitting edema negative Homans' sign bilaterally Neuro oriented x3 and CN's II-XII intact bilaterally Sensorium / Orientation: alert Psych mental status grossly normal Skin no rashes or lesions noted MDM MDM MDM Narrative Medical decision making narrative: Patient presented to the ER afebrile and her abdominal exam did not suggest acute obstruction or ileus but with her past medical history of this I did elect to perform basic labs and a CT scan. Labs reveal no clinically significant finding. The CT scan did show changes of mild dilation without any type of focal obstruction and radiologist reports he believes this is more chronic in nature. On reevaluation the patient's had no bouts of vomiting while in the ER her abdomen remains nondistended and soft and therefore do not feel there is need for placement in the hospital at this time. Therefore patient will be discharged and she will follow up with her physicians as she has scheduled for the next week Lab Data Labs: Laboratory Results - last 24 hr 11/24/20 11/24/20 11/24/20 19:46 19:46 19:46 WBC 7.2 RBC 4.67 Hgb 12.4 Hct 40.4 MCV 86.5 MCH 26.6 L MCHC 30.7 L RDW Std Deviation 47.8 H RDW Coeff of Yovana 15.1 H Plt Count 247 MPV 9.6 Immature Gran % (Auto) 0.400 Neut % (Auto) 60.3 Lymph % (Auto) 29.7 Power % (Auto) 6.3 Eos % (Auto) 2.6 Baso % (Auto) 0.7 Absolute Neuts (auto) 4.3 Absolute Lymphs (auto) 2.13 Nucleated RBC % 0 Sodium 143 Potassium 3.9 Chloride 109 H Carbon Dioxide 29.0 Anion Gap 5 BUN 9 Creatinine 0.84 Estim Creat Clear Calc 72.91 Est GFR (MDRD) Af Amer 97 Est GFR (MDRD) Non-Af 80 BUN/Creatinine Ratio 10.8 Glucose 93 Lactic Acid 0.9 Calcium 8.9 Total Bilirubin 0.30 Direct Bilirubin 0.07 AST 23 ALT 34 Alkaline Phosphatase 115 Total Protein 7.1 Albumin 3.5 Globulin 3.6 Lipase 65 L Radiography Diagnostic Testing: Radiology Impression Abdomen/Pelvis CT 11/24/20 19:23 IMPRESSION: Persistent and likely chronic focal small bowel dilatation proximal to the anastomotic sutures in the left lower quadrant. A degree of chronic mechanical obstruction at this location cannot be excluded. Proximal small bowel and stomach are not distended. Otherwise no acute findings in the abdomen or pelvis. Individualized dose optimization techniques were used for this CT. at 2103 Reported and signed by: Taurus Duke MD Electronically Signed: Taurus Duke MD at 21:02 EDT Tel , Service support , Discharge Plan Triage Chief Complaint: Abd Pain ED Provider: Lats Lucia Dx/Rx/DC Orders Clinical Impression: Nonspecific abdominal pain Instructions: Abdominal Pain Prescriptions: No Action NK RF: 0 Primary Care Provider: Mesfin Ramos Referrals: Mesfin Ramos PA [Primary Care Provider] - 3-5 Days if not improving Disposition Disposition: Home, Self Care
== END 2020-11-24 23:00 | disposition home or self-care (01) ==
PROVIDERS: Emergency Provider Emergency Medicine; PCP Physician Assistant
DX: R10.84 Generalized abdominal pain (principal); Z87.891 Personal history of nicotine dependence
CPT/HCPCS: 74177; 80048; 80076; 83605; 83690; 85025; 96361; 96374; 96375; 99283; J7030; Q9967; J2405

== ENCOUNTER 2021-02-22 15:31 | Emergency (ER) | payer MEDICAID, SELFPAY ==
[2021-02-22 15:33] VITALS: BP 124/89; PULSE 79; RESP 20; TEMP 35.9; O2SAT 98; BMI 31.6
--- NOTE | 2021-02-22 15:41 | CT_ITS ---
STUDY: CT ABDOMEN AND PELVIS WITH CONTRAST REASON FOR EXAM: Female, 40 years old. abd pain -- IV PO Contrast RADIATION DOSAGE (If Supplied By Facility): CTDIvol = ( 18.74 ) mGy, DLP = ( 1076.75 ) mGycm TECHNIQUE: Transaxial images were obtained from the dome of the diaphragm to the symphysis pubis without oral contrast. ISOVUE 370 100 mL was administered. Sagittal and coronal images were reconstructed. Individualized dose optimization techniques were used for this CT. COMPARISON: None. FINDINGS: Mild atelectasis in the lung bases. The visualized portions of the heart are within normal limits. Normal liver. Normal gallbladder and extrahepatic biliary system. Normal spleen. Normal pancreas. Normal bilateral adrenal glands. Normal right kidney. Normal left kidney. Normal visualized stomach. Small bowel anastomosis in the left lower quadrant with stable, similar dilation. Normal colon. The appendix is visualized and appears normal. Normal abdominal aorta. Normal inferior vena cava. Normal retroperitoneum. Normal urinary bladder. Operative changes of the anterior midline abdominal wall. No destructive bony process. CT/Abdomen/Pelvis WITH Contrast IMPRESSION: 1. Stable exam. No acute inflammatory process, ascites or pneumoperitoneum. 2. Left lower quadrant small bowel anastomosis with stable bowel dilation (no adjacent enteric edema/stranding). Electronically Signed: Rolo Lebron MD (Brooks) at 17:53 EST , Service support ,
--- NOTE | 2021-02-22 15:42 | EX.ED.DYSGE1 ---
HPI History of Present Illness Chief Complaint: Abd Pain Informant: patient Onset/Context/Timing Onset: Days (3-day) Context: Gradual Onset Timing: Waxes and wanes Current Severity: Moderate Maximum Severity: Severe Narrative Narrative: Patient presents with 3-day history of abdominal pain. Pain is diffuse in location. She denies fever or chills. She reports nausea with one episode of vomiting on the . She has been able to urinate and had a normal bowel movement this morning. She does have a history of multiple abdominal surgeries including appendectomy, hysterectomy, 2 operations for bowel obstruction. PFSH PFS Medical History Bowel obstruction Iron deficiency anemia Home Medications colestipol 1 g PO BID 02/22/21 [History Last Taken Unknown] hydrocodone-acetaminophen 1 tab PO Q6H PRN 3 Days #10 tab 02/22/21 [Rx Last Taken Unknown] Allergy/AdvReac Type Severity Reaction Status Date / Time hydromorphone HCl Allergy Severe Anaphylaxis Verified 02/22/21 15:32 [From Dilaudid] aspirin [From Percodan] Allergy Intermediate Swelling Verified 02/22/21 15:32 oxycodone terephthalate Allergy Intermediate Swelling Verified 02/22/21 15:32 [From Percodan] amoxicillin Allergy Hives Verified 02/22/21 15:32 azithromycin Allergy Other Verified 02/22/21 15:32 erythromycin base Allergy Hives Verified 02/22/21 15:32 oxycodone HCl [From Percocet] Allergy Anaphylaxis Verified 02/22/21 15:32 propoxyphene napsylate Allergy Other Verified 02/22/21 15:32 [From Darvocet-N] Sulfa (Sulfonamide Allergy Other Verified 02/22/21 15:32 Antibiotics) tramadol Allergy Hives Verified 02/22/21 15:32 Surgical History H/O: hysterectomy History of appendectomy Social History Smoking Status: Former smoker ROS ROS ED Constitutional Constitutional ED: Denies chills or fever(s) Eyes Eyes: Denies change in vision ENT ENT ED: Denies sore throat Cardiovascular Cardiovascular: Denies chest pain Respiratory/Chest Respiratory/Chest: Denies cough or dyspnea Gastrointestinal Gastrointestinal: Reports abdominal pain, nausea and vomiting; Denies diarrhea Genitourinary Genitourinary ED: Denies dysuria Musculoskeletal Musculoskeletal: Denies back pain Integumentary Denies rash Neurologic Neurologic: Denies headache(s) or weakness Psychiatric Psychiatric: Denies anxiety or depression Allergic/Immunologic Allergic/Immunologic ED: Denies urticaria EXAM Physical Exam Const Vital Signs: 02/22/21 15:33 02/22/21 16:10 Temperature 96.7 F L 98.0 F Temperature Source Temporal Oral Pulse Rate 79 73 Respiratory Rate 20 H 17 Blood Pressure 124/89 H 120/81 H Blood Pressure Mean 100 94 Pulse Ox 98 94 Oxygen Delivery Method Room Air Room Air Positive well nourished and well developed General Appearance ED: well developed HEENT Reports moist mucous membranes Eyes PERRL and EOMs intact bilaterally Neck supple Chest Wall inspection of chest normal and palpation of chest normal Resp normal respiratory effort and clear to auscultation bilaterally Cardio regular rate and regular rhythm GI Auscultation: hypoactive bowel sounds Palpation: tender other (Diffuse); Negative for guarding or rebound tenderness present Extremity normal to inspection Neuro oriented x3 Sensorium / Orientation: alert Psych mental status grossly normal Skin no rashes or lesions noted MDM MDM MDM Narrative Medical decision making narrative: Patient was given morphine and Zofran for pain. Lab work and CT abdomen pelvis ordered. Lab Data Attestation: I reviewed the patient's lab results. Labs: Laboratory Results - last 24 hr 02/22/21 02/22/21 15:45 15:45 WBC 7.0 RBC 4.53 Hgb 12.3 Hct 38.9 MCV 85.9 MCH 27.2 MCHC 31.6 L RDW Std Deviation 46.0 H RDW Coeff of Yovana 14.6 Plt Count 245 MPV 10.0 Immature Gran % (Auto) 0.100 Neut % (Auto) 58.3 Lymph % (Auto) 30.1 [place] % (Auto) 7.9 Eos % (Auto) 3.0 Baso % (Auto) 0.6 Absolute Neuts (auto) 4.1 Absolute Lymphs (auto) 2.10 Nucleated RBC % 0 Sodium 143 Potassium 3.5 Chloride 111 H Carbon Dioxide 28.0 Anion Gap 4 L BUN 10 Creatinine 0.83 Estim Creat Clear Calc 73.79 Est GFR (MDRD) Af Amer 98 Est GFR (MDRD) Non-Af 81 BUN/Creatinine Ratio 12.1 Glucose 89 Calcium 8.9 Total Bilirubin 0.40 Direct Bilirubin 0.14 AST 22 ALT 36 Alkaline Phosphatase 124 H Total Protein 7.5 Albumin 3.5 Globulin 4.0 Lipase 86 Radiography Diagnostic Testing: Clinical Impression(s) from Imaging Studies Abdomen/Pelvis CT 02/22/21 15:41 IMPRESSION: 1. Stable exam. No acute inflammatory process, ascites or pneumoperitoneum. 2. Left lower quadrant small bowel anastomosis with stable bowel dilation (no adjacent enteric edema/stranding). Electronically Signed: Rolo Lebron MD (Brooks) at 17:53 EST , Service support , Treatment and Re-Evaluation Comments:: Lab work is unremarkable. CT scan reveals chronic changes from her prior surgeries but no acute findings. No evidence of bowel obstruction. Test results are discussed with the patient. She will be given a short course of Campbell. I did do an [facility] report: Her last prescription was greater than 1 year ago. She is instructed to follow bland diet and slowly advance. Discharge Plan Triage Chief Complaint: Abd Pain ED Provider: Mayuri Smith Dx/Rx/DC Orders Clinical Impression: Abdominal pain Instructions: ED Abdominal Pain Unkn Cause Fem Prescriptions: New hydrocodone-acetaminophen 5-325 mg tablet 1 tab PO Q6H PRN (Reason: pain) 3 Days Qty: 10 RF: 0 No Action colestipol 1 gram tablet 1 g PO BID RF: 0 Stand Alone Forms: ED Work / School Excuse Primary Care Provider: Mesfin Ramos Referrals: Mesfin Ramos, PA [Primary Care Provider] - 3-5 Days if not improving Disposition Disposition: Home, Self Care
[2021-02-22 15:58] LABS: Absolute Neutrophil Count 4.1 X10^3/uL (2.0-7.7); Basophil# 0.04 X10^3/uL; Basophil% 0.6 % (0-1); Eosinophil# 0.21 X10^3/uL; Hematocrit 38.9 % (37-47); Hemoglobin 12.3 g/dL (12.0-15.0); Lymphocyte % 30.1 % (19-41); Mean Corp Hgb Conc 31.6 g/dL (32-36); Mean Corpuscular Hgb 27.2 pg (27.0-32.0); Mean Corpuscular Volume 85.9 fL (81-99); Monocyte# 0.55 X10^3/uL; Monocyte% 7.9 % (0-10); NRBC Flagged by Analyzer 0 % (0-5); Neutrophil # 4.06 X10^3/uL (2.7-7.7); Neutrophil % 58.3 % (47-70); Platelet Count 245 K/mm3 (150-450); RBC Distribution Width CV 14.6 % (11.6-14.6); Red Blood Count 4.53 M/mm3 (4.2-5.4)
[2021-02-22] MEDS: 0.9% Normal Saline 1,000 ML 150 ML IV (16:00)
[2021-02-22] MEDS: Morphine 4 MG/ML Syringe IV (16:00)
[2021-02-22] MEDS: Ondansetron 4 MG/2 ML Vial IV (16:00)
[2021-02-22 16:10] VITALS: BP 120/81; PULSE 64; PULSE 73; RESP 14; RESP 17; TEMP 36.7; O2SAT 91; O2SAT 94
[2021-02-22 16:15] LABS: AST(SGOT) 22 U/L (15-37); Alanine Aminotransfer ALT/SGPT 36 U/L (13-56); Albumin, Serum 3.5 g/dL (3.2-5.0); Alkaline Phosphatase 124 U/L (45-117); Anion Gap 4 (5-15); BUN 10 mg/dL (7-18); BUN/Creat Ratio 12.1 RATIO (10-20); Bilirubin, Direct 0.14 mg/dL (0.00-0.30); Calcium,Total 8.9 mg/dL (8.5-10.1); Chloride 111 mmol/L (98-107); Creatinine, Serum 0.83 mg/dL (0.55-1.02); EST Glomerular Filtration Rate 81 mL/min (>60); Est Glom Filt Rate - Afr Amer 98 mL/min (>60); Estimated Creatinine Clearance 73.79 ml/min; Glucose 89 mg/dL (74-106); Lipase 86 U/L (73-393); Potassium 3.5 mmol/L (3.5-5.1); Protein, Total 7.5 g/dL (6.4-8.2); Sodium Level 143 mmol/L (136-145)
[2021-02-22 18:20] VITALS: BP 109/60; PULSE 71; RESP 15; O2SAT 95
== END 2021-02-22 18:22 | disposition home or self-care (01) ==
PROVIDERS: Emergency Provider Emergency Medicine; PCP Physician Assistant
DX: R10.9 Unspecified abdominal pain (principal); Z87.891 Personal history of nicotine dependence
CPT/HCPCS: 74177; 80048; 80076; 83690; 85025; 96361; 96374; 96375; 99284; J7030; Q9967; A4216; J2405

== ENCOUNTER 2021-10-16 10:08 | Emergency (ER) | payer MEDICAID, SELFPAY ==
[2021-10-16 10:12] VITALS: BP 102/85; PULSE 72; RESP 18; TEMP 36.3; O2SAT 97; BMI 31.6
--- NOTE | 2021-10-16 10:21 | CT_ITS ---
STUDY: CT ABDOMEN AND PELVIS WITH CONTRAST REASON FOR EXAM: Female, 41 years old. History of bowel obstruction. Colitis. Abdominal pain. RADIATION DOSAGE (If Supplied By Facility): CTDIvol = ( 10.78 ) mGy, DLP = ( 770.55 ) mGycm TECHNIQUE: Transaxial images were obtained from the dome of the diaphragm to the symphysis pubis without oral contrast. IV 100mL Isovue-300 was administered. Sagittal and coronal images were reconstructed. Individualized dose optimization techniques were used for this CT. COMPARISON: Comparison is made with prior study dated 02/22/2021. FINDINGS: Stable mild degree of increased markings at the lung bases suggestive of bibasilar atelectasis. The visualized portions of the heart are within normal limits. Normal liver. Normal gallbladder and extrahepatic biliary system. Normal spleen. Normal pancreas. Normal bilateral adrenal glands. Normal right kidney. Normal left kidney. Normal visualized stomach. There is evidence of a surgical anastomosis of the small bowel with the sigmoid colon. Surgical anastomosis is seen in the region of the sigmoid colon. A large amount of fecal material is seen in the sigmoid colon proximal to the anastomotic site. This is essentially unchanged as compared to prior study. There are surgical clips in the region of the appendix consistent with a prior appendectomy. Normal abdominal aorta. Normal inferior vena cava. Normal retroperitoneum. Normal urinary bladder. There is absence of the uterus consistent with a prior hysterectomy. Evidence of prior ventral hernia repair. Normal osseous structures. CT/Abdomen/Pelvis W IV Cont ONLY IMPRESSION: Large amount of fecal material is seen in the sigmoid colon at the surgical anastomotic site but the small bowel. This is essentially unchanged. Electronically Signed: Kali Luque MD at 11:52 EDT ,
--- NOTE | 2021-10-16 10:22 | EDS_ITS ---
HPI History of Present Illness Chief Complaint: Abd Pain Informant: patient Narrative Narrative: 41-year-old female presents to the emergency department with abdominal pain. Patient states that this is a reoccurring issue for her for which there is no cure. Despite there not being any cure she states that her doctors tell her whenever she gets this pain to come to emergency. She states she has had multiple abdominal surgeries including 2 for bowel obstruction. She last states that she had surgery 2 years ago at [facility]. She states that whenever she gets this pain she comes to the hospital they do not me out do a CAT scan and send me home. 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 She notes nausea but no vomiting. She has been having regular bowel movements. [facility] Medical History Bowel obstruction Iron deficiency anemia Home Medications colestipol 1 gram tablet 1 g PO BID 02/22/21 [History Last Taken Unknown] docusate sodium 100 mg capsule (Colace) 100 mg PO DAILY #30 caps 10/16/21 [Rx Last Taken Unknown] magnesium citrate 300 ml PO DAILY PRN constipation #600 mL 10/16/21 [Rx Last Taken Unknown] Allergy/AdvReac Type Severity Reaction Status Date / Time hydromorphone HCl Allergy Severe Anaphylaxis Verified 10/16/21 10:12 [From Dilaudid] aspirin [From Percodan] Allergy Intermediate Swelling Verified 10/16/21 10:12 oxycodone terephthalate Allergy Intermediate Swelling Verified 10/16/21 10:12 [From Percodan] amoxicillin Allergy Hives Verified 10/16/21 10:12 azithromycin Allergy Other Verified 10/16/21 10:12 erythromycin base Allergy Hives Verified 10/16/21 10:12 oxycodone HCl [From Percocet] Allergy Anaphylaxis Verified 10/16/21 10:12 propoxyphene napsylate Allergy Other Verified 10/16/21 10:12 [From Darvocet-N] Sulfa (Sulfonamide Allergy Other Verified 10/16/21 10:12 Antibiotics) tramadol Allergy Hives Verified 10/16/21 10:12 Surgical History H/O: hysterectomy History of appendectomy Social History Smoking Status: Former smoker ROS ROS ED Constitutional Constitutional ED: Denies chills or weight loss Eyes Eyes: Denies change in vision or diplopia ENT ENT ED: Denies ear pain, rhinorrhea or sore throat Cardiovascular Cardiovascular: Denies chest pain, orthopnea, palpitations or racing heartbeat Respiratory/Chest Respiratory/Chest: Denies cough, dyspnea or orthopnea Gastrointestinal Gastrointestinal: Reports abdominal pain and nausea; Denies constipation, diarrhea or vomiting Genitourinary Genitourinary ED: Denies dysuria, hematuria or urinary frequency Musculoskeletal Musculoskeletal: Denies arthralgias or myalgias Integumentary Denies abscess or rash Neurologic Neurologic: Denies headache(s) or weakness Psychiatric Psychiatric: Denies anxiety, depression, suicidal ideation or suicidal thoughts Endocrine Endocrinology: Denies polydipsia, polyphagia or polyuria Allergic/Immunologic Allergic/Immunologic ED: Denies mouth swelling, tongue swelling or urticaria EXAM Physical Exam Const Vital Signs: 10/16/21 10:12 Temperature 97.3 F L Temperature Source Temporal Pulse Rate 72 Respiratory Rate 18 Blood Pressure 102/85 H Blood Pressure Mean 90 Pulse Ox 97 Oxygen Delivery Method Room Air Positive well nourished and well developed General Appearance ED: well developed HEENT Reports normocephalic, head/scalp atraumatic and moist mucous membranes Eyes PERRL and EOMs intact bilaterally Neck no lymphadenopathy, supple and no JVD Resp normal respiratory effort and clear to auscultation bilaterally Cardio regular rate, regular rhythm and no murmurs GI non-distended; Negative for hepatosplenomegaly or no masses GI Narrative: Patient reports tenderness to palpation out of proportion to the exam Auscultation: normoactive bowel sounds Palpation: soft; Negative for guarding or rebound tenderness present Back/Spine no CVA tenderness and normal ROM Extremity normal to inspection General Extremety ED: Negative for edema General Extremity: Negative for edema Neuro oriented x3 and CN's II-XII intact bilaterally Sensorium / Orientation: alert Motor Exam: strength 5/5 throughout Psych mental status grossly normal Mood & Affect: Negative for depressed or tearful Skin no rashes or lesions noted and no wounds MDM MDM MDM Narrative Medical decision making narrative: Blood work is negative. CT then pelvis was obtained which does not demonstrate a small bowel obstruction. At the anastomosis site there is a large amount of stool seen. This is most likely cause of the patient's pain. Patient will be started on Colace and magnesium citrate. Lab Data Attestation: I reviewed the patient's lab results. Labs: Laboratory Results - last 24 hr 10/16/21 10/16/21 10:25 10:25 WBC 5.9 RBC 4.65 Hgb 12.8 Hct 41.2 MCV 88.6 MCH 27.5 MCHC 31.1 L RDW Std Deviation 45.6 H RDW Coeff of Yovana 14.2 Plt Count 224 MPV 9.9 Immature Gran % (Auto) 0.200 Neut % (Auto) 55.7 Lymph % (Auto) 32.4 Burt % (Auto) 7.7 Eos % (Auto) 3.1 Baso % (Auto) 0.9 Absolute Neuts (auto) 3.3 Absolute Lymphs (auto) 1.90 Nucleated RBC % 0 Sodium 143 Potassium 3.6 Chloride 109 H Carbon Dioxide 29.0 Anion Gap 5 BUN 14 Creatinine 0.95 Estim Creat Clear Calc 63.81 Est GFR (MDRD) Af Amer 83 Est GFR (MDRD) Non-Af 68 BUN/Creatinine Ratio 14.7 Glucose 101 Calcium 9.6 Total Bilirubin 0.40 AST 24 ALT 33 Alkaline Phosphatase 108 Total Protein 7.3 Albumin 3.6 Globulin 3.7 Albumin/Globulin Ratio 1.0 Lipase 88 Radiography Diagnostic Testing: Clinical Impression(s) from Imaging Studies Abdomen/Pelvis CT 10/16/21 10:21 IMPRESSION: Large amount of fecal material is seen in the sigmoid colon at the surgical anastomotic site but the small bowel. This is essentially unchanged. Electronically Signed: Kali Luque MD at 11:52 EDT , Discharge Plan Triage Chief Complaint: Abd Pain ED Provider: Jesus Mccall Dx/Rx/DC Orders Clinical Impression: Abdominal pain Instructions: ED Constipation (Adult) Prescriptions: New docusate sodium [Colace] 100 mg capsule 100 mg PO DAILY Qty: 30 0RF magnesium citrate Solution 300 ml PO DAILY PRN (Reason: constipation) Qty: 600 0RF No Action colestipol 1 gram tablet 1 g PO BID Label Comments: Take 1 tablet by mouth twice daily. Primary Care Provider: Mesfin Ramos Referrals: Mesfin Ramos, PA [Primary Care Provider] - As Needed Disposition Disposition: Home, Self Care
[2021-10-16 10:34] LABS: Absolute Neutrophil Count 3.3 X10^3/uL (2.0-7.7); Basophil# 0.05 X10^3/uL; Basophil% 0.9 % (0-1); Eosinophil# 0.18 X10^3/uL; Eosinophils% 3.1 % (0-5); Hematocrit 41.2 % (37-47); Hemoglobin 12.8 g/dL (12.0-15.0); Lymphocyte % 32.4 % (19-41); Mean Corp Hgb Conc 31.1 g/dL (32-36); Mean Corpuscular Hgb 27.5 pg (27.0-32.0); Mean Corpuscular Volume 88.6 fL (81-99); Mean Platelet Vol. 9.9 fl (6.2-12.0); Monocyte# 0.45 X10^3/uL; Monocyte% 7.7 % (0-10); NRBC Flagged by Analyzer 0 % (0-5); Neutrophil # 3.28 X10^3/uL (2.7-7.7); Neutrophil % 55.7 % (47-70); Platelet Count 224 K/mm3 (150-450); RBC Distribution Width CV 14.2 % (11.6-14.6); RBC Distribution Width SD 45.6 fl (35.1-43.9); Red Blood Count 4.65 M/mm3 (4.2-5.4); White Blood Count 5.9 K/mm3 (4.4-11.0)
[2021-10-16] MEDS: Ondansetron 4 MG/2 ML Vial IV (10:34)
[2021-10-16] MEDS: Ketorolac 30 MG/ML Syringe IV (10:38)
[2021-10-16 10:56] LABS: AST(SGOT) 24 U/L (15-37); Alanine Aminotransfer ALT/SGPT 33 U/L (13-56); Albumin, Serum 3.6 g/dL (3.2-5.0); Alkaline Phosphatase 108 U/L (45-117); Anion Gap 5 (5-15); BUN 14 mg/dL (7-18); BUN/Creat Ratio 14.7 RATIO (10-20); Calcium,Total 9.6 mg/dL (8.5-10.1); Chloride 109 mmol/L (98-107); Creatinine, Serum 0.95 mg/dL (0.55-1.02); EST Glomerular Filtration Rate 68 mL/min (>60); Est Glom Filt Rate - Afr Amer 83 mL/min (>60); Estimated Creatinine Clearance 63.81 ml/min; Globulin 3.7 g/dL (2.2-4.2); Glucose 101 mg/dL (74-106); Lipase 88 U/L (73-393); Potassium 3.6 mmol/L (3.5-5.1); Protein, Total 7.3 g/dL (6.4-8.2); Sodium Level 143 mmol/L (136-145)
== END 2021-10-16 13:02 | disposition home or self-care (01) ==
PROVIDERS: Emergency Provider Emergency Medicine; PCP Physician Assistant; Visit Provider Emergency Medicine
DX: R10.9 Unspecified abdominal pain (principal); R11.0 Nausea; Z87.891 Personal history of nicotine dependence
CPT/HCPCS: 74177; 80053; 83690; 85025; 96374; 96375; 99283; Q9967; A4216; J2405

== ENCOUNTER 2021-11-06 22:36 | Inpatient (IN) | payer MEDICAID, SELFPAY ==
[2021-11-06 22:37] VITALS: BP 121/90; PULSE 87; RESP 18; TEMP 36.8; O2SAT 99; BMI 31.5
--- NOTE | 2021-11-06 23:08 | CT_ITS ---
STUDY: CT ABDOMEN AND PELVIS WITH CONTRAST REASON FOR EXAM: Female, 41 years old. Diffuse abdominal pain, SBO RADIATION DOSAGE (If Supplied By Facility): CTDIvol = ( 17.25 ) mGy, DLP = ( 1092.43 ) mGycm TECHNIQUE: Transaxial images were obtained from the dome of the diaphragm to the symphysis pubis without oral contrast. IV 100mL Isovue-300 was administered. Sagittal and coronal images were reconstructed. Individualized dose optimization techniques were used for this CT. COMPARISON: 10/16/2021 FINDINGS: Subsegmental lung base atelectasis. The visualized portions of the heart are within normal limits. Normal liver. Normal gallbladder and extrahepatic biliary system. Normal spleen. Normal pancreas. Normal bilateral adrenal glands. Normal right kidney. Normal left kidney. Normal visualized stomach. Left lower quadrant small bowel anastomotic sutures with fecalization of contents and increased small bowel distention compared to 10/16/2021. The distal small bowel is mostly decompressed. Normal colon. There are surgical clips in the region of the appendix consistent with a prior appendectomy. Normal abdominal aorta. Normal inferior vena cava. Normal retroperitoneum. Normal urinary bladder. There is absence of the uterus consistent with a prior hysterectomy. Normal abdominal wall. Normal thoracolumbar vertebral alignment. CT/Abdomen/Pelvis W IV Cont ONLY IMPRESSION: At least partial small bowel obstruction at the left lower quadrant anastomotic site with increased size of proximal small bowel loops compared to 10/16/2021. Subsegmental lung base atelectasis redemonstrated. Electronically Signed: Kyler Hillman MD at 1:33 EDT ,
[2021-11-06 23:26] LABS: Mucous, Urine 0 SEEN /hpf (<or=2+)
[2021-11-06] MEDS: Morphine 4 MG/ML Syringe IV (23:28)
[2021-11-06] MEDS: 0.9% Normal Saline 1,000 ML 999 ML IV (23:28)
[2021-11-06] MEDS: Ondansetron 4 MG/2 ML Vial IV (23:28)
[2021-11-06 23:39] LABS: Absolute Lymphocyte Count 2.22 X10^3/uL (0.83-4.51); Absolute Neutrophil Count 4.5 X10^3/uL (2.0-7.7); Basophil# 0.06 X10^3/uL; Basophil% 0.8 % (0-1); Eosinophil# 0.15 X10^3/uL; Hematocrit 37.1 % (37-47); Hemoglobin 12.1 g/dL (12.0-15.0); Lymphocyte # 2.22 X10^3/ul (0.83-4.51); Lymphocyte % 29.4 % (19-41); Mean Corp Hgb Conc 32.6 g/dL (32-36); Mean Corpuscular Hgb 28.5 pg (27.0-32.0); Mean Corpuscular Volume 87.3 fL (81-99); Mean Platelet Vol. 10.1 fl (6.2-12.0); Monocyte# 0.57 X10^3/uL; Monocyte% 7.5 % (0-10); NRBC Flagged by Analyzer 0.3 % (0-5); Neutrophil # 4.47 X10^3/uL (2.7-7.7); Neutrophil % 59.1 % (47-70); Platelet Count 204 K/mm3 (150-450); RBC Distribution Width CV 14.2 % (11.6-14.6); RBC Distribution Width SD 45.2 fl (35.1-43.9); Red Blood Count 4.25 M/mm3 (4.2-5.4); White Blood Count 7.6 K/mm3 (4.4-11.0)
[2021-11-06 23:40] LABS: Color, Urine Yellow (Yellow); Glucose, Dipstick Normal (Normal); Ketone-Dipstick Negative (Negative); Leukocyte Esterase-Dipstick 25 /ul (Negative); Nitrite-Dipstick Positive (Negative); Occult Blood-Urine 10 /ul (Negative); Protein-Dipstick 15 mg/dl (Negative); Specific Gravity, Urine 1.025 (1.002-1.030); Urine Bilirubin Dipstick Negative (Negative); Urine Clarity Clear (Clear); Urine Urobilinogen Normal (Normal)
[2021-11-06 23:43] LABS: Anion Gap 6 (5-15); BUN 11 mg/dL (7-18); Chloride 109 mmol/L (98-107); Creatinine, Serum 0.84 mg/dL (0.55-1.02); EST Glomerular Filtration Rate 79 mL/min (>60); Est Glom Filt Rate - Afr Amer 95 mL/min (>60); Estimated Creatinine Clearance 72.17 ml/min; Glucose 111 mg/dL (74-106); Potassium 3.6 mmol/L (3.5-5.1); Sodium Level 142 mmol/L (136-145)
[2021-11-06 23:54] LABS: AST(SGOT) 18 U/L (15-37); Alanine Aminotransfer ALT/SGPT 28 U/L (13-56); Albumin, Serum 3.4 g/dL (3.2-5.0); Alkaline Phosphatase 102 U/L (45-117); Bilirubin, Direct 0.09 mg/dL (0.00-0.30); Globulin 3.4 g/dL (2.2-4.2); Lipase 70 U/L (73-393); Protein, Total 6.8 g/dL (6.4-8.2)
[2021-11-07] VITALS (16 sets, daily range): BP systolic 99–129; BP diastolic 64–84; PULSE 62–98; RESP 14–22; TEMP 36.4–38; O2SAT 58–100; BMI 35.2
[2021-11-07 00:01] LABS: Bacteria 3+ /hpf (None Seen); Red Blood Cells-Urine 0-5 SEEN /hpf (0-5); Squamous Epithelial Cells - UA 10-25 SEEN /hpf (5-10); White Blood Cells 0-5 SEEN /hpf (0-5)
[2021-11-07 00:10] LABS: Lactic Acid 0.8 mmol/L (0.4-1.9)
--- NOTE | 2021-11-07 03:23 | EX.ED.DYSGE1 ---
HPI History of Present Illness Chief Complaint: Abd Pain Narrative Narrative: Patient is a 41-year-old female with past medical history of multiple abdominal surgeries and recurrent small bowel obstructions. She states that around 1:00 today she developed generalized abdominal discomfort and had nausea with 1-2 bouts of vomiting. She states that she has had multiple obstructions in the past and this feels similar nature and secondary to this comes in for evaluation. [facility] Medical History (Updated 11/07/21 @ 04:[address] Last Lucia DO) Bipolar disorder Bowel obstruction Former tobacco use History of borderline diabetes mellitus HLD (hyperlipidemia) Iron deficiency anemia Obesity Home Medications colestipol 1 gram tablet 1 g PO BID 02/22/21 [History Last Taken Unknown] docusate sodium 100 mg capsule (Colace) 100 mg PO DAILY #30 caps 10/16/21 [Rx Last Taken Unknown] magnesium citrate 300 ml PO DAILY PRN constipation #600 mL 10/16/21 [Rx Last Taken Unknown] Allergy/AdvReac Type Severity Reaction Status Date / Time hydromorphone HCl Allergy Severe Anaphylaxis Verified 11/06/21 22:40 [From Dilaudid] aspirin [From Percodan] Allergy Intermediate Swelling Verified 11/06/21 22:40 oxycodone terephthalate Allergy Intermediate Swelling Verified 11/06/21 22:40 [From Percodan] amoxicillin Allergy Hives Verified 11/06/21 22:40 azithromycin Allergy Other Verified 11/06/21 22:40 erythromycin base Allergy Hives Verified 11/06/21 22:40 oxycodone HCl [From Percocet] Allergy Anaphylaxis Verified 11/06/21 22:40 propoxyphene napsylate Allergy Other Verified 11/06/21 22:40 [From Darvocet-N] Sulfa (Sulfonamide Allergy Other Verified 11/06/21 22:40 Antibiotics) tramadol Allergy Hives Verified 11/06/21 22:40 Family History (Updated 11/07/21 @ 03:[address] January Chambers MD) Father Cancer Hx Leukemia. Diabetes CVA (cerebral vascular accident) Mother Cancer Surgical History (Updated 11/07/21 @ 03:[address] January Chambers MD) H/O: hysterectomy History of appendectomy History of bowel resection S/P cholecystectomy S/P exploratory laparotomy Social History (Updated 11/07/21 @ 03:[address] January Chambers MD) household members: family Smoking Status: Former smoker alcohol intake: never substance use type: does not use ROS ROS ED Constitutional Constitutional ED: Denies chills or fever(s) ENT ENT ED: Denies sore throat Cardiovascular Cardiovascular: Denies chest pain Respiratory/Chest Respiratory/Chest: Denies cough or dyspnea Gastrointestinal Gastrointestinal: Reports abdominal pain, nausea and vomiting; Denies diarrhea Genitourinary Genitourinary ED: Denies dysuria Musculoskeletal Musculoskeletal: Denies myalgias Integumentary Denies rash Neurologic Neurologic: Denies headache(s) Hematologic/Lymphatic Hematologic/Lymphatic: Denies easy bleeding or easy bruising EXAM Physical Exam Const Vital Signs: 11/06/21 22:37 11/07/21 03:09 11/07/21 03:23 Temperature 98.3 F 97.9 F 97.9 F Temperature Source Temporal Temporal Oral Pulse Rate 87 90 90 Respiratory Rate 18 18 18 Blood Pressure 121/90 H 99/66 99/66 Blood Pressure Mean 100 77 77 Pulse Ox 99 96 97 Oxygen Delivery Method Room Air Room Air Room Air Positive well nourished and well developed General Appearance ED: well developed HEENT Reports moist mucous membranes Eyes PERRL and EOMs intact bilaterally Neck supple Resp normal respiratory effort and clear to auscultation bilaterally Cardio regular rate and regular rhythm Rate: other Other Details: Radial pulses are plus 2 out of 4 bilaterally are equal and symmetric GI GI Narrative: Abdomen is distended more so on the left side versus right. Bowel sounds are hypoactive. There is pain with palpation diffusely but greatest in the left abdomen. There is increased tympany of the left abdomen as well. There is mild voluntary guarding with palpation but otherwise no rigidity or pulsatile mass. Auscultation: hypoactive bowel sounds Extremity normal to inspection Neuro oriented x3 and CN's II-XII intact bilaterally Sensorium / Orientation: alert Psych mental status grossly normal Skin no rashes or lesions noted MDM MDM MDM Narrative Medical decision making narrative: Patient presented to the hospital with stable vitals and a history and exam concerning for obstruction. Secondary to this basic blood work and a CT scan were obtained. Blood work revealed no acute findings but CT scan did confirm a partial small bowel obstruction. The case was discussed with general surgery who does recommend patient can stay at this facility if an NG tube is placed to help decompress the bowel. However if there is no improvement of symptoms she may need transferred at a later date as she is too complex to perform surgical intervention at this facility. The plan of care was discussed with the patient and she does wish to stay at this hospital so therefore an NG tube will be placed and she will be admitted to the hospital for further care. Lab Data Attestation: I reviewed the patient's lab results. Labs: Laboratory Results - last 24 hr 11/06/21 11/06/21 11/06/21 23:15 23:20 23:20 WBC 7.6 RBC 4.25 Hgb 12.1 Hct 37.1 MCV 87.3 MCH 28.5 MCHC 32.6 RDW Std Deviation 45.2 H RDW Coeff of Yovana 14.2 Plt Count 204 MPV 10.1 Immature Gran % (Auto) 1.200 H Neut % (Auto) 59.1 Lymph % (Auto) 29.4 Wallace % (Auto) 7.5 Eos % (Auto) 2.0 Baso % (Auto) 0.8 Absolute Neuts (auto) 4.5 Absolute Lymphs (auto) 2.22 Nucleated RBC % 0.3 Sodium 142 Potassium 3.6 Chloride 109 H Carbon Dioxide 27.0 Anion Gap 6 BUN 11 Creatinine 0.84 Estim Creat Clear Calc 72.17 Est GFR (MDRD) Af Amer 95 Est GFR (MDRD) Non-Af 79 BUN/Creatinine Ratio 13.0 Glucose 111 H Lactic Acid Calcium 9.0 Total Bilirubin Direct Bilirubin AST ALT Alkaline Phosphatase Total Protein Albumin Globulin Lipase Urine Color Yellow Urine Clarity Clear Urine pH 5.0 Ur Specific [place] 1.025 Urine Protein 15 H Urine Glucose (UA) Normal Urine Ketones Negative Urine Occult Blood 10 H Urine Nitrite Positive H Urine Bilirubin Negative Urine Urobilinogen Normal Ur Leukocyte Esterase 25 H Urine RBC 0-5 SEEN Urine WBC 0-5 SEEN Ur Squamous Epith Cells 10-25 SEEN Urine Bacteria 3+ Urine Mucus 0 SEEN 11/06/21 11/06/21 23:20 23:40 WBC RBC Hgb Hct MCV MCH MCHC RDW Std Deviation RDW Coeff of Yovana Plt Count MPV Immature Gran % (Auto) Neut % (Auto) Lymph % (Auto) Wallace % (Auto) Eos % (Auto) Baso % (Auto) Absolute Neuts (auto) Absolute Lymphs (auto) Nucleated RBC % Sodium Potassium Chloride Carbon Dioxide Anion Gap BUN Creatinine Estim Creat Clear Calc Est GFR (MDRD) Af Amer Est GFR (MDRD) Non-Af BUN/Creatinine Ratio Glucose Lactic Acid 0.8 Calcium Total Bilirubin 0.30 Direct Bilirubin 0.09 AST 18 ALT 28 Alkaline Phosphatase 102 Total Protein 6.8 Albumin 3.4 Globulin 3.4 Lipase 70 L Urine Color Urine Clarity Urine pH Ur Specific [place] Urine Protein Urine Glucose (UA) Urine Ketones Urine Occult Blood Urine Nitrite Urine Bilirubin Urine Urobilinogen Ur Leukocyte Esterase Urine RBC Urine WBC Ur Squamous Epith Cells Urine Bacteria Urine Mucus Radiography Diagnostic Testing: Clinical Impression(s) from Imaging Studies Abdomen/Pelvis CT 11/06/21 23:08 IMPRESSION: At least partial small bowel obstruction at the left lower quadrant anastomotic site with increased size of proximal small bowel loops compared to 10/16/2021. Subsegmental lung base atelectasis redemonstrated. Electronically Signed: Kyler Hillman MD at 1:33 EDT , Discharge Plan Dx/Rx/DC Orders Clinical Impression: SBO (small bowel obstruction), Urinary tract infection Disposition Disposition: Acute Care Hospital [facility]
--- NOTE | 2021-11-07 03:27 | PCM.HP.STD ---
HPI - General General Date of Admission: 11/07/21 Date of Service: 11/07/21 Chief Complaint: Abdominal pain, bloating. HPI Narrative The patient is a 41 y/o F w/ PMHx: Chronic anemia/Fe deficiency anemia, Obesity, Former tobacco use, Bipolar disorder, HLD, Hx Borderline Diabetes, History of multiple SBO with several abdominal surgeries prior who presents to the [facility] ED on 11/07/21 with history of onset of abdominal pain, distention without any significant nausea or emesis starting at 1 AM on day of presentation with last bowel movement she reports of normal consistency and size prior to presentation with pain at that time 10/10 noted to be combination of sharp stabbing, dull aching and cramping similar to her prior SBO presentations prompting evaluation. In the ED following pain medication she currently notes pain improving, 7-8 out of 10 in severity currently. Work-up in the ED included T97.9, heart rate 90, BP 99/66, respiratory rate 18, 96% on room air, CBC with WC 7.6, hemoglobin 12.1, platelet 204 with increased immature granulocytes, CMP with chloride 109, glucose 111 otherwise not marked appearing, lactic acid 0.8, lipase 70, unremarkable hepatic profile, urinalysis with elevated specific gravity 1.025, protein 15, occult blood 10, positive nitrite, leukocyte Estrace 25, poor sample with urine squamous epithelial cells noted to be 10-25, 3+ urine bacteria, CT abdomen and pelvis with at least a partial small bowel obstruction in the left lower quadrant at the anastomotic site with increased size of proximal small bowel loops compared to 10/16/2021 with subsegmental lung base atelectasis re-demonstrated. In the ED patient ministered normal saline bolus, morphine 4 mg IV x2, Zofran 4 mg x 1 with requested NG tube placement however patient initially declined but eventually was amenable in order to more quickly attempt to alleviate the bowel obstruction. ED physician discussed case with general surgery. [facility] Medical History (Updated 11/07/21 @ 03:[address] January Chambers MD) Bipolar disorder Bowel obstruction Former tobacco use History of borderline diabetes mellitus HLD (hyperlipidemia) Iron deficiency anemia Obesity Home Medications colestipol 1 gram tablet 1 g PO BID 02/22/21 [History Last Taken Unknown] docusate sodium 100 mg capsule (Colace) 100 mg PO DAILY #30 caps 10/16/21 [Rx Last Taken Unknown] magnesium citrate 300 ml PO DAILY PRN constipation #600 mL 10/16/21 [Rx Last Taken Unknown] Allergy/AdvReac Type Severity Reaction Status Date / Time hydromorphone HCl Allergy Severe Anaphylaxis Verified 11/06/21 22:40 [From Dilaudid] aspirin [From Percodan] Allergy Intermediate Swelling Verified 11/06/21 22:40 oxycodone terephthalate Allergy Intermediate Swelling Verified 11/06/21 22:40 [From Percodan] amoxicillin Allergy Hives Verified 11/06/21 22:40 azithromycin Allergy Other Verified 11/06/21 22:40 erythromycin base Allergy Hives Verified 11/06/21 22:40 oxycodone HCl [From Percocet] Allergy Anaphylaxis Verified 11/06/21 22:40 propoxyphene napsylate Allergy Other Verified 11/06/21 22:40 [From Darvocet-N] Sulfa (Sulfonamide Allergy Other Verified 11/06/21 22:40 Antibiotics) tramadol Allergy Hives Verified 11/06/21 22:40 Family History (Updated 11/07/21 @ 03:[address] January Chambers MD) Father Cancer Hx Leukemia. Diabetes CVA (cerebral vascular accident) Mother Cancer Surgical History (Updated 11/07/21 @ 03:[address] January Chambers MD) H/O: hysterectomy History of appendectomy History of bowel resection S/P cholecystectomy S/P exploratory laparotomy Social History (Updated 11/07/21 @ 03:[address] January Chambers MD) household members: family Smoking Status: Former smoker alcohol intake: never substance use type: does not use ROS ROS Narrative Admission Review of Systems: CONSTITUTIONAL: No weight loss, fever, chills, + weakness or fatigue. HEENT: Eyes: No visual loss, blurred vision, double vision or yellow sclerae. Ears, Nose, Throat: No hearing loss, sneezing, congestion, runny nose or sore throat. SKIN: No rash or itching, lesions, wounds. CARDIOVASCULAR: No chest pain, chest pressure or chest discomfort, palpitations, edema, orthopnea, syncopal events. RESPIRATORY: No shortness of breath, cough or sputum, wheezing, hemoptysis. GASTROINTESTINAL: + anorexia, abdominal pain, distention, No nausea, vomiting, diarrhea, melena, BRBPR. GENITOURINARY: No dysuria, frequency, urgency or retention. NEUROLOGICAL: No headache, dizziness, syncope, paralysis, ataxia, numbness or tingling in the extremities, focal weakness, change in bowel or bladder control, seizure. MUSCULOSKELETAL: + muscle, back pain, joint pain or stiffness. HEMATOLOGIC: + anemia, bleeding or bruising. LYMPHATICS: No enlarged nodes. No history of splenectomy. PSYCHIATRIC: + history of depression or anxiety. ENDOCRINOLOGIC: No reports of sweating, cold or heat intolerance. No polyuria or polydipsia. ALLERGIES: No history of asthma, hives, eczema or rhinitis. Vital Signs Vital Signs Vital Signs: 11/06/21 22:37 11/07/21 03:09 Temperature 98.3 F 97.9 F Temperature Source Temporal Temporal Pulse Rate 87 90 Respiratory Rate 18 18 Blood Pressure 121/90 H 99/66 Blood Pressure Mean 100 77 Pulse Ox 99 96 Oxygen Delivery Method Room Air Room Air Weight Weight: 178 lb Body Mass Index (BMI) 31.5 Physical Exam Narrative Physical Examination: General: Awake, alert, oriented x 3 and cooperative, seated upright in the ED bed, fatigued, uncomfortable appearing. Skin: Normal color, normal turgor, no icterus, no cyanosis. HEENT: AT/NC, EOMI, PERRLA, dry MM, no carotid bruits or JVD noted. Lungs: Mildly diminished, greater bases, appropriate effort, no rales, ronchi or wheezing. Heart: Regular rate and rhythm; no gallop, rub audible. Abdomen: Soft, obese, mildly to moderately distended, generalized tenderness palpation, worse left upper and lower quadrants, high-pitched bowel sounds left-sided, decreased right-sided upper and lower, guarding, difficult assess HSM given pain with evaluation. Extremities: No cyanosis, clubbing, or edema. Neurological: Patient awake, alert, oriented as noted, cognitive function intact; pupils equally reactive to light and accommodation, cranial nerves II-XII grossly normal, moving all 4 extremities, no focal deficits, strength mildly to moderately global decrease secondary to acute presentation, pain. Psychiatric: Affect appears uncomfortable, no acute evidence of depressive or anxiety feelings. Results Lab / Micro Data Result Diagrams: 11/06/21 23:20 11/06/21 23:20 Labs: Laboratory Results - last 24 hr 11/06/21 23:15: Urine Color Yellow, Urine Clarity Clear, Urine pH 5.0, Ur Specific [place] 1.025, Urine Protein 15 H, Urine Glucose (UA) Normal, Urine Ketones Negative, Urine Occult Blood 10 H, Urine Nitrite Positive H, Urine Bilirubin Negative, Urine Urobilinogen Normal, Ur Leukocyte Esterase 25 H, Urine RBC 0-5 SEEN, Urine WBC 0-5 SEEN, Ur Squamous Epith Cells 10-25 SEEN, Urine Bacteria 3+, Urine Mucus 0 SEEN 11/06/21 23:20: WBC 7.6, RBC 4.25, Hgb 12.1, Hct 37.1, MCV 87.3, MCH 28.5, MCHC 32.6, RDW Std Deviation 45.2 H, RDW Coeff of Yovana 14.2, Plt Count 204, MPV 10.1, Immature Gran % (Auto) 1.200 H, Neut % (Auto) 59.1, Lymph % (Auto) 29.4, [place] % (Auto) 7.5, Eos % (Auto) 2.0, Baso % (Auto) 0.8, Absolute Neuts (auto) 4.5, Absolute Lymphs (auto) 2.22, Nucleated RBC % 0.3 11/06/21 23:20: Sodium 142, Potassium 3.6, Chloride 109 H, Carbon Dioxide 27.0, Anion Gap 6, BUN 11, Creatinine 0.84, Estim Creat Clear Calc 72.17, Est GFR (MDRD) Af Amer 95, Est GFR (MDRD) Non-Af 79, BUN/Creatinine Ratio 13.0, Glucose 111 H, Calcium 9.0 11/06/21 23:20: Total Bilirubin 0.30, Direct Bilirubin 0.09, AST 18, ALT 28, Alkaline Phosphatase 102, Total Protein 6.8, Albumin 3.4, Globulin 3.4, Lipase 70 L 11/06/21 23:40: Lactic Acid 0.8 Radiology Impression Abdomen/Pelvis CT 11/06/21 23:08 IMPRESSION: At least partial small bowel obstruction at the left lower quadrant anastomotic site with increased size of proximal small bowel loops compared to 10/16/2021. Subsegmental lung base atelectasis redemonstrated. Electronically Signed: Kyler Hillman MD at 1:33 EDT , Assessment & Plan Assessment/Plan (1) SBO (small bowel obstruction): PLAN: Plan The patient is a 41 y/o F w/ PMHx: Chronic anemia/Fe deficiency anemia, Obesity, Former tobacco use, Bipolar disorder, HLD, Hx Borderline Diabetes, History of multiple SBO with several abdominal surgeries prior who presents to the [facility] ED on 11/07/21 with history of onset of abdominal pain, distention without any significant nausea or emesis starting at 1 AM on day of presentation with last bowel movement she reports of normal consistency and size prior to presentation with pain at that time 01/19 noted to be combination of sharp stabbing, dull aching and cramping similar to her prior SBO presentations prompting evaluation. #1. Abdominal pain, nausea, emesis w/ partial SBO: Will admit to medical surgical floor, maintain on IVFs, continue NGT to suction, strict I&Os, IV pain/anti-emetics PRN, serial KUB as needed to montior bowel function, Famotidine IV, maintain NPO on bowel rest. General surgery consulted and aware of case is discussed with the ED physician prior. #2. Chronic anemia/iron deficiency anemia: Admission hemoglobin 12.1, baseline appears 11-12, not on any iron supplementation at this time per current list, encourage outpatient follow-up. #3. History prediabetes: Admission glucose 111, noted previously, hemoglobin A1c requested. #4. Bipolar disorder: Not on any regimen, encourage follow-up with patient's primary care physician/therapist. #5. Former tobacco use: Encourage continued tobacco cessation. #6. Obesity: Weight loss and lifestyle changes encouraged. #7. DVT prophylaxis: SCDs, Lovenox. Charges/Coding Visit Charges Inpatient E&M: 22835 Init Hosp L3
[2021-11-07] MEDS: Morphine 4 MG/ML Syringe IV ×2 (03:39→08:02)
[2021-11-07] MEDS: Oxymetazoline 0.05% 1 SPRAY SPRAY.BTL 2 SPRAY NASAL (03:40)
--- NOTE | 2021-11-07 03:55 | RAD_ITS ---
STUDY: X-RAY - ABDOMEN/PELVIS REASON FOR EXAM: Female, 41 years old. NG Insertion TECHNIQUE: Portable, upright, AP abdomen radiograph COMPARISON: Same day CT abdomen/pelvis RAD/Abdomen Single View (Portable) IMPRESSION: Enteric tube terminates over the gastric body with sidehole below the diaphragm. Mild gaseous bowel distention. Electronically Signed: Kyler Hillman MD at 5:01 EDT ,
[2021-11-07] MEDS: Famotidine 200 MG/20 ML MDV 20 MG in 0.9% Normal Saline (Pres. free 8 ML 300 MG IV ×2 (05:48→22:34)
[2021-11-07] MEDS: 0.9% Normal Saline 1,000 ML 100 ML IV ×2 (05:50→16:23)
[2021-11-07] MEDS: Ceftriaxone 1 GM/50 ML BAG IV ×2 (05:53→22:51)
--- NOTE | 2021-11-07 06:17 | RAD_ITS ---
STUDY: X-RAY - ABDOMEN/PELVIS REASON FOR EXAM: Female, 41 years old. PSB TECHNIQUE: Single AP view of the abdomen / pelvis. COMPARISON: Comparison is made with prior examination 11/07/2021 at 3:53 AM. FINDINGS: The tip of the nasogastric tube is in the body of the stomach. Elevation of the right hemidiaphragm with increased markings at both lung bases suggestive of bibasilar atelectasis. There is an unremarkable bowel gas pattern. IV contrast is seen. There is evidence of a mild right hydronephrosis and right hydroureter. Normal soft tissue structures. There are degenerative changes of the visualized lumbar spine. RAD/Abdomen Single View (Portable) IMPRESSION: Fecal material is seen throughout the colon. The small bowel is decompressed. Right hydronephrosis and right hydroureter. Electronically Signed: Kali Luque MD at 13:00 EDT ,
[2021-11-07 07:18] LABS: Hemoglobin A1c 5.5 % (3.8-5.6)
--- NOTE | 2021-11-07 08:00 | CON.PCM.SX_ITS ---
Assessment & Plan Assessment/Plan (1) Partial small bowel obstruction: (2) History of multiple abdominal surgeries: PLAN: Plan Planning for conservative management with NG and IV fluids. Patient is stating that she is having flatus. Patient has had multiple previous abdominal surgeries including hysterectomy, couple surgeries for bowel obstruction last 1 was for closed-loop obstruction in January 2020 at [facility]. Patient previous to that had a large piece of mesh placed for hernia which was also excised and a component separation was done at [facility]. Dr. Kevin will be covering over the weekend. No plans for surgery here patient understands if she were to need surgery would plan to transfer to [facility]. Kari Orona M.D. Pager: [phone] [facility] [address] [place] [address], Outpatient [place], [address] [place] [address] Office: [phone] HPI Consult Data Date of Consult: 11/09/21 HPI Narrative HPI Narrative: PETE SMITH, is a 41 F who presents to ER due to abdominal pain-mainly LLQ. Pt has an extensive PSH: multiple surgeries for hernia with mesh, excision of mesh, component separation, internal hernia was the last surgery in 01/2020. Pt has had multiple CT scans recently which show a chronically dilated small bowel near anastomosis. Repeat CT abd in ER showed increased dilation consistent with SBO. Pt states pain started 1PM yesterday and she was able to eat normal up until coming to ER and only came to ER due to increased pain. Pt has been passing flatus the whole time. [facility] Medical History (Updated 11/08/21 @ 07:[address] Murray Oliveros, ) Bipolar disorder Bowel obstruction Former smoker Former tobacco use History of borderline diabetes mellitus HLD (hyperlipidemia) Iron deficiency anemia Obesity Rheumatoid arthritis Home Medications colestipol 1 gram tablet 1 g PO BID Check with primary doctor 02/22/21 [History Last Taken Unknown] docusate sodium 100 mg capsule (Colace) 100 mg PO DAILY #30 caps 10/16/21 [Rx Last Taken Unknown] magnesium citrate 300 ml PO DAILY PRN constipation #600 mL 10/16/21 [Rx Last Taken Unknown] Allergy/AdvReac Type Severity Reaction Status Date / Time hydromorphone HCl Allergy Severe Anaphylaxis Verified 11/06/21 22:40 [From Dilaudid] aspirin [From Percodan] Allergy Intermediate Swelling Verified 11/06/21 22:40 oxycodone terephthalate Allergy Intermediate Swelling Verified 11/06/21 22:40 [From Percodan] amoxicillin Allergy Hives Verified 11/06/21 22:40 azithromycin Allergy Other Verified 11/06/21 22:40 erythromycin base Allergy Hives Verified 11/06/21 22:40 oxycodone HCl [From Percocet] Allergy Anaphylaxis Verified 11/06/21 22:40 propoxyphene napsylate Allergy Other Verified 11/06/21 22:40 [From Darvocet-N] Sulfa (Sulfonamide Allergy Other Verified 11/06/21 22:40 Antibiotics) tramadol Allergy Hives Verified 11/06/21 22:40 Family History (Updated 11/07/21 @ 03:[address] January Chambers MD) Father Cancer Hx Leukemia. Diabetes CVA (cerebral vascular accident) Mother Cancer Surgical History H/O: hysterectomy History of appendectomy History of bowel resection S/P cholecystectomy S/P exploratory laparotomy Social History (Updated 11/07/21 @ 03:[address] January Chambers MD) household members: family Smoking Status: Former smoker alcohol intake: never substance use type: does not use ROS Constitutional Constitutional: Denies anorexia or chills ENT HEENT: Denies dizziness Cardiovascular Cardiovascular: Denies chest pain Respiratory/Chest Respiratory/Chest: Denies shortness of breath at rest Gastrointestinal Gastrointestinal: Reports abdominal pain; Denies heartburn, hematemesis, melena or vomiting Genitourinary Genitourinary: Denies burning urination Musculoskeletal Musculoskeletal: Denies joint pain Integumentary Integumentary: Denies rash Neurologic Neurologic: Denies abnormal gait or paresthesias Psychiatric Psychiatric: Denies depression Endocrine Endocrinology: Denies palpitations Hematologic/Lymphatic Hematologic/Lymphatic: Denies easy bruising Physical Exam Const alert, oriented x3 and no apparent distress HEENT normocephalic and head/scalp atraumatic HEENT Narrative: NG in place Resp normal respiratory effort Cardio regular rate GI soft to palpation GI Narrative: well healed midline incision Palpation: tender LLQ (mostly- mild diffuse, no PS); Negative for guarding Extremity no clubbing, cyanosis or edema Neuro CN's II-XII intact bilaterally Psych mental status grossly normal Lab / Micro Data Result Diagrams: 11/08/21 01:51 11/08/21 01:51 Labs: Laboratory Results - last 24 hr 11/06/21 23:15: Urine Color Yellow, Urine Clarity Clear, Urine pH 5.0, Ur Specific [place] 1.025, Urine Protein 15 H, Urine Glucose (UA) Normal, Urine Ketones Negative, Urine Occult Blood 10 H, Urine Nitrite Positive H, Urine Bilirubin Negative, Urine Urobilinogen Normal, Ur Leukocyte Esterase 25 H, Urine RBC 0-5 SEEN, Urine WBC 0-5 SEEN, Ur Squamous Epith Cells 10-25 SEEN, Urine Bacteria 3+, Urine Mucus 0 SEEN 11/06/21 23:20: WBC 7.6, RBC 4.25, Hgb 12.1, Hct 37.1, MCV 87.3, MCH 28.5, MCHC 32.6, RDW Std Deviation 45.2 H, RDW Coeff of Yovana 14.2, Plt Count 204, MPV 10.1, Immature Gran % (Auto) 1.200 H, Neut % (Auto) 59.1, Lymph % (Auto) 29.4, [place] % (Auto) 7.5, Eos % (Auto) 2.0, Baso % (Auto) 0.8, Absolute Neuts (auto) 4.5, Absolute Lymphs (auto) 2.22, Nucleated RBC % 0.3 11/06/21 23:20: Sodium 142, Potassium 3.6, Chloride 109 H, Carbon Dioxide 27.0, Anion Gap 6, BUN 11, Creatinine 0.84, Estim Creat Clear Calc 72.17, Est GFR (MDRD) Af Amer 95, Est GFR (MDRD) Non-Af 79, BUN/Creatinine Ratio 13.0, Glucose 111 H, Calcium 9.0 11/06/21 23:20: Total Bilirubin 0.30, Direct Bilirubin 0.09, AST 18, ALT 28, Alkaline Phosphatase 102, Total Protein 6.8, Albumin 3.4, Globulin 3.4, Lipase 70 L 11/06/21 23:40: Lactic Acid 0.8 11/06/21 23:40: Hemoglobin A1c 5.5 Radiology Impression Abdomen/Pelvis CT 11/06/21 23:08 IMPRESSION: At least partial small bowel obstruction at the left lower quadrant anastomotic site with increased size of proximal small bowel loops compared to 10/16/2021. Subsegmental lung base atelectasis redemonstrated. Electronically Signed: Kyler Hillman MD at 1:33 EDT , KUB X-Ray 11/07/21 03:55 IMPRESSION: Enteric tube terminates over the gastric body with sidehole below the diaphragm. Mild gaseous bowel distention. Electronically Signed: Kyler Hillman MD at 5:01 EDT , Charges/Coding Visit Charges Inpatient E&M: 61090 Init Hosp L3
[2021-11-07] MEDS: 0.9% Saline Lock 10 ML Syringe IV ×2 (08:02→22:35)
[2021-11-07] MEDS: Enoxaparin 40 MG/0.4 ML Syringe SC (08:02)
--- NOTE | 2021-11-07 08:17 | PN.HOSP_ITS ---
Subjective Subjective The patient was admitted with small bowel obstruction. Had rapid response about 2 PM with unresponsiveness, hypoxia. Pulse ox 27 to 58%. Pulse ox came up to 72% on 6 L and then put on 100% FiO2. In the morning, patient is awake and states abdominal pain, distention. She had 8 prior surgeries according to her. Objective Data Objective Data Vital Signs: Vital Signs Temp Pulse Resp BP Pulse Ox O2 Del Method 97.6 F L 67 16 100/64 98 Room Air 11/07/21 05:03 11/07/21 05:03 11/07/21 05:03 11/07/21 05:03 11/07/21 05:03 11/07/21 05:03 Oxygen Delivery Method Room Air Weight: 198 lb 6.656 oz Body Mass Index (BMI) 35.2 Intake & Output: Intake and Output for Last 24 Hours 11/05/21 11/06/21 11/07/21 23:59 23:59 23:59 Intake Total 1060 / 1060 Balance 1060 / 1060 Lab / Micro Data Result Diagrams: 11/06/21 23:20 11/06/21 23:20 Labs: Laboratory Results - last 24 hr 11/06/21 23:15: Urine Color Yellow, Urine Clarity Clear, Urine pH 5.0, Ur Specific [place] 1.025, Urine Protein 15 H, Urine Glucose (UA) Normal, Urine Ketones Negative, Urine Occult Blood 10 H, Urine Nitrite Positive H, Urine Bilirubin Negative, Urine Urobilinogen Normal, Ur Leukocyte Esterase 25 H, Urine RBC 0-5 SEEN, Urine WBC 0-5 SEEN, Ur Squamous Epith Cells 10-25 SEEN, Urine Bacteria 3+, Urine Mucus 0 SEEN 11/06/21 23:20: WBC 7.6, RBC 4.25, Hgb 12.1, Hct 37.1, MCV 87.3, MCH 28.5, MCHC 32.6, RDW Std Deviation 45.2 H, RDW Coeff of [place]ovana 14.2, Plt Count 204, MPV 10.1, Immature Gran % (Auto) 1.200 H, Neut % (Auto) 59.1, Lymph % (Auto) 29.4, [place] % (Auto) 7.5, Eos % (Auto) 2.0, Baso % (Auto) 0.8, Absolute Neuts (auto) 4.5, Absolute Lymphs (auto) 2.22, Nucleated RBC % 0.3 11/06/21 23:20: Sodium 142, Potassium 3.6, Chloride 109 H, Carbon Dioxide 27.0, Anion Gap 6, BUN 11, Creatinine 0.84, Estim Creat Clear Calc 72.17, Est GFR (MDRD) Af Amer 95, Est GFR (MDRD) Non-Af 79, BUN/Creatinine Ratio 13.0, Glucose 111 H, Calcium 9.0 11/06/21 23:20: Total Bilirubin 0.30, Direct Bilirubin 0.09, AST 18, ALT 28, Alkaline Phosphatase 102, Total Protein 6.8, Albumin 3.4, Globulin 3.4, Lipase 70 L 11/06/21 23:40: Lactic Acid 0.8 11/06/21 23:40: Hemoglobin A1c 5.5 Radiography Diagnostic Testing: Radiology Impression Abdomen/Pelvis CT 11/06/21 23:08 IMPRESSION: At least partial small bowel obstruction at the left lower quadrant anastomotic site with increased size of proximal small bowel loops compared to 10/16/2021. Subsegmental lung base atelectasis redemonstrated. KUB X-Ray 11/07/21 03:55 IMPRESSION: Enteric tube terminates over the gastric body with sidehole below the diaphragm. Mild gaseous bowel distention. Physical Exam Narrative Seen in the morning and the afternoon during diaper response Afternoon on exam findings General: Unresponsive, later on groggy. Initially eyes closed. HEENT: Atraumatic, bilateral constricted pupils. EOMI present Oral: NG tube. Clear gastric content about 200 mL since morning. Neck: Supple, No JVD, Negative Carotid Bruits Lungs: Air entry diminished in bilateral lung bases. Bibasilar coarse crepitation and rhonchi, right more than left. Severe hypoxia Cardiovascular: Regular rate, Regular Rhythm, Normal S1, Normal S2, No murmurs Abdomen: Bowel sounds absent. Mild distention. Generalized tenderness present. Deep midline ordered surgical scar. : No renal angle tenderness. No suprapubic tenderness. Extremities: No edema, Capillary Refill Less than 3 Seconds Skin: No rashes, No breakdown Musculoskeletal: No Tenderness to Palpation of Joints or Extremities Neurological: Nonfocal exam Psych/Mental Status: Groggy, flat affect Assessment & Plan Assessment/Plan (1) SBO (small bowel obstruction): PLAN: Plan The patient is a 41 y/o F admitted with abdominal pain, distention without significant nausea or vomiting with history of frequent bowel obstruction #1. Abdominal pain, nausea, emesis w/ partial SBO: Patient is admitted on MedSurg floor. Has NG tube, on conservative line of management for bowel obstruction. IV fluid, antiemetics, famotidine, n.p.o. General surgery consulted. #2. Rapid response due to opioid adverse effect: Patient had severe hypoxia, unresponsiveness,GCS 7. Patient had 2 dosages of Narcan and then patient woke up. DuoNeb, chest x-ray ordered. Patient denied chest pain. GCS improved to 14. U tox ordered. Opioids discontinued Chronic anemia/iron deficiency anemia: Admission hemoglobin 12.1, baseline appears 11-12, not on any iron supplementation at this time per current list, encourage outpatient follow-up. #3. History prediabetes: Admission glucose 111, noted previously, hemoglobin A1c requested. #4. Bipolar disorder: Not on any regimen, encourage follow-up with patient's primary care physician/therapist. #5. Former tobacco use: Encourage continued tobacco cessation. #6. Obesity: Weight loss and lifestyle changes encouraged. #7. DVT prophylaxis: SCDs, Lovenox. Total time of the visit including total time spent in counseling or coordination of care, (more than 50% of the total time, spent in obtaining medical information from nurses and other ancillary care providers,explaining to the pa tient about labs, imaging, diagnosis and management), coordination of rapid response, discussion with solutions architect consultant, review of labs and imaging is 45 minutes. Charges/Coding Procedures Hospitalists Procedures: 45621 Prolonged InPt Service; first hour
--- NOTE | 2021-11-07 10:34 | CASEMGMT ---
RN CM in to pt room, unable to get pt to wake up. Breathing unlabored and pt eyes closed, NG in. Spoke with pt nurse who states pt was medicated. LANE CM to check back.
--- NOTE | 2021-11-07 13:57 | NURSING ---
pt opening eyes but not responding to nurse. pox 27-58%, tried on ear, multiple fingers and toes. pox came up to 72% with 6L applied. sweaty. o.t 178. nrb applied o2 up to 99%. ls cta anteriorlly, ap reg. pupils pinpoint. dr uvaldo bustillos. rapid response called. applying tele monitor. pt still not able to stay awake.
[2021-11-07] MEDS: Naloxone 0.4 MG/ML Syringe IV ×2 (14:15→14:24)
[2021-11-07] MEDS: Ipratropium/Albuterol Sulfate 3 ML AMPUL.NEB INHALATION (14:29)
--- NOTE | 2021-11-07 14:30 | CASEMGMT ---
Social Work Note Rapid Response called. SW responded. No family present. SW to remain available should additional needs arise. Donna Martinez TRANSPORTATION SALES CONSULTANT, [employer]
--- NOTE | 2021-11-07 14:34 | CASEMGMT ---
LAEN YANES Assessment: Face to Face with pt for initial transition planning/care coordination assessment. LANE YANES introduced self and role at [facility], pt voices understanding and consents to assessment. Pt is O x3 but drowsy and answers all questions appropriately at this time. Respiratory in room at beginning of assessment. 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 Care providers, pharmacy, and demographics verified/updated. Admitting Dx: PSBO PCP: Gamaliel KINGSLEY Preferred Pharmacy: [facility] Insurance: [facility] Community Plan Prescription Benefit: yes LW/HPOA: Pt has a LW/DPOA on file at [facility] . Her DPOA is her? Meir Lara Short Sr. Pt states this is not who she would want to make her medical decisions. She did not state who she would like to make decisions. She states He would kill me off. Notified SW of this. LNOK: Danyelle Langford, sister; Diaz Tyler,uncle Living Arrangements: Pt lives with sister Danyelle and nieces and nephews. She reports she is I in ADL's and denies concerns at home. Transportation: Pt does not drive. States her sister transports her to medical appts. DME/HHC/SNF: Pt has a FWW at home but does not use. Pt has had [facility]HC in the past. States she states has been in a SNF in the past. States the name was Dmitry. Pt states no concerns with going home at time of dc. States she feels safe at home. She states she does not smoke, drink alcohol or do any street or illegal drugs by answering hell no. Pt states the only thing she drinks excessively is coffee and asks if she can have some. Made her aware she has a NG in and she cannot. She asks why. Pt states no further concerns/needs. CM to follow. Advised pt to ask CM if any further question/concerns/needs arise, voices understanding. Pt Goal: Home Plan: Home
--- NOTE | 2021-11-07 14:36 | NURSING ---
pt waking up and talking a little after 2 doses of narcan. currently receiving aerosol treatment. pt refusing i.s, states she doesnt like it and doesnt need it. pt said her pox always runs low when she sleeps.
[2021-11-07 14:45] LABS: Bedside Glucose 178 mg/dL (74-106)
--- NOTE | 2021-11-07 14:47 | NURSING ---
per jose w/cps, pt was refusing to wear mask even after he explained to her that her pox was extremely low and per jose, her reply was well im here now arent i?
--- NOTE | 2021-11-07 15:06 | CASEMGMT ---
According to [facility]'s website, the following tertiary facilities are in network: [facility], [place], [facility], [facility], [facility] and .
--- NOTE | 2021-11-07 15:45 | RAD_ITS ---
STUDY: X-RAY CHEST REASON FOR EXAM: Female, 41 years old. unresponsive TECHNIQUE: Single AP portable view of the chest. COMPARISON: 10/09/2019. FINDINGS: NG tube terminates in the stomach. Bibasilar atelectasis. Mild scarring in the left lung base. There is no demonstrated pleural abnormality. Normal size heart. Normal mediastinum and brennen. Normal visualized pulmonary arteries. Normal visualized aortic arch and descending thoracic aorta. Normal visualized thoracic spine. Normal visualized ribs, clavicles, and shoulders. There is no demonstrated abnormality of the visualized soft tissue structures of the upper abdomen. RAD/Chest 1 View (Portable) IMPRESSION: Bibasilar atelectasis. Otherwise no acute findings. Electronically Signed: Shagufta Herron MD at 20:40 EDT Reading Location ID and State: [id number] / Tel , Service support ,
[2021-11-07 16:40] LABS: Amphetamine Urine VISTA NEGATIVE (<1000 ng/mL); Barbiturate Urine VISTA NEGATIVE (< 200 ng/mL); Benzodiazepine Urine VISTA NEGATIVE (< 200 ng/mL); Cocaine Urine VISTA NEGATIVE (< 300 ng/mL); Ecstacy Urine VISTA NEGATIVE (< 500 ng/mL); Methadone Urine VISTA NEGATIVE (< 300 ng/mL); PCP Urine VISTA NEGATIVE (< 25 ng/mL); THC Urine VISTA NEGATIVE (< 50 ng/mL); Vista UDS pH Range 4
--- NOTE | 2021-11-07 19:10 | CASEMGMT ---
Social Work Note RAFI updated that pt's current HCPOA is not accurate and pt does not want current POA to be a decision maker for pt. RAFI discussed with Rc DUFF. For pt to revoke HCPOA, pt will need to either write a letter stating that she revoked the document, sign and date the document and then two staff will need to witness pt's signature and then the letter will be sent to Medical Records to add to pt's chart. The other way pt can revoke current HCPOA is for pt to complete a new HCPOA document and then the new HCPOA document becomes the active document. SW in to speak with pt. RAFI introduced self and role at [facility]. Pt answered this worker but did not open her eyes to speak to this worker. RAFI educated pt on the two ways that she can revoke her current HCPOA. RAFI informed pt that SW can check in with her tomorrow to see if she wants to write the letter or complete a new HCPOA. Pt states understanding. Donna Martinez SHED WORKERS SUPERVISOR, INTERNATIONAL MARKETING COORDINATOR
--- NOTE | 2021-11-07 20:45 | CT_ITS ---
EXAM: CT ANGIOGRAPHY CHEST WITHOUT AND WITH INTRAVENOUS CONTRAST CLINICAL INDICATION: Suspect PE TECHNIQUE: Helically acquired angiography images were obtained of the chest without and with intravenous contrast. This CT exam was performed using one or more of the following dose reduction techniques: automated exposure control, adjustment of the mA and/or kV according to patient size, and/or use of iterative reconstruction technique. This report was created using [employer] report generation technology. MIP reconstructed images were created and reviewed. CONTRAST: IV 100mL Isovue-300 COMPARISON: None. FINDINGS: PULMONARY ARTERIES: Unremarkable. Normal in caliber. No evidence of pulmonary embolism. AORTA: Unremarkable. Normal in caliber. No evidence of dissection. GREAT VESSELS OF AORTIC ARCH: Unremarkable. Normal in caliber. No evidence of dissection. LUNGS AND PLEURAL SPACES: Dense consolidation in the lung bases bilaterally consistent with pneumonia. No mass. No pleural effusion or thickening. HEART: Unremarkable. Heart size is normal. No pericardial effusion. No signs of right heart strain, ratio of right ventricle to left ventricle measures less than 1. MEDIASTINUM: Unremarkable. No mediastinal or hilar adenopathy. Esophagus is unremarkable. No hiatal hernia. THYROID: Unremarkable. No thyroid lesions. BONES/JOINTS: Unremarkable. No suspicious lytic or blastic abnormality. TUBES, LINES AND DEVICES: Nasogastric tube is seen in the stomach, terminus is excluded from the [id number]. CT/CTA Chest W/WO Contrast IMPRESSION: Bibasilar pneumonia. Otherwise no acute findings. Electronically Signed: Shagufta Herron MD at 22:25 EDT Reading Location ID and State: [id number] / Tel , Service support ,
--- NOTE | 2021-11-07 20:46 | PCM.HOSP.N ---
Hospitalist Note From discussion with staff patient with lethargy earlier in the day with concern secondary to narcotics. They were dc and narcan x 2 administration given. Still lethargic and also hypoxia on an NRB, drops to 70s on RA. CXR without acute findings aside atelectasis. Patient with also low grade T. Will repeat CBC, CMP, obtain LA, obtain ABG and given prolonged immobility with her presentation will to be cautious obtain CTPA.
--- NOTE | 2021-11-07 22:20 | CPS ---
CRITICAL VALUES ON ABG. DR VITALE NOTIFIED OF CRITICAL VALUES
[2021-11-07 22:25] LABS: Allen Test Positive; Base Excess 3 mmol/L (-2 to +2); Bicarbonate 30.4 mmol/L (22-26); Blood Gas Specimen Type ART; O2 Delivery Device NRB; PO2 111 mmHG (75-100); SITE R Radial; SO2 97 % (95-99); Total Carbon Dioxide 33 mmol/L; pCO2 70.7 mmHg (35-45); pH 7.24 (7.35-7.45)
[2021-11-07 23:38] LABS: ALB/GLOB Ratio 0.9 RATIO (0.9-2.4); AST(SGOT) 17 U/L (15-37); Alanine Aminotransfer ALT/SGPT 24 U/L (13-56); Alkaline Phosphatase 94 U/L (45-117); Anion Gap 2 (5-15); BUN 8 mg/dL (7-18); BUN/Creat Ratio 9.5 RATIO (10-20); Calcium,Total 8.5 mg/dL (8.5-10.1); Chloride 111 mmol/L (98-107); Creatinine, Serum 0.84 mg/dL (0.55-1.02); EST Glomerular Filtration Rate 79 mL/min (>60); Est Glom Filt Rate - Afr Amer 96 mL/min (>60); Globulin 3.4 g/dL (2.2-4.2); Glucose 107 mg/dL (74-106); Potassium 4.4 mmol/L (3.5-5.1); Protein, Total 6.4 g/dL (6.4-8.2); Sodium Level 142 mmol/L (136-145)
[2021-11-08] VITALS (33 sets, daily range): BP systolic 100–136; BP diastolic 67–91; PULSE 57–88; RESP 10–26; TEMP 36.2–36.7; O2SAT 92–100
[2021-11-08] MEDS: metroNIDAZOLE 500 MG/100 ML BAG 100 MG IV ×4 (00:45→22:24)
[2021-11-08] MEDS: 0.9% Saline Lock 10 ML Syringe IV ×3 (00:57→02:26)
[2021-11-08 01:03] LABS: Mucous, Urine 0 SEEN /hpf (<or=2+); Red Blood Cells-Urine 0 SEEN /hpf (0-5)
--- NOTE | 2021-11-08 01:03 | NURSING ---
LATE ENTRY - 2020 - PT C/O ABD PAIN, TEMP 100.4. RHONCHI CATA BASES POSTERIORLY. DR VITALE NOTIFIED. NEW ORDERS RECEIVED.
[2021-11-08 01:04] LABS: Color, Urine Yellow (Yellow); Glucose, Dipstick Normal (Normal); Ketone-Dipstick Negative (Negative); Leukocyte Esterase-Dipstick Negative /ul (Negative); Nitrite-Dipstick Negative (Negative); Occult Blood-Urine Negative /ul (Negative); Protein-Dipstick Negative (Negative); Urine Bilirubin Dipstick Negative (Negative); Urine Clarity Clear (Clear); Urine Urobilinogen Normal (Normal); Urine pH 6.5 (5.0 - 8.0)
--- NOTE | 2021-11-08 01:04 | NURSING ---
LATE ENTRY - 2200 - RT HERE DRAWING ABGS
--- NOTE | 2021-11-08 01:04 | NURSING ---
LATE ENTRY - 2229 - RT RECEIVED ORDER TO PLACE PT ON BIPAP GIVEN ABG RESULTS. PT INTIALLY REFUSED BIPAP BUT THEN NODDED THAT SHE WOULD TRY IT. THERE WAS CONCERN OF WEARING THE BIPAP GIVEN THAT SHE ALSO HAS NG TUBE. RT THEN WAS GOING TO TRY AIRVO, BUT DECISION WAS MADE TO TRANSFER PT TO ICU BEFORE AIRVO PLACED. PT TO ICU BED 3 @ 0635.
[2021-11-08 01:18] LABS: Bacteria RARE /hpf (None Seen); Squamous Epithelial Cells - UA 0-5 SEEN /hpf (5-10); White Blood Cells 0-5 SEEN /hpf (0-5)
[2021-11-08 01:46] LABS: Allen Test Positive; Base Excess 3 mmol/L (-2 to +2); Bicarbonate 29.5 mmol/L (22-26); Blood Gas Specimen Type ART; FI02 45; O2 Delivery Device CPAP; PO2 80 mmHG (75-100); SITE L Radial; SO2 94 % (95-99); Total Carbon Dioxide 31 mmol/L; pCO2 62.6 mmHg (35-45); pH 7.28 (7.35-7.45)
[2021-11-08] MEDS: 0.9% Normal Saline 1,000 ML 125 ML IV ×3 (01:46→17:13)
[2021-11-08 02:04] LABS: Absolute Lymphocyte Count 1.04 X10^3/uL (0.83-4.51); Absolute Neutrophil Count 5.2 X10^3/uL (2.0-7.7); Basophil# 0.03 X10^3/uL; Basophil% 0.4 % (0-1); Eosinophil# 0.01 X10^3/uL; Eosinophils% 0.1 % (0-5); Hematocrit 37.6 % (37-47); Hemoglobin 11.4 g/dL (12.0-15.0); Lymphocyte # 1.04 X10^3/ul (0.83-4.51); Lymphocyte % 15.6 % (19-41); Mean Corp Hgb Conc 30.3 g/dL (32-36); Mean Corpuscular Hgb 27.7 pg (27.0-32.0); Mean Corpuscular Volume 91.5 fL (81-99); Mean Platelet Vol. 9.9 fl (6.2-12.0); Monocyte# 0.35 X10^3/uL; Monocyte% 5.2 % (0-10); NRBC Flagged by Analyzer 0 % (0-5); Neutrophil # 5.19 X10^3/uL (2.7-7.7); Neutrophil % 77.8 % (47-70); Platelet Count 187 K/mm3 (150-450); RBC Distribution Width CV 14.1 % (11.6-14.6); RBC Distribution Width SD 47.5 fl (35.1-43.9); Red Blood Count 4.11 M/mm3 (4.2-5.4); White Blood Count 6.7 K/mm3 (4.4-11.0)
[2021-11-08 02:25] LABS: ALB/GLOB Ratio 0.9 RATIO (0.9-2.4); AST(SGOT) 13 U/L (15-37); Alanine Aminotransfer ALT/SGPT 24 U/L (13-56); Albumin, Serum 2.9 g/dL (3.2-5.0); Alkaline Phosphatase 90 U/L (45-117); Anion Gap 3 (5-15); BUN 7 mg/dL (7-18); BUN/Creat Ratio 8.6 RATIO (10-20); Calcium,Total 8.5 mg/dL (8.5-10.1); Chloride 110 mmol/L (98-107); Creatinine, Serum 0.81 mg/dL (0.55-1.02); EST Glomerular Filtration Rate 82 mL/min (>60); Est Glom Filt Rate - Afr Amer 99 mL/min (>60); Estimated Creatinine Clearance 71.56 ml/min; Globulin 3.3 g/dL (2.2-4.2); Glucose 121 mg/dL (74-106); Protein, Total 6.2 g/dL (6.4-8.2); Sodium Level 143 mmol/L (136-145)
[2021-11-08 02:27] LABS: Lactic Acid 0.9 mmol/L (0.4-1.9)
[2021-11-08 02:48] LABS: M R Staph aureus DNA By PCR Negative (Negative); Probe Check PASS; Specimen Processing Control PASS
--- NOTE | 2021-11-08 05:55 | RAD_ITS ---
INDICATION: Partial small bowel obstruction EXAMINATION/TECHNIQUE: X-RAY - supine AP view of the abdomen, 2 images COMPARISON: Chest and abdominal radiograph from one day prior. FINDINGS: Enteric tube in place. Nonobstructive bowel gas pattern. Persistent bilateral renal excretion of contrast with stable mild right hydroureteronephrosis. Contrast opacified urinary bladder. Small metallic clips within pelvis. Stable bibasilar opacities. Osseous structures are unremarkable. RAD/Abdomen Single View (Portable) IMPRESSION: Non-obstructive bowel gas pattern. Stable mild right hydroureteronephrosis. Bibasilar atelectasis versus infiltrate. Electronically Signed: Tank Padron MD at 7:57 EDT ,
--- NOTE | 2021-11-08 06:02 | EX.PCM.CONCC ---
Assessment & Plan Assessment/Plan (1) Acute respiratory failure: PLAN: Plan RECOMMENDATIONS: 1. Wean from Airvo to conventional nasal cannula. The patient refused BiPAP. 2. Continue antimicrobials to cover for potential aspiration. 3. Avoid sedating medications. 4. Maintain n.p.o. status. 5. Management of NG tube and SBO, per general surgery. 6. Continue appropriate DVT prophylaxis. IMPRESSIONS: 1. Acute combined respiratory failure Most likely multifactorial in etiology with underlying bilateral pneumonia and opiate induced respiratory depression contributing. The patient did receive Narcan but remains lethargic this morning. Her last ABG continued to demonstrate CO2 retention. Although I would recommend the use of BiPAP in this situation to provide ventilatory support, the patient refused therapy. Recommend continuing to hold sedating medications. The patient will be continued on antimicrobials to cover for aspiration. Continue to wean oxygen as tolerated for saturations greater than 90%. 2. Partial SBO Continue conservative measures per general surgery with fluids and nasogastric tube. Continue n.p.o. status. 3. History of bipolar disorder/chronic tobacco dependency in remission/obesity/anemia Complicates care, management, recovery and prognosis. Continue home medications as indicated. This note was generated with [employer] dictation software. It may contain incorrect words, spelling, and punctuation that were not noted in checking the note before signing. HPI Consult Data Date of Consult: 11/08/21 HPI Narrative Reason for Consultation: Acute respiratory failure HPI Narrative: The patient is a 41-year-old female, with a history as outlined below, who presented to the emergency department on November 07 with abdominal pain. The patient has a history of anemia, bipolar disorder, obesity and previous tobacco dependency. On presentation to the emergency department, the patient was noted to be afebrile with borderline blood pressures. She was initially documented to be saturating well on room air. Initial laboratory evaluation revealed no evidence of a leukocytosis. Chemistry profile was unrevealing. Liver function profile was within normal limits. Urine analysis was unremarkable. Toxicology screen was positive for urine opiates. MRSA screen was negative. CT abdomen/pelvis demonstrated a partial small bowel obstruction. The patient was subsequently seen in consultation by general surgery. They recommended conservative management with NG tube and IV fluids. It appears that during the afternoon/evening hours of November 07, the patient developed worsening lethargy and hypoxemia. There was initial concern for potential opiate induced respiratory depression. The patient was administered Narcan. Plain film chest x-ray only demonstrated bibasilar atelectasis. Therefore, last evening, a CTA chest was obtained. There was no evidence for pulmonary embolism. However, dense bibasilar consolidations were noted. An ABG was obtained which revealed a pH of 7.24 with a PCO2 of 70 and PO2 of 111. Accordingly, the patient was transferred to the medical intensive care unit for further management. [facility] Medical History (Updated 11/08/21 @ 07:[address] Murray Oliveros DO) Bipolar disorder Bowel obstruction Former smoker Former tobacco use History of borderline diabetes mellitus HLD (hyperlipidemia) Iron deficiency anemia Obesity Rheumatoid arthritis Home Medications colestipol 1 gram tablet 1 g PO BID Check with primary doctor 02/22/21 [History Last Taken Unknown] docusate sodium 100 mg capsule (Colace) 100 mg PO DAILY #30 caps 10/16/21 [Rx Last Taken Unknown] magnesium citrate 300 ml PO DAILY PRN constipation #600 mL 10/16/21 [Rx Last Taken Unknown] Allergy/AdvReac Type Severity Reaction Status Date / Time hydromorphone HCl Allergy Severe Anaphylaxis Verified 11/06/21 22:40 [From Dilaudid] aspirin [From Percodan] Allergy Intermediate Swelling Verified 11/06/21 22:40 oxycodone terephthalate Allergy Intermediate Swelling Verified 11/06/21 22:40 [From Percodan] amoxicillin Allergy Hives Verified 11/06/21 22:40 azithromycin Allergy Other Verified 11/06/21 22:40 erythromycin base Allergy Hives Verified 11/06/21 22:40 oxycodone HCl [From Percocet] Allergy Anaphylaxis Verified 11/06/21 22:40 propoxyphene napsylate Allergy Other Verified 11/06/21 22:40 [From Darvocet-N] Sulfa (Sulfonamide Allergy Other Verified 11/06/21 22:40 Antibiotics) tramadol Allergy Hives Verified 11/06/21 22:40 Family History (Updated 11/07/21 @ 03:[address] January Chambers MD) Father Cancer Hx Leukemia. Diabetes CVA (cerebral vascular accident) Mother Cancer Surgical History H/O: hysterectomy History of appendectomy History of bowel resection S/P cholecystectomy S/P exploratory laparotomy Social History (Updated 11/07/21 @ 03:[address] January Chambers MD) household members: family Smoking Status: Former smoker alcohol intake: never substance use type: does not use ROS Review of Systems ROS Unobtainable: due to mental status Physical Exam Const no apparent distress Constitutional Narrative: Airvo cannula in place. General Appearance: lethargic Nutritional Appearance: obese HEENT normocephalic and head/scalp atraumatic HEENT Narrative: Nasogastric tube remains in place. Eyes PERRL and EOMs intact bilaterally Neck supple General: trachea midline Chest inspection of chest normal Resp Resp Narrative: Poor inspiratory effort with scant rhonchi. Cardio regular rate and regular rhythm GI normal to inspection, nondistended, normoactive bowel sounds Extremity no clubbing, cyanosis or edema Skin no rashes or lesions noted Neuro Neuro Narrative: Lethargic. Opens eyes to verbal stimulation and falls quickly back to sleep. Psych Mood & Affect: flat affect Lab / Micro Data Result Diagrams: 11/08/21 01:51 11/08/21 01:51 Labs: Laboratory Results - last 24 hr 11/06/21 23:40: Hemoglobin A1c 5.5 11/07/21 13:59: POC Glucose 178 H 11/07/21 16:16: Urine Opiates Screen POSITIVE H, Urine Methadone Screen NEGATIVE, Ur Barbiturates Screen NEGATIVE, Ur Phencyclidine Scrn NEGATIVE, Ur Amphetamines Screen NEGATIVE, MDMA (Ecstasy) Screen NEGATIVE, U Benzodiazepines Scrn NEGATIVE, Urine Cocaine Screen NEGATIVE, U Cannabinoids Screen NEGATIVE, Ur Drug Screen Comment 11/07/21 22:30: Sodium 142, Potassium 4.4, Chloride 111 H, Carbon Dioxide 29.0, Anion Gap 2 L, BUN 8, Creatinine 0.84, Estim Creat Clear Calc 69.00, Est GFR (MDRD) Af Amer 96, Est GFR (MDRD) Non-Af 79, BUN/Creatinine Ratio 9.5 L, Glucose 107 H, Calcium 8.5, Total Bilirubin 0.40, AST 17, ALT 24, Alkaline Phosphatase 94, Total Protein 6.4, Albumin 3.0 L, Globulin 3.4, Albumin/Globulin Ratio 0.9 11/07/21 22:36: Ammonia 25.0 11/08/21 00:50: Urine Color Yellow, Urine Clarity Clear, Urine pH 6.5, Ur Specific Celina 1.010, Urine Protein Negative, Urine Glucose (UA) Normal, Urine Ketones Negative, Urine Occult Blood Negative, Urine Nitrite Negative, Urine Bilirubin Negative, Urine Urobilinogen Normal, Ur Leukocyte Esterase Negative, Urine RBC 0 SEEN, Urine WBC 0-5 SEEN, Ur Squamous Epith Cells 0-5 SEEN, Urine Bacteria RARE, Urine Mucus 0 SEEN 11/08/21 00:50: MRSA (PCR) Negative 11/08/21 01:51: Sodium 143, Potassium 4.0, Chloride 110 H, Carbon Dioxide 30.0, Anion Gap 3 L, BUN 7, Creatinine 0.81, Estim Creat Clear Calc 71.56, Est GFR (MDRD) Af Amer 99, Est GFR (MDRD) Non-Af 82, BUN/Creatinine Ratio 8.6 L, Glucose 121 H, Calcium 8.5, Total Bilirubin 0.30, AST 13 L, ALT 24, Alkaline Phosphatase 90, Total Protein 6.2 L, Albumin 2.9 L, Globulin 3.3, Albumin/Globulin Ratio 0.9 11/08/21 01:51: Lactic Acid 0.9 11/08/21 01:51: WBC 6.7, RBC 4.11 L, Hgb 11.4 L, Hct 37.6, MCV 91.5, MCH 27.7, MCHC 30.3 L D, RDW Std Deviation 47.5 H, RDW Coeff of Yovana 14.1, Plt Count 187, MPV 9.9, Immature Gran % (Auto) 0.900, Neut % (Auto) 77.8 H, Lymph % (Auto) 15.6 L, Deuel % (Auto) 5.2, Eos % (Auto) 0.1, Baso % (Auto) 0.4, Absolute Neuts (auto) 5.2, Absolute Lymphs (auto) 1.04, Nucleated RBC % 0 Micro: Microbiology 11/08/21 00:50 Urine, Clean Catch Legionella Antigen - Final 11/08/21 00:50 Urine, Clean Catch Streptococcus pneumoniae Antigen (M - Final ABG Data ABG results: ABG 11/07/21 11/08/21 22:20 01:40 Specimen Type ART ART Sample Site R Radial L Radial pH 7.24 L 7.28 L Bicarbonate Actual 30.4 H 29.5 H Total CO2 33 31 Base Excess 3 H 3 H O2 Saturation 97 94 L O2 % 45 ABG pCO2 70.7 H* 62.6 H ABG pO2 111 H 80 Ralph Test Positive Positive O2 Delivery Device NRB CPAP Liter Flow 15.0 Crit Call To/Read Back Yes Clinical Comments 60L 45% Radiology Impression KUB X-Ray 11/07/21 06:17 IMPRESSION: Fecal material is seen throughout the colon. The small bowel is decompressed. Right hydronephrosis and right hydroureter. Electronically Signed: Kali Luque MD at 13:00 EDT , Chest X-Ray 11/07/21 15:45 IMPRESSION: Bibasilar atelectasis. Otherwise no acute findings. Electronically Signed: Shagufta Herron MD at 20:40 EDT Reading Location ID and State: [place] Maria Conde MD Tel , Service support , Chest CTA 11/07/21 20:45 IMPRESSION: Bibasilar pneumonia. Otherwise no acute findings. Electronically Signed: Shagufta Herron MD at 22:25 EDT Reading Location ID and State: [place] Conde MD Tel , Service support , Charges/Coding Visit Charges Inpatient E&M: 42579 Init Hosp L3
--- NOTE | 2021-11-08 06:56 | NURSING ---
RT notified of Dr. Oliveros ordering BIPAP for pt. RT brought machine up to room, pt refusing to wear BIPAP at this time.
[2021-11-08] MEDS: Enoxaparin 40 MG/0.4 ML Syringe SC (09:10)
[2021-11-08] MEDS: Famotidine 200 MG/20 ML MDV 20 MG in 0.9% Normal Saline (Pres. free 8 ML 300 MG IV ×2 (09:27→21:28)
--- NOTE | 2021-11-08 11:01 | PCM.PN.HOSP ---
Subjective Subjective Follow-up for acute hypoxic respiratory failure and small bowel obstruction. Overnight events were noticed. Patient was managed lethargic got more hypoxic. Chest x-ray shows basilar atelectasis. Low-grade fever. ABG and CTPA were done. Patient transferred to ICU. Patient on BiPAP. Opens eyes. Low pitched voice. Difficult to understand on BiPAP. Objective Data Objective Data Vital Signs: Vital Signs Temp Pulse Resp BP Pulse Ox O2 Del Method O2 Flow Rate 97.3 F L 75 18 118/81 H 99 Bi-pap 60 11/08/21 08:00 11/08/21 10:00 11/08/21 10:00 11/08/21 10:00 11/08/21 10:00 11/08/21 10:00 11/08/21 07:00 FiO2 30 11/08/21 10:00 Oxygen Flow Rate (L/min) 60 Oxygen Delivery Method Bi-pap Weight: 203 lb 0.732 oz Body Mass Index (BMI) 35.2 Intake & Output: Intake and Output for Last 24 Hours 11/06/21 11/07/21 11/08/21 23:59 23:59 23:59 Intake Total 3006.67 / 3006.67 1623.33 / 1623.33 Output Total 800 / 1050 280 / 280 Balance 2206.67 / 1956.67 1343.33 / 1343.33 Lab / Micro Data Result Diagrams: 11/08/21 01:51 11/08/21 01:51 Labs: Laboratory Results - last 24 hr 11/07/21 13:59: POC Glucose 178 H 11/07/21 16:16: Urine Opiates Screen POSITIVE H, Urine Methadone Screen NEGATIVE, Ur Barbiturates Screen NEGATIVE, Ur Phencyclidine Scrn NEGATIVE, Ur Amphetamines Screen NEGATIVE, MDMA (Ecstasy) Screen NEGATIVE, U Benzodiazepines Scrn NEGATIVE, Urine Cocaine Screen NEGATIVE, U Cannabinoids Screen NEGATIVE, Ur Drug Screen Comment 11/07/21 22:30: Sodium 142, Potassium 4.4, Chloride 111 H, Carbon Dioxide 29.0, Anion Gap 2 L, BUN 8, Creatinine 0.84, Estim Creat Clear Calc 69.00, Est GFR (MDRD) Af Amer 96, Est GFR (MDRD) Non-Af 79, BUN/Creatinine Ratio 9.5 L, Glucose 107 H, Calcium 8.5, Total Bilirubin 0.40, AST 17, ALT 24, Alkaline Phosphatase 94, Total Protein 6.4, Albumin 3.0 L, Globulin 3.4, Albumin/Globulin Ratio 0.9 11/07/21 22:36: Ammonia 25.0 11/08/21 00:50: Urine Color Yellow, Urine Clarity Clear, Urine pH 6.5, Ur Specific [place] 1.010, Urine Protein Negative, Urine Glucose (UA) Normal, Urine Ketones Negative, Urine Occult Blood Negative, Urine Nitrite Negative, Urine Bilirubin Negative, Urine Urobilinogen Normal, Ur Leukocyte Esterase Negative, Urine RBC 0 SEEN, Urine WBC 0-5 SEEN, Ur Squamous Epith Cells 0-5 SEEN, Urine Bacteria RARE, Urine Mucus 0 SEEN 11/08/21 00:50: MRSA (PCR) Negative 11/08/21 01:51: Sodium 143, Potassium 4.0, Chloride 110 H, Carbon Dioxide 30.0, Anion Gap 3 L, BUN 7, Creatinine 0.81, Estim Creat Clear Calc 71.56, Est GFR (MDRD) Af Amer 99, Est GFR (MDRD) Non-Af 82, BUN/Creatinine Ratio 8.6 L, Glucose 121 H, Calcium 8.5, Total Bilirubin 0.30, AST 13 L, ALT 24, Alkaline Phosphatase 90, Total Protein 6.2 L, Albumin 2.9 L, Globulin 3.3, Albumin/Globulin Ratio 0.9 11/08/21 01:51: Lactic Acid 0.9 11/08/21 01:51: WBC 6.7, RBC 4.11 L, Hgb 11.4 L, Hct 37.6, MCV 91.5, MCH 27.7, MCHC 30.3 L D, RDW Std Deviation 47.5 H, RDW Coeff of Yovana 14.1, Plt Count 187, MPV 9.9, Immature Gran % (Auto) 0.900, Neut % (Auto) 77.8 H, Lymph % (Auto) 15.6 L, [place] % (Auto) 5.2, Eos % (Auto) 0.1, Baso % (Auto) 0.4, Absolute Neuts (auto) 5.2, Absolute Lymphs (auto) 1.04, Nucleated RBC % 0 Micro: Microbiology 11/08/21 00:50 Urine, Clean Catch Legionella Antigen - Final 11/08/21 00:50 Urine, Clean Catch Streptococcus pneumoniae Antigen (M - Final ABG Data ABG results: ABG 11/07/21 11/08/21 22:20 01:40 Specimen Type ART ART Sample Site R Radial L Radial pH 7.24 L 7.28 L Bicarbonate Actual 30.4 H 29.5 H Total CO2 33 31 Base Excess 3 H 3 H O2 Saturation 97 94 L O2 % 45 ABG pCO2 70.7 H* 62.6 H ABG pO2 111 H 80 Ralph Test Positive Positive O2 Delivery Device NRB CPAP Liter Flow 15.0 Crit Call To/Read Back Yes Clinical Comments 60L 45% Radiography Diagnostic Testing: Radiology Impression KUB X-Ray 11/07/21 06:17 IMPRESSION: Fecal material is seen throughout the colon. The small bowel is decompressed. Right hydronephrosis and right hydroureter. Electronically Signed: Kali Luque MD at 13:00 EDT , Chest X-Ray 11/07/21 15:45 IMPRESSION: Bibasilar atelectasis. Otherwise no acute findings. Electronically Signed: Shagufta Herron MD at 20:40 EDT , Chest CTA 11/07/21 20:45 IMPRESSION: Bibasilar pneumonia. Otherwise no acute findings. Electronically Signed: Shagufta Herron MD at 22:25 EDT Reading Location ID and State: [id number] / Tel , Service support , KUB X-Ray 11/08/21 05:55 IMPRESSION: Non-obstructive bowel gas pattern. Stable mild right hydroureteronephrosis. Bibasilar atelectasis versus infiltrate. Electronically Signed: Tank Padron MD at 7:57 EDT , Physical Exam Narrative Seen and examined General: Lethargy, on BiPAP. Awake HEENT: Atraumatic, pupils bilaterally reactive. EOMI present Oral: NG tube. On BiPAP Neck: Supple, No JVD, Negative Carotid Bruits Lungs: Air entry diminished in bilateral lung bases. Bibasilar coarse crepitation and rhonchi, severe hypoxia Cardiovascular: Regular rate, Regular Rhythm, Normal S1, Normal S2, No murmurs Abdomen: Bowel sounds absent. Mild distention. Generalized tenderness present. Deep midline ordered surgical scar. : No renal angle tenderness. No suprapubic tenderness. Extremities: No edema, Capillary Refill Less than 3 Seconds Skin: No rashes, No breakdown Musculoskeletal: No Tenderness to Palpation of Joints or Extremities Neurological: Nonfocal exam. Detail neuro exam unobtainable Psych/Mental Status: Flat affect. Assessment & Plan Assessment/Plan (1) SBO (small bowel obstruction): PLAN: Plan The patient is a 41 y/o F admitted with abdominal pain, distention without significant nausea or vomiting with history of frequent bowel obstruction and x-ray findings consistent with a small bowel obstruction #1. Abdominal pain, nausea, emesis w/ partial SBO: Patient is admitted on MedSurg floor. Has NG tube, on conservative line of management for bowel obstruction. IV fluid, antiemetics, famotidine, n.p.o. General surgery consulted. KUB shows fecal material throughout the colon. Small bowel decompressed. Surgeon note reviewed. Patient has history of multiple abdominal surgeries including hysterectomy, bowel obstruction, history of hernia repair with mesh which was later on exercise. If patient requires surgery, will need transfer to [facility]. #2. AAcute hypoxic and hypercarbic combined respiratory failure, most likely multifactorial, bilateral pneumonia, opioid induced respiratory depression CO2 retention, had rapid response on 11/07: Patient had severe hypoxia, unresponsiveness,GCS 7. Patient had 2 dosages of Narcan and then patient woke up. Patient denied chest pain. GCS improved to 14. U tox ordered. Opioids discontinued 11/08: ABG 7.24/70/111 on 15 L nonrebreather. Patient refusing for BiPAP but lastly agreed. CTA chest does not show PE but bibasilar pneumonia. On IV antibiotics ceftriaxone and metronidazole. Chronic anemia/iron deficiency anemia: Admission hemoglobin 12.1, baseline appears 11-12, On baseline hemoglobin #3. History prediabetes: Admission glucose 111, noted previously, hemoglobin A1c requested. #4. Bipolar disorder: follow-up with patient's primary care physician/therapist. #5. Former tobacco use: Encourage continued tobacco cessation. #6. Obesity: Weight loss and lifestyle changes encouraged. #7. DVT prophylaxis: SCDs, Lovenox. Total time of the visit including total time spent in counseling or coordination of care, (more than 50% of the total time, spent in obtaining medical information from nurses and other ancillary care providers,explaining to the patient about labs, imaging, diagnosis and management), discussion with senior telecommunications consultant, review of labs and imaging is 45 minutes. Charges/Coding Visit Charges Inpatient E&M: 74859 Subs Hosp L3
--- NOTE | 2021-11-08 11:36 | PN.SURG_ITS ---
Subjective Subjective patient developed increasing respiratory distress and was transferred to ICU patient states that she has a little abdominal pain she states that she passed flatus Objective Data Objective Data Vital Signs: Vital Signs Temp Pulse Resp BP Pulse Ox O2 Del Method O2 Flow Rate 97.3 F L 73 19 H 115/82 H 98 Bi-pap 60 11/08/21 08:00 11/08/21 11:31 11/08/21 11:00 11/08/21 11:00 11/08/21 11:00 11/08/21 11:00 11/08/21 07:00 FiO2 30 11/08/21 11:00 Oxygen Flow Rate (L/min) 60 Oxygen Delivery Method Bi-pap Weight: 92.1 kg Body Mass Index (BMI) 35.2 Intake & Output: Intake and Output for Last 24 Hours 11/06/21 11/07/21 11/08/21 23:59 23:59 23:59 Intake Total 3006.67 / 3006.67 1623.33 / 1623.33 Output Total 800 / 1050 280 / 280 Balance 2206.67 / 1956.67 1343.33 / 1343.33 Lab / Micro Data Result Diagrams: 11/08/21 01:51 11/08/21 01:51 Labs: Laboratory Results - last 24 hr 11/07/21 13:59: POC Glucose 178 H 11/07/21 16:16: Urine Opiates Screen POSITIVE H, Urine Methadone Screen NEGATIVE, Ur Barbiturates Screen NEGATIVE, Ur Phencyclidine Scrn NEGATIVE, Ur Amphetamines Screen NEGATIVE, MDMA (Ecstasy) Screen NEGATIVE, U Benzodiazepines Scrn NEGATIVE, Urine Cocaine Screen NEGATIVE, U Cannabinoids Screen NEGATIVE, Ur Drug Screen Comment 11/07/21 22:30: Sodium 142, Potassium 4.4, Chloride 111 H, Carbon Dioxide 29.0, Anion Gap 2 L, BUN 8, Creatinine 0.84, Estim Creat Clear Calc 69.00, Est GFR (MDRD) Af Amer 96, Est GFR (MDRD) Non-Af 79, BUN/Creatinine Ratio 9.5 L, Glucose 107 H, Calcium 8.5, Total Bilirubin 0.40, AST 17, ALT 24, Alkaline Phosphatase 94, Total Protein 6.4, Albumin 3.0 L, Globulin 3.4, Albumin/Globulin Ratio 0.9 11/07/21 22:36: Ammonia 25.0 11/08/21 00:50: Urine Color Yellow, Urine Clarity Clear, Urine pH 6.5, Ur Specific [place] 1.010, Urine Protein Negative, Urine Glucose (UA) Normal, Urine Ketones Negative, Urine Occult Blood Negative, Urine Nitrite Negative, Urine Bilirubin Negative, Urine Urobilinogen Normal, Ur Leukocyte Esterase Negative, Urine RBC 0 SEEN, Urine WBC 0-5 SEEN, Ur Squamous Epith Cells 0-5 SEEN, Urine Bacteria RARE, Urine Mucus 0 SEEN 11/08/21 00:50: MRSA (PCR) Negative 11/08/21 01:51: Sodium 143, Potassium 4.0, Chloride 110 H, Carbon Dioxide 30.0, Anion Gap 3 L, BUN 7, Creatinine 0.81, Estim Creat Clear Calc 71.56, Est GFR (MDRD) Af Amer 99, Est GFR (MDRD) Non-Af 82, BUN/Creatinine Ratio 8.6 L, Glucose 121 H, Calcium 8.5, Total Bilirubin 0.30, AST 13 L, ALT 24, Alkaline Phosphatase 90, Total Protein 6.2 L, Albumin 2.9 L, Globulin 3.3, Albumin/Globulin Ratio 0.9 11/08/21 01:51: Lactic Acid 0.9 11/08/21 01:51: WBC 6.7, RBC 4.11 L, Hgb 11.4 L, Hct 37.6, MCV 91.5, MCH 27.7, MCHC 30.3 L D, RDW Std Deviation 47.5 H, RDW Coeff of Yovana 14.1, Plt Count 187, MPV 9.9, Immature Gran % (Auto) 0.900, Neut % (Auto) 77.8 H, Lymph % (Auto) 15.6 L, [place] % (Auto) 5.2, Eos % (Auto) 0.1, Baso % (Auto) 0.4, Absolute Neuts (auto) 5.2, Absolute Lymphs (auto) 1.04, Nucleated RBC % 0 Micro: Microbiology 11/08/21 00:50 Urine, Clean Catch Legionella Antigen - Final 11/08/21 00:50 Urine, Clean Catch Streptococcus pneumoniae Antigen (M - Final ABG Data ABG results: ABG 11/07/21 11/08/21 22:20 01:40 Specimen Type ART ART Sample Site R Radial L Radial pH 7.24 L 7.28 L Bicarbonate Actual 30.4 H 29.5 H Total CO2 33 31 Base Excess 3 H 3 H O2 Saturation 97 94 L O2 % 45 ABG pCO2 70.7 H* 62.6 H ABG pO2 111 H 80 Ralph Test Positive Positive O2 Delivery Device NRB CPAP Liter Flow 15.0 Crit Call To/Read Back Yes Clinical Comments 60L 45% Radiography Diagnostic Testing: Radiology Impression KUB X-Ray 11/07/21 06:17 IMPRESSION: Fecal material is seen throughout the colon. The small bowel is decompressed. Right hydronephrosis and right hydroureter. Electronically Signed: Kali Luque MD at 13:00 EDT , Chest X-Ray 11/07/21 15:45 IMPRESSION: Bibasilar atelectasis. Otherwise no acute findings. Electronically Signed: Shagufta Herron MD at 20:40 EDT Reading Location ID and State: [id number] / Tel , Service support , Chest CTA 11/07/21 20:45 IMPRESSION: Bibasilar pneumonia. Otherwise no acute findings. Electronically Signed: Shagufta Herron MD at 22:25 EDT Reading Location ID and State: [id number] / Tel , Service support , KUB X-Ray 11/08/21 05:55 IMPRESSION: Non-obstructive bowel gas pattern. Stable mild right hydroureteronephrosis. Bibasilar atelectasis versus infiltrate. Electronically Signed: Tank Padron MD at 7:57 EDT , Physical Exam Const alert and oriented x3 General Appearance: cooperative Neck supple Resp Resp Narrative: BIPAP in place, increased RR GI GI Narrative: soft, some bowel sounds, benign Assessment & Plan Assessment/Plan (1) Partial small bowel obstruction: PLAN: continue NG tube decompression during patient's respiratory difficulties Hospital Course Imaging Results Imaging Results: 11/08/21 05:55 KUB [Abdomen Single View (Portable)] [RAD] AM (NON MEDS) Consultations Consultations: Consultations 11/07/21 04:35 Consult: General Surgery Routine Consulting Provider: Kari Orona Reason for Consult: pSBO EMERGENT Consult: No Notified: Yes Date Notified: 11/07/21 Time Notified: 03:38 Method of Notification: ED Physician Initiated 11/07/21 23:28 Consult: Rv Repair Technician / Pulmonary Medicine Routine Consulting Provider: Murray Oliveros Reason for Consult: Encephalopathy, Resp failure, BL PNA, admit w/ SBO, NGT in place. EMERGENT Consult: No Notified: Yes Date Notified: 11/07/21 Time Notified: 22:45 Method of Notification: Text Operations None
--- NOTE | 2021-11-08 15:48 | CASEMGMT ---
Social Work Note SW spoke with RN. RN asked that SW do not speak to pt today and to try tomorrow. SW to continue to follow. Donna Martinez PELLET POST INSPECTOR, HVAC INSTRUCTOR
[2021-11-08] MEDS: Ceftriaxone 1 GM/50 ML BAG IV (21:29)
[2021-11-09] VITALS (15 sets, daily range): BP systolic 121–149; BP diastolic 76–93; PULSE 52–74; RESP 12–23; TEMP 36.6–36.8; O2SAT 92–98
[2021-11-09] MEDS: 0.9% Normal Saline 1,000 ML 125 ML IV (02:15)
[2021-11-09] MEDS: metroNIDAZOLE 500 MG/100 ML BAG 100 MG IV ×3 (05:46→22:47)
--- NOTE | 2021-11-09 06:08 | PCM.PN.INT ---
Assessment & Plan Assessment/Plan (1) Acute respiratory failure: PLAN: Plan RECOMMENDATIONS: 1. Okay to discontinue BiPAP. 2. Supplemental oxygen as needed for saturations greater than 90%. 3. Continue antimicrobials to cover for potential aspiration. 4. Continue to avoid sedating medications. 5. Management of NG to have an SBO, per general surgery. 6. Continue appropriate DVT prophylaxis. 7. Transfer out of ICU. IMPRESSIONS: 1. Acute combined respiratory failure Most likely multifactorial in etiology with underlying bilateral pneumonia and opiate induced respiratory depression contributing. The patient did receive Narcan, with continued lethargy, which responded to BiPAP therapy and time. The patient is alert and interactive this morning. BiPAP can be discontinued accordingly. Supplemental oxygen can be utilized to maintain saturations at or above 90%. Plan to continue antimicrobials to cover for potential aspiration. Continue to avoid sedating medications. 2. Partial SBO Continue conservative measures per general surgery with fluids and nasogastric tube. 3. History of bipolar disorder/chronic tobacco dependency in remission/obesity/anemia Complicates care, management, recovery and prognosis. Continue home medications as indicated. This note was generated with [employer] dictation software. It may contain incorrect words, spelling, and punctuation that were not noted in checking the note before signing. Subjective Subjective The patient was seen and examined at the bedside this morning. Events from the last 24 hours have been reviewed. The patient is currently afebrile, hemodynamically stable and maintaining appropriate oxygen saturations on BiPAP with an FiO2 of 25%. The patient reported that the BiPAP mask is uncomfortable. She reports a mild degree of abdominal discomfort. She denies any shortness of breath. Objective Data Objective Data The patient's most recent lab work, culture data and imaging studies have all been personally reviewed. Preliminary urine culture was positive for gram-negative brad. Blood cultures are pending. Sputum culture is pending. Vital Signs: Vital Signs Temp Pulse Resp BP Pulse Ox O2 Del Method O2 Flow Rate 97.9 F 60 14 129/81 H 96 Bi-pap 60 11/09/21 00:00 11/09/21 06:00 11/09/21 06:00 11/09/21 06:00 11/09/21 06:00 11/09/21 06:00 11/08/21 07:00 FiO2 25 11/09/21 06:00 Oxygen Flow Rate (L/min) 60 Oxygen Delivery Method Bi-pap Weight: 206 lb 5.643 oz Body Mass Index (BMI) 35.2 Intake & Output: Intake and Output for Last 24 Hours 11/07/21 11/08/21 11/09/21 23:59 23:59 23:59 Intake Total 3006.67 / 3006.67 2783.33 / 2783.33 1100 / 1100 Output Total 800 / 1050 930 / 1430 975 / 975 Balance 2206.67 / 1956.67 1853.33 / 1353.33 125 / 125 Lab / Micro Data Attestation: I reviewed the patient's lab results. Result Diagrams: 11/08/21 01:51 11/08/21 01:51 Micro: Microbiology 11/07/21 16:16 Urine, Clean Catch Urine Culture - Preliminary GNR lactose blocker and polisher gold wheel 11/08/21 00:50 Urine, Clean Catch Legionella Antigen - Final 11/08/21 00:50 Urine, Clean Catch Streptococcus pneumoniae Antigen (M - Final Radiography Diagnostic Testing: Radiology Impression KUB X-Ray 11/08/21 05:55 IMPRESSION: Non-obstructive bowel gas pattern. Stable mild right hydroureteronephrosis. Bibasilar atelectasis versus infiltrate. Electronically Signed: Tank Padron MD at 7:57 EDT , Physical Exam Const alert and no apparent distress Constitutional Narrative: BiPAP mask currently in place. General Appearance: cooperative Nutritional Appearance: obese HEENT normocephalic and head/scalp atraumatic Teeth and Gingiva: poor dentition Eyes PERRL, EOMs intact bilaterally and conjunctivae normal Neck supple General: trachea midline Chest inspection of chest normal Resp normal respiratory effort Auscultation: Negative for rales, rhonchi or wheezes Cardio regular rate and regular rhythm GI normal to inspection, nondistended, normoactive bowel sounds Extremity no clubbing, cyanosis or edema Skin no rashes or lesions noted Neuro moves all extremities and no focal motor deficits Psych cooperative and affect normal Charges/Coding Visit Charges Inpatient E&M: 97750 Subs Hosp L3
--- NOTE | 2021-11-09 09:46 | PCM.PN.SRG ---
Subjective Subjective patient denies any abdominal pain, she states that she is passing flatus Objective Data Objective Data Vital Signs: Vital Signs Temp Pulse Resp BP Pulse Ox O2 Del Method O2 Flow Rate 97.8 F 72 18 133/79 H 93 Room Air 2 11/09/21 07:00 11/09/21 07:00 11/09/21 07:00 11/09/21 07:00 11/09/21 08:19 11/09/21 08:19 11/09/21 07:00 FiO2 25 11/09/21 06:00 Oxygen Flow Rate (L/min) 2 Oxygen Delivery Method Room Air Weight: 93.6 kg Body Mass Index (BMI) 35.2 Intake & Output: Intake and Output for Last 24 Hours 11/07/21 11/08/21 11/09/21 23:59 23:59 23:59 Intake Total 3006.67 / 3006.67 2783.33 / 2783.33 1200 / 1200 Output Total 800 / 1050 930 / 1430 1425 / 1425 Balance 2206.67 / 1956.67 1853.33 / 1353.33 -225 / -225 Lab / Micro Data Attestation: I reviewed the patient's lab results. Result Diagrams: 11/08/21 01:51 11/08/21 01:51 Micro: Microbiology 11/07/21 16:16 Urine, Clean Catch Urine Culture - Final Escherichia coli 11/08/21 00:50 Urine, Clean Catch Legionella Antigen - Final 11/08/21 00:50 Urine, Clean Catch Streptococcus pneumoniae Antigen (M - Final Physical Exam Const alert Resp normal respiratory effort GI GI Narrative: abdomen is soft and benign Assessment & Plan Assessment/Plan (1) Partial small bowel obstruction: PLAN: Partial small bowel obstruction - resolved Can d/c NG tube sips of clear liquids
[2021-11-09] MEDS: Enoxaparin 40 MG/0.4 ML Syringe SC (10:25)
[2021-11-09] MEDS: Famotidine 200 MG/20 ML MDV 20 MG in 0.9% Normal Saline (Pres. free 8 ML 300 MG IV ×2 (10:26→20:49)
[2021-11-09] MEDS: 0.45% Normal Saline 1,000 ML 50 ML IV (10:26)
--- NOTE | 2021-11-09 10:51 | PN.HOSP_ITS ---
Subjective Subjective Follow-up for acute hypoxic and hypercarbic respiratory failure small bowel obstruction Patient oxygenation and mental function improved. Patient off BiPAP, most recent pulse ox 93% on room air. Patient also passed flatus many times. No bowel movement. Objective Data Objective Data Vital Signs: Vital Signs Temp Pulse Resp BP Pulse Ox O2 Del Method O2 Flow Rate 97.8 F 72 18 133/79 H 93 Room Air 2 11/09/21 07:00 11/09/21 07:00 11/09/21 07:00 11/09/21 07:00 11/09/21 08:19 11/09/21 08:19 11/09/21 07:00 FiO2 25 11/09/21 06:00 Oxygen Flow Rate (L/min) 2 Oxygen Delivery Method Room Air Weight: 206 lb 5.643 oz Body Mass Index (BMI) 35.2 Intake & Output: Intake and Output for Last 24 Hours 11/07/21 11/08/21 11/09/21 23:59 23:59 23:59 Intake Total 3006.67 / 3006.67 2783.33 / 2783.33 2210 / 2210 Output Total 800 / 1050 930 / 1430 2024 / 2024 Balance 2206.67 / 1956.67 1853.33 / 1353.33 185 / 185 Lab / Micro Data Result Diagrams: 11/08/21 01:51 11/08/21 01:51 Micro: Microbiology 11/07/21 16:16 Urine, Clean Catch Urine Culture - Final Escherichia coli 11/08/21 00:50 Urine, Clean Catch Legionella Antigen - Final 11/08/21 00:50 Urine, Clean Catch Streptococcus pneumoniae Antigen (M - Final Physical Exam Narrative Seen and examined General: Awake, answering questions appropriately. HEENT: Atraumatic, pupils bilaterally reactive. EOMI present Oral: Oral mucosa dry. Neck: Supple, No JVD, Negative Carotid Bruits Lungs: Air entry diminished in bilateral lung bases. Bibasilar rhonchi. Hypoxia resolved Cardiovascular: Regular rate, Regular Rhythm, Normal S1, Normal S2, No murmurs Abdomen: Bowel sounds absent. Mild distention. Generalized tenderness present. Deep midline ordered surgical scar. : No renal angle tenderness. No suprapubic tenderness. Extremities: No edema, Capillary Refill Less than 3 Seconds Skin: No rashes, No breakdown Musculoskeletal: No Tenderness to Palpation of Joints or Extremities Neurological: Nonfocal exam. DTR 2+/4. Muscle power 5/5 at major joints.. Psych/Mental Status: Flat affect. Assessment & Plan Assessment/Plan (1) SBO (small bowel obstruction): PLAN: Plan The patient is a 41 y/o F admitted with abdominal pain, distention without significant nausea or vomiting with history of frequent bowel obstruction and x- ray findings consistent with a small bowel obstruction #1. Abdominal pain, nausea, emesis w/ partial SBO: Patient is admitted on MedSur floor. Has NG tube, on conservative line of management for bowel obstruction. IV fluid, antiemetics, famotidine, n.p.o. General surgery cons ulted. KUB shows fecal material throughout the colon. Small bowel decompressed. Surgeon note reviewed. Patient has history of multiple abdominal surgeries including hysterectomy, bowel obstruction, history of hernia repair with mesh which was later on exercise. If patient requires surgery, will need transfer to [facility]. 11/09: Patient passed flatus. NG tube discontinued. Sips to clear liquid. S urgery follow-up appreciated #2. AAcute hypoxic and hypercarbic combined respiratory failure, most likely multifactorial, bilateral pneumonia, opioid induced respiratory depression CO2 retention, had rapid response on 11/07: Patient had severe hypoxia, unresponsiveness,GCS 7. Patient had 2 dosages of Narcan and then patient woke up. Patient denied chest pain. GCS improved to 14. U tox ordered. Opioids discontinued 11/08: ABG 7.24/70/111 on 15 L nonrebreather. Patient refusing for BiPAP but lastly agreed. CTA chest does not show PE but bibasilar pneumonia. On IV antibiotics ceftriaxone and metronidazole. 11/09: Patient to avoid sedating medications. Keep pulse ox more than 90%. Continue antibiotic for possible aspiration. Patient on ceftriaxone and metronidazole. Patient is transferred out of ICU. Chronic anemia/iron deficiency anemia: Admission hemoglobin 12.1, baseline appe ars 11-12, On baseline hemoglobin #3. History prediabetes: Admission glucose 111, noted previously, hemoglobin A1c requested. 11/09: Hemoglobin A1c 5.5%. Glucose 121. #4. Bipolar disorder: follow-up with patient's primary care physician/therapist. 11/09: Patient eyes are half closed. Patient not very interactive or eye to eye contact. #5. Former tobacco use: Encourage continued tobacco cessation. #6. Obesity: Weight loss and lifestyle changes encouraged. #7. DVT prophylaxis: SCDs, Lovenox. Total time of the visit including total time spent in counseling or coordination of care, (more than 50% of the total time, spent in obtaining medical information from nurses and other ancillary care providers,explaining to the patient about labs, imaging, diagnosis and management), discussion with web development consultant, review of labs and imaging is 45 minutes. Charges/Coding Visit Charges Inpatient E&M: 96918 Subs Hosp L3
[2021-11-09] MEDS: Ceftriaxone 1 GM/50 ML BAG IV (20:50)
[2021-11-09] MEDS: 0.9% Saline Lock 10 ML Syringe IV (21:01)
[2021-11-10 02:12] VITALS: BP 119/93; PULSE 65; RESP 16; TEMP 37; O2SAT 95
[2021-11-10 03:00] VITALS: PULSE 64
[2021-11-10 06:02] VITALS: BP 110/63; PULSE 57; RESP 16; TEMP 36.8; O2SAT 92
[2021-11-10] MEDS: metroNIDAZOLE 500 MG/100 ML BAG 100 MG IV (06:05)
--- NOTE | 2021-11-10 06:50 | PN.CC_ITS ---
Assessment & Plan Assessment/Plan (1) Acute respiratory failure: PLAN: Plan RECOMMENDATIONS: 1. Walking oximetry prior to discharge 2. Okay to discharge from a pulmonary perspective if not requiring supplemental oxygen 3. Complete 7 days of antibiotics 4. Continue to avoid sedating medications. 5. No outpatient pulmonary follow-up would be required unless requested 6. Hemodynamically stable on room air. Will sign off from a critical care perspective IMPRESSIONS: 1. Acute combined respiratory failure Most likely multifactorial in etiology with underlying bilateral pneumonia and opiate induced respiratory depression contributing. The patient did receive Narcan, with continued lethargy, which responded to BiPAP therapy and time. The patient is alert and interactive this morning on room air. Patient should have a walking oximetry prior to discharge to ensure supplemental oxygen is not required. Complete course of antimicrobials to cover for potential aspiration. Continue to avoid sedating medications. Given she is hemodynamically stable on room air. Will sign off from a critical care perspective. Could consider outpatient sleep work-up, but defer to primary service/PCP 2. Partial SBO Continue conservative measures per general surgery with fluids and nasogas tric tube. 3. History of bipolar disorder/chronic tobacco dependency in remission /obesity/anemia Complicates care, management, recovery and prognosis. Continue home m edications as indicated. This note was generated with [employer] dictation software. It may contain incorrect words, spelling, and punctuation that were not noted in checking the note before signing. Subjective Subjective Patient transferred out of the intensive care unit yesterday. No acute issues reported overnight. Patient subjectively feels improved. Patient has been weaned to room air and tolerating well. Patient is reporting only a mild cough. Patient did have 5 bowel movements overnight per her report. Objective Data Objective Data Vital Signs: Vital Signs Temp Pulse Resp BP Pulse Ox O2 Del Method O2 Flow Rate 36.8 C 57 L 16 110/63 92 Room Air 2 11/10/21 06:02 11/10/21 06:02 11/10/21 06:02 11/10/21 06:02 11/10/21 06:02 11/10/21 06:02 11/09/21 07:00 FiO2 25 11/09/21 06:00 Oxygen Flow Rate (L/min) 2 Oxygen Delivery Method Room Air Weight: 93.5 kg Body Mass Index (BMI) 35.2 Intake & Output: Intake and Output for Last 24 Hours 11/08/21 11/09/21 11/10/21 23:59 23:59 23:59 Intake Total 2783.33 / 2783.33 2582.5 / 2682.5 100 / 100 Output Total 930 / 1430 2425 / 2425 Balance 1853.33 / 1353.33 157.5 / 257.5 100 / 100 Lab / Micro Data Result Diagrams: 11/08/21 01:51 11/08/21 01:51 Micro: Microbiology 11/08/21 23:00 Sputum, Expectorated/Coughed Gram Stain - Final 11/07/21 16:16 Urine, Clean Catch Urine Culture - Final Escherichia coli 11/08/21 00:50 Urine, Clean Catch Legionella Antigen - Final 11/08/21 00:50 Urine, Clean Catch Streptococcus pneumoniae Antigen (M - Final Physical Exam Const alert, oriented x3 and no apparent distress General Appearance: cooperative Nutritional Appearance: obese HEENT normocephalic and head/scalp atraumatic Eyes PERRL, EOMs intact bilaterally and conjunctivae normal Neck supple General: trachea midline Chest inspection of chest normal Resp normal respiratory effort Resp Narrative: Poor inspiratory effort with scant rhonchi. Auscultation: Negative for rales, rhonchi or wheezes Cardio regular rate, regular rhythm, S1 normal heart sound, S2 normal heart sound, no murmurs, no rub and no gallops GI normal to inspection, nondistended, normoactive bowel sounds Extremity no clubbing, cyanosis or edema Skin no rashes or lesions noted Neuro moves all extremities and no focal motor deficits Neuro Narrative: Lethargic. Opens eyes to verbal stimulation and falls quickly back to sleep. Psych cooperative and affect normal Charges/Coding Visit Charges Inpatient E&M: 60127 Subs Hosp L2
[2021-11-10 06:51] VITALS: PULSE 58
[2021-11-10 06:54] VITALS: O2SAT 90; O2SAT 95
--- NOTE | 2021-11-10 08:00 | PCM.PN.SRG ---
Subjective Subjective Patient evaluated resting comfortably in bed. She denies abdominal pain, discomfort. She denies nausea, vomiting, fever. She notes positive flatus and 5 bowel movements over night. She notes bowel movements are loose however this is normal for her since her last bowel surgery in 2019. Objective Data Objective Data Vital Signs: Vital Signs Temp Pulse Resp BP Pulse Ox O2 Del Method O2 Flow Rate 98.2 F 58 L 16 110/63 92 Room Air 2 11/10/21 06:02 11/10/21 06:51 11/10/21 06:02 11/10/21 06:02 11/10/21 06:02 11/10/21 06:02 11/09/21 07:00 FiO2 25 11/09/21 06:00 Oxygen Flow Rate (L/min) 2 Oxygen Delivery Method Room Air Weight: 206 lb 2.115 oz Body Mass Index (BMI) 35.2 Intake & Output: Intake and Output for Last 24 Hours 11/08/21 11/09/21 11/10/21 23:59 23:59 23:59 Intake Total 2783.33 / 2783.33 2582.5 / 2682.5 100 / 100 Output Total 930 / 1430 2425 / 2425 Balance 1853.33 / 1353.33 157.5 / 257.5 100 / 100 Lab / Micro Data Result Diagrams: 11/08/21 01:51 11/08/21 01:51 Micro: Microbiology 11/08/21 04:10 Blood Culture (Wb) - Left Hand Blood Culture - Preliminary No growth in 48 hours. 11/08/21 01:51 Blood Culture (Wb) - Arm Right Blood Culture - Preliminary No growth in 48 hours. 11/08/21 23:00 Sputum, Expectorated/Coughed Gram Stain - Final 11/07/21 16:16 Urine, Clean Catch Urine Culture - Final Escherichia coli 11/08/21 00:50 Urine, Clean Catch Legionella Antigen - Final 11/08/21 00:50 Urine, Clean Catch Streptococcus pneumoniae Antigen (M - Final Physical Exam GI normal to inspection, nondistended, normoactive bowel sounds, soft to palpation and non-tender GI Narrative: Large healed mid-line incision on the abdomen Assessment & Plan Assessment/Plan (1) Partial small bowel obstruction: (2) History of small bowel obstruction: PLAN: Small bowel obstruction has seemed to resolve Patient has improved from a surgical standpoint Increase diet to full liquids with low fiber Recommend low fiber diet as an outpatient on regular food Discussed increasing diet slowly once discharged over the next 2-3 days Follow-up with Dr. Orona as needed on an outpatient basis I have evaluated this patient in conjunction with Dr. Jack in Dr. Orona's absence Thank you for allowing us to participate in this patient's care Charges/Coding Visit Charges Inpatient E&M: 55601 Subs Hosp L1
[2021-11-10 08:08] VITALS: O2SAT 92
--- NOTE | 2021-11-10 09:07 | DCINST_ITS ---
Discharge Instructions Diet Discharge Diet: Soft diet (Full liquid to low fibre diet) Activity Discharge Activity: May Not Drive Weight Bearing Status: Weight bearing as tolerated Dressing / Incision Call your doctor if you observe: Fever of 101 or Higher, Coldness, Increased Pain, Numbness or Tingling, Change in Color, Inability to urinate, Inability to have a bowel movement, Using more than 1 pad per hour, Shortness of breath, Dizziness, Fainting spells, Swelling in the ankles, Chest pain, Prolonged hiccupping, Increased palpitations (irregular heartbeat), Calf discomfort and Uncontrolled pain Follow Up Care Test Results: Test results from this visit will be discussed in further detail at your follow- up appointment, if applicable. Discharge Plan Admission Admit Date/Time: 11/07/21 03:37 Primary Reason for Your Visit: Patial SBO, acute hypoxic respiratory failure Attending Provider: Angelo Talamantes Primary Care Provider: Mesfin Ramos Consulting Providers: January Chambers ; Kari Orona ; Murray Oliveros Discharge Orders/Prescriptions Prescriptions: New metronidazole 500 mg tablet 500 mg PO TID Qty: 15 0RF levofloxacin 500 mg tablet 500 mg PO DAILY 5 Days Qty: 5 0RF Continued colestipol 1 gram tablet 1 g PO BID Label Comments: Take 1 tablet by mouth twice daily. docusate sodium [Colace] 100 mg capsule 100 mg PO DAILY Qty: 30 0RF magnesium citrate Solution 300 ml PO DAILY PRN (Reason: constipation) Qty: 600 0RF Referrals / Follow Up: Mesfin Ramos PA [Primary Care Provider] - Disposition Disposition (needs filled in before D/C Order can be placed): Home, Self Care
[2021-11-10] MEDS: Famotidine 200 MG/20 ML MDV 20 MG in 0.9% Normal Saline (Pres. free 8 ML 300 MG IV (09:42)
--- NOTE | 2021-11-10 10:03 | CASEMGMT ---
Pt has been independent in room and does not qualify for home oxygen at discharge. Julisa SHERMAN CM
--- NOTE | 2021-11-10 11:05 | PHA.DC.MC ---
Pharmacy Service has performed discharge medication reconciliation and counseling for this patient. 1. METRONIDAZOLE 500MG PO TID X 5 DAYS 2. LEVOFLOXACIN 500MG PO DAILY X 5 DAYS The patient's discharge medication list was reviewed for discrepancies and discrepancies were resolved. Home Medications colestipol 1 gram tablet 1 g PO BID Check with primary doctor 02/22/21 docusate sodium 100 mg capsule (Colace) 100 mg PO DAILY #30 caps 10/16/21 magnesium citrate 300 ml PO DAILY PRN constipation #600 mL 10/16/21 levofloxacin 500 mg tablet 500 mg PO DAILY 5 days #5 tabs 11/10/21 metronidazole 500 mg tablet 500 mg PO TID #15 tabs 11/10/21 The patient was counseled on the following discharge medications and changes in medications for homegoing were reviewed. The Reason for Use, instructions for use, and potential side effects were reviewed for all new medications. The patient's questions regarding all of their medications were answered. The patient was able to verbally demonstrate an understanding of their discharge medications.
--- NOTE | 2021-11-10 17:21 | PCM.DC.SUM ---
Providers Date of Admission: 11/07/21 Date of Discharge: 11/10/21 Primary Care Physician: TEETEE Escoto Consultations 11/07/21 04:35 Consult: General Surgery Routine Consulting Provider: Kari Orona Reason for Consult: pSBO EMERGENT Consult: No MD Notified: Yes Date Notified: 11/07/21 Time Notified: 03:38 Method of Notification: ED Physician Initiated 11/07/21 23:28 Consult: Home Health Care Physician / Pulmonary Medicine Routine Consulting Provider: Murray Oliveros Reason for Consult: Encephalopathy, Resp failure, BL PNA, admit w/ SBO, NGT in place. EMERGENT Consult: No MD Notified: Yes Date Notified: 11/07/21 Time Notified: 22:45 Method of Notification: Text Reason For Visit: pSBO Diagnosis Discharge Diagnosis (1) Partial small bowel obstruction: Status: Acute Code(s): K56.600 - Partial intestinal obstruction, unspecified as to cause (2) History of small bowel obstruction: Status: Chronic Code(s): Z87.19 - Personal history of other diseases of the digestive system Medications at Discharge Home Medications colestipol 1 gram tablet 1 g PO BID Check with primary doctor 02/22/21 docusate sodium 100 mg capsule (Colace) 100 mg PO DAILY #30 caps 10/16/21 magnesium citrate 300 ml PO DAILY PRN constipation #600 mL 10/16/21 levofloxacin 500 mg tablet 500 mg PO DAILY 5 days #5 tabs 11/10/21 metronidazole 500 mg tablet 500 mg PO TID #15 tabs 11/10/21 Hospital Course Summary of Care Provided Hospital Course: The patient is a 41 y/o F admitted with abdominal pain, distention without significant nausea or vomiting with history of frequent bowel obstruction and x-ray findings consistent with a small bowel obstruction #1. Abdominal pain, nausea, emesis w/ partial SBO: Patient is admitted on MedSurg floor. Has NG tube, on conservative line of management for bowel obstruction. IV fluid, antiemetics, famotidine, n.p.o. General surgery consulted. KUB shows fecal material throughout the colon. Small bowel decompressed. Surgeon note reviewed. Patient has history of multiple abdominal surgeries including hysterectomy, bowel obstruction, history of hernia repair with mesh which was later on exercise. If patient requires surgery, will need transfer to [facility]. 11/09: Patient passed flatus. NG tube discontinued. Sips to clear liquid. Surgery follow-up appreciated 11/10: Patient passed 5 bowel movements. Abdominal pain and tenderness resolved. Patient follows [facility] surgeon Dr. Ramos advised to follow-up. I suggested if she cannot follow Dr. Ramos, follow-up with Dr. Osullivan. #2. Acute hypoxic and hypercarbic combined respiratory failure, most likely multifactorial, bilateral pneumonia, opioid induced respiratory depression CO2 retention, had rapid response on 11/07: Patient had severe hypoxia, unresponsiveness,GCS 7. Patient had 2 dosages of Narcan and then patient woke up. Patient denied chest pain. GCS improved to 14. U tox ordered. Opioids discontinued 11/08: ABG 7.24/70/111 on 15 L nonrebreather. Patient refusing for BiPAP but lastly agreed. CTA chest does not show PE but bibasilar pneumonia. On IV antibiotics ceftriaxone and metronidazole. 11/09: Patient to avoid sedating medications. Keep pulse ox more than 90%. Continue antibiotic for possible aspiration. Patient on ceftriaxone and metronidazole. Patient is transferred out of ICU. 11/10: Acute hypoxic and hypercarbic respiratory failure resolved. Patient on room air Chronic anemia/iron deficiency anemia: Admission hemoglobin 12.1, baseline appears 11-12, On baseline hemoglobin #3. History prediabetes: Admission glucose 111, noted previously, hemoglobin A1c requested. 11/09: Hemoglobin A1c 5.5%. Glucose 121. #4. Acute encephali most likely due to metabolic, opioids and bowel obstruction on baseline bipolar disorder: 11/09: Patient eyes are half closed. Patient not very interactive or eye to eye contact. 11/10: Acute encephalopathy resolved. #5. Former tobacco use: Encourage continued tobacco cessation. #6. Obesity: Weight loss and lifestyle changes encouraged. #7. DVT prophylaxis: SCDs, Lovenox. Discharge medication reconciliation done. Discharge follow-up instructions completed. Discharge process discussed with the patient and all questions were answered to patient's satisfaction. Total time spent, exact 35 minutes on discharge meds reconciliation, examination, coordination of care with nurses and ancillary staff, review of imaging and blood test and discussion with the patient on follow-up instructions. Physical Exam Narrative Seen and examined Patient passed flatus yesterday. She had 5 bowel movements today. Abdominal pain resolved. General: Awake, alert, oriented x3.. HEENT: Atraumatic, pupils bilaterally reactive. EOMI present Oral: Oral mucosa dry. Neck: Supple, No JVD, Negative Carotid Bruits Lungs: Air entry diminished in bilateral lung bases. Lungs clear hypoxia resolved Cardiovascular: Regular rate, Regular Rhythm, Normal S1, Normal S2, No murmurs Abdomen: Bowel sounds present. Abdominal tenderness and distention resolved. No tenderness. Deep midline ordered surgical scar. : No renal angle tenderness. No suprapubic tenderness. Extremities: No edema, Capillary Refill Less than 3 Seconds Skin: No rashes, No breakdown Musculoskeletal: No Tenderness to Palpation of Joints or Extremities Neurological: Nonfocal exam. DTR 2+/4. Muscle power 5/5 at major joints.. Psych/Mental Status: Flat affect. Weight / BMI Weight Weight: 206 lb 2.115 oz Body Mass Index (BMI) 35.2 ABG / Lab / Microbiology Data Result Diagrams: 11/08/21 01:51 11/08/21 01:51 Microbiology: Microbiology 11/08/21 04:10 Blood Culture (Wb) - Left Hand Blood Culture - Preliminary No growth in 48 hours. 11/08/21 01:51 Blood Culture (Wb) - Arm Right Blood Culture - Preliminary No growth in 48 hours. 11/08/21 23:00 Sputum, Expectorated/Coughed Gram Stain - Final 11/07/21 16:16 Urine, Clean Catch Urine Culture - Final Escherichia coli 11/08/21 00:50 Urine, Clean Catch Legionella Antigen - Final 11/08/21 00:50 Urine, Clean Catch Streptococcus pneumoniae Antigen (M - Final D/C Instructions Discharge Diet: Soft diet (Full liquid to low fibre diet) Weight Bearing Status: Weight bearing as tolerated Call your doctor if you observe: Fever of 101 or Higher, Coldness, Increased Pain, Numbness or Tingling, Change in Color, Inability to urinate, Inability to have a bowel movement, Using more than 1 pad per hour, Shortness of breath, Dizziness, Fainting spells, Swelling in the ankles, Chest pain, Prolonged hiccupping, Increased palpitations (irregular heartbeat), Calf discomfort and Uncontrolled pain Meaningful Use Info Meaningful Use Diagnoses (Choose all that apply): None applicable Discharge Plan Admission Admit Date/Time: 11/07/21 03:37 Primary Reason for Your Visit: Patial SBO, acute hypoxic respiratory failure Attending Provider: Angelo Talamantes Primary Care Provider: Mesfin Ramos Consulting Providers: January Chambers ; Kari Orona ; Murray Oliveros Discharge Orders/Prescriptions Prescriptions: New metronidazole 500 mg tablet 500 mg PO TID Qty: 15 0RF levofloxacin 500 mg tablet 500 mg PO DAILY 5 Days Qty: 5 0RF Continued colestipol 1 gram tablet 1 g PO BID Label Comments: Take 1 tablet by mouth twice daily. docusate sodium [Colace] 100 mg capsule 100 mg PO DAILY Qty: 30 0RF magnesium citrate Solution 300 ml PO DAILY PRN (Reason: constipation) Qty: 600 0RF Referrals / Follow Up: Mesfin Ramos, PA [Primary Care Provider] - Within 1 Week Kari Orona MD [Med Staff - Active Staff] - Within 1 Week ( In case, doesn't see Dr Ramos, [facility]) Disposition Disposition (needs filled in before D/C Order can be placed): Home, Self Care Charges/Coding Visit Charges Inpatient E&M: 92996 Disch Hosp
== END 2021-11-10 12:58 | disposition home or self-care (01) | DRG 247 ==
LOC: ED 11-07 03:24 → MS3 11-07 03:52 → ICU 11-08 18:21 → PCU 11-09 12:45
PROVIDERS: Admitting Provider Family Medicine; Emergency Provider Emergency Medicine; PCP Physician Assistant; Visit Provider Internal Medicine
DX: K56.600 Partial intestinal obstruction, unspecified as to cause (principal); J96.01 Acute respiratory failure with hypoxia; J69.0 Pneumonitis due to inhalation of food and vomit; J96.02 Acute respiratory failure with hypercapnia; F31.9 Bipolar disorder, unspecified; M06.9 Rheumatoid arthritis, unspecified; E78.5 Hyperlipidemia, unspecified; D50.9 Iron deficiency anemia, unspecified; T40.2X5A Adverse effect of other opioids, initial encounter; N39.0 Urinary tract infection, site not specified; E66.9 Obesity, unspecified; Z87.891 Personal history of nicotine dependence; Z68.35 Body mass index [BMI] 35.0-35.9, adult; R73.03 Prediabetes
CPT/HCPCS: 36415; 36600; 71045; 71275; 74018; 74177; 80048; 80053; 80076; 80307; 81001; 82140; 82803; 82962; 83036; 83605; 83690; 85025; 87040; 87070; 87077; 87086; 87088; 87186; 87205; 87449; 87641; 94003; 94640; 94660; 99284; J7030; Q9967; A4216; J2310; J2405; J3490

== ENCOUNTER 2021-12-15 18:05 | Emergency (ER) | payer MEDICAID, SELFPAY ==
[2021-12-15 18:06] VITALS: BP 105/77; PULSE 86; RESP 16; TEMP 36.6; O2SAT 96; BMI 34.0
--- NOTE | 2021-12-15 18:13 | ED.RN ---
PT STATES PAIN IS WORSE WHEN SHE IS AT WORK
--- NOTE | 2021-12-15 18:30 | EDS_ITS ---
HPI History of Present Illness Chief Complaint: Abd Pain Informant: patient Onset/Context/Timing Onset: Today Current Severity: Moderate Maximum Severity: Moderate Narrative Narrative: Patient present secondary to abdominal pain. She states was at work today and twisted. She felt a pop sensation along her left abdomen and now has pain to that area. She is had multiple abdominal surgeries including hysterectomy, appendectomy, cholecystectomy. She is had no vomiting or diarrhea. No urinary symptoms. She was recently admitted with a small bowel obstruction. [facility] Medical History Bipolar disorder Bowel obstruction Former smoker Former tobacco use History of borderline diabetes mellitus History of multiple abdominal surgeries History of small bowel obstruction HLD (hyperlipidemia) Iron deficiency anemia Obesity Rheumatoid arthritis SBO (small bowel obstruction) Home Medications colestipol 1 gram tablet 1 g PO BID Check with primary doctor 02/22/21 [History Last Taken Unknown] docusate sodium 100 mg capsule (Colace) 100 mg PO DAILY #30 caps 10/16/21 [Rx Last Taken Unknown] magnesium citrate 300 ml PO DAILY PRN constipation #600 mL 10/16/21 [Rx Last Taken Unknown] levofloxacin 500 mg tablet 500 mg PO DAILY 5 days #5 tabs 11/10/21 [Rx Last Taken Unknown] metronidazole 500 mg tablet 500 mg PO TID #15 tabs 11/10/21 [Rx Last Taken Unknown] naproxen 500 mg tablet (Naprosyn) 500 mg PO BID PRN pain #20 tabs 12/15/21 [Rx Last Taken Unknown] Allergy/AdvReac Type Severity Reaction Status Date / Time hydromorphone HCl Allergy Severe Anaphylaxis Verified 12/15/21 18:15 [From Dilaudid] aspirin [From Percodan] Allergy Intermediate Swelling Verified 12/15/21 18:15 oxycodone terephthalate Allergy Intermediate Swelling Verified 12/15/21 18:15 [From Percodan] amoxicillin Allergy Hives Verified 12/15/21 18:15 azithromycin Allergy Other Verified 12/15/21 18:15 erythromycin base Allergy Hives Verified 12/15/21 18:15 oxycodone HCl [From Percocet] Allergy Anaphylaxis Verified 12/15/21 18:15 propoxyphene napsylate Allergy Other Verified 12/15/21 18:15 [From Darvocet-N] Sulfa (Sulfonamide Allergy Other Verified 12/15/21 18:15 Antibiotics) tramadol Allergy Hives Verified 12/15/21 18:15 Family History Father Cancer Hx Leukemia. Diabetes CVA (cerebral vascular accident) Mother Cancer Surgical History H/O: hysterectomy History of appendectomy History of bowel resection S/P cholecystectomy S/P exploratory laparotomy Social History household members: family Smoking Status: Former smoker alcohol intake: never substance use type: does not use ROS ROS ED Constitutional Constitutional ED: Denies chills or fever(s) Eyes Eyes: Denies change in vision or discharge from eye(s) ENT ENT ED: Denies discharge from eye(s), rhinorrhea or sore throat Cardiovascular Cardiovascular: Denies chest pain or palpitations Respiratory/Chest Respiratory/Chest: Denies cough or dyspnea Gastrointestinal Gastrointestinal: Reports abdominal pain; Denies diarrhea, nausea or vomiting Genitourinary Genitourinary ED: Denies difficulty urinating or dysuria Musculoskeletal Musculoskeletal: Denies back pain or extremity pain Integumentary Denies Abrasions or rash Neurologic Neurologic: Denies headache(s) or weakness Psychiatric Psychiatric: Denies anxiety or depression Allergic/Immunologic Allergic/Immunologic ED: Denies lip swelling or urticaria EXAM Physical Exam Const Vital Signs: 12/15/21 18:06 Temperature 97.8 F Temperature Source Temporal Pulse Rate 86 Respiratory Rate 16 Blood Pressure 105/77 Blood Pressure Mean 86 Pulse Ox 96 Oxygen Delivery Method Room Air Positive well nourished and well developed General Appearance ED: well developed HEENT Reports normocephalic and head/scalp atraumatic Eyes PERRL and EOMs intact bilaterally Neck supple Chest Wall inspection of chest normal and palpation of chest normal Resp normal respiratory effort and clear to auscultation bilaterally Cardio regular rate and regular rhythm GI GI Narrative: Abdomen soft with diffuse tenderness of patient, left greater than right. No guarding or rebound. Normal bowel sounds noted. Multiple abdominal surgical scars noted. Palpation: soft Back/Spine no CVA tenderness Extremity normal to inspection Neuro oriented x3 and no sensory deficits noted Sensorium / Orientation: alert Motor Exam: strength 5/5 throughout Psych mental status grossly normal Skin no rashes or lesions noted MDM MDM MDM Narrative Medical decision making narrative: Patient given a dose of naproxen. Acute abdominal series obtained. Radiography Diagnostic Testing: Clinical Impression(s) from Imaging Studies Acute Abdomen Series 12/15/21 18:52 IMPRESSION: 1. Question early or incomplete small bowel obstruction. 2. Bibasilar atelectasis without acute pulmonary disease. Electronically Signed: Selvin Corrales DO at 19:30 EDT Reading Location ID and State: [address] [place] [address] Tel [phone], Service support , Treatment and Re-Evaluation Narrative: Patient resting comfortably on repeat evaluation. Abdominal series x-ray per my interpretation reveals a couple air-fluid levels. Patient did have a recent small bowel obstruction. Radiology interpretation is reviewed. I did verify with patient again that she is passing gas and having normal bowel movements. I believe this is still resolving. I advised her to keep a close eye on this to ensure she does not start to have more problems with her obstruction symptoms. She will be written lifting restrictions at work for the next 3 days. Discharge Plan Triage Chief Complaint: Abd Pain ED Provider: Mayuri Smith Dx/Rx/DC Orders Clinical Impression: Abdominal wall strain Instructions: ED Muscle Strain, Abdomen Prescriptions: New naproxen [Naprosyn] 500 mg tablet 500 mg PO BID PRN (Reason: pain) Qty: 20 0RF No Action colestipol 1 gram tablet 1 g PO BID Label Comments: Take 1 tablet by mouth twice daily. docusate sodium [Colace] 100 mg capsule 100 mg PO DAILY Qty: 30 0RF magnesium citrate Solution 300 ml PO DAILY PRN (Reason: constipation) Qty: 600 0RF metronidazole 500 mg tablet 500 mg PO TID Qty: 15 0RF levofloxacin 500 mg tablet 500 mg PO DAILY 5 Days Qty: 5 0RF Stand Alone Forms: ED Work / School Excuse Primary Care Provider: Mesfin Ramos Referrals: Mesfin Ramos, PA [Primary Care Provider] - 1 Week if not improving Disposition Disposition: Home, Self Care
[2021-12-15] MEDS: Naproxen 500 MG Tablet PO (18:33)
--- NOTE | 2021-12-15 18:52 | RAD_ITS ---
STUDY: X-RAY - ACUTE ABDOMINAL SERIES REASON FOR EXAM: Female, 41 years old. Pain. Severe right sided abdominal pain after hearing a pop while lifting something TECHNIQUE: Single view of the chest. Supine, and erect view(s) of the abdomen were obtained. COMPARISON: None. FINDINGS: Linear atelectasis at the lung bases. There is no acute infiltrate or mass within the lungs. Normal size heart. Normal mediastinum and brennen. Normal visualized pulmonary arteries. Normal visualized aortic arch and descending thoracic aorta. There are multiple distended small bowel loops with air-fluid levels within the mid abdomen. A possibility of colonic air. No free air is seen. The soft tissue structures of the abdomen and pelvis are unremarkable. Normal visualized osseous structures. RAD/Acute Abdomen Inc Chest IMPRESSION: 1. Question early or incomplete small bowel obstruction. 2. Bibasilar atelectasis without acute pulmonary disease. Electronically Signed: Selvin Corrales DO at 19:30 EDT ,
[2021-12-15 19:43] VITALS: BP 118/90; PULSE 87; RESP 15; O2SAT 98
== END 2021-12-15 19:44 | disposition home or self-care (01) ==
PROVIDERS: Emergency Provider Emergency Medicine; PCP Physician Assistant; Visit Provider Emergency Medicine
DX: R10.9 Unspecified abdominal pain (principal); M06.9 Rheumatoid arthritis, unspecified; F31.9 Bipolar disorder, unspecified; D50.9 Iron deficiency anemia, unspecified; E78.5 Hyperlipidemia, unspecified; E66.9 Obesity, unspecified; Z87.891 Personal history of nicotine dependence; Z90.710 Acquired absence of both cervix and uterus; Z90.49 Acquired absence of other specified parts of digestive tract
CPT/HCPCS: 74022; 99283

== ENCOUNTER 2022-03-10 09:25 | Emergency (ER) | payer MEDICAID, SELFPAY ==
[2022-03-10] VITALS (9 sets, daily range): BP systolic 53–103; BP diastolic 40–79; PULSE 60–90; RESP 14–18; TEMP 36.6; O2SAT 94–100; BMI 35.4
--- NOTE | 2022-03-10 09:51 | CT_ITS ---
STUDY: CT ABDOMEN AND PELVIS WITH CONTRAST REASON FOR EXAM: Female, 41 years old. AbdominAL pAIN history of obstruction. Prior bowel resections. RADIATION DOSAGE (If Supplied By Facility): CTDIvol = ( 15.42 ) mGy, DLP = ( 1082.29 ) mGycm TECHNIQUE: Transaxial images were obtained from the dome of the diaphragm to the symphysis pubis without oral contrast. IV 100mL Isovue-300 was administered. Sagittal and coronal images were reconstructed. Individualized dose optimization techniques were used for this CT. COMPARISON: Comparison is made with prior study dated 11/06/2021. FINDINGS: Persistent mild degree of increased markings at the lung bases suggestive of bibasilar atelectasis and/or early infiltrates. The visualized portions of the heart are within normal limits. There is decreased attenuation of the liver consistent with steatosis. The gallbladder is contracted. Normal spleen. Normal pancreas. Normal bilateral adrenal glands. Normal right kidney. Normal left kidney. Normal visualized stomach. Once again, there is evidence of a localized the small bowel dilatation in the left lower quadrant at the site of the small bowel anastomosis. There is equalization of the small bowel at that site. The distal small bowel is decompressed. Normal colon. The patient is status post appendectomy. Normal abdominal aorta. Normal inferior vena cava. Normal retroperitoneum. Normal urinary bladder. There is absence of the uterus consistent with a prior hysterectomy. Normal abdominal wall. Normal osseous structures. CT/Abdomen/Pelvis W IV Cont ONLY IMPRESSION: Focal dilatation of the distal small bowel in the left lower quadrant with equalization. This is at the level of the small bowel anastomosis. The distal small bowel past this area is decompressed. Persistent bibasilar atelectasis and/or early infiltrates. Electronically Signed: Kali Luque MD at 12:39 EST ,
--- NOTE | 2022-03-10 09:52 | EDS_ITS ---
HPI HPI - GI History of Present Illness Chief Complaint: Abd Pain Narrative Narrative: 41-year-old female states that she has chronic bowel obstruction. She states remotely she had her large and small bowel twisted upon itself. She had surgery for that, then 2 days later reportedly her bowel ruptured. She had surgery down in [place] at [facility], but states she does not want to return there. She had surgery last year for bowel obstruction at that time. She was told that she would always have bowel obstructions and that when her abdominal pain acted up that she would end up in the emergency department. She states she was okay this morning but when she went to work today at [employer], she had sharp abdominal pain that felt like someone had hit her in the stomach with a baseball bat. She had a bowel movement earlier today, but has chronic diarrhea. She presents for evaluation to make sure that she does not have a bad bowel obstruction. She states the last time she was observed overnight and she did not require an NG tube, and that it went away with medication. [facility] Medical History Bipolar disorder Bowel obstruction Former smoker Former tobacco use History of borderline diabetes mellitus History of multiple abdominal surgeries History of small bowel obstruction HLD (hyperlipidemia) Iron deficiency anemia Obesity Rheumatoid arthritis SBO (small bowel obstruction) Home Medications magnesium hydroxide 1,200 mg chewable tablet (Dulcolax (magnesium hydroxide)) 1,200 mg PO QHS STOOL 03/10/22 [History Last Taken 03/09/22] Allergy/AdvReac Type Severity Reaction Status Date / Time hydromorphone HCl Allergy Severe Anaphylaxis Verified 12/15/21 18:15 [From Dilaudid] aspirin [From Percodan] Allergy Intermediate Swelling Verified 12/15/21 18:15 oxycodone terephthalate Allergy Intermediate Swelling Verified 12/15/21 18:15 [From Percodan] amoxicillin Allergy Hives Verified 12/15/21 18:15 ampicillin Allergy Swelling Verified 03/10/22 09:29 azithromycin Allergy Other Verified 12/15/21 18:15 erythromycin base Allergy Hives Verified 12/15/21 18:15 oxycodone HCl [From Percocet] Allergy Anaphylaxis Verified 12/15/21 18:15 propoxyphene napsylate Allergy Other Verified 12/15/21 18:15 [From Darvocet-N] Sulfa (Sulfonamide Allergy Other Verified 12/15/21 18:15 Antibiotics) tramadol Allergy Hives Verified 12/15/21 18:15 Family History Father Cancer Hx Leukemia. Diabetes CVA (cerebral vascular accident) Mother Cancer Surgical History H/O: hysterectomy History of appendectomy History of bowel resection S/P cholecystectomy S/P exploratory laparotomy Social History household members: family Smoking Status: Current every day smoker tobacco type: cigarettes alcohol intake: never substance use type: does not use ROS ROS ED ROS Narrative Constitutional: No fever, no chills. HEENT: No sore throat. No neck pain. No loss of vision. No rhinorrhea. Cardiovascular: No chest pain. No palpitations. No pedal edema. Respiratory: No cough, no shortness of breath. Abdominal: Positive left lower quadrant abdominal pain. No nausea. No vomiting. Chronic diarrhea, last episode this morning. Genitourinary: No dysuria. No hematuria. Musculoskeletal: No myalgias. No arthralgias. Neurologic: No headaches. No dizziness. No lightheadedness. Skin: No rash. No change in color. Psychiatric: No depression. No anxiety. EXAM Physical Exam Narrative Exam Narrative: Afebrile. Vital signs noted. HEENT: Normocephalic. Atraumatic. PERRL, EOMI. Neck soft and supple. No point tenderness or step off. Cardiovascular: Regular rate and rhythm. No murmurs, rubs, or gallops appreciated. Respiratory: No tachypnea. Lungs clear to auscultation bilaterally. Gastrointestinal: Abdomen soft, mild tenderness left lower quadrant, with normoactive bowel sounds. No rebound or guarding. Neurological: Awake. Alert. Nonfocal, nonlateralizing. Ambulated to bathroom in ED. Skin: No rash. Normal color. No pallor. Musculoskeletal: No pedal edema. Full range of motion extremities. Const Vital Signs: 03/10/22 09:26 03/10/22 09:28 03/10/22 11:46 Temperature 98 F 98 F Temperature Source Temporal Temporal Pulse Rate 86 86 90 Respiratory Rate 18 18 18 Blood Pressure 102/73 102/73 94/57 L Blood Pressure Mean 82 82 69 Pulse Ox 97 97 98 Oxygen Delivery Method Room Air Room Air Room Air 03/10/22 11:51 03/10/22 12:26 03/10/22 12:31 Temperature Temperature Source Pulse Rate 66 66 62 Respiratory Rate 16 16 14 Blood Pressure 101/79 53/40 L 82/58 L Blood Pressure Mean 86 44 66 Pulse Ox 98 97 100 Oxygen Delivery Method Room Air Room Air Room Air 03/10/22 13:04 03/10/22 13:26 Temperature Temperature Source Pulse Rate 60 62 Respiratory Rate 16 16 Blood Pressure 83/61 L 100/72 Blood Pressure Mean 68 81 Pulse Ox 98 100 Oxygen Delivery Method Room Air Room Air MDM MDM MDM Narrative Medical decision making narrative: Comprehensive work-up was pursued. I will obtain CT imaging to rule out bowel obstruction. She was administered morphine and ondansetron. Patient has normal white count of 7.4, hemoglobin stable at 11.9, hematocrit 37.8. Normal platelet count of 222. Electrolyte panel shows chloride slightly elevated at 109, creatinine 1.12 with a normal BUN of 16. Glucose appropriately elevated at 118 with a normal anion gap of 9. AST and ALT and alk phos are normal. Serum test is negative. Urinalysis is negative for infection. CT of the abdomen and pelvis does show dilation proximal to the anastomosis of her small bowel in the left lower quadrant, with collapse of the small bowel distal to the anastomosis. It is unsure if this is a chronic dilation, but patient states that she is nauseated and has pain and was told by her surgeon in [place] that this is usually a sign that she is obstructed. I had ordered NG tube placement, but patient refuses, stating that the last time she was admitted here it was managed conservatively with medication and time. I discussed the patient with Dr. Church. It his review of her CT, she has chronically dilated area proximal to the reanastomosis, but no further dilation of the small bowel proximal to it. He examined the patient and discussed plan of care with her. It was felt that she could be discharged. She will follow-up with her primary care provider, and her surgeon in [place] as needed. Additionally, should she develop vomiting tonight while he is percussion instrument repairer, she is to call the hospital op erator and get in contact with him for possible direct admission. Disposition is discharged home in stable condition. Lab Data Attestation: I reviewed the patient's lab results. Labs: Laboratory Results - last 24 hr 03/10/22 03/10/22 03/10/22 10:15 10:15 10:15 WBC 7.4 RBC 4.30 Hgb 11.9 L Hct 37.8 MCV 87.9 MCH 27.7 MCHC 31.5 L RDW Std Deviation 48.0 H RDW Coeff of Yovana 14.8 H Plt Count 222 MPV 10.8 Immature Gran % (Auto) 0.300 Neut % (Auto) 60.5 Lymph % (Auto) 29.3 [place] % (Auto) 5.7 Eos % (Auto) 3.5 Baso % (Auto) 0.7 Absolute Neuts (auto) 4.5 Absolute Lymphs (auto) 2.16 Nucleated RBC % 0 Sodium 145 Potassium 3.9 Chloride 109 H Carbon Dioxide 27.0 Anion Gap 9 BUN 16 Creatinine 1.12 H Estim Creat Clear Calc 54.13 Est GFR (MDRD) Af Amer 68 Est GFR (MDRD) Non-Af 57 L BUN/Creatinine Ratio 14.3 Glucose 118 H Calcium 8.4 L Total Bilirubin 0.40 AST 29 ALT 44 Alkaline Phosphatase 94 Total Protein 6.2 L Albumin 3.0 L Globulin 3.2 Albumin/Globulin Ratio 0.9 Serum , Qual NEGATIVE Urine Color Urine Clarity Urine pH Ur Specific [place] Urine Protein Urine Glucose (UA) Urine Ketones Urine Occult Blood Urine Nitrite Urine Bilirubin Urine Urobilinogen Ur Leukocyte Esterase Urine RBC Urine WBC Ur Squamous Epith Cells Calcium Oxalate Crystal Urine Bacteria Urine Mucus 03/10/22 10:58 WBC RBC Hgb Hct MCV MCH MCHC RDW Std Deviation RDW Coeff of Yovana Plt Count MPV Immature Gran % (Auto) Neut % (Auto) Lymph % (Auto) [place] % (Auto) Eos % (Auto) Baso % (Auto) Absolute Neuts (auto) Absolute Lymphs (auto) Nucleated RBC % Sodium Potassium Chloride Carbon Dioxide Anion Gap BUN Creatinine Estim Creat Clear Calc Est GFR (MDRD) Af Amer Est GFR (MDRD) Non-Af BUN/Creatinine Ratio Glucose Calcium Total Bilirubin AST ALT Alkaline Phosphatase Total Protein Albumin Globulin Albumin/Globulin Ratio Serum , Qual Urine Color Yellow Urine Clarity Clear Urine pH 5.0 Ur Specific [place] 1.020 Urine Protein Negative Urine Glucose (UA) Normal Urine Ketones Negative Urine Occult Blood Negative Urine Nitrite Negative Urine Bilirubin Negative Urine Urobilinogen Normal Ur Leukocyte Esterase 25 H Urine RBC 0 SEEN Urine WBC 0 SEEN Ur Squamous Epith Cells 0-5 SEEN Calcium Oxalate Crystal RARE Urine Bacteria 0 SEEN Urine Mucus 0 SEEN Radiography Diagnostic Testing: Clinical Impression(s) from Imaging Studies Abdomen/Pelvis CT 03/10/22 09:51 IMPRESSION: Focal dilatation of the distal small bowel in the left lower quadrant with equalization. This is at the level of the small bowel anastomosis. The distal small bowel past this area is decompressed. Persistent bibasilar atelectasis and/or early infiltrates. Electronically Signed: Kali Luque MD at 12:39 EST , Discharge Plan Triage Chief Complaint: Abd Pain ED Provider: Justen Moore Dx/Rx/DC Orders Clinical Impression: Abdominal pain, LLQ, Small bowel anastomotic dilation Instructions: ED Abdominal Pain Unkn Cause Fem Prescriptions: No Action Dulcolax (magnesium hydroxide) 1,200 mg Tablet,Chewable 1,200 mg PO QHS Primary Care Provider: Mesfin Ramos Referrals: Taco Church MD [Med Staff - Active Staff] - As soon as possible Mesfin Ramos PA [Primary Care Provider] - Activity Restrictions/Additional Instructions: If you develop vomiting tonight, call the hospital gang drill press operator to get a hold of Dr. Church as he is aware of your case and has seen you in the emergency department already today. Disposition Disposition: Home, Self Care
[2022-03-10 10:29] LABS: Absolute Lymphocyte Count 2.16 X10^3/uL (0.83-4.51); Absolute Neutrophil Count 4.5 X10^3/uL (2.0-7.7); Basophil# 0.05 X10^3/uL; Basophil% 0.7 % (0-1); Eosinophil# 0.26 X10^3/uL; Eosinophils% 3.5 % (0-5); Hematocrit 37.8 % (37-47); Hemoglobin 11.9 g/dL (12.0-15.0); Lymphocyte # 2.16 X10^3/ul (0.83-4.51); Lymphocyte % 29.3 % (19-41); Mean Corp Hgb Conc 31.5 g/dL (32-36); Mean Corpuscular Hgb 27.7 pg (27.0-32.0); Mean Corpuscular Volume 87.9 fL (81-99); Mean Platelet Vol. 10.8 fl (6.2-12.0); Monocyte# 0.42 X10^3/uL; Monocyte% 5.7 % (0-10); NRBC Flagged by Analyzer 0 % (0-5); Neutrophil # 4.45 X10^3/uL (2.7-7.7); Neutrophil % 60.5 % (47-70); Platelet Count 222 K/mm3 (150-450); RBC Distribution Width CV 14.8 % (11.6-14.6); White Blood Count 7.4 K/mm3 (4.4-11.0)
[2022-03-10 10:41] LABS: ALB/GLOB Ratio 0.9 RATIO (0.9-2.4); AST(SGOT) 29 U/L (15-37); Alanine Aminotransfer ALT/SGPT 44 U/L (13-56); Alkaline Phosphatase 94 U/L (45-117); Anion Gap 9 (5-15); BUN 16 mg/dL (7-18); BUN/Creat Ratio 14.3 RATIO (10-20); Calcium,Total 8.4 mg/dL (8.5-10.1); Chloride 109 mmol/L (98-107); Creatinine, Serum 1.12 mg/dL (0.55-1.02); EST Glomerular Filtration Rate 57 mL/min (>60); Est Glom Filt Rate - Afr Amer 68 mL/min (>60); Estimated Creatinine Clearance 54.13 ml/min; Globulin 3.2 g/dL (2.2-4.2); Glucose 118 mg/dL (74-106); Potassium 3.9 mmol/L (3.5-5.1); Protein, Total 6.2 g/dL (6.4-8.2); Sodium Level 145 mmol/L (136-145)
[2022-03-10 10:56] LABS: Internal QC Validated? YES +Cl - CLEAR BKGD; Pregnancy, Serum, hCG Quali. NEGATIVE Negative
[2022-03-10] MEDS: Ondansetron 4 MG/2 ML Vial IV (11:01)
[2022-03-10] MEDS: 0.9% Normal Saline 1,000 ML 1000 ML IV (11:01)
[2022-03-10] MEDS: Morphine 4 MG/ML Syringe IV ×2 (11:01→11:49)
[2022-03-10 11:14] LABS: Bacteria 0 SEEN /hpf (None Seen); Color, Urine Yellow (Yellow); Glucose, Dipstick Normal (Normal); Ketone-Dipstick Negative (Negative); Leukocyte Esterase-Dipstick 25 /ul (Negative); Mucous, Urine 0 SEEN /hpf (<or=2+); Nitrite-Dipstick Negative (Negative); Occult Blood-Urine Negative /ul (Negative); Protein-Dipstick Negative (Negative); Red Blood Cells-Urine 0 SEEN /hpf (0-5); Urine Bilirubin Dipstick Negative (Negative); Urine Clarity Clear (Clear); Urine Urobilinogen Normal (Normal); White Blood Cells 0 SEEN /hpf (0-5)
[2022-03-10 11:19] LABS: Squamous Epithelial Cells - UA 0-5 SEEN /hpf (5-10)
[2022-03-10 11:20] LABS: Calcium Oxalate Crystals Ur RARE /hpf (<or=2+)
--- NOTE | 2022-03-10 12:29 | ED.RN ---
AFTER SECOND DOSE OF PAIN MEDICATION, PT BP DROPS TO 53/40. DR AWARE. PT [place], FLUIDS OPEN.
--- NOTE | 2022-03-10 14:05 | ED.RN ---
PT REFUSED NG TUBE. STATES LAST TIME THEY JUST OBSERVED ME AND DID NOT DO AN NG.STATES I WANT TO WAIT AND TALK TO THE SURGEON. DR. HOLLAND AWARE
--- NOTE | 2022-03-10 14:44 | ED.RN ---
PT REPORTS TO THIS RN THAT SHE IS AWAITING FOR HER SISTER TO COME AND PICK HER UP. EDUCATED NOT TO DRIVE FOR 6 HOURS AFTER HAVING NARCOTIC MEDICATION. PT VERBALIZES UNDERSTANDING.
== END 2022-03-10 14:44 | disposition home or self-care (01) ==
PROVIDERS: Emergency Provider Emergency Medicine; PCP Physician Assistant; Visit Provider Emergency Medicine
DX: R10.32 Left lower quadrant pain (principal); G47.30 Sleep apnea, unspecified; F17.210 Nicotine dependence, cigarettes, uncomplicated
CPT/HCPCS: 96375; 74177; 84703; 96376; Q9967; 80053; 96374; 96361; 99283; 85025; 81001; J2405; J7030; A4216

== ENCOUNTER 2022-03-11 04:54 | Inpatient (IN) | payer MEDICAID, SELFPAY ==
[2022-03-11] VITALS (23 sets, daily range): BP systolic 86–133; BP diastolic 53–104; PULSE 56–94; RESP 11–20; TEMP 36.2–37.1; O2SAT 90–98; BMI 36.3; BMI 35.1
--- NOTE | 2022-03-11 05:03 | EDS_ITS ---
HPI HPI - GI History of Present Illness Chief Complaint: Abd Pain Informant: patient and EMS Abdominal Pain/Flank Pain Onset: Yesterday Context: Sudden Onset Timing: Waxes and wanes Quality: Aching Location: Diffuse (Both sides mid abdomen) Current Severity: Severe Maximum Severity: Severe Worsened by: Nothing Relieved by: Nothing Nausea/Vomiting/Emesis GI Symptom: Positive for Nausea and Vomiting Diarrhea/Melena/Hematochezia GI Symptom: Negative for Diarrhea, Melena or Hematochezia Narrative Narrative: Patient was seen here yesterday for the same symptoms, she states they are all worse. Abdominal pain, vomiting. No blood in her emesis. Had a CT scan that showed possible developing bowel obstruction at the level of a prior anastomosis, the patient feels like this is another bowel obstruction. She presents the day after she was seen at 5 AM so I haven't been able to call for follow-up yet although she was advised to call surgery for direct admission if her symptoms recurred. [facility] Medical History Bipolar disorder Bowel obstruction Former smoker Former tobacco use History of borderline diabetes mellitus History of multiple abdominal surgeries History of small bowel obstruction HLD (hyperlipidemia) Iron deficiency anemia Obesity Rheumatoid arthritis SBO (small bowel obstruction) Home Medications magnesium hydroxide 1,200 mg chewable tablet (Dulcolax (magnesium hydroxide)) 1,200 mg PO QHS STOOL 03/10/22 [History Last Taken 03/09/22] Allergy/AdvReac Type Severity Reaction Status Date / Time hydromorphone HCl Allergy Severe Anaphylaxis Verified 03/11/22 04:59 [From Dilaudid] aspirin [From Percodan] Allergy Intermediate Swelling Verified 03/11/22 04:59 oxycodone terephthalate Allergy Intermediate Swelling Verified 03/11/22 04:59 [From Percodan] amoxicillin Allergy Hives Verified 03/11/22 04:59 ampicillin Allergy Swelling Verified 03/11/22 04:59 azithromycin Allergy Other Verified 03/11/22 04:59 erythromycin base Allergy Hives Verified 03/11/22 04:59 fentanyl Allergy Anaphylaxis Verified 03/11/22 06:02 oxycodone HCl [From Percocet] Allergy Anaphylaxis Verified 03/11/22 04:59 propoxyphene napsylate Allergy Other Verified 03/11/22 04:59 [From Darvocet-N] Sulfa (Sulfonamide Allergy Other Verified 03/11/22 04:59 Antibiotics) tramadol Allergy Hives Verified 03/11/22 04:59 Family History Father Cancer Hx Leukemia. Diabetes CVA (cerebral vascular accident) Mother Cancer Surgical History H/O: hysterectomy History of appendectomy History of bowel resection S/P cholecystectomy S/P exploratory laparotomy Social History household members: family Smoking Status: Current every day smoker tobacco type: cigarettes alcohol intake: never substance use type: does not use ROS ROS ED Constitutional Constitutional ED: Denies chills or fever(s) Eyes Eyes: Denies change in vision or diplopia ENT ENT ED: Denies rhinorrhea or sore throat Cardiovascular Cardiovascular: Denies chest pain or palpitations Respiratory/Chest Respiratory/Chest: Denies cough or dyspnea Gastrointestinal Gastrointestinal: Reports abdominal pain, nausea and vomiting; Denies diarrhea Genitourinary Genitourinary ED: Denies dysuria or hematuria Musculoskeletal Musculoskeletal: Denies back pain or neck pain Integumentary Denies abscess or rash Neurologic Neurologic: Denies headache(s), paresthesias or weakness Psychiatric Psychiatric: Denies anxiety or suicidal thoughts EXAM Physical Exam Const Vital Signs: 03/11/22 04:55 Temperature 98.6 F Temperature Source Temporal Pulse Rate 94 Respiratory Rate 20 H Blood Pressure 112/63 Blood Pressure Mean 79 Pulse Ox 94 Oxygen Delivery Method Room Air Positive well nourished and well developed General Appearance ED: well developed and NAD HEENT Reports moist mucous membranes normocephalic and atraumatic Eyes PERRL and EOMs intact bilaterally Neck full ROM and supple Resp normal respiratory effort and clear to auscultation bilaterally Cardio regular rate, regular rhythm and no murmurs GI GI Narrative: Tender across mid and lower abdomen, guarding voluntarily. No rebound tenderness. Soft. Distended. Auscultation: hypoactive bowel sounds Palpation: soft Back/Spine no CVA tenderness General Back: other FROM Extremity normal to inspection General Extremety ED: Negative for edema, pulses abnormal or tenderness General Extremity: Negative for edema or pulses abnormal Neuro oriented x3, CN's II-XII intact bilaterally and no sensory deficits noted Sensorium / Orientation: awake and alert Motor Exam: strength 5/5 throughout Skin no rashes or lesions noted and no wounds MDM MDM MDM Narrative Medical decision making narrative: Reviewed the patient's documentation and CT from yesterday, it appears that Dr. Church had reviewed the CT and examined the patient, and many of her radiographic findings were chronic although she was having acute symptoms. She was discharged home, advised to call him for admission if she got worse, although she came to the emergency department instead. I discussed with him, he agrees with admitting her, and states that he will plan on doing a small bowel with follow-through when morning hours arrive, so to hold off on NG or other imaging and agrees with giving her IV fluids, Zofran, and analgesics. Looking at her medication reaction list, I ordered her fentanyl 50 mcg. Nursing administered this, verifying the dose, and pushed it slowly since her IV was relatively small. After it was in, she noticed that the patient suddenly was unresponsive and I was called to evaluate her along with charge nurse. She was acyanotic, unconscious, and pulseless with asystole on the monitor. We immediately began CPR, and bagging her. The tech that was performing CPR stopped after about 30 seconds in order to reposition, but the patient then had a pulse and spontaneous recovery of circulation with sinus rhythm. We supported her by bagging her, her blood pressure was good 133/74, and we gave her Narcan 0.4 mg IV as soon as it was available which was soon after return of spontaneous circulation. Within a minute or 2, the patient gradually woke up and was able to talk with us, saying that her abdomen was hurting if she moved, and she was having no chest discomfort. An EKG was obtained, it shows no acute injury. I suspect patient had cardiac arrest secondary to respiratory arrest, although nursing rechecked everything and it does not appear anything was done incorrectly, she was given a relatively low therapeutic dose of fentanyl that was finished less than 1 minute before she became apneic and arresting. I am sending a troponin, and ordering a 2-hour delta, she is not having any symptoms in her chest right now. She is placed on oxygen for persistent hypoxemia in the low-mid 80s, and does not usually require oxygen for anything. X-ray 1 view my interpretation shows some chronic changes in the bases but no pulmonary edema or pneumothorax from CPR. Initial troponin has returned at 14. 45 minutes later, the patient is doing well, she is on a 2 L nasal cannula, 96%. Discussed again with admitting physician as well as Dr. Oliveros with intensive care who agrees with admitting her to the unit for the day, surgery requesting that medicine be consulted as well. I will discuss with them. Lab Data Attestation: I reviewed the patient's lab results. Labs: Laboratory Results - last 24 hr 03/11/22 03/11/22 03/11/22 05:10 05:10 05:10 WBC 7.5 RBC 4.57 Hgb 12.4 Hct 40.3 MCV 88.2 MCH 27.1 MCHC 30.8 L RDW Std Deviation 47.8 H RDW Coeff of Yovana 14.7 H Plt Count 236 MPV 9.8 Immature Gran % (Auto) 0.700 Neut % (Auto) 76.1 H Lymph % (Auto) 16.6 L [place] % (Auto) 4.5 Eos % (Auto) 1.6 Baso % (Auto) 0.5 Absolute Neuts (auto) 5.7 Absolute Lymphs (auto) 1.25 Nucleated RBC % 0 Sodium 145 Potassium 3.9 Chloride 111 H Carbon Dioxide 29.0 Anion Gap 5 BUN 13 Creatinine 0.87 Estim Creat Clear Calc 69.68 Est GFR (MDRD) Af Amer 91 Est GFR (MDRD) Non-Af 75 BUN/Creatinine Ratio 14.9 Glucose 117 H Calcium 8.6 Total Bilirubin 0.30 AST 17 ALT 40 Alkaline Phosphatase 84 Troponin I High Sens 14 Total Protein 6.3 L Albumin 3.1 L Globulin 3.2 Albumin/Globulin Ratio 1.0 Rhythm Strip Rhythm Strip: Sinus Rhythm Rate: 85 Ectopy: None EKG Initial EKG: Attestation: I personally reviewed and interpreted this EKG as follows: Interpretation: Sinus Rhythm, No Acute Injury Pattern and AV Block (1st deg) Comments: Borderline left axis. Nonspecific interventricular conduction delay. Prior EKG tracings: not available for review Critical Care Time Critical Care Time: Yes Critical care time (excluding procedures): 30-74 minutes (35 min), Including time spent:, Discussing w/Patient &/or Family/Advanced Developer, Discussing w/Consultants, Arranging Admission or Transfer and Performing Direct Patient Care at Bedside Discharge Plan Dx/Rx/DC Orders Clinical Impression: Intractable lower abdominal pain, Vomiting, Cardiac arrest due to respiratory disorder Disposition Disposition: Acute Care Hospital [facility]
[2022-03-11 05:24] LABS: Absolute Lymphocyte Count 1.25 X10^3/uL (0.83-4.51); Absolute Neutrophil Count 5.7 X10^3/uL (2.0-7.7); Basophil# 0.04 X10^3/uL; Basophil% 0.5 % (0-1); Eosinophil# 0.12 X10^3/uL; Eosinophils% 1.6 % (0-5); Hematocrit 40.3 % (37-47); Hemoglobin 12.4 g/dL (12.0-15.0); Lymphocyte # 1.25 X10^3/ul (0.83-4.51); Lymphocyte % 16.6 % (19-41); Mean Corp Hgb Conc 30.8 g/dL (32-36); Mean Corpuscular Hgb 27.1 pg (27.0-32.0); Mean Corpuscular Volume 88.2 fL (81-99); Mean Platelet Vol. 9.8 fl (6.2-12.0); Monocyte# 0.34 X10^3/uL; Monocyte% 4.5 % (0-10); NRBC Flagged by Analyzer 0 % (0-5); Neutrophil # 5.74 X10^3/uL (2.7-7.7); Neutrophil % 76.1 % (47-70); Platelet Count 236 K/mm3 (150-450); RBC Distribution Width CV 14.7 % (11.6-14.6); RBC Distribution Width SD 47.8 fl (35.1-43.9); Red Blood Count 4.57 M/mm3 (4.2-5.4); White Blood Count 7.5 K/mm3 (4.4-11.0)
[2022-03-11] MEDS: Ondansetron 4 MG/2 ML Vial IV (05:27)
[2022-03-11] MEDS: fentaNYL 100 MCG/2 ML Ampul 50 MCG IV (05:29)
[2022-03-11] MEDS: 0.9% Normal Saline 1,000 ML 125 ML IV ×3 (05:31→17:39)
[2022-03-11 05:44] LABS: AST(SGOT) 17 U/L (15-37); Alanine Aminotransfer ALT/SGPT 40 U/L (13-56); Albumin, Serum 3.1 g/dL (3.2-5.0); Alkaline Phosphatase 84 U/L (45-117); Anion Gap 5 (5-15); BUN 13 mg/dL (7-18); BUN/Creat Ratio 14.9 RATIO (10-20); Calcium,Total 8.6 mg/dL (8.5-10.1); Chloride 111 mmol/L (98-107); Creatinine, Serum 0.87 mg/dL (0.55-1.02); EST Glomerular Filtration Rate 75 mL/min (>60); Est Glom Filt Rate - Afr Amer 91 mL/min (>60); Estimated Creatinine Clearance 69.68 ml/min; Globulin 3.2 g/dL (2.2-4.2); Glucose 117 mg/dL (74-106); Potassium 3.9 mmol/L (3.5-5.1); Protein, Total 6.3 g/dL (6.4-8.2); Sodium Level 145 mmol/L (136-145)
[2022-03-11] MEDS: Naloxone 0.4 MG/ML Syringe IV ×2 (05:45→06:18)
--- NOTE | 2022-03-11 06:03 | ED.RN ---
0529: FENTANYL 50 MCG IV GIVEN PER ORDER. AT 0531 PT NOTED TO BE UNRESPONSIVE. BAGGING DONE BY CHARGE NURSE AND DR QUIROGA CALLED TO BEDSIDE. NARCAN .25 MG IV GIVEN. PT BEGAN TO AROUSE. PLACED ON 2L N/C AND MAINTAINING SATURATIONS. PT IS DROGGY BUT AROUSABLE WITH VS WNL. WILL CONTINUE TO MONITOR. EKG BEING DONE. FENTANYL ADDED TO ALLERGY LIST
--- NOTE | 2022-03-11 06:12 | RAD_ITS ---
EXAM: XR CHEST, 1 VIEW CLINICAL INDICATION: sob sob TECHNIQUE: Frontal view of the chest. This report was created using [employer] report generation technology. COMPARISON: Chest x-ray 12/15/2021 CT scan abdomen and pelvis 03/10/2022 FINDINGS: LUNGS AND PLEURAL SPACES: There are areas of mild atelectasis in the lung bases bilaterally. There are no demonstrated acute pulmonary infiltrates. No pneumothorax. No effusion. HEART: Unremarkable. Cardiac silhouette not enlarged. MEDIASTINUM: Central airways and mediastinal contour are unremarkable. BONES/JOINTS: Unremarkable. SOFT TISSUES: Unremarkable. RAD/Chest 1 View (Portable) IMPRESSION: Redemonstration of bilateral basilar atelectasis. No evidence for acute cardiopulmonary pathology. Electronically Signed: Mono Hicks MD at 7:30 EST Reading Location ID and State: [facility] / [place] , Service support ,
[2022-03-11 06:18] LABS: Troponin-I HS 14 pg/mL (3.0-54.0)
--- NOTE | 2022-03-11 06:43 | NURSING ---
316 obs tiffany klineo
--- NOTE | 2022-03-11 06:43 | NURSING ---
[facility] intractable abd pain, vomiting, cardiac arrest due to resp arrest
--- NOTE | 2022-03-11 07:50 | CON.PCM.HO_ITS ---
Assessment & Plan Assessment/Plan (1) Small bowel anastomotic dilation: PLAN: Plan The patient is a 41 y/o F admitted with abdominal pain, with CT abdomen finding of anastomotic dilatation. #1.? Acute abdominal pain with a small bowel anastomotic dilatation: Patient is being admitted in ICU for respiratory and cardiac arrest in ED. Small bowel follow-through ordered by the surgeon. IV fluid. Pain control. NPO. Patient was last admitted in last week of October 2021 for small bowel obstruction. 2. Hypoxemia with respiratory arrest followed by cardiac arrest after IV fentanyl: Patient had cardiopulmonary resuscitation for respiratory followed by cardiac arrest to ED after 50 mcg of IV fentanyl. Patient was successfully resuscitation with ROSC. 3. Chronic anemia/iron deficiency anemia: Patient hemoglobin 12.4 is on baseline. #3.? History prediabetes: Glucose 117 BMP. On 11/09, Hemoglobin A1c 5.5%. #4.? Bipolar disorder:?Oral medications on hold as patient is NPO. #5. Obesity grade 1: Weight loss and lifestyle changes encouraged. #7.? DVT prophylaxis, moderate risk: SCDs, heparin 4000 units subcutaneous twice daily Laboratory Results 03/11/22 05:10: WBC 7.5, RBC 4.57, Hgb 12.4, Hct 40.3, MCV 88.2, MCH 27.1, MCHC 30.8 L, RDW Std Deviation 47.8 H, RDW Coeff of Yovana 14.7 H, Plt Count 236, MPV 9.8, Immature Gran % (Auto) 0.700, Neut % (Auto) 76.1 H, Lymph % (Auto) 16.6 L, [place] % (Auto) 4.5, Eos % (Auto) 1.6, Baso % (Auto) 0.5, Absolute Neuts (auto) 5.7, Absolute Lymphs (auto) 1.25, Nucleated RBC % 0 03/11/22 05:10: Sodium 145, Potassium 3.9, Chloride 111 H, Carbon Dioxide 29.0, Anion Gap 5, BUN 13, Creatinine 0.87, Estim Creat Clear Calc 69.68, Est GFR (MDRD) Af Amer 91, Est GFR (MDRD) Non-Af 75, BUN/Creatinine Ratio 14.9, Glucose 117 H, Calcium 8.6, Total Bilirubin 0.30, AST 17, ALT 40, Alkaline Phosphatase 84, Total Protein 6.3 L, Albumin 3.1 L, Globulin 3.2, Albumin/Globulin Ratio 1.0 03/11/22 05:10: Troponin I High Sens 14 03/11/22 07:23: Troponin I High Sens 15 HPI Consult Data Date of Consult: 03/11/22 HPI Narrative Reason for Consultation: Transient respiratory arrest after IV fentanyl in ED. HPI Narrative: PETE SMITH, is a 41 F who came to ED for abdominal pain that is started a day before admission. She was seen and evaluated in ED yesterday. Yesterday she she came to ED for severe abdominal pain and had CT abdomen and pelvis. CT abdomen pelvis showed dilatation proximal to anastomosis of her small bowel in left lower quadrant with collapse of small bowel distal to anastomosis. Patient with symptoms of nausea and severe abdominal pain. Surgeon saw in the ER and felt it is chronic dilatation and was sent home. Patient return early in the morning with increasing abdominal pain. She was given fentanyl 50 mcg as she has allergy to most of the opioids and subsequently she had respiratory arrest followed by cardiac arrest. As per ED physician documentation CPR was immediately started with BLS and ACLS protocol. CPR started for 30 seconds and patient had ROSC. Subsequent EKG does not show acute ST-T changes or signs of myocardial injury. She is admitted in ICU for further monitoring. Yesterday she had nausea and vomiting. Today in the ICU she is having dry heaving and asking for ice and chips. she has a history of chronic bowel obstruction and states she had 5 times surgery in the past. [facility] Medical History Bipolar disorder Bowel obstruction Chronic pain Former smoker Former tobacco use History of borderline diabetes mellitus History of multiple abdominal surgeries History of small bowel obstruction HLD (hyperlipidemia) Iron deficiency anemia Migraines Obesity Rheumatoid arthritis SBO (small bowel obstruction) Sleep apnea Home Medications magnesium hydroxide 1,200 mg chewable tablet (Dulcolax (magnesium hydroxide)) 1,200 mg PO QHS STOOL 03/10/22 [History Last Taken 03/09/22] Allergy/AdvReac Type Severity Reaction Status Date / Time hydromorphone HCl Allergy Severe Anaphylaxis Verified 03/11/22 04:59 [From Dilaudid] aspirin [From Percodan] Allergy Intermediate Swelling Verified 03/11/22 04:59 oxycodone terephthalate Allergy Intermediate Swelling Verified 03/11/22 04:59 [From Percodan] amoxicillin Allergy Hives Verified 03/11/22 04:59 ampicillin Allergy Swelling Verified 03/11/22 04:59 azithromycin Allergy Other Verified 03/11/22 04:59 erythromycin base Allergy Hives Verified 03/11/22 04:59 fentanyl Allergy Anaphylaxis Verified 03/11/22 06:02 oxycodone HCl [From Percocet] Allergy Anaphylaxis Verified 03/11/22 04:59 propoxyphene napsylate Allergy Other Verified 03/11/22 04:59 [From Darvocet-N] Sulfa (Sulfonamide Allergy Other Verified 03/11/22 04:59 Antibiotics) tramadol Allergy Hives Verified 03/11/22 04:59 Family History Father Cancer Hx Leukemia. Diabetes CVA (cerebral vascular accident) Mother Cancer Surgical History H/O: hysterectomy History of appendectomy History of bowel resection History of cholecystectomy S/P cholecystectomy S/P exploratory laparotomy Social History household members: family Smoking Status: Former smoker alcohol intake: never substance use type: does not use Physical Exam Narrative Physical exam General: Initially sleeping but woke up on verbal command. Alert, Oriented x3, Cooperative HEENT: Atraumatic, PERRLA, EOMI, Normocephalic Oral: Oral mucosa dry. No Gingival or Mucosal Lesions/ Ulcerations Neck: Supple, No JVD, Negative Carotid Bruits Lungs: Air entry diminished in bilateral lung bases. No crepitation/rhonchi Cardiovascular: Regular rate, Regular Rhythm, Normal S1, Normal S2, No murmurs Abdomen: Hyperacute bowel sounds. Tenderness present in both lower quadrants. Midline chronic surgical scar. No acute abdominal dilatation noticed : Has not voided urine yet. No [place] catheter. No renal angle tenderness. No suprapubic tenderness. Extremities: No edema, Capillary Refill Less than 3 Seconds Skin: No rashes, No breakdown Musculoskeletal: No Tenderness to Palpation of Joints or Extremities Neurological: Cranial nerves II-XII grossly intact, DTR 2+/4. Psych/Mental Status: Flat affect. Lab / Micro Data Result Diagrams: 03/11/22 05:10 03/11/22 05:10 Labs: Laboratory Results - last 24 hr 03/11/22 05:10: WBC 7.5, RBC 4.57, Hgb 12.4, Hct 40.3, MCV 88.2, MCH 27.1, MCHC 30.8 L, RDW Std Deviation 47.8 H, RDW Coeff of Yovana 14.7 H, Plt Count 236, MPV 9.8, Immature Gran % (Auto) 0.700, Neut % (Auto) 76.1 H, Lymph % (Auto) 16.6 L, [place] % (Auto) 4.5, Eos % (Auto) 1.6, Baso % (Auto) 0.5, Absolute Neuts (auto) 5.7, Absolute Lymphs (auto) 1.25, Nucleated RBC % 0 03/11/22 05:10: Sodium 145, Potassium 3.9, Chloride 111 H, Carbon Dioxide 29.0, Anion Gap 5, BUN 13, Creatinine 0.87, Estim Creat Clear Calc 69.68, Est GFR (MDRD) Af Amer 91, Est GFR (MDRD) Non-Af 75, BUN/Creatinine Ratio 14.9, Glucose 117 H, Calcium 8.6, Total Bilirubin 0.30, AST 17, ALT 40, Alkaline Phosphatase 84, Total Protein 6.3 L, Albumin 3.1 L, Globulin 3.2, Albumin/Globulin Ratio 1.0 03/11/22 05:10: Troponin I High Sens 14 Rhythm Strip Rhythm Strip: Sinus Rhythm Rate: 85 Ectopy: None Charges/Coding Visit Charges Office Visits / Consults: [id number] IP Consult L4
--- NOTE | 2022-03-11 07:51 | PCM.HP.STD ---
HPI - General General Date of Admission: 03/11/22 HPI Narrative PETE SMITH, is a 41 F who presents with left lower quadrant pain. Patient was here yesterday afternoon with left lower quadrant pain. At that time I reviewed the patient's CT scan and the only area that appeared dilated with the anastomosis. She was discharged home with instructions to call the hospital and have me paged so I could direct admit her if anything get worse but instead she came back to the emergency room. When back in the emergency room the white count still appeared normal but she was still having left lower quadrant pain which did not remit. They gave her a dose of fentanyl which sent her into an arrest and CPR was performed and she had spontaneous return of circulation. At the current time she is still complaining of left lower quadrant pain with no nausea or vomiting. She did report that she vomited yesterday. [facility] Medical History Bipolar disorder Bowel obstruction Former smoker Former tobacco use History of borderline diabetes mellitus History of multiple abdominal surgeries History of small bowel obstruction HLD (hyperlipidemia) Iron deficiency anemia Obesity Rheumatoid arthritis SBO (small bowel obstruction) Home Medications magnesium hydroxide 1,200 mg chewable tablet (Dulcolax (magnesium hydroxide)) 1,200 mg PO QHS STOOL 03/10/22 [History Last Taken 03/09/22] Allergy/AdvReac Type Severity Reaction Status Date / Time hydromorphone HCl Allergy Severe Anaphylaxis Verified 03/11/22 04:59 [From Dilaudid] aspirin [From Percodan] Allergy Intermediate Swelling Verified 03/11/22 04:59 oxycodone terephthalate Allergy Intermediate Swelling Verified 03/11/22 04:59 [From Percodan] amoxicillin Allergy Hives Verified 03/11/22 04:59 ampicillin Allergy Swelling Verified 03/11/22 04:59 azithromycin Allergy Other Verified 03/11/22 04:59 erythromycin base Allergy Hives Verified 03/11/22 04:59 fentanyl Allergy Anaphylaxis Verified 03/11/22 06:02 oxycodone HCl [From Percocet] Allergy Anaphylaxis Verified 03/11/22 04:59 propoxyphene napsylate Allergy Other Verified 03/11/22 04:59 [From Darvocet-N] Sulfa (Sulfonamide Allergy Other Verified 03/11/22 04:59 Antibiotics) tramadol Allergy Hives Verified 03/11/22 04:59 Family History Father Cancer Hx Leukemia. Diabetes CVA (cerebral vascular accident) Mother Cancer Surgical History H/O: hysterectomy History of appendectomy History of bowel resection S/P cholecystectomy S/P exploratory laparotomy Social History household members: family Smoking Status: Current every day smoker tobacco type: cigarettes alcohol intake: never substance use type: does not use ROS Constitutional Constitutional: Denies anorexia, chills, fatigue or fever(s) Eyes Eyes: Denies blurry vision ENT HEENT: Denies abnormal hearing Cardiovascular Cardiovascular: Denies chest pain Respiratory/Chest Respiratory/Chest: Denies cough or dyspnea Gastrointestinal Gastrointestinal: Reports abdominal pain, nausea and vomiting Genitourinary Genitourinary: Denies change in urinary stream Musculoskeletal Musculoskeletal: Denies abnormal gait Integumentary Integumentary: Denies jaundice Neurologic Neurologic: Denies dizziness Endocrine Endocrinology: Denies flushing Vital Signs Vital Signs Vital Signs: 03/11/22 04:55 03/11/22 05:39 03/11/22 05:46 Temperature 98.6 F 97.7 F L Temperature Source Temporal Temporal Pulse Rate 94 84 84 Respiratory Rate 20 H 19 H 12 Blood Pressure 112/63 133/74 H 116/67 Blood Pressure Mean 79 93 83 Pulse Ox 94 94 96 Oxygen Delivery Method Room Air Room Air Nasal Cannula Oxygen Flow Rate (L/min) 2 Weight Weight: 205 lb 0.478 oz Body Mass Index (BMI) 36.3 Physical Exam Const no apparent distress Resp normal respiratory effort Cardio regular rate and regular rhythm GI soft to palpation Palpation: tender LLQ Results Lab / Micro Data Result Diagrams: 03/11/22 05:10 03/11/22 05:10 Labs: Laboratory Results - last 24 hr 03/11/22 05:10: WBC 7.5, RBC 4.57, Hgb 12.4, Hct 40.3, MCV 88.2, MCH 27.1, MCHC 30.8 L, RDW Std Deviation 47.8 H, RDW Coeff of Yovana 14.7 H, Plt Count 236, MPV 9.8, Immature Gran % (Auto) 0.700, Neut % (Auto) 76.1 H, Lymph % (Auto) 16.6 L, [place] % (Auto) 4.5, Eos % (Auto) 1.6, Baso % (Auto) 0.5, Absolute Neuts (auto) 5.7, Absolute Lymphs (auto) 1.25, Nucleated RBC % 0 03/11/22 05:10: Sodium 145, Potassium 3.9, Chloride 111 H, Carbon Dioxide 29.0, Anion Gap 5, BUN 13, Creatinine 0.87, Estim Creat Clear Calc 69.68, Est GFR (MDRD) Af Amer 91, Est GFR (MDRD) Non-Af 75, BUN/Creatinine Ratio 14.9, Glucose 117 H, Calcium 8.6, Total Bilirubin 0.30, AST 17, ALT 40, Alkaline Phosphatase 84, Total Protein 6.3 L, Albumin 3.1 L, Globulin 3.2, Albumin/Globulin Ratio 1.0 03/11/22 05:10: Troponin I High Sens 14 Rhythm Strip Rhythm Strip: Sinus Rhythm Rate: 85 Ectopy: None Assessment & Plan Assessment/Plan (1) Abdominal pain, LLQ: (2) Small bowel anastomotic dilation: (3) Cardiac arrest due to respiratory disorder: PLAN: Plan The patient came back to the emergency room after her left lower quadrant pain did not resolve. I will admit her and perform a small bowel follow-through. The patient had a CODE BLUE called after she had respiratory arrest after fentanyl dose. The patient had spontaneous return of vital signs and her first troponin was negative. She will be admitted to the ICU for observation for the first 24 hours. I will also consult medicine for a post arrest work-up. I will keep her n.p.o. and started on IV fluids, but will not order narcotics. Taco Church MD Pager: [facility] [address] [place] [address], [address] [place] [address] Office:
[2022-03-11 07:53] LABS: Troponin-I HS 15 pg/mL (3.0-54.0)
--- NOTE | 2022-03-11 07:56 | NURSING ---
ICU 3
--- NOTE | 2022-03-11 09:40 | CON.PCM.CC_ITS ---
Assessment & Plan Assessment/Plan (1) Small bowel anastomotic dilation: PLAN: Plan RECOMMENDATIONS: 1. Continue gentle IV fluid resuscitation. 2. Tentative plans for small bowel series. 3. Avoid opiates. 4. Wean supplemental oxygen to maintain saturations at or above 90%. 5. Encourage incentive spirometer use and mobilize patient as tolerated. IMPRESSIONS: 1. Hypoxemia The patient experienced a respiratory arrest after being administered IV fentanyl. With reversal, the patient improved clinically with residual bibasilar atelectasis noted on chest imaging. I would recommend that we continue to wean her supplemental oxygen to maintain saturations at or above 90%. Encourage incentive spirometer use and mobilize patient as tolerated. I would be very cautious in the future with the use of IV opiates in this particul ar patient. If the patient does well over the course of the day, she can be transferred out of the intensive care unit. 2. Small bowel anastomotic dilation General surgery is following with conservative measures in place including supplemental IV fluids and tentative plans for small bowel series today. This note was generated with [employer] dictation software. It may contain incorrect words, spelling, and punctuation that were not noted in checking the note before signing. HPI Consult Data Date of Consult: 03/12/22 HPI Narrative Reason for Consultation: Hypoxia HPI Narrative: The patient is a 41-year-old female, with a history as outlined below, who presented to the emergency department via EMS on March 11 with abdominal pain, nausea and vomiting. The patient has a history of anemia, bipolar disorder, obesity and previous tobacco dependency. The patient was last hospitalized at the end of October with a partial small bowel obstruction which was managed conservatively along with acute combined respiratory failure, which was felt to be secondary to opiate induced respiratory depression. On presentation to the emergency department, the patient was noted to be afebrile hemodynamically stable. She was maintaining appropriate oxygen saturations on room air. Laboratory evaluation revealed no evidence of a leukocytosis. Chemistry profile was unrevealing. Urine test was negative. Urine analysis was unremarkable. A CT abdomen/pelvis was completed on March 10 which revealed dilation of the distal small bowel along with bibasilar atelectasis. While in the emergency department, the patient was administered 50 mcg of IV fentanyl for pain control. Shortly after receiving the medication, the patient became unresponsive and CPR was initiated. The patient was noted to be pulseless with asystole on the monitor. CPR was initiated for approximately 30 seconds, after which time, the patient regained a spontaneous pulse. The patient was administered Narcan with improvement in her mentation. The patient was placed on 2 L/min of supplemental oxygen. Follow-up chest x-ray demonstrated persistent bibasilar atelectasis. In light of the aforementioned, the decision was made to admit the patient to the medical intensive care unit for observation. General surgery has already been consulted and is following the patient. At the time of my evaluation of the patient, she denied any abdominal pain, nausea or vomiting. She did report back pain, which is apparently a chronic condition for her. [facility] Medical History Bipolar disorder Bowel obstruction Chronic pain Former smoker Former tobacco use History of borderline diabetes mellitus History of multiple abdominal surgeries History of small bowel obstruction HLD (hyperlipidemia) Iron deficiency anemia Migraines Obesity Rheumatoid arthritis SBO (small bowel obstruction) Sleep apnea Home Medications magnesium hydroxide 1,200 mg chewable tablet (Dulcolax (magnesium hydroxide)) 1,200 mg PO QHS STOOL 03/10/22 [History Last Taken 03/09/22] Allergy/AdvReac Type Severity Reaction Status Date / Time hydromorphone HCl Allergy Severe Anaphylaxis Verified 03/11/22 04:59 [From Dilaudid] aspirin [From Percodan] Allergy Intermediate Swelling Verified 03/11/22 04:59 oxycodone terephthalate Allergy Intermediate Swelling Verified 03/11/22 04:59 [From Percodan] amoxicillin Allergy Hives Verified 03/11/22 04:59 ampicillin Allergy Swelling Verified 03/11/22 04:59 azithromycin Allergy Other Verified 03/11/22 04:59 erythromycin base Allergy Hives Verified 03/11/22 04:59 fentanyl Allergy Anaphylaxis Verified 03/11/22 06:02 oxycodone HCl [From Percocet] Allergy Anaphylaxis Verified 03/11/22 04:59 propoxyphene napsylate Allergy Other Verified 03/11/22 04:59 [From Darvocet-N] Sulfa (Sulfonamide Allergy Other Verified 03/11/22 04:59 Antibiotics) tramadol Allergy Hives Verified 03/11/22 04:59 Family History Father Cancer Hx Leukemia. Diabetes CVA (cerebral vascular accident) Mother Cancer Surgical History H/O: hysterectomy History of appendectomy History of bowel resection History of cholecystectomy S/P cholecystectomy S/P exploratory laparotomy Social History household members: family Smoking Status: Former smoker alcohol intake: never substance use type: does not use ROS ROS Narrative 10 systems were reviewed with pertinent positives as noted in the HPI above. Constitutional Constitutional: Reports chills Physical Exam Const alert and no apparent distress Constitutional Narrative: Arouses to verbal stimulation, but still appears quite sleepy. General Appearance: cooperative HEENT normocephalic and head/scalp atraumatic Eyes PERRL, EOMs intact bilaterally and conjunctivae normal Neck supple General: trachea midline Chest inspection of chest normal Resp Resp Narrative: Poor inspiratory effort. Auscultation: diminished lung sounds Cardio regular rate and regular rhythm GI soft to palpation and non-tender Extremity no clubbing, cyanosis or edema Skin no rashes or lesions noted Neuro moves all extremities and no focal motor deficits Psych Mood & Affect: flat affect Lab / Micro Data Result Diagrams: 03/12/22 04:00 03/12/22 04:00 Labs: Laboratory Results - last 24 hr 03/11/22 05:10: WBC 7.5, RBC 4.57, Hgb 12.4, Hct 40.3, MCV 88.2, MCH 27.1, MCHC 30.8 L, RDW Std Deviation 47.8 H, RDW Coeff of Yovana 14.7 H, Plt Count 236, MPV 9.8, Immature Gran % (Auto) 0.700, Neut % (Auto) 76.1 H, Lymph % (Auto) 16.6 L, [place] % (Auto) 4.5, Eos % (Auto) 1.6, Baso % (Auto) 0.5, Absolute Neuts (auto) 5.7, Absolute Lymphs (auto) 1.25, Nucleated RBC % 0 03/11/22 05:10: Sodium 145, Potassium 3.9, Chloride 111 H, Carbon Dioxide 29.0, Anion Gap 5, BUN 13, Creatinine 0.87, Estim Creat Clear Calc 69.68, Est GFR (MDRD) Af Amer 91, Est GFR (MDRD) Non-Af 75, BUN/Creatinine Ratio 14.9, Glucose 117 H, Calcium 8.6, Total Bilirubin 0.30, AST 17, ALT 40, Alkaline Phosphatase 84, Total Protein 6.3 L, Albumin 3.1 L, Globulin 3.2, Albumin/Globulin Ratio 1.0 03/11/22 05:10: Troponin I High Sens 14 03/11/22 07:23: Troponin I High Sens 15 Rhythm Strip Rhythm Strip: Sinus Rhythm Rate: 85 Ectopy: None Radiology Impression Chest X-Ray 03/11/22 06:12 IMPRESSION: Redemonstration of bilateral basilar atelectasis. No evidence for acute cardiopulmonary pathology. Electronically Signed: Mono Hicks MD at 7:30 EST Reading Location ID and State: [facility] / [place] , Service support , Charges/Coding Visit Charges Inpatient E&M: 38786 Init Hosp L3
--- NOTE | 2022-03-11 10:00 | RAD_ITS ---
STUDY: GASTROGRAFIN SMALL BOWEL FOLLOW-THROUGH EXAMINATION. REASON FOR EXAM: Female, 41 years old. sbo vs psbo TECHNIQUE: The patient ingested 60 cc of GASTROGRAFIN. Small bowel follow-through examination was obtained. COMPARISON: None. FINDINGS: On the customer care specialist view, there is a 2 mm rounded calcification overlying the transverse process of the L4 vertebra on the right side. This may represent a mid right ureteral calculus. There is evidence of a small bowel resection in the right lower quadrant. There is dilatation of the small bowel loops in the left lower quadrant corresponded to the CT findings although there is no evidence of obstruction at this time. Contrast is seen within the right hemicolon within 25 minutes. RAD/Small Bowel Series Only IMPRESSION: No evidence of small bowel obstruction. Electronically Signed: Kali Luque MD at 11:20 EST ,
--- NOTE | 2022-03-11 11:50 | CASEMGMT ---
RN FARZANA Face to Face with patient for initial transition planning/care coordination assessment. RN CM introduced self and role at [facility]. Patient lying in bed, alert and oriented. Patient willing to participate in assessment and is able to answer all questions appropriately. Care providers, pharmacy, and demographics verified. Patient wishes to discharge home, denies need for home health at this time. Patient states she has no further needs or concerns at this time. CM to follow for discharge planning needs that may arise. PCP: Richard KINGSLEY Specialists: none Preferred Pharmacy: [facility] Insurance: [facility] Prescription Benefit: yes Living Will/HPOA: yes, sister Danyelle Langford LNOK: sister Living Arrangements: Patient lives sister in a 2 story home with bed and bath on first floor. No steps to enter the home. Patient states she is independent at home. Transportation: sister DME/HHC: Patient denies DME in the home. Patient has been to [facility] in the past. Disposition Plan: Patient to discharge home with family support and follow up plans in place. Donna RIZO, RN, CM
[2022-03-11] MEDS: Sodium Chloride 0.65% 1 SPRAY SPRAY.BTL NASAL (21:46)
[2022-03-11] MEDS: Acetaminophen 325 MG Tablet 650 MG PO (21:47)
[2022-03-11] MEDS: Heparin Injection (Vial) 5,000 UNIT/ML VIAL 5000 UNIT SC (21:48)
[2022-03-12] VITALS (13 sets, daily range): BP systolic 87–116; BP diastolic 54–71; PULSE 48–80; RESP 14–22; TEMP 36.6–36.8; O2SAT 84–98
[2022-03-12] MEDS: 0.9% Normal Saline 1,000 ML 125 ML IV (01:06)
[2022-03-12 04:03] LABS: Absolute Lymphocyte Count 1.65 X10^3/uL (0.83-4.51); Absolute Neutrophil Count 2.5 X10^3/uL (2.0-7.7); Basophil# 0.02 X10^3/uL; Basophil% 0.4 % (0-1); Eosinophil# 0.08 X10^3/uL; Eosinophils% 1.7 % (0-5); Hematocrit 34.1 % (37-47); Hemoglobin 9.9 g/dL (12.0-15.0); Lymphocyte # 1.65 X10^3/ul (0.83-4.51); Lymphocyte % 35.7 % (19-41); Mean Corpuscular Hgb 27.3 pg (27.0-32.0); Mean Corpuscular Volume 93.9 fL (81-99); Mean Platelet Vol. 10.5 fl (6.2-12.0); Monocyte# 0.34 X10^3/uL; Monocyte% 7.4 % (0-10); NRBC Flagged by Analyzer 0 % (0-5); Neutrophil # 2.51 X10^3/uL (2.7-7.7); Neutrophil % 54.4 % (47-70); Platelet Count 168 K/mm3 (150-450); RBC Distribution Width SD 51.4 fl (35.1-43.9); Red Blood Count 3.63 M/mm3 (4.2-5.4); White Blood Count 4.6 K/mm3 (4.4-11.0)
[2022-03-12 04:22] LABS: Anion Gap 2 (5-15); BUN 10 mg/dL (7-18); BUN/Creat Ratio 14.1 RATIO (10-20); Calcium,Total 7.5 mg/dL (8.5-10.1); Chloride 112 mmol/L (98-107); Creatinine, Serum 0.71 mg/dL (0.55-1.02); EST Glomerular Filtration Rate 96 mL/min (>60); Est Glom Filt Rate - Afr Amer 116 mL/min (>60); Estimated Creatinine Clearance 85.39 ml/min; Glucose 86 mg/dL (74-106); Potassium 3.8 mmol/L (3.5-5.1); Sodium Level 143 mmol/L (136-145)
--- NOTE | 2022-03-12 06:09 | PN.CC_ITS ---
Assessment & Plan Assessment/Plan (1) Small bowel anastomotic dilation: PLAN: Plan RECOMMENDATIONS: 1. Dietary advancement per general surgery. 2. Wean supplemental oxygen as tolerated. 3. Avoid opiate pain medications. 4. Encourage incentive spirometer use and mobilize patient as tolerated. 5. The patient is medically stable for transfer out of the intensive care unit. 6. Given the patient's lack of further ICU needs, will sign off. Please call with any additional questions. IMPRESSIONS: 1. Hypoxemia The patient experienced a respiratory arrest after being administered IV fentanyl. With reversal, the patient improved clinically with residual bibasilar atelectasis noted on chest imaging. I would recommend that we continue to wean her supplemental oxygen to maintain saturations at or above 90%. Encourage incentive spirometer use and mobilize patient as tolerated. I would be very cautious in the future with the use of IV opiates in this particular patient. 2. Small bowel anastomotic dilation General surgery is following with conservative measures in place including dietary advancement today as tolerated. This note was generated with zappit dictation software. It may contain incorrect words, spelling, and punctuation that were not noted in checking the note before signing. Subjective Subjective The patient was seen and examined at the bedside this morning. Events from the last 24 hours have been reviewed. The patient is currently afebrile, hemodynamically stable and maintaining appropriate oxygen saturations on 6 L/min via nasal cannula. The patient's oxygen requirement was increased overnight as she had periodic oxygen desaturations, potentially related to underlying untreated sleep apnea. However, when I evaluated the patient this morning, the nasal cannula was on the side of her face and she was saturating 93%. She did report a mild degree of abdominal discomfort, but denied any nausea or vomiting. Objective Data Objective Data The patient's most recent lab work, culture data and imaging studies have all been personally reviewed. Vital Signs: Vital Signs Temp Pulse Resp BP Pulse Ox O2 Del Method O2 Flow Rate 98.3 F 50 L 16 102/60 95 Nasal Cannula 6 03/12/22 04:00 03/12/22 06:00 03/12/22 06:00 03/12/22 06:00 03/12/22 06:00 03/12/22 06:00 03/12/22 06:00 Oxygen Flow Rate (L/min) 6 Oxygen Delivery Method Nasal Cannula Weight: 204 lb 5.896 oz Body Mass Index (BMI) 35.1 Intake & Output: Intake and Output for Last 24 Hours 03/10/22 03/11/22 03/12/22 23:59 23:59 23:59 Intake Total 1632.92 / 1632.92 931.25 / 931.25 Output Total 300 / 300 Balance 1332.92 / 1332.92 931.25 / 931.25 Lab / Micro Data Attestation: I reviewed the patient's lab results. Result Diagrams: 03/12/22 04:00 03/12/22 04:00 Labs: Laboratory Results - last 24 hr 03/11/22 05:10: Troponin I High Sens 14 03/11/22 07:23: Troponin I High Sens 15 03/12/22 04:00: WBC 4.6, RBC 3.63 L, Hgb 9.9 L, Hct 34.1 L, MCV 93.9 D, MCH 27.3, MCHC 29.0 L D, RDW Std Deviation 51.4 H, RDW Coeff of Yovana 15.0 H, Plt Count 168, MPV 10.5, Immature Gran % (Auto) 0.400, Neut % (Auto) 54.4, Lymph % (Auto) 35.7, [place] % (Auto) 7.4, Eos % (Auto) 1.7, Baso % (Auto) 0.4, Absolute Neuts (auto) 2.5, Absolute Lymphs (auto) 1.65, Nucleated RBC % 0 03/12/22 04:00: Sodium 143, Potassium 3.8, Chloride 112 H, Carbon Dioxide 29.0, Anion Gap 2 L, BUN 10, Creatinine 0.71, Estim Creat Clear Calc 85.39, Est GFR (MDRD) Af Amer 116, Est GFR (MDRD) Non-Af 96, BUN/Creatinine Ratio 14.1, Glucose 86, Calcium 7.5 L Radiography Diagnostic Testing: Radiology Impression Chest X-Ray 03/11/22 06:12 IMPRESSION: Redemonstration of bilateral basilar atelectasis. No evidence for acute cardiopulmonary pathology. Electronically Signed: Mono Hicks MD at 7:30 EST , Small Bowel X-Ray 03/11/22 10:00 IMPRESSION: No evidence of small bowel obstruction. Electronically Signed: Kali Luque MD at 11:20 EST , Rhythm Strip Rhythm Strip: Sinus Rhythm Rate: 85 Ectopy: None Physical Exam Const alert and no apparent distress General Appearance: cooperative Nutritional Appearance: obese HEENT normocephalic and head/scalp atraumatic Eyes PERRL, EOMs intact bilaterally and conjunctivae normal Neck supple General: trachea midline Chest inspection of chest normal Resp Resp Narrative: Poor inspiratory effort. Auscultation: diminished lung sounds Cardio regular rate and regular rhythm GI soft to palpation and non-tender Extremity no clubbing, cyanosis or edema Skin no rashes or lesions noted Neuro moves all extremities and no focal motor deficits Psych Mood & Affect: flat affect Charges/Coding Visit Charges Inpatient E&M: 70840 Subs Hosp L2
--- NOTE | 2022-03-12 06:10 | RAD_ITS ---
STUDY: X-RAY CHEST REASON FOR EXAM: Female, 41 years old. Hypoxia TECHNIQUE: Single AP portable view of the chest. COMPARISON: Comparison is made with prior examination dated 03/11/2022. FINDINGS: EKG electrodes are seen. Residual bibasilar pulmonary infiltrates and/or atelectasis with. There is been mild improvement. Blunting of both costophrenic angles. Normal size heart. Normal mediastinum and brennen. Normal visualized pulmonary arteries. Normal visualized aortic arch and descending thoracic aorta. Normal visualized thoracic spine. Normal visualized ribs, clavicles, and shoulders. There is no demonstrated abnormality of the visualized soft tissue structures of the upper abdomen. RAD/Chest 1 View (Portable) IMPRESSION: Mild residual bilateral basilar atelectasis and/or infiltrates. These have improved. Electronically Signed: Kali Luque MD at 10:59 EST ,
--- NOTE | 2022-03-12 08:29 | PN.HOSP_ITS ---
Subjective Subjective Follow-up for bowel obstruction, mild hypoxia. Objective Data Objective Data Vital Signs: Vital Signs Temp Pulse Resp BP Pulse Ox O2 Del Method O2 Flow Rate 98.3 F 48 L 16 102/60 95 Nasal Cannula 2 03/12/22 04:00 03/12/22 07:00 03/12/22 06:00 03/12/22 06:00 03/12/22 06:00 03/12/22 08:00 03/12/22 08:00 Oxygen Flow Rate (L/min) 2 Oxygen Delivery Method Nasal Cannula Weight: 204 lb 5.896 oz Body Mass Index (BMI) 35.1 Intake & Output: Intake and Output for Last 24 Hours 03/10/22 03/11/22 03/12/22 23:59 23:59 23:59 Intake Total 1632.92 / 1632.92 931.25 / 931.25 Output Total 300 / 300 0 / 0 Balance 1332.92 / 1332.92 931.25 / 931.25 Lab / Micro Data Result Diagrams: 03/12/22 04:00 03/12/22 04:00 Labs: Laboratory Results - last 24 hr 03/12/22 04:00: WBC 4.6, RBC 3.63 L, Hgb 9.9 L, Hct 34.1 L, MCV 93.9 D, MCH 27.3, MCHC 29.0 L D, RDW Std Deviation 51.4 H, RDW Coeff of Yovana 15.0 H, Plt Count 168, MPV 10.5, Immature Gran % (Auto) 0.400, Neut % (Auto) 54.4, Lymph % (Auto) 35.7, [place] % (Auto) 7.4, Eos % (Auto) 1.7, Baso % (Auto) 0.4, Absolute Neuts (auto) 2.5, Absolute Lymphs (auto) 1.65, Nucleated RBC % 0 03/12/22 04:00: Sodium 143, Potassium 3.8, Chloride 112 H, Carbon Dioxide 29.0, Anion Gap 2 L, BUN 10, Creatinine 0.71, Estim Creat Clear Calc 85.39, Est GFR (MDRD) Af Amer 116, Est GFR (MDRD) Non-Af 96, BUN/Creatinine Ratio 14.1, Glucose 86, Calcium 7.5 L Radiography Diagnostic Testing: Radiology Impression Chest X-Ray 03/11/22 06:12 IMPRESSION: Redemonstration of bilateral basilar atelectasis. No evidence for acute cardiopulmonary pathology. Electronically Signed: Mono Hicks MD at 7:30 EST , Small Bowel X-Ray 03/11/22 10:00 IMPRESSION: No evidence of small bowel obstruction. Electronically Signed: Kali Luque MD at 11:20 EST , Rhythm Strip Rhythm Strip: Sinus Rhythm Rate: 85 Ectopy: None Physical Exam Narrative Patient states she has always been hypoxic since childhood. She visited many physicians in pediatric age and adulthood but no cause was found. Her pulse ox is around 80s. Her blood pressure has been always low too. SBP is only high 80s 85 to 90 mmHg. She had 2 large bowel movements last night. Physical exam General: Alert, Oriented x3, Cooperative HEENT: Atraumatic, PERRLA, EOMI, Normocephalic Oral: Oral mucosa moist. No Gingival or Mucosal Lesions/ Ulcerations Neck: Supple, No JVD, Negative Carotid Bruits Lungs: Air entry diminished in left lung base. No crepitation/rhonchi Cardiovascular: Regular rate, Regular Rhythm, Normal S1, Normal S2, No murmurs Abdomen: BS present. Mild Tenderness present, slightly left more than right. Midline chronic surgical scar. No acute abdominal dilatation noticed : Voided 2-3 times. No renal angle tenderness. No suprapubic tenderness. Extremities: No edema, Capillary Refill Less than 3 Seconds Skin: No rashes, No breakdown Musculoskeletal: No Tenderness to Palpation of Joints or Extremities Neurological: Cranial nerves II-XII grossly intact, DTR 2+/4. Psych/Mental Status: Flat affect. Assessment & Plan Assessment/Plan (1) Small bowel anastomotic dilation: PLAN: Plan The patient is a 41 y/o F admitted with abdominal pain, with CT abdomen finding of anastomotic dilatation. #1.? Acute abdominal pain with a small bowel anastomotic dilatation: Patient is being admitted in ICU for respiratory and cardiac arrest in ED. Small bowel follow-through ordered by the surgeon. IV fluid. Pain control. NPO. Patient was last admitted in last week of October 2021 for small bowel obstruction. 03/12: Patient had 2 bowel movements and passing flatus last night. Abdominal pain is also improved. No nausea or vomiting.Started on diet by surgeon. Gastrografin small bowel follow-through exam in the area shows no evidence of small bowel obstruction. 2. Hypoxemia with respiratory arrest followed by cardiac arrest after IV fentanyl: Patient had cardiopulmonary resuscitation for respiratory followed by cardiac arrest to ED after 50 mcg of IV fentanyl. Patient was successfully resuscitation with ROSC. 03/12: No acute issues overnight. Patient was on 2 L of oxygen but always hypoxic and BP on lower side as per history. She worked 2 jobs but did not get short of breath on exertion 3. Chronic anemia/iron deficiency anemia: Patient hemoglobin 12.4 is on baseline. #3.? History prediabetes: Glucose 117 BMP. On 11/09, Hemoglobin A1c 5.5%. #4.? Bipolar disorder:?Oral medications on hold as patient is NPO. #5. Obesity grade 1: Weight loss and lifestyle changes encouraged. #7.? DVT prophylaxis, moderate risk: SCDs, heparin 4000 units subcutaneous twice daily Laboratory Results 03/12/22 04:00: WBC 4.6, RBC 3.63 L, Hgb 9.9 L, Hct 34.1 L, MCV 93.9 D, MCH 27.3, MCHC 29.0 L D, RDW Std Deviation 51.4 H, RDW Coeff of Yovana 15.0 H, Plt Count 168, MPV 10.5, Immature Gran % (Auto) 0.400, Neut % (Auto) 54.4, Lymph % (Auto) 35.7, [place] % (Auto) 7.4, Eos % (Auto) 1.7, Baso % (Auto) 0.4, Absolute Neuts (auto) 2.5, Absolute Lymphs (auto) 1.65, Nucleated RBC % 0 03/12/22 04:00: Sodium 143, Potassium 3.8, Chloride 112 H, Carbon Dioxide 29.0, Anion Gap 2 L, BUN 10, Creatinine 0.71, Estim Creat Clear Calc 85.39, Est GFR (MDRD) Af Amer 116, Est GFR (MDRD) Non-Af 96, BUN/Creatinine Ratio 14.1, Glucose 86, Calcium 7.5 L Clinical Impression(s) from Imaging Studies Chest X-Ray 03/11/22 06:12 IMPRESSION: Redemonstration of bilateral basilar atelectasis. No evidence for acute cardiopulmonary pathology. Small Bowel X-Ray 03/11/22 10:00 IMPRESSION: No evidence of small bowel obstruction. Charges/Coding Visit Charges Inpatient E&M: 83599 Subs Hosp L3
--- NOTE | 2022-03-12 08:34 | PN.SURG_ITS ---
Subjective Subjective The patient had a bowel movement and reports passing some flatus. She says she is feeling better than yesterday. No nausea or vomiting overnight. Objective Data Objective Data Vital Signs: Vital Signs Temp Pulse Resp BP Pulse Ox O2 Del Method O2 Flow Rate 98.3 F 48 L 16 102/60 95 Nasal Cannula 2 03/12/22 04:00 03/12/22 07:00 03/12/22 06:00 03/12/22 06:00 03/12/22 06:00 03/12/22 08:00 03/12/22 08:00 Oxygen Flow Rate (L/min) 2 Oxygen Delivery Method Nasal Cannula Weight: 204 lb 5.896 oz Body Mass Index (BMI) 35.1 Intake & Output: Intake and Output for Last 24 Hours 03/10/22 03/11/22 03/12/22 23:59 23:59 23:59 Intake Total 1632.92 / 1632.92 931.25 / 931.25 Output Total 300 / 300 0 / 0 Balance 1332.92 / 1332.92 931.25 / 931.25 Lab / Micro Data Result Diagrams: 03/12/22 04:00 03/12/22 04:00 Labs: Laboratory Results - last 24 hr 03/12/22 04:00: WBC 4.6, RBC 3.63 L, Hgb 9.9 L, Hct 34.1 L, MCV 93.9 D, MCH 27.3, MCHC 29.0 L D, RDW Std Deviation 51.4 H, RDW Coeff of Yovana 15.0 H, Plt Count 168, MPV 10.5, Immature Gran % (Auto) 0.400, Neut % (Auto) 54.4, Lymph % (Auto) 35.7, [place] % (Auto) 7.4, Eos % (Auto) 1.7, Baso % (Auto) 0.4, Absolute Neuts (auto) 2.5, Absolute Lymphs (auto) 1.65, Nucleated RBC % 0 03/12/22 04:00: Sodium 143, Potassium 3.8, Chloride 112 H, Carbon Dioxide 29.0, Anion Gap 2 L, BUN 10, Creatinine 0.71, Estim Creat Clear Calc 85.39, Est GFR (MDRD) Af Amer 116, Est GFR (MDRD) Non-Af 96, BUN/Creatinine Ratio 14.1, Glucose 86, Calcium 7.5 L Radiography Diagnostic Testing: Radiology Impression Chest X-Ray 03/11/22 06:12 IMPRESSION: Redemonstration of bilateral basilar atelectasis. No evidence for acute cardiopulmonary pathology. Electronically Signed: Mono Hicks MD at 7:30 EST , Small Bowel X-Ray 03/11/22 10:00 IMPRESSION: No evidence of small bowel obstruction. Electronically Signed: Kali Luque MD at 11:20 EST , Rhythm Strip Rhythm Strip: Sinus Rhythm Rate: 85 Ectopy: None Physical Exam Const oriented x3 Resp normal respiratory effort Cardio regular rate and regular rhythm GI soft to palpation Assessment & Plan Assessment/Plan (1) Small bowel anastomotic dilation: PLAN: The patient was admitted for this left lower quadrant pain. Small bowel follow-through yesterday revealed brisk passage of contrast to the colon with no delay. There is no sign of bowel obstruction on the small bowel follow-through. She is still having a little bit of left lower quadrant pain. I will advance her diet today and see how she does. I will transfer her out of the ICU. If she tolerates diet I will discharge her later today or tomorrow. Taco Church MD Pager: [facility] [address] [place] [address], [address] [place] [address] Office:
[2022-03-12] MEDS: FLU VACC QS2022-23(6MOS UP)/PF 60 MCG/0.5 ML SYRINGE IM (10:24)
[2022-03-12] MEDS: Heparin Injection (Vial) 5,000 UNIT/ML VIAL 5000 UNIT SC (10:25)
[2022-03-12] MEDS: Pantoprazole Sodium 40 MG Tablet PO (10:26)
--- NOTE | 2022-03-12 12:07 | CHAPLAIN ---
Type of Pastoral Visit _x__ Initial Visit ___ Follow-up Visit ___ On-call Visit ___ General Patient Visit ___ Spiritual Assessment ___ Family Conference ___ Bereavement ___ Rapid Response ___ Code Blue ___ Other (describe below) Pastoral Care Referral From _x__ Patient ___ Family ___ Nurse ___ Physician ___ Track Laying Equipment Operator ___ Buff Wheel Fabricator ___ Other (describe below) Sacrament/Intervention _x__ Active listening ___ Anointing ___ Oriental Orthodox ___ Bereavement ___ Communion ___ Nohemi exploration ___ _x__ Life review _x__ Prayer ___ Reconciliation ___ Sacrament of Sick ___ Supportive presence ___ Wedding ___ Other (describe below) Pastoral Comments patient is very talkative about her life, her work, her son with autism, and her desire to work for [employer] money; pt used to attend a [employer] and welcomes a prayer for support; otherwise pt evidences need to have someone to talk with
--- NOTE | 2022-03-12 14:27 | DS.PCM_ITS ---
Providers Date of Admission: 03/11/22 Primary Care Physician: TEETEE Escoto Consultations 03/11/22 08:42 Consult: Hospitalist Routine Consulting Provider: Angelo Talamantes Reason for Consult: post arrest work up EMERGENT Consult: No Notified: Yes Date Notified: 03/11/22 Time Notified: 08:11 Method of Notification: Verbal Consult: Physicist Astrophysics / Pulmonary Medicine Routine Consulting Provider: Murray Oliveros Reason for Consult: post arrest observation EMERGENT Consult: No Notified: Yes Date Notified: 03/11/22 Time Notified: 08:11 Method of Notification: Verbal Reason For Visit: SMALL BOWEL OBSTRUCTION Diagnosis Discharge Diagnosis (1) Small bowel anastomotic dilation: Status: Acute Code(s): K91.89 - Other postprocedural complications and disorders of digestive system Plan: The patient was admitted for this left lower quadrant pain. Small bowel follow- through yesterday revealed brisk passage of contrast to the colon with no delay. There is no sign of bowel obstruction on the small bowel follow-through. She is still having a little bit of left lower quadrant pain. I will advance her diet today and see how she does. I will transfer her out of the ICU. If she tolerates diet I will discharge her later today or tomorrow. Taco Church MD Pager: [facility] [address] [place] [address], [address] [place] [address] Office: Medications at Discharge Home Medications magnesium hydroxide 1,200 mg chewable tablet (Dulcolax (magnesium hydroxide)) 1,200 mg PO QHS STOOL 03/10/22 Hospital Course Summary of Care Provided Hospital Course: Patient had respiratory arrest in ED follow Fentanyl administration. Following that she was admitted to ICU for possible small bowel obstruction. A small bowel series demonstrated that contrast got to colon within 25 minutes. The following day she was started on a diet which she tolerated. She was worked up by ICU and hospitalist teams and no further workup on heart or lungs was requested. The patient should follow up with pulmonology for sleep apnea. Weight / BMI Weight Weight: 204 lb 5.896 oz Body Mass Index (BMI) 35.1 ABG / Lab / Microbiology Data Result Diagrams: 03/12/22 04:00 03/12/22 04:00 Laboratory: Laboratory Results - last 24 hr 03/12/22 04:00: WBC 4.6, RBC 3.63 L, Hgb 9.9 L, Hct 34.1 L, MCV 93.9 D, MCH 27.3, MCHC 29.0 L D, RDW Std Deviation 51.4 H, RDW Coeff of Yovana 15.0 H, Plt Count 168, MPV 10.5, Immature Gran % (Auto) 0.400, Neut % (Auto) 54.4, Lymph % (Auto) 35.7, [place] % (Auto) 7.4, Eos % (Auto) 1.7, Baso % (Auto) 0.4, Absolute Neuts (auto) 2.5, Absolute Lymphs (auto) 1.65, Nucleated RBC % 0 03/12/22 04:00: Sodium 143, Potassium 3.8, Chloride 112 H, Carbon Dioxide 29.0, Anion Gap 2 L, BUN 10, Creatinine 0.71, Estim Creat Clear Calc 85.39, Est GFR (MDRD) Af Amer 116, Est GFR (MDRD) Non-Af 96, BUN/Creatinine Ratio 14.1, Glucose 86, Calcium 7.5 L Radiography Diagnostic Testing: Radiology Impression Chest X-Ray 03/12/22 06:10 IMPRESSION: Mild residual bilateral basilar atelectasis and/or infiltrates. These have improved. Electronically Signed: Kali Luque MD at 10:59 EST Reading Location ID and State: [address] [place] [address] , Service support , D/C Instructions Discharge Diet: Light diet - advance as tolerated Discharge Activity: Return to Normal Activity Call your doctor if your incision/area has: Increased Pain/ Swelling Call your doctor if you observe: Inability to have a bowel movement and Uncontrolled pain Please Follow Up With: Murray Oliveros, When: Call pulmonology office to make follow up appt to discuss sleep apnea. [phone] Meaningful Use Info Meaningful Use Diagnoses (Choose all that apply): None applicable Discharge Plan Admission Admit Date/Time: 03/11/22 05:28 Attending Provider: Taco Church Primary Care Provider: Mesfin Ramos Consulting Providers: Angelo Talamantes ; Murray Oliveros Discharge Orders/Prescriptions Prescriptions: Continued Dulcolax (magnesium hydroxide) 1,200 mg Tablet,Chewable 1,200 mg PO QHS Referrals / Follow Up: Murray Oliveros DO [Med Staff - Active Staff] - In 1 Week (sleep apnea, call his office for appt) Mesfin Ramos, PA [Primary Care Provider] - Disposition Disposition (needs filled in before D/C Order can be placed): Home, Self Care
--- NOTE | 2022-03-12 14:47 | NURSING ---
Patient transferred from ICU. Checked vitals as patient is to be discharged. Patient was 89% on room air at rest. Patient refusing to have any further testing done and is refusing home oxygen. Stated her oxygen is always like this and they are always trying to send her home with oxygen.
== END 2022-03-12 15:08 | disposition home or self-care (01) | DRG 254 ==
LOC: ED 05:55 → ICU 08:04 → PCU 03-12 14:42
PROVIDERS: Admitting Provider Surgery; Emergency Provider Emergency Medicine; PCP Physician Assistant; Visit Provider Surgery
DX: K31.89 Other diseases of stomach and duodenum (principal); I46.8 Cardiac arrest due to other underlying condition; F31.9 Bipolar disorder, unspecified; M06.9 Rheumatoid arthritis, unspecified; E78.5 Hyperlipidemia, unspecified; D50.9 Iron deficiency anemia, unspecified; G47.30 Sleep apnea, unspecified; G89.29 Other chronic pain; E66.9 Obesity, unspecified; R73.03 Prediabetes; R09.02 Hypoxemia; Z23 Encounter for immunization; Z87.891 Personal history of nicotine dependence
CPT/HCPCS: 71045; 74177; 74250; 80048; 80053; 81001; 84484; 84703; 85025; 93005; 96361; 96374; 96375; 96376; 99283; 99285; J7030; Q9967; 90686; A4216; J2310; J2405

== ENCOUNTER 2022-05-04 16:35 | Emergency (ER) | payer MEDICAID, SELFPAY ==
[2022-05-04 16:36] VITALS: BP 114/73; PULSE 85; RESP 18; TEMP 36.1; O2SAT 97; BMI 35.0
--- NOTE | 2022-05-04 17:55 | EDS_ITS ---
HPI HPI - GI History of Present Illness Chief Complaint: Abd Pain Narrative Narrative: 41-year-old female presenting with left upper quadrant and left lower quadrant abdominal pain. She states its been here since today when she went home from work. She describes it as achy. She is not had vomiting. She has had diarrhea. She was told by her GI doctor that she is to continue stool softeners even though she has diarrhea. Patient does report that she has a significant history of small bowel obstructions for which she is not sure why she has had them. She has had to have 2 surgical repairs at [facility] and 1 surgical repair at [facility] [place]. She states that she has to be at a specialty facility given a special medication for sedation for surgery otherwise she will go into cardiac arrest. She also reports cardiac arrest to morphine, Dilaudid. Patient denies a fever. She does have urinary complaints today and states she has dysuria and urinary frequency. She denies history of kidney stones. [facility] Medical History Bipolar disorder Bowel obstruction Cardiac arrest due to respiratory disorder Chronic pain Former smoker Former tobacco use History of borderline diabetes mellitus History of multiple abdominal surgeries History of small bowel obstruction HLD (hyperlipidemia) Iron deficiency anemia Migraines Obesity Rheumatoid arthritis SBO (small bowel obstruction) Sleep apnea Home Medications magnesium hydroxide 1,200 mg chewable tablet (Dulcolax (magnesium hydroxide)) 1,200 mg PO QHS STOOL 03/10/22 [History Last Taken 03/09/22] Allergy/AdvReac Type Severity Reaction Status Date / Time hydromorphone HCl Allergy Severe Anaphylaxis Verified 05/04/22 16:36 [From Dilaudid] aspirin [From Percodan] Allergy Intermediate Swelling Verified 05/04/22 16:36 oxycodone terephthalate Allergy Intermediate Swelling Verified 05/04/22 16:36 [From Percodan] amoxicillin Allergy Hives Verified 05/04/22 16:36 ampicillin Allergy Swelling Verified 05/04/22 16:36 azithromycin Allergy Other Verified 05/04/22 16:36 erythromycin base Allergy Hives Verified 05/04/22 16:36 fentanyl Allergy Anaphylaxis Verified 05/04/22 16:36 oxycodone HCl [From Percocet] Allergy Anaphylaxis Verified 05/04/22 16:36 propoxyphene napsylate Allergy Other Verified 05/04/22 16:36 [From Darvocet-N] Sulfa (Sulfonamide Allergy Other Verified 05/04/22 16:36 Antibiotics) tramadol Allergy Hives Verified 05/04/22 16:36 Family History Father Cancer Hx Leukemia. Diabetes CVA (cerebral vascular accident) Mother Cancer Surgical History H/O: hysterectomy History of appendectomy History of bowel resection History of cholecystectomy S/P cholecystectomy S/P exploratory laparotomy Social History household members: family Smoking Status: Former smoker alcohol intake: never substance use type: does not use ROS ROS ED Constitutional Constitutional ED: Denies chills or fever(s) ENT ENT ED: Denies rhinorrhea or sore throat Cardiovascular Cardiovascular: Denies chest pain or palpitations Respiratory/Chest Respiratory/Chest: Denies cough or dyspnea Gastrointestinal Gastrointestinal: Reports abdominal pain and diarrhea; Denies nausea or vomiting Genitourinary Genitourinary ED: Denies dysuria Musculoskeletal Musculoskeletal: Denies arthralgias Integumentary Denies abscess or Abrasions Neurologic Neurologic: Denies headache(s) or paresthesias Psychiatric Psychiatric: Denies anxiety or depression EXAM Physical Exam Const Vital Signs: 05/04/22 16:36 Temperature 97 F L Temperature Source Temporal Pulse Rate 85 Respiratory Rate 18 Blood Pressure 114/73 Blood Pressure Mean 86 Pulse Ox 97 Oxygen Delivery Method Room Air Positive well nourished General Appearance ED: NAD HEENT Reports moist mucous membranes normocephalic Eyes PERRL and EOMs intact bilaterally Neck no lymphadenopathy Resp normal respiratory effort and clear to auscultation bilaterally Auscultation: Negative for rales, rhonchi or wheezes Cardio regular rate and regular rhythm GI Palpation: tender LLQ and LUQ Back/Spine no CVA tenderness Neuro CN's II-XII intact bilaterally Sensorium / Orientation: alert Psych mental status grossly normal and thought process normal Skin no wounds MDM MDM MDM Narrative Medical decision making narrative: Patient with left-sided abdominal pain in the left upper and lower quadrants. Differential diagnosis includes at this time but is not limited to kidney stone, ureteral stone, pyelonephritis, diverticulitis, constipation, diarrhea, small bowel obstruction, bowel perforation, colitis, ileus. Will obtain CBC to assess for white blood cell count, hemoglobin, platelets, differential. We will obtain a CMP to assess liver function, electrolytes, renal function, glucose and anion gap. Lipase to assess for pancreatitis. Urinalysis to assess for UTI. CT of the abdomen pelvis with IV contrast will be obtained. Patient told me that she is allergic to morphine, Dilaudid as these caused her to go into cardiac arrest. She opted for Toradol. CBC shows no leukocytosis. Her white blood cell count is actually 6.0. Hemoglobin stable at 12.4. Platelets normal 221. No left shift. Renal function and electrolytes unremarkable. Liver function enzymes are normal. Lipase normal. Urinalysis negative for infection or occult blood. I obtained a CT of the abdomen pelvis with IV contrast which does not show any acute findings. Patient counseled on negative work-up and recommended she follow-up with her GI doctor. She is to continue her stool softener as well. Return precautions were discussed. Impression: 1. Abdominal pain 2. History of bowel obstruction Lab Data Labs: Laboratory Results - last 24 hr 05/04/22 05/04/22 05/04/22 16:50 16:50 20:00 WBC 6.0 RBC 4.54 Hgb 12.4 Hct 40.0 MCV 88.1 MCH 27.3 MCHC 31.0 L RDW Std Deviation 45.9 H RDW Coeff of Yovana 14.4 Plt Count 221 MPV 10.4 Immature Gran % (Auto) 0.300 Neut % (Auto) 56.7 Lymph % (Auto) 32.8 [place] % (Auto) 7.0 Eos % (Auto) 2.7 Baso % (Auto) 0.5 Absolute Neuts (auto) 3.4 Absolute Lymphs (auto) 1.98 Nucleated RBC % 0 Sodium 145 Potassium 4.1 Chloride 116 H Carbon Dioxide 26.0 Anion Gap 3 L BUN 11 Creatinine 1.04 H Estim Creat Clear Calc 58.29 Est GFR (MDRD) Af Amer 75 Est GFR (MDRD) Non-Af 62 BUN/Creatinine Ratio 10.6 Glucose 85 Calcium 8.9 Total Bilirubin 0.20 AST 22 ALT 35 Alkaline Phosphatase 92 Total Protein 6.4 Albumin 3.1 L Globulin 3.3 Albumin/Globulin Ratio 0.9 Lipase 118 Urine Color Straw Urine Clarity Clear Urine pH 6.5 Ur Specific [place] 1.010 Urine Protein Negative Urine Glucose (UA) Normal Urine Ketones Negative Urine Occult Blood Negative Urine Nitrite Negative Urine Bilirubin Negative Urine Urobilinogen Normal Ur Leukocyte Esterase Negative Urine RBC 0 SEEN Urine WBC 0 SEEN Ur Squamous Epith Cells 0-5 SEEN Urine Bacteria 0 SEEN Urine Mucus 0 SEEN Urine Test Negative Radiography Diagnostic Testing: Clinical Impression(s) from Imaging Studies Abdomen/Pelvis CT 05/04/22 17:55 IMPRESSION: No acute abnormality or major interval change when compared to the prior study. Electronically Signed: Selvin Corrales DO at 18:42 EST Reading Location ID and State: [address] [place] [address] Tel [phone], Service support , Discharge Plan Triage Chief Complaint: Abd Pain Other Complaint: Complaint ED Provider: Alex Torres Dx/Rx/DC Orders Instructions: ED Abdominal Pain Unkn Cause Fem Prescriptions: No Action Dulcolax (magnesium hydroxide) 1,200 mg Tablet,Chewable 1,200 mg PO QHS Primary Care Provider: Mesfin Ramos Referrals: Mesfin Ramos, PA [Primary Care Provider] - Disposition Disposition: Home, Self Care
--- NOTE | 2022-05-04 17:55 | CT_ITS ---
INDICATION: Small bowel obstruction. EXAMINATION: CT ABDOMEN AND PELVIS WITH CONTRAST - CT Abdomen And Pelvis W/ Contrast Injection TECHNIQUE: Helically acquired images were obtained of the abdomen and pelvis following IV contrast. A radiation dose optimization technique was used for this scan. IV Contrast dosage and agent: 100 mL of Isovue-300 Oral contrast: None. COMPARISON: March 10, 2022. FINDINGS: LOWER CHEST: Minimal atelectatic changes at the lung bases. No cardiomegaly or pericardial effusion. LIVER: The liver is normal in size and contour. There is a tiny hypodensity in segment 4A of the liver (image 26 of series 2) to represent cysts. Liver is otherwise unremarkable. No focal solid mass. GALLBLADDER AND BILIARY TREE: No calcified gallstones. No gallbladder distension or wall edema. No intra- or extrahepatic biliary ductal dilation. PANCREAS: No focal cystic or solid mass. SPLEEN: Normal size without focal cystic or solid mass. ADRENAL GLANDS: No nodules. KIDNEYS AND URETERS: Normal renal size and position. There is mild right-sided pelviectasis and dilatation of the proximal ureter to the pelvic brim without filling defect. The pelvic ureter appears normal. Normal left ureter. PERITONEUM: No ascites or free air. No other fluid collection. BOWEL: Normal stomach. Normal proximal small bowel. Given seen is a dilated postsurgical segment of small bowel in the right lower quadrant with fecalized contents. Normal distal small bowel. Normal colon. The appendix is not visualized. LYMPH NODES: No enlarged mesenteric or retroperitoneal lymph nodes. VESSELS: The aorta is without aneurysm or dissection. Normal IVC. URINARY BLADDER: Normal. REPRODUCTIVE ORGANS: Status post hysterectomy. Unremarkable vaginal cuff. ABDOMINAL WALL: Midline surgical scar. The abdominal wall is otherwise unremarkable. BONES: No lytic or blastic abnormality. CT/Abdomen/Pelvis W IV Cont ONLY IMPRESSION: No acute abnormality or major interval change when compared to the prior study. Electronically Signed: Selvin Corrales DO at 18:42 EST Reading Location ID and State: [facility] / [place] Tel [phone], Service support ,
[2022-05-04 17:59] LABS: Absolute Lymphocyte Count 1.98 X10^3/uL (0.83-4.51); Absolute Neutrophil Count 3.4 X10^3/uL (2.0-7.7); Basophil# 0.03 X10^3/uL; Basophil% 0.5 % (0-1); Eosinophil# 0.16 X10^3/uL; Eosinophils% 2.7 % (0-5); Hemoglobin 12.4 g/dL (12.0-15.0); Lymphocyte # 1.98 X10^3/ul (0.83-4.51); Lymphocyte % 32.8 % (19-41); Mean Corpuscular Hgb 27.3 pg (27.0-32.0); Mean Corpuscular Volume 88.1 fL (81-99); Mean Platelet Vol. 10.4 fl (6.2-12.0); Monocyte# 0.42 X10^3/uL; NRBC Flagged by Analyzer 0 % (0-5); Neutrophil # 3.42 X10^3/uL (2.7-7.7); Neutrophil % 56.7 % (47-70); Platelet Count 221 K/mm3 (150-450); RBC Distribution Width CV 14.4 % (11.6-14.6); RBC Distribution Width SD 45.9 fl (35.1-43.9); Red Blood Count 4.54 M/mm3 (4.2-5.4)
[2022-05-04] MEDS: Ketorolac 15 MG/ML Vial IV (18:05)
[2022-05-04 18:17] LABS: ALB/GLOB Ratio 0.9 RATIO (0.9-2.4); AST(SGOT) 22 U/L (15-37); Alanine Aminotransfer ALT/SGPT 35 U/L (13-56); Albumin, Serum 3.1 g/dL (3.2-5.0); Alkaline Phosphatase 92 U/L (45-117); Anion Gap 3 (5-15); BUN 11 mg/dL (7-18); BUN/Creat Ratio 10.6 RATIO (10-20); Calcium,Total 8.9 mg/dL (8.5-10.1); Chloride 116 mmol/L (98-107); Creatinine, Serum 1.04 mg/dL (0.55-1.02); EST Glomerular Filtration Rate 62 mL/min (>60); Est Glom Filt Rate - Afr Amer 75 mL/min (>60); Estimated Creatinine Clearance 58.29 ml/min; Globulin 3.3 g/dL (2.2-4.2); Glucose 85 mg/dL (74-106); Lipase 118 U/L (73-393); Potassium 4.1 mmol/L (3.5-5.1); Protein, Total 6.4 g/dL (6.4-8.2); Sodium Level 145 mmol/L (136-145)
[2022-05-04 20:07] LABS: Bacteria 0 SEEN /hpf (None Seen); Mucous, Urine 0 SEEN /hpf (<or=2+); Red Blood Cells-Urine 0 SEEN /hpf (0-5); White Blood Cells 0 SEEN /hpf (0-5)
[2022-05-04 20:13] LABS: Color, Urine Straw (Yellow); Glucose, Dipstick Normal (Normal); Ketone-Dipstick Negative (Negative); Leukocyte Esterase-Dipstick Negative /ul (Negative); Nitrite-Dipstick Negative (Negative); Occult Blood-Urine Negative /ul (Negative); Protein-Dipstick Negative (Negative); Urine Bilirubin Dipstick Negative (Negative); Urine Clarity Clear (Clear); Urine Urobilinogen Normal (Normal); Urine pH 6.5 (5.0 - 8.0)
[2022-05-04 20:18] LABS: Squamous Epithelial Cells - UA 0-5 SEEN /hpf (5-10)
[2022-05-04 20:19] LABS: Internal QC Validated? YES +Cl - CLEAR BKGD; Pregnancy, Urine Negative Negative
== END 2022-05-04 21:17 | disposition home or self-care (01) ==
PROVIDERS: Emergency Provider Student in an Organized Health Care Education/Training Program; PCP Physician Assistant; Visit Provider Student in an Organized Health Care Education/Training Program
DX: R10.9 Unspecified abdominal pain (principal); E78.5 Hyperlipidemia, unspecified; Z87.891 Personal history of nicotine dependence; R19.7 Diarrhea, unspecified
CPT/HCPCS: 74177; 80053; 81001; 81025; 83690; 85025; 96374; 99282; Q9967; A4216

== ENCOUNTER 2022-06-02 10:24 | Emergency (ER) | payer MEDICAID, SELFPAY ==
[2022-06-02 10:26] VITALS: BP 134/78; PULSE 78; RESP 16; TEMP 36.6; O2SAT 98
--- NOTE | 2022-06-02 10:44 | EDS_ITS ---
HPI History of Present Illness Chief Complaint: Upper Extremity Injury Narrative Narrative: Patient presents with right shoulder pain. She lifts quite a bit at work and does repetitive movements. The pain got worse over the past few days but she has noticed pain for some time. She has no neck pain. She has no paresthesias. No fevers or chills. She has no chest pain. [facility] Medical History Bipolar disorder Bowel obstruction Cardiac arrest due to respiratory disorder Chronic pain Former smoker Former tobacco use History of borderline diabetes mellitus History of multiple abdominal surgeries History of small bowel obstruction HLD (hyperlipidemia) Iron deficiency anemia Migraines Obesity Rheumatoid arthritis SBO (small bowel obstruction) Sleep apnea Home Medications magnesium hydroxide 1,200 mg chewable tablet (Dulcolax (magnesium hydroxide)) 1,200 mg PO QHS STOOL 03/10/22 [History Last Taken 03/09/22] hydrocodone-acetaminophen 5-325mg 5mg-325mg 1 tab PO Q4H PRN PRN Pain 3 days #10 TABLETS 06/02/22 [Rx Last Taken Unknown] Allergy/AdvReac Type Severity Reaction Status Date / Time hydromorphone HCl Allergy Severe Anaphylaxis Verified 05/04/22 16:36 [From Dilaudid] aspirin [From Percodan] Allergy Intermediate Swelling Verified 05/04/22 16:36 oxycodone terephthalate Allergy Intermediate Swelling Verified 05/04/22 16:36 [From Percodan] amoxicillin Allergy Hives Verified 05/04/22 16:36 ampicillin Allergy Swelling Verified 05/04/22 16:36 azithromycin Allergy Other Verified 05/04/22 16:36 erythromycin base Allergy Hives Verified 05/04/22 16:36 fentanyl Allergy Anaphylaxis Verified 05/04/22 16:36 orphenadrine [From Norflex] Allergy Anaphylaxis Verified 06/02/22 10:25 oxycodone HCl [From Percocet] Allergy Anaphylaxis Verified 05/04/22 16:36 propoxyphene napsylate Allergy Other Verified 05/04/22 16:36 [From Darvocet-N] Sulfa (Sulfonamide Allergy Other Verified 05/04/22 16:36 Antibiotics) tramadol Allergy Hives Verified 05/04/22 16:36 Family History Father Cancer Hx Leukemia. Diabetes CVA (cerebral vascular accident) Mother Cancer Surgical History H/O: hysterectomy History of appendectomy History of bowel resection History of cholecystectomy S/P cholecystectomy S/P exploratory laparotomy Social History household members: family Smoking Status: Former smoker alcohol intake: never substance use type: does not use ROS ROS ED ROS Narrative Past medical history: Reviewed, includes history of colitis and chronic abd ominal pain as well as ileus, history of hydroureter. Medications: Reviewed Social history: Repetitive work with her arms Review of systems: Musculoskeletal: Right shoulder pain Skin: No abrasions or lacerations Neurological: No weakness or paresthesias Hematologic: No easy bleeding or easy bruising EXAM Physical Exam Narrative Exam Narrative: Physical exam General: Patient does not appear in significant distress . Head: Normocephalic, Atraumatic Neck: No C-spine tenderness Cardiovascular: Normal distal pulses Back: Nontender, Normal Inspection. Extremities: Patient has reproducible tenderness in her right shoulder. Pain is worse with abduction past about 30 degrees worse with placement of the arm behind the back, there is no bony tenderness seems to be mostly in the muscle region. She has no clavicle or AC joint pain. Skin: No abrasions, no lacerations Neurological: Normal strength and sensation Const Vital Signs: 06/02/22 10:26 Temperature 97.8 F Temperature Source Temporal Pulse Rate 78 Respiratory Rate 16 Blood Pressure 134/78 H Blood Pressure Mean 96 Pulse Ox 98 Oxygen Delivery Method Room Air MDM MDM MDM Narrative Medical decision making narrative: I thought about a shoulder x-ray however the patient has classic rotator cuff tendinitis with minimal bony tenderness. I believe the patient can be treated symptomatically I will refer to orthopedics. I showed her some exercises and I told her to stop doing repetitive movement at work which is going to be somewhat difficult for her. Otherwise I believe she can be safely discharged home. Discharge Plan Triage Chief Complaint: Upper Extremity Injury ED Provider: Kyler Lugo Dx/Rx/DC Orders Clinical Impression: Right rotator cuff tendinitis, Acute shoulder pain Instructions: ED Shoulder Impingement Syndrome, ED RICE, Tendonitis and Tenosynovitis Prescriptions: New hydrocodone-acetaminophen 5-325 mg tablet 1 tab PO Q4H PRN PRN (Reason: Pain) 3 Days Qty: 10 0RF No Action Dulcolax (magnesium hydroxide) 1,200 mg Tablet,Chewable 1,200 mg PO QHS Primary Care Provider: Mesfin Ramos Referrals: Mesfin Ramos, PA [Primary Care Provider] - 3-5 Days Disposition Disposition: Home, Self Care
[2022-06-02] MEDS: Ketorolac 30 MG/ML Syringe IM (10:59)
[2022-06-02 11:02] VITALS: BMI 35.4
[2022-06-02 11:40] VITALS: BP 134/78; PULSE 78; RESP 16; TEMP 36.9; O2SAT 99
== END 2022-06-02 11:41 | disposition home or self-care (01) ==
LOC: ED 11:09
PROVIDERS: Emergency Provider Emergency Medicine; PCP Physician Assistant; Visit Provider Emergency Medicine
DX: M77.8 Other enthesopathies, not elsewhere classified (principal); M25.511 Pain in right shoulder; Z87.891 Personal history of nicotine dependence; E78.5 Hyperlipidemia, unspecified
CPT/HCPCS: 96372; 99282

== ENCOUNTER 2022-06-10 08:39 | Emergency (ER) | payer MEDICAID, SELFPAY ==
[2022-06-10 08:40] VITALS: BP 109/69; PULSE 102; RESP 14; TEMP 36.1; O2SAT 96; BMI 34.7
--- NOTE | 2022-06-10 09:11 | CT_ITS ---
STUDY: CT ABDOMEN AND PELVIS WITH CONTRAST REASON FOR EXAM: Female, 41 years old. Left abd pain, vomiting, hx SBO -- IV PO Contrast RADIATION DOSAGE (If Supplied By Facility): CTDIvol = ( 17.14 ) mGy, DLP = ( 1089.57 ) mGycm TECHNIQUE: Transaxial images were obtained from the dome of the diaphragm to the symphysis pubis with oral contrast. Oral and amp;amp; IV Gastrografin and amp;amp; 100mL Isovue-300 was administered. Sagittal and coronal images were reconstructed. Individualized dose optimization techniques were used for this CT. COMPARISON: Comparison is made with prior study dated 05/04/2022. FINDINGS: Mild degree of increased markings at the lung bases suggestive of a atelectasis and mild scarring. The visualized portions of the heart are within normal limits. Stable tiny cyst in the segment 4A of the liver. Normal gallbladder and extrahepatic biliary system. Normal spleen. Normal pancreas. Normal bilateral adrenal glands. Normal right kidney. Normal left kidney. Normal visualized stomach. Minimally dilated small bowel loops in the left upper quadrant. Large amount of fecal material is seen in the colon down to the anastomotic region in the sigmoid colon. Distal to the anastomotic region, the sigmoid colon and rectum are not distended. The patient is status post cholecystectomy. Normal abdominal aorta. Normal inferior vena cava. Normal retroperitoneum. Normal urinary bladder. Normal abdominal wall. Normal osseous structures. CT/Abdomen/Pelvis WITH Contrast IMPRESSION: Narrowing of the anastomosis in the sigmoid colon with a large amount of fecal material and the dilated colon proximal to the surgical anastomosis. Electronically Signed: Kali Luque MD at 13:32 EST ,
--- NOTE | 2022-06-10 09:12 | ED.VIS.GI ---
HPI HPI - GI History of Present Illness Chief Complaint: Abd Pain Informant: patient Narrative Narrative: Started having mid and left abdominal discomfort last night, subsequently started vomiting, which got worse. She has been vomiting all night and morning, not able to keep anything down, no fevers or chills that she knows of, no known sick contacts. Most of the pain is in the left side of her abdomen. She has chronic diarrhea that is no different she is still having it. No blood or melena. She has chronic diarrhea because she has had some small and large partial bowel resections due to small bowel obstructions, she does have abdominal pain every day but not constantly and not like this which has been constant since it started. [facility] Medical History Bipolar disorder Bowel obstruction Cardiac arrest due to respiratory disorder Chronic pain Former smoker Former tobacco use History of borderline diabetes mellitus History of multiple abdominal surgeries History of small bowel obstruction HLD (hyperlipidemia) Iron deficiency anemia Migraines Obesity Rheumatoid arthritis SBO (small bowel obstruction) Sleep apnea Home Medications magnesium hydroxide 1,200 mg chewable tablet (Dulcolax (magnesium hydroxide)) 1,200 mg PO QHS STOOL 03/10/22 [History Last Taken 03/09/22] hydrocodone-acetaminophen 5-325mg 5mg-325mg 1 tab PO Q4H PRN PRN Pain 3 days #10 TABLETS 06/02/22 [Rx Last Taken Unknown] hydrocodone-acetaminophen 5-325mg 5mg-325mg 1 tab PO Q6H PRN PRN Pain 3 days #10 TABLETS 06/10/22 [Rx Last Taken Unknown] ondansetron 4 mg disintegrating tablet 8 mg PO Q8H PRN PRN Nausea #20 tabs 06/10/22 [Rx Last Taken Unknown] Allergy/AdvReac Type Severity Reaction Status Date / Time hydromorphone HCl Allergy Severe Anaphylaxis Verified 06/10/22 08:40 [From Dilaudid] aspirin [From Percodan] Allergy Intermediate Swelling Verified 06/10/22 08:40 oxycodone terephthalate Allergy Intermediate Swelling Verified 06/10/22 08:40 [From Percodan] amoxicillin Allergy Hives Verified 06/10/22 08:40 ampicillin Allergy Swelling Verified 06/10/22 08:40 azithromycin Allergy Other Verified 06/10/22 08:40 erythromycin base Allergy Hives Verified 06/10/22 08:40 fentanyl Allergy Anaphylaxis Verified 06/10/22 08:40 orphenadrine [From Norflex] Allergy Anaphylaxis Verified 06/10/22 08:40 oxycodone HCl [From Percocet] Allergy Anaphylaxis Verified 06/10/22 08:40 propoxyphene napsylate Allergy Other Verified 06/10/22 08:40 [From Darvocet-N] Sulfa (Sulfonamide Allergy Other Verified 06/10/22 08:40 Antibiotics) tramadol Allergy Hives Verified 06/10/22 08:40 Family History Father Cancer Hx Leukemia. Diabetes CVA (cerebral vascular accident) Mother Cancer Surgical History H/O: hysterectomy History of appendectomy History of bowel resection History of cholecystectomy S/P cholecystectomy S/P exploratory laparotomy Social History household members: family Smoking Status: Former smoker alcohol intake: never substance use type: does not use ROS ROS ED Constitutional Constitutional ED: Denies chills or fever(s) Eyes Eyes: Denies change in vision or diplopia ENT ENT ED: Denies rhinorrhea or sore throat Cardiovascular Cardiovascular: Denies chest pain or palpitations Respiratory/Chest Respiratory/Chest: Denies cough or dyspnea Gastrointestinal Gastrointestinal: Reports as per HPI, abdominal pain, diarrhea, nausea and vomiting Genitourinary Genitourinary ED: Denies dysuria or hematuria Musculoskeletal Musculoskeletal: Denies back pain or neck pain Integumentary Denies abscess or rash Neurologic Neurologic: Denies headache(s), paresthesias or weakness Psychiatric Psychiatric: Denies anxiety or suicidal thoughts EXAM Physical Exam Const Vital Signs: 06/10/22 08:40 06/10/22 12:00 06/10/22 14:00 Temperature 97 F L Temperature Source Temporal Pulse Rate 102 H Respiratory Rate 14 18 16 Blood Pressure 109/69 Blood Pressure Mean 82 Pulse Ox 96 Oxygen Delivery Method Room Air Positive well nourished and well developed General Appearance ED: well developed and NAD HEENT Reports moist mucous membranes normocephalic and atraumatic Eyes PERRL and EOMs intact bilaterally Neck full ROM and supple Resp normal respiratory effort and clear to auscultation bilaterally Cardio regular rate, regular rhythm and no murmurs GI GI Narrative: Mild abdominal distention versus obesity. Tender throughout the left side mostly in the lower quadrant, nontender right of the midline, mild guarding in the left lower quadrant only. Voluntary. No rebound tenderness. Abdomen soft. Auscultation: hypoactive bowel sounds Palpation: soft Back/Spine no CVA tenderness General Back: other FROM Extremity normal to inspection General Extremety ED: Negative for edema, pulses abnormal or tenderness General Extremity: Negative for edema or pulses abnormal Neuro oriented x3, CN's II-XII intact bilaterally and no sensory deficits noted Sensorium / Orientation: awake and alert Motor Exam: strength 5/5 throughout Skin no rashes or lesions noted and no wounds MDM MDM MDM Narrative Medical decision making narrative: CT was obtained, with oral and IV contrast, labs were obtained. The labs are all normal including liver enzymes and lipase. She was treated with IV fluids, morphine, Zofran she did feel much better on reevaluation and doing better and keeping down oral fluids. I reviewed the CT images, similar to the ones she had in February, and I reviewed the radiologist interpretation. My interpretation of the CT agrees with that of the radiologist. Discussed with Dr. Jack. He agrees patient can probably be discharged and follow-up given that clinically she is doing somewhat better and she does not have a leukocytosis, but also advises discussing with radiologist who interpreted the imaging. I discussed with Dr. Luque. He agrees that these images do not represent an acute small bowel obstruction, they appear to be a chronic issue, at similar location with similar appearance to February but a little worse with regards to the backup of stool behind it. She has been having diarrhea and having stool flowing. Given given this I do not think she needs to be admitted. Follow-up with her [facility] colorectal surgeons recommended. We will give her prescriptions. Lab Data Attestation: I reviewed the patient's lab results. Labs: Laboratory Results - last 24 hr 06/10/22 06/10/22 09:27 09:27 WBC 4.6 RBC 4.53 Hgb 12.8 Hct 40.4 MCV 89.2 MCH 28.3 MCHC 31.7 L RDW Std Deviation 46.5 H RDW Coeff of Yovana 14.3 Plt Count 176 MPV 10.1 Immature Gran % (Auto) 0.200 Neut % (Auto) 79.5 H Lymph % (Auto) 12.8 L [place] % (Auto) 5.4 Eos % (Auto) 1.7 Baso % (Auto) 0.4 Absolute Neuts (auto) 3.7 Absolute Lymphs (auto) 0.59 L Nucleated RBC % 0 Differential Comment SCANNED Sodium 141 Potassium 4.8 Chloride 111 H Carbon Dioxide 28.0 Anion Gap 2 L BUN 14 Creatinine 0.98 Estim Creat Clear Calc 61.86 Est GFR (MDRD) Af Amer 79 Est GFR (MDRD) Non-Af 66 BUN/Creatinine Ratio 14.2 Glucose 102 Calcium 9.0 Total Bilirubin 0.60 AST 31 ALT 32 Alkaline Phosphatase 92 Total Protein 6.6 Albumin 3.2 Globulin 3.4 Albumin/Globulin Ratio 0.9 Lipase 88 Radiography Diagnostic Testing: Clinical Impression(s) from Imaging Studies Abdomen/Pelvis CT 06/10/22 09:11 IMPRESSION: Narrowing of the anastomosis in the sigmoid colon with a large amount of fecal material and the dilated colon proximal to the surgical anastomosis. Electronically Signed: Kali Luque MD at 13:32 EST Reading Location ID and State: [facility] / [place] , Service support , Discharge Plan Triage Chief Complaint: Abd Pain ED Provider: Arie Oconnell Dx/Rx/DC Orders Clinical Impression: Left sided abdominal pain, Intestinal anastomosis present Instructions: Abdominal Pain Prescriptions: New hydrocodone-acetaminophen [hydrocodone-acetaminophen] 5-325 mg tablet 1 tab PO Q6H PRN PRN (Reason: Pain) 3 Days Qty: 10 0RF ondansetron [ondansetron] 4 mg tablet,disintegrating 8 mg PO Q8H PRN PRN (Reason: Nausea) Qty: 20 0RF No Action Dulcolax (magnesium hydroxide) 1,200 mg Tablet,Chewable 1,200 mg PO QHS hydrocodone-acetaminophen 5-325 mg tablet 1 tab PO Q4H PRN PRN (Reason: Pain) 3 Days Qty: 10 0RF Primary Care Provider: Mesfin Ramos Referrals: Surgeon, your [Other] - As soon as possible (Follow-up with your [facility] colorectal surgeons. If you want referral to other colorectal surgeon, discussed with your primary care. We do not have any in our system or in [facility] to refer you to.) Mesfin Ramos PA [Primary Care Provider] - Disposition Disposition: Home, Self Care
[2022-06-10 09:38] LABS: Absolute Lymphocyte Count 0.59 X10^3/uL (0.83-4.51); Absolute Neutrophil Count 3.7 X10^3/uL (2.0-7.7); Basophil# 0.02 X10^3/uL; Basophil% 0.4 % (0-1); Eosinophil# 0.08 X10^3/uL; Eosinophils% 1.7 % (0-5); Hematocrit 40.4 % (37-47); Hemoglobin 12.8 g/dL (12.0-15.0); Lymphocyte # 0.59 X10^3/ul (0.83-4.51); Lymphocyte % 12.8 % (19-41); Mean Corp Hgb Conc 31.7 g/dL (32-36); Mean Corpuscular Hgb 28.3 pg (27.0-32.0); Mean Corpuscular Volume 89.2 fL (81-99); Mean Platelet Vol. 10.1 fl (6.2-12.0); Monocyte# 0.25 X10^3/uL; Monocyte% 5.4 % (0-10); NRBC Flagged by Analyzer 0 % (0-5); Neutrophil # 3.67 X10^3/uL (2.7-7.7); Neutrophil % 79.5 % (47-70); POSITIVE DIFFERENTIAL YES; Platelet Count 176 K/mm3 (150-450); RBC Distribution Width CV 14.3 % (11.6-14.6); RBC Distribution Width SD 46.5 fl (35.1-43.9); Red Blood Count 4.53 M/mm3 (4.2-5.4); White Blood Count 4.6 K/mm3 (4.4-11.0)
[2022-06-10 09:41] LABS: Differential Indicated SCAN CRITERIA MET
[2022-06-10 10:00] LABS: ALB/GLOB Ratio 0.9 RATIO (0.9-2.4); AST(SGOT) 31 U/L (15-37); Alanine Aminotransfer ALT/SGPT 32 U/L (13-56); Albumin, Serum 3.2 g/dL (3.2-5.0); Alkaline Phosphatase 92 U/L (45-117); Anion Gap 2 (5-15); BUN 14 mg/dL (7-18); BUN/Creat Ratio 14.2 RATIO (10-20); Chloride 111 mmol/L (98-107); Creatinine, Serum 0.98 mg/dL (0.55-1.02); EST Glomerular Filtration Rate 66 mL/min (>60); Est Glom Filt Rate - Afr Amer 79 mL/min (>60); Estimated Creatinine Clearance 61.86 ml/min; Globulin 3.4 g/dL (2.2-4.2); Glucose 102 mg/dL (74-106); Lipase 88 U/L (73-393); Potassium 4.8 mmol/L (3.5-5.1); Protein, Total 6.6 g/dL (6.4-8.2); Sodium Level 141 mmol/L (136-145)
[2022-06-10 10:21] LABS: Differential Comment SCANNED
[2022-06-10] MEDS: 0.9% Normal Saline 1,000 ML 1000 ML IV (10:23)
[2022-06-10] MEDS: Ondansetron 4 MG/2 ML Vial IV (10:24)
[2022-06-10] MEDS: Morphine 4 MG/ML Syringe IV (10:24)
[2022-06-10 12:00] VITALS: RESP 18
[2022-06-10 14:00] VITALS: RESP 16
== END 2022-06-10 14:46 | disposition home or self-care (01) ==
PROVIDERS: Emergency Provider Emergency Medicine; PCP Physician Assistant; Visit Provider Emergency Medicine
DX: R10.9 Unspecified abdominal pain (principal); K52.9 Noninfective gastroenteritis and colitis, unspecified; E78.5 Hyperlipidemia, unspecified; Z87.891 Personal history of nicotine dependence; Z98.0 Intestinal bypass and anastomosis status
CPT/HCPCS: 74177; 80053; 83690; 85025; 96361; 96374; 96375; 99283; J7030; Q9967; A4216; J2405

== ENCOUNTER 2022-08-06 10:06 | Emergency (ER) | payer MEDICAID, SELFPAY ==
[2022-08-06 10:08] VITALS: BP 133/79; PULSE 73; RESP 14; TEMP 35.6; O2SAT 95; BMI 35.6
[2022-08-06] MEDS: Morphine 4 MG/ML Syringe IM (11:56)
--- NOTE | 2022-08-06 12:00 | EDS_ITS ---
HPI History of Present Illness Chief Complaint: Upper Extremity Injury Informant: patient Narrative Narrative: Patient is a 41-year-old female presenting with acute on chronic right shoulder pain presenting with worsening right shoulder pain and numbness of her right UE. Patient states she had shoulder issues for the past 2 months but its been acting up over the past 4 days. She notes she works 2 jobs, 1 at [employer] and another at a [employer]. She saw her primary care doctor couple Dr. Luz who did x-ray and put in a sling but she states the sling was too painful. She was referred to with orthopedics and had an MRI of her shoulder where she was to ld she had a lot of arthritis. She has been on courses of steroids but states she does not tolerate them and just throws them up and they do not help. She states NSAIDs do not help. She is been taking Tylenol which not touching the pain at all which is unusual for her. She notes today she was reaching up to put stack in the heater when she felt a pop in her shoulder and had worsening pain. She states pain is worse with movement she has decreased strength. She notes that this occurred around 730 or 8 AM and her arm has been numb. She states she has numbness that alternates between her forearm and her hand. She states we will switch within the second of each other. It depends on how she is holding her shoulder. Patient notes she has previously seen Dr. De Leon, for pain management in the past but does not want to see him as he cause more issues. This was related to her abdominal pain. She states she had been referred to physical therapy but she refuses to go back when they lifted up her arm causing worsening pain after she especially told not to. Notes she has had numbness in the past but she feeling this is more severe. She also states that he normally helps but its not helping today. No other complaints or new injuries reported. [facility] Medical History Bipolar disorder Bowel obstruction Cardiac arrest due to respiratory disorder Chronic pain Former smoker Former tobacco use History of borderline diabetes mellitus History of multiple abdominal surgeries History of small bowel obstruction HLD (hyperlipidemia) Iron deficiency anemia Migraines Obesity Rheumatoid arthritis SBO (small bowel obstruction) Sleep apnea Home Medications magnesium hydroxide 1,200 mg chewable tablet (Dulcolax (magnesium hydroxide)) 1,200 mg PO QHS STOOL 03/10/22 [History Last Taken 03/09/22] hydrocodone-acetaminophen 5-325mg 5mg-325mg 1 tab PO Q4H PRN PRN Pain 3 days #10 TABLETS 06/02/22 [Rx Last Taken Unknown] hydrocodone-acetaminophen 5-325mg 5mg-325mg 1 tab PO Q6H PRN PRN Pain 3 days #10 TABLETS 06/10/22 [Rx Last Taken Unknown] ondansetron 4 mg disintegrating tablet 8 mg PO Q8H PRN PRN Nausea #20 tabs 06/10/22 [Rx Last Taken Unknown] hydrocodone-acetaminophen 5-325mg 5mg-325mg 1 tab PO Q6H PRN PRN Pain 3 days #10 TABLETS 08/06/22 [Rx Last Taken Unknown] Allergy/AdvReac Type Severity Reaction Status Date / Time hydromorphone HCl Allergy Severe Anaphylaxis Verified 08/06/22 10:09 [From Dilaudid] aspirin [From Percodan] Allergy Intermediate Swelling Verified 08/06/22 10:09 oxycodone terephthalate Allergy Intermediate Swelling Verified 08/06/22 10:09 [From Percodan] amoxicillin Allergy Hives Verified 08/06/22 10:09 ampicillin Allergy Swelling Verified 08/06/22 10:09 azithromycin Allergy Other Verified 08/06/22 10:09 erythromycin base Allergy Hives Verified 08/06/22 10:09 fentanyl Allergy Anaphylaxis Verified 08/06/22 10:09 orphenadrine [From Norflex] Allergy Anaphylaxis Verified 08/06/22 10:09 oxycodone HCl [From Percocet] Allergy Anaphylaxis Verified 08/06/22 10:09 propoxyphene napsylate Allergy Other Verified 08/06/22 10:09 [From Darvocet-N] Sulfa (Sulfonamide Allergy Other Verified 08/06/22 10:09 Antibiotics) tramadol Allergy Hives Verified 08/06/22 10:09 Family History Father Cancer Hx Leukemia. Diabetes CVA (cerebral vascular accident) Mother Cancer Surgical History H/O: hysterectomy History of appendectomy History of bowel resection History of cholecystectomy S/P cholecystectomy S/P exploratory laparotomy Social History household members: family Smoking Status: Former smoker alcohol intake: never substance use type: does not use ROS ROS ED Constitutional Constitutional ED: Denies chills or fever(s) Cardiovascular Cardiovascular: Denies chest pain Respiratory/Chest Respiratory/Chest: Denies cough Gastrointestinal Gastrointestinal: Denies abdominal pain Musculoskeletal Musculoskeletal: Reports other Details: right shoulder pain ; Denies back pain or neck pain Integumentary Denies rash Neurologic Neurologic: Reports paresthesias RUE and weakness; Denies headache(s) Psychiatric Psychiatric: Denies anxiety Hematologic/Lymphatic Hematologic/Lymphatic: Denies easy bleeding or easy bruising EXAM Physical Exam Const Vital Signs: 08/06/22 10:08 Temperature 96.0 F L Temperature Source Temporal Pulse Rate 73 Respiratory Rate 14 Blood Pressure 133/79 H Blood Pressure Mean 97 Pulse Ox 95 Oxygen Delivery Method Room Air Positive well nourished and well developed General Appearance ED: well developed and NAD HEENT Reports moist mucous membranes Eyes PERRL and EOMs intact bilaterally Neck full ROM and supple Chest Wall inspection of chest normal and palpation of chest normal Resp normal respiratory effort and clear to auscultation bilaterally Cardio regular rate, regular rhythm and no murmurs Cardio Narrative: 2+ radial pulses Extremity normal to inspection Extremity Narrative: decreased ROM of right shoulder secondary to pain. Tenderness to palpation of anterior shoulder diffusely. Difficulty with flexion and extension of the forearm, Abduction of the shoulder. Good strength with adduction of the shoulder. 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 Able to make a fist, thumbs up, cross fingers, Abduct the fingers and a duct the fingers. Brisk capillary refill. 2+ radial pulses. Neuro oriented x3 Neuro Narrative: Decreased sensation of the right hand diffusely to sharp and light touch. Intact proprioception. This symptom is intermittent and sometimes she has decree sensation of the forearm with sensation intact of the hand and then it will reverse. Sensorium / Orientation: alert Psych mental status grossly normal Skin Lesions: no lesions Rashes: no rashes MDM MDM MDM Narrative Medical decision making narrative: Patient's evaluated for atraumatic acute on chronic right shoulder pain. While she states that she has numbness in her hand that alternates with numbness in her forearm this does not follow any dermatomal distribution and really does not make sense physiologically. Low suspicion for stroke or acute nerve compression given the rapid fluctuation between diffuse numbness in the forearm and numbness in the hand. Her compartments are soft. Vital signs are largely normal. Patient is already had an MRI and I do not think further imaging is indicated but she has not had any new injury. Is given referral to a different orthopedist as she was not satisfied with [facility] orth[facility] as well as a different pain management doctor, Dr. Covarrubias. Counseled to also follow-up with her primary care doctor. Is given a dose of morphine as well as a short course of [place]. [facility] report is obtained and patient does not have any active opioid prescriptions not been seen in the ER for 2 months for this pain. Discharge Plan Triage Chief Complaint: Upper Extremity Injury ED Provider: Maria M Torres Dx/Rx/DC Orders Clinical Impression: Paresthesia and pain of right extremity, Pain in right shoulder Instructions: ED Radiculopathy, Cervical, ED Paraesthesias, ED Shoulder Pain, Uncertain Cause Prescriptions: New hydrocodone-acetaminophen 5-325 mg tablet 1 tab PO Q6H PRN PRN (Reason: Pain) 3 Days Qty: 10 0RF No Action Dulcolax (magnesium hydroxide) 1,200 mg Tablet,Chewable 1,200 mg PO QHS hydrocodone-acetaminophen 5-325 mg tablet 1 tab PO Q4H PRN PRN (Reason: Pain) 3 Days Qty: 10 0RF hydrocodone-acetaminophen [hydrocodone-acetaminophen] 5-325 mg tablet 1 tab PO Q6H PRN PRN (Reason: Pain) 3 Days Qty: 10 0RF ondansetron [ondansetron] 4 mg tablet,disintegrating 8 mg PO Q8H PRN PRN (Reason: Nausea) Qty: 20 0RF Primary Care Provider: Mesfin Ramos Referrals: Israel Covarrubias DO [Non-Staff] - As soon as possible George Rios DO [Med Staff - Active Staff] - As soon as possible Mesfin Ramos PA [Primary Care Provider] - Activity Restrictions/Additional Instructions: Continue to use heat. If you have a progression of your symptoms please return to the emergency room. For further pain medicine this needs evaluation by either your primary care doctor, pain management or orthopedics. Disposition Disposition: Home, Self Care Discharge Date/Time: 08/06/22 12:26
== END 2022-08-06 12:26 | disposition home or self-care (01) ==
PROVIDERS: Emergency Provider Emergency Medicine; PCP Physician Assistant; Visit Provider Emergency Medicine
DX: M25.511 Pain in right shoulder (principal); M06.9 Rheumatoid arthritis, unspecified; F31.9 Bipolar disorder, unspecified; R20.2 Paresthesia of skin; G89.29 Other chronic pain; R73.03 Prediabetes; E78.5 Hyperlipidemia, unspecified; Z79.899 Other long term (current) drug therapy; Z87.891 Personal history of nicotine dependence
CPT/HCPCS: 96372; 99283

== ENCOUNTER 2022-08-10 09:18 | Emergency (ER) | payer MEDICAID, SELFPAY ==
[2022-08-10 09:19] VITALS: BP 105/81; PULSE 76; RESP 18; TEMP 35.8; O2SAT 100; BMI 36.9
--- NOTE | 2022-08-10 09:24 | EX.ED.DYSGE1 ---
HPI History of Present Illness Chief Complaint: Abd Pain Narrative Narrative: 41-year-old female here with abdominal pain. Patient states this started approximately 4 AM. States she is got severe abdominal pain that reminds her of her last bowel blockage. Patient further states she developed for episodes of nonbloody nonbilious nausea vomiting prior to arrival. She states her last bowel movement was just prior to arrival and was dark green but with no melena or hematochezia. She states she has history of multiple abdominal surgeries. She states pain is located in the lower abdomen and is described as crampy is nonradiating. It was exacerbated by her moving a pallet of stack at work at [employer]. She states as she lifted a pallet she experienced sharp bilateral lower abdominal pain. She denies any urinary complaints. Denies any vaginal bleeding or discharge. [facility] Medical History Bipolar disorder Bowel obstruction Cardiac arrest due to respiratory disorder Chronic pain Former smoker Former tobacco use History of borderline diabetes mellitus History of multiple abdominal surgeries History of small bowel obstruction HLD (hyperlipidemia) Iron deficiency anemia Migraines Obesity Rheumatoid arthritis SBO (small bowel obstruction) Sleep apnea Home Medications magnesium hydroxide 1,200 mg chewable tablet (Dulcolax (magnesium hydroxide)) 1,200 mg PO QHS STOOL 03/10/22 [History Last Taken 03/09/22] hydrocodone-acetaminophen 5-325mg 5mg-325mg 1 tab PO Q4H PRN PRN Pain 3 days #10 TABLETS 06/02/22 [Rx Last Taken Unknown] hydrocodone-acetaminophen 5-325mg 5mg-325mg 1 tab PO Q6H PRN PRN Pain 3 days #10 TABLETS 06/10/22 [Rx Last Taken Unknown] ondansetron 4 mg disintegrating tablet 8 mg PO Q8H PRN PRN Nausea #20 tabs 06/10/22 [Rx Last Taken Unknown] hydrocodone-acetaminophen 5-325mg 5mg-325mg 1 tab PO Q6H PRN PRN Pain 3 days #10 TABLETS 08/06/22 [Rx Last Taken Unknown] ondansetron 4 mg disintegrating tablet 4 mg PO Q8H PRN PRN Nausea #10 tabs 08/10/22 [Rx Last Taken Unknown] Allergy/AdvReac Type Severity Reaction Status Date / Time hydromorphone HCl Allergy Severe Anaphylaxis Verified 08/10/22 09:18 [From Dilaudid] aspirin [From Percodan] Allergy Intermediate Swelling Verified 08/10/22 09:18 oxycodone terephthalate Allergy Intermediate Swelling Verified 08/10/22 09:18 [From Percodan] amoxicillin Allergy Hives Verified 08/10/22 09:18 ampicillin Allergy Swelling Verified 08/10/22 09:18 azithromycin Allergy Other Verified 08/10/22 09:18 erythromycin base Allergy Hives Verified 08/10/22 09:18 fentanyl Allergy Anaphylaxis Verified 08/10/22 09:18 orphenadrine [From Norflex] Allergy Anaphylaxis Verified 08/10/22 09:18 oxycodone HCl [From Percocet] Allergy Anaphylaxis Verified 08/10/22 09:18 propoxyphene napsylate Allergy Other Verified 08/10/22 09:18 [From Darvocet-N] Sulfa (Sulfonamide Allergy Other Verified 08/10/22 09:18 Antibiotics) tramadol Allergy Hives Verified 08/10/22 09:18 Family History Father Cancer Hx Leukemia. Diabetes CVA (cerebral vascular accident) Mother Cancer Surgical History H/O: hysterectomy History of appendectomy History of bowel resection History of cholecystectomy S/P cholecystectomy S/P exploratory laparotomy Social History household members: family Smoking Status: Former smoker alcohol intake: never substance use type: does not use ROS ROS ED ROS Narrative Constitutional: Denies fever HEENT: Denies sore throat Neck: Denies neck pain Cardiovascular: Denies chest pain, syncope Respiratory: Denies shortness of breath GI: Endorses abdominal pain : Denies changes in urinary habits Musculoskeletal: Denies muscle or joint pain Neurologic: Denies numbness weakness or loss of sensation Skin denies rash EXAM Physical Exam Narrative Exam Narrative: Nursing triage notes reviewed, Vital signs reviewed Constitutional: please see mdm HENT: MMM Eyes: Pupils equal round and reactive to light, Extraocular muscles intact Neck: No stridor, no JVD, full neck ROM Lungs: Clear to auscultation, No wheezing or rales. No increased work of breathing, no conversational dyspnea, no accessory muscle use, no nasal flaring. No respiratory distress noted Heart: Regular rate and rhythm, No murmurs, No rubs and No gallops, 2+ distal pulses (radial, femoral, posterior tibial) in all extremities Abdomen: Soft, diffuse tenderness but no rigidity, rebound or guarding, no obvious peritoneal signs, no palpable pulsatile abdominal masses, no auscultated abdominal bruit : No CVAT Extremities: No edema Neuro: No focal neurological deficits, cranial nerves II through XII intact, 5/5 strength in all extremities. Intact sensation to light touch in all extremities, 2+ reflexes bilateral patella dens. Normal gait. No ataxia. Skin: No rash or lesions noted Const Vital Signs: 08/10/22 09:19 08/10/22 12:00 08/10/22 14:00 Temperature 96.5 F L Temperature Source Temporal Pulse Rate 76 46 L Respiratory Rate 18 18 18 Blood Pressure 105/81 H 101/55 L Blood Pressure Mean 89 70 Pulse Ox 100 100 Oxygen Delivery Method Room Air Room Air MDM MDM MDM Narrative Medical decision making narrative: Chief Complaint: Abdominal pain External records reviewed: CT scan of the abdomen pelvis from June 2022 shows IMPRESSION: Narrowing of the anastomosis in the sigmoid colon with a large amount of fecal material and the dilated colon proximal to the surgical anastomosis. MDM: The patient was hemodynamically stable, afebrile, nontoxic-appearing. Abdominal exam with diffuse tenderness but no obvious peritoneal signs. I considered the following differential diagnosis: Small bowel obstruction, perforation, pancreatitis, hepatobiliary obstruction, colitis, gastritis I obtained a broad lab and imaging work-up to further elucidate the etiology the patient's complaint. I gave the patient morphine, Zofran and fluids for symptomatic relief and rehydration. Labs and images were remarkable for no evidence of leukocytosis to suggest systemic inflammation, no severe anemia, no severe electrolyte abnormalities, acute kidney injury or anion gap to suggest endorgan hypoperfusion. Urinalysis negative. Urine test was negative. CT scan initially was read as concerning for small bowel obstruction however on my read CT appeared very similar to prior CT in June when patient had a similar presentation and was found to not have a bowel obstruction on small bowel follow-through. Patient was found to have a normal small bowel series indicative of baseline anatomic abnormalities around an obstruction secondary to prior resection. I did discuss case with Dr. Saleh general surgery who agrees with my interpretation and recommended getting a repeat small bowel follow-through to further elucidate the etiology of the patient's complaints. Small bowel study showed patent small bowel ruling out small bowel obstruction. The etiology patient complains unclear but unlikely be associated with something life or limb threatening at this time. She is able to tolerate p.o. She is appropriate discharge home with close outpatient follow-up and strict return precautions. Patient agreed with plan Factors affecting care: History of colitis, ileus Social determinants of health: History obtained from others: Shared decision making: I will have a discussion with the patient and or visitors regarding risk/benefits of further testing or admission. They will be made aware of of the risk/benefits inherent in this decision they will be given the opportunity to voice understanding. Consults: General surgery Lab Data Attestation: I reviewed the patient's lab results. Lab results narrative: CBC without leukocytosis, severe anemia, no thrombocytopenia. BMP without evidence of significant electrolyte abnormalities, no anion gap, no acute kidney injury. UA without evidence of infection Lipase is wnl indicating no pancreatic inflammation. Urine test negative Labs: Laboratory Results - last 24 hr 08/10/22 08/10/22 08/10/22 09:45 09:45 10:49 WBC 7.3 RBC 4.73 Hgb 13.2 Hct 41.8 MCV 88.4 MCH 27.9 MCHC 31.6 L RDW Std Deviation 45.5 H RDW Coeff of [place]ov[place] 14.1 Plt Count 248 MPV 9.7 Immature Gran % (Auto) 0.500 Neut % (Auto) 57.0 Lymph % (Auto) 32.7 [place] % (Auto) 6.5 Eos % (Auto) 2.5 Baso % (Auto) 0.8 Absolute Neuts (auto) 4.2 Absolute Lymphs (auto) 2.38 Nucleated RBC % 0 Sodium 144 Potassium 4.2 Chloride 112 H Carbon Dioxide 27.0 Anion Gap 5 BUN 12 Creatinine 1.40 H Estim Creat Clear Calc 43.30 Est GFR (MDRD) Af Amer 53 L Est GFR (MDRD) Non-Af 44 L BUN/Creatinine Ratio 8.6 L Glucose 85 Calcium 9.3 Lipase 37 Urine Color Yellow Urine Clarity Sl. Cloudy Urine pH 6.0 Ur Specific [place] 1.020 Urine Protein Negative Urine Glucose (UA) Normal Urine Ketones Negative Urine Occult Blood Negative Urine Nitrite Negative Urine Bilirubin Negative Urine Urobilinogen Normal Ur Leukocyte Esterase Negative Urine RBC 0 SEEN Urine WBC 0 SEEN Ur Squamous Epith Cells 0-5 SEEN Urine Bacteria 1+ Urine Mucus 0 SEEN Urine Test Negative Radiography Diagnostic Testing: Clinical Impression(s) from Imaging Studies Small Bowel X-Ray 08/10/22 14:35 IMPRESSION: Normal small bowel series. Electronically Signed: Kali Luque MD at 15:48 EDT , Discharge Plan Triage Chief Complaint: Abd Pain ED Provider: Parminder Way Dx/Rx/DC Orders Clinical Impression: Abdominal pain Instructions: Obstruction Intestinal Prescriptions: New ondansetron 4 mg tablet,disintegrating 4 mg PO Q8H PRN PRN (Reason: Nausea) Qty: 10 0RF No Action Dulcolax (magnesium hydroxide) 1,200 mg Tablet,Chewable 1,200 mg PO QHS hydrocodone-acetaminophen 5-325 mg tablet 1 tab PO Q4H PRN PRN (Reason: Pain) 3 Days Qty: 10 0RF hydrocodone-acetaminophen [hydrocodone-acetaminophen] 5-325 mg tablet 1 tab PO Q6H PRN PRN (Reason: Pain) 3 Days Qty: 10 0RF ondansetron [ondansetron] 4 mg tablet,disintegrating 8 mg PO Q8H PRN PRN (Reason: Nausea) Qty: 20 0RF hydrocodone-acetaminophen 5-325 mg tablet 1 tab PO Q6H PRN PRN (Reason: Pain) 3 Days Qty: 10 0RF Primary Care Provider: Mesfin Ramos Referrals: Mesfin Ramos, PA [Primary Care Provider] - Activity Restrictions/Additional Instructions: Thank you for trusting us with your care today! Please take Tylenol (2 pills, 650 mg), ibuprofen (2 pills, 400 mg) every 6 hours as needed for pain and fever control. Please take Zofran as needed for nausea and vomiting. Please return to the emergency department if your symptoms change or worsen. Specifically if you not have bowel movements for greater than 7 days. Specifically if you develop nausea vomiting cannot tolerate things by mouth Please follow with your primary care physician for further outpatient evaluation and management. Disposition Disposition: Home, Self Care
--- NOTE | 2022-08-10 09:38 | CT_ITS ---
STUDY: CT ABDOMEN AND PELVIS WITH CONTRAST - URINARY TRACT REASON FOR EXAM: Female, 41 years old. Lower abdominal pain RADIATION DOSAGE (If Supplied By Facility): CTDIvol = ( 15.00 ) mGy, DLP = ( 886.95 ) mGycm TECHNIQUE: IV 100mL Isovue-300 was administered. Transaxial images were obtained from the dome of the diaphragm to the symphysis pubis subsequent to intravenous contrast administration. Multiplanar coronal and sagittal images were reformatted. Individualized Dose Optimization Techniques Were Used For This CT. COMPARISON: March 10, 2022 and May 04 and June 10, 2022 FINDINGS: There is grossly stable bibasilar atelectasis and/or scarring, most pronounced within the left lower lobe. The visualized portions of the heart are within normal limits. There is a stable too small to characterize low-attenuation focus within the right hepatic lobe which may reflect a cyst or hemangioma. Normal gallbladder and extrahepatic biliary system. Normal spleen. Normal pancreas. Normal bilateral adrenal glands. Normal visualized stomach. There are anastomotic sutures within the distal small bowel. Proximal to the anastomosis there is a dilated segment of small bowel containing feculent material. Normal colon. There is non-visualization of the appendix. Normal abdominal aorta. No retroperitoneal adenopathy. Normal right kidney. Normal left kidney. Normal urinary bladder. Normal abdominal wall. Normal osseous structures. CT/Abdomen/Pelvis W IV Cont ONLY IMPRESSION: Findings suggestive of a focal small bowel obstruction proximal to a small bowel anastomosis. Electronically Signed: Lashay De La Cruz MD at 11:05 EDT ,
[2022-08-10 09:53] LABS: Absolute Lymphocyte Count 2.38 X10^3/uL (0.83-4.51); Absolute Neutrophil Count 4.2 X10^3/uL (2.0-7.7); Basophil# 0.06 X10^3/uL; Basophil% 0.8 % (0-1); Eosinophil# 0.18 X10^3/uL; Eosinophils% 2.5 % (0-5); Hematocrit 41.8 % (37-47); Hemoglobin 13.2 g/dL (12.0-15.0); Lymphocyte # 2.38 X10^3/ul (0.83-4.51); Lymphocyte % 32.7 % (19-41); Mean Corp Hgb Conc 31.6 g/dL (32-36); Mean Corpuscular Hgb 27.9 pg (27.0-32.0); Mean Corpuscular Volume 88.4 fL (81-99); Mean Platelet Vol. 9.7 fl (6.2-12.0); Monocyte# 0.47 X10^3/uL; Monocyte% 6.5 % (0-10); NRBC Flagged by Analyzer 0 % (0-5); Neutrophil # 4.15 X10^3/uL (2.7-7.7); Platelet Count 248 K/mm3 (150-450); RBC Distribution Width CV 14.1 % (11.6-14.6); RBC Distribution Width SD 45.5 fl (35.1-43.9); Red Blood Count 4.73 M/mm3 (4.2-5.4); White Blood Count 7.3 K/mm3 (4.4-11.0)
[2022-08-10] MEDS: Ondansetron 4 MG/2 ML Vial IV (10:00)
[2022-08-10] MEDS: 0.9% Normal Saline 1,000 ML 1000 ML IV (10:00)
[2022-08-10] MEDS: Ketorolac 15 MG/ML Vial IV (10:02)
[2022-08-10] MEDS: Morphine 4 MG/ML Syringe IV ×2 (10:03→13:57)
[2022-08-10 10:07] LABS: Anion Gap 5 (5-15); BUN 12 mg/dL (7-18); BUN/Creat Ratio 8.6 RATIO (10-20); Calcium,Total 9.3 mg/dL (8.5-10.1); Chloride 112 mmol/L (98-107); EST Glomerular Filtration Rate 44 mL/min (>60); Est Glom Filt Rate - Afr Amer 53 mL/min (>60); Glucose 85 mg/dL (74-106); Lipase 37 U/L (13-75); Potassium 4.2 mmol/L (3.5-5.1); Sodium Level 144 mmol/L (136-145)
[2022-08-10 10:56] LABS: Mucous, Urine 0 SEEN /hpf (<or=2+); Red Blood Cells-Urine 0 SEEN /hpf (0-5); White Blood Cells 0 SEEN /hpf (0-5)
[2022-08-10 11:01] LABS: Color, Urine Yellow (Yellow); Glucose, Dipstick Normal (Normal); Ketone-Dipstick Negative (Negative); Leukocyte Esterase-Dipstick Negative /ul (Negative); Nitrite-Dipstick Negative (Negative); Occult Blood-Urine Negative /ul (Negative); Protein-Dipstick Negative (Negative); Urine Bilirubin Dipstick Negative (Negative); Urine Clarity Sl. Cloudy (Clear); Urine Urobilinogen Normal (Normal)
[2022-08-10 11:06] LABS: Bacteria 1+ /hpf (None Seen); Squamous Epithelial Cells - UA 0-5 SEEN /hpf (5-10)
[2022-08-10 11:07] LABS: Internal QC Validated? YES +Cl - CLEAR BKGD; Pregnancy, Urine Negative Negative
[2022-08-10 12:00] VITALS: RESP 18
[2022-08-10 14:00] VITALS: BP 101/55; PULSE 46; RESP 18; O2SAT 100
--- NOTE | 2022-08-10 14:35 | RAD_ITS ---
PROCEDURE: SMALL BOWEL SERIES DATE OF EXAMINATION: August 10, 2022. INDICATION: Female, 41 years old. Possible small bowel obstruction. PHYSICIAN: Kali Luque M.D. TECHNIQUE: Radiographic and fluoroscopic images were taken of the small intestine following the ingestion of a mixture of 120 cc of water and under 20 cc of Gastrografin. COMPARISON: None. FINDINGS: A preliminary supine KUB was obtained. There is an unremarkable bowel gas pattern. Fecal material is present throughout the colon. Phleboliths are present within the pelvis. The lung bases are unremarkable. The osseous structures are normal. The patient orally ingested approximately 12 ounces of thin barium Normal visualized fundus, body, and antrum of the stomach. Normal duodenal bulb, C-loop, and proximal jejunum. Normal visualized mucosal folds of the jejunum and ileum. There are no demonstrated dilatations, strictures, or masses of the small intestine. There is no mass displacement of the loops of small intestine. There is a normal motor pattern with barium reaching the colon within approximately 60 minutes. Spot films under fluoroscopic observation demonstrated a normal terminal ileum and ileocecal valve. RAD/Small Bowel Series Only IMPRESSION: Normal small bowel series. Electronically Signed: Kali Luque MD at 15:48 EDT ,
[2022-08-10 16:05] VITALS: RESP 18
== END 2022-08-10 16:12 | disposition home or self-care (01) ==
PROVIDERS: Emergency Provider Emergency Medicine; PCP Physician Assistant; Visit Provider Emergency Medicine
DX: R10.817 Generalized abdominal tenderness (principal); M06.9 Rheumatoid arthritis, unspecified; F31.9 Bipolar disorder, unspecified; R11.2 Nausea with vomiting, unspecified; G89.29 Other chronic pain; E78.5 Hyperlipidemia, unspecified; E66.9 Obesity, unspecified; Z87.891 Personal history of nicotine dependence
CPT/HCPCS: 74177; 74250; 80048; 81001; 81025; 83690; 85025; 96361; 96374; 96375; 96376; 99283; J7030; Q9967; A4216; J2405

== ENCOUNTER 2022-10-06 08:56 | Emergency (ER) | payer MEDICAID, SELFPAY ==
[2022-10-06 08:57] VITALS: BP 133/82; PULSE 71; RESP 18; TEMP 36.6; O2SAT 98; BMI 35.7
--- NOTE | 2022-10-06 09:11 | ED.VIS.GI ---
HPI HPI - GI History of Present Illness Chief Complaint: Abd Pain Informant: patient Narrative Narrative: Pain left side abdomen for 2 weeks. Worsened today. History of multiple abdominal surgeries. States feels similar to multiple bowel obstructions in the past. She does have bowel movements had 4 loose stools today. No nausea or vomiting no fevers. Last bowel obstruction was similar presentation 3 years ago. She states had to have lysis of adhesions then. She has had reported 7 surgeries to her abdomen in the past. She has had tubal pregnancies, she reports required partial colectomy's of both her small bowel and large bowel. She has had multiple lysis of adhesions. Prior to symptoms had dysuria saw her PCP just finished antibiotics. States does still have mild dysuria. Multiple allergies however tolerated morphine and Zofran in the past. Prior similar symptoms: Yes PFSH PFSH Medical History Bipolar disorder Bowel obstruction Cardiac arrest due to respiratory disorder Chronic pain Former smoker Former tobacco use History of borderline diabetes mellitus History of multiple abdominal surgeries History of small bowel obstruction HLD (hyperlipidemia) Iron deficiency anemia Migraines Obesity Rheumatoid arthritis SBO (small bowel obstruction) Sleep apnea Home Medications magnesium hydroxide 1,200 mg chewable tablet (Dulcolax (magnesium hydroxide)) 1,200 mg PO QHS STOOL 03/10/22 [History Last Taken 03/09/22] hydrocodone-acetaminophen 5-325mg 5mg-325mg 1 tab PO Q4H PRN PRN Pain 3 days #10 TABLETS 06/02/22 [Rx Last Taken Unknown] hydrocodone-acetaminophen 5-325mg 5mg-325mg 1 tab PO Q6H PRN PRN Pain 3 days #10 TABLETS 06/10/22 [Rx Last Taken Unknown] ondansetron 4 mg disintegrating tablet 8 mg PO Q8H PRN PRN Nausea #20 tabs 06/10/22 [Rx Last Taken Unknown] hydrocodone-acetaminophen 5-325mg 5mg-325mg 1 tab PO Q6H PRN PRN Pain 3 days #10 TABLETS 08/06/22 [Rx Last Taken Unknown] ondansetron 4 mg disintegrating tablet 4 mg PO Q8H PRN PRN Nausea #10 tabs 08/10/22 [Rx Last Taken Unknown] cefuroxime axetil 500 mg tablet 500 mg PO BID #14 tabs 10/06/22 [Rx Last Taken Unknown] hydrocodone-acetaminophen 5-325mg 5mg-325mg 1 tab PO Q6H PRN PRN Pain 3 days #12 TABLETS 10/06/22 [Rx Last Taken Unknown] Allergy/AdvReac Type Severity Reaction Status Date / Time hydromorphone HCl Allergy Severe Anaphylaxis Verified 10/06/22 08:59 [From Dilaudid] aspirin [From Percodan] Allergy Intermediate Swelling Verified 10/06/22 08:59 oxycodone terephthalate Allergy Intermediate Swelling Verified 10/06/22 08:59 [From Percodan] amoxicillin Allergy Hives Verified 10/06/22 08:59 ampicillin Allergy Swelling Verified 10/06/22 08:59 azithromycin Allergy Other Verified 10/06/22 08:59 erythromycin base Allergy Hives Verified 10/06/22 08:59 fentanyl Allergy Anaphylaxis Verified 10/06/22 08:59 orphenadrine [From Norflex] Allergy Anaphylaxis Verified 10/06/22 08:59 oxycodone HCl [From Percocet] Allergy Anaphylaxis Verified 10/06/22 08:59 propoxyphene napsylate Allergy Other Verified 10/06/22 08:59 [From Darvocet-N] Sulfa (Sulfonamide Allergy Other Verified 10/06/22 08:59 Antibiotics) tramadol Allergy Hives Verified 10/06/22 08:59 Family History Father Cancer Hx Leukemia. Diabetes CVA (cerebral vascular accident) Mother Cancer Surgical History H/O: hysterectomy History of appendectomy History of bowel resection History of cholecystectomy S/P cholecystectomy S/P exploratory laparotomy Social History household members: family Smoking Status: Former smoker alcohol intake: never substance use type: does not use ROS ROS ED Constitutional Constitutional ED: Denies chills, fever(s) or sweats Eyes Eyes: Denies change in vision ENT ENT ED: Denies dysphagia or sore throat Cardiovascular Cardiovascular: Denies chest pain, leg edema, palpitations or racing heartbeat Respiratory/Chest Respiratory/Chest: Denies cough, dyspnea or dyspnea on exertion Gastrointestinal Gastrointestinal: Reports abdominal pain and diarrhea; Denies nausea or vomiting Genitourinary Genitourinary ED: Reports dysuria; Denies hematuria or urinary frequency Musculoskeletal Musculoskeletal: Denies back pain, extremity pain or neck pain Integumentary Denies rash or wounds Neurologic Neurologic: Denies headache(s), paresthesias or weakness EXAM Physical Exam Const Vital Signs: 10/06/22 08:57 10/06/22 13:15 10/06/22 13:32 Temperature 97.9 F Temperature Source Temporal Pulse Rate 71 59 L Respiratory Rate 18 18 Blood Pressure 133/82 H 88/64 L 98/65 Blood Pressure Mean 99 72 76 Pulse Ox 98 99 Oxygen Delivery Method Room Air Room Air Positive well nourished and well developed Constitutional Narrative: Nontoxic slightly uncomfortable General Appearance ED: well developed HEENT Reports moist mucous membranes normocephalic and atraumatic Eyes PERRL, EOMs intact bilaterally and conjunctivae normal General Eye ED: Yes normal appearance of both eyes Neck no lymphadenopathy and supple General: Negative for tenderness Chest Wall Chest: Negative for tenderness Resp normal respiratory effort and normal air movement Effort and Inspection: symmetric chest movement; Negative for respiratory distress Cardio regular rate, regular rhythm and no murmurs Peripheral Pulses: pulses 2+ throughout GI normal to inspection, nondistended, normoactive bowel sounds GI Narrative: Hypoactive bowel sounds tender left lower quadrant Palpation: guarding and rebound tenderness present Back/Spine no CVA tenderness and no thoracic nor lumbar tenderness Extremity normal to inspection General Extremety ED: Negative for edema or tenderness General Extremity: Negative for edema Neuro oriented x3 and no sensory deficits noted Sensorium / Orientation: awake and alert Skin no rashes or lesions noted and no wounds MDM MDM MDM Narrative Medical decision making narrative: Interventions / MDM: Differential diagnosis: Small bowel obstruction, diverticulitis, kidney stones, urinary tract infection Diagnosis considered but do not suspect: N/A My EKG interpretation: N/A Imaging independently reviewed and interpreted by myself: CT abdomen pelvis IV contrast: Nonspecific loops of bowel similar to previous, no bowel obstruction, is also read by radiology. Reported thickened decompressed distal colon and not likely colitis. External documents reviewed: N/A Test considered but not ordered:N/A ED course: Patient uncomfortable similar symptoms bowel obstruction. Work-up was initiated. Left lower quadrant pain., Labs are all stable. Initial return for positive screening serum quant sent was 6. However later discussion with the patient she has had a hysterectomy. She is treated morphine Zofran fluids. CT scan nonobstructive bowel findings. Urine positive for UTI. Culture sent she is symptomatic. Re-evaluation: stable, mild pain in left lower abdomen much more improved compared to previous. She has been having bowel movements. She is covered Rocephin IV. She however rated [place] on the which was written for her. She will take antibiotics. Return precautions. Disposition discussed with patient/family/significant other: Patient Case discussed with consulting clinician: N/A This note was generated with [employer] dictation software. It may contain incorrect words, spelling, and punctuation that were not noted in checking the note before signing. Lab Data Attestation: I reviewed the patient's lab results. Labs: Laboratory Results - last 24 hr 10/06/22 10/06/22 10/06/22 09:20 09:20 09:20 WBC 6.1 RBC 4.20 Hgb 12.0 Hct 37.1 MCV 88.3 MCH 28.6 MCHC 32.3 RDW Std Deviation 45.5 H RDW Coeff of [place] 14.2 Plt Count 193 MPV 9.7 Immature Gran % (Auto) 0.300 Neut % (Auto) 59.0 Lymph % (Auto) 29.6 [place] % (Auto) 7.5 Eos % (Auto) 2.6 Baso % (Auto) 1.0 Absolute Neuts (auto) 3.6 Absolute Lymphs (auto) 1.81 Nucleated RBC % 0 Sodium 146 H Potassium 4.0 Chloride 114 H Carbon Dioxide 25.0 Anion Gap 7 BUN 16 Creatinine 1.34 H Estim Creat Clear Calc 44.78 Est GFR (MDRD) Af Amer 56 L Est GFR (MDRD) Non-Af 46 L BUN/Creatinine Ratio 11.9 Glucose 103 Calcium 9.2 Total Bilirubin 0.30 AST 20 ALT 34 Alkaline Phosphatase 88 Total Protein 6.1 L Albumin 3.0 L Globulin 3.1 Albumin/Globulin Ratio 1.0 Lipase 40 HCG, Quant Serum , Qual P Urine Color Urine Clarity Urine pH Ur Specific [place] Urine Protein Urine Glucose (UA) Urine Ketones Urine Occult Blood Urine Nitrite Urine Bilirubin Urine Urobilinogen Ur Leukocyte Esterase Urine RBC Urine WBC Ur Squamous Epith Cells Urine Bacteria Hyaline Casts Urine Mucus 10/06/22 10/06/22 10:01 10:25 WBC RBC Hgb Hct MCV MCH MCHC RDW Std Deviation RDW Coeff of [place] Plt Count MPV Immature Gran % (Auto) Neut % (Auto) Lymph % (Auto) [place] % (Auto) Eos % (Auto) Baso % (Auto) Absolute Neuts (auto) Absolute Lymphs (auto) Nucleated RBC % Sodium Potassium Chloride Carbon Dioxide Anion Gap BUN Creatinine Estim Creat Clear Calc Est GFR (MDRD) Af Amer Est GFR (MDRD) Non-Af BUN/Creatinine Ratio Glucose Calcium Total Bilirubin AST ALT Alkaline Phosphatase Total Protein Albumin Globulin Albumin/Globulin Ratio Lipase HCG, Quant 6 H Serum , Qual Urine Color Yellow Urine Clarity Clear Urine pH 6.0 Ur Specific [place] 1.025 Urine Protein 15 H Urine Glucose (UA) Normal Urine Ketones Negative Urine Occult Blood 10 H Urine Nitrite Positive H Urine Bilirubin Negative Urine Urobilinogen Normal Ur Leukocyte Esterase 25 H Urine RBC 0 SEEN Urine WBC 0 SEEN Ur Squamous Epith Cells 0-5 SEEN Urine Bacteria 1+ Hyaline Casts 0-5 SEEN Urine Mucus 0 SEEN Radiography Diagnostic Testing: Clinical Impression(s) from Imaging Studies Abdomen/Pelvis CT 10/06/22 10:10 IMPRESSION: 1. Postoperative changes in the mid small bowel loop with focally dilated bowel loop unchanged prior exam. 2. No new focal acute inflammatory process. Electronically Signed: Junior Mckee MD at 10:52 EDT , Discharge Plan Triage Chief Complaint: Abd Pain ED Provider: Keven Mcgee Dx/Rx/DC Orders Clinical Impression: Nonspecific abdominal pain, UTI (urinary tract infection) Instructions: Abdominal Pain, Urinary Tract Infections in Women Prescriptions: New hydrocodone-acetaminophen [hydrocodone-acetaminophen] 5-325 mg tablet 1 tab PO Q6H PRN PRN (Reason: Pain) 3 Days Qty: 12 0RF cefuroxime axetil 500 mg tablet 500 mg PO BID Qty: 14 0RF No Action Dulcolax (magnesium hydroxide) 1,200 mg Tablet,Chewable 1,200 mg PO QHS hydrocodone-acetaminophen 5-325 mg tablet 1 tab PO Q4H PRN PRN (Reason: Pain) 3 Days Qty: 10 0RF hydrocodone-acetaminophen [hydrocodone-acetaminophen] 5-325 mg tablet 1 tab PO Q6H PRN PRN (Reason: Pain) 3 Days Qty: 10 0RF ondansetron [ondansetron] 4 mg tablet,disintegrating 8 mg PO Q8H PRN PRN (Reason: Nausea) Qty: 20 0RF hydrocodone-acetaminophen 5-325 mg tablet 1 tab PO Q6H PRN PRN (Reason: Pain) 3 Days Qty: 10 0RF ondansetron 4 mg tablet,disintegrating 4 mg PO Q8H PRN PRN (Reason: Nausea) Qty: 10 0RF Stand Alone Forms: ED Work / School Excuse Primary Care Provider: Mesfin Ramos Referrals: Mesfin Ramos PA [Primary Care Provider] - 3-5 Days Activity Restrictions/Additional Instructions: CT scan negative. urine with persistent infection. Take antibiotic as prescribed culture pending. Take medicines for pain as needed. Return if worsening symptoms. Disposition Disposition: Home, Self Care Discharge Date/Time: 10/06/22 13:54
[2022-10-06 09:26] LABS: Absolute Lymphocyte Count 1.81 X10^3/uL (0.83-4.51); Absolute Neutrophil Count 3.6 X10^3/uL (2.0-7.7); Basophil# 0.06 X10^3/uL; Eosinophil# 0.16 X10^3/uL; Eosinophils% 2.6 % (0-5); Hematocrit 37.1 % (37-47); Lymphocyte # 1.81 X10^3/ul (0.83-4.51); Lymphocyte % 29.6 % (19-41); Mean Corp Hgb Conc 32.3 g/dL (32-36); Mean Corpuscular Hgb 28.6 pg (27.0-32.0); Mean Corpuscular Volume 88.3 fL (81-99); Mean Platelet Vol. 9.7 fl (6.2-12.0); Monocyte# 0.46 X10^3/uL; Monocyte% 7.5 % (0-10); NRBC Flagged by Analyzer 0 % (0-5); Platelet Count 193 K/mm3 (150-450); RBC Distribution Width CV 14.2 % (11.6-14.6); RBC Distribution Width SD 45.5 fl (35.1-43.9); White Blood Count 6.1 K/mm3 (4.4-11.0)
[2022-10-06 09:40] LABS: Internal QC Validated? YES +Cl - CLEAR BKGD
[2022-10-06 09:41] LABS: AST(SGOT) 20 U/L (15-37); Alanine Aminotransfer ALT/SGPT 34 U/L (13-56); Alkaline Phosphatase 88 U/L (45-117); Anion Gap 7 (5-15); BUN 16 mg/dL (7-18); BUN/Creat Ratio 11.9 RATIO (10-20); Calcium,Total 9.2 mg/dL (8.5-10.1); Chloride 114 mmol/L (98-107); Creatinine, Serum 1.34 mg/dL (0.55-1.02); EST Glomerular Filtration Rate 46 mL/min (>60); Est Glom Filt Rate - Afr Amer 56 mL/min (>60); Estimated Creatinine Clearance 44.78 ml/min; Globulin 3.1 g/dL (2.2-4.2); Glucose 103 mg/dL (74-106); Lipase 40 U/L (13-75); Protein, Total 6.1 g/dL (6.4-8.2); Sodium Level 146 mmol/L (136-145)
[2022-10-06 09:42] LABS: Pregnancy, Serum, hCG Quali. P Negative
[2022-10-06 10:08] LABS: Mucous, Urine 0 SEEN /hpf (<or=2+); Red Blood Cells-Urine 0 SEEN /hpf (0-5); White Blood Cells 0 SEEN /hpf (0-5)
[2022-10-06 10:10] LABS: Color, Urine Yellow (Yellow); Glucose, Dipstick Normal (Normal); Ketone-Dipstick Negative (Negative); Leukocyte Esterase-Dipstick 25 /ul (Negative); Nitrite-Dipstick Positive (Negative); Occult Blood-Urine 10 /ul (Negative); Protein-Dipstick 15 mg/dl (Negative); Specific Gravity, Urine 1.025 (1.002-1.030); Urine Bilirubin Dipstick Negative (Negative); Urine Clarity Clear (Clear); Urine Urobilinogen Normal (Normal)
--- NOTE | 2022-10-06 10:10 | CT_ITS ---
STUDY: CT ABDOMEN AND PELVIS WITH CONTRAST - URINARY TRACT REASON FOR EXAM: Female, 42 years old. LLQ pain -- hx SBO similar RADIATION DOSAGE (If Supplied By Facility): CTDIvol = ( 16.42 ) mGy, DLP = ( 1095.33 ) mGycm TECHNIQUE: IV 100mL Isovue-370 was administered. Transaxial images were obtained from the dome of the diaphragm to the symphysis pubis in the arterial, nephrographic and excretory phases. Multiplanar coronal and sagittal images were reformatted. Individualized Dose Optimization Techniques Were Used For This CT. COMPARISON: 08/10/2022. FINDINGS: Atelectatic changes or scarring in the lower lungs. The visualized portions of the heart are within normal limits. Stable 4 mm low-density lesion in the right lobe of the liver could represent small cyst for which no further follow-up exams is needed. Contracted gallbladder without evidence of gallstones. Normal spleen. Normal pancreas. Normal bilateral adrenal glands. Normal visualized stomach. Normal caliber proximal small bowel loops. Focally dilated bowel loop with recanalized contents in the mid abdomen adjacent to anastomosis essentially unchanged since the prior exam. Thickening of the sigmoid and descending colon likely due to underdistention. Colitis is less likely. The appendix is not visualized. Normal abdominal aorta. No retroperitoneal adenopathy. Normal right kidney. Normal left kidney. Normal urinary bladder. Normal abdominal wall. Normal osseous structures. CT/Abdomen/Pelvis W IV Cont ONLY IMPRESSION: 1. Postoperative changes in the mid small bowel loop with focally dilated bowel loop unchanged prior exam. 2. No new focal acute inflammatory process. Electronically Signed: Junior Mckee MD at 10:52 EDT ,
[2022-10-06 10:24] LABS: Bacteria 1+ /hpf (None Seen); Hyaline Cast 0-5 SEEN /lpf (0-5); Squamous Epithelial Cells - UA 0-5 SEEN /hpf (5-10)
[2022-10-06] MEDS: Ondansetron 4 MG/2 ML Vial IV (10:32)
[2022-10-06] MEDS: 0.9% Normal Saline 1,000 ML 125 ML IV (10:32)
[2022-10-06] MEDS: Morphine 4 MG/ML Syringe IV (10:32)
[2022-10-06 10:54] LABS: hCG Titer Quant., Serum 6 mIU/mL (1-3)
[2022-10-06] MEDS: Ceftriaxone 1 GM/50 ML BAG IV (12:23)
[2022-10-06 13:15] VITALS: BP 88/64; PULSE 59; RESP 18; O2SAT 99
[2022-10-06 13:32] VITALS: BP 98/65
== END 2022-10-06 13:54 | disposition home or self-care (01) ==
PROVIDERS: Emergency Provider Emergency Medicine; PCP Physician Assistant; Visit Provider Emergency Medicine
DX: N39.0 Urinary tract infection, site not specified (principal); E78.5 Hyperlipidemia, unspecified; R10.9 Unspecified abdominal pain; Z87.891 Personal history of nicotine dependence
CPT/HCPCS: 74177; 80053; 81001; 83690; 84702; 84703; 85025; 87086; 87088; 87186; 96361; 96365; 96375; 99283; J7030; Q9967; A4216; J2405

== ENCOUNTER 2022-11-11 18:59 | Emergency (ER) | payer MEDICAID, SELFPAY ==
[2022-11-11 18:59] VITALS: BP 106/76; PULSE 74; RESP 18; TEMP 35.4; O2SAT 97; BMI 36.2
--- NOTE | 2022-11-11 20:10 | EDS_ITS ---
HPI History of Present Illness Chief Complaint: Upper Extremity Injury Narrative Narrative: Patient complains of right shoulder pain. Patient states she has had this before. Now and then it acts up. She does do moderate physical activity. 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 She states for the last couple days she has had some pain in the top of her right shoulder. Its not chest pain or shortness of breath. If she does not move it it does not hurt much. But when she moves it it hurts. She cannot lift it overhead. She denies fevers or chills IV drug use or recent infections. No numbness tingling or weakness. No coughing. No acute trauma although she did have trauma to it with a fall many months ago. [facility] Medical History Bipolar disorder Bowel obstruction Cardiac arrest due to respiratory disorder Chronic pain Former smoker Former tobacco use History of borderline diabetes mellitus History of multiple abdominal surgeries History of small bowel obstruction HLD (hyperlipidemia) Iron deficiency anemia Migraines Obesity Rheumatoid arthritis SBO (small bowel obstruction) Sleep apnea Home Medications magnesium hydroxide 1,200 mg chewable tablet (Dulcolax (magnesium hydroxide)) 1,200 mg PO QHS STOOL 03/10/22 [History Last Taken 03/09/22] hydrocodone-acetaminophen 5-325mg 5mg-325mg 1 tab PO Q4H PRN PRN Pain 3 days #10 TABLETS 06/02/22 [Rx Last Taken Unknown] hydrocodone-acetaminophen 5-325mg 5mg-325mg 1 tab PO Q6H PRN PRN Pain 3 days #10 TABLETS 06/10/22 [Rx Last Taken Unknown] ondansetron 4 mg disintegrating tablet 8 mg (2 x 4 mg) PO Q8H PRN PRN Nausea #20 tabs 06/10/22 [Rx Last Taken Unknown] hydrocodone-acetaminophen 5-325mg 5mg-325mg 1 tab PO Q6H PRN PRN Pain 3 days #10 TABLETS 08/06/22 [Rx Last Taken Unknown] ondansetron 4 mg disintegrating tablet 4 mg PO Q8H PRN PRN Nausea #10 tabs 08/10/22 [Rx Last Taken Unknown] cefuroxime axetil 500 mg tablet 500 mg PO BID #14 tabs 10/06/22 [Rx Last Taken Unknown] hydrocodone-acetaminophen 5-325mg 5mg-325mg 1 tab PO Q6H PRN PRN Pain 3 days #12 TABLETS 10/06/22 [Rx Last Taken Unknown] hydrocodone-acetaminophen 5-325mg 5mg-325mg 1 tab PO Q6H PRN PRN Pain 3 days #10 TABLETS 11/11/22 [Rx Last Taken Unknown] Allergy/AdvReac Type Severity Reaction Status Date / Time hydromorphone HCl Allergy Severe Anaphylaxis Verified 11/11/22 19:02 [From Dilaudid] aspirin [From Percodan] Allergy Intermediate Swelling Verified 11/11/22 19:02 oxycodone terephthalate Allergy Intermediate Swelling Verified 11/11/22 19:02 [From Percodan] amoxicillin Allergy Hives Verified 11/11/22 19:02 ampicillin Allergy Swelling Verified 11/11/22 19:02 azithromycin Allergy Other Verified 11/11/22 19:02 erythromycin base Allergy Hives Verified 11/11/22 19:02 fentanyl Allergy Anaphylaxis Verified 11/11/22 19:02 orphenadrine [From Norflex] Allergy Anaphylaxis Verified 11/11/22 19:02 oxycodone HCl [From Percocet] Allergy Anaphylaxis Verified 11/11/22 19:02 propoxyphene napsylate Allergy Other Verified 11/11/22 19:02 [From Darvocet-N] Sulfa (Sulfonamide Allergy Other Verified 11/11/22 19:02 Antibiotics) tramadol Allergy Hives Verified 11/11/22 19:02 Family History Father Cancer Hx Leukemia. Diabetes CVA (cerebral vascular accident) Mother Cancer Surgical History H/O: hysterectomy History of appendectomy History of bowel resection History of cholecystectomy S/P cholecystectomy S/P exploratory laparotomy Social History household members: family Smoking Status: Former smoker alcohol intake: never substance use type: does not use ROS ROS ED Constitutional Constitutional ED: Denies chills, fever(s), subjective, sweats or weight loss Eyes Eyes: Denies change in vision ENT ENT ED: Denies sore throat Cardiovascular Cardiovascular: Denies chest pain, palpitations or racing heartbeat Respiratory/Chest Respiratory/Chest: Denies cough, dyspnea or dyspnea on exertion Gastrointestinal Gastrointestinal: Denies nausea or vomiting Musculoskeletal Musculoskeletal: Reports other Details: See history of present illness ; Denies back pain, myalgias or neck pain Integumentary Denies abscess, Abrasions or rash Neurologic Neurologic: Denies paresthesias or weakness Hematologic/Lymphatic Hematologic/Lymphatic: Denies easy bleeding, easy bruising or lymphadenopathy Allergic/Immunologic Allergic/Immunologic ED: Denies urticaria EXAM Physical Exam Narrative Exam Narrative: Patient is awake alert talking on the phone as I walk in in no acute distress. HEENT shows no sign of trauma. No notable dental infection or abscess. Neck is supple. She actually has good range of motion. No tenderness. Chest is clear bilaterally. She can take good deep breaths. Saturations are normal at 97% on room air showing no hypoxia. Heart is regular. No murmur gallop rub or muffled tones. Peripheral pulses including the right upper extremity are normal. Abdomen is benign. Extremities show no erythema or warmth or swelling anywhere around the shoulder. She has some tenderness at the AC joint but also laterally over the deltoid. No deformity. I can move it passively but any active motion or resisted motion hurts. There is no crepitance. Const Vital Signs: 11/11/22 18:59 Temperature 95.7 F L Temperature Source Temporal Pulse Rate 74 Respiratory Rate 18 Blood Pressure 106/76 Blood Pressure Mean 86 Pulse Ox 97 Oxygen Delivery Method Room Air MDM MDM MDM Narrative Medical decision making narrative: Patient has no recent infections antibiotic use or IV drug abuse. She has had this for 2 or so days. No fevers or chills. I do not think this is a septic joint I do not think it needs aspiration. I do not think blood work is going to give any benefit. I do not think x-rays are needed because there is no acute traumatic injury. Her only trauma was many months ago and has been evaluated in the past. This patient has had this in the past. I think this is a recurrent issue. It is motion related. I think rest ice and medicine for pain will get this better. We discussed reasons to return Discharge Plan Triage Chief Complaint: Upper Extremity Injury ED Provider: Kam Lyles Dx/Rx/DC Orders Clinical Impression: Acute pain of right shoulder Instructions: ED Shoulder Pain, Uncertain Cause Prescriptions: New hydrocodone-acetaminophen [hydrocodone-acetaminophen] 5-325 mg tablet 1 tab PO Q6H PRN PRN (Reason: Pain) 3 Days Qty: 10 0RF No Action Dulcolax (magnesium hydroxide) 1,200 mg Tablet,Chewable 1,200 mg PO QHS hydrocodone-acetaminophen 5-325 mg tablet 1 tab PO Q4H PRN PRN (Reason: Pain) 3 Days Qty: 10 0RF hydrocodone-acetaminophen [hydrocodone-acetaminophen] 5-325 mg tablet 1 tab PO Q6H PRN PRN (Reason: Pain) 3 Days Qty: 10 0RF ondansetron [ondansetron] 4 mg tablet,disintegrating 8 mg PO Q8H PRN PRN (Reason: Nausea) Qty: 20 0RF hydrocodone-acetaminophen 5-325 mg tablet 1 tab PO Q6H PRN PRN (Reason: Pain) 3 Days Qty: 10 0RF ondansetron 4 mg tablet,disintegrating 4 mg PO Q8H PRN PRN (Reason: Nausea) Qty: 10 0RF hydrocodone-acetaminophen [hydrocodone-acetaminophen] 5-325 mg tablet 1 tab PO Q6H PRN PRN (Reason: Pain) 3 Days Qty: 12 0RF cefuroxime axetil 500 mg tablet 500 mg PO BID Qty: 14 0RF Stand Alone Forms: ED Work / School Excuse Primary Care Provider: Mesfin Ramos Referrals: Mesfin Ramos, PA [Primary Care Provider] - 3-5 Days if not improving Disposition Disposition: Home, Self Care Discharge Date/Time: 11/11/22 20:30
[2022-11-11] MEDS: HYDROcodone Bitartrate/Apap 5/325 Tablet PO (20:26)
== END 2022-11-11 20:30 | disposition home or self-care (01) ==
LOC: ED 20:17
PROVIDERS: Emergency Provider Emergency Medicine; PCP Physician Assistant; Visit Provider Emergency Medicine
DX: M25.511 Pain in right shoulder (principal); M06.9 Rheumatoid arthritis, unspecified; E78.5 Hyperlipidemia, unspecified; Z87.891 Personal history of nicotine dependence
CPT/HCPCS: 99282

== ENCOUNTER 2023-02-19 16:51 | Emergency (ER) | payer MEDICAID, SELFPAY ==
[2023-02-19 16:52] VITALS: BP 114/76; PULSE 71; RESP 14; TEMP 36; O2SAT 96; BMI 37.0
--- NOTE | 2023-02-19 17:40 | RAD_ITS ---
STUDY: X-RAY - LEFT ANKLE REASON FOR EXAM: Female, 42 years old. FALL TECHNIQUE: 3 view(s) of the ankle. COMPARISON: 09/23/2015 FINDINGS: Normal visualized distal tibia and fibula. Normal medial and lateral malleoli. Normal tibiotalar articulation and ankle mortise. Normal visualized talus and calcaneus. Small plantar and posterior calcaneal enthesophytes. The visualized subtalar, talonavicular, calcaneocuboid and tarsal articulations are normal. Diffuse soft tissue swelling. RAD/Ankle min 3 Views IMPRESSION: No acute fracture or dislocation. Diffuse soft tissue swelling. Electronically Signed: Gabriel Johnson MD at 18:07 EST ,
--- NOTE | 2023-02-19 20:11 | EDS_ITS ---
HPI History of Present Illness HPI Narrative: Patient presents with left ankle injury that occurred 3 days ago. Patient states she tripped and fell initially. Patient states she was then walking down some steps and fell down the flight of steps. Patient states her pain is aching. Patient states it is worse with movement. Patient states it is better with rest. Patient denies any paresthesias or weakness. Patient denies any head injury or loss of consciousness. Patient denies any other injuries. Patie nt denies any pain over her fifth metatarsal or proximal fibula. Chief Complaint: Lower Extremity Injury Informant: patient Occured/Mechanism Mechanism/Context: Yes fall Onset/Context/Timing Onset: Days (3 days ago) Context: Sudden Onset Timing: Continuous Quality of Pain: Aching Location: Left ankle Worsened by: Movement Relieved by: Rest Associated Symptoms Associated Symptoms: Negative for Parasthesia, Weakness or Loss of Funtion PFSH PFS Medical History Bipolar disorder Bowel obstruction Cardiac arrest due to respiratory disorder Chronic pain Former smoker Former tobacco use History of borderline diabetes mellitus History of multiple abdominal surgeries History of small bowel obstruction HLD (hyperlipidemia) Iron deficiency anemia Migraines Obesity Rheumatoid arthritis SBO (small bowel obstruction) Sleep apnea Home Medications magnesium hydroxide 1,200 mg chewable tablet (Dulcolax (magnesium hydroxide)) 1,200 mg PO QHS STOOL 03/10/22 [History Last Taken 03/09/22] hydrocodone-acetaminophen 5-325mg 5mg-325mg 1 tab PO Q4H PRN PRN Pain 3 days #10 TABLETS 06/02/22 [Rx Last Taken Unknown] hydrocodone-acetaminophen 5-325mg 5mg-325mg 1 tab PO Q6H PRN PRN Pain 3 days #10 TABLETS 06/10/22 [Rx Last Taken Unknown] ondansetron 4 mg disintegrating tablet 8 mg (2 x 4 mg) PO Q8H PRN PRN Nausea #20 tabs 06/10/22 [Rx Last Taken Unknown] hydrocodone-acetaminophen 5-325mg 5mg-325mg 1 tab PO Q6H PRN PRN Pain 3 days #10 TABLETS 08/06/22 [Rx Last Taken Unknown] ondansetron 4 mg disintegrating tablet 4 mg PO Q8H PRN PRN Nausea #10 tabs 08/10/22 [Rx Last Taken Unknown] cefuroxime axetil 500 mg tablet 500 mg PO BID #14 tabs 10/06/22 [Rx Last Taken Unknown] hydrocodone-acetaminophen 5-325mg 5mg-325mg 1 tab PO Q6H PRN PRN Pain 3 days #12 TABLETS 10/06/22 [Rx Last Taken Unknown] hydrocodone-acetaminophen 5-325mg 5mg-325mg 1 tab PO Q6H PRN PRN Pain 3 days #10 TABLETS 11/11/22 [Rx Last Taken Unknown] Allergy/AdvReac Type Severity Reaction Status Date / Time hydromorphone HCl Allergy Severe Anaphylaxis Verified 02/19/23 16:51 [From Dilaudid] aspirin [From Percodan] Allergy Intermediate Swelling Verified 02/19/23 16:51 oxycodone terephthalate Allergy Intermediate Swelling Verified 02/19/23 16:51 [From Percodan] amoxicillin Allergy Hives Verified 02/19/23 16:51 ampicillin Allergy Swelling Verified 02/19/23 16:51 azithromycin Allergy Other Verified 02/19/23 16:51 erythromycin base Allergy Hives Verified 02/19/23 16:51 fentanyl Allergy Anaphylaxis Verified 02/19/23 16:51 orphenadrine [From Norflex] Allergy Anaphylaxis Verified 02/19/23 16:51 oxycodone HCl [From Percocet] Allergy Anaphylaxis Verified 02/19/23 16:51 propoxyphene napsylate Allergy Other Verified 02/19/23 16:51 [From Darvocet-N] Sulfa (Sulfonamide Allergy Other Verified 02/19/23 16:51 Antibiotics) tramadol Allergy Hives Verified 02/19/23 16:51 Family History Father Cancer Hx Leukemia. Diabetes CVA (cerebral vascular accident) Mother Cancer Surgical History H/O: hysterectomy History of appendectomy History of bowel resection History of cholecystectomy S/P cholecystectomy S/P exploratory laparotomy Social History household members: family Smoking Status: Former smoker alcohol intake: never substance use type: does not use ROS ROS ED Constitutional Constitutional ED: Denies chills or fever(s) Eyes Eyes: Denies blurry vision or change in vision ENT ENT ED: Denies rhinorrhea or sore throat Cardiovascular Cardiovascular: Denies chest pain or palpitations Respiratory/Chest Respiratory/Chest: Denies cough or dyspnea Gastrointestinal Gastrointestinal: Denies nausea or vomiting Genitourinary Genitourinary ED: Denies dysuria or hematuria Musculoskeletal Musculoskeletal: Reports neck pain; Denies back pain Integumentary Denies abscess or rash Neurologic Neurologic: Denies headache(s) or weakness Allergic/Immunologic Allergic/Immunologic ED: Denies mouth swelling or urticaria EXAM Physical Exam Const Vital Signs: 02/19/23 16:52 Temperature 96.8 F L Temperature Source Temporal Pulse Rate 71 Respiratory Rate 14 Blood Pressure 114/76 Blood Pressure Mean 88 Pulse Ox 96 Oxygen Delivery Method Room Air Positive well nourished, well developed and obese General Appearance ED: well developed and NAD Nutritional Appearance: obese HEENT Reports moist mucous membranes Neck full ROM and supple Extremity Extremity Narrative: There is tenderness and edema over the lateral aspect of the left ankle. There is no bony crepitance or step-off. There is no deformity noted. There is no tenderness over the fifth metatarsal. There is no tenderness over the proximal fibula. Pedal pulses are equal bilaterally. Sensation was intact to light touch in all digits. Capillary refill was less than 2 seconds in all digits. Neuro oriented x3, CN's II-XII intact bilaterally, moves all extremities and no sensory deficits noted Sensorium / Orientation: alert Motor Exam: strength 5/5 throughout Psych mental status grossly normal MDM MDM MDM Narrative Medical decision making narrative: Differential diagnosis includes ankle sprain, fracture, and contusion. X-rays of the left ankle will be obtained to assess for fracture. Radiography Diagnostic Testing: Clinical Impression(s) from Imaging Studies Ankle X-Ray 02/19/23 17:40 IMPRESSION: No acute fracture or dislocation. Diffuse soft tissue swelling. Electronically Signed: Gabriel Johnson MD at 18:07 EST , X-rays of the left ankle were obtained. There are 3 views. On my independent interpretation, there is no acute fracture. There is no dislocation. There is diffuse soft tissue swelling. Radiologist also interpreted the x-rays and agrees. Treatment and Re-Evaluation Narrative: Patient was advised of her findings. Patient was instructed to ice and elevate the left ankle. Patient was given an Aircast. Patient was instructed to take T ylenol or ibuprofen as needed for pain. Patient was instructed to follow-up with her primary care physician in 5 to 7 days. Patient understood and was agreeable with the plan. All questions were answered. Discharge Plan Triage Chief Complaint: Lower Extremity Injury ED Provider: Romario Bates Dx/Rx/DC Orders Clinical Impression: Left ankle sprain, Obesity (BMI 30-39.9) Instructions: ED Ankle Sprain (Adult) Prescriptions: No Action Dulcolax (magnesium hydroxide) 1,200 mg Tablet,Chewable 1,200 mg PO QHS hydrocodone-acetaminophen 5-325 mg tablet 1 tab PO Q4H PRN PRN (Reason: Pain) 3 Days Qty: 10 0RF hydrocodone-acetaminophen [hydrocodone-acetaminophen] 5-325 mg tablet 1 tab PO Q6H PRN PRN (Reason: Pain) 3 Days Qty: 10 0RF ondansetron [ondansetron] 4 mg tablet,disintegrating 8 mg PO Q8H PRN PRN (Reason: Nausea) Qty: 20 0RF hydrocodone-acetaminophen 5-325 mg tablet 1 tab PO Q6H PRN PRN (Reason: Pain) 3 Days Qty: 10 0RF ondansetron 4 mg tablet,disintegrating 4 mg PO Q8H PRN PRN (Reason: Nausea) Qty: 10 0RF hydrocodone-acetaminophen [hydrocodone-acetaminophen] 5-325 mg tablet 1 tab PO Q6H PRN PRN (Reason: Pain) 3 Days Qty: 12 0RF cefuroxime axetil 500 mg tablet 500 mg PO BID Qty: 14 0RF hydrocodone-acetaminophen [hydrocodone-acetaminophen] 5-325 mg tablet 1 tab PO Q6H PRN PRN (Reason: Pain) 3 Days Qty: 10 0RF Stand Alone Forms: Work Status Form Primary Care Provider: Mesfin Ramos Referrals: Mesfin Ramos PA [Primary Care Provider] - 5-7 Days Disposition Disposition: Home, Self Care
[2023-02-19 21:34] VITALS: RESP 14
== END 2023-02-19 21:35 | disposition home or self-care (01) ==
PROVIDERS: Emergency Provider Emergency Medicine; PCP Physician Assistant; Visit Provider Emergency Medicine
DX: S93.402A Sprain of unspecified ligament of left ankle, initial encounter (principal); W10.9XXA Fall (on) (from) unspecified stairs and steps, initial encounter; E78.5 Hyperlipidemia, unspecified; E66.9 Obesity, unspecified; Z87.891 Personal history of nicotine dependence
CPT/HCPCS: 73610; 99283

== ENCOUNTER 2023-04-12 21:51 | Emergency (ER) | payer MEDICAID, SELFPAY ==
[2023-04-12 21:51] VITALS: BP 123/76; PULSE 92; RESP 16; TEMP 36.1; O2SAT 97; BMI 37.8
[2023-04-12 22:37] LABS: Absolute Lymphocyte Count 2.13 X10^3/uL (0.83-4.51); Basophil# 0.04 X10^3/uL; Basophil% 0.6 % (0-1); Eosinophil# 0.15 X10^3/uL; Eosinophils% 2.2 % (0-5); Hematocrit 39.9 % (37-47); Hemoglobin 12.3 g/dL (12.0-15.0); Lymphocyte # 2.13 X10^3/ul (0.83-4.51); Lymphocyte % 31.6 % (19-41); Mean Corp Hgb Conc 30.8 g/dL (32-36); Mean Corpuscular Hgb 27.3 pg (27.0-32.0); Mean Corpuscular Volume 88.5 fL (81-99); Mean Platelet Vol. 9.9 fl (6.2-12.0); Monocyte# 0.44 X10^3/uL; Monocyte% 6.5 % (0-10); NRBC Flagged by Analyzer 0 % (0-5); Neutrophil # 3.97 X10^3/uL (2.7-7.7); Neutrophil % 58.8 % (47-70); Platelet Count 220 K/mm3 (150-450); RBC Distribution Width CV 14.1 % (11.6-14.6); Red Blood Count 4.51 M/mm3 (4.2-5.4); White Blood Count 6.8 K/mm3 (4.4-11.0)
[2023-04-12] MEDS: Ondansetron 4 MG/2 ML Vial IV (22:40)
[2023-04-12] MEDS: 0.9% Normal Saline (1000mL) 1,000 ML 999 ML IV (22:40)
[2023-04-12] MEDS: Morphine 4 MG/ML Syringe IV (22:40)
--- NOTE | 2023-04-12 22:45 | RAD_ITS ---
INDICATION: abd pain EXAMINATION/TECHNIQUE: X-RAY - XR Abdomen Series W/ Chest 1 View COMPARISON: CT abdomen pelvis October 06, 2022. FINDINGS: A frontal view of the chest was obtained as well as upright and supine views of the abdomen. A supine frontal view of the pelvis was also obtained. Suboptimal inspiration on the chest x-ray. The cardiac silhouette is not enlarged. Mild atelectasis in the lung bases bilaterally. No pneumothorax. No gross free intraperitoneal air. Few loops of dilated small bowel are in the left lower quadrant with air-fluid levels. These loops correspond to the region of the small bowel anastomosis on the prior CT. Similar small bowel dilatation in the same region is present on the prior CT. A moderate to large amount of stool is identified. RAD/Acute Abdomen Inc Chest IMPRESSION: Few dilated loops of small bowel in the left lower quadrant. This may be chronic, related to the small bowel anastomosis, similar to the prior CT. Early acute small bowel obstruction is an additional consideration depending on the clinical scenario. Mild atelectasis in the lung bases bilaterally. Electronically Signed: Miguel Lazcano MD at 0:06 EST ,
[2023-04-12 22:58] LABS: AST(SGOT) 19 U/L (15-37); Alanine Aminotransfer ALT/SGPT 31 U/L (13-56); Albumin, Serum 3.3 g/dL (3.2-5.0); Alkaline Phosphatase 95 U/L (45-117); Anion Gap 3 (5-15); BUN 13 mg/dL (7-18); BUN/Creat Ratio 14.8 RATIO (10-20); Bilirubin, Direct 0.06 mg/dL (0.00-0.30); Calcium,Total 9.2 mg/dL (8.5-10.1); Chloride 112 mmol/L (98-107); Creatinine, Serum 0.88 mg/dL (0.55-1.02); EST Glomerular Filtration Rate 75 mL/min (>60); Est Glom Filt Rate - Afr Amer 90 mL/min (>60); Estimated Creatinine Clearance 68.19 ml/min; Globulin 3.4 g/dL (2.2-4.2); Glucose 98 mg/dL (74-106); Lipase 33 U/L (13-75); Potassium 4.3 mmol/L (3.5-5.1); Protein, Total 6.7 g/dL (6.4-8.2); Sodium Level 143 mmol/L (136-145)
[2023-04-12 23:08] LABS: Lactic Acid 0.7 mmol/L (0.4-1.9)
--- OUTSIDE RECORDS SUMMARY | 2023-04-12 23:12 | XMS RPT_ITS | CCD ---
Author Name Unknown Address [address] [place] [address] Organization [facility] Care Team Providers Care Energy Professional Name Role Phone America Luz MD Primary Care Provider AMERICA LUZ Referring Unavailable AMERICA LUZ Primary Care Unavailable AMERICA LUZ Attending Unavailable AMERICA LUZ Primary Care Unavailable AMERICA LUZ Primary Care Unavailable AMERICA LUZ Primary Care Unavailable AMERICA LUZ Primary Care Unavailable AMERICA LUZ Primary Care Unavailable KHUSHBOO COOPER Attending Unavailable AMERICA LUZ Referring Unavailable HAI REEDER Attending Unavailable AMERICA LUZ Primary Care Unavailable Allergies Allergy Classification Reported Allergen(s) Allergy Type Date of Onset Reaction(s) Facility (13 sources) Acetaminophen / oxyCODONE; Translations: [OXYCODONE-ACETAM INOPHEN] Drug Allergy 1 Shortness of Breath [facility] (13 sources) Amoxicillin; Translations: [AMOXICILLIN] Drug Allergy 2 Hives [facility] (13 sources) atorvastatin; Translations: [ATORVASTATIN] Drug Allergy 4 Vomiting [facility] (13 sources) Erythromycin; Translations: [ERYTHROMYCIN] Drug Allergy 0 Intolerance [facility] Work Phone: (13 sources) HYDROmorphone; Translations: [HYDROMORPHONE (BULK)] Drug Allergy 5 Anaphylaxis [facility] (13 sources) meloxicam; Translations: [MELOXICAM] Drug Allergy 4 Other: See Comments [facility] (13 sources) Naproxen; Translations: [NAPROXEN] Drug Allergy 1 Itching [facility] Work Phone: (13 sources) Pravastatin; Translations: [PRAVASTATIN] Drug Allergy 7 Itching [facility] Work Phone: (13 sources) risperiDONE; Translations: [RISPERIDONE] Drug Allergy 5 Swelling [facility] (13 sources) traMADol; Translations: [TRAMADOL] Drug Allergy 3 Intolerance [facility] Work Phone: (13 sources) Propoxyphene N-Acetaminophen; Translations: [PROPOXYPHENE N-ACETAMINOPHEN] Drug Allergy 2 Mental Status Change [facility] (13 sources) Sulfate Salt; Translations: [SULFATE SALT] Drug Allergy 6 Swelling [facility] (12 sources) zpack [Other] Propensity to adverse reactions 6 Mental Status Change [facility] (1 source) OTHER; Translations: [OTHER] Propensity to adverse reactions (disorder) 6 [facility] Repository Medications Current Medications Medication Drug Class(es) Dates Sig (Normalized) Sig (Original) polymyxin b 48931 unt/ml / trimethoprim 1 mg/ml ophthalmic solution (1 source) Dihydrofolate Reductase Inhibitor Antibacterial, Polymyxin-class Antibacterial Start: 04-28-2022 End: 05-05-2022 take 1 drop(s) into the eye(s) every four hours trimethoprim-gabrielle ymyxin (POLYTRIM) 10,000 unit- 1 mg/mL ophthalmic solution Indications: Eye irritation Use 1 Drop in the left eye every 4 hours for 7 days. 10 mL 0 04/28/2022 05/05/2022 Active Completed/Discontinued Medications Medication Drug Class(es) Dates Sig (Normalized) Sig (Original) acetaminophen 325 mg oral tablet (12 sources) take 2 tablets by mouth every six hours as needed acetaminophen (TYLENOL) 325 mg tablet Take 650 mg by mouth every 6 hours as needed. 0 Active Problems Active Problems Problem Classification Problem Date Documented Date Episodic/Chronic Complications of surgical procedures or medical care (12 sources) Postablative ovarian failure; Translations: [Asymptomatic postprocedural ovarian failure] Onset: 09-28-2013 09-28-2013 Chronic Disorders of lipid metabolism (13 sources) Hyperlipidemia; Translations: [Hyperlipidemia, unspecified] 08-21-2013 Chronic Disorders of teeth and jaw (2 sources) Jaw pain; Translations: [Jaw pain] Onset: 08-18-2022 Episodic Inflammation; infection of eye (except that caused by tuberculosis or sexually transmitteddisease) (1 source) Unspecified blepharitis left eye, upper and lower eyelids; Translations: [Blepharitis, unspecified] Episodic Menopausal disorders (12 sources) Menopausal syndrome; Translations: [Menopausal and female climacteric states] Onset: 04-29-2009 04-29-2009 Chronic Mood disorders (12 sources) Bipolar I disorder; Translations: [Bipolar disorder, unspecified] Onset: 03-17-2013 03-17-2013 Chronic Other eye disorders (12 sources) Vitreous opacities; Translations: [Other vitreous opacities, unspecified eye] Onset: 05-03-2014 05-03-2014 Chronic Other eye disorders (1 source) Disorder of eye; Translations: [Other specified disorders of eye and adnexa] Episodic Other non-traumatic joint disorders (2 sources) Shoulder pain; Translations: [Pain in right shoulder] Episodic Other non-traumatic joint disorders (1 source) Disorder of shoulder; Translations: [Other specified joint disorders, unspecified shoulder] Episodic Other upper respiratory infections (4 sources) Viral upper respiratory tract infection; Translations: [Acute upper respiratory infection, unspecified] Onset: 07-29-2022 Episodic Substance-related disorders (12 sources) Tobacco user; Translations: [Nicotine dependence, unspecified, uncomplicated] Onset: 01-23-2008 06-05-2020 Chronic Past or Other Problems Problem Classification Problem Date Documented Da te Episodic/Chronic Abdominal pain (20 sources) Chronic abdominal pain; Translations: [Unspecified abdominal pain] Onset: 05-22-2011 05-22-2011 Episodic Neoplasms of unspecified nature or uncertain behavior (12 sources) Lesion of eyelid; Translations: [Neoplasm of unspecified behavior of bone, soft tissue, and skin] Onset: 05-03-2014 05-03-2014 Episodic Other non-traumatic joint disorders (1 source) Pain in right shoulder; Translations: [Acute pain of right shoulder] Onset: 06-03-2022 Episodic Other screening for suspected conditions (not mental disorders or infectious disease) (11 sources) Patient encounter status; Translations: [Encounter for screening mammogram for malignant neoplasm of breast] Onset: 03-18-2022 Episodic Pulmonary heart disease (12 sources) Pulmonary embolism; Translations: [Single subsegmental pulmonary embolism without acute cor pulmonale] Onset: 06-05-2020 06-05-2020 Episodic Results Test Name Value Interpretation Reference Range Facil ity Vital Signs Date Time Vital Sign Value Performing Clinician Jarrett stafford 08-18-2022 10:57-0400 Body temperature 98.1 [degF] Krislyn Aberegg PA Work Phone: [facility] 08-18-2022 10:57-0400 Diastolic blood pressure 76 mm[Hg] Krislyn Aberegg PA Work Phone: [facility] 08-18-2022 10:57-0400 Heart rate 97 /min Krislyn Aberegg PA Work Phone: [facility] 08-18-2022 10:57-0400 Respiratory rate 22 /min Krislyn Aberegg PA Work Phone: [facility] 08-18-2022 10:57-0400 SaO2% (BldA) [Mass fraction] 99 % Krislyn Aberegg PA Work Phone: [facility] 08-18-2022 10:57-0400 Systolic blood pressure 128 mm[Hg] Krislyn Aberegg PA Work Phone: [facility] 07-29-2022 14:41-0400 Diastolic blood pressure 60 mm[Hg] Khushboo Haagen [employer]CHO[employer] EXECUTIVE DIRECTOR.FOREIGN POLICY OFFICER Work Phone: [facility] 07-29-2022 14:41-0400 Heart rate 98 /min Khushboo Haagen [employer]CHO[employer] EXECUTIVE DIRECTOR.FOREIGN POLICY OFFICER Work Phone: [facility] 07-29-2022 14:41-0400 Respiratory rate 18 /min Khushboo Haagen [employer]CHOOL EXECUTIVE DIRECTOR.FOREIGN POLICY OFFICER Work Phone: [facility] 07-29-2022 14:41-0400 SaO2% (BldA) [Mass fraction] 96 % Khushboo Haagen [employer]CHOOL EXECUTIVE DIRECTOR.FOREIGN POLICY OFFICER Work Phone: [facility] 07-29-2022 14:41-0400 Systolic blood pressure 98 mm[Hg] Khushboo Haagen [employer]CHOOL EXECUTIVE DIRECTOR.FOREIGN POLICY OFFICER Work Phone: [facility] 06-03-2022 15:28-0500 Body weight 92.08 kg America Luz MD Work Phone: [facility] 06-03-2022 15:28-0500 Diastolic blood pressure 62 mm[Hg] America Luz MD Work Phone: [facility] 06-03-2022 15:28-0500 Heart rate 83 /min America Luz MD Work Phone: [facility] 06-03-2022 15:28-0500 SaO2% (BldA) [Mass fraction] 95 % America Luz MD Work Phone: [facility] 06-03-2022 15:28-0500 Systolic blood pressure 102 mm[Hg] America Luz MD Work Phone: [facility] 04-28-2022 18:39-0500 Body temperature 98.71 [degF] Sophy Denbow PA-C Work Phone: [facility] 04-28-2022 18:39-0500 Body weight 91.63 kg Sophy Denbow PA-C Work Phone: [facility] 04-28-2022 18:39-0500 Diastolic blood pressure 64 mm[Hg] Sophy Denbow PA-C Work Phone: [facility] 04-28-2022 18:39-0500 Heart rate 84 /min Sophy Denbow PA-C Work Phone: [facility] 04-28-2022 18:39-0500 Respiratory rate 16 /min Sophy Denbow PA-C Work Phone: [facility] 04-28-2022 18:39-0500 SaO2% (BldA) [Mass fraction] 96 % Sohpy Denbow PA-C Work Phone: [facility] 04-28-2022 18:39-0500 Systolic blood pressure 102 mm[Hg] Sophy Denbow PA-C Work Phone: [facility] Encounters Encounter Date Encounter Type Care Provider Facility Start: 08-18-2022 End: 08-18-2022 ambulatory AMERICA LUZ Facility:[facility] Start: 08-18-2022 End: 08-18-2022 Patient encounter procedure Luis Alfredo KINGSLEY Work Phone: [facility] Procedures Date Procedure Procedure Detail Performing Clinician Start: 07-29-2022 COVID WITH FLUA+B, ROUTINE Khushboo Haagen [employer]CHO[employer] EXECUTIVE DIRECTOR.FOREIGN POLICY OFFICER Work Phone: Start: 07-29-2022 STREP A MOLECULAR (POC) Khushboo Zamarripaagen [employer]CHO[employer] EXECUTIVE DIRECTOR.FOREIGN POLICY OFFICER Work Phone: Start: 05-21-2016 Adult depression screening assessment America Luz MD Work Phone: Plan of Treatment Date Care Activity Detail Author Start: 04-24-2025 Urine microalbumin profile DTAP,TDAP,TD (2 - Td or Tdap) [facility] Start: 06-03-2022 End: 08-03-2022 CBC W Auto Differential panel - Blood CBC + DIFF Lab Routine Hyperlipidemia, unspecified hyperlipidemia type Expected: 06/03/2022, Expires: 08/03/2022 [facility] Work Phone: Immunizations Immunization Date Immunization Notes Care Provider Olive porras 03-12-2022 influenza, seasonal, injectable Khushboo Haagen [employer]CHO[employer] EXECUTIVE DIRECTOR.FOREIGN POLICY OFFICER Work Phone: [facility] 04-26-2020 influenza, injectabl e, quadrivalent, preservative free Khushboo Haagen [employer] SCHOOL EXECUTIVE DIRECTOR.FOREIGN POLICY OFFICER Work Phone: [facility] 02-08-2018 influenza, seasonal, injectable, preservative free Khushboo Haagen [employer]CHO[employer] EXECUTIVE DIRECTOR.FOREIGN POLICY OFFICER Work Phone: [facility] 05-21-2016 influenza, injectabl e, quadrivalent, contains preservative America Luz MD Work Phone: [facility] 04-24-2015 tetanus toxoid, redu daniel diphtheria toxoid, and acellular pertussis vaccine, adsorbed Khushboo Haagen [employer]CHO[employer] EXECUTIVE DIRECTOR.FOREIGN POLICY OFFICER Work Phone: [facility] 02-22-2015 influenza, injectabl e, quadrivalent, contains preservative America Luz MD Work Phone: [facility] 01-17-2014 influenza, seasonal, injectable America Luz MD Work Phone: [facility] 01-17-2014 pneumococcal polysaccharide vaccine, 23 valent America Luz MD Work Phone: [facility] Payers Date Payer Category Payer Medicaid [id number] 2021 Medicaid [id number] 2021 Medicaid [id number] 2020 Medicaid [facility] MEDICAID [facility] MEDICAID [id number] 2020-Present [phone] [address] [place] [address] Medicaid [id number] Social History Date Type Detail Facility Start: 10-28-2020 End: 04-28-2022 Tobacco smoking status NHIS Ex-smoker [facility] End: 01-11-2020 History of tobacco use Current smoker [facility] End: 01-11-2020 History of tobacco use Cigarette Smoker [facility] Start: 10-28-2020 End: 04-28-2022 Cigarettes smoked current (pack per day) - Reported 0.25 [facility] Start: 10-28-2020 End: 04-28-2022 Tobacco use and exposure Smokeless tobacco non-user [facility] Start: 06-09-2021 End: 08-18-2022 Alcohol intake Current non-drinker of alcohol (finding) [facility] Start: 1980 Sex Assigned At Not on file [facility] Clinical Notes 02-16-2013 to 09-16-2022 TEETEE Tang - 08/18/2022 11:05 AM Ayaz Fragoso Ma - 07/30/2022 1:50 PM EDTTelephone Encounter - Kerry Fragoso Ma - 07/30/2022 10:36 AM EDTPatient Instructions Note Date & Type Note Facility 09-16-2022 Note Patient Outreach (IN [facility]) SARAHPETE ([id number]) 1980 F Date Time Provider Department 09/16/22 AMERICA LUZ During your visit today, we recorded the following information about you: Allergies As of Date: 09/16/2022 Noted Allergy Reaction AMOXICILLIN 12/16/2011 4 - Hives DARVOCET A500 (PROPOXYPHENE N-QIAN*05/22/2011 1 - Mental Status Change DILAUDID (HYDROMORPHONE (BULK)) 06/18/2014 10 - Anaphylaxis ERYTHROMYCIN 03/13/2010 5 - Intolerance Comments: SHAKING LIPITOR (ATORVASTATIN) 10/16/2013 11 - Vomiting MELOXICAM 05/08/2013 14 - Other: See Comments Comments: Severe Headache NAPROXEN 12/02/2020 9 - Itching PERCOCET (OXYCODONE-ACETAMINOPHEN) 011 12 - Shortness of Breath PRAVASTATIN 05/21/2016 9 - Itching RISPERIDONE 04/19/2014 7 - Swelling Comments: Keeping awake at night, fatigue during the day. SULFATE SALT 10/09/2005 7 - Swelling TRAMADOL 02/17/2013 5 - Intolerance Comments: Whole body shaking zpack [Other] 10/09/2005 1 - Mental Status Change Date Reviewed: 08/18/2022 Reviewed by: Tigist Herring LPN - Fully Assessed Visit Diagnosis:Encounter for screening mammogram for breast cancer [Z12.31] Order(s):[facility] SCREENING [[id number]] Order #: [id number] FUTURE Prescriptions as of 09/21/2022 - Hqxxokikmjsenbj-Tbkcfwisj-GX (BROMFED DM) 2-30-10 mg/5 mL syrup Take 10 mL by mouth four times daily as needed. - acetaminophen (TYLENOL) 325 mg tablet Take 650 mg by mouth every 6 hours as needed. 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] 09/28/2013 Growth of eyelid - Left Eye [D49.2] 05/03/2014 Other vitreous opacities - Both Eyes [H43.399] 05/03/2014 Single subsegmental pulmonary embolism without *06/05/2020 Generalized abdominal pain [R10.84] 02/26/2021 Encounter for support and coordination of trans*03/18/2022 Encounter Status:Closed by EPIC, PRODUSER on 09/21/22 [facility] 08-18-2022 Note HNO ID: [id number] Author: RT Jori(R) Service: Nuclear Medicine Author Type: Technologist Type: Progress Notes Filed: 08/18/2022 11:40 AM Note Text: Radiology Service Progress Note PATIENT NAME: Pete Wright DATE OF SERVICE: August 18, 2022 TIME: 11:28 AM PATIENT IDENTITY VERIFICATION COMPLETED USING TWO (2) IDENTIFIERS: Name and Date of confirmed by patient verbally. FALL SCREENING: Has the patient had 2 falls in the last year or 1 fall with injury or currently using an Ambulatory Assistive Device (Walker, Cane, Wheelchair, Crutches, etc.)? No PATIENT GENDER DATA: Female. status: : No status: NO. PATIENT RELEVANT IMPLANT DATA REVIEWED: Not Applicable RADIOLOGY DEPARTMENT: mandible 4v PERIPHERAL IV DATA: Not applicable SIGNED BY: RT Jori(R) August 18, 2022 11:28 AM [facility] 08-18-2022 Note HNO ID: [id number] Author: TEETEE Tang Service: ? Author Type: Physician [employer] Type: Progress Notes Filed: 08/18/2022 12:07 PM Note Text: This note was created using [employer] acquired by [employer]. Subjective Pete Wright is a 41 year old female. HPI 41-year-old female presents for right-sided jaw pain. Patient states pain started 2 days ago. She was opening her mouth and felt a pop . She has had TMJ issues for years now. She states that it is painful to chew. She is still able to open her mouth, but not fully due to the pain. No dental pain or swelling. No drainage. No sore throat. No fevers. No other complaints PAST MEDICAL HISTORY Diagnosis Date Bowel obstruction (HCC) April 2009 and Bowel Rupture Chronic abdominal pain 05/22/2011 History of recurrent miscarriages Hyperlipidemia PMH - PAST MEDICAL HISTORY OF Tubal x2 PAST SURGICAL HISTORY Procedure Laterality Date APPENDECTOMY CHOLECYSTECTOMY Cholecystectomy CONSULT TO COLO-RECTAL SURGERY 04/14/2008,04/16/2008 [facility] EXPLORATORY LAPAROTOMY CELIOTOMY W/WO BIOPSY SPX Laparotomy, exp. Adhesiolysis. Abdominal wall resection (mesh included), primary closure. OOPHORECTOMY PARTIAL/TOTAL UNI/BI just one left ovary and both tubes OOPHORECTOMY PARTIAL/TOTAL UNI/BI 2007 dr. del rausch general right ovary PAST SURGICAL HISTORY OF Bowel resection PAST SURGICAL HISTORY OF 01/25/2020 SBO: exp lap, BHARATH, small bowel resection Dr. Sumit Cutler [facility] will TOTAL ABDOMINAL HYSTERECT W/WO RMVL TUBE OVARY 09/2005 after vag delivery-hemorrhage, AT/WB ALLERGIES Amoxicillin, Darvocet A500 [Propoxyphene N-Acetaminophen], Dilaudid [Hydromorphone (Bulk)], Erythromycin, Lipitor [Atorvastatin], Meloxicam, Naproxen, Percocet [Oxycodone-Acetaminophen], Pravastatin, Risperidone, Sulfate Salt, Tramadol, and Zpack [Other] MEDICATIONS acetaminophen (TYLENOL) 325 mg tablet Take 650 mg by mouth every 6 hours as needed. Dghtwyeaucndbse-Yauvdbyxx-TA (BROMFED DM) 2-30-10 mg/5 mL syrup Take 10 mL by mouth four times daily as needed. FAMILY HISTORY Problem Relation Age of Onset Cancer Paternal Grandfather PROSTATE Stroke Maternal Grandmother Diabetes Maternal Grandmother Coronary Artery Disease Maternal Grandmother Cancer Maternal Grandmother Cataract Maternal Grandmother Hypertension Maternal Grandfather Cataract Maternal Grandfather Diabetes Father Hypertension Father Cataract Father Diabetes Paternal Grandmother Social History Tobacco Use Smoking status: Former Packs/day: 0.25 Years: 15.00 Pack years: 3.75 Types: Cigarettes Quit date: 01/11/2020 Years since quittin.6 Smokeless tobacco: Never Substance Use Topics Alcohol use: No Drug use: No Types: Marijuana Comment: Remote marijuana use - has been clean for 11 years Review of Systems Constitutional: Negative for chills and fever. HENT: Negative for congestion, ear pain, sore throat and trouble swallowing. +jaw pain Respiratory: Negative for cough and shortness of breath. Cardiovascular: Negative for chest pain. Gastrointestinal: Negative for diarrhea and vomiting. Objective BP 128/76 Pulse 97 Temp 36.7 ?C (98.1 ?F) (Tympanic) Resp 22 SpO2 99% Physical Exam Vitals and nursing note reviewed. Constitutional: General: She is not in acute distress. Appearance: Normal appearance. She is not toxic-appearing. HENT: Head: Jaw: Tenderness and pain on movement present. No swelling or malocclusion. Comments: Patient has tenderness over right jaw and TMJ. Pain with movement. Able to open mouth, but not fully due to pain. Handling secretions. No floor of mouth or tongue swelling. Throat clear. No swelling noted on my exam. No signs of dental infection on exam. Right Ear: Tympanic membrane and ear canal normal. Left Ear: Tympanic membrane and ear canal normal. Nose: Nose normal. Mouth/Throat: Mouth: Mucous membranes are moist. No angioedema. Dentition: No dental abscesses. Pharynx: No oropharyngeal exudate or posterior oropharyngeal erythema. Eyes: Conjunctiva/sclera: Conjunctivae normal. Cardiovascular: Rate and Rhythm: Normal rate and regular rhythm. Pulmonary: Effort: Pulmonary effort is normal. Breath sounds: Normal breath sounds. Neurological: Mental Status: She is alert. Assessment and Plan ASSESSMENT/PLAN: 1. Pain in lower jaw - ICD9: 784.92, ICD10: R68.84 - XR MANDIBLE 4V PA/DEX/BOTH OBL -XR no acute abnormality. -Suspect TMJ dysfunction/pain. No signs of dental infection on exam. -Rx for prednisone. -Follow-up with dentist Diagnosis and treatment plan were discussed and questions were answered to the patient's satisfaction. Pt acknowledged understanding of concepts and follow up plan. Specific signs and symptoms that would indicate the need for higher level of care were discussed in detail warranting prompt ER evaluation. (more content not included)... [facility] 08-18-2022 History of Presen t illness Narrative This note was created using [employer] acquired by [employer]. Subjective Pete Wright is a 41 year old female. HPI 41-year-old female presents for right-sided jaw pain. Patient states pain started 2 days ago. She was opening her mouth and felt a pop . She has had TMJ issues for years now. She states that it is painful to chew. She is still able to open her mouth, but not fully due to the pain. No dental pain or swelling. No drainage. No sore throat. No fevers. No other complaints PAST MEDICAL HISTORY Diagnosis Date Bowel obstruction (HCC) April 2009 and Bowel Rupture Chronic abdominal pain 05/22/2011 History of recurrent miscarriages Hyperlipidemia PMH - PAST MEDICAL HISTORY OF Tubal x2 PAST SURGICAL HISTORY Procedure Laterality Date APPENDECTOMY CHOLECYSTECTOMY Cholecystectomy CONSULT TO COLO-RECTAL SURGERY 04/14/2008,04/16/2008 [facility] EXPLORATORY LAPAROTOMY CELIOTOMY W/WO BIOPSY SPX Laparotomy, exp. Adhesiolysis. Abdominal wall resection (mesh included), primary closure. OOPHORECTOMY PARTIAL/TOTAL UNI/BI just one left ovary and both tubes OOPHORECTOMY PARTIAL/TOTAL UNI/BI 2007 dr. del rausch general right ovary PAST SURGICAL HISTORY OF Bowel resection PAST SURGICAL HISTORY OF 01/25/2020 SBO: exp lap, BHARATH, small bowel resection Dr. Sumit Cutler [facility] [place] will TOTAL ABDOMINAL HYSTERECT W/WO RMVL TUBE OVARY 09/2005 after vag delivery-hemorrhage, AT/WB ALLERGIES Amoxicillin, Darvocet A500 [Propoxyphene N-Acetaminophen], Dilaudid [Hydromorphone (Bulk)], Erythromycin, Lipitor [Atorvastatin], Meloxicam, Naproxen, Percocet [Oxycodone-Acetaminophen], Pravastatin, Risperidone, Sulfate Salt, Tramadol, and Zpack [Other] MEDICATIONS acetaminophen (TYLENOL) 325 mg tablet Take 650 mg by mouth every 6 hours as needed. Atmllbvjrbbpklf-Qrhryamny-EF (BROMFED DM) 2-30-10 mg/5 mL syrup Take 10 mL by mouth four times daily as needed. FAMILY HISTORY Problem Relation Age of Onset Cancer Paternal Grandfather PROSTATE Stroke Maternal Grandmother Diabetes Maternal Grandmother Coronary Artery Disease Maternal Grandmother Cancer Maternal Grandmother Cataract Maternal Grandmother Hypertension Maternal Grandfather Cataract Maternal Grandfather Diabetes Father Hypertension Father Cataract Father Diabetes Paternal Grandmother Social History Tobacco Use Smoking status: Former Packs/day: 0.25 Years: 15.00 Pack years: 3.75 Types: Cigarettes Quit date: 01/11/2020 Years since quittin.6 Smokeless tobacco: Never Substance Use Topics Alcohol use: No Drug use: No Types: Marijuana Comment: Remote marijuana use - has been clean for 11 years Review of Systems Constitutional: Negative for chills and fever. HENT: Negative for congestion, ear pain, sore throat and trouble swallowing. +jaw pain Respiratory: Negative for cough and shortness of breath. Cardiovascular: Negative for chest pain. Gastrointestinal: Negative for diarrhea and vomiting. Objective BP 128/76 Pulse 97 Temp 36.7 C (98.1 F) (Tympanic) Resp 22 SpO2 99% Physical Exam Vitals and nursing note reviewed. Constitutional: General: She is not in acute distress. Appearance: Normal appearance. She is not toxic-appearing. HENT: Head: Jaw: Tenderness and pain on movement present. No swelling or malocclusion. Comments: Patient has tenderness over right jaw and TMJ. Pain with movement. Able to open mouth, but not fully due to pain. Handling secretions. No floor of mouth or tongue swelling. Throat clear. No swelling noted on my exam. No signs of dental infection on exam. Right Ear: Tympanic membrane and ear canal normal. Left Ear: Tympanic membrane and ear canal normal. Nose: Nose normal. Mouth/Throat: Mouth: Mucous membranes are moist. No angioedema. Dentition: No dental abscesses. Pharynx: No oropharyngeal exudate or posterior oropharyngeal erythema. Eyes: Conjunctiva/sclera: Conjunctivae normal. Cardiovascular: Rate and Rhythm: Normal rate and regular rhythm. Pulmonary: Effort: Pulmonary effort is normal. Breath sounds: Normal breath sounds. Neurological: Mental Status: She is alert. Assessment and Plan ASSESSMENT/PLAN: 1. Pain in lower jaw - ICD9: 784.92, ICD10: R68.84 - XR MANDIBLE 4V PA/DEX/CHARO OBL -XR no acute abnormality. -Suspect TMJ dysfunction/pain. No signs of dental infection on exam. -Rx for prednisone. -Follow-up with dentist Diagnosis and treatment plan were discussed and questions were answered to the patient's satisfaction. Pt acknowledged understanding of concepts and follow up plan. Specific signs and symptoms that would indicate the need for higher level of care were discussed in detail warranting prompt ER evaluation. TEETEE Tang documented in this encounter [facility] 07-30-2022 Note HNO ID: [id number] Author: Kerry Fragoso Ma Service: ? Author Type: ? Type: Progress Notes Filed: 07/30/2022 1:55 PM Note Text: POPULATION HEALTH NAVIGATION OUTREACH Action/FYI Pt recently seen 07/29/22, order placed 10/08/21 Patient Identified by Name and : YES, Outreach Outcome/Action Letter mailed Did you use a PCP flex slot to schedule this appointment? N/A Reason for Outreach Care Gap or Scheduling/Wellness visits Payer: Payor: [facility] MEDICAID / Plan: [facility] COMMUNITY PLAN MEDICAID [facility] / Product Type: Medicaid / Care Gap Reviewed:: Breast Cancer screening Reminder: Reminder note to check Health Maintenance for items below Health Maintenance items due: HEPATITIS B(1 of 3 - 3-dose series) Never done COVID-19 VACCINE(1) Never done HEPATITIS C SCREENING Never done MAMMOGRAM Never done DEPRESSION ASSESSMENT Never done Navigation Signature: Kerry Fragoso Ma July 30, 2022 1:50 PM [facility] 07-30-2022 Note Patient Outreach (FA MPWS) PETE WRIGHT ([id number]) 1980 F Date Time Provider Department 07/30/22 KERRY FRAGOSO During your visit today, we recorded the following information about you: Kerry Fragoso Ma 07/30/2022 1:55 PM Signed POPULATION HEALTH NAVIGATION OUTREACH Action/FYI Pt recently seen 07/29/22, order placed 10/08/21 Patient Identified by Name and : YES, Outreach Outcome/Action Letter mailed Did you use a PCP flex slot to schedule this appointment? N/A Reason for Outreach Care Gap or Scheduling/Wellness visits Payer: Payor: [facility] MEDICAID / Plan: [facility] COMMUNITY PLAN MEDICAID [facility] / Product Type: Medicaid / Care Gap Reviewed:: Breast Cancer screening Reminder: Reminder note to check Health Maintenance for items below Health Maintenance items due: HEPATITIS B(1 of 3 - 3-dose series) Never done COVID-19 VACCINE(1) Never done HEPATITIS C SCREENING Never done MAMMOGRAM Never done DEPRESSION ASSESSMENT Never done Navigation Signature: Kerry Fragoso Ma July 30, 2022 1:50 PM Allergies As of Date: 07/30/2022 Noted Allergy Reaction AMOXICILLIN 12/16/2011 4 - Hives DARVOCET A500 (PROPOXYPHENE N-QIAN*05/22/2011 1 - Mental Status Change DILAUDID (HYDROMORPHONE (BULK)) 06/18/2014 10 - Anaphylaxis ERYTHROMYCIN 03/13/2010 5 - Intolerance Comments: SHAKING LIPITOR (ATORVASTATIN) 10/16/2013 11 - Vomiting MELOXICAM 05/08/2013 14 - Other: See Comments Comments: Severe Headache NAPROXEN 12/02/2020 9 - Itching PERCOCET (OXYCODONE-ACETAMINOPHEN) 011 12 - Shortness of Breath PRAVASTATIN 05/21/2016 9 - Itching RISPERIDONE 04/19/2014 7 - Swelling Comments: Keeping awake at night, fatigue during the day. SULFATE SALT 10/09/2005 7 - Swelling TRAMADOL 02/17/2013 5 - Intolerance Comments: Whole body shaking zpack [Other] 10/09/2005 1 - Mental Status Change Date Reviewed: 07/29/2022 Reviewed by: Yobani Wang LPN - Fully Assessed Reason for Visit: Orders [681] Cmt: Mammogram Prescriptions as of 07/30/2022 - Jvdiekbqzzxzwyo-Xrglghanw-AK (BROMFED DM) 2-30-10 mg/5 mL syrup Take 10 mL by mouth four times daily as needed. - acetaminophen (TYLENOL) 325 mg tablet Take 650 mg by mouth every 6 hours as needed. 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] 09/28/2013 Growth of eyelid - Left Eye [D49.2] 05/03/2014 Other vitreous opacities - Both Eyes [H43.399] 05/03/2014 Single subsegmental pulmonary embolism without *06/05/2020 Generalized abdominal pain [R10.84] 02/26/2021 Encounter for support and coordination of trans*03/18/2022 Letter Text Encounter Status:Closed by KERRY FRAGOSO MA on 07/30/22 [facility] 07-30-2022 History of Presen t illness Narrative POPULATION HEALTH NAVIGATION OUTREACH Action/FYI Pt recently seen 07/29/22, order placed 10/08/21 Patient Identified by Name and : YES, Outreach Outcome/Action Letter mailed Did you use a PCP flex slot to schedule this appointment? N/A Reason for Outreach Care Gap or Scheduling/Wellness visits Payer: Payor: [facility] MEDICAID / Plan: [facility] COMM[employer] PLAN MEDICAID [facility] / Product Type: Medicaid / Care Gap Reviewed:: Breast Cancer screening Reminder: Reminder note to check Health Maintenance for items below Health Maintenance items due: HEPATITIS B(1 of 3 - 3-dose series) Never done COVID-19 VACCINE(1) Never done HEPATITIS C SCREENING Never done MAMMOGRAM Never done DEPRESSION ASSESSMENT Never done Navigation Signature: Kerry Fragoso Ma July 30, 2022 1:50 PM documented in this encounter [facility] 07-30-2022 Miscellaneous Notes Patient was made aware of the results. Patient verbalizes understanding. Kerry Fragoso Ma ----- Message from Mesfin Ramos PA-C sent at 07/30/2022 10:13 AM EDT ----- Please let her know Covid and flu negative Thanks, Gamaliel Ramos PA-C documented in this encounter [facility] 07-30-2022 Miscellaneous Notes Patient calling asking for COVID test results. COVID WITH FLUA+B, ROUTINE Order: [id number] Status: Final result Visible to patient: No (inaccessible in MyChart) Dx: Viral upper respiratory tract infection Specimen Information: UPPER RESPIRATORY TRACT SWAB; Nasal Swab 0 Result Notes Component Ref Range & Units 1 d ago 1 yr ago SARS-CoV-2 (Agent of COVID-19) See comment Not detected Comment: The method used is RT-PCR or an equivalent NAAT method. Reference Range (the expected result in uninfected individuals): Not detected Influenza A PCR Not Detected Not detected Negative for Influenza A by RT PCR R Influenza B PCR Not Detected Not detected Negative for Influenza B by RT PCR R Resulting Agency [facility] Went over results of COVID and Influenza A and B tests with understanding. documented in this encounter [facility] 07-29-2022 Note HNO ID: [id number] Author: Khushboo Cooper APRN.FOREIGN POLICY OFFICER Service: ? Author Type: Nurse Practitioner Type: Progress Notes Filed: 07/29/2022 3:29 PM Note Text: This is a 41 year old female who presents today with: Patient presents with: Acute Visit: URI symptoms x3 days; has missed the last 2 days of work HISTORY OF PRESENT ILLNESS: Pete Wright is a 41 year old female. Patient presents with: Acute Visit: URI symptoms x3 days; has missed the last 2 days of work Pt presents today with URI symptoms. Started Wednesday evening. Runny nose Sore throat Cough Sneezing Watery eyes. + headache. No ear pain. Unsure if running a fever. + n/v/d. Refers she chronically has diarrhea. Refers sister and nephew are also sick. Refers that she did a covid test Wednesday evening when she got home, which was negative. Not taking anything for symptoms. PAST MEDICAL HISTORY: PAST MEDICAL HISTORY Diagnosis Date Bowel obstruction (HCC) April 2009 and Bowel Rupture Chronic abdominal pain 05/22/2011 History of recurrent miscarriages Hyperlipidemia PMH - PAST MEDICAL HISTORY OF Tubal x2 PAST SURGICAL HISTORY Procedure Laterality Date APPENDECTOMY CHOLECYSTECTOMY Cholecystectomy CONSULT TO COLO-RECTAL SURGERY 04/14/2008,04/16/2008 [facility] EXPLORATORY LAPAROTOMY CELIOTOMY W/WO BIOPSY SPX Laparotomy, exp. Adhesiolysis. Abdominal wall resection (mesh included), primary closure. OOPHORECTOMY PARTIAL/TOTAL UNI/BI just one left ovary and both tubes OOPHORECTOMY PARTIAL/TOTAL UNI/BI 2007 dr. del rausch [facility] right ovary PAST SURGICAL HISTORY OF Bowel resection PAST SURGICAL HISTORY OF 01/25/2020 [facility]: exp lap, BHARATH, small bowel resection Dr. Sumit Cutler [facility] will TOTAL ABDOMINAL HYSTERECT W/WO RMVL TUBE OVARY 09/2005 after vag delivery-hemorrhage, AT/WB ALLERGIES Amoxicillin, Darvocet A500 [Propoxyphene N-Acetaminophen], Dilaudid [Hydromorphone (Bulk)], Erythromycin, Lipitor [Atorvastatin], Meloxicam, Naproxen, Percocet [Oxycodone-Acetaminophen], Pravastatin, Risperidone, Sulfate Salt, Tramadol, and Zpack [Other] MEDICATIONS Current Outpatient Medications Medication Sig HYDROcodone-acetaminophen (NORCO) 5-325 mg per tablet Take 1 tablet by mouth every 6 hours as needed for pain. predniSONE (DELTASONE) 10 mg tablet Take 6 pills (all at once) on day 1, 5 pills on day 2, 4 pills on day 3, 3 pills on day 4, 2 pills on day 5, and 1 pill on day 6. naproxen (NAPROSYN) 500 mg tablet Take 1 tablet by mouth twice daily as needed. FOR PAIN. TAKE WITH FOOD. acetaminophen (TYLENOL) 325 mg tablet Take 650 mg by mouth every 6 hours as needed. No current facility-administered medications for this visit. FAMILY HISTORY Problem Relation Age of Onset Cancer Paternal Grandfather PROSTATE Stroke Maternal Grandmother Diabetes Maternal Grandmother Coronary Artery Disease Maternal Grandmother Cancer Maternal Grandmother Cataract Maternal Grandmother Hypertension Maternal Grandfather Cataract Maternal Grandfather Diabetes Father Hypertension Father Cataract Father Diabetes Paternal Grandmother Social History Tobacco Use Smoking status: Former Packs/day: 0.25 Years: 15.00 Pack years: 3.75 Types: Cigarettes Quit date: 01/11/2020 Years since quittin.5 Smokeless tobacco: Never Substance Use Topics Alcohol use: No Drug use: No Types: Marijuana Comment: Remote marijuana use - has been clean for 11 years EXAM: BP 98/60 Pulse 98 Resp 18 SpO2 96% PHYSICAL EXAM: General Appearance: Well appearing, alert, in no acute distress, well-hydrated, well nourished.. Skin: Skin color, texture, turgor normal, no suspicious rashes or lesions. Head: Normocephalic, no masses, lesions, tenderness or abnormalities. Eyes: Anicteric sclera. Pupils are equally round and reactive to light. Extraocular movements are intact. Ears: External ears normal, canals clear. Normal TMs bilaterally. Oropharynx: Lips, mucosa, and tongue normal, teeth and gums normal, oropharynx normal. Neck: Supple, no adenopathy; thyroid symmetric, normal size, no bruits. Lungs: Lungs clear to auscultation. No wheezing, rhonchi, rales.. Heart: RRR without murmur, gallop, or rubs. No ectopy. Abdomen: Abdomen soft, non-tender. Bowel sounds normal. No masses, organomegaly. Extremities: No deformities, edema, skin discoloration, clubbing or cyanosis. Good capillary refill. Neurologic: Gait normal. ASSESSMENT/PLAN: 1. Viral upper respiratory tract infection - ICD9: 465.9, ICD10: J06.9 (primary diagnosis) - Discussed viral etiology and rationale for treatment. - Alere Strep Test negative, no culture pending - Symptomatic treatment with prn analgesia - Supportive care with fluids and rest - Follow up in one week if symptoms persist or sooner if worsening of symptoms - COVID WITH FLUA+B, ROUTINE - BROMPHENIRAMINE-PSE (more content not included)... [facility] 07-29-2022 Instructions Khushboo Cooper APRN.BROOKE - 07/29/2022 3:27 PM EDT Push fluids. Start the bromfed syrup. Facts About the Common Cold and Upper Respiratory Infection: Common symptoms include: sore throat, tender lymph nodes, low grade fever 99-101F for first few days, watery nasal drip that progresses to thick yellow-green mucus on blowing and on coughing, facial/sinus pressure, headache, chest tightness and tiredness/ fatigue. Usually they peak with the worst symptoms about 5-7 days and take another 5-7 days to clear, in other words 10-14 days. Occasionally there will be a persistent nagging cough or some residual minor nasal congestion up to several weeks. Viral infections are not susceptible to antibiotics. Due to the critical issues with global antibiotic resistance, we do not prescribe antibiotics if we suspect viral sources. Antibiotics can cause serious complications and therefore should be reserved for only serious infections. Get plenty of rest. Force fluids daily with water and juices. Nasal saline spray may help to keep nose open and moist: 2-3 squirts each side every few hours. This also help to rinse out virus and bacteria causing infection. Cool mist humidifier in room during sleep. May use OTC Tylenol or Ibuprofen as direct for discomfort. For sore throat, warm salt water gargles, Chlorseptic spray, lozenges or other OTC sore throat remedies may help. Decongestants such as plain Sudafed or with expectorant such as Mucinex D may help with nasal stuffiness or facial and sinus pressure. Generics are fine. These are over the counter but require an adult signature. Oxymetolazine nasal decongestants (Afrin, Dristan, Miguelito's) may also help (in place of oral decongestants) but should not be used longer than 48-72 hours due to potential rebound congestion. OTC antihistamines such Benadryl (make cause drowsiness) or Zyrtec/ Clariten/ Kathrin (non-drowsy) may help watery nasal drainage though they are generally not recommended because they dry mucus and make it sticky. The flow of mucus is important to help your body rid the virus. If cough keeps you awake at night, try OTC remedies first, such as Nyquil, Delsym, Miguelito's 44 or Mucinex DM. If this doesn't help you sleep, call the office for a prescription. Be careful if you are combining cough and cold medications that you aren't doubling the medicines. If you aren't sure: ask the pharmacist for help. Cough or sneeze into your sleeve to prevent spread of infected secretions. Wash your hands frequently. Try not to cough or sneeze on surfaces others might touch. If symptoms fail to improve in 5-7 days, fever > 100.5F, general worsening, or other concerning symptoms, please notify provider. documented in this encounter [facility] 07-29-2022 History of Presen t illness Narrative This is a 41 year old female who presents today with: Patient presents with: Acute Visit: URI symptoms x3 days; has missed the last 2 days of work HISTORY OF PRESENT ILLNESS: Pete Wright is a 41 year old female. Patient presents with: Acute Visit: URI symptoms x3 days; has missed the last 2 days of work Pt presents today with URI symptoms. Started Wednesday evening. Runny nose Sore throat Cough Sneezing Watery eyes. + headache. No ear pain. Unsure if running a fever. + n/v/d. Refers she chronically has diarrhea. Refers sister and nephew are also sick. Refers that she did a covid test Wednesday evening when she got home, which was negative. Not taking anything for symptoms. PAST MEDICAL HISTORY: PAST MEDICAL HISTORY Diagnosis Date Bowel obstruction (HCC) April 2009 and Bowel Rupture Chronic abdominal pain 05/22/2011 History of recurrent miscarriages Hyperlipidemia PMH - PAST MEDICAL HISTORY OF Tubal x2 PAST SURGICAL HISTORY Procedure Laterality Date APPENDECTOMY CHOLECYSTECTOMY Cholecystectomy CONSULT TO COLO-RECTAL SURGERY 04/14/2008,04/16/2008 [facility] EXPLORATORY LAPAROTOMY CELIOTOMY W/WO BIOPSY SPX Laparotomy, exp. Adhesiolysis. Abdominal wall resection (mesh included), primary closure. OOPHORECTOMY PARTIAL/TOTAL UNI/BI just one left ovary and both tubes OOPHORECTOMY PARTIAL/TOTAL UNI/BI 2007 dr. del rausch general right ovary PAST SURGICAL HISTORY OF Bowel resection PAST SURGICAL HISTORY OF 01/25/2020 [facility]: exp lap, BHARATH, small bowel resection Dr. Sumit [facility]ler [facility] will TOTAL ABDOMINAL HYSTERECT W/WO RMVL TUBE OVARY 09/2005 after vag delivery-hemorrhage, AT/WB ALLERGIES Amoxicillin, Darvocet A500 [Propoxyphene N-Acetaminophen], Dilaudid [Hydromorphone (Bulk)], Erythromycin, Lipitor [Atorvastatin], Meloxicam, Naproxen, Percocet [Oxycodone-Acetaminophen], Pravastatin, Risperidone, Sulfate Salt, Tramadol, and Zpack [Other] MEDICATIONS Current Outpatient Medications Medication Sig HYDROcodone-acetaminophen (NORCO) 5-325 mg per tablet Take 1 tablet by mouth every 6 hours as needed for pain. predniSONE (DELTASONE) 10 mg tablet Take 6 pills (all at once) on day 1, 5 pills on day 2, 4 pills on day 3, 3 pills on day 4, 2 pills on day 5, and 1 pill on day 6. naproxen (NAPROSYN) 500 mg tablet Take 1 tablet by mouth twice daily as needed. FOR PAIN. TAKE WITH FOOD. acetaminophen (TYLENOL) 325 mg tablet Take 650 mg by mouth every 6 hours as needed. No current facility-administered medications for this visit. FAMILY HISTORY Problem Relation Age of Onset Cancer Paternal Grandfather PROSTATE Stroke Maternal Grandmother Diabetes Maternal Grandmother Coronary Artery Disease Maternal Grandmother Cancer Maternal Grandmother Cataract Maternal Grandmother Hypertension Maternal Grandfather Cataract Maternal Grandfather Diabetes Father Hypertension Father Cataract Father Diabetes Paternal Grandmother Social History Tobacco Use Smoking status: Former Packs/day: 0.25 Years: 15.00 Pack years: 3.75 Types: Cigarettes Quit date: 01/11/2020 Years since quittin.5 Smokeless tobacco: Never Substance Use Topics Alcohol use: No Drug use: No Types: Marijuana Comment: Remote marijuana use - has been clean for 11 years EXAM: BP 98/60 Pulse 98 Resp 18 SpO2 96% PHYSICAL EXAM: General Appearance: Well appearing, alert, in no acute distress, well-hydrated, well nourished.. Skin: Skin color, texture, turgor normal, no suspicious rashes or lesions. Head: Normocephalic, no masses, lesions, tenderness or abnormalities. Eyes: Anicteric sclera. Pupils are equally round and reactive to light. Extraocular movements are intact. Ears: External ears normal, canals clear. Normal TMs bilaterally. Oropharynx: Lips, mucosa, and tongue normal, teeth and gums normal, oropharynx normal. Neck: Supple, no adenopathy; thyroid symmetric, normal size, no bruits. Lungs: Lungs clear to auscultation. No wheezing, rhonchi, rales.. Heart: RRR without murmur, gallop, or rubs. No ectopy. Abdomen: Abdomen soft, non-tender. Bowel sounds normal. No masses, organomegaly. Extremities: No deformities, edema, skin discoloration, clubbing or cyanosis. Good capillary refill. Neurologic: Gait normal. ASSESSMENT/PLAN: 1. Viral upper respiratory tract infection - ICD9: 465.9, ICD10: J06.9 (primary diagnosis) - Discussed viral etiology and rationale for treatment. - Alere Strep Test negative, no culture pending - Symptomatic treatment with prn analgesia - Supportive care with fluids and rest - Follow up in one week if symptoms persist or sooner if worsening of symptoms - COVID WITH FLUA+B, ROUTINE - BROMPHENIRAMINE-PSEUDOEPHEDRINE- DM 2 MG-30 MG-10 MG/5 ML ORAL SYRUP 2. Sore throat - ICD9: 462, ICD10: J02.9 - suspect viral - Alere Strep Test negative, no culture pending - Discussed supportive care treatment with fluids, rest and analgesia. - The patient should follow up in one week if symptoms persist or worsen - STREP A MOLECULAR (POC) Discussed treatment plan and patient voices understanding. Patient's questions answered appropriately. Medications and potential side effects were discussed and patient voices understanding. Return to the office as scheduled or as needed for worsening/no improvement. Khushboo Cooper APRN.BROOKE The patient indicates understanding of these issues and agrees with the plan. documented in this encounter [facility] 06-22-2022 Note HNO ID: [id number] Author: Hai Reeder MD Service: ? Author Type: Physician Type: Progress Notes Filed: 07/07/2022 4:54 PM Note Text: Hai Reeder MD Department of Orthopaedics [facility] [address] [place] [address] Dept: [phone] Dept June 22, 2022 CHIEF COMPLAINT: New Patient and Pain of the Right Shoulder HPI Patient referred by Dr. Luz for R shoulder pain that started 3 weeks ago. Per patient no injury, she just woke up with the pain. She's had an XR on 06/03/22 and was given a sling by Dr. Luz. She has since stopped wearing sling because it doesn't do much. Heat seems to help. She was seen at [facility] ER for shoulder pain on 06/10/22 and was prescribed hydrocodone-acetaminophen which helps but she only takes it at night. Patient is R hand dominant and works at [employer] where she is constantly reaching, stocking, pushing and pulling. 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 We will try some physical therapy and in the meantime a prednisone taper followed up with anti-inflammatory. FOLLOW UP INSTRUCTIONS: As needed Ms. Pete Wright was advised as to contrast therapies and/or to take analgesics/anti-inflammatories as needed and all contraindications were reviewed. OBJECTIVE: Ms. Pete Wright is a pleasant 41 year old in no apparent distress. Gen:There were no vitals taken for this visit. nl development, obese, no deformities ENT: Normocephalic, normal hearing, moist mucosa CV: Pulses:Radial= 2+ and symmetric, capillary refill < 2 secs, no peripheral edema/varicosities Skin: no rash, bruising or lesions. Good turgor. Psych: cooperative and appropriate, alert and oriented x 3, good mood and affect. Musculoskeletal: Supple range of motion of the cervical spine without pain. Spurling signs are negative. No atrophy of the deltoid and shoulder musculature. Right shoulder is nontender to palpation over the SC joint, clavicle and AC joint. No tenderness to palpation over the posterior shoulder, positive tenderness palpation over the anterior lateral corner of the shoulder and greater tuberosity. Nonpainful at the bicipital groove and coracoid. Active range of motion is 140 degrees of forward elevation, 50 degrees external rotation, and internal rotation to the low lumbar spine. Passive range of motion is symmetrical, limited by pain, respectively. No laxity with anterior and posterior stress. Positive Neer and Marie impingement signs. 4/5 strength with supraspinatus, infraspinatus and subscapularis. Sensation is intact in the axillary, radial, median and ulnar nerve distribution IMAGING: IMPRESSION: Findings are suggestive of degenerative changes in the acromioclavicular joint. [employer]: ROBERTS CHAPELJose Transcribe Date/Time: Jun 05 2022 4:52P Dictated by : ABE BINGHAM MD This examination was interpreted and the report reviewed and electronically signed by: ABE BINGHAM MD on Jun 05 2022 4:54PM EST Results-Findings * * *Final Report* * * DATE OF EXAM: Jun 03 2022 4:10PM WOX [id number] - XR SHLDR >/=3V AP/MARSHALL AP/OTHR RT / PROCEDURE REASON: Acute pain of right shoulder * * * * Physician Interpretation * * * * EXAM TITLE: XR SHLDR >/=3V AP/MARSHALL AP/OTHR RT EXAM DATE/TIME: 06/03/2022 4:10 PM COMPARISON: None. CLINICAL INDICATION/HISTORY: Shoulder pain. TECHNIQUE: AP, true AP and axillary views of the right shoulder are presented FINDINGS: No acute fractures or subluxations are noted. There appears be mild acromioclavicular joint space narrowing, with associated osteophyte formation. The glenohumeral joint appears unremarkable. Normal acromiohumeral interval. The mineralization of the bones is normal. There is no significant soft tissue swelling. Supporting Subjective Information Below: Past Medical History: PAST MEDICAL HISTORY Diagnosis Date Bowel obstruction (HCC) April 2009 and Bowel Rupture Chronic abdominal pain 05/22/2011 History of recurrent miscarriages Hyperlipidemia PMH - PAST MEDICAL HISTORY OF Tubal x2 Past Surgical History: PAST SURGICAL HISTORY Procedure Laterality Date APPENDECTOMY CHOLECYSTECTOMY Cholecystectomy CONSULT TO COLO-RECTAL SURGERY 04/14/2008,04/16/2008 [facility] EXPLORATORY LAPAROTOMY CELIOTOMY W/WO BIOPSY SP (more content not included)... [facility] 06-22-2022 History of Presen t illness Narrative Hai Reeder MD Department of Orthopaedics Orthopaedics [address] [facility] [address] Dept: [phone] Dept June 22, 2022 CHIEF COMPLAINT: New Patient and Pain of the Right Shoulder HPI Patient referred by Dr. Luz for R shoulder pain that started 3 weeks ago. Per patient no injury, she just woke up with the pain. She's had an XR on 06/03/22 and was given a sling by Dr. Luz. She has since stopped wearing sling because it doesn't do much. Heat seems to help. She was seen at [facility] ER for shoulder pain on 06/10/22 and was prescribed hydrocodone-acetaminophen which helps but she only takes it at night. Patient is R hand dominant and works at [employer] where she is constantly reaching, stocking, pushing and pulling. 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 We will try some physical therapy and in the meantime a prednisone taper followed up with anti-inflammatory. FOLLOW UP INSTRUCTIONS: As needed Ms. Pete Wright was advised as to contrast therapies and/or to take analgesics/anti-inflammatories as needed and all contraindications were reviewed. OBJECTIVE: Ms. Pete Wright is a pleasant 41 year old in no apparent distress. Gen:There were no vitals taken for this visit. nl development, obese, no deformities ENT: Normocephalic, normal hearing, moist mucosa CV: Pulses:Radial= 2+ and symmetric, capillary refill < 2 secs, no peripheral edema/varicosities Skin: no rash, bruising or lesions. Good turgor. Psych: cooperative and appropriate, alert and oriented x 3, good mood and affect. Musculoskeletal: Supple range of motion of the cervical spine without pain. Spurling signs are negative. No atrophy of the deltoid and shoulder musculature. Right shoulder is nontender to palpation over the SC joint, clavicle and AC joint. No tenderness to palpation over the posterior shoulder, positive tenderness palpation over the anterior lateral corner of the shoulder and greater tuberosity. Nonpainful at the bicipital groove and coracoid. Active range of motion is 140 degrees of forward elevation, 50 degrees external rotation, and internal rotation to the low lumbar spine. Passive range of motion is symmetrical, limited by pain, respectively. No laxity with anterior and posterior stress. Positive Neer and Marie impingement signs. 4/5 strength with supraspinatus, infraspinatus and subscapularis. Sensation is intact in the axillary, radial, median and ulnar nerve distribution IMAGING: IMPRESSION: Findings are suggestive of degenerative changes in the acromioclavicular joint. [employer]: [facility] Transcribe Date/Time: Jun 05 2022 4:52P Dictated by : ABE BINGHAM MD This examination was interpreted and the report reviewed and electronically signed by: ABE BINGHAM MD on Jun 05 2022 4:54PM EST Results-Findings * * *Final Report* * * DATE OF EXAM: Jun 03 2022 4:10PM WOX [id number] - XR SHLDR >/=3V AP/MARSHALL AP/OTHR RT / PROCEDURE REASON: Acute pain of right shoulder * * * * Physician Interpretation * * * * EXAM TITLE: XR SHLDR >/=3V AP/MARSHALL AP/OTHR RT EXAM DATE/TIME: 06/03/2022 4:10 PM COMPARISON: None. CLINICAL INDICATION/HISTORY: Shoulder pain. TECHNIQUE: AP, true AP and axillary views of the right shoulder are presented FINDINGS: No acute fractures or subluxations are noted. There appears be mild acromioclavicular joint space narrowing, with associated osteophyte formation. The glenohumeral joint appears unremarkable. Normal acromiohumeral interval. The mineralization of the bones is normal. There is no significant soft tissue swelling. Supporting Subjective Information Below: Past Medical History: PAST MEDICAL HISTORY Diagnosis Date Bowel obstruction (HCC) April 2009 and Bowel Rupture Chronic abdominal pain 05/22/2011 History of recurrent miscarriages Hyperlipidemia PMH - PAST MEDICAL HISTORY OF Tubal x2 Past Surgical History: PAST SURGICAL HISTORY Procedure Laterality Date APPENDECTOMY CHOLECYSTECTOMY Cholecystectomy CONSULT TO COLO-RECTAL SURGERY 04/14/2008,04/16/2008 [facility] EXPLORATORY LAPAROTOMY CELIOTOMY W/WO BIOPSY SPX Laparotomy, exp. Adhesiolysis. Abdominal wall resection (mesh included), primary closure. OOPHORECTOMY PARTIAL/TOTAL UNI/BI just one left ovary and both tubes OOPHORECTOMY PARTIAL/TOTAL UNI/BI 2007 dr. [facility] right ovary PAST SURGICAL HISTORY OF Bowel resection PAST SURGICAL HISTORY OF 01/25/2020 SBO: exp lap, BHARATH, small bowel resection Dr. Sumit Cutler [facility] will TOTAL ABDOMINAL HYSTERECT W/WO RMVL TUBE OVARY 09/2005 after vag delivery-hemorrhage, AT/WB Family History: FAMILY HISTORY Problem Relation Age of Onset Cancer Paternal Grandfather PROSTATE Stroke Maternal Grandmother Diabetes Maternal Grandmother Coronary Artery Disease Maternal Grandmother Cancer Maternal Grandmother Cataract Maternal Grandmother Hypertension Maternal Grandfather Cataract Maternal Grandfather Diabetes Father Hypertension Father Cataract Father Diabetes Paternal Grandmother Social History: Social History Tobacco Use Smoking status: Former Packs/day: 0.25 Years: 15.00 Pack years: 3.75 Types: Cigarettes Quit date: 01/11/2020 Years since quittin.4 Smokeless tobacco: Never Substance Use Topics Alcohol use: No Drug use: No Types: Marijuana Comment: Remote marijuana use - has been clean for 11 years Medications: Current Outpatient Medications Medication Sig HYDROcodone-acetaminophen (NORCO) 5-325 mg per tablet Take 1 tablet by mouth every 6 hours as needed for pain. acetaminophen (TYLENOL) 325 mg tablet Take 650 mg by mouth every 6 hours as needed. No current facility-administered medications for this visit. Allergies: Amoxicillin, Darvocet A500 [Propoxyphene N-Acetaminophen], Dilaudid [Hydromorphone (Bulk)], Erythromycin, Lipitor [Atorvastatin], Meloxicam, Naproxen, Percocet [Oxycodone-Acetaminophen], Pravastatin, Risperidone, Sulfate Salt, Tramadol, and Zpack [Other] ROS: General (negative for fatigue, malaise, weight loss/gain) HEENT (negative for headache, earache, recent vision changes, sinus pain, sore throat) Respiratory (no recent shortness of breath, hemoptysis) CV (negative for chest tightness, palpitations) Musculoskeletal (see HPI) Psych (no depression, anxiety) REFERRING PHYSICIAN: Consultation requested by Dr. Luz for an opinion regarding right shoulder pain. My final recommendations will be communicated back to the requesting physician by way of shared Medical record or letter to requesting physician via US mail. America Luz [id number] [facility] [id number] Hai Reeder MD documented in this encounter [facility] 06-08-2022 Miscellaneous Notes Patient notified. Xray shows mild degenerative changes. See ortho as we already ordered documented in this encounter [facility] 06-03-2022 Note HNO ID: [id number] Author: RT Jori(R) Service: Nuclear Medicine Author Type: Technologist Type: Progress Notes Filed: 06/03/2022 4:33 PM Note Text: Radiology Service Progress Note PATIENT NAME: Pete Wright DATE OF SERVICE: June 03, 2022 TIME: 4:18 PM PATIENT IDENTITY VERIFICATION COMPLETED USING TWO (2) IDENTIFIERS: Name and Date of confirmed by patient verbally. FALL SCREENING: Has the patient had 2 falls in the last year or 1 fall with injury or currently using an Ambulatory Assistive Device (Walker, Cane, Wheelchair, Crutches, etc.)? No PATIENT GENDER DATA: Female. status: : No status: NO. PATIENT RELEVANT IMPLANT DATA REVIEWED: Not Applicable RADIOLOGY DEPARTMENT: General X-ray: Exam(s) Completed: Upper Extremity X-Ray(s): Shoulder, AP / TRUE AP / AXILLARY right PERIPHERAL IV DATA: Not applicable SIGNED BY: RT Jori(R) June 03, 2022 4:18 PM [facility] 06-03-2022 Note HNO ID: [id number] Author: America Luz MD Service: ? Author Type: Physician Type: Progress Notes Filed: 06/03/2022 3:48 PM Note Text: Patient presents with: Pain (Shoulder Pain): right HPI: Patient presents today for office visit for follow up. HOSPITAL/ER FOLLOW UP: Reason for visit: right shoulder pain Which facility: [facility] Date of visit: 06/02/22 Diagnosis: right shoulder tendiitis Treatment given: augie states that makes her too sleepy Current symptoms: did have some numbness Asking about light duty Working at [employer] Also asking about a splint Whole are is painful. She cannot move it. Started four days ago a little. Much worse starting yesterday. Can get uncomfortable. Cannot use steroids, nsaids or pain pills Is using tylenol. Was referred to ortho by ER MEDICATIONS: Current Outpatient Medications Medication Sig hydrocortisone 0.5 % cream Apply to affected area twice daily. Be very careful not to get cream in eye. acetaminophen (TYLENOL) 325 mg tablet Take 650 mg by mouth every 6 hours as needed. calcium carb/magnesium hydrox (ROLAIDS ORAL) Take 1 tablet by mouth as needed. (Patient not taking: Reported on 04/28/2022) colestipol (COLESTID) 1 gram tablet Take 1 tablet by mouth twice daily. (Patient not taking: Reported on 04/28/2022) omeprazole (PRILOSEC) 20 mg capsule Take 1 capsule by mouth once daily. (Patient not taking: Reported on 01/03/2021 ) No current facility-administered medications for this visit. ALLERGIES: ALLERGIES Allergen Reactions Amoxicillin Hives Darvocet A500 [Prop* Mental Status Change Dilaudid [Hydromorp* Anaphylaxis Erythromycin Intolerance SHAKING Lipitor [Atorvastat* Vomiting Meloxicam Other: See Comments Severe Headache Naproxen Itching Percocet [Oxycodone* Shortness of Breath Pravastatin Itching Risperidone Swelling Keeping awake at night, fatigue during the day. Sulfate Salt Swelling Tramadol Intolerance Whole body shaking Zpack [Other] Mental Status Change PAST MEDICAL HISTORY Diagnosis Date Bowel obstruction (HCC) April 2009 and Bowel Rupture Chronic abdominal pain 05/22/2011 History of recurrent miscarriages Hyperlipidemia PMH - PAST MEDICAL HISTORY OF Tubal x2 PAST SURGICAL HISTORY Procedure Laterality Date APPENDECTOMY CHOLECYSTECTOMY Cholecystectomy CONSULT TO COLO-RECTAL SURGERY 04/14/2008,04/16/2008 [facility] EXPLORATORY LAPAROTOMY CELIOTOMY W/WO BIOPSY SPX Laparotomy, exp. Adhesiolysis. Abdominal wall resection (mesh included), primary closure. OOPHORECTOMY PARTIAL/TOTAL UNI/BI just one left ovary and both tubes OOPHORECTOMY PARTIAL/TOTAL UNI/BI 2007 dr. del rausch [facility] right ovary PAST SURGICAL HISTORY OF Bowel resection PAST SURGICAL HISTORY OF 01/25/2020 SBO: exp lap, BHARATH, small bowel resection Dr. Sumit Cutler [facility] [place] will TOTAL ABDOMINAL HYSTERECT W/WO RMVL TUBE OVARY 09/2005 after vag delivery-hemorrhage, AT/WB FAMILY HISTORY Problem Relation Age of Onset Cancer Paternal Grandfather PROSTATE Stroke Maternal Grandmother Diabetes Maternal Grandmother Coronary Artery Disease Maternal Grandmother Cancer Maternal Grandmother Cataract Maternal Grandmother Hypertension Maternal Grandfather Cataract Maternal Grandfather Diabetes Father Hypertension Father Cataract Father Diabetes Paternal Grandmother Social History Tobacco Use Smoking status: Former Packs/day: 0.25 Years: 15.00 Pack years: 3.75 Types: Cigarettes Quit date: 01/11/2020 Years since quittin.3 Smokeless tobacco: Never Substance Use Topics Alcohol use: No Drug use: No Types: Marijuana Comment: Remote marijuana use - has been clean for 11 years Reviewed current medications, allergies, past medical history, surgical history, family history and social history today. REVIEW OF SYSTEMS All other reviewed and negative other than HPI. HEALTH MAINTENANCE: Reviewed health maintenance issues today and recommended the following in detail. MAMMOGRAM -recommended. VITALS: BP 102/62 Pulse 83 Wt 92.1 kg (203 lb) SpO2 95% BMI 35.97 kg/m? Last 4 Encounter Wt Readings: Date: Wt: 04/28/2022 91.6 kg (202 lb) 06/09/2021 89.4 kg (197 lb) 05/16/2021 89 kg (196 lb 1.9 oz) 04/15/2021 87.5 kg (193 lb) PHYSICAL EXAMINATION: General appearance: Well appearing, alert, in no acute distress, well-hydrated, well nourished. Skin: Skin color, texture, turgor normal, no suspicious rashes or lesions Head: Normocephalic, no masses, lesions, tenderness or abnormalities Extremities: No deformities, edema, skin discoloration, clubbing or cyanosis. Good capillary refill. Exam is very limited due to discomfort.decreased range of motion. Normal dtr's. Normal sensation. ASSESSMENT/PLAN: 1. Hyperlipidemia, unspecified hyperlipidemia type - ICD9: 272.4, ICD10: E78.5 (primary diagnosi (more content not included)... [facility] 06-03-2022 Miscellaneous Notes Addended by: AMERICA LUZ on: 06/03/2022 04:17 PM Modules accepted: Orders documented in this encounter [facility] 06-03-2022 History of Presen t illness Narrative Patient presents with: Pain (Shoulder Pain): right HPI: Patient presents today for office visit for follow up. HOSPITAL/ER FOLLOW UP: Reason for visit: right shoulder pain Which facility: [facility] Date of visit: 06/02/22 Diagnosis: right shoulder tendiitis Treatment given: norjoshua states that makes her too sleepy Current symptoms: did have some numbness Asking about light duty Working at [employer] Also asking about a splint Whole are is painful. She cannot move it. Started four days ago a little. Much worse starting yesterday. Can get uncomfortable. Cannot use steroids, nsaids or pain pills Is using tylenol. Was referred to ortho by ER MEDICATIONS: Current Outpatient Medications Medication Sig hydrocortisone 0.5 % cream Apply to affected area twice daily. Be very careful not to get cream in eye. acetaminophen (TYLENOL) 325 mg tablet Take 650 mg by mouth every 6 hours as needed. calcium carb/magnesium hydrox (ROLAIDS ORAL) Take 1 tablet by mouth as needed. (Patient not taking: Reported on 04/28/2022) colestipol (COLESTID) 1 gram tablet Take 1 tablet by mouth twice daily. (Patient not taking: Reported on 04/28/2022) omeprazole (PRILOSEC) 20 mg capsule Take 1 capsule by mouth once daily. (Patient not taking: Reported on 01/03/2021 ) No current facility-administered medications for this visit. ALLERGIES: ALLERGIES Allergen Reactions Amoxicillin Hives Darvocet A500 [Prop* Mental Status Change Dilaudid [Hydromorp* Anaphylaxis Erythromycin Intolerance SHAKING Lipitor [Atorvastat* Vomiting Meloxicam Other: See Comments Severe Headache Naproxen Itching Percocet [Oxycodone* Shortness of Breath Pravastatin Itching Risperidone Swelling Keeping awake at night, fatigue during the day. Sulfate Salt Swelling Tramadol Intolerance Whole body shaking Zpack [Other] Mental Status Change PAST MEDICAL HISTORY Diagnosis Date Bowel obstruction (HCC) April 2009 and Bowel Rupture Chronic abdominal pain 05/22/2011 History of recurrent miscarriages Hyperlipidemia PMH - PAST MEDICAL HISTORY OF Tubal x2 PAST SURGICAL HISTORY Procedure Laterality Date APPENDECTOMY CHOLECYSTECTOMY Cholecystectomy CONSULT TO COLO-RECTAL SURGERY 04/14/2008,04/16/2008 [facility] EXPLORATORY LAPAROTOMY CELIOTOMY W/WO BIOPSY SPX Laparotomy, exp. Adhesiolysis. Abdominal wall resection (mesh included), primary closure. OOPHORECTOMY PARTIAL/TOTAL UNI/BI just one left ovary and both tubes OOPHORECTOMY PARTIAL/TOTAL UNI/BI 2007 dr. del rausch [facility] right ovary PAST SURGICAL HISTORY OF Bowel resection PAST SURGICAL HISTORY OF 01/25/2020 SBO: exp lap, BHARATH, small bowel resection Dr. Sumit Cutler [facility] will TOTAL ABDOMINAL HYSTERECT W/WO RMVL TUBE OVARY 09/2005 after vag delivery-hemorrhage, AT/WB FAMILY HISTORY Problem Relation Age of Onset Cancer Paternal Grandfather PROSTATE Stroke Maternal Grandmother Diabetes Maternal Grandmother Coronary Artery Disease Maternal Grandmother Cancer Maternal Grandmother Cataract Maternal Grandmother Hypertension Maternal Grandfather Cataract Maternal Grandfather Diabetes Father Hypertension Father Cataract Father Diabetes Paternal Grandmother Social History Tobacco Use Smoking status: Former Packs/day: 0.25 Years: 15.00 Pack years: 3.75 Types: Cigarettes Quit date: 01/11/2020 Years since quittin.3 Smokeless tobacco: Never Substance Use Topics Alcohol use: No Drug use: No Types: Marijuana Comment: Remote marijuana use - has been clean for 11 years Reviewed current medications, allergies, past medical history, surgical history, family history and social history today. REVIEW OF SYSTEMS All other reviewed and negative other than HPI. HEALTH MAINTENANCE: Reviewed health maintenance issues today and recommended the following in detail. MAMMOGRAM -recommended. VITALS: BP 102/62 Pulse 83 Wt 92.1 kg (203 lb) SpO2 95% BMI 35.97 kg/m Last 4 Encounter Wt Readings: Date: Wt: 04/28/2022 91.6 kg (202 lb) 06/09/2021 89.4 kg (197 lb) 05/16/2021 89 kg (196 lb 1.9 oz) 04/15/2021 87.5 kg (193 lb) PHYSICAL EXAMINATION: General appearance: Well appearing, alert, in no acute distress, well-hydrated, well nourished. Skin: Skin color, texture, turgor normal, no suspicious rashes or lesions Head: Normocephalic, no masses, lesions, tenderness or abnormalities Extremities: No deformities, edema, skin discoloration, clubbing or cyanosis. Good capillary refill. Exam is very limited due to discomfort.decreased range of motion. Normal dtr's. Normal sensation. ASSESSMENT/PLAN: 1. Hyperlipidemia, unspecified hyperlipidemia type - ICD9: 272.4, ICD10: E78.5 (primary diagnosis) - check labs. - CBC + DIFF - COMP METABOLIC PANEL - LIPID PANEL BASIC 2. Acute pain of right shoulder - ICD9: 719.41, ICD10: M25.511 - refer to ortho. Heat and tylenol prn. - XR SHOULDER GENERAL 3V OR MORE AP/TRUE AP/OTHER LEFT - CONSULT TO ORTHOPAEDICS - SHARON ARM America Luz MD documented in this encounter [facility] 04-28-2022 Note HNO ID: [id number] Author: Sophy Hampton PA-C Service: ? Author Type: Physician [employer] Type: Progress Notes Filed: 04/28/2022 6:56 PM Note Text: Subjective HPI HPI Pete Wright is a 41 year old female who presents today for CC of itching/burning eye since this morning (clarified as both eye and surrounding skin). Also excessive tearing and was matted this morning with yellow purulent gunk. No associated URI symptoms. Denies any visual changes or pain per se. Notes that her cat constantly lays on her face, but denies any cat allergies. Pt has tried flushing it with warm water. BP 102/64 Pulse 84 Temp 37.1 ?C (98.7 ?F) Resp 16 Wt 91.6 kg (202 lb) SpO2 96% BMI 35.79 kg/m? ALLERGIES Allergen Reactions Amoxicillin Hives Darvocet A500 [Prop* Mental Status Change Dilaudid [Hydromorp* Anaphylaxis Erythromycin Intolerance SHAKING Lipitor [Atorvastat* Vomiting Meloxicam Other: See Comments Severe Headache Naproxen Itching Percocet [Oxycodone* Shortness of Breath Pravastatin Itching Risperidone Swelling Keeping awake at night, fatigue during the day. Sulfate Salt Swelling Tramadol Intolerance Whole body shaking Zpack [Other] Mental Status Change ACTIVE PROBLEM LIST Tobacco Use Disorder Climacteric Chronic Abdominal Pain Bipolar 1 Disorder (Hcc) Hyperlipidemia Premature Surgical Menopause Growth of eyelid - Left Eye Other vitreous opacities - Both Eyes Single Subsegmental Pulmonary Embolism Without Acute Cor Pulmonale (Hcc) Generalized Abdominal Pain Encounter for Support and Coordination of Transition of Care Family History Problem Relation Age of Onset Cancer Paternal Grandfather PROSTATE Stroke Maternal Grandmother Diabetes Maternal Grandmother Coronary Artery Disease Maternal Grandmother Cancer Maternal Grandmother Cataract Maternal Grandmother Hypertension Maternal Grandfather Cataract Maternal Grandfather Diabetes Father Hypertension Father Cataract Father Diabetes Paternal Grandmother Social History Tobacco Use Smoking status: Former Packs/day: 0.25 Years: 15.00 Pack years: 3.75 Types: Cigarettes Quit date: 01/11/2020 Years since quittin.2 Smokeless tobacco: Never Substance Use Topics Alcohol use: No Drug use: No Types: Marijuana Comment: Remote marijuana use - has been clean for 11 years Review of Systems Constitutional: Negative for chills, fever and malaise/fatigue. HENT: Negative for congestion, ear pain, sinus pain and sore throat. Eyes: Positive for discharge and redness. Negative for blurred vision, double vision, photophobia and pain. Respiratory: Negative for cough. Objective BP 102/64 Pulse 84 Temp 37.1 ?C (98.7 ?F) Resp 16 Wt 91.6 kg (202 lb) SpO2 96% BMI 35.79 kg/m? Physical Exam Eyes: Comments: No conjunctival injection or drainage that I can appreciate on exam. Erythema and edema of upper and lower lid L side ASSESSMENT/PLAN: 1. Eye irritation - ICD9: 379.99, ICD10: H57.89 (primary diagnosis) Will cover with antibiotic gtt in the case there's a bacterial component, however I feel there could be allergic component based on appearance/clinical hx. Will also tx upper and lower lids with lower strength steroid. INB come tomorrow, still start on oral steroid burst. - POLYMYXIN B SULFATE 10,000 UNIT-TRIMETHOPRIM 1 MG/ML EYE DROPS 2. Blepharitis of both upper and lower eyelid of left eye, unspecified type - ICD9: 373.00, ICD10: H01.00B See above - HYDROCORTISONE 0.5 % TOPICAL CREAM - PREDNISONE 20 MG TABLET Pt advised to see eye doctor if symptoms persist or progress. Reviewed red flags with patient and when to seek care sooner. The patient indicates understanding of these issues and agrees with the plan. Sophy Hampton PA-C [facility] 04-28-2022 History of Presen t illness Narrative Images from the original note were not included. Subjective HPI HPI Pete Wright is a 41 year old female who presents today for CC of itching/burning eye since this morning (clarified as both eye and surrounding skin). Also excessive tearing and was matted this morning with yellow purulent gunk. No associated URI symptoms. Denies any visual changes or pain per se. Notes that her cat constantly lays on her face, but denies any cat allergies. Pt has tried flushing it with warm water. BP 102/64 Pulse 84 Temp 37.1 C (98.7 F) Resp 16 Wt 91.6 kg (202 lb) SpO2 96% BMI 35.79 kg/m ALLERGIES Allergen Reactions Amoxicillin Hives Darvocet A500 [Prop* Mental Status Change Dilaudid [Hydromorp* Anaphylaxis Erythromycin Intolerance SHAKING Lipitor [Atorvastat* Vomiting Meloxicam Other: See Comments Severe Headache Naproxen Itching Percocet [Oxycodone* Shortness of Breath Pravastatin Itching Risperidone Swelling Keeping awake at night, fatigue during the day. Sulfate Salt Swelling Tramadol Intolerance Whole body shaking Zpack [Other] Mental Status Change ACTIVE PROBLEM LIST Tobacco Use Disorder Climacteric Chronic Abdominal Pain Bipolar 1 Disorder (Hcc) Hyperlipidemia Premature Surgical Menopause Growth of eyelid - Left Eye Other vitreous opacities - Both Eyes Single Subsegmental Pulmonary Embolism Without Acute Cor Pulmonale (Hcc) Generalized Abdominal Pain Encounter for Support and Coordination of Transition of Care Family History Problem Relation Age of Onset Cancer Paternal Grandfather PROSTATE Stroke Maternal Grandmother Diabetes Maternal Grandmother Coronary Artery Disease Maternal Grandmother Cancer Maternal Grandmother Cataract Maternal Grandmother Hypertension Maternal Grandfather Cataract Maternal Grandfather Diabetes Father Hypertension Father Cataract Father Diabetes Paternal Grandmother Social History Tobacco Use Smoking status: Former Packs/day: 0.25 Years: 15.00 Pack years: 3.75 Types: Cigarettes Quit date: 01/11/2020 Years since quittin.2 Smokeless tobacco: Never Substance Use Topics Alcohol use: No Drug use: No Types: Marijuana Comment: Remote marijuana use - has been clean for 11 years Review of Systems Constitutional: Negative for chills, fever and malaise/fatigue. HENT: Negative for congestion, ear pain, sinus pain and sore throat. Eyes: Positive for discharge and redness. Negative for blurred vision, double vision, photophobia and pain. Respiratory: Negative for cough. Objective BP 102/64 Pulse 84 Temp 37.1 C (98.7 F) Resp 16 Wt 91.6 kg (202 lb) SpO2 96% BMI 35.79 kg/m Physical Exam Eyes: Comments: No conjunctival injection or drainage that I can appreciate on exam. Erythema and edema of upper and lower lid L side ASSESSMENT/PLAN: 1. Eye irritation - ICD9: 379.99, ICD10: H57.89 (primary diagnosis) Will cover with antibiotic gtt in the case there's a bacterial component, however I feel there could be allergic component based on appearance/clinical hx. Will also tx upper and lower lids with lower strength steroid. INB come tomorrow, still start on oral steroid burst. - POLYMYXIN B SULFATE 10,000 UNIT-TRIMETHOPRIM 1 MG/ML EYE DROPS 2. Blepharitis of both upper and lower eyelid of left eye, unspecified type - ICD9: 373.00, ICD10: H01.00B See above - HYDROCORTISONE 0.5 % TOPICAL CREAM - PREDNISONE 20 MG TABLET Pt advised to see eye doctor if symptoms persist or progress. Reviewed red flags with patient and when to seek care sooner. The patient indicates understanding of these issues and agrees with the plan. 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 Initial contact with patient post discharge, spoke to patient. Patient identified by name and . TRANSITION CARE MANAGEMENT INITIAL OUTREACH DOCUMENTATION: No flowsheet data found. SUMMARY: -Pt discharged from [facility] on 03/13/2022. -Admitted for: 03/09/2022 Do you have a hospital follow up appointment with your PCP? Appointment on with No. Patient said can not schedule appt right now does not know her work schedule yet, She works 2 jobs. She gets her schedules a week at a time. MEDICATIONS: Many patients have questions or concerns about their medications once they are home. Were you prescribed any new medications? No Were you told to hold any medications? No Were any of your medications discontinued? No Do you have any questions about getting or taking your medications? No Your discharge instructions/After visit Summary (AVS) are important in guiding you through the recovery process. Is there anything I might help you understand? Yes, did receive discharge instructions/AVS . Restate [facility] from [facility] verbally, copy/paste via [facility], mail, or provide in person. Do you have all the necessary equipment and supplies at home? No, follow site specific process to secure durable medical equipment and/or supplies for the patient, handoff to RN/BINDERY TECHNICIAN, or LIP Medical records from recent hospitalization: Care Everywhere Attempted to reach patient. No answer, voicemail not set up. Kerry Fragoso Ma Please reach out for KWASI Duran: SBO and respiratory arrest , d/c 03/12/2022 and no appointment. Thanks, Gamaliel Ramos PA-C documented in this encounter [facility] 12-05-2021 Miscellaneous Notes Patient calling she was sent home from work Wednesday and did home COVID test was positive. Patient said she had sore throat, nothing else. Now she has a runny nose. Asking what can she take for her symptoms. [facility], patient thought she could go back to work already. Explained about the CDC guidelines to her. documented in this encounter [facility] 10-08-2021 Note Patient Outreach (IN [facility]) PETE WRIGHT ([id number]) 1980 F Date Time Provider Department 10/08/21 AMERICA LUZ During your visit today, we recorded the following information about you: Allergies As of Date: 10/08/2021 Noted Allergy Reaction AMOXICILLIN 12/16/2011 4 - Hives DARVOCET A500 (PROPOXYPHENE N-QIAN*05/22/2011 1 - Mental Status Change DILAUDID (HYDROMORPHONE (BULK)) 06/18/2014 10 - Anaphylaxis ERYTHROMYCIN 03/13/2010 5 - Intolerance Comments: SHAKING LIPITOR (ATORVASTATIN) 10/16/2013 11 - Vomiting MELOXICAM 05/08/2013 14 - Other: See Comments Comments: Severe Headache NAPROXEN 12/02/2020 9 - Itching PERCOCET (OXYCODONE-ACETAMINOPHEN) 011 12 - Shortness of Breath PRAVASTATIN 05/21/2016 9 - Itching RISPERIDONE 04/19/2014 7 - Swelling Comments: Keeping awake at night, fatigue during the day. SULFATE SALT 10/09/2005 7 - Swelling TRAMADOL 02/17/2013 5 - Intolerance Comments: Whole body shaking zpack [Other] 10/09/2005 1 - Mental Status Change Date Reviewed: 06/09/2021 Reviewed by: Giulia Rainey LPN - Fully Assessed Visit Diagnosis:Encounter for screening mammogram for breast cancer [Z12.31] Order(s):[facility] SCREENING [[id number]] Order #: [id number] FUTURE Prescriptions as of 10/13/2021 - acetaminophen (TYLENOL) 325 mg tablet Take 650 mg by mouth every 6 hours as needed. - calcium carb/magnesium hydrox (ROLAIDS ORAL) Take 1 tablet by mouth as needed. - colestipol (COLESTID) 1 gram tablet Take 1 tablet by mouth twice daily. - omeprazole (PRILOSEC) 20 mg capsule Take 1 capsule by mouth once daily. Problem List As Of Date 10/08/2021 Noted Resolved Other specified complication, antepartum [O99.8*09/15/2005 03/13/2010 Tobacco use disorder [F17.200] 01/23/2008 Unspecified disorders of bursae and tendons in *01/23/2008 03/13/2010 Climacteric [N95.1] 04/29/2009 Chronic abdominal pain [R10.9, G89.29] 05/22/2011 Closed nondisplaced fracture of fifth left meta*02/16/2013 09/15/2013 Bipolar 1 disorder [F31.9] 03/17/2013 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] 09/28/2013 Growth of eyelid - Left Eye [D49.2] 05/03/2014 Other vitreous opacities - Both Eyes [H43.399] 05/03/2014 Single subsegmental pulmonary embolism without *06/05/2020 Generalized abdominal pain [R10.84] 02/26/2021 Encounter Status:Closed by EPIC, PRODUSER on 10/13/21 [facility] documented as of this encounter (statuses as of 10/13/2021) [facility] History of Past illness Narrative* Problem Noted Date Resolved Date Closed nondisplaced fracture of fifth left metat arsal bone 02/16/2013 09/15/2013 Disorders of bursae and tend ons in shoulder region, unspecified 01/23/2008 03/13/2010 Other specified complication, antepartum(646.83) 09/15/2005 03/13/2010 documented as of this encounter (statuses as of 01/02/2022) [facility] History of Past illness Narrative* Problem Noted Date Resolved Date Closed nondisplaced fracture of fifth left metat arsal bone 02/16/2013 09/15/2013 Disorders of bursae and tend ons in shoulder region, unspecified 01/23/2008 03/13/2010 Other specified complication, antepartum(646.83) 09/15/2005 03/13/2010 documented as of this encounter (statuses as of 04/29/2022) [facility] History of Past illness Narrative* Problem Noted Date Resolved Date Closed nondisplaced fracture of fifth left metat arsal bone 02/16/2013 09/15/2013 Disorders of bursae and tend ons in shoulder region, unspecified 01/23/2008 03/13/2010 Other specified complication, antepartum(646.83) 09/15/2005 03/13/2010 documented as of this encounter (statuses as of 04/29/2022) [place] [address]-07-2013 History of Past illness Narrative* Problem Noted Date Resolved Date Closed nondisplaced fracture of fifth left metat arsal bone 02/16/2013 09/15/2013 Disorders of bursae and tend ons in shoulder region, unspecified 01/23/2008 03/13/2010 Other specified complication, antepartum(646.83) 09/15/2005 03/13/2010 documented as of this encounter (statuses as of 06/03/2022) [place] [address]-07-2013 History of Past illness Narrative* Problem Noted Date Resolved Date Closed nondisplaced fracture of fifth left metat arsal bone 02/16/2013 09/15/2013 Disorders of bursae and tend ons in shoulder region, unspecified 01/23/2008 03/13/2010 Other specified complication, antepartum(646.83) 09/15/2005 03/13/2010 documented as of this encounter (statuses as of 06/08/2022) [facility] History of Past illness Narrative* Problem Noted Date Resolved Date Closed nondisplaced fracture of fifth left metat arsal bone 02/16/2013 09/15/2013 Disorders of bursae and tend ons in shoulder region, unspecified 01/23/2008 03/13/2010 Other specified complication, antepartum(646.83) 09/15/2005 03/13/2010 documented as of this encounter (statuses as of 07/07/2022) [facility] History of Past illness Narrative* Problem Noted Date Resolved Date Closed nondisplaced fracture of fifth left metat arsal bone 02/16/2013 09/15/2013 Disorders of bursae and tend ons in shoulder region, unspecified 01/23/2008 03/13/2010 Other specified complication, antepartum(646.83) 09/15/2005 03/13/2010 documented as of this encounter (statuses as of 07/30/2022) [facility] History of Past illness Narrative* Problem Noted Date Resolved Date Closed nondisplaced fracture of fifth left metat arsal bone 02/16/2013 09/15/2013 Disorders of bursae and tend ons in shoulder region, unspecified 01/23/2008 03/13/2010 Other specified complication, antepartum(646.83) 09/15/2005 03/13/2010 documented as of this encounter (statuses as of 07/30/2022) [address]07-2013 History of Past illness Narrative* Problem Noted Date Resolved Date Closed nondisplaced fracture of fifth left metat arsal bone 02/16/2013 09/15/2013 Disorders of bursae and tend ons in shoulder region, unspecified 01/23/2008 03/13/2010 Other specified complication, antepartum(646.83) 09/15/2005 03/13/2010 documented as of this encounter (statuses as of 07/31/2022) [facility] History of Past illness Narrative* Problem Noted Date Resolved Date Closed nondisplaced fracture of fifth left metat arsal bone 02/16/2013 09/15/2013 Disorders of bursae and tend ons in shoulder region, unspecified 01/23/2008 03/13/2010 Other specified complication, antepartum(646.83) 09/15/2005 03/13/2010 documented as of this encounter (statuses as of 08/18/2022) [facility] note* Diagnosis Encounter for screening mammogram for breast cancer documented in this encounter [facility] note* Diagnosis Eye irritation- Primary Other ill-defined disorder of eye Blepharitis of both upper and lower eyelid of left eye, unspecified type documented in this encounter [facility] note* Diagnosis Hyperlipidemia, unspecified hyperlipidemia type- Primary Acute pain of right shoulder documented in this encounter [facility] note* Diagnosis Shoulder impingement- Primary Other affections of shoulder region, not elsewhere classified Acute pain of right shoulder documented in this encounter [facility] note* Diagnosis Viral upper respiratory tract infection- Primary Acute upper respiratory infections of unspecified site Sore throat Acute pharyngitis documented in this encounter [facility] note* Diagnosis Pain in lower jaw- Primary Jaw pain documented in this encounter [facility] for referral (narrative)* Diagnostic Procedure Only (Routine) - Pending Review Specialty Diagnoses / Procedures Referred By Burton barnes Referred To Contact BR IMAGING Diagnoses Encounter for screening mammogram for breast cancer Procedures MARCIAL SCREENING SCREENING MAMMOGRAPHY BI 2-VIEW BREAST INC CAD America Luz MD [address] [place] [address] [facility] [address] [place] [address] Referral ID Status Reason Start Date Expiration Date Visits Requested Visits Authorized [id number] Pending Review Auto-Generat ed Referral 10/08/2021 11/07/2022 1 1 [facility] for referral (narrative)* Diagnostic Procedure Only (Routine) - Closed Specialty Diagnoses / Procedures Referred By Burton barnes Referred To Contact XR IMAGING Diagnoses Acute pain of right shoulder Procedures XR SHOULDER GENERAL 3V OR MORE AP/TRUE AP/OTHER RIGHT RADEX SHOULDER COMPLETE MINIMUM 2 VIEWS America Luz MD [address] [place] [address] Xr Imaging Referral ID Status Reason Start Date Expiration Date V isits Requested Visits Authorized [id number] Closed Auto-Generate d Referral 06/03/2022 07/03/2023 1 1 * Consult, Test, Treat (Routine) - Authorized Specialty Diagnoses / Procedures Referred By Contac t Referred To Contact Orthopedics Diagnoses Acute pain of right shoulder Procedures CONSULT TO ORTHOPAEDICS OFFICE/OUTPATIENT [facility] 60-74 MINUTES America Luz MD [address] [place] [address] Referral ID Status Reason Start Date Expiration Date Visits Requested Visits Authorized [id number] Authorized PCP Requested Referral 06/03/2022 06/03/2023 1 1 [facility] Diagnostic Procedure Only (Urgent) - Closed Specialty Diagnoses / Procedures Referred By Contac t Referred To Contact XR IMAGING Diagnoses Pain in lower jaw Procedures XR MANDIBLE 4V PA/DEX/BOTH OBL RADIOLOG EXAM MANDIBLE COMPL MINIMUM 4 VIEWS [facility] [address] [place] [address] Xr Imaging Referral ID Status Reason Start Date Expiration Date V isits Requested Visits Authorized [id number] Closed Auto-Generate d Referral 08/18/2022 09/17/2023 1 1 [facility] Advance Directives No Advanced Directives Records FoundDocuments on File Type Date Recorded Patient Certified Surgical First Assistant Expl anation Advance Directive(s) Reason for Referral Specialty Diagnoses / Procedures Referred By Contac t Referred To Contact [facility] Diagnoses Acute pain of right shoulder Shoulder impingement M25.511 (ICD-10-CM) - Acute pain of right shoulder M25.819 (ICD-10-CM) - Shoulder impingement Procedures CONSULT TO PHYSICAL THERAPY PHYSICAL THERAPY EVALUATION HIGH COMPLEX 45 MINS Hai Reeder MD [address] [place] [address] [facility] [address] [place] [address] Referral ID Status Reason Start Date Expiration Date Visits Requested Visits Authorized [id number] Authorized Auto-Generat ed Referral 04/12/2022 04/11/2023 1 1 Summary Purpose Family History No Family History Records Found Additional Source Comments Source Comments (unrecognize d section and content) In the event this informatio n is protected by the Federal Confidentiality of Alcohol and Drug Abuse Patient Records regulations: The Federal rules restrict any use of the information to criminally investigate or prosecute any alcohol or drug abuse patient.[facility] the event this information is protected by the Federal Confidentiality of Alcohol and Drug Abuse Patient Records regulations: The Federal rules restrict any use of the information to criminally investigate or prosecute any alcohol or drug abuse patient.[facility] the event this information is protected by the Federal Confidentiality of Alcohol and Drug Abuse Patient Records regulations: The Federal rules restrict any use of the information to criminally investigate or prosecute any alcohol or drug abuse patient.[facility] the event this information is protected by the Federal Confidentiality of Alcohol and Drug Abuse Patient Records regulations: The Federal rules restrict any use of the information to criminally investigate or prosecute any alcohol or drug abuse patient.[facility] the event this information is protected by the Federal Confidentiality of Alcohol and Drug Abuse Patient Records regulations: The Federal rules restrict any use of the information to criminally investigate or prosecute any alcohol or drug abuse patient.[facility] the event this information is protected by the Federal Confidentiality of Alcohol and Drug Abuse Patient Records regulations: The Federal rules restrict any use of the information to criminally investigate or prosecute any alcohol or drug abuse patient.[facility] the event this information is protected by the Federal Confidentiality of Alcohol and Drug Abuse Patient Records regulations: The Federal rules restrict any use of the information to criminally investigate or prosecute any alcohol or drug abuse patient.[facility] the event this information is protected by the Federal Confidentiality of Alcohol and Drug Abuse Patient Records regulations: The Federal rules restrict any use of the information to criminally investigate or prosecute any alcohol or drug abuse patient.[facility] the event this information is protected by the Federal Confidentiality of Alcohol and Drug Abuse Patient Records regulations: The Federal rules restrict any use of the information to criminally investigate or prosecute any alcohol or drug abuse patient.[facility] the event this information is protected by the Federal Confidentiality of Alcohol and Drug Abuse Patient Records regulations: The Federal rules restrict any use of the information to criminally investigate or prosecute any alcohol or drug abuse patient.[facility] the event this information is protected by the Federal Confidentiality of Alcohol and Drug Abuse Patient Records regulations: The Federal rules restrict any use of the information to criminally investigate or prosecute any alcohol or drug abuse patient.[facility] the event this information is protected by the Federal Confidentiality of Alcohol and Drug Abuse Patient Records regulations: The Federal rules restrict any use of the information to criminally investigate or prosecute any alcohol or drug abuse patient.[facility] Care Teams (unrecognized sec tion and content) Energy Professional Relationship Specialty Start Date End Date America Luz MD [facility] [place] [address] PCP - General Family Medicine 07/05/17 Energy Professional Relationship Specialty Start Date End Date America Luz MD [address] [place] [id number] PCP - General Family Medicine 07/05/17 Energy Professional Relationship Specialty Start Date End Date America Luz MD [address] [place] [id number] PCP - General Family Medicine 07/05/17 Energy Professional Relationship Specialty Start Date End Date America Luz MD [address] [place] [id number] PCP - General Family Medicine 07/05/17 Energy Professional Relationship Specialty Start Date End Date America Luz MD [address] [place] [id number] PCP - General Family Medicine 07/05/17 Energy Professional Relationship Specialty Start Date End Date America Luz MD [address] [place] [address] [id number] PCP - General Family Medicine 07/05/17 Energy Professional Relationship Specialty Start Date End Date America Luz MD [address] [place], [place] [id number] PCP - General Family Medicine 07/05/17 Energy Professional Relationship Specialty Start Date End Date Amreica Luz MD [address] [place], [place] [id number] PCP - General Family Medicine 07/05/17 Energy Professional Relationship Specialty Start Date End Date America Luz MD [address] [place] [address] PCP - General Family Medicine 07/05/17 Reason for Visit (unrecogniz ed section and content) Reason Comments Eye Problem left eye red, swolle n and itching with drainage x 1 day Reason Comments Pain (Shoulder Pain) right Reason Comments Results Reason Comments New Patient Pain Specialty Diagnoses / Procedures Referred By Burton t Referred To Contact Orthopedics Diagnoses Acute pain of right shoulder Procedures CONSULT TO ORTHOPAEDICS OFFICE/OUTPATIENT NEW HIGH MDM 60-74 MINUTES America Luz MD [address] [place] [address] Referral ID Status Reason Start Date Expiration Date V isits Requested Visits Authorized [id number] Closed PCP Requested Referral 06/03/2022 06/03/2023 1 1 Reason Comments Acute Visit URI symptoms x3 days ; has missed the last 2 days of work Reason Onset Date Comments Orders 07/30/2022 Mammogram Reason Comments Pain Pt reported Hx TMJ ( RT) jaw pain, swelling, x2 days. INFORMATION SOURCE (unrecogn ized section and content) FOR RECORDS PERTAINING TO PATIENTS WHO ARE OR HAVE BEEN ENROLLED IN A CHEMICAL DEPENDENCY/SUBSTANCEABUSE PROGRAM, SOME INFORMATION MAY BE OMITTED. This clinical summary was aggregated from multiple sources. Caution should be exercised in using it in the provision of clinical care. This summary normalizes information from multiple sources, and as a consequence, information in this document may materially change the coding, format and clinical context of patient data. In addition, data may be omitted in some cases. CLINICAL DECISIONS SHOULD BE BASED ON THE PRIMARY CLINICAL RECORDS. [facility]. provides no warranty or guarantee of the accuracy or completeness of information in this document.
[2023-04-12 23:51] VITALS: RESP 16
--- NOTE | 2023-04-13 00:35 | CT_ITS ---
EXAM: CT abdomen and pelvis with contrast. HISTORY: abnormal x-ray / ? SBO TECHNIQUE: CT Abdomen And Pelvis W/ Contrast Injection. A radiation dose optimization technique was used for this scan. COMPARISON: CT abdomen and pelvis October 06, 2022. LIMITATIONS: Motion artifact. LOWER CHEST: Linear atelectasis in the lung bases bilaterally. LIVER: Hypodensity in the right lobe may represent a cyst, but is too small to characterize, stable since the prior exam. GALLBLADDER: Normal. BILE DUCTS: Normal. PANCREAS: Normal. SPLEEN: Normal. ADRENAL GLANDS: Normal. KIDNEYS/URETERS/BLADDER: No hydronephrosis. No renal stones. Mild right hydroureter, similar to the prior exam. No ureteral stone identified. AORTA: Normal caliber. BOWEL/MESENTERY: Small bowel anastomosis in the left lower quadrant as on the prior exam. Dilatation of few loops of small bowel in the region of the anastomosis as before. No new or diffuse small bowel dilatation to suggest acute small bowel obstruction. No evidence of colitis. APPENDIX: Not visualized. PERITONEUM: Normal. REPRODUCTIVE ORGANS: Hysterectomy. BONES/SOFT TISSUES: No acute fracture. OTHER: None. CONCLUSION: Dilatation of few loops of small bowel near the anastomosis in the left lower quadrant. The appearance is grossly similar to the prior exam. No diffuse small bowel dilatation to suggest bowel obstruction. Electronically Signed: Miguel Lazcano MD at 2:19 EST , CT/Abdomen/Pelvis W IV Cont ONLY IMPRESSION: undefined
[2023-04-13] MEDS: Ketorolac 30 MG/ML Syringe IV (00:40)
[2023-04-13] MEDS: Morphine 4 MG/ML Syringe IV (00:41)
[2023-04-13 01:00] VITALS: RESP 16
--- NOTE | 2023-04-13 01:10 | EDS_ITS ---
HPI History of Present Illness Chief Complaint: Abd Pain Informant: patient Narrative Narrative: Patient is a 42-year-old female with past medical history of intestinal anastomoses and previous bowel obstruction secondary to adhesions. She states that because of her previous abdominal surgeries she has abdominal pain daily. She states that she also has diarrhea daily secondary to short gut syndrome. She reports that today after working 10 hours the pain increased in severity. States that there was no direct trauma or excessive activity other than the prolonged hours at work. She also reports she has been having her normal daily diarrheal bowel movements. Denies any dysuria or concern for . She states that as the pain is more intense than it typically is she presents for evaluation as she does have concern for potential obstruction [facility] Medical History Bipolar disorder Bowel obstruction Cardiac arrest due to respiratory disorder Chronic pain Former smoker Former tobacco use History of borderline diabetes mellitus History of multiple abdominal surgeries History of small bowel obstruction HLD (hyperlipidemia) Iron deficiency anemia Migraines Obesity Rheumatoid arthritis SBO (small bowel obstruction) Sleep apnea Home Medications magnesium hydroxide 1,200 mg chewable tablet (Dulcolax (magnesium hydroxide)) 1,200 mg PO QHS STOOL 03/10/22 [History Last Taken 03/09/22] hydrocodone-acetaminophen 5-325mg 5mg-325mg 1 tab PO Q4H PRN PRN Pain 3 days #10 TABLETS 06/02/22 [Rx Last Taken Unknown] hydrocodone-acetaminophen 5-325mg 5mg-325mg 1 tab PO Q6H PRN PRN Pain 3 days #10 TABLETS 06/10/22 [Rx Last Taken Unknown] ondansetron 4 mg disintegrating tablet 8 mg (2 x 4 mg) PO Q8H PRN PRN Nausea #20 tabs 06/10/22 [Rx Last Taken Unknown] hydrocodone-acetaminophen 5-325mg 5mg-325mg 1 tab PO Q6H PRN PRN Pain 3 days #10 TABLETS 08/06/22 [Rx Last Taken Unknown] ondansetron 4 mg disintegrating tablet 4 mg PO Q8H PRN PRN Nausea #10 tabs 08/10/22 [Rx Last Taken Unknown] cefuroxime axetil 500 mg tablet 500 mg PO BID #14 tabs 10/06/22 [Rx Last Taken Unknown] hydrocodone-acetaminophen 5-325mg 5mg-325mg 1 tab PO Q6H PRN PRN Pain 3 days #12 TABLETS 10/06/22 [Rx Last Taken Unknown] hydrocodone-acetaminophen 5-325mg 5mg-325mg 1 tab PO Q6H PRN PRN Pain 3 days #10 TABLETS 11/11/22 [Rx Last Taken Unknown] Allergy/AdvReac Type Severity Reaction Status Date / Time hydromorphone HCl Allergy Severe Anaphylaxis Verified 02/19/23 16:51 [From Dilaudid] aspirin [From Percodan] Allergy Intermediate Swelling Verified 02/19/23 16:51 oxycodone terephthalate Allergy Intermediate Swelling Verified 02/19/23 16:51 [From Percodan] amoxicillin Allergy Hives Verified 02/19/23 16:51 ampicillin Allergy Swelling Verified 02/19/23 16:51 azithromycin Allergy Other Verified 02/19/23 16:51 erythromycin base Allergy Hives Verified 02/19/23 16:51 fentanyl Allergy Anaphylaxis Verified 02/19/23 16:51 orphenadrine [From Norflex] Allergy Anaphylaxis Verified 02/19/23 16:51 oxycodone HCl [From Percocet] Allergy Anaphylaxis Verified 02/19/23 16:51 propoxyphene napsylate Allergy Other Verified 02/19/23 16:51 [From Darvocet-N] Sulfa (Sulfonamide Allergy Other Verified 02/19/23 16:51 Antibiotics) tramadol Allergy Hives Verified 02/19/23 16:51 Family History Father Cancer Hx Leukemia. Diabetes CVA (cerebral vascular accident) Mother Cancer Surgical History H/O: hysterectomy History of appendectomy History of bowel resection History of cholecystectomy S/P cholecystectomy S/P exploratory laparotomy Social History household members: family Smoking Status: Former smoker alcohol intake: never substance use type: does not use ROS ROS ED Constitutional Constitutional ED: Denies chills or fever(s) Eyes Eyes: Denies change in vision ENT ENT ED: Denies sore throat Cardiovascular Cardiovascular: Denies chest pain Respiratory/Chest Respiratory/Chest: Denies cough or dyspnea Gastrointestinal Gastrointestinal: Reports abdominal pain and diarrhea; Denies nausea or vomiting Genitourinary Genitourinary ED: Denies dysuria or hematuria Musculoskeletal Musculoskeletal: Denies back pain or myalgias Integumentary Denies rash Neurologic Neurologic: Denies headache(s) Hematologic/Lymphatic Hematologic/Lymphatic: Denies easy bleeding or easy bruising EXAM Physical Exam Const Vital Signs: 04/12/23 21:51 04/12/23 23:51 04/13/23 01:00 Temperature 97.0 F L Temperature Source Temporal Pulse Rate 92 Respiratory Rate 16 16 16 Blood Pressure 123/76 H Blood Pressure Mean 91 Pulse Ox 97 Oxygen Delivery Method Room Air Positive well nourished, well developed and obese General Appearance ED: well developed; Negative for pallor Nutritional Appearance: obese HEENT Reports moist mucous membranes HEENT Narrative: No signs of infection noted in the posterior pharynx Eyes PERRL and EOMs intact bilaterally General Eye ED: Negative for scleral icterus Neck supple Neck Narrative: No nuchal rigidity or meningeal signs Resp normal respiratory effort and clear to auscultation bilaterally Cardio regular rate and regular rhythm Rate: other Other Details: Heart is regular rate and rhythm without murmurs rubs or gallops Radial and carotid pulses are equal and symmetric GI GI Narrative: Abdomen is slightly distended with hypoactive bowel sounds. There is diffuse generalized pain with palpation without voluntary guarding or rigidity. There is mild diffuse increased tympany noted. No pulsatile mass or fluid wave. Auscultation: hypoactive bowel sounds Extremity normal to inspection Neuro oriented x3, CN's II-XII intact bilaterally and no sensory deficits noted Sensorium / Orientation: alert Motor Exam: strength 5/5 throughout Psych mental status grossly normal Skin no rashes or lesions noted General Skin Exam: Negative for jaundice or pallor MDM MDM MDM Narrative Medical decision making narrative: Patient presented to the ER with stable vitals. She reports a history of chronic abdominal pain but states that today's pain is slightly worse in nature without obvious signs of of trauma excessive activity or recent infective/sick symptoms. Differential diagnosis is for diverticulitis versus colitis versus pancreatitis versus biliary colic versus bowel obstruction or ileus. As patient has stable vitals and reports that she is not vomiting and has been having her normal daily bowel movements my concern for obstruction is lower and I will start with basic labs and a acute abdominal series. Labs reveal no clinically significant findings and with normal white blood cell count lactic acid concern for obstruction or infection is low. However the abdominal x-ray shows left- sided distention which does correlate with her anastomosis site but cannot 100% rule out early obstruction. Secondary to this I did elect to then add the CT scan with IV contrast. The CT scan was compared to one from approximately 6 months ago and at this time shows similar findings with dilation left lower quadrant from anastomosis but no active leaking or signs of inflammation infection or obstruction. Therefore as patient does not have derangement to her vitals or labs and CT scan confirms no blockage she is otherwise safe for discharge History & Record Review Discussion w/independent historian: Patient Lab Data Attestation: I reviewed the patient's lab results. Labs: Laboratory Results - last 24 hr 04/12/23 22:27 WBC 6.8 RBC 4.51 Hgb 12.3 Hct 39.9 MCV 88.5 MCH 27.3 MCHC 30.8 L RDW Std Deviation 45.0 H RDW Coeff of Yovana 14.1 Plt Count 220 MPV 9.9 Immature Gran % (Auto) 0.300 Neut % (Auto) 58.8 Lymph % (Auto) 31.6 [place] % (Auto) 6.5 Eos % (Auto) 2.2 Baso % (Auto) 0.6 Absolute Neuts (auto) 4.0 Absolute Lymphs (auto) 2.13 Nucleated RBC % 0 Sodium 143 Potassium 4.3 Chloride 112 H Carbon Dioxide 28.0 Anion Gap 3 L BUN 13 Creatinine 0.88 Estim Creat Clear Calc 68.19 Est GFR (MDRD) Af Amer 90 Est GFR (MDRD) Non-Af 75 BUN/Creatinine Ratio 14.8 Glucose 98 Lactic Acid 0.7 Calcium 9.2 Total Bilirubin 0.30 Direct Bilirubin 0.06 AST 19 ALT 31 Alkaline Phosphatase 95 Total Protein 6.7 Albumin 3.3 Globulin 3.4 Lipase 33 Radiography Diagnostic Testing: Clinical Impression(s) from Imaging Studies Acute Abdomen Series 04/12/23 22:45 IMPRESSION: Few dilated loops of small bowel in the left lower quadrant. This may be chronic, related to the small bowel anastomosis, similar to the prior CT. Early acute small bowel obstruction is an additional consideration depending on the clinical scenario. Mild atelectasis in the lung bases bilaterally. Electronically Signed: Miguel Lazcano MD at 0:06 EST , Abdomen/Pelvis CT 04/13/23 00:35 IMPRESSION: undefined Acute abdominal series with 1 view chest as interpreted by the emergency medicine physician reveals dilation of the left lower quadrant consistent with previous anastomoses without perforation or free air. 1 view chest component reveals no acute infiltrate pneumothorax or pleural effusion Discharge Plan Triage Chief Complaint: Abd Pain ED Provider: Last Lucia Dx/Rx/DC Orders Clinical Impression: Nonspecific abdominal pain, Intestinal anastomosis present, Obesity (BMI 30- 39.9) Instructions: Abdominal Pain Prescriptions: No Action Dulcolax (magnesium hydroxide) 1,200 mg Tablet,Chewable 1,200 mg PO QHS hydrocodone-acetaminophen 5-325 mg tablet 1 tab PO Q4H PRN PRN (Reason: Pain) 3 Days Qty: 10 0RF hydrocodone-acetaminophen [hydrocodone-acetaminophen] 5-325 mg tablet 1 tab PO Q6H PRN PRN (Reason: Pain) 3 Days Qty: 10 0RF ondansetron [ondansetron] 4 mg tablet,disintegrating 8 mg PO Q8H PRN PRN (Reason: Nausea) Qty: 20 0RF hydrocodone-acetaminophen 5-325 mg tablet 1 tab PO Q6H PRN PRN (Reason: Pain) 3 Days Qty: 10 0RF ondansetron 4 mg tablet,disintegrating 4 mg PO Q8H PRN PRN (Reason: Nausea) Qty: 10 0RF hydrocodone-acetaminophen [hydrocodone-acetaminophen] 5-325 mg tablet 1 tab PO Q6H PRN PRN (Reason: Pain) 3 Days Qty: 12 0RF cefuroxime axetil 500 mg tablet 500 mg PO BID Qty: 14 0RF hydrocodone-acetaminophen [hydrocodone-acetaminophen] 5-325 mg tablet 1 tab PO Q6H PRN PRN (Reason: Pain) 3 Days Qty: 10 0RF Primary Care Provider: Mesfin Ramos Referrals: Mesfin Ramos PA [Primary Care Provider] - Activity Restrictions/Additional Instructions: Your workup today shows no sign of intestinal blockage intestinal infection or leakage of your connection site Disposition Disposition: Home, Self Care
== END 2023-04-13 02:34 | disposition home or self-care (01) ==
PROVIDERS: Emergency Provider Emergency Medicine; PCP Physician Assistant; Visit Provider Emergency Medicine
DX: K90.821 Short bowel syndrome with colon in continuity (principal); M06.9 Rheumatoid arthritis, unspecified; R10.84 Generalized abdominal pain; G89.29 Other chronic pain; E78.5 Hyperlipidemia, unspecified; E66.9 Obesity, unspecified; Z79.899 Other long term (current) drug therapy; Z87.891 Personal history of nicotine dependence
CPT/HCPCS: 74022; 74177; 80048; 80076; 83605; 83690; 85025; 96361; 96374; 96375; 96376; 99284; J7030; Q9967; A4216; J2405

== ENCOUNTER 2023-04-14 07:05 | Emergency (ER) | payer MEDICAID, SELFPAY ==
[2023-04-14 07:05] VITALS: BP 122/100; PULSE 87; RESP 16; TEMP 35.6; O2SAT 97
--- NOTE | 2023-04-14 07:27 | CT_ITS ---
STUDY: CT ABDOMEN AND PELVIS WITH CONTRAST REASON FOR EXAM: Female, 42 years old. Obstruction RADIATION DOSAGE (If Supplied By Facility): CTDIvol = ( 12.76 ) mGy, DLP = ( 837.93 ) mGycm TECHNIQUE: Transaxial images were obtained from the dome of the diaphragm to the symphysis pubis without oral contrast. ml of 100mL Isovue-300 contrast was administered. Sagittal and coronal images were reconstructed. Individualized dose optimization techniques were used for this CT. COMPARISON: CT of abdomen and pelvis dated April 13, 2023 FINDINGS: Mild discoid atelectasis with trace pleural fluid is present in the lung bases. Normal liver. Normal gallbladder and extrahepatic biliary system. Normal spleen. Normal pancreas. Normal bilateral adrenal glands. Normal right kidney. Normal left kidney. Normal visualized stomach. Moderate interval decrease in dilatation and patulousness at the small bowel anastomotic site in the left lower quadrant when compared to the prior study. Small amount of fecal material and trace fluid at the anastomotic site is likely related to altered motility dynamics and no specific process. There is no evidence of small bowel obstruction on the current study. No free air or free fluid is seen. Moderate stool retention is seen throughout the colon. Normal colon. There is non-visualization of the appendix. Normal abdominal aorta. Normal inferior vena cava. Normal retroperitoneum. Normal urinary bladder. Normal abdominal wall. Normal osseous structures. CT/Abdomen/Pelvis W IV Cont ONLY IMPRESSION: 1. Moderate interval decrease in dilatation and patulousness at the small bowel anastomotic site in the left lower quadrant when compared to the prior study. Small amount of fecal material and trace fluid at the anastomotic site is likely related to altered motility dynamics and no specific process. There is no evidence of small bowel obstruction on the current study. No free air or free fluid is seen. Moderate stool retention is seen throughout the colon. Normal colon. There is non-visualization of the appendix. Electronically Signed: Simon Cheatham MD at 9:43 EST ,
--- NOTE | 2023-04-14 07:29 | EDS_ITS ---
HPI History of Present Illness Chief Complaint: Abd Pain Informant: patient Narrative Narrative: Patient presents with abdominal pain. Patient states she has abdominal pain in her lower abdomen that goes left to right and right to left. She was here about a day or so ago. At that point she was saying she has it all the time. Now she states she just has it occasionally. But it started when she was in her late 20s. She evidently had a hysterectomy after childbirth due to bleeding. My suspicion is she developed adhesions. She had had obstruction with some lysis of adhesions. She states she had parts of small and large bowel taken out. Her last surgery was about 4 years ago. She had been seeing a surgeon down in [facility]. But he retired about 4 years ago after her last surgery. 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 She cannot tell me the name of that person. Despite having ongoing symptoms she has not yet established with a surgeon in this area. Patient is very upset that we are not managing her chronic abdominal pain. I explained that we were happy to help her but we are not here for chronic abdominal issues. We will look for acute problems. But sorting out and managing long-term chronic issues is not the focus of the emergency department. She denies fevers. She vomited once this morning over the last 4 days but no other vomiting. Her appetite has been down. She has soft stools all the time and is still having soft stools. No change in that. No blood seen. Of note, she did not know if she had her gallbladder or appendix out. She states she was not sure. But her chart states that she did. [facility] Medical History Bipolar disorder Bowel obstruction Cardiac arrest due to respiratory disorder Chronic pain Former smoker Former tobacco use History of borderline diabetes mellitus History of multiple abdominal surgeries History of small bowel obstruction HLD (hyperlipidemia) Iron deficiency anemia Migraines Obesity Rheumatoid arthritis SBO (small bowel obstruction) Sleep apnea Home Medications magnesium hydroxide 1,200 mg chewable tablet (Dulcolax (magnesium hydroxide)) 1,200 mg PO QHS STOOL 03/10/22 [History Last Taken 03/09/22] hydrocodone-acetaminophen 5-325mg 5mg-325mg 1 tab PO Q4H PRN PRN Pain 3 days #10 TABLETS 06/02/22 [Rx Last Taken Unknown] hydrocodone-acetaminophen 5-325mg 5mg-325mg 1 tab PO Q6H PRN PRN Pain 3 days #10 TABLETS 06/10/22 [Rx Last Taken Unknown] ondansetron 4 mg disintegrating tablet 8 mg (2 x 4 mg) PO Q8H PRN PRN Nausea #20 tabs 06/10/22 [Rx Last Taken Unknown] hydrocodone-acetaminophen 5-325mg 5mg-325mg 1 tab PO Q6H PRN PRN Pain 3 days #10 TABLETS 08/06/22 [Rx Last Taken Unknown] ondansetron 4 mg disintegrating tablet 4 mg PO Q8H PRN PRN Nausea #10 tabs 08/10/22 [Rx Last Taken Unknown] cefuroxime axetil 500 mg tablet 500 mg PO BID #14 tabs 10/06/22 [Rx Last Taken Unknown] hydrocodone-acetaminophen 5-325mg 5mg-325mg 1 tab PO Q6H PRN PRN Pain 3 days #12 TABLETS 10/06/22 [Rx Last Taken Unknown] hydrocodone-acetaminophen 5-325mg 5mg-325mg 1 tab PO Q6H PRN PRN Pain 3 days #10 TABLETS 11/11/22 [Rx Last Taken Unknown] hydrocodone-acetaminophen 5-325mg 5mg-325mg 1 tab PO Q6H PRN PRN Pain 3 days #6 TABLETS 04/14/23 [Rx Last Taken Unknown] ondansetron 4 mg disintegrating tablet 4 mg PO Q8H PRN PRN Nausea #10 tabs 04/14/23 [Rx Last Taken Unknown] Allergy/AdvReac Type Severity Reaction Status Date / Time hydromorphone HCl Allergy Severe Anaphylaxis Verified 02/19/23 16:51 [From Dilaudid] aspirin [From Percodan] Allergy Intermediate Swelling Verified 02/19/23 16:51 oxycodone terephthalate Allergy Intermediate Swelling Verified 02/19/23 16:51 [From Percodan] amoxicillin Allergy Hives Verified 02/19/23 16:51 ampicillin Allergy Swelling Verified 02/19/23 16:51 azithromycin Allergy Other Verified 02/19/23 16:51 erythromycin base Allergy Hives Verified 02/19/23 16:51 fentanyl Allergy Anaphylaxis Verified 02/19/23 16:51 orphenadrine [From Norflex] Allergy Anaphylaxis Verified 02/19/23 16:51 oxycodone HCl [From Percocet] Allergy Anaphylaxis Verified 02/19/23 16:51 propoxyphene napsylate Allergy Other Verified 02/19/23 16:51 [From Darvocet-N] Sulfa (Sulfonamide Allergy Other Verified 02/19/23 16:51 Antibiotics) tramadol Allergy Hives Verified 02/19/23 16:51 Family History Father Cancer Hx Leukemia. Diabetes CVA (cerebral vascular accident) Mother Cancer Surgical History H/O: hysterectomy History of appendectomy History of bowel resection History of cholecystectomy S/P cholecystectomy S/P exploratory laparotomy Social History household members: family Smoking Status: Former smoker alcohol intake: never substance use type: does not use ROS ROS ED ROS Narrative A complete review of systems was performed and is negative except as documented in the history of present illness. Some specific details below. Constitutional: No recent fevers or chills. EYE: No visual complaints or pain. ENT: No difficulty swallowing. It does not sound like she has not significant GERD. She vomited once. CV: No chest pain or palpitations. Respiratory: No dyspnea. No hemoptysis. No difficulty taking breaths. GI: Please see history of present illness. : No frequency dysuria or hematuria. Musculoskeletal: No recent trauma. No pains. Skin: No rash. Nondiaphoretic. Neuro: No weakness or numbness. Endocrine: No polyuria or polydipsia. She does have a history of borderline diabetes but is on no meds EXAM Physical Exam Narrative Exam Narrative: CONSTITUTIONAL: Patient is nontoxic in appearance. The patient looks comfortable. HEENT: No notable trauma. Mucous membranes do look quite dry. EYES: No conjunctival injection. No icterus. CARDIOVASCULAR: Regular rate. Regular rhythm. No notable murmur. No JVD. RESPIRATORY: No respiratory distress. Breathing is unlabored. No wheezes. No rhonchi. No rales. No pain with a deep breath. GASTROINTESTINAL: Not distended. Bowel sounds are normal. There is mild tenderness with soft palpation in any area. Even though she states the pain is lower or touching even and epigastric is sore for her. But it is not guarding. There is no rebound. GENITOURINARY: No CVA tenderness. MUSCULOSKELETAL: Atraumatic. No tenderness NEUROLOGICAL: Patient is alert and appropriate. No focal deficit noted. SKIN: No noted rashes. No diaphoresis. PSYCHIATRIC: Patient is calm. Mood is appropriate. Const Vital Signs: 04/14/23 07:05 04/14/23 11:12 Temperature 96.0 F L Temperature Source Temporal Pulse Rate 87 71 Respiratory Rate 16 16 Blood Pressure 122/100 H 132/70 H Blood Pressure Mean 107 90 Pulse Ox 97 97 Oxygen Delivery Method Room Air MDM MDM MDM Narrative Medical decision making narrative: Went up interpretation of her CT of the abdomen shows the anastomosis but no sign of obstruction that I see. No mass. Final reading shows actually improved from the other day. Her CBC is normal including white count hemoglobin and platelets. Electrolytes show no marked abnormalities. lactate is 0.8. Liver function test showed no acute process. Lipase is normal Urine is not a clean-catch but no sign of infection. Talk screen is negative other than opiates which she has received here. I rechecked the patient. She is essentially pain-free. Her abdomen is soft. She has not vomited here. She states she has Phenergan at home. I will add Zofran as she has no allergy that to this and has tolerated it. I will give her a few hydrocodone. This is one of the few pain meds that she has tolerated without complications. She has chronic diarrhea so I do not think this will likely cause constipation. I have explained that she has to call gastroenterology and surgeon. She needs to get follow-up. We are happy to see her in the emergency department. However, she has chronic issues that need long-term management. Lab Data Attestation: I reviewed the patient's lab results. Labs: Laboratory Results - last 24 hr 04/14/23 04/14/23 07:45 07:55 WBC 7.7 RBC 4.37 Hgb 12.1 Hct 39.7 MCV 90.8 MCH 27.7 MCHC 30.5 L RDW Std Deviation 46.1 H RDW Coeff of Yovana 13.8 Plt Count 209 MPV 10.0 Immature Gran % (Auto) 0.700 Neut % (Auto) 71.3 H Lymph % (Auto) 20.3 [place] % (Auto) 6.9 Eos % (Auto) 0.3 Baso % (Auto) 0.5 Absolute Neuts (auto) 5.5 Absolute Lymphs (auto) 1.56 Nucleated RBC % 0 Sodium 145 Potassium 3.8 Chloride 112 H Carbon Dioxide 31.0 Anion Gap 2 L BUN 10 Creatinine 0.92 Est GFR (MDRD) Af Amer 86 Est GFR (MDRD) Non-Af 71 BUN/Creatinine Ratio 10.9 Glucose 101 Lactic Acid 0.8 Calcium 8.9 Total Bilirubin 0.50 AST 23 ALT 26 Alkaline Phosphatase 78 Total Protein 6.3 L Albumin 3.0 L Globulin 3.3 Albumin/Globulin Ratio 0.9 Lipase 25 Urine Color Yellow Urine Clarity Sl. Cloudy Urine pH 5.0 Ur Specific [place] 1.025 Urine Protein 15 H Urine Glucose (UA) Normal Urine Ketones 5 H Urine Occult Blood Negative Urine Nitrite Negative Urine Bilirubin Negative Urine Urobilinogen 1 H Ur Leukocyte Esterase Negative Urine RBC 0 SEEN Urine WBC 0 SEEN Ur Squamous Epith Cells 5-10 SEEN Urine Bacteria 2+ Urine Mucus 1+ Urine Opiates Screen POSITIVE H Urine Methadone Screen NEGATIVE Ur Barbiturates Screen NEGATIVE Ur Phencyclidine Scrn NEGATIVE Ur Amphetamines Screen NEGATIVE MDMA (Ecstasy) Screen NEGATIVE U Benzodiazepines Scrn NEGATIVE Urine Cocaine Screen NEGATIVE U Cannabinoids Screen NEGATIVE Ur Drug Screen Comment Radiography Diagnostic Testing: Clinical Impression(s) from Imaging Studies Abdomen/Pelvis CT 04/14/23 07:27 IMPRESSION: 1. Moderate interval decrease in dilatation and patulousness at the small bowel anastomotic site in the left lower quadrant when compared to the prior study. Small amount of fecal material and trace fluid at the anastomotic site is likely related to altered motility dynamics and no specific process. There is no evidence of small bowel obstruction on the current study. No free air or free fluid is seen. Moderate stool retention is seen throughout the colon. Normal colon. There is non-visualization of the appendix. Electronically Signed: Simon Cheatham MD at 9:43 EST , Discharge Plan Triage Chief Complaint: Abd Pain ED Provider: Kam Lyles Dx/Rx/DC Orders Clinical Impression: Nonspecific abdominal pain Instructions: ED Abdominal Pain Unkn Cause Fem Prescriptions: New hydrocodone-acetaminophen [hydrocodone-acetaminophen] 5-325 mg tablet 1 tab PO Q6H PRN PRN (Reason: Pain) 3 Days Qty: 6 0RF ondansetron [ondansetron] 4 mg tablet,disintegrating 4 mg PO Q8H PRN PRN (Reason: Nausea) Qty: 10 0RF No Action Dulcolax (magnesium hydroxide) 1,200 mg Tablet,Chewable 1,200 mg PO QHS hydrocodone-acetaminophen 5-325 mg tablet 1 tab PO Q4H PRN PRN (Reason: Pain) 3 Days Qty: 10 0RF hydrocodone-acetaminophen [hydrocodone-acetaminophen] 5-325 mg tablet 1 tab PO Q6H PRN PRN (Reason: Pain) 3 Days Qty: 10 0RF ondansetron [ondansetron] 4 mg tablet,disintegrating 8 mg PO Q8H PRN PRN (Reason: Nausea) Qty: 20 0RF hydrocodone-acetaminophen 5-325 mg tablet 1 tab PO Q6H PRN PRN (Reason: Pain) 3 Days Qty: 10 0RF ondansetron 4 mg tablet,disintegrating 4 mg PO Q8H PRN PRN (Reason: Nausea) Qty: 10 0RF hydrocodone-acetaminophen [hydrocodone-acetaminophen] 5-325 mg tablet 1 tab PO Q6H PRN PRN (Reason: Pain) 3 Days Qty: 12 0RF cefuroxime axetil 500 mg tablet 500 mg PO BID Qty: 14 0RF hydrocodone-acetaminophen [hydrocodone-acetaminophen] 5-325 mg tablet 1 tab PO Q6H PRN PRN (Reason: Pain) 3 Days Qty: 10 0RF Stand Alone Forms: ED Work / School Excuse Primary Care Provider: Mesfin Ramos Referrals: Taco Church MD [Med Staff - Active Staff] - As soon as possible Ron Mantilla DO [Med Staff - Active Staff] - As soon as possible Mesfin Ramos PA [Primary Care Provider] - As soon as possible Disposition Disposition: Home, Self Care Discharge Date/Time: 04/14/23 11:15
--- OUTSIDE RECORDS SUMMARY | 2023-04-14 07:32 | XMS RPT_ITS | CCD ---
Author Name Unknown Address [address] [facility] [address] [place] [address] Organization [facility] Care Team Providers Care Salon Leader Name Role Phone America Luz MD Primary [...] INOPHEN] Drug Allergy 1 Shortness of Breath [facility] (13 sources) Amoxicillin; Translations: [AMOXICILLIN] Drug Allergy 2 Hives [facility] (13 sources) atorvastatin; Translations: [ATORVASTATIN] Drug Allergy 4 Vomiting [facility] (13 sources) Erythromycin; Translations: [ERYTHROMYCIN] Drug Allergy 0 Intolerance [facility] Work Phone: (13 sources) HYDROmorphone; Translations: [HYDROMORPHONE (BULK)] Drug Allergy 5 Anaphylaxis [facility] (13 sources) meloxicam; Translations: [MELOXICAM] Drug Allergy 4 Other: See Comments [facility] (13 sources) Naproxen; Translations: [NAPROXEN] Drug Allergy 1 Itching [facility] Work Phone: (13 sources) Pravastatin; Translations: [PRAVASTATIN] Drug Allergy 7 Itching [facility] Work Phone: (13 sources) risperiDONE; Translations: [RISPERIDONE] Drug Allergy 5 Swelling [facility] (13 sources) traMADol; Translations: [TRAMADOL] Drug Allergy 3 Intolerance [facility] Work Phone: (13 sources) Propoxyphene N-Acetaminophen; Translations: [PROPOXYPHENE N-ACETAMINOPHEN] Drug Allergy 2 Mental Status Change [facility] (13 sources) Sulfate Salt; Translations: [SULFATE SALT] Drug Allergy 6 Swelling [facility] (12 sources) zpack [Other] Propensity to adverse reactions 6 Mental Status Change [facility] (1 source) OTHER; Translations: [OTHER] Propensity to adverse reactions (disorder) 6 [facility] Repository Medications Current Medications Medication Drug Class(es) Dates Sig (Normalized) Sig (Original) polymyxin b 21031 unt/ml / trimethoprim 1 mg/ml ophthalmic solution [...] 98.1 [degF] Krislyn Aberegg PA Work Phone: [facility] 08-18-2022 10:57-0400 Diastolic blood pressure 76 mm[Hg] Krislyn Aberegg PA Work Phone: [facility] 08-18-2022 10:57-0400 Heart rate 97 /min Krislyn Aberegg PA Work Phone: [facility] 08-18-2022 10:57-0400 Respiratory rate 22 /min Krislyn Aberegg PA Work Phone: [facility] 08-18-2022 10:57-0400 SaO2% (BldA) [Mass fraction] 99 % Krislyn Aberegg PA Work Phone: [facility] 08-18-2022 10:57-0400 Systolic blood pressure 128 mm[Hg] Krislyn Aberegg PA Work Phone: [facility] 07-29-2022 14:41-0400 Diastolic blood pressure 60 mm[Hg] Khushboo Haagen REVERSER.[employer]ANTRY [employer] CRE[employer]MEMBER Work Phone: [facility] 07-29-2022 14:41-0400 Heart rate 98 /min Khushboo Haagen REVERSER.[employer]ANTRY [employer]BER Work Phone: [facility] 07-29-2022 14:41-0400 Respiratory rate 18 /min Khushboo Haagen REVERSER.[employer]TRY [employer] Work Phone: [facility] 07-29-2022 14:41-0400 SaO2% (BldA) [Mass fraction] 96 % Khushboo Haagen REVERSER.INFANTRY [employer]BER Work Phone: [facility] 07-29-2022 14:41-0400 Systolic blood pressure 98 mm[Hg] Khushboo Haagen REVERSER.[employer]ANTRY [employer]BER Work Phone: [facility] 06-03-2022 15:28-0500 Body weight 92.08 kg America Luz MD Work Phone: [facility] 06-03-2022 15:28-0500 Diastolic blood pressure 62 mm[Hg] America Luz MD Work Phone: [facility] 06-03-2022 15:28-0500 Heart rate 83 /min America Luz MD Work Phone: [facility] 06-03-2022 15:28-0500 SaO2% (BldA) [Mass fraction] 95 % America Luz MD Work Phone: [facility] 06-03-2022 15:28-0500 Systolic blood pressure 102 mm[Hg] America Luz MD Work Phone: [facility] 04-28-2022 18:39-0500 Body temperature 98.71 [degF] Sophy Denbow PA-C Work Phone: [facility] 04-28-2022 18:39-0500 Body weight 91.63 kg Sophy Denbow PA-C Work Phone: [facility] 04-28-2022 18:39-0500 Diastolic blood pressure 64 mm[Hg] Sophy Denbow PA-C Work Phone: [facility] 04-28-2022 18:39-0500 Heart rate 84 /min Sophy Denbow PA-C Work Phone: [facility] 04-28-2022 18:39-0500 Respiratory rate 16 /min Sophy Denbow PA-C Work Phone: [facility] 04-28-2022 18:39-0500 SaO2% (BldA) [Mass fraction] 96 % Sophy Denbow PA-C Work Phone: [facility] 04-28-2022 18:39-0500 Systolic blood pressure 102 mm[Hg] Sophy Denbow PA-C Work Phone: [facility] Encounters Encounter Date Encounter Type Care Provider Facility Start: 08-18-2022 End: 08-18-2022 ambulatory AMERICA LUZ Facility:[facility] Start: 08-18-2022 End: 08-18-2022 Patient encounter procedure Luis Alfredo KINGSLEY Work Phone: [facility] Procedures Date Procedure Procedure Detail Performing Clinician Start: 07-29-2022 COVID WITH FLUA+B, ROUTINE Khushboo Haagen REVERSER.INFANTRY [employer]BER Work Phone: Start: 07-29-2022 STREP A MOLECULAR (POC) Khushboo Zamarripaagen REVERSER.[employer]ANTRY [employer]BER Work Phone: Start: 05-21-2016 Adult depression screening assessment America Luz MD Work Phone: Plan of Treatment Date Care Activity Detail Author Start: 04-24-2025 Urine microalbumin profile DTAP,TDAP,TD (2 - Td or Tdap) [facility] Start: 06-03-2022 End: 08-03-2022 CBC W Auto Differential panel - Blood CBC + DIFF Lab Routine Hyperlipidemia, unspecified hyperlipidemia type Expected: 06/03/2022, Expires: 08/03/2022 [facility] Work Phone: Immunizations Immunization Date Immunization Notes Care Provider Olive porras 03-12-2022 influenza, seasonal, injectable Khushboo Haagen REVERSER.[employer]TRY [employer]BER Work Phone: [facility] 04-26-2020 influenza, injectabl e, quadrivalent, preservative free Khushboo Haagen REVERSER.[employer]ANTRY [employer]BER Work Phone: [facility] 02-08-2018 influenza, seasonal, injectable, preservative free Khushboo Haagen REVERSER.[employer]ANTRY [employer]BER Work Phone: [facility] 05-21-2016 influenza, injectabl e, quadrivalent, contains preservative America Luz MD Work Phone: [facility] 04-24-2015 tetanus toxoid, redu daniel diphtheria toxoid, and acellular pertussis vaccine, adsorbed Khushboo Haagen REVERSER.[employer]BER Work Phone: [facility] 02-22-2015 influenza, injectabl e, quadrivalent, contains preservative America Luz MD Work Phone: [facility] 01-17-2014 influenza, seasonal, injectable America Luz MD Work Phone: [facility] 01-17-2014 pneumococcal polysaccharide vaccine, 23 valent America Luz MD Work Phone: [facility] Payers Date Payer Category Payer Medicaid [id number] 2021 Medicaid [id number] 2021 Medicaid [id number] 2020 Medicaid [facility] MEDICAID [facility] MEDICAID [id number] 2020-Present [phone] [address] [place] [address] Medicaid [id number] Social History Date Type Detail Facility Start: 10-28-2020 End: 04-28-2022 Tobacco smoking status NHIS Ex-smoker [facility] End: 01-11-2020 History of tobacco use Current smoker [facility] End: 01-11-2020 History of tobacco use Cigarette Smoker [facility] Start: 10-28-2020 End: 04-28-2022 Cigarettes smoked current (pack per day) - Reported 0.25 [facility] Start: 10-28-2020 End: 04-28-2022 Tobacco use and exposure Smokeless tobacco non-user [facility] Start: 06-09-2021 End: 08-18-2022 Alcohol intake Current non-drinker of alcohol (finding) [facility] Start: 1980 Sex Assigned At Not on file C [facility] Clinical Notes 02-16-2013 to 09-16-2022 TEETEE Tang - 08/18/2022 11:05 AM Ayaz Fragoso Ma - 07/30/2022 1:50 PM EDTTelephone Encounter - Kerry Fragoso Ma - 07/30/2022 10:36 AM EDTPatient Instructions Note Date & Type Note Facility 09-16-2022 Note Patient Outreach (IN TMMN) SARAHPETE ([id number]) 1980 F Date Time Provider Department 09/16/22 [...] for screening mammogram for breast cancer [Z12.31] Order(s):[facility] SCREENING [[id number]] Order #: [id number] FUTURE Prescriptions as of 09/21/2022 - Iugxbbcqkznsmfn-Jtyfzbofb-TK (BROMFED DM) 2-30-10 mg/5 mL syrup Take [...] Encounter Status:Closed by EPIC, PRODUSER on 09/21/22 [facility] 08-18-2022 Note HNO ID: [id number] Author: RT Jori(R) Service: Nuclear Medicine Author [...] RT Jori(R) August 18, 2022 11:28 AM [facility] 08-18-2022 Note HNO ID: [id number] Author: TEETEE Tang Service: ? Author Type: Physician Soaker Type: Progress Notes Filed: 08/18/2022 12:07 PM Note Text: This note was created using Social Moovriter. Subjective Pete Wright is a 41 year [...] BHARATH, small bowel resection Dr. Sumit Cutler [facility] will TOTAL ABDOMINAL HYSTERECT W/WO RMVL TUBE OVARY 09/2005 after vag delivery-hemorrhage, AT/WB ALLERGIES Amoxicillin, Darvocet A500 [Propoxyphene N-Acetaminophen], Dilaudid [Hydromorphone (Bulk)], Erythromycin, Lipitor [Atorvastatin], Meloxicam, Naproxen, Percocet [Oxycodone-Acetaminophen], Pravastatin, Risperidone, Sulfate Salt, Tramadol, and Zpack [Other] MEDICATIONS acetaminophen (TYLENOL) 325 mg tablet Take 650 mg by mouth every 6 hours as needed. Xyzspqrzpukuaxh-Iravanxtm-LZ (BROMFED DM) 2-30-10 mg/5 mL syrup Take [...] prompt ER evaluation. (more content not included)... [facility] 08-18-2022 History of Presen t illness Narrative This note was created using Social Moovriter. Subjective Pete Wright is a 41 year [...] BHARATH, small bowel resection Dr. Sumit Cutler [facility] will TOTAL ABDOMINAL HYSTERECT W/WO RMVL TUBE OVARY 09/2005 after vag delivery-hemorrhage, AT/WB ALLERGIES Amoxicillin, Darvocet A500 [Propoxyphene N-Acetaminophen], Dilaudid [Hydromorphone (Bulk)], Erythromycin, Lipitor [Atorvastatin], Meloxicam, Naproxen, Percocet [Oxycodone-Acetaminophen], Pravastatin, Risperidone, Sulfate Salt, Tramadol, and Zpack [Other] MEDICATIONS acetaminophen (TYLENOL) 325 mg tablet Take 650 mg by mouth every 6 hours as needed. Lckmydrfxccgssi-Lgrroiagj-ZE (BROMFED DM) 2-30-10 mg/5 mL syrup Take [...] evaluation. TEETEE Tang documented in this encounter [facility] 07-30-2022 Note HNO ID: [id number] Author: Kerry Fragoso Ma Service: ? Author Type: ? Type: Progress Notes Filed: 07/30/2022 1:55 PM Note Text: POPULATION HEALTH NAVIGATION OUTREACH Action/FYI Pt recently seen 07/29/22, order placed 10/08/21 Patient Identified by Name and : YES, Outreach Outcome/Action Letter mailed Did you use a PCP flex slot to schedule this appointment? N/A Reason for Outreach Care Gap or Scheduling/Wellness visits Payer: Payor: [facility] MEDICAID / Plan: [facility] COMMUNITY PLAN MEDICAID [facility] / Product Type: Medicaid / Care Gap Reviewed:: Breast Cancer screening Reminder: Reminder note to check Health Maintenance for items below Health Maintenance items due: HEPATITIS B(1 of 3 - 3-dose series) Never done COVID-19 VACCINE(1) Never done HEPATITIS C SCREENING Never done MAMMOGRAM Never done DEPRESSION ASSESSMENT Never done Navigation Signature: Kerry Fragoso Ma July 30, 2022 1:50 PM [facility] 07-30-2022 Note Patient Outreach (FA MPWS) PETE WRIGHT ([id number]) 1980 F Date Time Provider Department 07/30/22 [...] Care Gap or Scheduling/Wellness visits Payer: Payor: [facility] MEDICAID / Plan: [facility] COMMUNITY PLAN MEDICAID [facility] / Product Type: Medicaid / Care Gap [...] Cmt: Mammogram Prescriptions as of 07/30/2022 - Smjfkrhuydztrli-Ojnninjhf-MQ (BROMFED DM) 2-30-10 mg/5 mL syrup Take [...] Status:Closed by KERRY FRAGOSO MA on 07/30/22 [facility] 07-30-2022 History of Presen t illness Narrative POPULATION HEALTH NAVIGATION OUTREACH Action/FYI Pt recently seen 07/29/22, order placed 10/08/21 Patient Identified by Name and : YES, Outreach Outcome/Action Letter mailed Did you use a PCP flex slot to schedule this appointment? N/A Reason for Outreach Care Gap or Scheduling/Wellness visits Payer: Payor: [facility] MEDICAID / Plan: [facility] COMMUNITY PLAN MEDICAID [facility] / Product Type: Medicaid / Care Gap [...] 2022 1:50 PM documented in this encounter [facility] 07-30-2022 Miscellaneous Notes Patient was made aware of the results. Patient verbalizes understanding. Kerry Fragoso Ma ----- Message from Mesfin Ramos PA-C sent at 07/30/2022 10:13 AM EDT ----- Please let her know Covid and flu negative Thanks, Gamaliel Ramos PA-C documented in this encounter [facility] 07-30-2022 Miscellaneous Notes Patient calling asking for COVID test results. COVID WITH FLUA+B, ROUTINE Order: [id number] Status: Final result Visible to patient: No [...] B by RT PCR R Resulting Agency [facility] Went over results of COVID and Influenza A and B tests with understanding. documented in this encounter [facility] 07-29-2022 Note HNO ID: [id number] Author: Khushboo Cooper APRN.INFANTRY [employer] CREWMEMBER Service: ? Author Type: Nurse Practitioner Type: [...] BHARATH, small bowel resection Dr. Sumit Cutler [facility] will TOTAL ABDOMINAL HYSTERECT W/WO RMVL TUBE [...] ROUTINE - BROMPHENIRAMINE-PSE (more content not included)... [facility] 07-29-2022 Instructions Khushboo Cooper APRN.BROOKE - [...] please notify provider. documented in this encounter [facility] 07-29-2022 History of Presen t illness Narrative [...] CHOLECYSTECTOMY Cholecystectomy CONSULT TO COLO-RECTAL SURGERY 04/14/2008,04/16/2008 [facility] EXPLORATORY LAPAROTOMY CELIOTOMY W/WO BIOPSY SPX Laparotomy, exp. Adhesiolysis. Abdominal wall resection (mesh included), primary closure. OOPHORECTOMY PARTIAL/TOTAL UNI/BI just one left ovary and both tubes OOPHORECTOMY PARTIAL/TOTAL UNI/BI 2007 dr[facility] right ovary PAST SURGICAL HISTORY OF Bowel resection PAST SURGICAL HISTORY OF 01/25/2020 SBO: exp lap, BHARATH, small bowel resection Dr. Sumit Cutler [facility] will TOTAL ABDOMINAL HYSTERECT W/WO [...] with the plan. documented in this encounter [facility] 06-22-2022 Note HNO ID: [id number] Author: Hai Reeder MD Service: ? Author Type: Physician Type: Progress Notes Filed: 07/07/2022 4:54 PM Note Text: Hai Reeder MD Department of Orthopaedics Orthopaedics [address] [place] [address] Dept: [phone] Dept June 22, 2022 CHIEF COMPLAINT: New [...] seems to help. She was seen at [facility] ER for shoulder pain on 06/10/22 and was prescribed hydrocodone-acetaminophen which helps but she only takes it at night. Patient is R hand dominant and works at [employer] where she is constantly reaching, stocking, pushing [...] of degenerative changes in the acromioclavicular joint. Electric Distribution Checker: [facility] Transcribe Date/Time: Jun 05 2022 4:52P Dictated [...] CHOLECYSTECTOMY Cholecystectomy CONSULT TO COLO-RECTAL SURGERY 04/14/2008,04/16/2008 [facility] EXPLORATORY LAPAROTOMY CELIOTOMY W/WO BIOPSY SP (more content not included)... [facility] 06-22-2022 History of Presen t illness Narrative Hai Reeder MD Department of Orthopaedics Orthopaedics [address] [facility] [address] Dept: [phone] Dept June 22, 2022 CHIEF COMPLAINT: New [...] seems to help. She was seen at [facility] ER for shoulder pain on 06/10/22 and was prescribed hydrocodone-acetaminophen which helps but she only takes it at night. Patient is R hand dominant and works at [employer] where she is constantly reaching, stocking, pushing [...] of degenerative changes in the acromioclavicular joint. Electric Distribution Checker: [facility] Transcribe Date/Time: Jun 05 2022 4:52P Dictated [...] BHARATH, small bowel resection Dr. Sumit Cutler [facility] will TOTAL ABDOMINAL HYSTERECT W/WO RMVL TUBE [...] physician via US mail. America Luz [address] [facility] [address] Hai Reeder MD documented in this encounter [facility] 06-08-2022 Miscellaneous Notes Patient notified. Xray shows mild degenerative changes. See ortho as we already ordered documented in this encounter [facility] 06-03-2022 Note HNO ID: [id number] Author: RT Jori(R) Service: Nuclear Medicine Author [...] RT Jori(R) June 03, 2022 4:18 PM [facility] 06-03-2022 Note HNO ID: [id number] Author: America Luz MD Service: ? Author Type: Physician Type: Progress Notes Filed: 06/03/2022 3:48 PM Note Text: Patient presents with: Pain (Shoulder Pain): right HPI: Patient presents today for office visit for follow up. HOSPITAL/ER FOLLOW UP: Reason for visit: right shoulder pain Which facility: [facility] Date of visit: 06/02/22 Diagnosis: right shoulder tendiitis Treatment given: augie states that makes her too sleepy Current symptoms: did have some numbness Asking about light duty Working at [employer] Also asking about a splint Whole are [...] BHARATH, small bowel resection Dr. Sumit Cutler [facility] [place] will TOTAL ABDOMINAL HYSTERECT W/WO RMVL TUBE [...] E78.5 (primary diagnosi (more content not included)... [facility] 06-03-2022 Miscellaneous Notes Addended by: AMERICA LUZ on: 06/03/2022 04:17 PM Modules accepted: Orders documented in this encounter [facility] 06-03-2022 History of Presen t illness Narrative Patient presents with: Pain (Shoulder Pain): right HPI: Patient presents today for office visit for follow up. HOSPITAL/ER FOLLOW UP: Reason for visit: right shoulder pain Which facility: [facility] Date of visit: 06/02/22 Diagnosis: right shoulder tendiitis Treatment given: norjoshua states that makes her too sleepy Current symptoms: did have some numbness Asking about light duty Working at [employer] Also asking about a splint Whole are [...] BHARATH, small bowel resection Dr. Sumit Cutler [facility] will TOTAL ABDOMINAL HYSTERECT W/WO [...] America Luz MD documented in this encounter [facility] 04-28-2022 Note HNO ID: [id number] Author: Sophy Hampton PA-C Service: ? Author Type: Physician Soaker Type: Progress Notes Filed: 04/28/2022 6:56 PM [...] agrees with the plan. 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 Initial contact with patient post discharge, spoke to patient. Patient identified by name and . TRANSITION CARE MANAGEMENT INITIAL OUTREACH DOCUMENTATION: No flowsheet data found. SUMMARY: -Pt discharged from [facility] on 03/13/2022. -Admitted for: 03/09/2022 Do you [...] discharge instructions/AVS . Restate discharge instructions from [facility] verbally, copy/paste via 24Page[employer]art, mail, or provide in person. Do you have all the necessary equipment and supplies at home? No, follow site specific process to secure durable medical equipment and/or supplies for the patient, handoff to RN/RELOCATION COMMISSIONER, or LIP Medical records from recent hospitalization: Care Everywhere Attempted to reach patient. No answer, voicemail not set up. Kerry Fragoso Ma Please reach out for KWASI Duran: SBO and respiratory arrest , d/c 03/12/2022 and no appointment. Thanks, Gamaliel Ramos PA-C documented in this encounter [facility] 12-05-2021 Miscellaneous Notes Patient calling she was sent home from work Wednesday and did home COVID test was positive. Patient said she had sore throat, nothing else. Now she has a runny nose. Asking what can she take for her symptoms. Advised going to [facility] care for evaluation, patient thought she could go back to work already. Explained about the CDC guidelines to her. documented in this encounter [facility] 10-08-2021 Note Patient Outreach (IN TMMN) PETE WRIGHT ([id number]) 1980 F Date Time Provider Department 10/08/21 [...] for screening mammogram for breast cancer [Z12.31] Order(s):[facility] SCREENING [[id number]] Order #: [id number] FUTURE Prescriptions as of 10/13/2021 - acetaminophen [...] Encounter Status:Closed by EPIC, PRODUSER on 10/13/21 [facility] documented as of this encounter (statuses as of 10/13/2021) [facility] History of Past illness Narrative* Problem Noted Date Resolved Date Closed nondisplaced fracture of fifth left metat arsal bone 02/16/2013 09/15/2013 Disorders of bursae and tend ons in shoulder region, unspecified 01/23/2008 03/13/2010 Other specified complication, antepartum(646.83) 09/15/2005 03/13/2010 documented as of this encounter (statuses as of 01/02/2022) [facility] History of Past illness Narrative* Problem Noted Date Resolved Date Closed nondisplaced fracture of fifth left metat arsal bone 02/16/2013 09/15/2013 Disorders of bursae and tend ons in shoulder region, unspecified 01/23/2008 03/13/2010 Other specified complication, antepartum(646.83) 09/15/2005 03/13/2010 documented as of this encounter (statuses as of 04/29/2022) [facility] History of Past illness Narrative* Problem Noted Date Resolved Date Closed nondisplaced fracture of fifth left metat arsal bone 02/16/2013 09/15/2013 Disorders of bursae and tend ons in shoulder region, unspecified 01/23/2008 03/13/2010 Other specified complication, antepartum(646.83) 09/15/2005 03/13/2010 documented as of this encounter (statuses as of 04/29/2022) [place] [address]-07-2013 History of Past illness Narrative* Problem Noted Date Resolved Date Closed nondisplaced fracture of fifth left metat arsal bone 02/16/2013 09/15/2013 Disorders of bursae and tend ons in shoulder region, unspecified 01/23/2008 03/13/2010 Other specified complication, antepartum(646.83) 09/15/2005 03/13/2010 documented as of this encounter (statuses as of 06/03/2022) [place] [address]-07-2013 History of Past illness Narrative* Problem Noted Date Resolved Date Closed nondisplaced fracture of fifth left metat arsal bone 02/16/2013 09/15/2013 Disorders of bursae and tend ons in shoulder region, unspecified 01/23/2008 03/13/2010 Other specified complication, antepartum(646.83) 09/15/2005 03/13/2010 documented as of this encounter (statuses as of 06/08/2022) [facility] History of Past illness Narrative* Problem Noted Date Resolved Date Closed nondisplaced fracture of fifth left metat arsal bone 02/16/2013 09/15/2013 Disorders of bursae and tend ons in shoulder region, unspecified 01/23/2008 03/13/2010 Other specified complication, antepartum(646.83) 09/15/2005 03/13/2010 documented as of this encounter (statuses as of 07/07/2022) [facility] History of Past illness Narrative* Problem Noted Date Resolved Date Closed nondisplaced fracture of fifth left metat arsal bone 02/16/2013 09/15/2013 Disorders of bursae and tend ons in shoulder region, unspecified 01/23/2008 03/13/2010 Other specified complication, antepartum(646.83) 09/15/2005 03/13/2010 documented as of this encounter (statuses as of 07/30/2022) [facility]11-07-2013 History of Past illness Narrative* Problem Noted Date Resolved Date Closed nondisplaced fracture of fifth left metat arsal bone 02/16/2013 09/15/2013 Disorders of bursae and tend ons in shoulder region, unspecified 01/23/2008 03/13/2010 Other specified complication, antepartum(646.83) 09/15/2005 03/13/2010 documented as of this encounter (statuses as of 07/30/2022) [address]07-2013 History of Past illness Narrative* Problem Noted Date Resolved Date Closed nondisplaced fracture of fifth left metat arsal bone 02/16/2013 09/15/2013 Disorders of bursae and tend ons in shoulder region, unspecified 01/23/2008 03/13/2010 Other specified complication, antepartum(646.83) 09/15/2005 03/13/2010 documented as of this encounter (statuses as of 07/31/2022) [facility]11-07-2013 History of Past illness Narrative* Problem Noted Date Resolved Date Closed nondisplaced fracture of fifth left metat arsal bone 02/16/2013 09/15/2013 Disorders of bursae and tend ons in shoulder region, unspecified 01/23/2008 03/13/2010 Other specified complication, antepartum(646.83) 09/15/2005 03/13/2010 documented as of this encounter (statuses as of 08/18/2022) [facility] note* Diagnosis Encounter for screening mammogram for breast cancer documented in this encounter [facility] note* Diagnosis Eye irritation- Primary Other ill-defined disorder of eye Blepharitis of both upper and lower eyelid of left eye, unspecified type documented in this encounter [facility] note* Diagnosis Hyperlipidemia, unspecified hyperlipidemia type- Primary Acute pain of right shoulder documented in this encounter [facility] note* Diagnosis Shoulder impingement- Primary Other affections of shoulder region, not elsewhere classified Acute pain of right shoulder documented in this encounter [facility] note* Diagnosis Viral upper respiratory tract infection- Primary Acute upper respiratory infections of unspecified site Sore throat Acute pharyngitis documented in this encounter [facility] note* Diagnosis Pain in lower jaw- Primary Jaw pain documented in this encounter [facility] for referral (narrative)* Diagnostic Procedure Only (Routine) - Pending Review Specialty Diagnoses / Procedures Referred By Burton barnes Referred To Contact [facility]ING Diagnoses Encounter for screening mammogram for breast cancer Procedures MARCIAL SCREENING SCREENING MAMMOGRAPHY BI 2-VIEW BREAST INC CAD America Luz MD [address] [place] [address] [facility] [address] [place] [address] Referral ID Status Reason Start Date Expiration Date Visits Requested Visits Authorized [id number] Pending Review Auto-Generat ed Referral 10/08/2021 11/07/2022 1 1 [facility] for referral (narrative)* Diagnostic Procedure Only (Routine) - Closed Specialty Diagnoses / Procedures Referred By Burton barnes Referred To Contact XR IMAGING Diagnoses Acute pain of right shoulder Procedures XR SHOULDER GENERAL 3V OR MORE AP/TRUE AP/OTHER RIGHT RADEX SHOULDER COMPLETE MINIMUM 2 VIEWS America Luz MD [address] [place] [address] Xr Imaging Referral ID Status Reason Start Date Expiration Date V isits Requested Visits Authorized [id number] Closed Auto-Generate d Referral 06/03/2022 07/03/2023 1 1 * Consult, Test, Treat (Routine) - Authorized Specialty Diagnoses / Procedures Referred By Contac t Referred To Contact Orthopedics Diagnoses Acute pain of right shoulder Procedures CONSULT TO ORTHOPAEDICS OFFICE/OUTPATIENT [facility] 60-74 MINUTES America Luz MD [address] [place] [address] Referral ID Status Reason Start Date Expiration Date Visits Requested Visits Authorized [id number] Authorized PCP Requested Referral 06/03/2022 06/03/2023 1 1 [facility] Diagnostic Procedure Only (Urgent) - Closed Specialty Diagnoses / Procedures Referred By Contac t Referred To Contact XR IMAGING Diagnoses Pain in lower jaw Procedures XR MANDIBLE 4V PA/DEX/BOTH OBL RADIOLOG EXAM MANDIBLE COMPL MINIMUM 4 VIEWS [facility] [address] [place] [address] Xr Imaging Referral ID Status Reason Start Date Expiration Date V isits Requested Visits Authorized [id number] Closed Auto-Generate d Referral 08/18/2022 09/17/2023 1 1 [facility] Advance Directives No Advanced Directives Records FoundDocuments on File Type Date Recorded 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 Advance Directive(s) Reason for Referral Specialty Diagnoses / Procedures Referred By Contac t Referred To Contact [facility] Diagnoses Acute pain of right shoulder Shoulder impingement M25.511 (ICD-10-CM) - Acute pain of right shoulder M25.819 (ICD-10-CM) - Shoulder impingement Procedures CONSULT TO PHYSICAL THERAPY PHYSICAL THERAPY EVALUATION HIGH COMPLEX 45 MINS Hai Reeder MD [address] [place] [address] [facility] [address] [place] [address] Referral ID Status Reason Start Date Expiration Date Visits Requested Visits Authorized [id number] Authorized Auto-Generat ed Referral 04/12/2022 04/11/2023 1 [...] or prosecute any alcohol or drug abuse patient.[facility] the event this information is protected by the Federal Confidentiality of Alcohol and Drug Abuse Patient Records regulations: The Federal rules restrict any use of the information to criminally investigate or prosecute any alcohol or drug abuse patient.[facility] the event this information is protected by the Federal Confidentiality of Alcohol and Drug Abuse Patient Records regulations: The Federal rules restrict any use of the information to criminally investigate or prosecute any alcohol or drug abuse patient.[facility] the event this information is protected by the Federal Confidentiality of Alcohol and Drug Abuse Patient Records regulations: The Federal rules restrict any use of the information to criminally investigate or prosecute any alcohol or drug abuse patient.[facility] the event this information is protected by the Federal Confidentiality of Alcohol and Drug Abuse Patient Records regulations: The Federal rules restrict any use of the information to criminally investigate or prosecute any alcohol or drug abuse patient.[facility] the event this information is protected by the Federal Confidentiality of Alcohol and Drug Abuse Patient Records regulations: The Federal rules restrict any use of the information to criminally investigate or prosecute any alcohol or drug abuse patient.[facility] the event this information is protected by the Federal Confidentiality of Alcohol and Drug Abuse Patient Records regulations: The Federal rules restrict any use of the information to criminally investigate or prosecute any alcohol or drug abuse patient.[facility] the event this information is protected by the Federal Confidentiality of Alcohol and Drug Abuse Patient Records regulations: The Federal rules restrict any use of the information to criminally investigate or prosecute any alcohol or drug abuse patient.[facility] the event this information is protected by the Federal Confidentiality of Alcohol and Drug Abuse Patient Records regulations: The Federal rules restrict any use of the information to criminally investigate or prosecute any alcohol or drug abuse patient.[facility] the event this information is protected by the Federal Confidentiality of Alcohol and Drug Abuse Patient Records regulations: The Federal rules restrict any use of the information to criminally investigate or prosecute any alcohol or drug abuse patient.[facility] the event this information is protected by the Federal Confidentiality of Alcohol and Drug Abuse Patient Records regulations: The Federal rules restrict any use of the information to criminally investigate or prosecute any alcohol or drug abuse patient.[facility] the event this information is protected by the Federal Confidentiality of Alcohol and Drug Abuse Patient Records regulations: The Federal rules restrict any use of the information to criminally investigate or prosecute any alcohol or drug abuse patient.[facility] Care Teams (unrecognized sec tion and content) Salon Leader Relationship Specialty Start Date End Date America Luz MD [facility] [place] [address] PCP - General Family Medicine 07/05/17 Salon Leader Relationship Specialty Start Date End Date America Luz MD [address] [place] [id number] PCP - General Family Medicine 07/05/17 Salon Leader Relationship Specialty Start Date End Date America Luz MD [address] [place] [id number] PCP - General Family Medicine 07/05/17 Salon Leader Relationship Specialty Start Date End Date America Luz MD [address] [place] [id number] PCP - General Family Medicine 07/05/17 Salon Leader Relationship Specialty Start Date End Date America Luz MD [address] [place] [id number] PCP - General Family Medicine 07/05/17 Salon Leader Relationship Specialty Start Date End Date America Luz MD [address] [place] [address] [id number] PCP - General Family Medicine 07/05/17 Salon Leader Relationship Specialty Start Date End Date America Luz MD [address] [place], [place] [id number] PCP - General Family Medicine 07/05/17 Salon Leader Relationship Specialty Start Date End Date America Luz MD [address] [place], [place] [id number] PCP - General Family Medicine 07/05/17 Salon Leader Relationship Specialty Start Date End Date America Luz MD [address] [place] [address] PCP - General Family Medicine [...] MDM 60-74 MINUTES America Luz MD [address] [place] [address] Referral ID Status Reason Start Date Expiration Date V isits Requested Visits Authorized [id number] Closed PCP Requested Referral 06/03/2022 06/03/2023 1 [...] BE BASED ON THE PRIMARY CLINICAL RECORDS. [facility]. provides no warranty or guarantee of the accuracy or completeness of information in this document.
[2023-04-14 07:50] LABS: Red Blood Cells-Urine 0 SEEN /hpf (0-5); White Blood Cells 0 SEEN /hpf (0-5)
[2023-04-14 07:56] LABS: Absolute Lymphocyte Count 1.56 X10^3/uL (0.83-4.51); Absolute Neutrophil Count 5.5 X10^3/uL (2.0-7.7); Basophil# 0.04 X10^3/uL; Basophil% 0.5 % (0-1); Eosinophil# 0.02 X10^3/uL; Eosinophils% 0.3 % (0-5); Hematocrit 39.7 % (37-47); Hemoglobin 12.1 g/dL (12.0-15.0); Lymphocyte # 1.56 X10^3/ul (0.83-4.51); Lymphocyte % 20.3 % (19-41); Mean Corp Hgb Conc 30.5 g/dL (32-36); Mean Corpuscular Hgb 27.7 pg (27.0-32.0); Mean Corpuscular Volume 90.8 fL (81-99); Monocyte# 0.53 X10^3/uL; Monocyte% 6.9 % (0-10); NRBC Flagged by Analyzer 0 % (0-5); Neutrophil # 5.49 X10^3/uL (2.7-7.7); Neutrophil % 71.3 % (47-70); Platelet Count 209 K/mm3 (150-450); RBC Distribution Width CV 13.8 % (11.6-14.6); RBC Distribution Width SD 46.1 fl (35.1-43.9); Red Blood Count 4.37 M/mm3 (4.2-5.4); White Blood Count 7.7 K/mm3 (4.4-11.0)
[2023-04-14] MEDS: 0.9% Normal Saline (1000mL) 1,000 ML 1000 ML IV (08:00)
[2023-04-14] MEDS: Ondansetron 4 MG/2 ML Vial IV (08:01)
[2023-04-14] MEDS: Morphine 4 MG/ML Syringe IV (08:02)
[2023-04-14 08:03] LABS: Color, Urine Yellow (Yellow); Glucose, Dipstick Normal (Normal); Ketone-Dipstick 5 mg/dl (Negative); Leukocyte Esterase-Dipstick Negative /ul (Negative); Nitrite-Dipstick Negative (Negative); Occult Blood-Urine Negative /ul (Negative); Protein-Dipstick 15 mg/dl (Negative); Specific Gravity, Urine 1.025 (1.002-1.030); Urine Bilirubin Dipstick Negative (Negative); Urine Clarity Sl. Cloudy (Clear); Urine Urobilinogen 1 mg/dl (Normal)
[2023-04-14 08:09] LABS: Bacteria 2+ /hpf (None Seen); Mucous, Urine 1+ /hpf (<or=2+); Squamous Epithelial Cells - UA 5-10 SEEN /hpf (5-10)
[2023-04-14 08:11] LABS: ALB/GLOB Ratio 0.9 RATIO (0.9-2.4); AST(SGOT) 23 U/L (15-37); Alanine Aminotransfer ALT/SGPT 26 U/L (13-56); Alkaline Phosphatase 78 U/L (45-117); Anion Gap 2 (5-15); BUN 10 mg/dL (7-18); BUN/Creat Ratio 10.9 RATIO (10-20); Calcium,Total 8.9 mg/dL (8.5-10.1); Chloride 112 mmol/L (98-107); Creatinine, Serum 0.92 mg/dL (0.55-1.02); EST Glomerular Filtration Rate 71 mL/min (>60); Est Glom Filt Rate - Afr Amer 86 mL/min (>60); Globulin 3.3 g/dL (2.2-4.2); Glucose 101 mg/dL (74-106); Lipase 25 U/L (13-75); Potassium 3.8 mmol/L (3.5-5.1); Protein, Total 6.3 g/dL (6.4-8.2); Sodium Level 145 mmol/L (136-145)
[2023-04-14 08:27] LABS: Amphetamine Urine VISTA NEGATIVE (<1000 ng/mL); Barbiturate Urine VISTA NEGATIVE (< 200 ng/mL); Benzodiazepine Urine VISTA NEGATIVE (< 200 ng/mL); Cocaine Urine VISTA NEGATIVE (< 300 ng/mL); Ecstacy Urine VISTA NEGATIVE (< 500 ng/mL); Methadone Urine VISTA NEGATIVE (< 300 ng/mL); PCP Urine VISTA NEGATIVE (< 25 ng/mL); THC Urine VISTA NEGATIVE (< 50 ng/mL); Vista UDS pH Range 5
[2023-04-14 08:36] LABS: Lactic Acid 0.8 mmol/L (0.4-1.9)
[2023-04-14] MEDS: Acetaminophen 500 MG Tablet 1000 MG PO (08:59)
[2023-04-14 11:12] VITALS: BP 132/70; PULSE 71; RESP 16; O2SAT 97
== END 2023-04-14 11:15 | disposition home or self-care (01) ==
PROVIDERS: Emergency Provider Emergency Medicine; PCP Physician Assistant; Visit Provider Emergency Medicine
DX: R10.31 Right lower quadrant pain (principal); R10.32 Left lower quadrant pain; G89.29 Other chronic pain; K52.9 Noninfective gastroenteritis and colitis, unspecified; R11.10 Vomiting, unspecified; E78.5 Hyperlipidemia, unspecified; Z79.899 Other long term (current) drug therapy; Z87.891 Personal history of nicotine dependence; Z90.710 Acquired absence of both cervix and uterus
CPT/HCPCS: 74177; 80053; 80307; 81001; 83605; 83690; 85025; 96361; 96374; 96375; 99283; J7030; Q9967; A4216; J2405

== ENCOUNTER 2023-05-28 14:16 | Observation (INO) | payer MEDICAID, SELFPAY ==
[2023-05-28 14:16] VITALS: BP 126/88; PULSE 75; RESP 16; TEMP 36.6; O2SAT 99; BMI 37.0
--- NOTE | 2023-05-28 14:34 | CT_ITS ---
STUDY: CT ABDOMEN AND PELVIS WITH CONTRAST REASON FOR EXAM: Female, 42 years old. abdominal pain RADIATION DOSAGE (If Supplied By Facility): CTDIvol = ( 15.57 ) mGy, DLP = ( 1113.14 ) mGycm TECHNIQUE: Transaxial images were obtained from the dome of the diaphragm to the symphysis pubis without oral contrast. IV 100mL Isovue-370 was administered. Sagittal and coronal images were reconstructed. Individualized dose optimization techniques were used for this CT. COMPARISON: None. FINDINGS: The visualized lung bases are unremarkable. The visualized portions of the heart are within normal limits. Normal liver. Normal gallbladder and extrahepatic biliary system. Normal spleen. Normal pancreas. Normal bilateral adrenal glands. Normal right kidney. Normal left kidney. Normal visualized stomach. Dilated distal ileal loops with a transitional point at or near an anastomosis suggesting small bowel obstruction. The distalmost ileal loops are decompressed. Normal colon. The appendix is nonvisualized. Normal abdominal aorta. Normal inferior vena cava. Normal retroperitoneum. Normal urinary bladder. Normal abdominal wall. Normal osseous structures. CT/Abdomen/Pelvis W IV Cont ONLY IMPRESSION: Dilated distal ileal loops with a transitional point at or near an anastomosis suggesting small bowel obstruction. The distalmost ileal loops are decompressed. Electronically Signed: Randall Brock DO at 16:26 EST ,
--- NOTE | 2023-05-28 14:41 | ED.VIS.GI ---
HPI <TEETEE Thompson - Last Filed: 05/28/23 17:23> HPI - GI History of Present Illness Chief Complaint: Abd Pain Narrative Narrative: 42-year-old female states with PMH of extensive abdominal surgeries and bowel obstruction x 2 developed generalized abdominal pain around 6 AM this morning. When she tried to eat she vomited. She has chronic diarrhea about 3-4 times a day and has had 1 episode today. No melena or hematochezia. 1 week ago she had urinary frequency which resolved after drinking cranberry juice. She states she has had an appendectomy, partial hysterectomy followed by a full hysterectomy, subsequent surgery due to ovary infection, and has had 2 bowel obstructions: one that was managed surgically in [place] in 2019 and most recent medically managed obstruction was in November 2021. She does not smoke or drink alcohol. PFSH <TEETEE Thompson - Last Filed: 05/28/23 17:23> [facility] Medical History Bipolar disorder Bowel obstruction Cardiac arrest due to respiratory disorder Chronic pain Former smoker Former tobacco use History of borderline diabetes mellitus History of multiple abdominal surgeries History of small bowel obstruction HLD (hyperlipidemia) Iron deficiency anemia Migraines Obesity Rheumatoid arthritis SBO (small bowel obstruction) Sleep apnea Home Medications acetaminophen 500 mg capsule 500 mg PO Q6H PRN pain 05/28/23 [History Last Taken 05/27/23] Allergy/AdvReac Type Severity Reaction Status Date / Time hydromorphone HCl Allergy Severe Anaphylaxis Verified 05/28/23 14:18 [From Dilaudid] aspirin [From Percodan] Allergy Intermediate Swelling Verified 05/28/23 14:18 oxycodone terephthalate Allergy Intermediate Swelling Verified 05/28/23 14:18 [From Percodan] amoxicillin Allergy Hives Verified 05/28/23 14:18 ampicillin Allergy Swelling Verified 05/28/23 14:18 azithromycin Allergy Other Verified 05/28/23 14:18 erythromycin base Allergy Hives Verified 05/28/23 14:18 fentanyl Allergy Anaphylaxis Verified 05/28/23 14:18 orphenadrine [From Norflex] Allergy Anaphylaxis Verified 05/28/23 14:18 oxycodone HCl [From Percocet] Allergy Anaphylaxis Verified 05/28/23 14:18 propoxyphene napsylate Allergy Other Verified 05/28/23 14:18 [From Darvocet-N] Sulfa (Sulfonamide Allergy Other Verified 05/28/23 14:18 Antibiotics) tramadol Allergy Hives Verified 05/28/23 14:18 Family History Father Cancer Hx Leukemia. Diabetes CVA (cerebral vascular accident) Mother Cancer Surgical History H/O: hysterectomy History of appendectomy History of bowel resection History of cholecystectomy S/P cholecystectomy S/P exploratory laparotomy Social History household members: family Smoking Status: Former smoker alcohol intake: never substance use type: does not use ROS <TEETEE Thompson - Last Filed: 05/28/23 17:23> ROS ED ROS Narrative Constitutional: Negative for fever, chills, malaise. CVS: Negative for chest pain, syncope. Respiratory: Negative for shortness of breath, cough. GI: Positive for abdominal pain, nausea, vomiting, diarrhea. : Negative for dysuria, hematuria. EXAM <TEETEE Thompson - Last Filed: 05/28/23 17:23> Physical Exam Narrative Exam Narrative: CONST: Patient appears uncomfortable. EYES: Normal inspection. ENT: Normal inspection, moist mucous membranes. NECK: Normal inspection. RESP: No respiratory distress, CTAB. CVS: Regular rate and rhythm, no murmur, no gallop. ABD: Soft with diffuse abdominal tenderness and mild peritonitis, nondistended. Normal bowel sounds x 4. SKIN: Color normal, no rash, warm, dry, intact. EXTREMITIES: Normal appearance, no pedal edema. NEURO: Oriented x4. PSYCH: Normal affect. Const Vital Signs: 05/28/23 14:16 05/28/23 16:16 Temperature 98 F Temperature Source Temporal Pulse Rate 75 Respiratory Rate 16 16 Blood Pressure 126/88 H Blood Pressure Mean 100 Pulse Ox 99 Oxygen Delivery Method Room Air <Dr. Parminder Way DO - Last Filed: 05/28/23 17:44> Physical Exam Const Vital Signs: 05/28/23 14:16 05/28/23 16:16 Temperature 98 F Temperature Source Temporal Pulse Rate 75 Respiratory Rate 16 16 Blood Pressure 126/88 H Blood Pressure Mean 100 Pulse Ox 99 Oxygen Delivery Method Room Air [facility] <TEETEE Thompson - Last Filed: 05/28/23 17:23> [facility] Narrative Medical decision making narrative: Patient has had abdominal pain, nausea vomiting, and decreased stool output that started this morning. She has history of of multiple surgeries and obstructions. She appears well and nontoxic. Vital signs stable. Mother manage abdomen is soft with diffuse tenderness with voluntary guarding. No rigidity. Labs are within normal limits with white count of 6.1, CMP unremarkable, lactate 0.4. CT shows dilated distal ileal loops with a transition point near the anastomosis suggesting SBO. After IV fluids, Toradol, and Zofran here patient has had no further vomiting and is still passing gas. I discussed the case with Dr. Orona in general surgery who initially recommended NG but after assessing patient states she has not vomited since 7:30 AM and is passing gas so we will hold off on the NG. Of note I did not order morphine since she has an anaphylactic allergy to hydromorphone. Differential: Ileus, obstruction, diverticulitis Consults: General surgery, hospitalist Lab Data Attestation: I reviewed the patient's lab results. Labs: Laboratory Results - last 24 hr 05/28/23 15:10 WBC 6.1 RBC 4.61 Hgb 12.8 Hct 41.0 MCV 88.9 MCH 27.8 MCHC 31.2 L RDW Std Deviation 45.7 H RDW Coeff of Yovana 14.3 Plt Count 198 MPV 9.8 Immature Gran % (Auto) 0.300 Neut % (Auto) 58.0 Lymph % (Auto) 32.1 [place] % (Auto) 6.9 Eos % (Auto) 2.0 Baso % (Auto) 0.7 Absolute Neuts (auto) 3.6 Absolute Lymphs (auto) 1.96 Nucleated RBC % 0 Sodium 145 Potassium 3.9 Chloride 112 H Carbon Dioxide 30.0 Anion Gap 3 L BUN 11 Creatinine 0.94 Estim Creat Clear Calc 84.51 Est GFR (MDRD) Af Amer 84 Est GFR (MDRD) Non-Af 69 BUN/Creatinine Ratio 11.8 Glucose 96 Lactic Acid 0.4 Calcium 9.3 Total Bilirubin 0.40 AST 20 ALT 29 Alkaline Phosphatase 96 Total Protein 6.8 Albumin 3.4 Globulin 3.4 Albumin/Globulin Ratio 1.0 Lipase 29 Radiography Diagnostic Testing: Clinical Impression(s) from Imaging Studies Abdomen/Pelvis CT 05/28/23 14:34 IMPRESSION: Dilated distal ileal loops with a transitional point at or near an anastomosis suggesting small bowel obstruction. The distalmost ileal loops are decompressed. Electronically Signed: Randall Brock DO at 16:26 EST , <Dr. Parminder Way DO - Last Filed: 05/28/23 17:44> [facility] Lab Data Labs: Laboratory Results - last 24 hr 05/28/23 15:10 WBC 6.1 RBC 4.61 Hgb 12.8 Hct 41.0 MCV 88.9 MCH 27.8 MCHC 31.2 L RDW Std Deviation 45.7 H RDW Coeff of Yovana 14.3 Plt Count 198 MPV 9.8 Immature Gran % (Auto) 0.300 Neut % (Auto) 58.0 Lymph % (Auto) 32.1 [place] % (Auto) 6.9 Eos % (Auto) 2.0 Baso % (Auto) 0.7 Absolute Neuts (auto) 3.6 Absolute Lymphs (auto) 1.96 Nucleated RBC % 0 Sodium 145 Potassium 3.9 Chloride 112 H Carbon Dioxide 30.0 Anion Gap 3 L BUN 11 Creatinine 0.94 Estim Creat Clear Calc 84.51 Est GFR (MDRD) Af Amer 84 Est GFR (MDRD) Non-Af 69 BUN/Creatinine Ratio 11.8 Glucose 96 Lactic Acid 0.4 Calcium 9.3 Total Bilirubin 0.40 AST 20 ALT 29 Alkaline Phosphatase 96 Total Protein 6.8 Albumin 3.4 Globulin 3.4 Albumin/Globulin Ratio 1.0 Lipase 29 Radiography Diagnostic Testing: Clinical Impression(s) from Imaging Studies Abdomen/Pelvis CT 05/28/23 14:34 IMPRESSION: Dilated distal ileal loops with a transitional point at or near an anastomosis suggesting small bowel obstruction. The distalmost ileal loops are decompressed. Electronically Signed: Randall Brock DO at 16:26 EST , Treatment and Re-Evaluation :: ED attending note: I evaluated the patient in conjunction with the ARI. I agree with his/her statements and above findings. I have personally performed a face to face assessment of the patient and have reviewed the ARI Note. I performed a substantive portion of the visit including all aspects of the following. I personally saw the patient performed chart review, physical exam, reviewed labs, imaging (if obtained), and formulated a treatment and management plan. This note was generated with [employer] dictation software. It may contain incorrect words, spelling, and punctuation that were not noted in review of the chart prior to signing. Discharge Plan Dx/Rx/DC Orders Clinical Impression: Complete small bowel obstruction Disposition Disposition: Acute Care Hospital [facility] Discharge Date/Time: 05/28/23 17:42
[2023-05-28] MEDS: 0.9% Normal Saline (1000mL) 1,000 ML 999 ML IV (15:06)
[2023-05-28] MEDS: Ondansetron 4 MG/2 ML Vial IV (15:07)
[2023-05-28] MEDS: Ketorolac 15 MG/ML Vial IV ×3 (15:08→23:14)
[2023-05-28 15:29] LABS: Absolute Lymphocyte Count 1.96 X10^3/uL (0.83-4.51); Absolute Neutrophil Count 3.6 X10^3/uL (2.0-7.7); Basophil# 0.04 X10^3/uL; Basophil% 0.7 % (0-1); Eosinophil# 0.12 X10^3/uL; Hemoglobin 12.8 g/dL (12.0-15.0); Lymphocyte # 1.96 X10^3/ul (0.83-4.51); Lymphocyte % 32.1 % (19-41); Mean Corp Hgb Conc 31.2 g/dL (32-36); Mean Corpuscular Hgb 27.8 pg (27.0-32.0); Mean Corpuscular Volume 88.9 fL (81-99); Mean Platelet Vol. 9.8 fl (6.2-12.0); Monocyte# 0.42 X10^3/uL; Monocyte% 6.9 % (0-10); NRBC Flagged by Analyzer 0 % (0-5); Neutrophil # 3.55 X10^3/uL (2.7-7.7); Platelet Count 198 K/mm3 (150-450); RBC Distribution Width CV 14.3 % (11.6-14.6); RBC Distribution Width SD 45.7 fl (35.1-43.9); Red Blood Count 4.61 M/mm3 (4.2-5.4); White Blood Count 6.1 K/mm3 (4.4-11.0)
[2023-05-28 15:51] LABS: AST(SGOT) 20 U/L (15-37); Alanine Aminotransfer ALT/SGPT 29 U/L (13-56); Albumin, Serum 3.4 g/dL (3.2-5.0); Alkaline Phosphatase 96 U/L (45-117); Anion Gap 3 (5-15); BUN 11 mg/dL (7-18); BUN/Creat Ratio 11.8 RATIO (10-20); Calcium,Total 9.3 mg/dL (8.5-10.1); Chloride 112 mmol/L (98-107); Creatinine, Serum 0.94 mg/dL (0.55-1.02); EST Glomerular Filtration Rate 69 mL/min (>60); Est Glom Filt Rate - Afr Amer 84 mL/min (>60); Estimated Creatinine Clearance 84.51 ml/min; Globulin 3.4 g/dL (2.2-4.2); Glucose 96 mg/dL (74-106); Lipase 29 U/L (13-75); Potassium 3.9 mmol/L (3.5-5.1); Protein, Total 6.8 g/dL (6.4-8.2); Sodium Level 145 mmol/L (136-145)
[2023-05-28 15:54] LABS: Lactic Acid 0.4 mmol/L (0.4-1.9)
[2023-05-28 16:16] VITALS: RESP 16
--- OUTSIDE RECORDS SUMMARY | 2023-05-28 16:45 | XMS RPT_ITS | CCD ---
Author Name Unknown Address [address] [place] [address] Organization [facility] Care Team Providers Care Revenue Stamper Name Role Phone America Luz MD Primary Care Provider AMERICA LUZ Referring Unavailable AMERICA LUZ Primary Care Unavailable AMERICA LUZ Attending Unavailable AMERICA LUZ Primary Care Unavailable AMERICA LUZ Primary Care Unavailable AMERICA LUZ Primary Care Unavailable AMERICA LUZ Primary Care Unavailable AMERICA ULZ Primary Care Unavailable KHUSHBOO COOPER Attending Unavailable AMERICA LUZ Referring Unavailable HAI REEDER Attending Unavailable AMERICA LUZ Primary Care Unavailable Allergies Allergy Classification Reported Allergen(s) Allergy Type Date of Onset Reaction(s) Facility (13 sources) Acetaminophen / oxyCODONE; Translations: [OXYCODONE-ACETAM INOPHEN] Drug Allergy 1 Shortness of Breath [facility] (13 sources) Amoxicillin; Translations: [AMOXICILLIN] Drug Allergy 2 Hives [facility] (13 sources) atorvastatin; Translations: [ATORVASTATIN] Drug Allergy 4 Vomiting [facility] (13 sources) Erythromycin; Translations: [ERYTHROMYCIN] Drug Allergy 0 Intolerance [facility] Work Phone: (13 sources) HYDROmorphone; Translations: [HYDROMORPHONE (BULK)] Drug Allergy 5 Anaphylaxis [facility] (13 sources) meloxicam; Translations: [MELOXICAM] Drug Allergy 4 Other: See Comments [facility] (13 sources) Naproxen; Translations: [NAPROXEN] Drug Allergy 1 Itching [facility] Work Phone: (13 sources) Pravastatin; Translations: [PRAVASTATIN] Drug Allergy 7 Itching [facility] Work Phone: (13 sources) risperiDONE; Translations: [RISPERIDONE] Drug Allergy 5 Swelling [facility] (13 sources) traMADol; Translations: [TRAMADOL] Drug Allergy 3 Intolerance [facility] Work Phone: (13 sources) Propoxyphene N-Acetaminophen; Translations: [PROPOXYPHENE N-ACETAMINOPHEN] Drug Allergy 2 Mental Status Change [facility] (13 sources) Sulfate Salt; Translations: [SULFATE SALT] Drug Allergy 6 Swelling [facility] (12 sources) zpack [Other] Propensity to adverse reactions 6 Mental Status Change [facility] (1 source) OTHER; Translations: [OTHER] Propensity to adverse reactions (disorder) 6 [facility] Repository Medications Current Medications Medication Drug Class(es) Dates Sig (Normalized) Sig (Original) polymyxin b 81703 unt/ml / trimethoprim 1 mg/ml ophthalmic solution [...] 98.1 [degF] Krislyn Aberegg PA Work Phone: [facility] 08-18-2022 10:57-0400 Diastolic blood pressure 76 mm[Hg] Krislyn Aberegg PA Work Phone: [facility] 08-18-2022 10:57-0400 Heart rate 97 /min Krislyn Aberegg PA Work Phone: [facility] 08-18-2022 10:57-0400 Respiratory rate 22 /min Krislyn Aberegg PA Work Phone: [facility] 08-18-2022 10:57-0400 SaO2% (BldA) [Mass fraction] 99 % Krislyn Aberegg PA Work Phone: [facility] 08-18-2022 10:57-0400 Systolic blood pressure 128 mm[Hg] Krislyn Aberegg PA Work Phone: [facility] 07-29-2022 14:41-0400 Diastolic blood pressure 60 mm[Hg] Khushboo Haagen PRACTICE OFFICE ASSOCIATE.GLOVE PRESSER Work Phone: [facility] 07-29-2022 14:41-0400 Heart rate 98 /min Khushboo Haagen PRACTICE OFFICE ASSOCIATE.GLOVE PRESSER Work Phone: [facility] 07-29-2022 14:41-0400 Respiratory rate 18 /min Khushboo Haagen PRACTICE OFFICE ASSOCIATE.GLOVE PRESSER Work Phone: [facility] 07-29-2022 14:41-0400 SaO2% (BldA) [Mass fraction] 96 % Khushboo Haagen PRACTICE OFFICE ASSOCIATE.GLOVE PRESSER Work Phone: [facility] 07-29-2022 14:41-0400 Systolic blood pressure 98 mm[Hg] Khushboo Haagen PRACTICE OFFICE ASSOCIATE.GLOVE PRESSER Work Phone: [facility] 06-03-2022 15:28-0500 Body weight 92.08 kg America Luz MD Work Phone: [facility] 06-03-2022 15:28-0500 Diastolic blood pressure 62 mm[Hg] America Luz MD Work Phone: [facility] 06-03-2022 15:28-0500 Heart rate 83 /min America Luz MD Work Phone: [facility] 06-03-2022 15:28-0500 SaO2% (BldA) [Mass fraction] 95 % America Luz MD Work Phone: [facility] 06-03-2022 15:28-0500 Systolic blood pressure 102 mm[Hg] America Luz MD Work Phone: [facility] 04-28-2022 18:39-0500 Body temperature 98.71 [degF] Sopyh Denbow PA-C Work Phone: [facility] 04-28-2022 18:39-0500 Body weight 91.63 kg Sophy Denbow PA-C Work Phone: [facility] 04-28-2022 18:39-0500 Diastolic blood pressure 64 mm[Hg] Sophy Denbow PA-C Work Phone: [facility] 04-28-2022 18:39-0500 Heart rate 84 /min Sophy Denbow PA-C Work Phone: [facility] 04-28-2022 18:39-0500 Respiratory rate 16 /min Sophy Denbow PA-C Work Phone: [facility] 04-28-2022 18:39-0500 SaO2% (BldA) [Mass fraction] 96 % Sophy Denbow PA-C Work Phone: [facility] 04-28-2022 18:39-0500 Systolic blood pressure 102 mm[Hg] Sophy Denbow PA-C Work Phone: [facility] Encounters Encounter Date Encounter Type Care Provider Facility Start: 08-18-2022 End: 08-18-2022 ambulatory AMERICA LUZ Facility:[facility] Start: 08-18-2022 End: 08-18-2022 Patient encounter procedure Luis Alfredo KINGSLEY Work Phone: [facility] Procedures Date Procedure Procedure Detail Performing Clinician Start: 07-29-2022 COVID WITH FLUA+B, ROUTINE Khushboo Haagen PRACTICE OFFICE ASSOCIATE.GLOVE PRESSER Work Phone: Start: 07-29-2022 STREP A MOLECULAR (POC) Khushboo Zamarripaagen PRACTICE OFFICE ASSOCIATE.GLOVE PRESSER Work Phone: Start: 05-21-2016 Adult depression screening assessment America Luz MD Work Phone: Plan of Treatment Date Care Activity Detail Author Start: 04-24-2025 Urine microalbumin profile DTAP,TDAP,TD (2 - Td or Tdap) [facility] Start: 06-03-2022 End: 08-03-2022 CBC W Auto Differential panel - Blood CBC + DIFF Lab Routine Hyperlipidemia, unspecified hyperlipidemia type Expected: 06/03/2022, Expires: 08/03/2022 [facility] Work Phone: Immunizations Immunization Date Immunization Notes Care Provider Olive porras 03-12-2022 influenza, seasonal, injectable Khushboo Haagen PRACTICE OFFICE ASSOCIATE.GLOVE PRESSER Work Phone: [facility] 04-26-2020 influenza, injectabl e, quadrivalent, preservative free Khushboo Haagen PRACTICE OFFICE ASSOCIATE.GLOVE PRESSER Work Phone: [facility] 02-08-2018 influenza, seasonal, injectable, preservative free Khushboo Haagen PRACTICE OFFICE ASSOCIATE.GLOVE PRESSER Work Phone: [facility] 05-21-2016 influenza, injectabl e, quadrivalent, contains preservative America Luz MD Work Phone: [facility] 04-24-2015 tetanus toxoid, redu daniel diphtheria toxoid, and acellular pertussis vaccine, adsorbed Khushboo Haagen PRACTICE OFFICE ASSOCIATE.GLOVE PRESSER Work Phone: [facility] 02-22-2015 influenza, injectabl e, quadrivalent, contains preservative America Luz MD Work Phone: [facility] 01-17-2014 influenza, seasonal, injectable America Luz MD Work Phone: [facility] 01-17-2014 pneumococcal polysaccharide vaccine, 23 valent America Luz MD Work Phone: [facility] Payers Date Payer Category Payer Medicaid [id number] 2021 Medicaid [id number] 2021 Medicaid [id number] 2020 Medicaid [facility] MEDICAID [employer] MEDICAID [id number] 2020-Present [phone] [address] [place] [address] Medicaid [id number] Social History Date Type Detail Facility Start: 10-28-2020 End: 04-28-2022 Tobacco smoking status NHIS Ex-smoker [facility] End: 01-11-2020 History of tobacco use Current smoker [facility] End: 01-11-2020 History of tobacco use Cigarette Smoker [facility] Start: 10-28-2020 End: 04-28-2022 Cigarettes smoked current (pack per day) - Reported 0.25 [facility] Start: 10-28-2020 End: 04-28-2022 Tobacco use and exposure Smokeless tobacco non-user [facility] Start: 06-09-2021 End: 08-18-2022 Alcohol intake Current non-drinker of alcohol (finding) [facility] Start: 1980 Sex Assigned At Not on file [facility] Clinical Notes 02-16-2013 to 09-16-2022 TEETEE Tang - 08/18/2022 11:05 AM Ayaz Fragoso Ma - 07/30/2022 1:50 PM EDTTelephone Encounter - Kerry Fragoso Ma - 07/30/2022 10:36 AM EDTPatient Instructions Note Date & Type Note Facility 09-16-2022 Note Patient Outreach (IN TMMN) SARAHPETE ([id number]) 1980 F Date Time Provider Department 09/16/22 [...] for screening mammogram for breast cancer [Z12.31] Order(s):[facility] SCREENING [[id number]] Order #: [id number] FUTURE Prescriptions as of 09/21/2022 - Kheuuukprrlyrkr-Jqpaueuof-NZ (BROMFED DM) 2-30-10 mg/5 mL syrup Take [...] Encounter Status:Closed by EPIC, PRODUSER on 09/21/22 [facility] 08-18-2022 Note HNO ID: [id number] Author: RT Jori(R) Service: Nuclear Medicine Author [...] RT Jori(R) August 18, 2022 11:28 AM [facility] 08-18-2022 Note HNO ID: [id number] Author: TEETEE Tang Service: ? Author Type: Physician Press Assistant And Feeder Type: Progress Notes Filed: 08/18/2022 12:07 PM Note Text: This note was created using IssueNationriter. Subjective Pete Wright is a 41 year [...] BHARATH, small bowel resection Dr. Sumit Cutler [facility] will TOTAL ABDOMINAL HYSTERECT W/WO RMVL TUBE OVARY 09/2005 after vag delivery-hemorrhage, AT/WB ALLERGIES Amoxicillin, Darvocet A500 [Propoxyphene N-Acetaminophen], Dilaudid [Hydromorphone (Bulk)], Erythromycin, Lipitor [Atorvastatin], Meloxicam, Naproxen, Percocet [Oxycodone-Acetaminophen], Pravastatin, Risperidone, Sulfate Salt, Tramadol, and Zpack [Other] MEDICATIONS acetaminophen (TYLENOL) 325 mg tablet Take 650 mg by mouth every 6 hours as needed. Hwjezurhrffxncv-Shfvxtdug-YY (BROMFED DM) 2-30-10 mg/5 mL syrup Take [...] prompt ER evaluation. (more content not included)... [facility] 08-18-2022 History of Presen t illness Narrative This note was created using IssueNationriter. Subjective Pete Wright is a 41 year [...] BHARATH, small bowel resection Dr. Sumit Cutler [facility] will TOTAL ABDOMINAL HYSTERECT W/WO RMVL TUBE OVARY 09/2005 after vag delivery-hemorrhage, AT/WB ALLERGIES Amoxicillin, Darvocet A500 [Propoxyphene N-Acetaminophen], Dilaudid [Hydromorphone (Bulk)], Erythromycin, Lipitor [Atorvastatin], Meloxicam, Naproxen, Percocet [Oxycodone-Acetaminophen], Pravastatin, Risperidone, Sulfate Salt, Tramadol, and Zpack [Other] MEDICATIONS acetaminophen (TYLENOL) 325 mg tablet Take 650 mg by mouth every 6 hours as needed. Zgefvexwazcgclq-Ivgbunqbc-ZT (BROMFED DM) 2-30-10 mg/5 mL syrup Take [...] evaluation. TEETEE Tang documented in this encounter [facility] 07-30-2022 Note HNO ID: [id number] Author: Kerry Fragoso Ma Service: ? Author Type: ? Type: Progress Notes Filed: 07/30/2022 1:55 PM Note Text: POPULATION HEALTH NAVIGATION OUTREACH Action/FYI Pt recently seen 07/29/22, order placed 10/08/21 Patient Identified by Name and : YES, Outreach Outcome/Action Letter mailed Did you use a PCP flex slot to schedule this appointment? N/A Reason for Outreach Care Gap or Scheduling/Wellness visits Payer: Payor: [facility] MEDICAID / Plan: [facility] COMMUNITY [employer]AN MEDICAID [facility] [...] Fragoso Ma July 30, 2022 1:50 PM [facility] 07-30-2022 Note Patient Outreach (FA MPWS) PETE WRIGHT ([id number]) 1980 F Date Time Provider Department 07/30/22 [...] Care Gap or Scheduling/Wellness visits Payer: Payor: [facility] MEDICAID / Plan: [facility] COMMUNITY [employer]AN MEDICAID [facility] [...] Cmt: Mammogram Prescriptions as of 07/30/2022 - Pphgwxudtrpcfrs-Qgdovwxok-TQ (BROMFED DM) 2-30-10 mg/5 mL syrup Take [...] Status:Closed by KERRY FRAGOSO MA on 07/30/22 [facility] 07-30-2022 History of Presen t illness Narrative POPULATION HEALTH NAVIGATION OUTREACH Action/FYI Pt recently seen 07/29/22, order placed 10/08/21 Patient Identified by Name and : YES, Outreach Outcome/Action Letter mailed Did you use a PCP flex slot to schedule this appointment? N/A Reason for Outreach Care Gap or Scheduling/Wellness visits Payer: Payor: [facility] MEDICAID / Plan: [facility] COMM[employer]AN MEDICAID [facility] [...] 2022 1:50 PM documented in this encounter [facility] 07-30-2022 Miscellaneous Notes Patient was made aware of the results. Patient verbalizes understanding. Kerry Fragoso Ma ----- Message from Mesfin Ramos PA-C sent at 07/30/2022 10:13 AM EDT ----- Please let her know Covid and flu negative Thanks, Gamaliel Ramos PA-C documented in this encounter [facility] 07-30-2022 Miscellaneous Notes Patient calling asking for COVID test results. COVID WITH FLUA+B, ROUTINE Order: [id number] Status: Final result Visible to patient: No [...] B by RT PCR R Resulting Agency [facility] Went over results of COVID and Influenza A and B tests with understanding. documented in this encounter [facility] 07-29-2022 Note HNO ID: [id number] Author: Khushboo Cooper APRN.GLOVE PRESSER Service: ? Author Type: Nurse Practitioner Type: [...] BHARATH, small bowel resection Dr. Sumit Cutler [facility] will TOTAL ABDOMINAL HYSTERECT W/WO RMVL TUBE [...] ROUTINE - BROMPHENIRAMINE-PSE (more content not included)... [facility] 07-29-2022 Instructions Khushboo Cooper APRN.BROOKE - 07/29/2022 [...] please notify provider. documented in this encounter [facility] 07-29-2022 History of Presen t illness Narrative [...] CHOLECYSTECTOMY Cholecystectomy CONSULT TO COLO-RECTAL SURGERY 04/14/2008,04/16/2008 [facility] EXPLORATORY LAPAROTOMY CELIOTOMY W/WO BIOPSY SPX Laparotomy, exp. Adhesiolysis. Abdominal wall resection (mesh included), primary closure. OOPHORECTOMY PARTIAL/TOTAL UNI/BI just one left ovary and both tubes OOPHORECTOMY PARTIAL/TOTAL UNI/BI 2007 [facility] right ovary PAST SURGICAL HISTORY OF Bowel resection PAST SURGICAL HISTORY OF 01/25/2020 SBO: exp lap, BHARATH, small bowel resection Dr. Sumit [facility]ler [facility] will TOTAL ABDOMINAL HYSTERECT W/WO [...] with the plan. documented in this encounter [facility] 06-22-2022 Note HNO ID: [id number] Author: Hai Reeder MD Service: ? Author Type: Physician Type: Progress Notes Filed: 07/07/2022 4:54 PM Note Text: Hai Reeder MD Department of Orthopaedics Orthopaedics [address] [place] [address] Dept: [phone] Dept June 22, 2022 CHIEF COMPLAINT: New [...] seems to help. She was seen at [facility] ER for shoulder pain on 06/10/22 and was prescribed hydrocodone-acetaminophen which helps but she only takes it at night. Patient is R hand dominant and works at [employer] where she is constantly reaching, stocking, pushing [...] of degenerative changes in the acromioclavicular joint. Assignment Desk Editor: WILEY Transcribe Date/Time: Jun 05 2022 4:52P Dictated [...] CHOLECYSTECTOMY Cholecystectomy CONSULT TO COLO-RECTAL SURGERY 04/14/2008,04/16/2008 [facility] EXPLORATORY LAPAROTOMY CELIOTOMY W/WO BIOPSY SP (more content not included)... [facility] 06-22-2022 History of Presen t illness Narrative Hai Reeder MD Department of Orthopaedics Orthopaedics [address] [address] Dept: [phone] Dept June 22, 2022 CHIEF COMPLAINT: New [...] seems to help. She was seen at [facility] ER for shoulder pain on 06/10/22 and was prescribed hydrocodone-acetaminophen which helps but she only takes it at night. Patient is R hand dominant and works at [employer] where she is constantly reaching, stocking, pushing [...] of degenerative changes in the acromioclavicular joint. Assignment Desk Editor: [facility] Transcribe Date/Time: Jun 05 2022 [...] BHARATH, small bowel resection Dr. Sumit Cutler [facility] will TOTAL ABDOMINAL HYSTERECT W/WO RMVL TUBE [...] physician via US mail. America Luz [address] [facility] [address] Hai Reeder MD documented in this encounter [facility] 06-08-2022 Miscellaneous Notes Patient notified. Xray shows mild degenerative changes. See ortho as we already ordered documented in this encounter [facility] 06-03-2022 Note HNO ID: [id number] Author: RT Jori(R) Service: Nuclear Medicine Author [...] RT Jori(R) June 03, 2022 4:18 PM [facility] 06-03-2022 Note HNO ID: [id number] Author: America Luz MD Service: ? Author Type: Physician Type: Progress Notes Filed: 06/03/2022 3:48 PM Note Text: Patient presents with: Pain (Shoulder Pain): right HPI: Patient presents today for office visit for follow up. HOSPITAL/ER FOLLOW UP: Reason for visit: right shoulder pain Which facility: [facility] Date of visit: 06/02/22 Diagnosis: right shoulder tendiitis Treatment given: augie states that makes her too sleepy Current symptoms: did have some numbness Asking about light duty Working at [employer] Also asking about a splint Whole are [...] BHARATH, small bowel resection Dr. Sumit [facility] will TOTAL ABDOMINAL HYSTERECT W/WO RMVL TUBE [...] E78.5 (primary diagnosi (more content not included)... [facility] 06-03-2022 Miscellaneous Notes Addended by: AMERICA LUZ on: 06/03/2022 04:17 PM Modules accepted: Orders documented in this encounter [facility] 06-03-2022 History of Presen t illness Narrative Patient presents with: Pain (Shoulder Pain): right HPI: Patient presents today for office visit for follow up. HOSPITAL/ER FOLLOW UP: Reason for visit: right shoulder pain Which facility: [facility] Date of visit: 06/02/22 Diagnosis: right shoulder tendiitis Treatment given: norjoshua states that makes her too sleepy Current symptoms: did have some numbness Asking about light duty Working at [employer] Also asking about a splint Whole are [...] BHARATH, small bowel resection Dr. Sumit Cut[facility] will TOTAL ABDOMINAL HYSTERECT W/WO [...] AP/OTHER LEFT - CONSULT TO ORTHOPAEDICS - SHARON, ARM America Luz MD documented in this encounter [facility] 04-28-2022 Note HNO ID: [id number] Author: Sophy Hampton PA-C Service: ? Author Type: Physician Press Assistant And Feeder Type: Progress Notes Filed: 04/28/2022 6:56 PM [...] agrees with the plan. Sophy Hampton PA-C [facility] 04-28-2022 History of Presen t illness Narrative [...] Sophy Hampton PA-C documented in this encounter [facility] 03-19-2022 Miscellaneous Notes TRANSITION CARE MANAGEMENT (TCM) INITIAL CONTACT It Desktop Support Technician Outreach Provider Action/FYI: [facility] abdominal pain, small bowel obstruction Patient said she was given a medication that she reacted badly to had cardiac arrest she said I and they brought me back this has happened few times at [facility], she can not take certain medications and they still give them to her. Initial contact with patient post discharge, spoke to patient. Patient identified by name and . TRANSITION CARE MANAGEMENT INITIAL OUTREACH DOCUMENTATION: No flowsheet data found. SUMMARY: -Pt discharged from [facility] on 03/13/2022. -Admitted for: 03/09/2022 Do [...] discharge instructions/AVS . Restate discharge instructions from [facility] verbally, copy/paste via zeeWAVEShart, mail, or provide in person. Do you have all the necessary equipment and supplies at home? No, follow site specific process to secure durable medical equipment and/or supplies for the patient, handoff to RN/CERTIFIED PHARMACY TECHNICIAN, or LIP Medical records from recent hospitalization: Care Everywhere Attempted to reach patient. No answer, voicemail not set up. Kerry Fragoso Ma Please reach out for KWASI Duran: SBO and respiratory arrest , d/c 03/12/2022 and no appointment. Thanks, Gamaliel Ramos PA-C documented in this encounter [facility] 12-05-2021 Miscellaneous Notes Patient calling she was sent home from work Wednesday and did home COVID test was positive. Patient said she had sore throat, nothing else. Now she has a runny nose. Asking what can she take for her symptoms. Advised going to [facility] care for evaluation, patient thought she could go back to work already. Explained about the CDC guidelines to her. documented in this encounter [facility] 10-08-2021 Note Patient Outreach (IN TMMN) PETE WRIGHT ([id number]) 1980 F Date Time Provider Department 10/08/21 [...] for screening mammogram for breast cancer [Z12.31] Order(s):[facility] SCREENING [[id number]] Order #: [id number] FUTURE Prescriptions as of 10/13/2021 - acetaminophen [...] Encounter Status:Closed by EPIC, PRODUSER on 10/13/21 [facility] documented as of this encounter (statuses as of 10/13/2021) [facility] History of Past illness Narrative* Problem Noted Date Resolved Date Closed nondisplaced fracture of fifth left metat arsal bone 02/16/2013 09/15/2013 Disorders of bursae and tend ons in shoulder region, unspecified 01/23/2008 03/13/2010 Other specified complication, antepartum(646.83) 09/15/2005 03/13/2010 documented as of this encounter (statuses as of 01/02/2022) [facility] History of Past illness Narrative* Problem Noted Date Resolved Date Closed nondisplaced fracture of fifth left metat arsal bone 02/16/2013 09/15/2013 Disorders of bursae and tend ons in shoulder region, unspecified 01/23/2008 03/13/2010 Other specified complication, antepartum(646.83) 09/15/2005 03/13/2010 documented as of this encounter (statuses as of 04/29/2022) [facility] History of Past illness Narrative* Problem Noted Date Resolved Date Closed nondisplaced fracture of fifth left metat arsal bone 02/16/2013 09/15/2013 Disorders of bursae and tend ons in shoulder region, unspecified 01/23/2008 03/13/2010 Other specified complication, antepartum(646.83) 09/15/2005 03/13/2010 documented as of this encounter (statuses as of 04/29/2022) Dawn [place] [address]07-2013 History of Past illness Narrative* Problem Noted Date Resolved Date Closed nondisplaced fracture of fifth left metat arsal bone 02/16/2013 09/15/2013 Disorders of bursae and tend ons in shoulder region, unspecified 01/23/2008 03/13/2010 Other specified complication, antepartum(646.83) 09/15/2005 03/13/2010 documented as of this encounter (statuses as of 06/03/2022) [place] [address]07-2013 History of Past illness Narrative* Problem Noted Date Resolved Date Closed nondisplaced fracture of fifth left metat arsal bone 02/16/2013 09/15/2013 Disorders of bursae and tend ons in shoulder region, unspecified 01/23/2008 03/13/2010 Other specified complication, antepartum(646.83) 09/15/2005 03/13/2010 documented as of this encounter (statuses as of 06/08/2022) [facility] History of Past illness Narrative* Problem Noted Date Resolved Date Closed nondisplaced fracture of fifth left metat arsal bone 02/16/2013 09/15/2013 Disorders of bursae and tend ons in shoulder region, unspecified 01/23/2008 03/13/2010 Other specified complication, antepartum(646.83) 09/15/2005 03/13/2010 documented as of this encounter (statuses as of 07/07/2022) [facility] History of Past illness Narrative* Problem Noted Date Resolved Date Closed nondisplaced fracture of fifth left metat arsal bone 02/16/2013 09/15/2013 Disorders of bursae and tend ons in shoulder region, unspecified 01/23/2008 03/13/2010 Other specified complication, antepartum(646.83) 09/15/2005 03/13/2010 documented as of this encounter (statuses as of 07/30/2022) [facility] History of Past illness Narrative* Problem Noted Date Resolved Date Closed nondisplaced fracture of fifth left metat arsal bone 02/16/2013 09/15/2013 Disorders of bursae and tend ons in shoulder region, unspecified 01/23/2008 03/13/2010 Other specified complication, antepartum(646.83) 09/15/2005 03/13/2010 documented as of this encounter (statuses as of 07/30/2022) [address]07-2013 History of Past illness Narrative* Problem Noted Date Resolved Date Closed nondisplaced fracture of fifth left metat arsal bone 02/16/2013 09/15/2013 Disorders of bursae and tend ons in shoulder region, unspecified 01/23/2008 03/13/2010 Other specified complication, antepartum(646.83) 09/15/2005 03/13/2010 documented as of this encounter (statuses as of 07/31/2022) [facility] History of Past illness Narrative* Problem Noted Date Resolved Date Closed nondisplaced fracture of fifth left metat arsal bone 02/16/2013 09/15/2013 Disorders of bursae and tend ons in shoulder region, unspecified 01/23/2008 03/13/2010 Other specified complication, antepartum(646.83) 09/15/2005 03/13/2010 documented as of this encounter (statuses as of 08/18/2022) [facility] note* Diagnosis Encounter for screening mammogram for breast cancer documented in this encounter [facility] note* Diagnosis Eye irritation- Primary Other ill-defined disorder of eye Blepharitis of both upper and lower eyelid of left eye, unspecified type documented in this encounter [facility] note* Diagnosis Hyperlipidemia, unspecified hyperlipidemia type- Primary Acute pain of right shoulder documented in this encounter [facility] note* Diagnosis Shoulder impingement- Primary Other affections of shoulder region, not elsewhere classified Acute pain of right shoulder documented in this encounter [facility] note* Diagnosis Viral upper respiratory tract infection- Primary Acute upper respiratory infections of unspecified site Sore throat Acute pharyngitis documented in this encounter [facility] note* Diagnosis Pain in lower jaw- Primary Jaw pain documented in this encounter [facility] for referral (narrative)* Diagnostic Procedure Only (Routine) - Pending Review Specialty Diagnoses / Procedures Referred By Burton barnes Referred To Contact BR IMAGING Diagnoses Encounter for screening mammogram for breast cancer Procedures MARCIAL SCREENING SCREENING MAMMOGRAPHY BI 2-VIEW BREAST INC CAD America Luz MD [address] [place] [address] [facility] [address] [place] [address] Referral ID Status Reason Start Date Expiration Date Visits Requested Visits Authorized [id number] Pending Review Auto-Generat ed Referral 10/08/2021 11/07/2022 [address] [facility] for referral (narrative)* Diagnostic Procedure Only (Routine) - Closed Specialty Diagnoses / Procedures Referred By Burton barnes Referred To Contact XR IMAGING Diagnoses Acute pain of right shoulder Procedures XR SHOULDER GENERAL 3V OR MORE AP/TRUE AP/OTHER RIGHT RADEX SHOULDER COMPLETE MINIMUM 2 VIEWS America Luz MD [address] [place] [address] Xr Imaging Referral ID Status Reason Start Date Expiration Date V isits Requested Visits Authorized [id number] Closed Auto-Generate d Referral 06/03/2022 07/03/2023 1 1 * Consult, Test, Treat (Routine) - Authorized Specialty Diagnoses / Procedures Referred By Contac t Referred To Contact Orthopedics Diagnoses Acute pain of right shoulder Procedures CONSULT TO ORTHOPAEDICS OFFICE/OUTPATIENT [facility] 60-74 MINUTES America Luz MD [address] [place] [address] Referral ID Status Reason Start Date Expiration Date Visits Requested Visits Authorized [id number] Authorized PCP Requested Referral 06/03/2022 06/03/2023 1 1 [facility] Diagnostic Procedure Only (Urgent) - Closed Specialty Diagnoses / Procedures Referred By Contac t Referred To Contact XR IMAGING Diagnoses Pain in lower jaw Procedures XR MANDIBLE 4V PA/DEX/BOTH OBL RADIOLOG EXAM MANDIBLE COMPL MINIMUM 4 VIEWS [facility] [address] [place] [address] Xr Imaging Referral ID Status Reason Start Date Expiration Date V isits Requested Visits Authorized [id number] Closed Auto-Generate d Referral 08/18/2022 09/17/2023 1 1 [facility] Advance Directives No Advanced Directives Records FoundDocuments on File Type Date Recorded Patient It Teacher Expl anation Advance Directive(s) Reason for Referral Specialty Diagnoses / Procedures Referred By Contac t Referred To Contact [facility] Diagnoses Acute pain of right shoulder Shoulder impingement M25.511 (ICD-10-CM) - Acute pain of right shoulder M25.819 (ICD-10-CM) - Shoulder impingement Procedures CONSULT TO PHYSICAL THERAPY PHYSICAL THERAPY EVALUATION HIGH COMPLEX 45 MINS Hai Reeder MD [address] [place] [address] [facility] [place] [address] [place] [address] Referral ID Status Reason Start Date Expiration Date Visits Requested Visits Authorized [id number] Authorized Auto-Generat ed Referral 04/12/2022 04/11/2023 1 [...] or prosecute any alcohol or drug abuse patient.[facility] the event this information is protected by the Federal Confidentiality of Alcohol and Drug Abuse Patient Records regulations: The Federal rules restrict any use of the information to criminally investigate or prosecute any alcohol or drug abuse patient.[facility] the event this information is protected by the Federal Confidentiality of Alcohol and Drug Abuse Patient Records regulations: The Federal rules restrict any use of the information to criminally investigate or prosecute any alcohol or drug abuse patient.[facility] the event this information is protected by the Federal Confidentiality of Alcohol and Drug Abuse Patient Records regulations: The Federal rules restrict any use of the information to criminally investigate or prosecute any alcohol or drug abuse patient.[facility] Center[facility] the event this information is protected by the Federal Confidentiality of Alcohol and Drug Abuse Patient Records regulations: The Federal rules restrict any use of the information to criminally investigate or prosecute any alcohol or drug abuse patient.[facility] the event this information is protected by the Federal Confidentiality of Alcohol and Drug Abuse Patient Records regulations: The Federal rules restrict any use of the information to criminally investigate or prosecute any alcohol or drug abuse patient.[facility] the event this information is protected by the Federal Confidentiality of Alcohol and Drug Abuse Patient Records regulations: The Federal rules restrict any use of the information to criminally investigate or prosecute any alcohol or drug abuse patient.[facility] Center[facility] the event this information is protected by the Federal Confidentiality of Alcohol and Drug Abuse Patient Records regulations: The Federal rules restrict any use of the information to criminally investigate or prosecute any alcohol or drug abuse patient.[facility] Center[facility] the event this information is protected by the Federal Confidentiality of Alcohol and Drug Abuse Patient Records regulations: The Federal rules restrict any use of the information to criminally investigate or prosecute any alcohol or drug abuse patient.[facility] Center[facility] the event this information is protected by the Federal Confidentiality of Alcohol and Drug Abuse Patient Records regulations: The Federal rules restrict any use of the information to criminally investigate or prosecute any alcohol or drug abuse patient.[facility] Center[facility] the event this information is protected by the Federal Confidentiality of Alcohol and Drug Abuse Patient Records regulations: The Federal rules restrict any use of the information to criminally investigate or prosecute any alcohol or drug abuse patient.[facility] Center[facility] the event this information is protected by the Federal Confidentiality of Alcohol and Drug Abuse Patient Records regulations: The Federal rules restrict any use of the information to criminally investigate or prosecute any alcohol or drug abuse patient.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 [facility] [employer] [facility]. provides no warranty or guarantee of the accuracy or completeness of information in this document.
--- NOTE | 2023-05-28 16:48 | HP.PCM.HOS_ITS ---
HPI - General General Date of Admission: 05/28/23 Date of Service: 05/28/23 Chief Complaint: Abdominal pain, nausea, vomiting HPI Miley SMITH, is a 42 F who presented to the emergency department at [facility] on 05/28/2023 with abdominal pain, nausea, and vomiting that started at 6 AM this morning. Patient has history of multiple abdominal surgeries including appendectomy, hysterectomy, ovarian infection, and has had 2 small bowel obstructions. She had 1 that was surgically managed in [place] in 2019 and 1 that was medically managed here in November 2021. She does not smoke anymore or drink alcohol regularly. She is not on any blood thinners and denies taking any medications regularly. She states she stopped many of her medications a couple years ago. Vital signs show a temperature of 98, blood pressure 126/88, heart rate 75, respiratory rate 16 oxygen saturations are 99% on room air. Her CBC is unremarkable. Her chemistry panel is over only unremarkable. Her lactic acid is normal at 0.4. Her liver functions normal. Her lipase is 29. A CT of her abdomen pelvis was performed and showed dilated distal ileal loops with a transition point at or near the anastomosis suggesting small bowel obstruction. The distalmost ileal loops are decompressed. Case was discussed with general surgery by the emergency department and they recommended NG tube placement and conservative manage to start. She will see her on admission. Patient will be admitted as a full admit to the medical floor. [facility] Medical History Bipolar disorder Bowel obstruction Cardiac arrest due to respiratory disorder Chronic pain Former smoker Former tobacco use History of borderline diabetes mellitus History of multiple abdominal surgeries History of small bowel obstruction HLD (hyperlipidemia) Iron deficiency anemia Migraines Obesity Rheumatoid arthritis SBO (small bowel obstruction) Sleep apnea Home Medications acetaminophen 500 mg capsule 500 mg PO Q6H PRN pain 05/28/23 [History Last Taken 05/27/23] Allergy/AdvReac Type Severity Reaction Status Date / Time hydromorphone HCl Allergy Severe Anaphylaxis Verified 05/28/23 14:18 [From Dilaudid] aspirin [From Percodan] Allergy Intermediate Swelling Verified 05/28/23 14:18 oxycodone terephthalate Allergy Intermediate Swelling Verified 05/28/23 14:18 [From Percodan] amoxicillin Allergy Hives Verified 05/28/23 14:18 ampicillin Allergy Swelling Verified 05/28/23 14:18 azithromycin Allergy Other Verified 05/28/23 14:18 erythromycin base Allergy Hives Verified 05/28/23 14:18 fentanyl Allergy Anaphylaxis Verified 05/28/23 14:18 orphenadrine [From Norflex] Allergy Anaphylaxis Verified 05/28/23 14:18 oxycodone HCl [From Percocet] Allergy Anaphylaxis Verified 05/28/23 14:18 propoxyphene napsylate Allergy Other Verified 05/28/23 14:18 [From Darvocet-N] Sulfa (Sulfonamide Allergy Other Verified 05/28/23 14:18 Antibiotics) tramadol Allergy Hives Verified 05/28/23 14:18 Family History Father Cancer Hx Leukemia. Diabetes CVA (cerebral vascular accident) Mother Cancer Surgical History H/O: hysterectomy History of appendectomy History of bowel resection History of cholecystectomy S/P cholecystectomy S/P exploratory laparotomy Social History household members: family Smoking Status: Former smoker alcohol intake: never substance use type: does not use ROS Constitutional Constitutional: Reports anorexia; Denies change in weight, chills, fatigue, fever(s), malaise, night sweats, weakness or other Eyes Eyes: Denies blurry vision, change in eye color, change in vision, discharge from eye(s), double vision, erythema, eye pain, loss of vision or other ENT HEENT: Denies abnormal hearing, dysphagia, ear pain, epistaxis, headache(s), hearing loss, nasal congestion, nasal discharge, post nasal drip, sinus pressure, sore throat or other Cardiovascular Cardiovascular: Denies chest pain, claudication, dyspnea on exertion, edema, lightheadedness, orthopnea, palpitations, paroxysmal nocturnal dyspnea, rapid heart rate, syncope or other Respiratory/Chest Respiratory/Chest: Denies cough, dyspnea, excessive phlegm production, hemoptysis, productive cough, shortness of breath at rest, shortness of breath with exertion, wheezing or other Gastrointestinal Gastrointestinal: Reports abdominal pain, diarrhea, nausea and vomiting; Denies coffee ground emesis, constipation, dyspepsia, hematemesis, hematochezia, loose stools, melena or other Genitourinary Genitourinary: Denies burning urination, difficulty urinating, dysuria, hematuria, nocturia, urinary frequency, urinary hesitancy, urinary incontinence, urinary urgency or other Musculoskeletal Musculoskeletal: Denies arthralgias, back pain, joint pain, joint stiffness, joint swelling, myalgias, neck pain or other Neurologic Neurologic: Denies abnormal gait, abnormal speech, confusion, disequilibrium, dizziness, focal weakness, headache(s), numbness, paresthesias, seizure-like activity, seizures, syncope, tingling, tremor(s) or other Psychiatric Psychiatric: Reports anxiety and depression; Denies homicidal ideation, suicidal ideation or other Endocrine Endocrinology: Denies change in body appearance, cold intolerance, excessive sweating, heat intolerance, polydipsia, polyuria or other Hematologic/Lymphatic Hematologic/Lymphatic: Denies anemia, easy bleeding, easy bruising, lymphadenopathy or other Allergic/Immunologic Allergic/Immunologic: Denies rhinitis, hives, eczemia, asthma or other Vital Signs Vital Signs Vital Signs: 05/28/23 14:16 Temperature 98 F Temperature Source Temporal Pulse Rate 75 Respiratory Rate 16 Blood Pressure 126/88 H Blood Pressure Mean 100 Pulse Ox 99 Oxygen Delivery Method Room Air Weight Weight: 94.829 kg Body Mass Index (BMI) 37.0 Physical Exam Const alert, oriented x3 and well nourished; Negative for no apparent distress, average body habitus or healthy appearing Constitutional Narrative: Obese, middle-aged, white female, sitting up in bed, intermittent abdominal pain which she puts pressure on bilateral lower quadrants, does not appear toxic but does appear she is not feeling well General Appearance: cooperative HEENT normocephalic, head/scalp atraumatic and moist oral mucous membranes HEENT Narrative: Mallampati is 3-4, no thrush, suboptimal dental care Eyes PERRL, EOMs intact bilaterally and conjunctivae normal Eyes Narrative: No scleral icterus Neck no lymphadenopathy and supple Neck Narrative: Trachea midline, no thyroid enlargement, old cric scar noted Resp normal respiratory effort, no retractions, no use of accessory muscles and clear to auscultation bilaterally Auscultation: Negative for rales, rhonchi or wheezes Cardio regular rate, regular rhythm, S1 normal heart sound, S2 normal heart sound, no murmurs, no rub, no gallops and no clicks GI soft to palpation GI Narrative: Diffuse tenderness, bowel sounds are hypoactive, mild distention Extremity no clubbing, cyanosis or edema Extremity Narrative: Pedal pulses are 2+ Skin no rashes or lesions noted, no wounds, skin turgor normal, no jaundice, no petechiae and no mottling Neuro oriented x3, moves all extremities and no focal motor deficits Speech: speech normal Psych Psych Narrative: Affect is slightly strange, eye contact is good however patient interacts ap propriately Results Lab / Micro Data 05/28/23 15:10 05/28/23 15:10 Labs: Laboratory Results - last 24 hr 05/28/23 15:10: WBC 6.1, RBC 4.61, Hgb 12.8, Hct 41.0, MCV 88.9, MCH 27.8, MCHC 31.2 L, RDW Std Deviation 45.7 H, RDW Coeff of Yovana 14.3, Plt Count 198, MPV 9.8, Immature Gran % (Auto) 0.300, Neut % (Auto) 58.0, Lymph % (Auto) 32.1, Gillespie % (Auto) 6.9, Eos % (Auto) 2.0, Baso % (Auto) 0.7, Absolute Neuts (auto) 3.6, Absolute Lymphs (auto) 1.96, Nucleated RBC % 0, Sodium 145, Potassium 3.9, Chloride 112 H, Carbon Dioxide 30.0, Anion Gap 3 L, BUN 11, Creatinine 0.94, Estim Creat Clear Calc 84.51, Est GFR (MDRD) Af Amer 84, Est GFR (MDRD) Non-Af 69, BUN/Creatinine Ratio 11.8, Glucose 96, Lactic Acid 0.4, Calcium 9.3, Total Bilirubin 0.40, AST 20, ALT 29, Alkaline Phosphatase 96, Total Protein 6.8, Albumin 3.4, Globulin 3.4, Albumin/Globulin Ratio 1.0, Lipase 29 Imaging Radiology Impression Abdomen/Pelvis CT 05/28/23 14:34 IMPRESSION: Dilated distal ileal loops with a transitional point at or near an anastomosis suggesting small bowel obstruction. The distalmost ileal loops are decompressed. Electronically Signed: Randall Brock DO at 16:26 EST Reading Location ID and State: [id number] / [place] Tel [phone], Service support , Assessment & Plan Assessment/Plan (1) Complete small bowel obstruction: (2) Abdominal pain: (3) Nausea and vomiting: PLAN: Plan Small bowel obstruction -Patient has history of small bowel obstruction and did require surgery in [facility] at 1 point for this -Her last bowel obstruction resolved with medical treatment -N.p.o. except for meds and ice chips -LR at 125 cc/h -Antiemetics -Patient has marked allergies with anaphylaxis to opiates so will avoid -Toradol 15 mg every 6 hours as needed -NG to placement with low intermittent suction -Check TSH -General surgery consultation--> Dr. Nayak aware KATHERINE -Patient noncompliant with treatment -Monitor and treat with supplemental oxygen -Recommend outpatient follow-up Chronic diarrhea -Patient does report she has had 3 bouts of diarrhea today and is passing flatus despite having a bowel obstruction -We will check stool studies Hyperlipidemia -Patient is currently not on medications History of migraines -Patient takes no chronic medications Obesity -BMI is 37 -Recommend weight loss -Complicates treatment, prognosis, outcomes History of bipolar -Patient is not on any chronic medications -Recommended patient follow-up History of tobacco abuse -Recommend ongoing cessation DVT prophylaxis -Subcu Lovenox daily CODE STATUS -Full code is verified on admission Charges/Coding Visit Charges Inpatient E&M: 08205 Init Hosp L2
--- NOTE | 2023-05-28 17:17 | ED.RN ---
hold on NG placement per dr ratliff.
[2023-05-28 17:19] VITALS: BP 133/77; PULSE 86; RESP 16; TEMP 37; O2SAT 97
--- NOTE | 2023-05-28 17:26 | CON.PCM.SX_ITS ---
Assessment & Plan Assessment/Plan (1) Abdominal pain, LLQ: (2) Small bowel anastomotic dilation: (3) Partial small bowel obstruction: PLAN: Plan Reviewed CT abdomen pelvis patient does have dilatation at her anastomosis site and initially left lower quadrant pain with nausea and vomiting. Patient stated she last had nausea and vomiting at 730 this morning her CAT scan does not show a large amount of fluid in her stomach or proximal small bowel we will hold off on NG as long as she has no more nausea and vomiting. While patient doing modified small bowel follow-through to see if this will help move small bowel contents through the dilated anastomotic area. Patient has had this previously and has improved with conservative management. Discussed with patient due to her multiple surgeries and component separation if she needed surgery would plan to transfer to a tertiary care facility previously she had surgery at [facility]. Patient was agreeable with plan. Kari Orona M.D. Pager: [phone] [facility] [address] [place] [address], [facility], [address] [place] [id number] Office: [phone] HPI Consult Data Date of Consult: 05/28/23 HPI Narrative HPI Narrative: PETE SMITH, is a 42 F who presents to ER due to abdominal pain starting last night-mainly LLQ, patient did have nausea and vomiting now her entire abdomen is painful. Patient states he last threw up about [address] abdomen pelvis showed dilation at the the previous anastomosis site. Pt has an extensive PSH: multiple surgeries for hernia with mesh, excision of mesh, component separation, internal hernia was the last surgery in 01/2020 at [facility]. Pt has had history of multiple CT scans which show a chronically dilated small bowel near anastomosis patient's previous admissions for similar picture have been able to be resolved conservatively.. Pt has had diarrhea at 2:00 today and been passing flatus the whole time. [facility] Medical History (Updated 05/28/23 @ 19:[address] Kari Orona MD) Asthma Bipolar disorder Bowel obstruction Cardiac arrest due to respiratory disorder Chronic pain Former smoker Former tobacco use History of borderline diabetes mellitus History of multiple abdominal surgeries History of small bowel obstruction HLD (hyperlipidemia) Iron deficiency anemia Migraines Obesity Rheumatoid arthritis SBO (small bowel obstruction) Sleep apnea Home Medications acetaminophen 500 mg capsule 500 mg PO Q6H PRN pain 05/28/23 [History Last Taken 05/27/23] Allergy/AdvReac Type Severity Reaction Status Date / Time hydromorphone HCl Allergy Severe Anaphylaxis Verified 05/28/23 14:18 [From Dilaudid] aspirin [From Percodan] Allergy Intermediate Swelling Verified 05/28/23 14:18 oxycodone terephthalate Allergy Intermediate Swelling Verified 05/28/23 14:18 [From Percodan] amoxicillin Allergy Hives Verified 05/28/23 14:18 ampicillin Allergy Swelling Verified 05/28/23 14:18 azithromycin Allergy Other Verified 05/28/23 14:18 erythromycin base Allergy Hives Verified 05/28/23 14:18 fentanyl Allergy Anaphylaxis Verified 05/28/23 14:18 orphenadrine [From Norflex] Allergy Anaphylaxis Verified 05/28/23 14:18 oxycodone HCl [From Percocet] Allergy Anaphylaxis Verified 05/28/23 14:18 propoxyphene napsylate Allergy Other Verified 05/28/23 14:18 [From Darvocet-N] Sulfa (Sulfonamide Allergy Other Verified 05/28/23 14:18 Antibiotics) tramadol Allergy Hives Verified 05/28/23 14:18 Family History Father Cancer Hx Leukemia. Diabetes CVA (cerebral vascular accident) Mother Cancer Surgical History H/O: hysterectomy History of appendectomy History of bowel resection History of cholecystectomy S/P cholecystectomy S/P exploratory laparotomy Social History household members: family Smoking Status: Former smoker alcohol intake: never substance use type: does not use ROS Constitutional Constitutional: Reports anorexia; Denies fever(s) Eyes Eyes: Denies blurry vision ENT HEENT: Denies dysphagia Cardiovascular Cardiovascular: Denies chest pain Respiratory/Chest Respiratory/Chest: Denies cough Gastrointestinal Gastrointestinal: Reports abdominal pain, bloating, diarrhea, nausea and vomiting; Denies constipation, hematemesis or hematochezia Genitourinary Genitourinary: Denies dysuria Musculoskeletal Musculoskeletal: Denies joint swelling Integumentary Integumentary: Denies jaundice Neurologic Neurologic: Denies focal weakness Psychiatric Psychiatric: Denies depression Endocrine Endocrinology: Denies palpitations Hematologic/Lymphatic Hematologic/Lymphatic: Denies easy bleeding Physical Exam Const alert, oriented x3 and no apparent distress HEENT normocephalic and head/scalp atraumatic Resp normal respiratory effort Cardio regular rate GI soft to palpation; Negative for non-distended GI Narrative: Well-healed midline incision Palpation: tender LLQ (Greatest in the left lower quadrant, diffusely tender, no peritoneal signs); Negative for guarding Extremity no clubbing, cyanosis or edema Neuro CN's II-XII intact bilaterally Psych mental status grossly normal Lab / Micro Data 05/28/23 15:10 05/28/23 15:10 Labs: Laboratory Results - last 24 hr 05/28/23 15:10: WBC 6.1, RBC 4.61, Hgb 12.8, Hct 41.0, MCV 88.9, MCH 27.8, MCHC 31.2 L, RDW Std Deviation 45.7 H, RDW Coeff of Yovana 14.3, Plt Count 198, MPV 9.8, Immature Gran % (Auto) 0.300, Neut % (Auto) 58.0, Lymph % (Auto) 32.1, [place] % (Auto) 6.9, Eos % (Auto) 2.0, Baso % (Auto) 0.7, Absolute Neuts (auto) 3.6, Absolute Lymphs (auto) 1.96, Nucleated RBC % 0, Sodium 145, Potassium 3.9, Chloride 112 H, Carbon Dioxide 30.0, Anion Gap 3 L, BUN 11, Creatinine 0.94, Estim Creat Clear Calc 84.51, Est GFR (MDRD) Af Amer 84, Est GFR (MDRD) Non-Af 69, BUN/Creatinine Ratio 11.8, Glucose 96, Lactic Acid 0.4, Calcium 9.3, Total Bilirubin 0.40, AST 20, ALT 29, Alkaline Phosphatase 96, Total Protein 6.8, Albumin 3.4, Globulin 3.4, Albumin/Globulin Ratio 1.0, Lipase 29 Imaging Radiology Impression Abdomen/Pelvis CT 05/28/23 14:34 IMPRESSION: Dilated distal ileal loops with a transitional point at or near an anastomosis suggesting small bowel obstruction. The distalmost ileal loops are decompressed. Electronically Signed: Randall Brock DO at 16:26 EST , Charges/Coding Visit Charges Inpatient E&M: 45241 Init Hosp L3
--- NOTE | 2023-05-28 17:38 | RAD_ITS ---
Study: SMALL BOWEL FOLLOW-THROUGH WITH BUS GREASER AND OVERHEAD IMAGES. REASON FOR EXAM: Female, 42 years old. sbo-gastrografin -- modified-gastrografin- KUB 1 hr/3hr/5hr in AM TECHNIQUE 6 overhead x-rays of the abdomen and pelvis were acquired including the scalp and the posterior oral contrast images. COMPARISON: CT of abdomen and pelvis dated May 30, 2023 FINDINGS: The stomach and small bowel and colon are well-opacified with oral contrast. There is no evidence of bowel obstruction. No extraluminal leakage of contrast is seen. Redemonstration of patulous bowel loop in the left mid abdomen which corresponds to the patulous bowel loops seen at the surgical anastomotic site on the CT performed on May 28, 2023. There is normal contrast opacification of the stomach and small bowel. No stricturing or cut off point is present. No hiatal hernia or gastroesophageal reflux was identified. The stomach distends well without mucosal fold thickening or mucosal ulceration. There is no intraluminal mass. The duodenal bulb is freely distensible without deformity or ulceration. The duodenal sweep is normal in position and caliber. Oral contrast is present throughout the colon, nearly down to the rectum on the last image. RAD/Small Bowel Series Only IMPRESSION: 1. No demonstrated bowel obstruction. Electronically Signed: Simon Cheatham MD at 15:22 EST ,
[2023-05-28 17:53] VITALS: BMI 34.0
--- OUTSIDE RECORDS SUMMARY | 2023-05-28 18:00 | XMS RPT_ITS | CCD ---
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 [employer] Name Role Phone America Luz MD Primary Care Provider [phone] AMERICA LUZ Referring Unavailable AMERICA LUZ Primary [...] INOPHEN] Drug Allergy 1 Shortness of Breath [facility] (13 sources) Amoxicillin; Translations: [AMOXICILLIN] Drug Allergy 2 Hives [facility] (13 sources) atorvastatin; Translations: [ATORVASTATIN] Drug Allergy 4 Vomiting [facility] (13 sources) Erythromycin; Translations: [ERYTHROMYCIN] Drug Allergy 0 Intolerance [facility] Work Phone: (13 sources) HYDROmorphone; Translations: [HYDROMORPHONE (BULK)] Drug Allergy 5 Anaphylaxis [facility] (13 sources) meloxicam; Translations: [MELOXICAM] Drug Allergy 4 Other: See Comments [facility] (13 sources) Naproxen; Translations: [NAPROXEN] Drug Allergy 1 Itching [facility] Work Phone: (13 sources) Pravastatin; Translations: [PRAVASTATIN] Drug Allergy 7 Itching [facility] Work Phone: (13 sources) risperiDONE; Translations: [RISPERIDONE] Drug Allergy 5 Swelling [facility] (13 sources) traMADol; Translations: [TRAMADOL] Drug Allergy 3 Intolerance [facility] Work Phone: (13 sources) Propoxyphene N-Acetaminophen; Translations: [PROPOXYPHENE N-ACETAMINOPHEN] Drug Allergy 2 Mental Status Change [facility] (13 sources) Sulfate Salt; Translations: [SULFATE SALT] Drug Allergy 6 Swelling [facility] (12 sources) zpack [Other] Propensity to adverse reactions 6 Mental Status Change [facility] (1 source) OTHER; Translations: [OTHER] Propensity to adverse reactions (disorder) 6 [facility] Repository Medications Current Medications Medication Drug Class(es) Dates Sig (Normalized) Sig (Original) polymyxin b 90620 unt/ml / trimethoprim 1 mg/ml ophthalmic solution [...] 98.1 [degF] Krislyn Aberegg PA Work Phone: [facility] 08-18-2022 10:57-0400 Diastolic blood pressure 76 mm[Hg] Krislyn Aberegg PA Work Phone: [facility] 08-18-2022 10:57-0400 Heart rate 97 /min Krislyn Aberegg PA Work Phone: [facility] 08-18-2022 10:57-0400 Respiratory rate 22 /min Krislyn Aberegg PA Work Phone: [facility] 08-18-2022 10:57-0400 SaO2% (BldA) [Mass fraction] 99 % Krislyn Aberegg PA Work Phone: [facility] 08-18-2022 10:57-0400 Systolic blood pressure 128 mm[Hg] Krislyn Aberegg PA Work Phone: [facility] 07-29-2022 14:41-0400 Diastolic blood pressure 60 mm[Hg] Khushboo Haagen B2B SALES PROFESSIONAL.BASIN TENDER Work Phone: [facility] 07-29-2022 14:41-0400 Heart rate 98 /min Khushboo Haagen B2B SALES PROFESSIONAL.BASIN TENDER Work Phone: [facility] 07-29-2022 14:41-0400 Respiratory rate 18 /min Khushboo Haagen B2B SALES PROFESSIONAL.BASIN TENDER Work Phone: [facility] 07-29-2022 14:41-0400 SaO2% (BldA) [Mass fraction] 96 % Khushboo Haagen B2B SALES PROFESSIONAL.BASIN TENDER Work Phone: [facility] 07-29-2022 14:41-0400 Systolic blood pressure 98 mm[Hg] Khushboo Haagen B2B SALES PROFESSIONAL.BASIN TENDER Work Phone: [facility] 06-03-2022 15:28-0500 Body weight 92.08 kg America Luz MD Work Phone: [facility] 06-03-2022 15:28-0500 Diastolic blood pressure 62 mm[Hg] America Luz MD Work Phone: [facility] 06-03-2022 15:28-0500 Heart rate 83 /min America Luz MD Work Phone: [facility] 06-03-2022 15:28-0500 SaO2% (BldA) [Mass fraction] 95 % America Luz MD Work Phone: [facility] 06-03-2022 15:28-0500 Systolic blood pressure 102 mm[Hg] America Luz MD Work Phone: [facility] 04-28-2022 18:39-0500 Body temperature 98.71 [degF] Sophy Denbow PA-C Work Phone: [facility] 04-28-2022 18:39-0500 Body weight 91.63 kg Sophy Denbow PA-C Work Phone: [facility] 04-28-2022 18:39-0500 Diastolic blood pressure 64 mm[Hg] Sophy Denbow PA-C Work Phone: [facility] 04-28-2022 18:39-0500 Heart rate 84 /min Sophy Denbow PA-C Work Phone: [facility] 04-28-2022 18:39-0500 Respiratory rate 16 /min Sophy Denbow PA-C Work Phone: [facility] 04-28-2022 18:39-0500 SaO2% (BldA) [Mass fraction] 96 % Sophy Denbow PA-C Work Phone: [facility] 04-28-2022 18:39-0500 Systolic blood pressure 102 mm[Hg] Sophy Denbow PA-C Work Phone: [facility] Encounters Encounter Date Encounter Type Care Provider Facility Start: 08-18-2022 End: 08-18-2022 ambulatory AMERICA LUZ Facility:[facility] Start: 08-18-2022 End: 08-18-2022 Patient encounter procedure Luis Alfredo KINGSLEY Work Phone: [facility] Procedures Date Procedure Procedure Detail Performing Clinician Start: 07-29-2022 COVID WITH FLUA+B, ROUTINE Khushboo Haagen B2B SALES PROFESSIONAL.BASIN TENDER Work Phone: Start: 07-29-2022 STREP A MOLECULAR (POC) Khushboo Zamarripaagen B2B SALES PROFESSIONAL.BASIN TENDER Work Phone: Start: 05-21-2016 Adult depression screening assessment America Luz MD Work Phone: Plan of Treatment Date Care Activity Detail Author Start: 04-24-2025 Urine microalbumin profile DTAP,TDAP,TD (2 - Td or Tdap) [facility] Start: 06-03-2022 End: 08-03-2022 CBC W Auto Differential panel - Blood CBC + DIFF Lab Routine Hyperlipidemia, unspecified hyperlipidemia type Expected: 06/03/2022, Expires: 08/03/2022 [facility] Work Phone: Immunizations Immunization Date Immunization Notes Care Provider Olive porras 03-12-2022 influenza, seasonal, injectable Khushboo Haagen B2B SALES PROFESSIONAL.BASIN TENDER Work Phone: [facility] 04-26-2020 influenza, injectabl e, quadrivalent, preservative free Khushboo Haagen B2B SALES PROFESSIONAL.BASIN TENDER Work Phone: [facility] 02-08-2018 influenza, seasonal, injectable, preservative free Khushboo Haagen B2B SALES PROFESSIONAL.BASIN TENDER Work Phone: [facility] 05-21-2016 influenza, injectabl e, quadrivalent, contains preservative America Luz MD Work Phone: [facility] 04-24-2015 tetanus toxoid, redu daniel diphtheria toxoid, and acellular pertussis vaccine, adsorbed Khushboo Haagen B2B SALES PROFESSIONAL.BASIN TENDER Work Phone: [facility] 02-22-2015 influenza, injectabl e, quadrivalent, contains preservative America Luz MD Work Phone: [facility] 01-17-2014 influenza, seasonal, injectable America Luz MD Work Phone: [facility] 01-17-2014 pneumococcal polysaccharide vaccine, 23 valent America Luz MD Work Phone: [facility] Payers Date Payer Category Payer Medicaid [id number] 2021 Medicaid [id number] 2021 Medicaid [id number] 2020 Medicaid [facility] MEDICAID [employer] MEDICAID [id number] 2020-Present [phone] [address] [place] [address] Medicaid [id number] Social History Date Type Detail Facility Start: 10-28-2020 End: 04-28-2022 Tobacco smoking status NHIS Ex-smoker [facility] End: 01-11-2020 History of tobacco use Current smoker [facility] End: 01-11-2020 History of tobacco use Cigarette Smoker [facility] Start: 10-28-2020 End: 04-28-2022 Cigarettes smoked current (pack per day) - Reported 0.25 [facility] Start: 10-28-2020 End: 04-28-2022 Tobacco use and exposure Smokeless tobacco non-user [facility] Start: 06-09-2021 End: 08-18-2022 Alcohol intake Current non-drinker of alcohol (finding) [facility] Start: 1980 Sex Assigned At Not on file [facility] Clinical Notes 02-16-2013 to 09-16-2022 TEETEE Tang - 08/18/2022 11:05 AM Ayaz Fragoso Ma - 07/30/2022 1:50 PM EDTTelephone Encounter - Kerry Fragoso Ma - 07/30/2022 10:36 AM EDTPatient Instructions Note Date & Type Note Facility 09-16-2022 Note Patient Outreach (IN TMMN) SARAHPETE ([id number]) 1980 F Date Time Provider Department 09/16/22 [...] for screening mammogram for breast cancer [Z12.31] Order(s):[facility] SCREENING [[id number]] Order #: [id number] FUTURE Prescriptions as of 09/21/2022 - Ewbdrcrliccshfj-Mfqzptllk-CC (BROMFED DM) 2-30-10 mg/5 mL syrup Take [...] Encounter Status:Closed by EPIC, PRODUSER on 09/21/22 [facility] 08-18-2022 Note HNO ID: [id number] Author: RT Jori(R) Service: Nuclear Medicine Author [...] RT Jori(R) August 18, 2022 11:28 AM [facility] 08-18-2022 Note HNO ID: [id number] Author: TEETEE Tang Service: ? Author Type: Physician Cutter Hand Type: Progress Notes Filed: 08/18/2022 12:07 PM Note Text: This note was created using [employer]. Subjective Pete Wright is a 41 year [...] BHARATH, small bowel resection Dr. Sumit Cutler [facility] will TOTAL ABDOMINAL HYSTERECT W/WO RMVL TUBE OVARY 09/2005 after vag delivery-hemorrhage, AT/WB ALLERGIES Amoxicillin, Darvocet A500 [Propoxyphene N-Acetaminophen], Dilaudid [Hydromorphone (Bulk)], Erythromycin, Lipitor [Atorvastatin], Meloxicam, Naproxen, Percocet [Oxycodone-Acetaminophen], Pravastatin, Risperidone, Sulfate Salt, Tramadol, and Zpack [Other] MEDICATIONS acetaminophen (TYLENOL) 325 mg tablet Take 650 mg by mouth every 6 hours as needed. Leohwsenyhhutce-Qwilvxdwu-WH (BROMFED DM) 2-30-10 mg/5 mL syrup Take [...] prompt ER evaluation. (more content not included)... [facility] 08-18-2022 History of Presen t illness Narrative This note was created using [employer]. Subjective Pete Wright is a 41 year [...] BHARATH, small bowel resection Dr. Sumit Cutler [facility] will TOTAL ABDOMINAL HYSTERECT W/WO RMVL TUBE OVARY 09/2005 after vag delivery-hemorrhage, AT/WB ALLERGIES Amoxicillin, Darvocet A500 [Propoxyphene N-Acetaminophen], Dilaudid [Hydromorphone (Bulk)], Erythromycin, Lipitor [Atorvastatin], Meloxicam, Naproxen, Percocet [Oxycodone-Acetaminophen], Pravastatin, Risperidone, Sulfate Salt, Tramadol, and Zpack [Other] MEDICATIONS acetaminophen (TYLENOL) 325 mg tablet Take 650 mg by mouth every 6 hours as needed. Bxioxdgqxdpponk-Ophwlzvxt-FJ (BROMFED DM) 2-30-10 mg/5 mL syrup Take [...] evaluation. TEETEE Tang documented in this encounter [facility] 07-30-2022 Note HNO ID: [id number] Author: Kerry Fragoso Ma Service: ? Author Type: ? Type: Progress Notes Filed: 07/30/2022 1:55 PM Note Text: POPULATION HEALTH NAVIGATION OUTREACH Action/FYI Pt recently seen 07/29/22, order placed 10/08/21 Patient Identified by Name and : YES, Outreach Outcome/Action Letter mailed Did you use a PCP flex slot to schedule this appointment? N/A Reason for Outreach Care Gap or Scheduling/Wellness visits Payer: Payor: [facility] MEDICAID / Plan: [facility] COMMUNITY PLAN MEDICAID [facility] / Product Type: Medicaid / Care Gap Reviewed:: Breast Cancer screening Reminder: Reminder note to check Health Maintenance for items below Health Maintenance items due: HEPATITIS B(1 of 3 - 3-dose series) Never done COVID-19 VACCINE(1) Never done HEPATITIS C SCREENING Never done MAMMOGRAM Never done DEPRESSION ASSESSMENT Never done Navigation Signature: Kerry Fragoso Ma July 30, 2022 1:50 PM [facility] 07-30-2022 Note Patient Outreach (FA MPWS) PETE WRIGHT ([id number]) 1980 F Date Time Provider Department 07/30/22 [...] Care Gap or Scheduling/Wellness visits Payer: Payor: [facility] MEDICAID / Plan: [facility] COMMUNITY PLAN MEDICAID [facility] / Product Type: Medicaid / [...] Cmt: Mammogram Prescriptions as of 07/30/2022 - Ufeqlfofpoqhbdy-Wchgldxra-TX (BROMFED DM) 2-30-10 mg/5 mL syrup Take [...] Status:Closed by KERRY FRAGOSO MA on 07/30/22 [facility] 07-30-2022 History of Presen t illness Narrative POPULATION HEALTH NAVIGATION OUTREACH Action/FYI Pt recently seen 07/29/22, order placed 10/08/21 Patient Identified by Name and : YES, Outreach Outcome/Action Letter mailed Did you use a PCP flex slot to schedule this appointment? N/A Reason for Outreach Care Gap or Scheduling/Wellness visits Payer: Payor: [facility] MEDICAID / Plan: [facility] COMMUNITY PLAN MEDICAID [facility] / Product Type: Medicaid / [...] 2022 1:50 PM documented in this encounter [facility] 07-30-2022 Miscellaneous Notes Patient was made aware of the results. Patient verbalizes understanding. Kerry Fragoso Ma ----- Message from Mesfin Ramos PA-C sent at 07/30/2022 10:13 AM EDT ----- Please let her know Covid and flu negative Thanks, Gamaliel Ramos PA-C documented in this encounter [facility] 07-30-2022 Miscellaneous Notes Patient calling asking for COVID test results. COVID WITH FLUA+B, ROUTINE Order: [id number] Status: Final result Visible to patient: No [...] B by RT PCR R Resulting Agency [facility] Went over results of COVID and Influenza A and B tests with understanding. documented in this encounter [facility] 07-29-2022 Note HNO ID: [id number] Author: Khushboo Cooper APRN.BASIN TENDER Service: ? Author Type: Nurse Practitioner Type: [...] BHARATH, small bowel resection Dr. Sumit Cutler [facility] will TOTAL ABDOMINAL HYSTERECT W/WO RMVL [...] ROUTINE - BROMPHENIRAMINE-PSE (more content not included)... [facility] 07-29-2022 Instructions Khushboo Cooper APRN.BROOKE - 07/29/2022 [...] please notify provider. documented in this encounter [facility] 07-29-2022 History of Presen t illness [...] CHOLECYSTECTOMY Cholecystectomy CONSULT TO COLO-RECTAL SURGERY 04/14/2008,04/16/2008 [facility] EXPLORATORY LAPAROTOMY CELIOTOMY W/WO BIOPSY SPX Laparotomy, exp. Adhesiolysis. Abdominal wall resection (mesh included), primary closure. OOPHORECTOMY PARTIAL/TOTAL UNI/BI just one left ovary and both tubes OOPHORECTOMY PARTIAL/TOTAL UNI/BI 2007 [facility] right ovary PAST SURGICAL HISTORY OF Bowel resection PAST SURGICAL HISTORY OF 01/25/2020 SBO: exp lap, BHARATH, small bowel resection Dr. Sumit Cutler [facility] will TOTAL ABDOMINAL HYSTERECT W/WO RMVL [...] with the plan. documented in this encounter [facility] 06-22-2022 Note HNO ID: [id number] Author: Hai Reeder MD Service: ? Author Type: Physician Type: Progress Notes Filed: 07/07/2022 4:54 PM Note Text: Hai Reeder MD Department of Orthopaedics Orthopaedics [address] [place] [address] Dept: [phone] Dept June 22, 2022 CHIEF COMPLAINT: New [...] seems to help. She was seen at [facility] ER for shoulder pain on 06/10/22 and was prescribed hydrocodone-acetaminophen which helps but she only takes it at night. Patient is R hand dominant and works at [employer] where she is constantly reaching, stocking, pushing [...] of degenerative changes in the acromioclavicular joint. Pressroom Supervisor: WILEY Transcribe Date/Time: Jun 05 2022 4:52P [...] CHOLECYSTECTOMY Cholecystectomy CONSULT TO COLO-RECTAL SURGERY 04/14/2008,04/16/2008 [facility] EXPLORATORY LAPAROTOMY CELIOTOMY W/WO BIOPSY SP (more content not included)... [facility] 06-22-2022 History of Presen t illness Narrative Hai Reeder MD Department of Orthopaedics Orthopaedics [address] [facility] [address] Dept: [phone] Dept June 22, 2022 CHIEF COMPLAINT: New [...] seems to help. She was seen at [facility] ER for shoulder pain on 06/10/22 and was prescribed hydrocodone-acetaminophen which helps but she only takes it at night. Patient is R hand dominant and works at [employer] where she is constantly reaching, stocking, pushing [...] of degenerative changes in the acromioclavicular joint. Pressroom Supervisor: [facility] Transcribe Date/Time: Jun 05 2022 [...] BHARATH, small bowel resection Dr. Sumit Cutler [facility] will TOTAL ABDOMINAL HYSTERECT W/WO RMVL [...] physician via US mail. America Luz [address] [facility] [address] Hai Reeder MD documented in this encounter [facility] 06-08-2022 Miscellaneous Notes Patient notified. Xray shows mild degenerative changes. See ortho as we already ordered documented in this encounter [facility] 06-03-2022 Note HNO ID: [id number] Author: RT Jori(R) Service: Nuclear Medicine Author [...] RT Jori(R) June 03, 2022 4:18 PM [facility] 06-03-2022 Note HNO ID: [id number] Author: America Luz MD Service: ? Author Type: Physician Type: Progress Notes Filed: 06/03/2022 3:48 PM Note Text: Patient presents with: Pain (Shoulder Pain): right HPI: Patient presents today for office visit for follow up. HOSPITAL/ER FOLLOW UP: Reason for visit: right shoulder pain Which facility: [facility] Date of visit: 06/02/22 Diagnosis: right shoulder tendiitis Treatment given: augie states that makes her too sleepy Current symptoms: did have some numbness Asking about light duty Working at [employer] Also asking about a splint Whole are [...] BHARATH, small bowel resection Dr. Sumit Cutler [facility] will TOTAL ABDOMINAL HYSTERECT W/WO RMVL TUBE [...] E78.5 (primary diagnosi (more content not included)... [facility] 06-03-2022 Miscellaneous Notes Addended by: AMERICA LUZ on: 06/03/2022 04:17 PM Modules accepted: Orders documented in this encounter [facility] 06-03-2022 History of Presen t illness Narrative Patient presents with: Pain (Shoulder Pain): right HPI: Patient presents today for office visit for follow up. HOSPITAL/ER FOLLOW UP: Reason for visit: right shoulder pain Which facility: [facility] Date of visit: 06/02/22 Diagnosis: right shoulder tendiitis Treatment given: norjoshua states that makes her too sleepy Current symptoms: did have some numbness Asking about light duty Working at [employer] Also asking about a splint Whole are [...] BHARATH, small bowel resection Dr. Sumit Cutler [facility] will TOTAL ABDOMINAL HYSTERECT W/WO RMVL [...] America Luz MD documented in this encounter [facility] 04-28-2022 Note HNO ID: [id number] Author: Sophy Hampton PA-C Service: ? Author Type: Physician Cutter Hand Type: Progress Notes Filed: 04/28/2022 6:56 PM [...] these issues and agrees with the plan. Spohy Hampton PA-C [facility] 04-28-2022 History of Presen t illness Narrative Images from the original note were not included. Subjective HPI HPI Peet Wright is a 41 year old female [...] Sophy Hampton PA-C documented in this encounter [facility] 03-19-2022 Miscellaneous Notes TRANSITION CARE MANAGEMENT (TCM) INITIAL CONTACT [employer] Outreach Provider Action/FYI: [facility] abdominal pain, small bowel obstruction Patient said she was given a medication that she reacted badly to had cardiac arrest she said I and they brought me back this has happened few times at [facility], she can not take certain medications and they still give them to her. Initial contact with patient post discharge, spoke to patient. Patient identified by name and . TRANSITION CARE MANAGEMENT INITIAL OUTREACH DOCUMENTATION: No flowsheet data found. SUMMARY: -Pt discharged from [facility] on 03/13/2022. -Admitted for: 03/09/2022 Do you [...] discharge instructions/AVS . Restate discharge instructions from [facility] verbally, copy/paste via [employer]hart, mail, or provide in person. Do you have all the necessary equipment and supplies at home? No, follow site specific process to secure durable medical equipment and/or supplies for the patient, handoff to RN/MEDICAL AIDE, or LIP Medical records from recent hospitalization: Care Everywhere Attempted to reach patient. No answer, voicemail not set up. Kerry Fragoso Ma Please reach out for KWASI Duran: SBO and respiratory arrest , d/c 03/12/2022 and no appointment. Thanks, Gamaliel Ramos PA-C documented in this encounter [facility] 12-05-2021 Miscellaneous Notes Patient calling she was sent home from work Wednesday and did home COVID test was positive. Patient said she had sore throat, nothing else. Now she has a runny nose. Asking what can she take for her symptoms. [facility], patient thought she could go back to work already. Explained about the CDC guidelines to her. documented in this encounter [facility] 10-08-2021 Note Patient Outreach (IN TMMN) PETE WRIGHT ([id number]) 1980 F Date Time Provider Department 10/08/21 [...] for screening mammogram for breast cancer [Z12.31] Order(s):[facility] SCREENING [[id number]] Order #: [id number] FUTURE Prescriptions as of 10/13/2021 - acetaminophen [...] Encounter Status:Closed by EPIC, PRODUSER on 10/13/21 [facility] documented as of this encounter (statuses as of 10/13/2021) [facility] History of Past illness Narrative* Problem Noted Date Resolved Date Closed nondisplaced fracture of fifth left metat arsal bone 02/16/2013 09/15/2013 Disorders of bursae and tend ons in shoulder region, unspecified 01/23/2008 03/13/2010 Other specified complication, antepartum(646.83) 09/15/2005 03/13/2010 documented as of this encounter (statuses as of 01/02/2022) [facility] History of Past illness Narrative* Problem Noted Date Resolved Date Closed nondisplaced fracture of fifth left metat arsal bone 02/16/2013 09/15/2013 Disorders of bursae and tend ons in shoulder region, unspecified 01/23/2008 03/13/2010 Other specified complication, antepartum(646.83) 09/15/2005 03/13/2010 documented as of this encounter (statuses as of 04/29/2022) [facility] History of Past illness Narrative* Problem Noted Date Resolved Date Closed nondisplaced fracture of fifth left metat arsal bone 02/16/2013 09/15/2013 Disorders of bursae and tend ons in shoulder region, unspecified 01/23/2008 03/13/2010 Other specified complication, antepartum(646.83) 09/15/2005 03/13/2010 documented as of this encounter (statuses as of 04/29/2022) [place] [address]-07-2013 History of Past illness Narrative* Problem Noted Date Resolved Date Closed nondisplaced fracture of fifth left metat arsal bone 02/16/2013 09/15/2013 Disorders of bursae and tend ons in shoulder region, unspecified 01/23/2008 03/13/2010 Other specified complication, antepartum(646.83) 09/15/2005 03/13/2010 documented as of this encounter (statuses as of 06/03/2022) [place] [address]-07-2013 History of Past illness Narrative* Problem Noted Date Resolved Date Closed nondisplaced fracture of fifth left metat arsal bone 02/16/2013 09/15/2013 Disorders of bursae and tend ons in shoulder region, unspecified 01/23/2008 03/13/2010 Other specified complication, antepartum(646.83) 09/15/2005 03/13/2010 documented as of this encounter (statuses as of 06/08/2022) [facility] History of Past illness Narrative* Problem Noted Date Resolved Date Closed nondisplaced fracture of fifth left metat arsal bone 02/16/2013 09/15/2013 Disorders of bursae and tend ons in shoulder region, unspecified 01/23/2008 03/13/2010 Other specified complication, antepartum(646.83) 09/15/2005 03/13/2010 documented as of this encounter (statuses as of 07/07/2022) [facility]11-07-2013 History of Past illness Narrative* Problem Noted Date Resolved Date Closed nondisplaced fracture of fifth left metat arsal bone 02/16/2013 09/15/2013 Disorders of bursae and tend ons in shoulder region, unspecified 01/23/2008 03/13/2010 Other specified complication, antepartum(646.83) 09/15/2005 03/13/2010 documented as of this encounter (statuses as of 07/30/2022) [facility] History of Past illness Narrative* Problem Noted Date Resolved Date Closed nondisplaced fracture of fifth left metat arsal bone 02/16/2013 09/15/2013 Disorders of bursae and tend ons in shoulder region, unspecified 01/23/2008 03/13/2010 Other specified complication, antepartum(646.83) 09/15/2005 03/13/2010 documented as of this encounter (statuses as of 07/30/2022) [address]07-2013 History of Past illness Narrative* Problem Noted Date Resolved Date Closed nondisplaced fracture of fifth left metat arsal bone 02/16/2013 09/15/2013 Disorders of bursae and tend ons in shoulder region, unspecified 01/23/2008 03/13/2010 Other specified complication, antepartum(646.83) 09/15/2005 03/13/2010 documented as of this encounter (statuses as of 07/31/2022) [facility] History of Past illness Narrative* Problem Noted Date Resolved Date Closed nondisplaced fracture of fifth left metat arsal bone 02/16/2013 09/15/2013 Disorders of bursae and tend ons in shoulder region, unspecified 01/23/2008 03/13/2010 Other specified complication, antepartum(646.83) 09/15/2005 03/13/2010 documented as of this encounter (statuses as of 08/18/2022) [facility] note* Diagnosis Encounter for screening mammogram for breast cancer documented in this encounter [facility] note* Diagnosis Eye irritation- Primary Other ill-defined disorder of eye Blepharitis of both upper and lower eyelid of left eye, unspecified type documented in this encounter [facility] note* Diagnosis Hyperlipidemia, unspecified hyperlipidemia type- Primary Acute pain of right shoulder documented in this encounter [facility] note* Diagnosis Shoulder impingement- Primary Other affections of shoulder region, not elsewhere classified Acute pain of right shoulder documented in this encounter [facility] note* Diagnosis Viral upper respiratory tract infection- Primary Acute upper respiratory infections of unspecified site Sore throat Acute pharyngitis documented in this encounter [facility] note* Diagnosis Pain in lower jaw- Primary Jaw pain documented in this encounter [facility] for referral (narrative)* Diagnostic Procedure Only (Routine) - Pending Review Specialty Diagnoses / Procedures Referred By Burton barnes Referred To Contact BR IMAGING Diagnoses Encounter for screening mammogram for breast cancer Procedures MARCIAL SCREENING SCREENING MAMMOGRAPHY BI 2-VIEW BREAST INC CAD America Luz MD [address] [place] [address] [facility] [address] [place] [address] Referral ID Status Reason Start Date Expiration Date Visits Requested Visits Authorized [id number] Pending Review Auto-Generat ed Referral 10/08/2021 11/07/[address] [facility] for referral (narrative)* Diagnostic Procedure Only (Routine) - Closed Specialty Diagnoses / Procedures Referred By Burton barnes Referred To Contact XR IMAGING Diagnoses Acute pain of right shoulder Procedures XR SHOULDER GENERAL 3V OR MORE AP/TRUE AP/OTHER RIGHT RADEX SHOULDER COMPLETE MINIMUM 2 VIEWS America Luz MD [address] [place] [address] Xr Imaging Referral ID Status Reason Start Date Expiration Date V isits Requested Visits Authorized [id number] Closed Auto-Generate d Referral 06/03/2022 07/03/2023 1 1 * Consult, Test, Treat (Routine) - Authorized Specialty Diagnoses / Procedures Referred By Contac t Referred To Contact Orthopedics Diagnoses Acute pain of right shoulder Procedures CONSULT TO ORTHOPAEDICS OFFICE/OUTPATIENT [facility] 60-74 MINUTES America Luz MD [address] [place] [address] Referral ID Status Reason Start Date Expiration Date Visits Requested Visits Authorized [id number] Authorized PCP Requested Referral 06/03/2022 06/03/2023 1 1 [facility] Diagnostic Procedure Only (Urgent) - Closed Specialty Diagnoses / Procedures Referred By Contac t Referred To Contact XR IMAGING Diagnoses Pain in lower jaw Procedures XR MANDIBLE 4V PA/DEX/BOTH OBL RADIOLOG EXAM MANDIBLE COMPL MINIMUM 4 VIEWS [facility] [address] [place] [address] Xr Imaging Referral ID Status Reason Start Date Expiration Date V isits Requested Visits Authorized [id number] Closed Auto-Generate d Referral 08/18/2022 09/17/2023 1 1 [facility] Advance Directives No Advanced Directives Records FoundDocuments on File Type Date Recorded 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 Advance Directive(s) Reason for Referral Specialty Diagnoses / Procedures Referred By Contac t Referred To Contact [facility] Diagnoses Acute pain of right shoulder Shoulder impingement M25.511 (ICD-10-CM) - Acute pain of right shoulder M25.819 (ICD-10-CM) - Shoulder impingement Procedures CONSULT TO PHYSICAL THERAPY PHYSICAL THERAPY EVALUATION HIGH COMPLEX 45 MINS Hai Reeder MD [address] [place] [address] [facility] [address] [place] [address] Referral ID Status Reason Start Date Expiration Date Visits Requested Visits Authorized [id number] Authorized Auto-Generat ed Referral 04/12/2022 04/11/2023 1 [...] or prosecute any alcohol or drug abuse patient.[facility] the event this information is protected by the Federal Confidentiality of Alcohol and Drug Abuse Patient Records regulations: The Federal rules restrict any use of the information to criminally investigate or prosecute any alcohol or drug abuse patient.[facility] the event this information is protected by the Federal Confidentiality of Alcohol and Drug Abuse Patient Records regulations: The Federal rules restrict any use of the information to criminally investigate or prosecute any alcohol or drug abuse patient.[facility] the event this information is protected by the Federal Confidentiality of Alcohol and Drug Abuse Patient Records regulations: The Federal rules restrict any use of the information to criminally investigate or prosecute any alcohol or drug abuse patient.[facility] the event this information is protected by the Federal Confidentiality of Alcohol and Drug Abuse Patient Records regulations: The Federal rules restrict any use of the information to criminally investigate or prosecute any alcohol or drug abuse patient.[facility] the event this information is protected by the Federal Confidentiality of Alcohol and Drug Abuse Patient Records regulations: The Federal rules restrict any use of the information to criminally investigate or prosecute any alcohol or drug abuse patient.[facility] the event this information is protected by the Federal Confidentiality of Alcohol and Drug Abuse Patient Records regulations: The Federal rules restrict any use of the information to criminally investigate or prosecute any alcohol or drug abuse patient.[facility] the event this information is protected by the Federal Confidentiality of Alcohol and Drug Abuse Patient Records regulations: The Federal rules restrict any use of the information to criminally investigate or prosecute any alcohol or drug abuse patient.[facility] the event this information is protected by the Federal Confidentiality of Alcohol and Drug Abuse Patient Records regulations: The Federal rules restrict any use of the information to criminally investigate or prosecute any alcohol or drug abuse patient.[facility] the event this information is protected by the Federal Confidentiality of Alcohol and Drug Abuse Patient Records regulations: The Federal rules restrict any use of the information to criminally investigate or prosecute any alcohol or drug abuse patient.[facility] the event this information is protected by the Federal Confidentiality of Alcohol and Drug Abuse Patient Records regulations: The Federal rules restrict any use of the information to criminally investigate or prosecute any alcohol or drug abuse patient.[facility] the event this information is protected by the Federal Confidentiality of Alcohol and Drug Abuse Patient Records regulations: The Federal rules restrict any use of the information to criminally investigate or prosecute any alcohol or drug abuse patient.[facility] Care Teams (unrecognized sec tion and content) [employer] Relationship Specialty Start Date End Date America Luz MD [address] [place] [address] PCP - General Family Medicine 07/05/17 [employer] Relationship Specialty Start Date End Date America Luz MD [facility] [place] [address] PCP - General Family Medicine 07/05/17 [employer] Relationship Specialty Start Date End Date America Luz MD [facility] [place] [address] PCP - General Family Medicine 07/05/17 [employer] Relationship Specialty Start Date End Date America Luz MD [facility] [place] [address] PCP - General Family Medicine 07/05/17 [employer] Relationship Specialty Start Date End Date America Luz MD [address] [place] [address], [place] [address] PCP - General Family Medicine 07/05/17 [employer] Relationship Specialty Start Date End Date America Luz MD [address] [place], [place] [address] PCP - General Family Medicine 07/05/17 [employer] Relationship Specialty Start Date End Date America Luz MD [address] [place], [place] [id number] PCP - General Family Medicine 07/05/17 [employer] Relationship Specialty Start Date End Date America Luz MD [address] [place], [place] [id number] PCP - General Family Medicine 07/05/17 [employer] Relationship Specialty Start Date End Date America Luz MD [address] [place] [address] PCP - General Family Medicine [...] MDM 60-74 MINUTES America Luz MD [address] [place] [address] Referral ID Status Reason Start Date Expiration Date V isits Requested Visits Authorized [id number] Closed PCP Requested Referral 06/03/2022 06/03/2023 1 [...] BE BASED ON THE PRIMARY CLINICAL RECORDS. [facility] [employer] [facility]. provides no warranty or guarantee of the accuracy or completeness of information in this document.
[2023-05-28 18:05] VITALS: BP 106/70; PULSE 64; RESP 18; TEMP 37.1; O2SAT 94
[2023-05-28] MEDS: Lactated Ringers 1,000 ML 125 ML IV ×2 (18:36→23:22)
[2023-05-28] MEDS: 0.9% Saline Lock 10 ML Syringe IV (18:36)
[2023-05-28 20:46] VITALS: BP 107/70; PULSE 60; RESP 18; TEMP 36.2; O2SAT 94
[2023-05-28 23:23] VITALS: BP 106/57; PULSE 53; RESP 18; TEMP 36.1; O2SAT 94
[2023-05-29] MEDS: Ketorolac 15 MG/ML Vial IV ×2 (05:32→11:52)
[2023-05-29] MEDS: Lactated Ringers 1,000 ML 125 ML IV ×2 (05:34→13:10)
[2023-05-29 05:37] VITALS: BP 93/59; PULSE 52; RESP 18; TEMP 36.2; O2SAT 94
[2023-05-29 06:00] VITALS: BMI 37.3
[2023-05-29 06:11] LABS: Absolute Lymphocyte Count 1.92 X10^3/uL (0.83-4.51); Absolute Neutrophil Count 2.7 X10^3/uL (2.0-7.7); Basophil# 0.04 X10^3/uL; Basophil% 0.8 % (0-1); Eosinophil# 0.15 X10^3/uL; Eosinophils% 2.9 % (0-5); Hematocrit 35.5 % (37-47); Hemoglobin 10.9 g/dL (12.0-15.0); Lymphocyte # 1.92 X10^3/ul (0.83-4.51); Lymphocyte % 36.6 % (19-41); Mean Corp Hgb Conc 30.7 g/dL (32-36); Mean Corpuscular Hgb 27.5 pg (27.0-32.0); Mean Corpuscular Volume 89.6 fL (81-99); Monocyte# 0.39 X10^3/uL; Monocyte% 7.4 % (0-10); NRBC Flagged by Analyzer 0 % (0-5); Neutrophil # 2.72 X10^3/uL (2.7-7.7); Neutrophil % 51.9 % (47-70); Platelet Count 187 K/mm3 (150-450); RBC Distribution Width CV 14.2 % (11.6-14.6); RBC Distribution Width SD 46.5 fl (35.1-43.9); Red Blood Count 3.96 M/mm3 (4.2-5.4); White Blood Count 5.2 K/mm3 (4.4-11.0)
[2023-05-29 07:04] LABS: AST(SGOT) 18 U/L (15-37); Alanine Aminotransfer ALT/SGPT 27 U/L (13-56); Albumin, Serum 2.9 g/dL (3.2-5.0); Alkaline Phosphatase 78 U/L (45-117); Anion Gap 1 (5-15); BUN 10 mg/dL (7-18); BUN/Creat Ratio 12.5 RATIO (10-20); Calcium,Total 8.1 mg/dL (8.5-10.1); Chloride 115 mmol/L (98-107); EST Glomerular Filtration Rate 83 mL/min (>60); Est Glom Filt Rate - Afr Amer 100 mL/min (>60); Estimated Creatinine Clearance 103.43 ml/min; Globulin 2.9 g/dL (2.2-4.2); Glucose 93 mg/dL (74-106); Magnesium 2.3 mg/dL (1.6-2.6); Phosphorus 2.7 mg/dL (2.5-4.9); Potassium 3.8 mmol/L (3.5-5.1); Protein, Total 5.8 g/dL (6.4-8.2); Sodium Level 143 mmol/L (136-145); Thyroid Stim Hormone (TSH) 2.89 uIU/mL (0.358-3.74)
--- NOTE | 2023-05-29 07:53 | PCM.PN.SRG ---
Subjective Subjective KUB shows contrast in the colon after 1 hour. Patient had multiple bowel movements. Patient states her abdominal pain is improved but still sore from vomiting. Objective Data Objective Data Vital Signs: Vital Signs Temp Pulse Resp BP Pulse Ox O2 Del Method 97.1 F L 52 L 18 93/59 L 94 Room Air 05/29/23 05:37 05/29/23 05:37 05/29/23 05:37 05/29/23 05:37 05/29/23 05:37 05/29/23 05:37 Oxygen Delivery Method Room Air Weight: 217 lb 6.012 oz Body Mass Index (BMI) 37.3 Intake & Output: Intake and Output for Last 24 Hours 05/27/23 05/28/23 05/29/23 23:59 23:59 23:59 Intake Total 1595.83 / 1595.83 775 / 775 Balance 1595.83 / 1595.83 775 / 775 Lab / Micro Data 05/29/23 05:17 05/29/23 05:17 Labs: Laboratory Results - last 24 hr 05/28/23 15:10: WBC 6.1, RBC 4.61, Hgb 12.8, Hct 41.0, MCV 88.9, MCH 27.8, MCHC 31.2 L, RDW Std Deviation 45.7 H, RDW Coeff of Yovana 14.3, Plt Count 198, MPV 9.8, Immature Gran % (Auto) 0.300, Neut % (Auto) 58.0, Lymph % (Auto) 32.1, [place] % (Auto) 6.9, Eos % (Auto) 2.0, Baso % (Auto) 0.7, Absolute Neuts (auto) 3.6, Absolute Lymphs (auto) 1.96, Nucleated RBC % 0, Sodium 145, Potassium 3.9, Chloride 112 H, Carbon Dioxide 30.0, Anion Gap 3 L, BUN 11, Creatinine 0.94, Estim Creat Clear Calc 84.51, Est GFR (MDRD) Af Amer 84, Est GFR (MDRD) Non-Af 69, BUN/Creatinine Ratio 11.8, Glucose 96, Lactic Acid 0.4, Calcium 9.3, Total Bilirubin 0.40, AST 20, ALT 29, Alkaline Phosphatase 96, Total Protein 6.8, Albumin 3.4, Globulin 3.4, Albumin/Globulin Ratio 1.0, Lipase 29 05/29/23 05:17: WBC 5.2, RBC 3.96 L, Hgb 10.9 L, Hct 35.5 L, MCV 89.6, MCH 27.5, MCHC 30.7 L, RDW Std Deviation 46.5 H, RDW Coeff of Yovana 14.2, Plt Count 187, MPV 10.0, Immature Gran % (Auto) 0.400, Neut % (Auto) 51.9, Lymph % (Auto) 36.6, [place] % (Auto) 7.4, Eos % (Auto) 2.9, Baso % (Auto) 0.8, Absolute Neuts (auto) 2.7, Absolute Lymphs (auto) 1.92, Nucleated RBC % 0, Sodium 143, Potassium 3.8, Chloride 115 H, Carbon Dioxide 27.0, Anion Gap 1 L, BUN 10, Creatinine 0.80, Estim Creat Clear Calc 103.43, Est GFR (MDRD) Af Amer 100, Est GFR (MDRD) Non-Af 83, BUN/Creatinine Ratio 12.5, Glucose 93, Calcium 8.1 L, Phosphorus 2.7, Magnesium 2.3, Total Bilirubin 0.80, AST 18, ALT 27, Alkaline Phosphatase 78, Total Protein 5.8 L, Albumin 2.9 L, Globulin 2.9, Albumin/Globulin Ratio 1.0, TSH 2.89 Micro: Microbiology 05/29/23 00:25 Stool Clostridioides difficile (PCR) - Final Radiography Diagnostic Testing: Radiology Impression Abdomen/Pelvis CT 05/28/23 14:34 IMPRESSION: Dilated distal ileal loops with a transitional point at or near an anastomosis suggesting small bowel obstruction. The distalmost ileal loops are decompressed. Electronically Signed: Randall Brock DO at 16:26 EST Reading Location ID and State: [facility] / [place] Tel [phone], Service support , Physical Exam Const oriented x3 and no apparent distress Resp normal respiratory effort Cardio regular rate GI soft to palpation Palpation: tender other (Mild diffuse-improved no peritoneal signs) Assessment & Plan Assessment/Plan (1) Abdominal pain, LLQ: (2) Small bowel anastomotic dilation: (3) Partial small bowel obstruction: PLAN: Plan contrast in colon in 1 hr--will start clears if jere PO ok for D/C Kari Orona M.D. Pager: [phone] [facility] [address] [place] [address], [facility], [address] [place] [address] Office: [phone] Charges/Coding Visit Charges Inpatient E&M: 25993 Subs Hosp L2
--- NOTE | 2023-05-29 08:09 | PN.HOSP_ITS ---
Reason for Visit Reason for Visit: Diagnoses Partial intestinal obstruction, unspecified as to cause (05/28/23) Complete intestinal obstruction, unspecified as to cause (05/28/23) Other postprocedural complications and disorders of digestive system (05/28/23) Left lower quadrant pain (05/28/23) Unspecified abdominal pain (05/28/23) Nausea with vomiting, unspecified (05/28/23) Subjective Subjective Abdomen feeling better but not great at this time. Objective Data Objective Data Vital Signs: Vital Signs Temp Pulse Resp BP Pulse Ox O2 Del Method 36.2 C L 52 L 18 93/59 L 94 Room Air 05/29/23 05:37 05/29/23 05:37 05/29/23 05:37 05/29/23 05:37 05/29/23 05:37 05/29/23 05:37 Oxygen Delivery Method Room Air Weight: 98.6 kg Body Mass Index (BMI) 37.3 Intake & Output: Intake and Output for Last 24 Hours 05/27/23 05/28/23 05/29/23 23:59 23:59 23:59 Intake Total 1595.83 / 1595.83 775 / 775 Balance 1595.83 / 1595.83 775 / 775 Lab / Micro Data 05/29/23 05:17 05/29/23 05:17 Labs: Laboratory Results - last 24 hr 05/28/23 15:10: WBC 6.1, RBC 4.61, Hgb 12.8, Hct 41.0, MCV 88.9, MCH 27.8, MCHC 31.2 L, RDW Std Deviation 45.7 H, RDW Coeff of Yovana 14.3, Plt Count 198, MPV 9.8, Immature Gran % (Auto) 0.300, Neut % (Auto) 58.0, Lymph % (Auto) 32.1, [place] % (Auto) 6.9, Eos % (Auto) 2.0, Baso % (Auto) 0.7, Absolute Neuts (auto) 3.6, Absolute Lymphs (auto) 1.96, Nucleated RBC % 0, Sodium 145, Potassium 3.9, Chloride 112 H, Carbon Dioxide 30.0, Anion Gap 3 L, BUN 11, Creatinine 0.94, Estim Creat Clear Calc 84.51, Est GFR (MDRD) Af Amer 84, Est GFR (MDRD) Non-Af 69, BUN/Creatinine Ratio 11.8, Glucose 96, Lactic Acid 0.4, Calcium 9.3, Total Bilirubin 0.40, AST 20, ALT 29, Alkaline Phosphatase 96, Total Protein 6.8, Albumin 3.4, Globulin 3.4, Albumin/Globulin Ratio 1.0, Lipase 29 05/29/23 05:17: WBC 5.2, RBC 3.96 L, Hgb 10.9 L, Hct 35.5 L, MCV 89.6, MCH 27.5, MCHC 30.7 L, RDW Std Deviation 46.5 H, RDW Coeff of Yovana 14.2, Plt Count 187, MPV 10.0, Immature Gran % (Auto) 0.400, Neut % (Auto) 51.9, Lymph % (Auto) 36.6, [place] % (Auto) 7.4, Eos % (Auto) 2.9, Baso % (Auto) 0.8, Absolute Neuts (auto) 2.7, Absolute Lymphs (auto) 1.92, Nucleated RBC % 0, Sodium 143, Potassium 3.8, Chloride 115 H, Carbon Dioxide 27.0, Anion Gap 1 L, BUN 10, Creatinine 0.80, Estim Creat Clear Calc 103.43, Est GFR (MDRD) Af Amer 100, Est GFR (MDRD) Non-Af 83, BUN/Creatinine Ratio 12.5, Glucose 93, Calcium 8.1 L, Phosphorus 2.7, Magnesium 2.3, Total Bilirubin 0.80, AST 18, ALT 27, Alkaline Phosphatase 78, Total Protein 5.8 L, Albumin 2.9 L, Globulin 2.9, Albumin/Globulin Ratio 1.0, TSH 2.89 Micro: Microbiology 05/29/23 00:25 Stool Clostridioides difficile (PCR) - Final Radiography Diagnostic Testing: Radiology Impression Abdomen/Pelvis CT 05/28/23 14:34 IMPRESSION: Dilated distal ileal loops with a transitional point at or near an anastomosis suggesting small bowel obstruction. The distalmost ileal loops are decompressed. Electronically Signed: Randall Brock DO at 16:26 EST Reading Location ID and State: [facility] / [place] Tel [phone], Service support , Physical Exam Const alert and no apparent distress HEENT head/scalp atraumatic and moist oral mucous membranes Resp normal respiratory effort, no retractions, no use of accessory muscles and clear to auscultation bilaterally Cardio regular rate, regular rhythm, S1 normal heart sound and S2 normal heart sound GI GI Narrative: Soft. Tender hypoactive bowel sounds. Assessment & Plan Assessment/Plan (1) Complete small bowel obstruction: (2) Abdominal pain: (3) Nausea and vomiting: PLAN: Plan Small bowel obstruction * Contrast passing into the colon. Tolerating clears. * Surgery on consult. * Discharge DVT prophylaxis -Subcu Lovenox daily CODE STATUS -Full code is verified on admission
[2023-05-29] MEDS: Enoxaparin 40 MG/0.4 ML Syringe SC (10:09)
[2023-05-29 10:11] VITALS: BP 97/60; PULSE 59; RESP 16; TEMP 36.1; O2SAT 94
--- NOTE | 2023-05-29 13:15 | CASEMGMT ---
LANE YANES DC Planning Assessment: Face to Face with patient for initial transition planning/care coordination assessment. LANE YANES introduced self and role at [facility], pt voices understanding. Pt alert, answering questions appropriately and agreeable to participating in assessment.? Care providers, pharmacy, and demographics verified. Admitting dx: SBO PCP: Richard Specialists: none Preferred Pharmacy: [facility] Insurance: [facility] Prescription Benefit: yes LNOK: sister Danyelle Living Arrangements: Pt states she lives with her sister Danyelle in a two story home with [employer]. Pt states she is indep with ADLs and IADLs. Transportation: pt does not drive. She has family that can assist with transportation or she walks. DME/HHC: none SNF: states she was in a facility twice in [place] to recover from surgical procedures. Pt?s goal/plan: return home. Pt denies any discharge needs at this time. Plan: Home with support of pt's sister. Preston Marks RN AC
--- NOTE | 2023-05-29 14:13 | PCM.DC.SUM ---
Providers Date of Admission: 05/28/23 Primary Care Physician: TEETEE Escoto Consultations 05/28/23 17:47 Consult: General Surgery Routine Consulting Provider: Kari Orona Reason for Consult: SBO EMERGENT Consult: No MD Notified: Yes Date Notified: 05/28/23 Time Notified: 16:44 Method of Notification: ED Physician Initiated Reason For Visit: SBO Diagnosis Discharge Diagnosis (1) Complete small bowel obstruction: Status: Acute Code(s): K56.601 - Complete intestinal obstruction, unspecified as to cause (2) Abdominal pain: Status: Acute Code(s): R10.9 - Unspecified abdominal pain (3) Nausea and vomiting: Status: Acute Code(s): R11.2 - Nausea with vomiting, unspecified Plan Small bowel obstruction Contrast passing into the colon. Tolerating clears. Surgery on consult. Discharge DVT prophylaxis -Subcu Lovenox daily CODE STATUS -Full code is verified on admission Medications at Discharge Home Medications acetaminophen 500 mg capsule 500 mg PO Q6H PRN pain 05/28/23 Hospital Course Summary of Care Provided Hospital Course: Patient is small bowel obstruction. Small bowel follow-through by time was done was negative. Patient's abdomen was feeling better and was able tolerate clear liquid diet. Patient be discharged. Patient vies to return if she has recurrent symptoms as it may be evidence she is having repeat small bowel obstruction. Weight / BMI Weight Weight: 98.6 kg Body Mass Index (BMI) 37.3 ABG / Lab / Microbiology Data 05/29/23 05:17 05/29/23 05:17 Laboratory: Laboratory Results - last 24 hr 05/28/23 15:10: WBC 6.1, RBC 4.61, Hgb 12.8, Hct 41.0, MCV 88.9, MCH 27.8, MCHC 31.2 L, RDW Std Deviation 45.7 H, RDW Coeff of Yovana 14.3, Plt Count 198, MPV 9.8, Immature Gran % (Auto) 0.300, Neut % (Auto) 58.0, Lymph % (Auto) 32.1, [place] % (Auto) 6.9, Eos % (Auto) 2.0, Baso % (Auto) 0.7, Absolute Neuts (auto) 3.6, Absolute Lymphs (auto) 1.96, Nucleated RBC % 0, Sodium 145, Potassium 3.9, Chloride 112 H, Carbon Dioxide 30.0, Anion Gap 3 L, BUN 11, Creatinine 0.94, Estim Creat Clear Calc 84.51, Est GFR (MDRD) Af Amer 84, Est GFR (MDRD) Non-Af 69, BUN/Creatinine Ratio 11.8, Glucose 96, Lactic Acid 0.4, Calcium 9.3, Total Bilirubin 0.40, AST 20, ALT 29, Alkaline Phosphatase 96, Total Protein 6.8, Albumin 3.4, Globulin 3.4, Albumin/Globulin Ratio 1.0, Lipase 29 05/29/23 05:17: WBC 5.2, RBC 3.96 L, Hgb 10.9 L, Hct 35.5 L, MCV 89.6, MCH 27.5, MCHC 30.7 L, RDW Std Deviation 46.5 H, RDW Coeff of Yovana 14.2, Plt Count 187, MPV 10.0, Immature Gran % (Auto) 0.400, Neut % (Auto) 51.9, Lymph % (Auto) 36.6, [place] % (Auto) 7.4, Eos % (Auto) 2.9, Baso % (Auto) 0.8, Absolute Neuts (auto) 2.7, Absolute Lymphs (auto) 1.92, Nucleated RBC % 0, Sodium 143, Potassium 3.8, Chloride 115 H, Carbon Dioxide 27.0, Anion Gap 1 L, BUN 10, Creatinine 0.80, Estim Creat Clear Calc 103.43, Est GFR (MDRD) Af Amer 100, Est GFR (MDRD) Non-Af 83, BUN/Creatinine Ratio 12.5, Glucose 93, Calcium 8.1 L, Phosphorus 2.7, Magnesium 2.3, Total Bilirubin 0.80, AST 18, ALT 27, Alkaline Phosphatase 78, Total Protein 5.8 L, Albumin 2.9 L, Globulin 2.9, Albumin/Globulin Ratio 1.0, TSH 2.89 Microbiology: Microbiology 05/29/23 00:25 Stool Enteric Bacteriology - Final 05/29/23 00:25 Stool Clostridioides difficile (PCR) - Final Radiography Diagnostic Testing: Radiology Impression Abdomen/Pelvis CT 05/28/23 14:34 IMPRESSION: Dilated distal ileal loops with a transitional point at or near an anastomosis suggesting small bowel obstruction. The distalmost ileal loops are decompressed. Electronically Signed: Randall DO Vinod at 16:26 EST Reading Location ID and State: [facility] / [place] Tel [phone], Service support , D/C Instructions Discharge Diet: - ([place] diet. Advance as tolerated.) Meaningful Use Info Meaningful Use Diagnoses (Choose all that apply): None applicable Discharge Plan Admission Admit Date/Time: 05/28/23 16:43 Primary Reason for Your Visit: Small bowel obstruction Attending Provider: Romario Nieto Primary Care Provider: Mesfin Ramos Consulting Providers: Kari Orona; Aliyah Boyer Instructions Additional Instructions / Restrictions: You had a small bowel obstruction. Resolved on its own. May recur. If you have worsening abdominal pain similar to what you had, please return to the emergency room. Discharge Orders/Prescriptions Prescriptions: Continued acetaminophen 500 mg capsule 500 mg PO Q6H PRN (Reason: pain) Referrals / Follow Up: Mesfin Ramos, TEETEE [Primary Care Provider] - Within 2 Weeks Disposition Disposition (needs filled in before D/C Order can be placed): Home, Self Care Charges/Coding Visit Charges Inpatient E&M: 27949 Disch Hosp
[2023-05-29 15:20] VITALS: BP 91/63; PULSE 58; RESP 16; TEMP 36.4; O2SAT 94
--- OUTSIDE RECORDS SUMMARY | 2023-05-31 08:53 | XMS RPT_ITS | CCD ---
Author Name Unknown Address [address] [place] [address] Organization [facility] Care Team Providers Care Down Filler Name Role Phone America Luz MD Primary Care Provider AMERICA LUZ Referring Unavailable AMERICA LUZ Primary Care Unavailable AMERICA LUZ Attending Unavailable AMERICA LUZ Primary Care Unavailable AMERICA ULZ Primary Care Unavailable AMERICA LUZ Primary Care Unavailable AMERICA LUZ Primary Care Unavailable AMERICA LUZ Primary Care Unavailable KHUSHBOO COOPER Attending Unavailable AMERICA LUZ Referring Unavailable HAI REEDER Attending Unavailable AMERICA LUZ Primary Care Unavailable Allergies Allergy Classification Reported Allergen(s) Allergy Type Date of Onset Reaction(s) Facility (13 sources) Acetaminophen / oxyCODONE; Translations: [OXYCODONE-ACETAM INOPHEN] Drug Allergy 1 Shortness of Breath [facility] (13 sources) Amoxicillin; Translations: [AMOXICILLIN] Drug Allergy 2 Hives [facility] (13 sources) atorvastatin; Translations: [ATORVASTATIN] Drug Allergy 4 Vomiting [facility] (13 sources) Erythromycin; Translations: [ERYTHROMYCIN] Drug Allergy 0 Intolerance [facility] Work Phone: (13 sources) HYDROmorphone; Translations: [HYDROMORPHONE (BULK)] Drug Allergy 5 Anaphylaxis [facility] (13 sources) meloxicam; Translations: [MELOXICAM] Drug Allergy 4 Other: See Comments [facility] (13 sources) Naproxen; Translations: [NAPROXEN] Drug Allergy 1 Itching [facility] Work Phone: (13 sources) Pravastatin; Translations: [PRAVASTATIN] Drug Allergy 7 Itching [facility] Work Phone: (13 sources) risperiDONE; Translations: [RISPERIDONE] Drug Allergy 5 Swelling [facility] (13 sources) traMADol; Translations: [TRAMADOL] Drug Allergy 3 Intolerance [facility] Work Phone: (13 sources) Propoxyphene N-Acetaminophen; Translations: [PROPOXYPHENE N-ACETAMINOPHEN] Drug Allergy 2 Mental Status Change [facility] (13 sources) Sulfate Salt; Translations: [SULFATE SALT] Drug Allergy 6 Swelling [facility] (12 sources) zpack [Other] Propensity to adverse reactions 6 Mental Status Change [facility] (1 source) OTHER; Translations: [OTHER] Propensity to adverse reactions (disorder) 6 [facility] Repository Medications Current Medications Medication Drug Class(es) Dates Sig (Normalized) Sig (Original) polymyxin b 99669 unt/ml / trimethoprim 1 mg/ml ophthalmic solution [...] 98.1 [degF] Krislyn Aberegg PA Work Phone: [facility] 08-18-2022 10:57-0400 Diastolic blood pressure 76 mm[Hg] Krislyn Aberegg PA Work Phone: [facility] 08-18-2022 10:57-0400 Heart rate 97 /min Krislyn Aberegg PA Work Phone: [facility] 08-18-2022 10:57-0400 Respiratory rate 22 /min Krislyn Aberegg PA Work Phone: [facility] 08-18-2022 10:57-0400 SaO2% (BldA) [Mass fraction] 99 % Krislyn Aberegg PA Work Phone: [facility] 08-18-2022 10:57-0400 Systolic blood pressure 128 mm[Hg] Krislyn Aberegg PA Work Phone: [facility] 07-29-2022 14:41-0400 Diastolic blood pressure 60 mm[Hg] Khushboo Haagen OBSTETRICIAN AND GYNAECOLOGIST.CONSULTING SOFTWARE ENGINEER Work Phone: [facility] 07-29-2022 14:41-0400 Heart rate 98 /min Khushboo Haagen OBSTETRICIAN AND GYNAECOLOGIST.CONSULTING SOFTWARE ENGINEER Work Phone: [facility] 07-29-2022 14:41-0400 Respiratory rate 18 /min Khushboo Haagen OBSTETRICIAN AND GYNAECOLOGIST.CONSULTING SOFTWARE ENGINEER Work Phone: [facility] 07-29-2022 14:41-0400 SaO2% (BldA) [Mass fraction] 96 % Khushboo Haagen OBSTETRICIAN AND GYNAECOLOGIST.CONSULTING SOFTWARE ENGINEER Work Phone: [facility] 07-29-2022 14:41-0400 Systolic blood pressure 98 mm[Hg] Khushboo Haagen OBSTETRICIAN AND GYNAECOLOGIST.CONSULTING SOFTWARE ENGINEER Work Phone: [facility] 06-03-2022 15:28-0500 Body weight 92.08 kg America Luz MD Work Phone: [facility] 06-03-2022 15:28-0500 Diastolic blood pressure 62 mm[Hg] America Luz MD Work Phone: [facility] 06-03-2022 15:28-0500 Heart rate 83 /min America Luz MD Work Phone: [facility] 06-03-2022 15:28-0500 SaO2% (BldA) [Mass fraction] 95 % America Luz MD Work Phone: [facility] 06-03-2022 15:28-0500 Systolic blood pressure 102 mm[Hg] America Luz MD Work Phone: [facility] 04-28-2022 18:39-0500 Body temperature 98.71 [degF] Sophy Denbow PA-C Work Phone: [facility] 04-28-2022 18:39-0500 Body weight 91.63 kg Sophy Denbow PA-C Work Phone: [facility] 04-28-2022 18:39-0500 Diastolic blood pressure 64 mm[Hg] Sophy Denbow PA-C Work Phone: [facility] 04-28-2022 18:39-0500 Heart rate 84 /min Sophy Denbow PA-C Work Phone: [facility] 04-28-2022 18:39-0500 Respiratory rate 16 /min Sophy Denbow PA-C Work Phone: [facility] 04-28-2022 18:39-0500 SaO2% (BldA) [Mass fraction] 96 % Sophy Denbow PA-C Work Phone: [facility] 04-28-2022 18:39-0500 Systolic blood pressure 102 mm[Hg] Sophy Denbow PA-C Work Phone: [facility] Encounters Encounter Date Encounter Type Care Provider Facility Start: 08-18-2022 End: 08-18-2022 ambulatory AMERICA LUZ Facility:[facility] Start: 08-18-2022 End: 08-18-2022 Patient encounter procedure Luis Alfredo KINGSLEY Work Phone: [facility] Procedures Date Procedure Procedure Detail Performing Clinician Start: 07-29-2022 COVID WITH FLUA+B, ROUTINE Khushboo Haagen OBSTETRICIAN AND GYNAECOLOGIST.CONSULTING SOFTWARE ENGINEER Work Phone: Start: 07-29-2022 STREP A MOLECULAR (POC) Khushboo Zamarripaagen OBSTETRICIAN AND GYNAECOLOGIST.CONSULTING SOFTWARE ENGINEER Work Phone: Start: 05-21-2016 Adult depression screening assessment America Luz MD Work Phone: Plan of Treatment Date Care Activity Detail Author Start: 04-24-2025 Urine microalbumin profile DTAP,TDAP,TD (2 - Td or Tdap) [facility] Start: 06-03-2022 End: 08-03-2022 CBC W Auto Differential panel - Blood CBC + DIFF Lab Routine Hyperlipidemia, unspecified hyperlipidemia type Expected: 06/03/2022, Expires: 08/03/2022 [facility] Work Phone: Immunizations Immunization Date Immunization Notes Care Provider Olive porras 03-12-2022 influenza, seasonal, injectable Khushboo Haagen OBSTETRICIAN AND GYNAECOLOGIST.CONSULTING SOFTWARE ENGINEER Work Phone: [facility] 04-26-2020 influenza, injectabl e, quadrivalent, preservative free Khushboo Haagen OBSTETRICIAN AND GYNAECOLOGIST.CONSULTING SOFTWARE ENGINEER Work Phone: [facility] 02-08-2018 influenza, seasonal, injectable, preservative free Khushboo Haagen OBSTETRICIAN AND GYNAECOLOGIST.CONSULTING SOFTWARE ENGINEER Work Phone: [facility] 05-21-2016 influenza, injectabl e, quadrivalent, contains preservative America Luz MD Work Phone: [facility] 04-24-2015 tetanus toxoid, redu daniel diphtheria toxoid, and acellular pertussis vaccine, adsorbed Khushboo Haagen OBSTETRICIAN AND GYNAECOLOGIST.CONSULTING SOFTWARE ENGINEER Work Phone: [facility] 02-22-2015 influenza, injectabl e, quadrivalent, contains preservative America Luz MD Work Phone: [facility] 01-17-2014 influenza, seasonal, injectable America Luz MD Work Phone: [facility] 01-17-2014 pneumococcal polysaccharide vaccine, 23 valent America Luz MD Work Phone: [facility] Payers Date Payer Category Payer Medicaid [id number] 2021 Medicaid [id number] 2021 Medicaid [id number] 2020 Medicaid [facility] MEDICAID [facility] PLAN MEDICAID [id number] 2020-Present [phone] [address] [place] [address] Medicaid [id number] Social History Date Type Detail Facility Start: 10-28-2020 End: 04-28-2022 Tobacco smoking status NHIS Ex-smoker [facility] End: 01-11-2020 History of tobacco use Current smoker [facility] End: 01-11-2020 History of tobacco use Cigarette Smoker [facility] Start: 10-28-2020 End: 04-28-2022 Cigarettes smoked current (pack per day) - Reported 0.25 [facility] Start: 10-28-2020 End: 04-28-2022 Tobacco use and exposure Smokeless tobacco non-user [facility] Start: 06-09-2021 End: 08-18-2022 Alcohol intake Current non-drinker of alcohol (finding) [facility] Start: 1980 Sex Assigned At Not on file C [facility] Clinical Notes 02-16-2013 to 09-16-2022 TEETEE Tang - 08/18/2022 11:05 AM Ayaz Fragoso Ma - 07/30/2022 1:50 PM EDTTelephone Encounter - Kerry Fragoso Ma - 07/30/2022 10:36 AM EDTPatient Instructions Note Date & Type Note Facility 09-16-2022 Note Patient Outreach (IN TMMN) SARAHPETE ([id number]) 1980 F Date Time Provider Department 09/16/22 [...] for screening mammogram for breast cancer [Z12.31] Order(s):[facility] SCREENING [[id number]] Order #: [id number] FUTURE Prescriptions as of 09/21/2022 - Lobbgebmfydybbg-Ppeihuige-MF (BROMFED DM) 2-30-10 mg/5 mL syrup Take [...] Encounter Status:Closed by EPIC, PRODUSER on 09/21/22 [facility] 08-18-2022 Note HNO ID: [id number] Author: RT Jori(R) Service: Nuclear Medicine Author [...] RT Jori(R) August 18, 2022 11:28 AM [facility] 08-18-2022 Note HNO ID: [id number] Author: TEETEE Tang Service: ? Author Type: Physician Cloth Brushing And Sueding Supervisor Type: Progress Notes Filed: 08/18/2022 12:07 PM Note Text: This note was created using Fancredriter. Subjective Pete Wright is a 41 year [...] BHARATH, small bowel resection Dr. Sumit Cutler [facility] will TOTAL ABDOMINAL HYSTERECT W/WO RMVL TUBE OVARY 09/2005 after vag delivery-hemorrhage, AT/WB ALLERGIES Amoxicillin, Darvocet A500 [Propoxyphene N-Acetaminophen], Dilaudid [Hydromorphone (Bulk)], Erythromycin, Lipitor [Atorvastatin], Meloxicam, Naproxen, Percocet [Oxycodone-Acetaminophen], Pravastatin, Risperidone, Sulfate Salt, Tramadol, and Zpack [Other] MEDICATIONS acetaminophen (TYLENOL) 325 mg tablet Take 650 mg by mouth every 6 hours as needed. Vqpjkwtwzmqyveh-Rnhpvzfjf-GD (BROMFED DM) 2-30-10 mg/5 mL syrup Take [...] prompt ER evaluation. (more content not included)... [facility] 08-18-2022 History of Presen t illness Narrative This note was created using Fancredriter. Subjective Pete Wright is a 41 year [...] small bowel resection Dr. Sumit Cutler [facility] will TOTAL ABDOMINAL HYSTERECT W/WO RMVL TUBE OVARY 09/2005 after vag delivery-hemorrhage, AT/WB ALLERGIES Amoxicillin, Darvocet A500 [Propoxyphene N-Acetaminophen], Dilaudid [Hydromorphone (Bulk)], Erythromycin, Lipitor [Atorvastatin], Meloxicam, Naproxen, Percocet [Oxycodone-Acetaminophen], Pravastatin, Risperidone, Sulfate Salt, Tramadol, and Zpack [Other] MEDICATIONS acetaminophen (TYLENOL) 325 mg tablet Take 650 mg by mouth every 6 hours as needed. Myzjejtfgytlass-Eatfvoalj-TR (BROMFED DM) 2-30-10 mg/5 mL syrup Take [...] evaluation. TEETEE Tang documented in this encounter [facility] 07-30-2022 Note HNO ID: [id number] Author: Kerry Fragoso Ma Service: ? Author Type: ? Type: Progress Notes Filed: 07/30/2022 1:55 PM Note Text: POPULATION HEALTH NAVIGATION OUTREACH Action/FYI Pt recently seen 07/29/22, order placed 10/08/21 Patient Identified by Name and : YES, Outreach Outcome/Action Letter mailed Did you use a PCP flex slot to schedule this appointment? N/A Reason for Outreach Care Gap or Scheduling/Wellness visits Payer: Payor: [facility] MEDICAID / Plan: [facility] COMMUNITY PLAN MEDICAID [facility] / Product Type: Medicaid / Care Gap Reviewed:: Breast Cancer screening Reminder: Reminder note to check Health Maintenance for items below Health Maintenance items due: HEPATITIS B(1 of 3 - 3-dose series) Never done COVID-19 VACCINE(1) Never done HEPATITIS C SCREENING Never done MAMMOGRAM Never done DEPRESSION ASSESSMENT Never done Navigation Signature: Kerry Fragoso Ma July 30, 2022 1:50 PM [facility] 07-30-2022 Note Patient Outreach (FA MPWS) PETE WRIGHT ([id number]) 1980 F Date Time Provider Department 07/30/22 KERRY RFAGOSO During your visit today, we recorded the following information about you: Kerry Fragoso Ma 07/30/2022 1:55 PM Signed POPULATION HEALTH NAVIGATION OUTREACH Action/FYI Pt recently seen 07/29/22, order placed 10/08/21 Patient Identified by Name and : YES, Outreach Outcome/Action Letter mailed Did you use a PCP flex slot to schedule this appointment? N/A Reason for Outreach Care Gap or Scheduling/Wellness visits Payer: Payor: [facility] MEDICAID / Plan: [facility] COMMUNITY PLAN MEDICAID [facility] / Product Type: Medicaid / [...] Cmt: Mammogram Prescriptions as of 07/30/2022 - Wduocogwqfhayfl-Egdsijyxa-WG (BROMFED DM) 2-30-10 mg/5 mL syrup Take [...] Status:Closed by KERRY FRAGOSO MA on 07/30/22 [facility] 07-30-2022 History of Presen t illness Narrative POPULATION HEALTH NAVIGATION OUTREACH Action/FYI Pt recently seen 07/29/22, order placed 10/08/21 Patient Identified by Name and : YES, Outreach Outcome/Action Letter mailed Did you use a PCP flex slot to schedule this appointment? N/A Reason for Outreach Care Gap or Scheduling/Wellness visits Payer: Payor: [facility] MEDICAID / Plan: [facility] COMMUNITY PLAN MEDICAID [facility] / Product Type: Medicaid / [...] 2022 1:50 PM documented in this encounter [facility] 07-30-2022 Miscellaneous Notes Patient was made aware of the results. Patient verbalizes understanding. Kerry Fragoso Ma ----- Message from Mesfin Ramos PA-C sent at 07/30/2022 10:13 AM EDT ----- Please let her know Covid and flu negative Thanks, Gamaliel Ramos PA-C documented in this encounter [facility] 07-30-2022 Miscellaneous Notes Patient calling asking for COVID test results. COVID WITH FLUA+B, ROUTINE Order: [id number] Status: Final result Visible to patient: No [...] B by RT PCR R Resulting Agency [facility] Went over results of COVID and Influenza A and B tests with understanding. documented in this encounter [facility] 07-29-2022 Note HNO ID: [id number] Author: Khushboo Cooper APRN.CONSULTING SOFTWARE ENGINEER Service: ? Author Type: Nurse Practitioner Type: [...] BHARATH, small bowel resection Dr. Sumit Cutler [facility] will TOTAL ABDOMINAL HYSTERECT W/WO RMVL [...] ROUTINE - BROMPHENIRAMINE-PSE (more content not included)... [facility] 07-29-2022 Instructions Khushboo Cooper APRN.BROOKE - [...] please notify provider. documented in this encounter [facility] 07-29-2022 History of Presen t illness [...] CHOLECYSTECTOMY Cholecystectomy CONSULT TO COLO-RECTAL SURGERY 04/14/2008,04/16/2008 [facility] EXPLORATORY LAPAROTOMY CELIOTOMY W/WO BIOPSY SPX Laparotomy, exp. Adhesiolysis. Abdominal wall resection (mesh included), primary closure. OOPHORECTOMY PARTIAL/TOTAL UNI/BI just one left ovary and both tubes OOPHORECTOMY PARTIAL/TOTAL UNI/BI 2007 dr[facility] del [facility] right ovary PAST SURGICAL HISTORY OF Bowel resection PAST SURGICAL HISTORY OF 01/25/2020 SBO: exp lap, BHARATH, small bowel resection Dr. Sumit Cutler [facility] will TOTAL ABDOMINAL HYSTERECT W/WO RMVL [...] with the plan. documented in this encounter [facility] 06-22-2022 Note HNO ID: [id number] Author: Hai Reeder MD Service: ? Author Type: Physician Type: Progress Notes Filed: 07/07/2022 4:54 PM Note Text: Hai Reeder MD Department of Orthopaedics Orthopaedics [address] [place] [address] Dept: [phone] Dept June 22, 2022 CHIEF COMPLAINT: New [...] seems to help. She was seen at [facility] ER for shoulder pain on 06/10/22 and was prescribed hydrocodone-acetaminophen which helps but she only takes it at night. Patient is R hand dominant and works at [employer] where she is constantly reaching, stocking, pushing [...] of degenerative changes in the acromioclavicular joint. Church Organist: WILEY Transcribe Date/Time: Jun 05 2022 4:52P [...] CHOLECYSTECTOMY Cholecystectomy CONSULT TO COLO-RECTAL SURGERY 04/14/2008,04/16/2008 [facility] EXPLORATORY LAPAROTOMY CELIOTOMY W/WO BIOPSY SP (more content not included)... [facility] 06-22-2022 History of Presen t illness Narrative Hai Reeder MD Department of Orthopaedics Orthopaedics [address] [facility] [address] Dept: [phone] Dept June 22, 2022 CHIEF COMPLAINT: New [...] seems to help. She was seen at [facility] ER for shoulder pain on 06/10/22 and was prescribed hydrocodone-acetaminophen which helps but she only takes it at night. Patient is R hand dominant and works at [employer] where she is constantly reaching, stocking, pushing [...] of degenerative changes in the acromioclavicular joint. Church Organist: [facility] Transcribe Date/Time: Jun 05 2022 4:52P [...] BHARATH, small bowel resection Dr. Sumit Cutler [facility] will TOTAL ABDOMINAL HYSTERECT W/WO RMVL [...] physician via US mail. America Luz [address] [address] Hai Reeder MD documented in this encounter [facility] 06-08-2022 Miscellaneous Notes Patient notified. Xray shows mild degenerative changes. See ortho as we already ordered documented in this encounter [facility] 06-03-2022 Note HNO ID: [id number] Author: RT Jori(R) Service: Nuclear Medicine Author [...] RT Jori(R) June 03, 2022 4:18 PM [facility] 06-03-2022 Note HNO ID: [id number] Author: America Luz MD Service: ? Author Type: Physician Type: Progress Notes Filed: 06/03/2022 3:48 PM Note Text: Patient presents with: Pain (Shoulder Pain): right HPI: Patient presents today for office visit for follow up. HOSPITAL/ER FOLLOW UP: Reason for visit: right shoulder pain Which facility: [facility] Date of visit: 06/02/22 Diagnosis: right shoulder tendiitis Treatment given: augie states that makes her too sleepy Current symptoms: did have some numbness Asking about light duty Working at [employer] Also asking about a splint Whole are [...] small bowel resection Dr. Sumit Cutler [facility] will TOTAL ABDOMINAL HYSTERECT W/WO RMVL TUBE [...] E78.5 (primary diagnosi (more content not included)... [facility] 06-03-2022 Miscellaneous Notes Addended by: AMERICA LUZ on: 06/03/2022 04:17 PM Modules accepted: Orders documented in this encounter [facility] 06-03-2022 History of Presen t illness Narrative Patient presents with: Pain (Shoulder Pain): right HPI: Patient presents today for office visit for follow up. HOSPITAL/ER FOLLOW UP: Reason for visit: right shoulder pain Which facility: [facility] Date of visit: 06/02/22 Diagnosis: right shoulder tendiitis Treatment given: norjoshua states that makes her too sleepy Current symptoms: did have some numbness Asking about light duty Working at [employer] Also asking about a splint Whole are [...] CHOLECYSTECTOMY Cholecystectomy CONSULT TO COLO-RECTAL SURGERY [facility]/14[facility]2008,04[facility] EXPLORATORY LAPAROTOMY CELIOTOMY W/WO BIOPSY SPX Laparotomy, exp. Adhesiolysis. Abdominal wall resection (mesh included), primary closure. OOPHORECTOMY PARTIAL/TOTAL UNI/BI just one left ovary and both tubes OOPHORECTOMY PARTIAL/TOTAL UNI/BI 2007 dr. del [facility] right ovary PAST SURGICAL HISTORY OF Bowel resection PAST SURGICAL HISTORY OF 01/25/2020 SBO: exp lap, BHARATH, small bowel resection Dr. Sumit Cutler [facility] will TOTAL ABDOMINAL HYSTERECT W/WO RMVL [...] America Luz MD documented in this encounter [facility] 04-28-2022 Note HNO ID: [id number] Author: Sophy Hampton PA-C Service: ? Author Type: Physician Cloth Brushing And Sueding Supervisor Type: Progress Notes Filed: 04/28/2022 6:56 PM [...] agrees with the plan. Sophy Hampton PA-C [facility] 04-28-2022 History of Presen t illness [...] Sophy Hampton PA-C documented in this encounter [facility] 03-19-2022 Miscellaneous Notes TRANSITION CARE MANAGEMENT (TCM) INITIAL CONTACT [employer] Tender Outreach Provider Action/FYI: [facility] abdominal pain, small bowel obstruction Patient said she was given a medication that she reacted badly to had cardiac arrest she said I and they brought me back this has happened few times at [facility], she can not take certain medications and they still give them to her. Initial contact with patient post discharge, spoke to patient. Patient identified by name and . TRANSITION CARE MANAGEMENT INITIAL OUTREACH DOCUMENTATION: No flowsheet data found. SUMMARY: -Pt discharged from [facility] on 03/13/2022. -Admitted for: 03/09/2022 Do [...] discharge instructions/AVS . Restate discharge instructions from [facility] verbally, copy/paste via [employer], mail, or provide in person. Do you have all the necessary equipment and supplies at home? No, follow site specific process to secure durable medical equipment and/or supplies for the patient, handoff to RN/CLIENT CARE CONSULTANT, or LIP Medical records from recent hospitalization: Care Everywhere Attempted to reach patient. No answer, voicemail not set up. Kerry Fragoso Ma Please reach out for KWASI Duran: SBO and respiratory arrest , d/c 03/12/2022 and no appointment. Thanks, Gamaliel Ramos PA-C documented in this encounter [facility] 12-05-2021 Miscellaneous Notes Patient calling she was sent home from work Wednesday and did home COVID test was positive. Patient said she had sore throat, nothing else. Now she has a runny nose. Asking what can she take for her symptoms. [facility], patient thought she could go back to work already. Explained about the CDC guidelines to her. documented in this encounter [facility] 10-08-2021 Note Patient Outreach (IN TMMN) PETE WRIGHT ([id number]) 1980 F Date Time Provider Department 10/08/21 [...] for screening mammogram for breast cancer [Z12.31] Order(s):[facility] SCREENING [[id number]] Order #: [id number] FUTURE Prescriptions as of 10/13/2021 - acetaminophen [...] Encounter Status:Closed by EPIC, PRODUSER on 10/13/21 [facility] documented as of this encounter (statuses as of 10/13/2021) [facility] History of Past illness Narrative* Problem Noted Date Resolved Date Closed nondisplaced fracture of fifth left metat arsal bone 02/16/2013 09/15/2013 Disorders of bursae and tend ons in shoulder region, unspecified 01/23/2008 03/13/2010 Other specified complication, antepartum(646.83) 09/15/2005 03/13/2010 documented as of this encounter (statuses as of 01/02/2022) [facility] History of Past illness Narrative* Problem Noted Date Resolved Date Closed nondisplaced fracture of fifth left metat arsal bone 02/16/2013 09/15/2013 Disorders of bursae and tend ons in shoulder region, unspecified 01/23/2008 03/13/2010 Other specified complication, antepartum(646.83) 09/15/2005 03/13/2010 documented as of this encounter (statuses as of 04/29/2022) [facility] History of Past illness Narrative* Problem Noted Date Resolved Date Closed nondisplaced fracture of fifth left metat arsal bone 02/16/2013 09/15/2013 Disorders of bursae and tend ons in shoulder region, unspecified 01/23/2008 03/13/2010 Other specified complication, antepartum(646.83) 09/15/2005 03/13/2010 documented as of this encounter (statuses as of 04/29/2022) [place] [address]-07-2013 History of Past illness Narrative* Problem Noted Date Resolved Date Closed nondisplaced fracture of fifth left metat arsal bone 02/16/2013 09/15/2013 Disorders of bursae and tend ons in shoulder region, unspecified 01/23/2008 03/13/2010 Other specified complication, antepartum(646.83) 09/15/2005 03/13/2010 documented as of this encounter (statuses as of 06/03/2022) [place] [address]-07-2013 History of Past illness Narrative* Problem Noted Date Resolved Date Closed nondisplaced fracture of fifth left metat arsal bone 02/16/2013 09/15/2013 Disorders of bursae and tend ons in shoulder region, unspecified 01/23/2008 03/13/2010 Other specified complication, antepartum(646.83) 09/15/2005 03/13/2010 documented as of this encounter (statuses as of 06/08/2022) [facility] History of Past illness Narrative* Problem Noted Date Resolved Date Closed nondisplaced fracture of fifth left metat arsal bone 02/16/2013 09/15/2013 Disorders of bursae and tend ons in shoulder region, unspecified 01/23/2008 03/13/2010 Other specified complication, antepartum(646.83) 09/15/2005 03/13/2010 documented as of this encounter (statuses as of 07/07/2022) [facility] History of Past illness Narrative* Problem Noted Date Resolved Date Closed nondisplaced fracture of fifth left metat arsal bone 02/16/2013 09/15/2013 Disorders of bursae and tend ons in shoulder region, unspecified 01/23/2008 03/13/2010 Other specified complication, antepartum(646.83) 09/15/2005 03/13/2010 documented as of this encounter (statuses as of 07/30/2022) [facility] History of Past illness Narrative* Problem Noted Date Resolved Date Closed nondisplaced fracture of fifth left metat arsal bone 02/16/2013 09/15/2013 Disorders of bursae and tend ons in shoulder region, unspecified 01/23/2008 03/13/2010 Other specified complication, antepartum(646.83) 09/15/2005 03/13/2010 documented as of this encounter (statuses as of 07/30/2022) [address]07-2013 History of Past illness Narrative* Problem Noted Date Resolved Date Closed nondisplaced fracture of fifth left metat arsal bone 02/16/2013 09/15/2013 Disorders of bursae and tend ons in shoulder region, unspecified 01/23/2008 03/13/2010 Other specified complication, antepartum(646.83) 09/15/2005 03/13/2010 documented as of this encounter (statuses as of 07/31/2022) [facility] History of Past illness Narrative* Problem Noted Date Resolved Date Closed nondisplaced fracture of fifth left metat arsal bone 02/16/2013 09/15/2013 Disorders of bursae and tend ons in shoulder region, unspecified 01/23/2008 03/13/2010 Other specified complication, antepartum(646.83) 09/15/2005 03/13/2010 documented as of this encounter (statuses as of 08/18/2022) [facility] note* Diagnosis Encounter for screening mammogram for breast cancer documented in this encounter [facility] note* Diagnosis Eye irritation- Primary Other ill-defined disorder of eye Blepharitis of both upper and lower eyelid of left eye, unspecified type documented in this encounter [facility] note* Diagnosis Hyperlipidemia, unspecified hyperlipidemia type- Primary Acute pain of right shoulder documented in this encounter [facility] note* Diagnosis Shoulder impingement- Primary Other affections of shoulder region, not elsewhere classified Acute pain of right shoulder documented in this encounter [facility] note* Diagnosis Viral upper respiratory tract infection- Primary Acute upper respiratory infections of unspecified site Sore throat Acute pharyngitis documented in this encounter [facility] note* Diagnosis Pain in lower jaw- Primary Jaw pain documented in this encounter [facility] for referral (narrative)* Diagnostic Procedure Only (Routine) - Pending Review Specialty Diagnoses / Procedures Referred By Burton barnes Referred To Contact BR IMAGING Diagnoses Encounter for screening mammogram for breast cancer Procedures MARCIAL SCREENING SCREENING MAMMOGRAPHY BI 2-VIEW BREAST INC CAD America Luz MD [address] [place] [address] [facility] [address] [place] [address] Referral ID Status Reason Start Date Expiration Date Visits Requested Visits Authorized [id number] Pending Review Auto-Generat ed Referral 10/08/2021 11/07/2022 1 1 [facility] for referral (narrative)* Diagnostic Procedure Only (Routine) - Closed Specialty Diagnoses / Procedures Referred By Burtno barnes Referred To Contact XR IMAGING Diagnoses Acute pain of right shoulder Procedures XR SHOULDER GENERAL 3V OR MORE AP/TRUE AP/OTHER RIGHT RADEX SHOULDER COMPLETE MINIMUM 2 VIEWS America Luz MD [address] [place] [address] Xr Imaging Referral ID Status Reason Start Date Expiration Date V isits Requested Visits Authorized [id number] Closed Auto-Generate d Referral 06/03/2022 07/03/2023 1 1 * Consult, Test, Treat (Routine) - Authorized Specialty Diagnoses / Procedures Referred By Contac t Referred To Contact Orthopedics Diagnoses Acute pain of right shoulder Procedures CONSULT TO ORTHOPAEDICS OFFICE/OUTPATIENT [facility] [place] 60-74 MINUTES America Luz MD [address] [place] [address] Referral ID Status Reason Start Date Expiration Date Visits Requested Visits Authorized [id number] Authorized PCP Requested Referral 06/03/2022 06/03/2023 1 1 [facility] Diagnostic Procedure Only (Urgent) - Closed Specialty Diagnoses / Procedures Referred By Contac t Referred To Contact XR IMAGING Diagnoses Pain in lower jaw Procedures XR MANDIBLE 4V PA/DEX/BOTH OBL RADIOLOG EXAM MANDIBLE COMPL MINIMUM 4 VIEWS [facility] [address] [place] [address] Xr Imaging Referral ID Status Reason Start Date Expiration Date V isits Requested Visits Authorized [id number] Closed Auto-Generate d Referral 08/18/2022 09/17/2023 1 1 [facility] Advance Directives No Advanced Directives Records FoundDocuments on File Type Date Recorded 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 Advance Directive(s) Reason for Referral Specialty Diagnoses / Procedures Referred By Contac t Referred To Contact [facility] Diagnoses Acute pain of right shoulder Shoulder impingement M25.511 (ICD-10-CM) - Acute pain of right shoulder M25.819 (ICD-10-CM) - Shoulder impingement Procedures CONSULT TO PHYSICAL THERAPY PHYSICAL THERAPY EVALUATION HIGH COMPLEX 45 MINS Hai Reeder MD [address] [place] [address] [facility] [place] [address] [place] [address] Referral ID Status Reason Start Date Expiration Date Visits Requested Visits Authorized [id number] Authorized Auto-Generat ed Referral 04/12/2022 04/11/2023 1 [...] or prosecute any alcohol or drug abuse patient.[facility] the event this information is protected by the Federal Confidentiality of Alcohol and Drug Abuse Patient Records regulations: The Federal rules restrict any use of the information to criminally investigate or prosecute any alcohol or drug abuse patient.[facility] the event this information is protected by the Federal Confidentiality of Alcohol and Drug Abuse Patient Records regulations: The Federal rules restrict any use of the information to criminally investigate or prosecute any alcohol or drug abuse patient.[facility] the event this information is protected by the Federal Confidentiality of Alcohol and Drug Abuse Patient Records regulations: The Federal rules restrict any use of the information to criminally investigate or prosecute any alcohol or drug abuse patient.[facility] the event this information is protected by the Federal Confidentiality of Alcohol and Drug Abuse Patient Records regulations: The Federal rules restrict any use of the information to criminally investigate or prosecute any alcohol or drug abuse patient.[facility] the event this information is protected by the Federal Confidentiality of Alcohol and Drug Abuse Patient Records regulations: The Federal rules restrict any use of the information to criminally investigate or prosecute any alcohol or drug abuse patient.[facility] the event this information is protected by the Federal Confidentiality of Alcohol and Drug Abuse Patient Records regulations: The Federal rules restrict any use of the information to criminally investigate or prosecute any alcohol or drug abuse patient.[facility] the event this information is protected by the Federal Confidentiality of Alcohol and Drug Abuse Patient Records regulations: The Federal rules restrict any use of the information to criminally investigate or prosecute any alcohol or drug abuse patient.[facility] the event this information is protected by the Federal Confidentiality of Alcohol and Drug Abuse Patient Records regulations: The Federal rules restrict any use of the information to criminally investigate or prosecute any alcohol or drug abuse patient.[facility] the event this information is protected by the Federal Confidentiality of Alcohol and Drug Abuse Patient Records regulations: The Federal rules restrict any use of the information to criminally investigate or prosecute any alcohol or drug abuse patient.[facility] the event this information is protected by the Federal Confidentiality of Alcohol and Drug Abuse Patient Records regulations: The Federal rules restrict any use of the information to criminally investigate or prosecute any alcohol or drug abuse patient.[facility] the event this information is protected by the Federal Confidentiality of Alcohol and Drug Abuse Patient Records regulations: The Federal rules restrict any use of the information to criminally investigate or prosecute any alcohol or drug abuse patient.[facility] Care Teams (unrecognized sec tion and content) Down Filler Relationship Specialty Start Date End Date America Luz MD [address] [place] [address] PCP - General Family Medicine 07/05/17 Down Filler Relationship Specialty Start Date End Date America Luz MD [facility] [place] [address] PCP - General Family Medicine 07/05/17 Down Filler Relationship Specialty Start Date End Date America Luz MD [facility] [place] [address] PCP - General Family Medicine 07/05/17 Down Filler Relationship Specialty Start Date End Date America Luz MD [facility] [place] [address] PCP - General Family Medicine 07/05/17 Down Filler Relationship Specialty Start Date End Date America Luz MD [address] [place] [address], [place] [address] PCP - General Family Medicine 07/05/17 Down Filler Relationship Specialty Start Date End Date America Luz MD [address] [place], [place] [id number] PCP - General Family Medicine 07/05/17 Down Filler Relationship Specialty Start Date End Date America Luz MD [address] [place], [place] [id number] PCP - General Family Medicine 07/05/17 Down Filler Relationship Specialty Start Date End Date America Luz MD [address] [place], [place] [id number] PCP - General Family Medicine 07/05/17 Down Filler Relationship Specialty Start Date End Date America Luz MD [address] [place] [address] PCP - General Family Medicine [...] MDM 60-74 MINUTES America Luz MD [address] [place] [address] Referral ID Status Reason Start Date Expiration Date V isits Requested Visits Authorized [id number] Closed PCP Requested Referral 06/03/2022 06/03/2023 1 [...] BE BASED ON THE PRIMARY CLINICAL RECORDS. [facility]. provides no warranty or guarantee of the accuracy or completeness of information in this document.
== END 2023-05-29 15:40 | disposition home or self-care (01) ==
LOC: ED 14:51 → PCU 21:38
PROVIDERS: Physician Assistant; Admitting Provider Internal Medicine; Emergency Provider Emergency Medicine; PCP Physician Assistant
DX: K56.601 Complete intestinal obstruction, unspecified as to cause (principal); E66.9 Obesity, unspecified; Z68.37 Body mass index [BMI] 37.0-37.9, adult; Z87.891 Personal history of nicotine dependence; E78.5 Hyperlipidemia, unspecified; G47.33 Obstructive sleep apnea (adult) (pediatric); J45.909 Unspecified asthma, uncomplicated
CPT/HCPCS: 36415; 74177; 74250; 80053; 83605; 83690; 83735; 84100; 84443; 85025; 87493; 87506; 94668; 96361; 96372; 96374; 96375; 96376; 99221; 99284; J7030; J7120; Q9967; A4216; G0378; J2405

== ENCOUNTER 2023-09-13 09:54 | Emergency (ER) | payer MEDICAID, SELFPAY ==
[2023-09-13 09:54] VITALS: BP 134/94; PULSE 77; RESP 18; TEMP 35.8; O2SAT 99; BMI 35.0
[2023-09-13 10:37] LABS: Absolute Lymphocyte Count 1.84 X10^3/uL (0.83-4.51); Absolute Neutrophil Count 2.8 X10^3/uL (2.0-7.7); Basophil# 0.05 X10^3/uL; Eosinophil# 0.12 X10^3/uL; Eosinophils% 2.3 % (0-5); Hematocrit 41.9 % (37-47); Hemoglobin 12.8 g/dL (12.0-15.0); Lymphocyte # 1.84 X10^3/ul (0.83-4.51); Mean Corp Hgb Conc 30.5 g/dL (32-36); Mean Corpuscular Hgb 27.8 pg (27.0-32.0); Mean Corpuscular Volume 90.9 fL (81-99); Mean Platelet Vol. 9.8 fl (6.2-12.0); Monocyte# 0.28 X10^3/uL; Monocyte% 5.5 % (0-10); NRBC Flagged by Analyzer 0 % (0-5); Neutrophil # 2.81 X10^3/uL (2.7-7.7); Platelet Count 167 K/mm3 (150-450); RBC Distribution Width CV 14.1 % (11.6-14.6); RBC Distribution Width SD 47.1 fl (35.1-43.9); Red Blood Count 4.61 M/mm3 (4.2-5.4); White Blood Count 5.1 K/mm3 (4.4-11.0)
[2023-09-13 10:49] LABS: Mucous, Urine 0 SEEN /hpf (<or=2+); Red Blood Cells-Urine 0 SEEN /hpf (0-5)
[2023-09-13 10:52] LABS: AST(SGOT) 20 U/L (15-37); Alanine Aminotransfer ALT/SGPT 29 U/L (13-56); Albumin, Serum 3.4 g/dL (3.2-5.0); Alkaline Phosphatase 81 U/L (45-117); Anion Gap 4 (5-15); BUN 10 mg/dL (7-18); BUN/Creat Ratio 10.5 RATIO (10-20); Calcium,Total 9.3 mg/dL (8.5-10.1); Chloride 111 mmol/L (98-107); Creatinine, Serum 0.96 mg/dL (0.55-1.02); EST Glomerular Filtration Rate 67 mL/min (>60); Est Glom Filt Rate - Afr Amer 82 mL/min (>60); Estimated Creatinine Clearance 82.44 ml/min; Globulin 3.3 g/dL (2.2-4.2); Glucose 97 mg/dL (74-106); Lipase 26 U/L (13-75); Potassium 4.1 mmol/L (3.5-5.1); Protein, Total 6.7 g/dL (6.4-8.2); Sodium Level 143 mmol/L (136-145)
--- NOTE | 2023-09-13 10:52 | ED.VIS.GI ---
HPI HPI - GI History of Present Illness Chief Complaint: Abd Pain Narrative Narrative: 43-year-old female presenting with abdominal pain and diarrhea. Patient states this started 2 to 3 days ago. Patient has extensive history of bowel resection. She states she has had 4 different resections. She states initially she had a bowel obstruction secondary to adhesions from hysterectomy. After this she had the other surgeries. Patient states this feels like when she had a bowel obstruction. She has not had any black or bloody stools. She states her diarrhea is chronic and unchanged. No fevers. No vomiting. She describes her pain as diffuse over the whole abdomen. No urinary or vaginal complaints. [facility] Medical History (Updated 06/06/23 @ 00:01 by Background Daemon) Asthma Chronic pain Sleep apnea Migraines Cardiac arrest due to respiratory disorder Small bowel anastomotic dilation Rheumatoid arthritis Former smoker Bipolar disorder HLD (hyperlipidemia) Obesity Former tobacco use History of borderline diabetes mellitus SBO (small bowel obstruction) Nonspecific abdominal pain Iron deficiency anemia Bowel obstruction Hydroureter Obesity (BMI 30-39.9) History of multiple abdominal surgeries History of small bowel obstruction Home Medications ?Medication ?Instructions ?Recorded ?Last Taken ?Type acetaminophen 500 mg capsule 500 mg PO Q6H PRN pain 05/28/23 05/27/23 History ondansetron 4 mg disintegrating 4 mg PO Q8H PRN PRN Nausea #14 tabs 09/13/23 Unknown Rx tablet Allergy/AdvReac Type Severity Reaction Status Date / Time hydromorphone HCl (From Allergy Severe Anaphylaxis Verified 09/13/23 09:54 Dilaudid) aspirin (From Percodan) Allergy Intermediate Swelling Verified 09/13/23 09:54 oxycodone terephthalate Allergy Intermediate Swelling Verified 09/13/23 09:54 (From Percodan) amoxicillin Allergy Hives Verified 09/13/23 09:54 ampicillin Allergy Swelling Verified 09/13/23 09:54 azithromycin Allergy Other Verified 09/13/23 09:54 erythromycin base Allergy Hives Verified 09/13/23 09:54 fentanyl Allergy Anaphylaxis Verified 09/13/23 09:54 orphenadrine (From Norflex) Allergy Anaphylaxis Verified 09/13/23 09:54 oxycodone HCl (From Percocet) Allergy Anaphylaxis Verified 09/13/23 09:54 propoxyphene napsylate (From Allergy Other Verified 09/13/23 09:54 Darvocet-N) Sulfa (Sulfonamide Allergy Other Verified 09/13/23 09:54 Antibiotics) tramadol Allergy Hives Verified 09/13/23 09:54 Family History Father Cancer Hx Leukemia. Diabetes CVA (cerebral vascular accident) Mother Cancer Surgical History History of cholecystectomy S/P exploratory laparotomy History of bowel resection S/P cholecystectomy H/O: hysterectomy History of appendectomy Social History household members: family Smoking Status: Former smoker alcohol intake: never substance use type: does not use ROS ROS ED Constitutional Constitutional ED: Denies chills, fever(s) or sweats Eyes Eyes: Denies blurry vision or change in vision ENT ENT ED: Denies ear pain or sore throat Cardiovascular Cardiovascular: Denies chest pain, palpitations or racing heartbeat Respiratory/Chest Respiratory/Chest: Denies cough, dyspnea or sputum Gastrointestinal Gastrointestinal: Reports abdominal pain and diarrhea; Denies constipation, nausea or vomiting Genitourinary Genitourinary ED: Denies dysuria, hematuria or urinary frequency Musculoskeletal Musculoskeletal: Denies arthralgias, myalgias or neck pain Integumentary Denies abscess, Abrasions or rash Neurologic Neurologic: Denies headache(s), paresthesias or weakness Psychiatric Psychiatric: Denies anxiety, depression, suicidal ideation or suicidal thoughts Endocrine Endocrinology: Denies polydipsia or polyuria EXAM Physical Exam Const Vital Signs: 09/13/23 09:54 09/13/23 11:54 09/13/23 13:00 Temperature 96.5 F L Temperature Source Temporal Pulse Rate 77 68 60 Respiratory Rate 18 18 18 Blood Pressure 134/94 H 98/78 106/72 Blood Pressure Mean 107 84 83 Pulse Ox 99 95 Oxygen Delivery Method Room Air Room Air 09/13/23 13:51 Temperature 96.5 F L Temperature Source Pulse Rate 53 L Respiratory Rate 14 Blood Pressure 92/64 Blood Pressure Mean 73 Pulse Ox 96 Oxygen Delivery Method Positive well nourished General Appearance ED: NAD; Negative for pallor HEENT Reports moist mucous membranes normocephalic and atraumatic Eyes PERRL and EOMs intact bilaterally Resp normal respiratory effort Cardio regular rate and regular rhythm GI GI Narrative: Diffusely tender abdomen. Soft. No peritoneal signs. Neuro CN's II-XII intact bilaterally Sensorium / Orientation: alert Motor Exam: strength 5/5 throughout Psych mental status grossly normal Skin General Skin Exam: Negative for jaundice or pallor MDM MDM MDM Narrative Medical decision making narrative: Patient presenting with abdominal pain. Patient presenting with right flank pain. Differential includes colitis, diverticulitis, gastritis, pancreatitis, acute cholecystitis, constipation, appendicitis, UTI, pyelonephritis, calculi, ureteral calculi, obstruction, malignancy, dehydration, electrolyte abnormalities, ovarian torsion. Patient medicated with morphine, Zofran. Patient given IV fluids. Patient does not know if she has a gallbladder anymore. CBC will be obtained to assess white blood cell count, hemoglobin, platelets. CMP to assess renal function, electrolytes, liver function, glucose. Lipase to assess for pancreatitis. Urinalysis to assess for UTI. CBC shows normal white blood cell count of 5.1. Hemoglobin 12.8. Platelets normal at 167. Renal function and electrolytes within normal limits. LFTs are normal. Lipase negative. Urinalysis has positive nitrites with 0-5 squamous epithelial cells and 25 leukocyte esterase with 3+ bacteria. I will send this for culture. Patient is not complaining of dysuria or frequency. She does not have any flank pain. She states she currently feels better and wants to go home. Return precautions discussed. Discharged stable condition. Impression: 1. Abdominal pain 2. Chronic diarrhea 3. Nausea/vomiting Lab Data Attestation: I reviewed the patient's lab results. Labs: Laboratory Results - last 24 hr 09/13/23 09/13/23 10:25 10:45 WBC 5.1 RBC 4.61 Hgb 12.8 Hct 41.9 MCV 90.9 MCH 27.8 MCHC 30.5 L RDW Std Deviation 47.1 H RDW Coeff of Yovana 14.1 Plt Count 167 MPV 9.8 Immature Gran % (Auto) 0.200 Neut % (Auto) 55.0 Lymph % (Auto) 36.0 [place] % (Auto) 5.5 Eos % (Auto) 2.3 Baso % (Auto) 1.0 Absolute Neuts (auto) 2.8 Absolute Lymphs (auto) 1.84 Nucleated RBC % 0 Sodium 143 Potassium 4.1 Chloride 111 H Carbon Dioxide 28.0 Anion Gap 4 L BUN 10 Creatinine 0.96 Estim Creat Clear Calc 82.44 Est GFR (MDRD) Af Amer 82 Est GFR (MDRD) Non-Af 67 BUN/Creatinine Ratio 10.5 Glucose 97 Calcium 9.3 Total Bilirubin 0.50 AST 20 ALT 29 Alkaline Phosphatase 81 Total Protein 6.7 Albumin 3.4 Globulin 3.3 Albumin/Globulin Ratio 1.0 Lipase 26 Urine Color Yellow Urine Clarity Sl. Cloudy Urine pH 6.0 Ur Specific [place] 1.015 Urine Protein Negative Urine Glucose (UA) Normal Urine Ketones Negative Urine Occult Blood Negative Urine Nitrite Positive H Urine Bilirubin Negative Urine Urobilinogen Normal Ur Leukocyte Esterase 25 H Urine RBC 0 SEEN Urine WBC 0-5 SEEN Ur Squamous Epith Cells 0-5 SEEN Urine Bacteria 3+ Urine Mucus 0 SEEN Radiography Diagnostic Testing: Clinical Impression(s) from Imaging Studies Abdomen/Pelvis CT 09/13/23 11:06 IMPRESSION: Stable dilatation and equalization of the distal ileal loop at the anastomotic site. Fecal material is seen in the colon. Electronically Signed: Kali Luque MD at 12:11 EDT , Discharge Plan Triage Chief Complaint: Abd Pain ED Provider: Alex Torres Dx/Rx/DC Orders Instructions: ED Abdominal Pain Unkn Cause Fem Prescriptions: New ondansetron 4 mg tablet,disintegrating 4 mg PO Q8H PRN PRN (Reason: Nausea) Qty: 14 0RF No Action acetaminophen 500 mg capsule 500 mg PO Q6H PRN (Reason: pain) Primary Care Provider: Mesfin Ramos Referrals: Mesfin Ramos, PA [Primary Care Provider] - Print Language: [place] Disposition Disposition: Home, Self Care
[2023-09-13 10:58] LABS: Color, Urine Yellow (Yellow); Glucose, Dipstick Normal (Normal); Ketone-Dipstick Negative (Negative); Leukocyte Esterase-Dipstick 25 /ul (Negative); Nitrite-Dipstick Positive (Negative); Occult Blood-Urine Negative /ul (Negative); Protein-Dipstick Negative (Negative); Specific Gravity, Urine 1.015 (1.002-1.030); Urine Bilirubin Dipstick Negative (Negative); Urine Clarity Sl. Cloudy (Clear); Urine Urobilinogen Normal (Normal)
--- NOTE | 2023-09-13 11:06 | CT_ITS ---
STUDY: CT ABDOMEN AND PELVIS WITH CONTRAST REASON FOR EXAM: Female, 43 years old. Abdominal pain RADIATION DOSAGE (If Supplied By Facility): CTDIvol = ( 15.54 ) mGy, DLP = ( 1173.31 ) mGycm TECHNIQUE: Transaxial images were obtained from the dome of the diaphragm to the symphysis pubis without oral contrast. IV 100mL Isovue-300 was administered. Sagittal and coronal images were reconstructed. Individualized dose optimization techniques were used for this CT. COMPARISON: Comparison is made with prior study dated May 28, 2023. FINDINGS: Stable groundglass appearance in both lower lobes suggestive of possible atelectasis. The visualized portions of the heart are within normal limits. Normal liver. I suspect small gallstones within the gallbladder lumen. Normal spleen. Normal pancreas. Normal bilateral adrenal glands. Normal right kidney. Normal left kidney. Normal visualized stomach. Once again, there is dilatation and fecal is elevation of the distal ileal loops at the site of the surgical anastomosis. Fecal material is seen in the colon. The appendix is visualized and appears normal. Normal abdominal aorta. Normal inferior vena cava. Normal retroperitoneum. Normal urinary bladder. Normal abdominal wall. Normal osseous structures. CT/Abdomen/Pelvis W IV Cont ONLY IMPRESSION: Stable dilatation and equalization of the distal ileal loop at the anastomotic site. Fecal material is seen in the colon. Electronically Signed: Kali Luque MD at 12:11 EDT ,
[2023-09-13 11:08] LABS: Bacteria 3+ /hpf (None Seen); Squamous Epithelial Cells - UA 0-5 SEEN /hpf (5-10); White Blood Cells 0-5 SEEN /hpf (0-5)
[2023-09-13] MEDS: Ondansetron 4 MG/2 ML Vial IV (11:19)
[2023-09-13] MEDS: Morphine 4 MG/ML Syringe IV ×2 (11:19→13:03)
[2023-09-13 11:54] VITALS: BP 98/78; PULSE 68; RESP 18
[2023-09-13 13:00] VITALS: BP 106/72; PULSE 60; RESP 18; O2SAT 95
[2023-09-13 13:51] VITALS: BP 92/64; PULSE 53; RESP 14; TEMP 35.8; O2SAT 96
== END 2023-09-13 14:30 | disposition home or self-care (01) ==
PROVIDERS: Emergency Provider Student in an Organized Health Care Education/Training Program; PCP Physician Assistant; Visit Provider Student in an Organized Health Care Education/Training Program
DX: K52.9 Noninfective gastroenteritis and colitis, unspecified (principal); M06.9 Rheumatoid arthritis, unspecified; J45.909 Unspecified asthma, uncomplicated; G89.29 Other chronic pain; Z87.891 Personal history of nicotine dependence
CPT/HCPCS: 74177; 80053; 81001; 83690; 85025; 87086; 87088; 87186; 96374; 96375; 96376; 99284; Q9967; A4216; J2405